=== PATIENT | female | born 1985 | race Caucasian/White ===

== ENCOUNTER 2023-03-25 10:53 | Outpatient (OUT) | payer OTHER, SELFPAY ==
--- NOTE | 2023-03-25 12:39 | PM.CN ---
Consult Note: HPI Data of Consult Patient: known to practice within the last 3 years Consult date: 03/25/23 Requesting Physician: Aaliyah Hampton MD Primary Care Provider: PETEY BURNETT Consult Narrative Reason for consult: low back, bilateral lower extremity pain. Narrative: this is a pleasant 38-year-old female who presents for assessment. She notes persistence of pain that radiates from her low back into the bilateral lower extremities. Her imaging was reviewed, which is significant for disc bulging at L4-L5 and L5-S1 with nerve impingement. She has engaged in physical therapy and provider directed home exercises for greater than a three month period, but these have not provided much relief. She utilizes various medications, including Lyrica and baclofen, which provided some relief. She otherwise denies adverse medication side effects or loss of bowel or bladder control. cc:: CC: Aaliyah Hampton MD Review of Systems ROS Status of ROS 10 or more systems reviewed and unremarkable except as noted in history and below Exam Constitutional Common normals: no apparent distress, oriented x3 and healthy appearing Respiratory Common normals: normal respiratory effort Effort & inspection: able to speak in complete sentences Back & Pelvis Other: tenderness to palpation throughout the bilateral lumbar spine and paraspinal musculature. Pain is elicited with flexion, extension, and lateral rotation of the lumbar spine. Strength is unremarkable throughout the bilateral lower extremities except for decreased strength rated at four out of five in the bilateral quadriceps femoris, anterior tibialis. Sensation noted to be unremarkable throughout bilateral lower extremities except for dysesthesia in the bilateral L4, L5 dermatomal distributions. Coordination remains intact. Gait remains nonantalgic. Extremity Common normals: normal to inspection Neuro Common normals: oriented x3, CN's II-XII intact bilaterally and no focal motor deficits Psych Common normals: mental status grossly normal and cooperative Assessment and Plan Assessment and Plan (1) Lumbar disc displacement without myelopathy: (2) Lumbar spinal stenosis: Plan this is a pleasant 38-year-old female who presents for assessment. She notes persistence of pain that radiates from her low back into the bilateral lower extremities. She has failed to respond to conservative measures for greater than a three month period, as noted above. Given her symptomatology and imaging findings, it is prudent to attempt bilateral L5 transforaminal epidural steroid injections to provide analgesia. Depending on her response, she may benefit from bilateral L4 transforaminal epidural steroid injections. She is in agreement with this plan. Medications were reviewed, and no changes were made at this time. She will follow-up after the procedure is completed.
== END 2023-03-25 10:54 | disposition home or self-care (01) ==
PROVIDERS: PCP Physician Assistant; Visit Provider Anesthesiology
DX: M51.26 Other intervertebral disc displacement, lumbar region (principal); M48.061 Spinal stenosis, lumbar region without neurogenic claudication
CPT/HCPCS: G0463

== ENCOUNTER 2023-04-01 07:34 | Day surgery (SDC) | payer OTHER, SELFPAY ==
[2023-04-01 07:49] VITALS: BP 115/76; PULSE 56; RESP 14; TEMP 36.7; O2SAT 99
[2023-04-01 07:55] LABS: HCG Qualitative NEGATIVE (NEGATIVE)
[2023-04-01] MEDS: IOHEXOL 240 MG/ML - 10 ML VIAL INJ (08:40)
[2023-04-01] MEDS: LIDOCAINE HCL 2% PF 100 MG/5 ML VIAL INJ (08:40)
[2023-04-01] MEDS: BUPIVACAINE HCL 0.25% PF 25 MG/10 ML VIAL INJ (08:40)
[2023-04-01] MEDS: TRIAMCINOLONE ACETONIDE 40 MG/ML VIAL INJ (08:41)
--- NOTE | 2023-04-01 08:42 | W.PM.PROCNOT ---
Date of procedure: 04/01/23 Pre-op diagnosis: Lumbar stenosis with neurogenic claudication Post-op diagnosis: same Procedure: Procedure: Bilateral L5-S1 transforaminal epidural steroid injection Medications: Bupivacaine 0.25% 2cc, normal saline 0.9% 1cc, kenalog 40mg The patient was seen and examined in the preoperative holding area.? Informed consent was obtained and placed on the chart.? Patient was brought to the medical procedure unit and placed in the prone position where a timeout was completed verifying the correct patient, procedure site, position, and planned special equipment using sterile aseptic technique.? Under direct fluoroscopic visualization a 25-gauge Quincke tipped spinal needle was advanced at level left L5-S1 to the designated neural foramen where contrast dye was injected to show adequate spread.? There was no evidence of vascular or adverse uptake.? Epidural spread was appreciated.? The above-mentioned injectate was then placed in a 1.5 mL aliquot preceded by negative aspiration.? The needle was removed. The same procedure, at the same level, was completed on the opposite side. ? Patient was taken to the postprocedural recovery area and monitored for an appropriate length of time before found suitable for discharge in the accompaniment of a responsible adult. Anesthesia: None Surgeon: Aaliyah Hampton Pathology: none sent Condition: stable
[2023-04-01 14:19] VITALS: BP 137/62; BP 144/69; PULSE 60; PULSE 62; RESP 18; O2SAT 97
== END 2023-04-01 08:47 | disposition home or self-care (01) ==
PROVIDERS: PCP Physician Assistant; Visit Provider Anesthesiology
DX: M48.062 Spinal stenosis, lumbar region with neurogenic claudication (principal)
CPT/HCPCS: 36415; 64483; 84703; Q9966

== ENCOUNTER 2023-04-15 08:22 | Day surgery (SDC) | payer OTHER, SELFPAY ==
[2023-04-15 08:48] VITALS: BP 109/81; PULSE 63; RESP 16; TEMP 36.6; O2SAT 100
[2023-04-15 08:50] LABS: HCG Qualitative NEGATIVE (NEGATIVE)
[2023-04-15] MEDS: IOHEXOL 240 MG/ML - 10 ML VIAL INJ (09:44)
[2023-04-15] MEDS: TRIAMCINOLONE ACETONIDE 40 MG/ML VIAL INJ (09:44)
[2023-04-15] MEDS: BUPIVACAINE HCL 0.25% PF 25 MG/10 ML VIAL INJ (09:44)
[2023-04-15] MEDS: LIDOCAINE HCL 2% PF 100 MG/5 ML VIAL INJ (09:44)
--- NOTE | 2023-04-15 09:46 | P.ON_ITS ---
Date of procedure: 04/15/23 Pre-op diagnosis: Lumbar stenosis with neurogenic claudication Post-op diagnosis: same Procedure: Procedure: Bilateral L4-5 transforaminal epidural steroid injection Medications: Bupivacaine 0.25% 2cc, lidocaine 1% 1cc, kenalog 80mg The patient was seen and examined in the preoperative holding area.? Informed consent was obtained and placed on the chart.? Patient was brought to the medical procedure unit and placed in the prone position where a timeout was completed verifying the correct patient, procedure site, position, and planned special equipment using sterile aseptic technique.? Under direct fluoroscopic visualization a 25-gauge Quincke tipped spinal needle was advanced at level left L4-5 to the designated neural foramen where contrast dye was injected to show adequate spread.? There was no evidence of vascular or adverse uptake.? Epidural spread was appreciated.? The above-mentioned injectate was then placed in a 1.5 mL aliquot preceded by negative aspiration.? The needle was removed. The same procedure, at the same level, was completed on the opposite side. ? Patient was taken to the postprocedural recovery area and monitored for an appropriate length of time before found suitable for discharge in the accompaniment of a res ponsible adult. Anesthesia: None Surgeon: Aaliyah Hampton Pathology: none sent Condition: stable Disposition: no change
[2023-04-15 13:59] VITALS: BP 120/79; BP 124/78; PULSE 74; PULSE 76; RESP 18; O2SAT 97
== END 2023-04-15 09:50 | disposition home or self-care (01) ==
LOC: SURGOUT 08:23
PROVIDERS: PCP Physician Assistant; Visit Provider Anesthesiology
DX: M48.062 Spinal stenosis, lumbar region with neurogenic claudication (principal)
CPT/HCPCS: 36415; 64483; 84703; Q9966

== ENCOUNTER 2023-04-29 13:00 | Outpatient (OUT) | payer OTHER, SELFPAY ==
--- NOTE | 2023-04-29 14:11 | PM.CN ---
Consult Note: HPI Data of Consult Patient: known to practice within the last 3 years Consult date: 04/29/23 Requesting Physician: Aaliyah Hampton MD Primary Care Provider: PETEY BURNETT Consult Narrative Reason for consult: low back pain Narrative: this is a pleasant 38-year-old female who presents for assessment. She had significant relief after her recent lumbar epidural steroid injection of her bilateral lower extremity pain. She notes some improvement of her axial low back pain, but this still persists currently. She had a lumbar radiofrequency ablation completed in May 2022, which provided significant relief of >50% for greater than six months. She continues to engage in a course of provider directed home exercises, which has not provided relief for greater than six weeks. She continues to utilize [id number] pain medications, as well as Lyrica and baclofen, which provide mild relief. She otherwise denies effort medication side effects or loss of bowel or bladder control. cc:: CC: Aaliyah Hampton MD Review of Systems ROS Status of ROS 10 or more systems reviewed and unremarkable except as noted in history and below [facility] Medical History Surgical History Meds Home Medications and Allergies Home Medications Medication Instructions Recorded Confirmed Type acetaminophen 325 mg capsule 650 mg PO BID 03/27/23 04/15/23 History (Tylenol) alprazolam 0.25 mg tablet (Xanax) 0.25 mg PO DAILY PRN anxiety 03/27/23 04/15/23 History baclofen 10 mg tablet 10 mg PO .hs PRN muscle spasm 03/27/23 04/15/23 History duloxetine 30 mg capsule,delayed 30 mg PO QDAY 03/27/23 04/15/23 History release duloxetine 60 mg capsule,delayed 60 mg PO QDAY 03/27/23 04/15/23 History release pantoprazole 20 mg tablet,delayed 20 mg PO DAILY 03/27/23 04/15/23 History release pregabalin 50 mg capsule 50 mg PO TID 03/27/23 04/15/23 History propranolol 120 mg capsule,24 120 mg PO Q24H 03/27/23 04/15/23 History hr,extended release topiramate 50 mg tablet 50 mg PO BID 03/27/23 04/15/23 History Allergies Allergy/AdvReac Type Severity Reaction Status Date / Time latex Allergy Severe Rash Verified 04/01/23 07:46 amitriptyline AdvReac Mild Nausea Unverified 04/15/23 08:47 NSAIDS (Non-Steroidal AdvReac Verified 04/01/23 07:46 Anti-Inflamma Exam Constitutional Common normals: no apparent distress, oriented x3 and healthy appearing Respiratory Common normals: normal respiratory effort Effort & inspection: able to speak in complete sentences Back & Pelvis Other: tenderness to palpation throughout the lumbar spine and paraspinal musculature. Pain is elicited with flexion, extension, and lateral rotation of the lumbar spine. Facet loading maneuvers aree positive bilaterally. Coordination remains intact. Gait remains nonantalgic. Extremity Common normals: normal to inspection Neuro Common normals: oriented x3, CN's II-XII intact bilaterally and no focal motor deficits Psych Common normals: mental status grossly normal and cooperative Assessment and Plan Assessment and Plan (1) Lumbar spondylosis: (2) Lumbar spinal stenosis: (3) Lumbar disc displacement without myelopathy: Plan this is a pleasant 38-year-old female who presents for assessment. I am glad that she had significant relief of her radiating pain after her recent lumbar epidural steroid injection. I suspect that her residual axial low back pain is a consequence of her lumbar spondylosis. I suspect that the effects of her previous ablation have worn off, given her symptoms. Given her current symptomatology and previous relief, it is prudent to repeat bilateral L4-L5, L5-S1 radio frequency ablation under fluoroscopic guidance. This will be done at the standard eighty degree Celsius temperature for ninety seconds at each level. She is in agreement with this plan. Medications were reviewed, and no changes were made at this time. She will follow-up after the procedure is completed.
== END 2023-04-29 13:01 | disposition home or self-care (01) ==
LOC: PM 13:00
PROVIDERS: PCP Physician Assistant; Visit Provider Anesthesiology
DX: M47.816 Spondylosis without myelopathy or radiculopathy, lumbar region (principal); M51.26 Other intervertebral disc displacement, lumbar region; M48.061 Spinal stenosis, lumbar region without neurogenic claudication
CPT/HCPCS: G0463

== ENCOUNTER 2023-07-02 11:09 | Outpatient (OUT) | payer OTHER, SELFPAY ==
[2023-07-02 11:56] LABS: Creatine Kinase 55 U/L (26-192); Magnesium 1.9 mg/dL (1.8-2.4); Myoglobin 24 ng/mL (9-82)
[2023-07-03 12:09] LABS: ANA Direct Negative (Negative)
== END 2023-07-02 11:10 | disposition home or self-care (01) ==
LOC: LAB 11:10
PROVIDERS: PCP Physician Assistant
DX: M79.10 Myalgia, unspecified site (principal)
CPT/HCPCS: 36415; 82550; 83735; 83874

== ENCOUNTER 2023-08-09 17:28 | Emergency (ER) | payer OTHER, SELFPAY ==
[2023-08-09 17:32] VITALS: BP 129/94; PULSE 71; RESP 20; TEMP 37; O2SAT 100; BMI 26.5
--- NOTE | 2023-08-09 18:06 | ED.URI1 ---
HPI - URI/Sore Throat General Chief Complaint: Upper Respiratory Infection Stated Complaint: FLU LIKE SYMPTOMS, DIFF BREATHING Time Seen by Provider: 08/09/23 18:06 Source: patient Limitations: no limitations History of Present Illness HPI Narrative: is patient's here with aches and pains sinus drainage slight sore throat. 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 She did receive the influenza vaccine this year. She had Covid previously and code vaccines but none recently. A family member had Covid two weeks ago but she didn't start feeling bad until today. She does not have nausea vomiting or diarrhea there is no shortness of breath. Slight cough. She is otherwise healthy. Related Data Home Medications Medication Instructions Recorded Confirmed alprazolam 0.25 mg tablet (Xanax) 0.25 mg PO DAILY PRN anxiety 03/27/23 08/09/23 baclofen 10 mg tablet 10 mg PO .hs PRN muscle spasm 03/27/23 08/09/23 duloxetine 30 mg capsule,delayed 90 mg PO QDAY 03/27/23 08/09/23 release pregabalin 50 mg capsule 50 mg PO TID 03/27/23 08/09/23 propranolol 120 mg capsule,24 120 mg PO Q24H 03/27/23 08/09/23 hr,extended release cariprazine 1.5 mg capsule 1.5 mg PO DAILY 08/09/23 08/09/23 (Vraylar) ondansetron 4 mg disintegrating 4 mg PO DAILY PRN nausea and 08/09/23 08/09/23 tablet vomiting rimegepant 75 mg disintegrating 75 mg PO DAILY PRN migraine 08/09/23 08/09/23 tablet (Nurtec ODT) headache trazodone 50 mg tablet 50 mg PO DAILY 08/09/23 08/09/23 Allergies Allergy/AdvReac Type Severity Reaction Status Date / Time latex Allergy Severe Rash Verified 04/01/23 07:46 amitriptyline AdvReac Mild Nausea Unverified 04/15/23 08:47 NSAIDS (Non-Steroidal AdvReac Verified 04/01/23 07:46 Anti-Inflamma PFSH PFS Medical History Surgical History Social History Smoking status: Never smoker Exam Narrative Exam Narrative: awake alert pleasant does not appear acutely ill. Her pulse ox is a hundred percent on room air there is no respiratory distress she complete sentences there is no cough during the examination. Overall her chest examination the lungs are completely clear with no wheezes rales or rhonchi there is no pleural or pericardial rub. HEENT showed no evidence of pharyngitis. There is no sinus drainage or discharge at this time. Nasal areas not congested. Her joints not red, warm or swollen she just has generalized aches and pains. Constitutional Vital Signs, click to edit/add: Last Vital Signs Temp 98.6 F 08/09/23 17:32 Pulse 71 08/09/23 17:32 Resp 20 08/09/23 17:32 BP 129/94 H 08/09/23 17:32 Pulse Ox 100 08/09/23 17:32 O2 Del Method Room Air 08/09/23 17:32 Course Vital Signs Vital signs: Vital Signs Temperature 98.6 F 08/09/23 17:32 Pulse Rate 71 08/09/23 17:32 Respiratory Rate 20 08/09/23 17:32 Blood Pressure 129/94 H 08/09/23 17:32 Pulse Oximetry 100 08/09/23 17:32 Oxygen Delivery Method Room Air 08/09/23 17:32 Temperature 98.6 F 08/09/23 17:32 Pulse Rate 71 08/09/23 17:32 Respiratory Rate 20 08/09/23 17:32 Blood Pressure 129/94 H 08/09/23 17:32 Pulse Oximetry 100 08/09/23 17:32 Oxygen Delivery Method Room Air 08/09/23 17:32 MDM - URI/Sore Throat MDM Narrative Medical decision making narrative: screening tests will include influenza Covid and a chest x-ray. She probably has a viral syndrome. Care will be turned over to Dr. bolanos at the change of shift. Covid testing came back positive while here in the Emergency Room. This was discussed with the patient Discharge Plan Discharge Chief Complaint: Upper Respiratory Infection Clinical Impression: Viremia Patient Disposition: Home, Self-Care Time of Disposition Decision: 18:54 Prescriptions / Home Meds: No Action baclofen 10 mg tablet 10 mg PO .hs PRN (Reason: muscle spasm) propranolol 120 mg capsule,extended release 24 hr 120 mg PO Q24H duloxetine 30 mg capsule,delayed release(DR/EC) 90 mg PO QDAY pregabalin 50 mg capsule 50 mg PO TID alprazolam [Xanax] 0.25 mg tablet 0.25 mg PO DAILY PRN (Reason: anxiety) Patient Comments: very rare need trazodone 50 mg tablet 50 mg PO DAILY Nurtec ODT 75 mg tablet,disintegrating 75 mg PO DAILY PRN (Reason: migraine headache) ondansetron 4 mg tablet,disintegrating 4 mg PO DAILY PRN (Reason: nausea and vomiting) Vraylar 1.5 mg capsule 1.5 mg PO DAILY Additional Instructions: off work five days, follow with primary care doctor. Ibuprofen or Tylenol for fever reduction. Stay hydrated. Stand Alone Forms: Portal Instructions Referrals: PETEY BURNETT [Primary Care Provider] - 1 week
--- NOTE | 2023-08-09 18:15 | XR_ITS ---
The [address] [address] Patient Name: NORAH ESCAMILLA MRN: [id number] date: 1985 Sex: F Assigned Patient Location: ER Current Patient Location: Accession/Order Number: [id number] Exam Date: 08/09/2023 18:50 Report Date: 08/09/2023 19:21 At the request of: MIGEL JACOBSEN Procedure: XR chest 1V EXAMINATION: XR chest 1V HISTORY: Headache, dizziness, cough and shortness of breath COMPARISON: Chest x-rays 11/23/2019 TECHNIQUE: Portable chest FINDINGS: The lung parenchyma is free of consolidation or infiltrate. No pneumothorax or pleural effusion. The cardiac, mediastinal and hilar contours are normal. The visualized osseous structures exhibit no gross abnormality. XR/XR chest 1V IMPRESSION: No acute cardiopulmonary abnormality. Electronically authenticated by: MANOHAR TANG Date: 08/09/2023 19:21
[2023-08-09 18:49] LABS: SARS-CoV-2 Ag POSITIVE (NEGATIVE)
[2023-08-09 18:49] LABS: Influenza Virus A Antigen Negative; Influenza Virus B Antigen Negative; Internal Control Within Normal Limits
== END 2023-08-09 19:21 | disposition home or self-care (01) ==
PROVIDERS: Emergency Provider Emergency Medicine Emergency Medical Services; PCP Physician Assistant
DX: U07.1 COVID-19 (principal); Z86.16 Personal history of COVID-19; Z79.899 Other long term (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 therapy
CPT/HCPCS: 71045; 87798; 87804; 87811; 99285

== ENCOUNTER 2023-08-26 12:56 | Outpatient (RCR) | payer OTHER, SELFPAY | END 2023-09-15 09:00 | disposition home or self-care (01) | LOC: PT 12:56 | PROVIDERS: PCP Physician Assistant; Visit Provider Nurse Practitioner Family | DX: M47.812 Spondylosis without myelopathy or radiculopathy, cervical region (principal); M79.10 Myalgia, unspecified site | CPT/HCPCS: 97012; 97110; 97140; 97162 ==

== ENCOUNTER 2023-09-16 09:02 | Outpatient (RCR) | payer OTHER, SELFPAY | END 2023-09-25 15:16 | disposition home or self-care (01) | LOC: PT 09:02 | PROVIDERS: PCP Physician Assistant; Visit Provider Nurse Practitioner Family | DX: M47.812 Spondylosis without myelopathy or radiculopathy, cervical region (principal); M79.10 Myalgia, unspecified site | CPT/HCPCS: 97012; 97110; 97112; 97140 ==

== ENCOUNTER 2023-09-25 09:08 | Outpatient (OUT) | payer OTHER, SELFPAY ==
--- NOTE | 2023-09-25 09:19 | P.CN_ITS ---
Consult Note: HPI Data of Consult Patient: known to practice within the last 3 years Consult date: 04/29/23 Requesting Physician: Miladys Vivas NP Primary Care Provider: PETEY BURNETT Consult Narrative Reason for consult: low back pain Narrative: this is a pleasant 38-year-old female who presents for assessment. She had significant relief after her recent lumbar epidural steroid injection of her bilateral lower extremity pain. She notes some improvement of her axial low back pain, but this still persists currently. She had a lumbar radiofrequency ablation completed in the past, which provided significant relief of >50% for greater than six months. She continues to engage in a course of provider directed home exercises, which has not provided relief for greater than six weeks. She continues to utilize [id number] pain medications, as well as Lyrica and baclofen, which provide mild relief. She otherwise denies effort medication side effects or loss of bowel or bladder control. cc:: CC: Miladys Vivas NP Review of Systems ROS Status of ROS 10 or more systems reviewed and unremark able except as noted in history and below Musculoskeletal Reports: back pain PFSH PFSH Medical History Surgical History H/O gastric bypass ?Z98.84 - Bariatric surgery status (ICD-10) S/P foot surgery, right ?Z98.890 - Other specified postprocedural states (ICD-10) S/P cholecystectomy ?Z90.49 - Acquired absence of other specified parts of digestive tract (ICD- 10) S/P ?Z98.891 - History of uterine scar from previous surgery (ICD-10) Social History Smoking status: Never smoker Meds Home Medications and Allergies Home Medications Medication Instructions Recorded Confirmed Type alprazolam 0.25 mg tablet (Xanax) 0.25 mg PO DAILY PRN anxiety 03/27/23 08/09/23 History baclofen 10 mg tablet 10 mg PO .hs PRN muscle spasm 03/27/23 08/09/23 History duloxetine 30 mg capsule,delayed 90 mg PO QDAY 03/27/23 08/09/23 History release pregabalin 50 mg capsule 50 mg PO TID 03/27/23 08/09/23 History propranolol 120 mg capsule,24 120 mg PO Q24H 03/27/23 08/09/23 History hr,extended release cariprazine 1.5 mg capsule 1.5 mg PO DAILY 08/09/23 08/09/23 History (Vraylar) ondansetron 4 mg disintegrating 4 mg PO DAILY PRN nausea and 08/09/23 08/09/23 History tablet vomiting rimegepant 75 mg disintegrating 75 mg PO DAILY PRN migraine 08/09/23 08/09/23 History tablet (Nurtec ODT) headache trazodone 50 mg tablet 50 mg PO DAILY 08/09/23 08/09/23 History Allergies Allergy/AdvReac Type Severity Reaction Status Date / Time latex Allergy Severe Rash Verified 04/01/23 07:46 amitriptyline AdvReac Mild Nausea Unverified 04/15/23 08:47 NSAIDS (Non-Steroidal AdvReac Verified 04/01/23 07:46 Anti-Inflamma Exam Constitutional Documenting provider has reviewed patient's vital signs: yes Common normals: no apparent distress, oriented x3 and healthy appearing General appearance: cooperative HENMT Common normals: normocephalic, hearing grossly normal bilaterally and moist oral mucous membranes Head and scalp: normocephalic Eye Common normals: PERRL Pupil: PERRL Neck & C-Spine Common normals: full ROM General: normal visual inspection Chest Common normals: inspection of chest normal Respiratory Common normals: normal respiratory effort Effort & inspection: able to speak in complete sentences Back & Pelvis Lumbar spine/lower back: ROM limited, pain with ROM and straight leg raise negative bilaterally Sacroiliac joints: SI joints normal Other: tenderness to palpation throughout the lumbar spine and paraspinal musculature. Pain is elicited with flexion, extension, and lateral rotation of the lumbar spine. Facet loading maneuvers aree positive bilaterally. Coordination remains intact. Gait remains nonantalgic. Extremity Common normals: normal to inspection and full ROM Neuro Common normals: oriented x3, CN's II-XII intact bilaterally, moves all extremities and no focal motor deficits Sensorium/orientation: alert Motor exam: strength 5/5 throughout and no movement abnormalities noted Psych Common normals: mental status grossly normal and cooperative Speech: normal speech Thought process: normal thought process Assessment and Plan Assessment and Plan (1) Lumbar spondylosis: (2) Lumbar spinal stenosis: Plan this is a pleasant 38-year-old female who presents for assessment. I suspect that her residual axial low back pain is a consequence of her lumbar spondylosis. I suspect that the effects of her previous ablation have worn off, given her symptoms. Given her current symptomatology and previous relief, it is prudent to repeat bilateral L4-L5, L5-S1 radio frequency ablation under fluoroscopic guidance with 10mg PO valium for anxiety and safety. This will be done at the standard eighty degree Celsius temperature for ninety seconds at each level. She is in agreement with this plan. Medications were reviewed, and no changes were made at this time. She will follow-up after the procedure is completed. continue current medications. tolerating well without side effects f/u 1 month after RFA
--- OUTSIDE RECORDS SUMMARY | 2023-09-25 09:22 | XMS_ITS | CCD ---
Author Name Unknown Address [address] [facility] [address] [place] [address] Organization [facility] Care Team Providers Care Product Design Manager Name Role Phone Vernon Castano III Primary Care Physician Eyad ROSAS DO, Rolland R Primary Care Provider MISC, DR CHO Attending Unavailable MISC, DR CHO Primary Care Unavailable MISC, DR CHO Admitting Unavailable PAY, DR RAUSCH Admitting Unavailable MISC, DR CHO Primary Care Unavailable PAY, DR RAUSCH Attending Unavailable PAY, DR RAUSCH Consulting Unavailable MISC, DR CHO Primary Care Unavailable KENTON, ANGELA Admitting Unavailable KENTON, ANGELA Attending Unavailable KENTON, ANGELA Consulting Unavailable KENTON, ANGELA Admitting Unavailable MISC, DR CHO Consulting Unavailable MISC, DR CHO Primary Care Unavailable KENTON, ANGELA Attending Unavailable KENTON, ANGELA Consulting Unavailable KENTON, ANGELA Admitting Unavailable MISC, DR CHO Consulting Unavailable MISC, DR HCO Primary Care Unavailable KENTON, ANGELA Attending Unavailable STANLEY, DR HERMES Park Consulting Unavailable KENTON, ANGELA Consulting Unavailable KENTON, ANGELA Admitting Unavailable MISC, DR CHO Primary Care Unavailable KENTON, ANGELA Attending Unavailable KENTON, ANGELA Consulting Unavailable HORTENCIA, PETEY Admitting Unavailable WEST, DR MANOHAR Walker Consulting Unavailable HORTENCIA, PETEY Attending Unavailable MISC, DR CHO Primary Care Unavailable HORTENCIA, PETEY Consulting Unavailable Jose DIETZer Attending Unavailable Oral DIETZ Admitting Unavailable Otis Burch Attending Unavailable NONE, XXXX Referring Unavailable MD Otis Burch Admitting Unavailable Oral DIETZ Attending Unavailable Otis Burch Referring Unavailable Otis Burch Attending Unavailable MD Otis Burch Admitting Unavailable Aaliyha Hampton MD Attending Unavailable Gieditis , Aaliyah Arellano Attending Unavailable Gieditis , Aaliyah Arellano Attending Unavailable Gifletcheritis , Aaliyah Arellano Attending Unavailable Allergies Allergy Classification Reported Allergen(s) Allergy Type Date of Onset Reaction(s) Facility (8 sources) Latex; Translations: [latex] Drug allergy 4 Cutaneous eruption (morphologic abnormality), Other: See Comments [facility] (12 sources) SUMAtriptan; Translations: [sumatriptan] Drug Allergy 7 Other: See Comments [facility] (1 source) Amitriptyline Drug Allergy [facility] (1 source) NSAIDs Drug allergy (disorder) [facility] (1 source) Plasmin Drug Allergy [facility] Medications Current Medications Medication Drug Class(es) Dates Sig (Normalized) Sig (Original) bisacodyl 5 mg delayed release oral tablet (2 sources) Stimulant Laxative Start: 01-25-2021 take 1 tablet by mouth once daily Dulcolax 5 mg Tab-EC 5 mg = 1 tab(s), Oral, Daily, # 50 tab(s), Refills(s) 1, Pharmacy: [facility], 155, cm, 01/25/21 14:00:00 EDT, Height/Length Dosing, 77.7, kg, 01/25/21 14:00:00 EDT, Weight Dosing Start Date: 01/25/21 Status: Ordered dicyclomine hydrochloride 10 mg oral capsule (6 sources) Anticholinergic Start: 03-01-2022 take 4 capsules by mouth four times daily as needed for pain Bentyl 10 mg Cap 40 mg, Oral, QID, PRN Pain, # 45 cap(s), Refills(s) 4, Pharmacy: [facility], 155, cm, 03/01/22 15:01:00 EDT, Height/Length Dosing, 54, kg, 03/01/22 15:01:00 EDT, Weight Dosing Start Date: 03/01/22 Status: Ordered dicyclomine HCl (BENTYL ORAL) Take by mouth. 0 Active Comment on above: Take by mouth. Nurtec ODT (4 sources) Start: 01-25-2021 take 1 mg by mouth once Nurtec ODT mg, Oral, Once, Refills(s) 0 Start Date: 01/25/21 Status: Ordered Protonix (6 sources) Proton Pump Inhibitor Start: 09-15-2020 Protonix Oral, Daily, Refills(s) 0 Start Date: 09/15/20 Status: Ordered take 1 tablet by mouth once mayuri y pantoprazole DR (PROTONIX) 40 mg tablet Take 40 mg by mouth once daily. 0 Active Comment on above: Take 40 mg by mouth once daily. Miralax (2 sources) Osmotic Laxative Start: 01-25-2021 take 1 g by mouth once daily MiraLax gm, Oral, Daily, Refill(s) 0 Start Date: 01/25/21 Status: Ordered pregabalin 25 mg oral capsule (4 sources) Start: 03-01-2022 take 1 mg by mouth three times daily Lyrica 25 mg Cap mg cap(s), Oral, TID, Refills(s) 0 Start Date: 03/01/22 Status: Ordered Propranolol (6 sources) beta-Adrenergic Ron Start: 01-25-2021 propranolol Refills(s) 0 Start Date: 01/25/21 Status: Ordered Start: 12-28-2020 take 1 capsule by [facility] once daily propranolol ER (INDERAL LA) 120 mg 24 hr capsule Take 120 mg by mouth once daily. 0 12/28/2020 Active Comment on above: Take 120 mg by mouth once daily. tiZANidine 4 mg oral capsule (2 sources) Central alpha-2 Adrenergic Agonist Start: 04-27-2019 take 1 capsule by mouth three times daily as needed tizanidine 4 mg oral capsule 4 mg = 1 cap(s), Oral, TID, PRN Prophylaxis, Refills(s) 0 Start Date: 04/27/19 Status: Ordered topiramate 100 mg oral tablet (6 sources) Start: 04-27-2019 take 1 tablet by mouth twice daily topiramate 100 mg Tab 100 mg = 1 tab(s), Oral, BID, Refills(s) 0, Migraine headache Start Date: 04/27/19 Status: Ordered take 1 tablet by mouth twice edmund ly topiramate (TOPAMAX) 50 mg tablet Take 50 mg by mouth twice daily. 0 Active Comment on above: Take 50 mg by mouth twice daily. Ventolin HFA 90 mcg/inh Aerosol (4 sources) Start: 9 take 2 puff(s) by inhalation four times daily Ventolin HFA 90 mcg/inh Aerosol 2 puff(s), Inhalation, QID Wheezing, Refill(s) 0 Start Date: 04/27/19 Status: Ordered 24 hr verapamil hydrochloride 120 mg extended release oral capsule (6 sources) Calcium Channel Ron Start: 1 take 1 mg by mouth once daily verapamil 120 mg Cap-ER mg cap(s), Oral, Daily, Refills(s) 0 Start Date: 01/25/21 Status: Ordered Start: 12-28-2020 take 1 tablet by antwan th once daily verapamil SR (CALAN SR, ISOPTIN SR) 120 mg CR tablet Take 1 tablet by mouth once daily. 0 12/28/2020 Active Comment on above: Take 1 tablet by antwan th once daily. Work Excuse (1 source) Start: 08-29-2022 Work Excuse Wo rk Excuse, Please excuse patient from work 08/28/22 and 08/29/22, Print Requisition, Compound Start Date: 08/29/22 Status: Ordered Completed/Discontinued Medications Medication Drug Class(es) Dates Sig (Normalized) Sig (Original) ALPRAZolam (2 sources) Benzodiazepine alprazolam (XANA X ORAL) Take by mouth. 0 Active Comment on above: Take by mouth. baclofen 10 mg oral tablet (2 sources) gamma-Aminobutyric Acid-ergic Agonist baclofen (LIORESAL) 10 mg tablet Take 10 mg by mouth as directed. 0 Active Comment on above: Take 10 mg by mouth as directed. biotin 5 mg disintegrating oral tablet (2 sources) biotin 5,000 mcg ODT Take by mouth. 0 Active Comment on above: Take by mouth. cetirizine hydrochloride 10 mg oral tablet (2 sources) Histamine-1 Receptor Antagonist take 1 tablet by mouth once daily cetirizine (ZYRTEC) 10 mg tablet Take 10 mg by mouth once daily. 0 Active Comment on above: Take 10 mg by mouth once daily. Clotrimazole (2 sources) Azole Antifungal clotrimazole (ALEVAZOL TOPICAL) Apply to affected area. 0 Active Comment on above: Apply to affected ar ea. fexofenadine hydrochloride 180 mg oral tablet (2 sources) Histamine-1 Receptor Antagonist take 1 tablet by mouth once daily fexofenadine (RODY ALLERGY) 180 mg tablet Take 180 mg by mouth once daily. 0 Active Comment on above: Take 180 mg by mouth once daily. FLUoxetine 10 mg oral capsule (2 sources) Serotonin Reuptake Inhibitor take 1 capsule by mouth once daily FLUoxetine (PROZAC) 10 mg capsule Take 10 mg by mouth once daily. 0 Active Comment on above: Take 10 mg by mouth once daily. gabapentin 100 mg oral capsule (2 sources) Anti-epileptic Agent Start: 10-13-2020 take 1 capsule by mouth three times daily gabapentin (NEURONTIN) 100 mg capsule Take 1 capsule by mouth three times daily for 14 days. 42 capsule 0 10/13/2020 Active Comment on above: Take 1 capsule by mo [facility] three times daily for 14 days. Lactobacillus acidophilus (2 sources) Lactobacillus acidophilus (PROBIOTIC ORAL) Take by mouth. 0 Active Comment on above: Take by mouth. multivit-min/iron/f olic acid/K (BARIATRIC MULTIVITAMINS ORAL) (2 sources) multivit-min/iro n/f olic acid/K (BARIATRIC MULTIVITAMINS ORAL) Take by mouth. 0 Active Comment on above: Take by mouth. nystatin 100 unt/mg topical powder (2 sources) Polyene Antifungal Start: 01-23-2021 nystatin (MYCOSTATIN) powder Indications: S/P gastric bypass , Fungal skin infection Apply to affected skin up to 4 times per day 60 g 2 01/23/2021 Active Comment on above: Apply to affected sk in up to 4 times per day ondansetron 4 mg disintegrating oral tablet (2 sources) Serotonin-3 Receptor Antagonist Start: 10-13-2020 take 1 tablet by mouth every eight hours as needed ondansetron orally disintegrating (ZOFRAN ODT) 4 mg disintegrating tablet Take 1 tablet by mouth every 8 hours as needed for Nausea/Vomiting. 30 tablet 1 10/13/2020 Active Comment on above: Take 1 tablet by antwan every 8 hours as needed for Nausea/Vomiting. psyllium 525 mg oral capsule (2 sources) Start: 04-06-2020 take 8 capsules by mouth once daily Metamucil 525 mg oral capsule 1,050 mg = 2 cap(s), Oral, Daily, Take 2 hour apart from the other medications with at least 8 ounces of water, # 160 cap(s), Refills(s) 1, Pharmacy: [facility], 155, cm, 04/06/20 13:01:00 EDT, Height/Length Measured, 107.2, kg, 04/06/20 1... Start Date: 04/06/20 Status: Ordered rimegepant 75 mg disintegrating oral tablet (2 sources) Start: 01-12-2021 NURTEC ODT 75 mg disintegrating tablet Take 1 tablet by mouth PRN(NO DISPENSE) for Migraine Headache (see administration instructions). 0 01/12/2021 Active Comment on above: Take 1 tablet by antwan th PRN(NO DISPENSE) for Migraine Headache (see administration instructions). 72 hr scopolamine 0.0139 mg/hr transdermal system (2 sources) Anticholinergic Start: 10-13-2020 scopolamine (TRANSDERM-SCOP) patch 1.5 mg/72 hr (1 mg over 3 days) Apply 1 Patch as directed every 72 hours. Apply one patch behind the ear every 3 days 5 Patch 1 10/13/2020 Active Comment on above: Apply 1 Patch as dir ected every 72 hours. Apply one patch behind the ear every 3 days vitamin b12 1 mg oral tablet (2 sources) Vitamin B12 take 1 tablet by mouth once daily cyanocobalamin (VITAMIN B-12) 1,000 mcg tab Take 1,000 mcg by mouth once daily. 0 Active Comment on above: Take 1,000 mcg by mo uth once daily. Problems Active Problems Problem Classification Problem Date Documented Da te Episodic/Chronic Abdominal pain (6 sources) Left sided abdominal pain; Translations: [Left lower quadrant pain] Onset: 7 11-07-2020 Episodic Asthma (2 sources) Asthma; Translations: [Unspecified asthma, uncomplicated] 10-17-2020 Chronic Deficiency and other anemia (2 sources) Iron deficiency anemia; Translations: [Iron deficiency anemia, unspecified] 10-17-2020 Episodic Disorders of lipid metabolism (2 sources) Hyperlipidemia; Translations: [Hyperlipidemia, unspecified] 10-17-2020 Chronic Esophageal disorders (2 sources) Gastroesophageal reflux disease; Translations: [Gastro-esophageal reflux disease without esophagitis] 01-05-2020 Chronic Essential hypertension (2 sources) Hypertensive disorder; Translations: [Essential (primary) hypertension] 01-05-2020 Chronic Headache; including migraine (2 sources) Migraine; Translations: [Migraine, unspecified, not intractable, without status migrainosus] 01-05-2020 Chronic Other aftercare (1 source) Other usp (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 therapy; Translations: [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] Onset: 2 Episodic Other and unspecified benign neoplasm (4 sources) Polyp of colon 05-19-2020 Episodic Other gastrointestinal disorders (5 sources) Chronic idiopathic constipation; Translations: [Chronic idiopathic constipation] Onset: 2 Chronic Other gastrointestinal disorders (1 source) Bariatric surgery status; Translations: [Bariatric surgery status] Onset: 2 Episodic Other gastrointestinal disorders (4 sources) Alteration in bowel elimination 01-25-2021 Episodic Other gastrointestinal disorders (4 sources) Constipation 11-07-2020 Episodic Other gastrointestinal disorders (4 sources) Heartburn 05-19-2020 Episodic Other gastrointestinal disorders (1 source) History of bariatric surgical procedure; Translations: [Bariatric surgery status] Episodic Other nervous system disorders (1 source) Other chronic pain; Translations: [OTHER CHRONIC PAIN] Onset: 2 Chronic Other nervous system disorders (1 source) Incoordination; Translations: [Other lack of coordination] Onset: 2 Episodic Other nervous system disorders (4 sources) Muscular incoordination 11-07-2020 Episodic Other skin disorders (1 source) Skin finding; Translations: [Excessive and redundant skin and subcutaneous tissue] Episodic Residual codes; unclassified (2 sources) Obstructive sleep apnea syndrome; Translations: [Obstructive sleep apnea (adult) (pediatric)] 10-17-2020 Chronic Residual codes; unclassified (1 source) Acquired absence of other specified parts of digestive tract; Translations: [ACQ ABSENCE OTH PART DIGESTV TRACT] Onset: 2 Episodic Spondylosis; intervertebral disc disorders; other back problems (10 sources) Spondylosis without myelopathy or radiculopathy, lumbar region; Translations: [Other intervertebral disc degeneration, lumbar region] Onset: 2 Chronic Spondylosis; intervertebral disc disorders; other back problems (5 sources) Cervicalgia; Translations: [Spinal stenosis, cervical region] Onset: 2 Episodic Unclassified (4 sources) History of bypass of stomach 11-07-2020 Unclassified (1 source) LOW BACK PAIN, UNSPECIFIED; Translations: [LOW BACK PAIN, UNSPECIFIED] Onset: 2 Past or Other Problems Problem Classification Problem Date Documented Date Episodic/Chronic Calculus of urinary tract (2 sources) Ureteric stone; Translations: [Calculus of ureter] Onset: 06-27-2017 06-27-2017 Episodic Immunizations and screening for infectious disease (2 sources) Anti-nuclear factor positive; Translations: [Other specified abnormal immunological findings in serum] Onset: 07-23-2018 07-23-2018 Episodic Nausea and vomiting (2 sources) Postoperative nausea and vomiting; Translations: [Nausea with vomiting, unspecified] Onset: 10-24-2020 10-24-2020 Episodic Other connective tissue disease (2 sources) Fibromyalgia; Translations: [Fibromyalgia] Onset: 07-23-2018 07-23-2018 Episodic Other diseases of kidney and ureters (2 sources) Hydronephrosis; Translations: [Hydronephrosis with renal and ureteral calculous obstruction] Onset: 06-27-2017 06-27-2017 Episodic Other non-traumatic joint disorders (4 sources) Pain in right knee; Translations: [PAIN IN RIGHT KNEE] Onset: 05-24-2021 Episodic Other skin disorders (2 sources) Alopecia; Translations: [Nonscarring hair loss, unspecified] Onset: 07-23-2018 07-23-2018 Episodic Results Test Name Value Interpretation Reference Range Facility Coding Summary.on 10-17-2022 Coding Summary. [id number] Gh0bWw+P GhlYWQ+RO7WZMQnN12tgRFenP1DM 0yHIJ6DUHSWHFWVPI9KZY0ayWG9D WcjY3QnwhLh ExasfZLlRG69VUj1VRB2hFssMWhk oN1srFJmE6y9UtLtSA34oY27JYes CASyDuW0BqKefidoiOZm P5ziErRnpWWmUsi+PHRhYmxlIHdp HOMzTEhoETGrNgAgnHniQS8dPy6k ZGVyLWNvbGxhcHNlOiBj e8etFIVyRWfyRB6huWtnC4FvjPR2 EPPpi7u0Nh54aTR+VOCyFAK6mLgu ISoju795AyNep7pvIEC3 mMVdXSjcFCF0D51nv2S1QTYmQHHa ZGO5sNS0nQ9dhFffslvqA0XwmUHh HnQ8AVQ4jGGeaN8geNoh cnmkuI0xHbv+O51KNQ9XHEMBCL3X Zjq9T7PlFbgreVU+XT85HFBaKI53 uLSrcAXre6jetDg2FiAg RUWuANH6wWudIXacr2NiYWPsC29i aFEmu3E9VDMvwGjgkFSgMxIeyGZ2 bL0aVXpguhnhy3xatkuc Taurj2jpzm09xK49B78cPCeaLTRg UYG2GVIpLZPapEhsns6znT6rVv2+ SFxdd6mld8qglPq2BjGe MCSdyxVkwCbgRBJ4t5QeFd33C0Li fLmxh1NpCij7ae95fXCzt9M4nPP1 GThkQTXhsP8sCTvaZjC0 WVUgCiVspP55tHNcHAbaRd6pqDfy pMcdPD2eZPHmhbdmYYDwzW3pTCFv dPElmCwvXQ0dHKNesmru c556FeMiFBZ9IWYptYMxG7TdaH4a JjPiJFMyLHGzB4OtrFHbTRldR854 CWomMdI4CYEhedTxT3Vq QJNncIqkQpY5u4V7Lz9Vu3Bsdztu KEJ9KHuvTASyZcZvQlJkRaH7W7Rw Nas5MJXzbAggHG3tC7Se YYSzqshtjkdgaQE9XQLaZWNihL34 rHTpCBtlEx6jl1E4r656KEGlGRNu uS62Za0syHngNOBckDXF uJ8gwtlaj3ctsouzTkGaSRDgUJu6 WVi4AWXnbAsbVqVjMES9PuD8BFO0 sEZhnM9dcInekgerkS4c Oyc+O63cgF1cSVO5PEA7zwbsABKj brUuCS85DQ95L0ZwViwdsHBgxSK+ RKSqukKhvIdpHJ2qErOn l4sui1GiSAfuX0DfWFCdELjeDae6 XYKmCQW2kEA5uR5cHHBvEPvso1T8 aAR3S5HhnlIqww8xs0ds TXUvIHxrG52bkUAcw8F3KSWbaIB9 WWMktZbdUcGudD51Xpw+PGNvbGdy z9FoLwifh6lfl3nwrIs6 DkLnFIRecgDjvCynXYM6p2GsVy55 T45tJKmkZDVfKKEnJVOyXJIaeWzd hv6tnS0rFb0+PGNvbCB3 uSB4lB3sMIUjDsN3BJacC877CbZg pVNvMxpuz5uss9whhEg3IfSnMORd byEldGhuPED5y3FcMg98 O75bCGkxPLBeZUUoUIYwZAIemQtw gw8ldZ0mBy2+MO3wg2qnlq09vO63 dHI+IRJjVZB4oUquIWwj TJIgpD2mOFjhGaQ6ZZAxWdCrtL11 jVZkLBjgKt9xlUsvoTjbDQ3qSQKu ufwih268OqKua0qwOWSs kSWtLUmoIQB5K15ov4G9WEApTTAy VTD6bOT2hE6zgZgusobtfIZifIsh njRdzVheFLqyGKyiK253 IHRvcDsnPlBhdGllbnQgTmFtZTo8 R9TaQza8FEFlvOoaVL9vgCVkVUsa Bf3reIxfmKboUV6qLZIg lbecd619WzWfr2szUUVimKDiUNqm VTM3O27nx2X2ZRXlXGBdEVC1uOU0 nM1djGboqcberUPtrBme rhJyvQhaCBbbDJhlX323WORwcUit WmDtstGcVVWilKT2ID71BE86fOUn x7X7jDJ1H8DyGIBpsaxw qlufhLB1KPXvHGJtfL33Rq7tjEdr Gf4rZRGeONO5IRNjzHHmY4GskI6n YmZoDJMmWUVlC3SsdGDa EJkhM794MVmoSeD5MOLuemZoH3Pv FLFkzGhdVuG8v8E7Cd5WX3C5MB74 YI93jPEzh5P6hWR0E9Ze BCOoekyejofhcSL3HXRsNMErdX76 Hx8zmIrnAn0xNOAgVIX0BQLxmHLc V1CtjL4bQiCtZJHdRLQv I0ZzaRWzZPnkR072ZAnjGyY5IBHw oqYyH7FaIEXluClzFfL4q3F1Ro5N MQa1LM48DP70cXRuj5O8 pNQ0D3GwJOXyqingeavkxBD9OEEz PFBknA88Qv0eqSbmRc0hWSJqTDX0 ZETdiELiU8YkrH0yXyUb LLAwDTVjD1BiwYVvCYjnD310FGew YcA2JZBlnxXyW0KiTCZcqCvsBkL5 q5D0Uw3PXREeXF04ALD5 gYB1NJ94XE29O9FmGsawxQXohNZ+ PHRhYmxlIHdpZHRoPScxMDAlJyBz wVgaDP2kTo2zVZFxVESz iRrmnGWeCyCsh3bwOKRfTAtxER7v pYntG3QywBZ8RDUkz4x3Os09T73a Z4SlaFM+BBHnrSV8cBB0 fU0qKhVxGfI5OZmtU810WeBefBQk Peqjl2wcj7qpbZu5SdL6HCBcavXp pNcbDRP8u3FrGx79F44u DNmcMKPzOOCpVKChICZvxDqgki8u iG0lJw1+UMWkxJI1yVE3nH3kCrQc GxG4WXoiC796FlUgrGXy Epxab2lwp1viwWf6JdWmHYTemiXl iBjvEDG8b2XhVr56D5JbkAims6Iz Jos0qv58iIEfx9Y2kTS3 D3JrZMCxrluzhCXtmHddLG8xTKOh mohdBCAyeO0bNKXnT2h4PgEhFoE3 XUweZ5OcfhA1AEMemBRs PZeaYZE4Y91xg8G3XEQnYDNhDED6 uBW0nH8qwUgydahbdCHzeXmvlzBf rEbuUIptEVpgE829FUCa wBylSOUoaE8sOYZnrBIoeNbrBE0v CZYyelcfFjEZR1TSKHAWNNfHAMim dGQ+FRSxYRN2gLwaZCqa FCMktD0kIHQbY8e1OgLoVuY5FMnx D1MhAEAsohscOf36hX5cGqUtEmD9 HFjcZ9VlsnS9RCOlmWRt MQnvCZO9F40un9J1OEJoQLDkQUR3 lSR9xZ9ijQmrqrrxoOYabRtuyoZu wHqaUYroJDpfP689HHQk tJhmWoI1ZxW9GeR7GSR2W8KqFqy1 UARwaXyrDP9xqUJmGRbzJm3aqOqz wHqrTP5hYXRvheepFQCh mW4kMXAhyPGzzOceYK7yBQGnqlrc j885ZoTaFZY5HXWtlEDlC7PueK0g KdEwLHOxYFNbS8KizOYr SXthR113KIcsCsD6KOKwbkDzU7Vx HQFvvVomBhI2j5B1Tr9iCIPEVEJh czwvdGQ+XEJwZKZ3nDcb YPsiGSJxmH8vJNVtQ7k9AjMmZfP1 JIgcI1GoEUHjtfxpVi37cS2bDeMk WkR9VGkiU7BktuY5MOLu bFQwWFcuUKM0N16rl1U5KLDuVQQk TOM3uBU0hP4thAzhduxquSUpyUin ovHrbYnfFYwgRUbmP450 IHRvcDsnPkZlbWFsZTwvdGQ+PHRk ECO7tOejBEcmYIGuiS2iPSTfT2n6 PjFvQhL1PXjdW1GyWGVc ushoCh33cA0wKzNgMnU5SFphF6Ta sbP9FDMksMZrUOgzUKX4Q74ao9P3 RNPyFHBzWXT4sXN7dK9n bGlnbjogbGVmdDsgdmVydGljYWwt XUymO932KUSmoCuuJzVujL1iSGZg YWdlbWVudDwvdGQ+PC90 hh48Q9FtUeuxMqk0ZUReVIY9iFM0 rO7vPEHuAYzbp0C2iKB6C5LkqbKo ox1wd3xnENKpJEseF00n vOQre0R4XDVzmBZ1MJLopCubFsIf vK80Alu+LBMnyZjpk4PjCxunt3sn p2wyyGk1CrLjNXTpyeHc gWasDNJ6t5DlAa56E58cOAlfDDGb URPcOABiWVRpaMlbdk6swT2mIt9+ OWGpdGE3vRR2kM8zRsKs YcV1RTwuR584OvJyxRRvFizip0cs r8fuvCt7PqLpHDBgzoZxaWigIJP7 e5BeLb58U6XfkXhdu8Bb Pez7bq00uHVgo2P4nIZ9I7MlKCMj yuxokOPirKkvLZ5vDWPlyhpqTTSz oG9rABHwD4q1UrYwAaY5 BPowT1DdrbY0MKBnfYKnQUEbuUGC mF0nmxwcq8nsfxliHlPdACAiDMa4 DEc7OHGkeEvlThAmVOD5 EnG9OOT7nCPjqV1xuKrulhgfiD8b Oyc+GYu6f2wnxUPnGK9vdXB1BS49 QA21iXCyf9P1wRX3D3Uf FNBukhlhpiqgcWD6VDMhZVUuqA31 Cv8mjAwuMh0mGIQkJUV5FXFqxBYr N9FowE7tRnEcIVBaOFUk W3IzeZNpVXpwH874RYyiHeH8LLRp bqNzD6XtRVFjeBotFbZ7i5P6Mq2B KN96PJ76MM69zLCpa0Y4 xFD2M7MbUQIuekwryjxmyNR4MHPz MVVouY82Hp0yqKynFx5gMMAqPRM6 JIVhoTWaO2HsbY1wItGr ZLDpVZMrB1TdhEEpHQauM548LJmt VhD3LCSfwuAoH5QjCPYgvDwwUpS5 r5S9Vt8NEs21FO12GF58 oCAfy5R4aUO8G6GzFSZhgukltvde wZR9SXUhFARccY95Qy4cgHhdXd9b UEXvRUC0VBPxrKIfW1Wf yI9zTmJiSSFkGAGsY6XtmQJkJTss A078KNsaMqA1HONxarJbG3ZcYNOg wZxqCwR8j6P9Bu9TGYlw hdx2U0PoUmscbXU+IJ84VQQiST38 vZZnvRGvb6pywOz8MhQiJDAqQHJ6 vQxzLSstf9BuJHBmX23f bGFw (more content not included)... Normal [facility] Consent for Treatmenton 09-18 Consent for Treatment [id number] [facility] Consultation Noteon 10-16-19 23 Consultation Note Patient: DOLORES ESTRADA Age: 37 years Sex: Female : 1985 Associated Diagnoses: None Author: Otis Burch MD Subjective Chief complaint 10/16/2022 12:53 EST low back pain . 37-year-old female following up from radiofrequency ablation to the bilateral L4-5 and L5-S1 facet joints on 08/28/2022. She reports 50% ongoing relief. No apparent complications from the procedure. Her pain currently rates as a 2/10 on the visual analog scale. She is doing quite well. She has other questions about her neck. I do not have those records from her primary pain management office. Health Status Allergies: Allergic Reactions (All) Severity Not Documented Imitrex- Nausea. Latex- Rash. Nonallergic Reactions (All) Severity Not Documented SUMAtriptan- Aof. Current medications: (Selected) Prescriptions Prescribed Bentyl 10 mg Cap: 40 mg, Oral, QID, PRN Pain, # 45 cap(s), Refills(s) 4, Pharmacy: [facility], 155, cm, 03/01/22 15:01:00 EDT, Height/Length Dosing, 54, kg, 03/01/22 15:01:00 EDT, Weight Dosing Work Excuse: Work Excuse, Please excuse patient from work 08/28/22 and 08/29/22, Print Requisition, Compound Documented Medications Documented Lyrica 25 mg Cap: mg cap(s), Oral, TID, Refills(s) 0 Nurtec ODT: mg, Oral, Once, Refills(s) 0 Protonix: Oral, Daily, Refills(s) 0 Ventolin HFA 90 mcg/inh Aerosol: 2 puff(s), Inhalation, QID Wheezing, Refill(s) 0 propranolol: Refills(s) 0 topiramate 100 mg Tab: 100 mg = 1 tab(s), Oral, BID, Refills(s) 0, Migraine headache verapamil 120 mg Cap-ER: mg cap(s), Oral, Daily, Refills(s) 0 Problem list: All Problems Chronic idiopathic constipation / SNOMED CT 629247378 / Confirmed Colon polyps / SNOMED CT 584072544 / Confirmed Constipation / SNOMED CT 84958526 / Confirmed Dyssynergia / SNOMED CT 32517167 / Confirmed Heartburn / SNOMED CT 09165472 / Confirmed Left sided abdominal pain / SNOMED CT 651689814 / Confirmed S/P gastric bypass / SNOMED CT 3092385883 / Confirmed Objective Vital Signs 10/16/2022 12:53 EST Peripheral Pulse Rate 55 bpm LOW Respiratory Rate 18 br/min Systolic Blood Pressure 108 mmHg Diastolic Blood Pressure 80 mmHg Mean Arterial Pressure, Cuff 89 mmHg General: No acute distress. Alert and oriented x3. Well-nourished. Well-developed. Musculoskeletal: Injection sites healed. Neuro: Normal gait. Impression and Plan 37-year-old female history of lumbar spondylosis and degenerative disc disease following up for radiofrequency ablation to the L4-5 and L5-S1 facet joints. The patient is doing quite well. She has at least a 50% improvement of her pain as well as function. She is back doing her normal activities without much impediment. The patient is currently satisfied with the degree of relief she is experiencing. I educated the patient on her condition. I advised the patient to continue her home exercise program. I advised the patient to follow-up with us as needed and to call with any questions or concerns. Patient agrees with plan of care. [facility] Comment on above: Result Comment: Elec tronically Signed By: Marcin KOENIG, Otis Whitney\.br\Date and Time Signed: 10/16/22 13:18 EST HIPAA Forms Officeon 023 HIPAA Forms Office [id number]#1.00CD:127 [facility] Legal Correspondence Officeo n 10-16-2022 Legal Correspondence Office [id number]#1.00CD:127 [facility] Office/Clinic Note-Physician on 10-16-2022 Office/Clinic Note-Physician [id number]#1.00CD:127 [facility] Patient Correspondenceon Patient Correspondence [id number]#1.00CD:127 Normal [facility] Patient Correspondence [id number]#1.00CD:127 Normal [facility] Patient Correspondence [id number]#1.00CD:127 Normal [facility] Patient Correspondence [id number]#[id number]:127 Normal [facility] Patient Correspondence [id number]#[id number]:127 Normal [facility] Patient History Officeon Patient History Office [id number]#[id number]:127 [facility] Progress Note-Physicianon Progress Note-Physician Patient: NICA ESTRADA Age: 37 years Sex: Female : 1985 Associated Diagnoses: None Author: Umesh Gil Jr, DO Preoperative Information Anesthesia history: Patient history: denies difficulty with anesthesia. Family history: Denies any history of anesthesia complications.. Re-evaluation prior to induction: Initial evaluation reviewed: No significant change. Review of Systems Respiratory: NO RECENT CHANGES IN RESPIRATORY STATUS. Cardiovascular: STABLE, NO CHANGES IN CARDIAC STATUS. Neurologic: Per pain clinic assessment. Health Status Allergies: Allergic Reactions (Selected) Severity Not Documented Imitrex- Nausea. Latex- Rash. Nonallergic Reactions (Selected) Severity Not Documented SUMAtriptan- Aof. Current medications: (Selected) Prescriptions Prescribed Bentyl 10 mg Cap: 40 mg, Oral, QID, PRN Pain, # 45 cap(s), Refills(s) 4, Pharmacy: [facility], 155, cm, 03/01/22 15:01:00 EDT, Height/Length Dosing, 54, kg, 03/01/22 15:01:00 EDT, Weight Dosing Dulcolax 5 mg Tab-EC: 5 mg = 1 tab(s), Oral, Daily, # 50 tab(s), Refills(s) 1, Pharmacy: [facility], 155, cm, 01/25/21 14:00:00 EDT, Height/Length Dosing, 77.7, kg, 01/25/21 14:00:00 EDT, Weight Dosing Metamucil 525 mg oral capsule: 1,050 mg = 2 cap(s), Oral, Daily, Take 2 hour apart from the other medications with at least 8 ounces of water, # 160 cap(s), Refills(s) 1, Pharmacy: [facility], 155, cm, 04/06/20 13:01:00 EDT, Height/Length Measured, 107.2, kg, 04/06/20 1... Documented Medications Documented Lyrica 25 mg Cap: mg cap(s), Oral, TID, Refills(s) 0 MiraLax: gm, Oral, Daily, Refill(s) 0 Nurtec ODT: mg, Oral, Once, Refills(s) 0 Protonix: Oral, Daily, Refills(s) 0 Ventolin HFA 90 mcg/inh Aerosol: 2 puff(s), Inhalation, QID Wheezing, Refill(s) 0 propranolol: Refills(s) 0 tizanidine 4 mg oral capsule: 4 mg = 1 cap(s), Oral, TID, PRN Prophylaxis, Refills(s) 0 topiramate 100 mg Tab: 100 mg = 1 tab(s), Oral, BID, Refills(s) 0, Migraine headache verapamil 120 mg Cap-ER: mg cap(s), Oral, Daily, Refills(s) 0 Problem list: All Problems Chronic idiopathic constipation / SNOMED CT 857929996 / Confirmed Constipation / SNOMED CT 72007246 / Confirmed Heartburn / SNOMED CT 17446679 / Confirmed S/P gastric bypass / SNOMED CT 5062920357 / Confirmed Left sided abdominal pain / SNOMED CT 863561525 / Confirmed Dyssynergia / SNOMED CT 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 Colonoscopy (845861412) on 04/18/2020 at 35 Years. Caesarean section (51170577). Cholecystectomy (30539262). Social History Social & Psychosocial Habits Alcohol 04/27/2019 Risk Assessment: Denies Alcohol Use Substance Abuse 04/27/2019 Risk Assessment: Denies Substance Abuse Tobacco 04/27/2019 Risk Assessment: Denies Tobacco Use 03/01/2022 Tobacco Use: Never (less than 100 in l Smokeless tobacco use: Never . Physical Examination Pain assessment: PER PAIN CLINIC ASSESSMENT. General: Alert and oriented. Airway: Neck: Supple. HENT: Normocephalic. Respiratory: ADEQUATE AIR EXCHANGE. Cardiovascular: Adequate circulation and perfusion.. Gastrointestinal: Benign, nontender.. Integumentary: Warm, Mehama. Neurologic: PER PAIN CLINIC ASSESSMENT. Plan [place] [employer] (ASA) physical status classification: Class II. Anesthetic Preoperative Plan Anesthesia: Monitored anesthesia care. Anesthetic plan, risks, benefits, and alternatives discussed with the patient and/or family. Patient verbalized understanding. Informed consent was given. Communication: face to face with Pt educated on the importance of smoking cessation. [facility] Comment on above: Result Comment: Elec tronically Signed By: Umesh Gil Jr, DO\.br\Date and Time Signed: 09/04/22 07:54 EST Progress Note-Physician Patient: NICA ESTRADA Age: 37 years Sex: Female : 1985 Associated Diagnoses: None Author: Umesh Gil Jr, DO Postoperative Information Post Operative Note: Post Anesthesia Care Unit. Anesthetic utilized: Monitored anesthesia care. Health Status Allergies: Allergic Reactions (Selected) Severity Not Documented Imitrex- Nausea. Latex- Rash. Nonallergic Reactions (Selected) Severity Not Documented SUMAtriptan- Aof. Problem list: All Problems Chronic idiopathic constipation / SNOMED CT 784958542 / Confirmed Constipation / SNOMED CT 26384898 / Confirmed Heartburn / SNOMED CT 19598417 / Confirmed S/P gastric bypass / SNOMED CT 9599746809 / Confirmed Left sided abdominal pain / SNOMED CT 709475692 / Confirmed Dyssynergia / SNOMED CT 47162565 / Confirmed Colon polyps / SNOMED CT 694924811 / Confirmed Resolved: Change in bowel habit / SNOMED CT 276055896 Physical Examination Vital Signs 08/28/2022 8:52 EST Heart Rate Monitored 70 bpm SpO2 100 % 08/28/2022 8:52 EST Respiratory Rate 16 br/min 08/28/2022 8:52 EST Systolic Blood Pressure 121 mmHg Diastolic Blood Pressure 80 mmHg Mean Arterial Pressure, Monitered 93 mmHg 08/28/2022 8:46 EST Heart Rate Monitored 70 bpm SpO2 100 % 08/28/2022 8:46 EST Temperature Axillary 36.4 DegC 08/28/2022 8:46 EST Systolic Blood Pressure 104 mmHg Diastolic Blood Pressure 69 mmHg Mean Arterial Pressure, Monitered 80 mmHg 08/28/2022 8:46 EST Respiratory Rate 16 br/min 08/28/2022 7:18 EST Heart Rate Monitored 68 bpm SpO2 100 % 08/28/2022 7:17 EST Systolic Blood Pressure 113 mmHg Diastolic Blood Pressure 60 mmHg Mean Arterial Pressure, Monitered 78 mmHg 08/28/2022 7:17 EST Respiratory Rate 16 br/min 08/28/2022 7:17 EST Temperature Axillary 36.8 DegC HI Vital Signs (last 24 hrs) Last Charted Temp Axillary 36.4 DegC (AUG 28 08:46) SBP 121 mmHg (AUG 28 08:52) DBP 80 mmHg (AUG 28 08:52) SpO2 100 % (AUG 28 08:52) Documented vital signs Pain assessment: Pain Assessment 08/28/2022 8:52 EST Preliminary Pain Scale 5 08/28/2022 8:52 EST Primary Pain Location Back Patient Preferred Pain Tool Numeric rating 08/28/2022 7:17 EST Preliminary Pain Scale 5 . General: Alert and oriented, No acute distress. Respiratory: Lungs are clear to auscultation. Cardiovascular: Normal rate, Regular rhythm. Neurologic: Normal sensory. Review / Management Condition: Stable. Assessment Anesthetic outcome No anesthetic complications noted. Adequate pain relief. TOLERATING PO INTAKE. voiding w/o diff.. No Complaint of nausea and vomiting. Plan Transfer/ Discharge: Condition stable. Normal [facility] Comment on above: Result Comment: Elec tronically Signed By: Jeffery Heath DO, Umesh Cole\.dea\Date and Time Signed: 09/04/22 07:54 EST Coding Summary.on 08-29-2022 Coding Summary. CD:[id number] Gh0bWw+P GhlYWQ+VY0GNDXzM70dnLCfnZ0IU 9oWJL4NNWDBRXUIHZ3FGB7jzVQ0R YzxG6KcvnJh QaubdCOyLZ22OMc9IMX5rCztLTlw eD9hxGNwA4f9JyKdIS84qS98KDyv WXVmRxB4FdYuvrrvzGWg A1zwPsWhyOBbClq+PHRhYmxlIHdp XHFgHUkfPNUqIgAhsVwlCS2nNo0g ZGVyLWNvbGxhcHNlOiBj v0beASVnSRmvPY1roJfxT1HarKN8 IRPdi7h3Co01dZF+ZNRrIGU5gIgs CWrnj188UbOhi7qbJBR3 yQHrOBtkKCM7S50xt5E7OBHcODVv SJY9jSD5yX7bgMnrcyjeN0FkaTAb IhN5ARG7nCGidR4hdLae eaerzL8jOkk+U16TDT6QDJUYHI0H Ahp8J8OkEuazsFT+SD10EKToCS74 aLJixNAez4wqxEx7ToQb ZSBqDNW9rMrzHSbqh3KeIXJxG33b mTCzu6L6NTFccObawNDuJoTebIB1 fK8xVZohfjlru1mpoexl Lcgwj7ldwa40hJ93C22tLIekUWQx MGR6RJZiGZRetJzqxa0coW9aHa4+ PImaz1byz9lssPk0TpNs BIJbfwUbzJvsUWX3a7OlYc45R8Jf mSftq6EaPxl1fg64vGRcf1Z8lXX0 DOmuALZonE3bIStaMgO8 TBGpRzInvG39wNDuXOovJm5hpDxq uJmoCC7uUGZnolnbYUZxkO4pQPSw cDXyhZbnWH6eAZOyrlmb s513IjJnIJK8MEHycGZmP8RetN5a GcEzCJZsVELaC0FwgKJwOAuwN879 EUxaVwC1IBVujxAdL5Yp DDAobQezIeZ3n3L7Lr4Is2Vascrm IOO3NCpyKMVpRnE0YtDzGdX4N9Vu Osp8OBTmmXocNK5bR0Ez JLHxztstaawjuOJ6JOMmBDMnvE32 nFUpIHzdEo7xy7W3g291PPAnPMUb gH65My1vfIzqJXWhhPBI cA6pnkoxm1eerfouQvUsJUCqGBm5 SEe6FHTbmUlbBfBeEBN2ZnJ2LEO6 kIVsbM5jlDtewrbtxT3e Oyc+B00jzH0mOJK8MNV2mqtcGVUt nvLhTY23ME45Z0EoXyuzoTHhnHF+ CZXyinTvdTjhGA1cDxVr p0nxg6OmPVceD3DgWCQyNJelBpe0 BUSjMKI9xOS5tN0yZRDiCGieq9V3 zHO2A8GyfrKlfy5qh1dq WFAsLVoxR14irUWil9V3NWAalDU8 CZZcvDjwIwMyaK11Dud+PGNvbGdy n9MqXvvkt5cal4cejQc1 NaMvFRZavnWhzUboQBN0p8BrGa25 I62qIOjrUQHdCBWhBFNgOENowJxn ys1njH1nRs6+PGNvbCB3 wDN8fY3uYFAiPjR2NXxcM791BdPi zBYyZkwlp3mgj0jyfDw1ToNiCTUm hxKsyJotWFJ1j7IdVb52 C84kOQonJNHsARAzJUEjEHNigTxg kw1kdD8uGc0+TO9iw6bioz06qM15 dHI+RBAgBZH6gLsqUBca GDZnnZ2zHQrvDwL1UZRgVuAakV43 mBUoOWcwYt2wdDrgwVsoFQ1lJTJw wsgaf622XiUjl8nsICPh aOGuXNqeMGG6X14nr7R4ZCJbGJKf ISJ1jOX5eR2qgXnnryfelUDrxKop kiDagQlaBPjkKVpyN413 IHRvcDsnPlBhdGllbnQgTmFtZTo8 W7QtBpn4XYTnzIpvNH8oiFZtVMgo Rh9rlBzvfBatQN3vNRGc wnjph626CrPwg5blYJZaaKAzFPgr KGO1C60vf8L7APIsIHZlGMI4xVP5 yQ1tvOynpedtaJIycHix bbKzpGodKCttKOnvC734OIUjiCrk VwXrhvSvISJosLU3PY29SC15mOPg u1K4lBW3F1ClRBCzwgqw cdrmaKS0OHRcONNxcM36Ec5fcUdo Ms2uNSSrORN1RNPkvBYoH7AqgK6r IlYoKKCpHOGzC8LebCHr AHidM467QPukOyV1DOCoxwGnP7Al CZQjzAutGmA7u4Y2Oi2WA2O0ZJ44 GH02uWPdf9W0tSD0X2Fi CBCpzuukfgzoaHX4VJSxOICfeN12 Rh1boMhiCq9pMKKtTZV0XYXvfDHt S3GtoY5vBhZbOECtSLGu Q1VdrSMaEYatQ061ROcaDqW0JVQg gbInC2ZuRKGaxEsdNcD2o4X3Sy1C BXu7FF57IV30oDTli5I3 dKT5W0DeMFKsposcpsuwcSK3PTSc SBScdX98Am8uhQdkLm6sJYJoWOW6 BAAxxFXxO9MgfP3hEdAy OTZpORYpZ4EgzKHsPFseN221CBmk YlL0FPAtabPgF2YzENNjpRatNkC0 g0E8Pn1VMSScOJ75CWE1 eCU2VQ08JJ88O5RtDzyfyTBjfYB+ PHRhYmxlIHdpZHRoPScxMDAlJyBz gHyiUF2qGo0lYUPaJAKv oXbdqIUnIlIzh6cgORCkDPzzZW1u dKtzP2KxqBH2YPWxs1g9Wz17I67n Q6CmgZO+XXFciLE6yTK7 xZ1nQiHoVmV9OWjoB323KxDfdEUe Yvxgl7say6kyuTx2HsQ4RQZzquRb sJxqNBK7t5CgHa41Z93x JSabEWCdHMVhYEGgKMBpjOmuiu6a fF1pPa7+CPFbrIH5rFL1qW5bChTg GfT4JNnaY296DjTloONt Qmkua7aym9boqAk2JiGbYIWitvFl iKenVNP3g5ExWb36Y7VubDzcn8Ve Gmf5nv21pWIrt8K3aBK4 X6DhQCGsnaqthZQuuDzuWE9yQZQt vketGYEivQ2qMNJtF1m1XlUgMrX4 ADxnD1GffxO9SLMusIYq BKwxLSS2X09jm4S1EXAiOYLuIAA8 rVD9bX7mzZtsglfljBTuvVwblzGa fCfgQOkoGDbeZ757UHBw fOnoUYKxkL6vCJXmnPAcwAczVA0g PLWlvzpkDyTHN4VQAALVVQqIAXus dGQ+DPUxLNZ5cXodIDsu GSArfG6zVMElX5x1JqEaGvM2IYor H0YjTXFkmoyaPv34dZ1bTlViXyU6 BXchG4EqkgV2LPSjbQMa ORaoITR5D60jp1I3BMUbQUNuWXM1 yFN4gM9afRhxqsdbaQHmnEqnsuUy tAloAZfaCXhqN832AZVz oAagFpW5TiL7KnI5WMM5O7KeRrg5 PEYqaAxyFJ0yrUEqUMmjWj8lcRyi vOzhJW1sDRIwmrynEKOh eW5vGEQnfWXweGflGO1gBOSpajqg o439BdZqVRL9CGXfuEStW9TfqY0b UsFyRKLsRCZnH0ZtdVQs VRvtF515FFzeXzN2RXZxovYgB4Fv GDTroGvpEfJ6h6G4Bo8uMAECBQGw czwvdGQ+BXSbIPF6aLzh XUnpAIRswR2wITIgW4e9JtKcAuG7 DMjbU8BfDIWzoxovKu34mE7eVtXs YyF4PWajB2KukfF4YSUi mJZuDQebVML3W57qg5C8YTVoVDMj SCM2wEB4aX9puFwbfyyadFWeaNdq xtVewCfkRJpnUApoY241 IHRvcDsnPkZlbWFsZTwvdGQ+PHRk PHQ9dFbaNMgjBDBokF4fVLUeZ7v6 KvChJmR6DSjiA6KyJRCk erkzHg92bR2rQmOoFjE7SOglT6Oe olM7MNDbkIUmMIqkVZJ9T58nw6V3 VUEjTHRsNHE2gXV0sP2a bGlnbjogbGVmdDsgdmVydGljYWwt GCocR797XSFfhPzrSxPrjJ3gUMBi YWdlbWVudDwvdGQ+PC90 xl42Q8JgGyxkUdk1GDBsGOH6gLB6 uT2iVXJiFWyyc5A1lXY1O1VvwiHf il1qq3kqTPEuIJvjB16b eICxi9U8IPVzaJO6BOOpbNfxGeMz xG57Ipi+LDFbfOege1KiHpqcl7pc g8gxsEf6NqUoDSRsmdGw pFdxFLP7l2LfSv47X24eTMwjZXSl IERxVMTfAMYhjQhnsn5okM1jLc5+ VDTwuME1pTO5rQ2gJzEr FgZ3ZTjqW490ZlFdoTRyYdcoi6kj g8kglHx3WdQgDQGyazNhcVdiGVQ0 a7NjKd61O0PxoWwcc7Ns Edy0us02bRCaz3T3uVD7X3YiPHVt dqdwkSCbvRmlOR1jQXNjtmhiSHMo jR9mXSXvO4o5MpGcTxR2 TDtoR7JjqrC5SHXhkUTlOBZtfBYW tY6kokvza2kwbojrHgQmRUMoYSq6 ZWi9LLPfmPvhEvQxSDW7 EjT4APY0jFWejH9cnJnilkleoF3c Oyc+IKc1w7uhbSVhUK1dbOL6VJ22 WF39cGBiv2Y1jXO2G3Zy GCYtxasavownpBF9DPJyANMbgW22 Tf4beFiaLw4kVARaOBI6AANvdMMy X4CezU3hMrUzDVOzOWGg Y0BbiUHnNTnjH145KUszXpC8NRTq vgBbF7DyQRRuxVgzIjW2p3Z2Xh9N DJ40YM04KQ75eUPbg5S0 nZE3B1AcUDWpbyoynosmxFT8KCQm QLUraI86Ma5ypGdtAv7gVWMyYHI6 ONIyfMKgB1YmvJ0aHsIy XTHeKQHwX3PemKCfOMmfE785NPzw RnR8VMDvvbVsY8JuVQVzgYmxEqG8 f2M2Sg7ZBe94RV67ZP42 kDYhk4N0hXN9D4WbPGDaqsvqrpyr lFW9KEGdBLIsfY14Hq6xdLxeEy2i DIZcZMR2AYOkjSRzO9Hm eO4bAzYcAFCaZYHfJ2FxtVLkWSym W596AMaaBeX8VPAgzpTuO6UyZNEr yAgnXxB4x5V5Kr7VMWtm ker1D8MlMjswgLO+FW91YLCwIJ27 hCEhbTDrr3ywqRg2PbHaILSgYVC1 kTbiXXvma3YhKIXaU88l bGFw (more content not included)... [facility] Consent for Anesthesiaon Consent for Anesthesia [id number]#1.00CD:127 [facility] Consent for Procedure/Surger yon 08-28-2022 Consent for Procedure/Surgery [id number]#1.00CD:127 [facility] Consent for Treatmenton 08-16 Consent for Treatment [id number]#1.00CD:127 [facility] Discharge Instructionson Discharge Instructions [id number]#1.00CD:127 [facility] IntraOperative Documentson 10-29-2021 IntraOperative Documents [id number]#[id number]:127 [facility] Main OR Intraoperative Recor don 08-28-2022 Main OR Intraoperative Record IntraOp Document Type FTPM Summary Primary Physician: Otis Burch MD Finalized Date/Time: 08/28/22 08:46:07 Pt. Name: NICA ESTRADA/Sex: 1985 Female Med Rec #: [id number] Physician: Otis Burch MD Financial #: [id number] Pt. Type: P Room/Bed: / Admit/Disch: 08/28/22 06:58:20 - Institution: Case Times FTPM Entry 1 Patient Times In Room 08/28/22 08:24:00 Out Room 08/28/22 08:44:00 Procedure Times Start 08/28/22 08:27:00 Stop 08/28/22 08:42:00 Anesthesia Times Start 08/28/22 08:24:00 Stop 08/28/22 08:44:00 Last Modified By: Denisa Le RN 08/28/22 08:44:59 Case Attendance FTPM Entry 1 Entry 2 Entry 3 Case Attendee Argentina Bonner MD, Otis Powell RT(R), Lydia Role Performed Anesthesiologist Surgeon - Primary Terrazzo Worker Thread Singer Time In 08/28/22 08:24:00 08/28/22 08:24:00 08/28/22 08:24:00 Time Out 08/28/22 08:44:00 08/28/22 08:44:00 08/28/22 08:44:00 Procedure LUMBAR RADIO FREQUENCY LUMBAR RADIO FREQUENCY LUMBAR RADIO FREQUENCY ABLATION(Bilateral) ABLATION(Bilateral) ABLATION(Bilateral) Comments Last Modified By: Denisa Le RN 08/28/22 Denisa Le RN 08/28/22 Denisa Le RN 08/28/22 08:45:00 08:45:00 08:45:00 Entry 4 Entry 5 Case Attendee Mclaughlin Juanita LACEY RN, Janet Role Performed Scrub - Primary Medical Staff Manager - Primary Time In 08/28/22 08:24:00 08/28/22 08:24:00 Time Out 08/28/22 08:44:00 08/28/22 08:44:00 Procedure LUMBAR RADIO FREQUENCY LUMBAR RADIO FREQUENCY ABLATION(Bilateral) ABLATION(Bilateral) Comments Last Modified By: Denisa Le RN 08/28/22 Denisa Le RN 08/28/22 08:45:00 08:45:00 Perioperative Protocols FTPM Pre-Care Text: Implements protective measures prior to operative or invasive procedure, confirms identity before the operative or invasive procedure, verifies operative procedure, surgical site, and laterality Entry 1 Procedure(s) LUMBAR RADIO FREQUENCY Patient Identity Birthday, ID Band ABLATION(Bilateral) Verified (select at Check, Patient least 2): Participation Consents / H and P Anesthesia Consent, Operative Site Present Verified HandP, Surgery/Procedure Marking Verified Consent Surgical Site Yes Laterality Verified Yes Verified Procedure Verified Yes Correct Patient Yes Position Verified Availability Equipment, Medication, Time Out Denisa Le RN, Mcluaghlin Verified (If X-ray Participants DEEPTHI, Juanita C, MarcinOtis Griffiths MD, Argentina Bonner Christman RT(R), Lydia Time Out Complete 08/28/22 08:25:00 Outcomes Met? Yes Last Modified By: Denisa Le RN 08/28/22 08:45:40 Post-Care Text: The patient is free from signs and symptoms of injury caused by extraneous objects Allergy Information FTPM Pre-Care Text: Verifies allergies Entry 1 Allergies Reviewed? Yes Allergies Reviewed Self/Patient With Outcomes Met? Yes Last Modified By: Denisa Le RN 08/28/22 07:09:42 Post-Care Text: The patient received appropriate medication(s) safely administered during the perioperative period Surgical Procedures FTPM Entry 1 Procedure Description Procedure LUMBAR RADIO FREQUENCY Modifiers Bilateral ABLATION Surgeon Description L4/5, L5/S1 RFA Primary Procedure Yes Primary Surgeon Otis Burch MD Start 08/28/22 08:27:00 Stop 08/28/22 08:42:00 Anesthesia Type MAC Surgical Service Pain Management Wound Class 1 - Clean Last Modified By: Denisa Le RN 08/28/22 08:45:02 General Case Data FTPM Pre-Care Text: Classifies surgical wound, implements aseptic technique, initiates traffic control Entry 1 Case Information OR Pain Proc Room Case Level Level 2 Wound Class 1 - Clean Specialty Pain Management ASA Class 2 Preop Diagnosis M47.816 Postop Same As Preop Yes Postop Diagnosis M47.816 Outcomes Met? Yes Last Modified By: Denisa Le RN 08/28/22 08:45:03 Post-Care Text: The patient is free from signs and symptoms of infection Skin Assessment (Pre Procedure) FTPM Pre-Care Text: Implements protective measures to prevent skin/ tissue injury due to thermal or mechanical sources Evaluates for signs and symptoms of physical injury to skin and tissue Entry 1 Skin Integrity Intact, Mehama, Warm, and Skin Abnormality No Dry Outcomes Met? Yes Last Modified By: Denisa Le RN 08/28/22 07:10:03 Post-Care Text: The patient is free from signs and symptoms of injury caused by extraneous objects Patient Positioning FTPM Pre-Care Text: Identifies physical alterations that require additional precautions for procedure-specific positioning, verifies presence of prosthetics or corrective devices, positions the patient, evaluates the patient for signs and symptoms of injury as a result of positioning Entry 1 Procedure LUMBAR RADIO FREQUENCY Body Position Prone ABLATION(Bilateral) Feet Uncrossed? Yes Left Arm Position Resting at Side Right Arm Position Resting at Side Left Leg Position Extended Right Leg (more content not included)... Normal [facility] Main OR Preoperative Recordo n 08-28-2022 Main OR Preoperative Record Holding Area Document Type FTPM Summary Primary Physician: Otis Burch MD Finalized Date/Time: 08/28/22 07:18:56 Pt. Name: ANDINICA/Sex: 1985 Female Med Rec #: [id number] Physician: Otis Burch MD Financial #: [id number] Pt. Type: P Room/Bed: / Admit/Disch: 08/28/22 06:58:20 - Institution: Case Times Holding FTPM Pre-Care Text: Verifies consent for planned procedure, identifies individual values and wishes concerning care, includes family members in perioperative teaching Secures patient's records' belongings, and valuables, maintains patient's dignity and privacy, and maintains patient confidentiality Entry 1 In Holding 08/28/22 07:17:00 Outcomes Met? Yes Last Modified By: Le Vasques RN 08/28/22 07:17:07 Post-Care Text: The patient participates in decisions affecting his or her perioperative plan of care The patient's right to privacy is maintained Surgery Checklist FTPM Entry 1 Patient Birthday, ID Band Procedure History and Physical, Identification: Check, Patient Verification: Surgical Consent, With Participation Patient NPO after Midnight: Yes Date/Time: 08/28/22 07:17:00 Results Reviewed N/A Personal Items: Jewelry Comments: Personal Items Pt. wearing a pair of Complaints of Pain: Yes Comment: earrings. Pain Comment: 510 lower back pain Operative Site Yes Marking: Marked By: Dr. Burch Location: bilateral L4-S1 Availability Equipment, X-Ray Verified: Does Patient Smoke No Patient states Yes Comment - Adult -Domenic postop adult Supervision supervision available Case Cancelled in No Holding Area see comments below for reason Last Modified By: Le Vasques RN 08/28/22 07:18:52 Finalized By: Le Vasques RN Document Signatures Signed By: Le Vasques RN 08/28/22 07:18 Le Vasques RN 08/28/22 07:18 Normal [facility] Operative Reporton Operative Report Patient: DOLORES ESTRADA Age: 37 years Sex: Female : 1985 Associated Diagnoses: None Author: Otis Burch MD Procedure Procedure: Lumbar Facet Medial Branch Radiofrequency Ablation to the Bilateral L4/5 and L5/S1 Facet Joints with Fluoroscopic Guidance Diagnosis: Lumbar Spondylosis without myelopathy Anesthesia: MAC MAC anesthesia is medically necessary for the procedure due to the procedure requiring the patient to remain in a painful position. Patient was responsive throughout the procedure. The increased risk of the procedure with use of sedation was discussed with the patient. The patient wished to proceed. The patient was identified in the pre-op area. The procedure, including risks benefits and alternatives was discussed with the patient. The patient agreed to proceed. Informed consent was obtained and the site(s) marked. The patient was brought to the procedure room and placed in the prone position with padding under the abdomen to reduce lumbar lordosis. Time out was performed. The back was prepped and draped in sterile fashion with Chloraprep. Skin and subcutaneous tissues were anesthetized with 6 mL of Lidocaine 2% through a 25G needle. 20G RFA 10mm active tip needles were then advanced under fluoroscopic guidance to the locations of the medial branch nerves/dorsal ramus nerves to the L4/5 and L5/S1 facet joints on the right. Impedances were within normal parameters. Motor stimulation at 2mA at each level was negative for any lower extremity stimulation. Impedances were within normal parameters. 6mL of 2% lidocaine and 10mg PF dexamethasone were then injected through the needles in equally divided doses. Radiofrequency ablation then took place at 80 degrees Celsius for 80 seconds x2. The needles were removed and the procedure was repeated on the left side with the identical technique and medications. Wins[place] were removed and bandages applied. The patient was brought to the recovery area in stable condition and then monitored for an appropriate period of time. The patient was discharged home in good condition with post-procedure instructions. No apparent complications. Epidural injection procedure Physical Exam: vital signs Vital Signs 08/28/2022 7:18 EST Heart Rate Monitored 68 bpm SpO2 100 % 08/28/2022 7:17 EST Systolic Blood Pressure 113 mmHg Diastolic Blood Pressure 60 mmHg Mean Arterial Pressure, Monitered 78 mmHg 08/28/2022 7:17 EST Respiratory Rate 16 br/min 08/28/2022 7:17 EST Temperature Axillary 36.8 DegC HI . Normal [facility] Comment on above: Result Comment: Elec tronically Signed By: Marcin KOENIG, Otis Whitney\.br\Date and Time Signed: 08/28/22 08:46 EST Outside Records Officeon Outside Records Office [id number]:[id number] Normal [facility] PREG HCG QUALon 04-20-2022 , QUAL Negative Normal NEGATIVE [facility] Comment on above: Performed By: #### P REG #### [facility] [address] [place] [address] Dr. Refugio Apple CNOVon 04-12-2022 CNOV Office Visit (PLASMN ) NICA ESTRADA ([id number]) 1985 F Date Time Provider Department 04/12/22 2:15 PM LAZARA WOODS During your visit today, we recorded the following information about you: Temperature Pulse Blood pressure Weight 98.9 degrees 65/minute 140/92 55.5 kg Height 1.524 m Lazara Woods MD 04/12/2022 4:01 PM Signed Plastic Surgery Note CC: Consult for Panniculectomy HPI: Nica is a 37 year old female here today to discuss excess abdominal skin and fat after massive weight loss. Patient is s/p Trevor-en-Y gastric bypass on 10/24/2020 Patient is not happy with the amount of hanging skin she has and would like to discuss removal. Date of bariatric surgery (more than 18 months): 10/26/2020 Highest weight: 267 Current weight: 122 Weight loss of 100 lbs or more: Yes, 145lbs Patients weight has been stable for 6 months. The patient does complain of recurrent rashes, intertrigo with dermatitis occuring on the opposed surface of the skin that has not responded to conventional treatment for a period of 3 months. Treatments tried: Cream: Nystatin and Powder: Nystatin and OTC The patient does not have a history of infection. Panniculus causes interference with activities of daily living: Yes, at work the extra skin will get pinched in boxes and caught by her dogs at home. Unable to find a bra that fits. Self esteem has improved since bypass, but still does not like to look at herself in the mirror when her skin is exposed. Trouble with clothes fitting properly: Yes, nothing fits properly History of abdominal hernia Yes, Laparoscopic repair of hiatal hernia. History of abdominal surgery: 2 casserian sections, cholecystectomy, and gastric bypass REVIEW OF SYSTEMS All negative except for: GENERAL: []weight loss []malaise []fevers HEENT: []frequent or significant headaches []changes in hearing []change in vision []nose bleeds []other nasal problems NECK: []lumps []goiter []pain and significant neck swelling RESPIRATORY: []cough []hemoptysis []wheezing []COPD []dyspnea []shortness of breath CARDIOVASCULAR: []chest pain []leg swelling []hypertension []CHF []palpitations GI: []nausea []vomiting []diarrhea MUSCULOSKELETAL: [] joint pain or swelling [] back pain []muscle pain SKIN: [] skin lesions []rash []itching PSYCH: []sleep disturbance []mood disorder []recent psychosocial stressors HEMATOLOGY/LYMPHOLOGY: []prolonged bleeding []bruising easily []swollen nodes ENDOCRINE: []cold intolerance []heat intolerance []polyuria []polydipsia []goiter [] Diabetes History of DVT/PE: No History of Recurrent Miscarriages: No Objective: BP 140/92 Pulse 65 Temp 37.2 ?C (98.9 ?F) Ht 152.4 cm (5') Wt 55.5 kg (122 lb 6.4 oz) LMP 01/09/2021 (Approximate) BMI 23.90 kg/m? PAST MEDICAL HISTORY Diagnosis Date - Anxiety - Asthma uses inhaler a few times a month - Depression Currently not treated - Fibromyalgia Zanaflex - Gastroesophageal reflux disease without esophagitis - GERD (gastroesophageal reflux disease) - Hyperlipemia - Hypertension - Iron deficiency anemia - Migraine - MELISA (obstructive sleep apnea) PAST SURGICAL HISTORY Procedure Laterality Date - >=3 x 2 - CHOLECYSTECTOMY 2007 - PAST SURGICAL HISTORY OF tendon surgery Current Outpatient Medications Medication Sig Dispense Refill - baclofen (LIORESAL) 10 mg tablet Take 10 mg by mouth as directed. - fexofenadine (RODY ALLERGY) 180 mg tablet Take 180 mg by mouth once daily. - biotin 5,000 mcg ODT Take by mouth. - cyanocobalamin (VITAMIN B-12) 1,000 mcg tab Take 1,000 mcg by mouth once daily. - Lactobacillus acidophilus (PROBIOTIC ORAL) Take by mouth. - multivit-min/iron/folic acid/K (BARIATRIC MULTIVITAMINS ORAL) Take by mouth. - clotrimazole (ALEVAZOL TOPICAL) Apply to affected area. - dicyclomine HCl (BENTYL ORAL) Take by mouth. - alprazolam (XANAX ORAL) Take by mouth. - propranolol ER (INDERAL LA) 120 mg 24 hr capsule Take 120 mg by mouth once daily. - verapamil SR (CALAN SR, ISOPTIN SR) 120 mg CR tablet Take 1 tablet by mouth once daily. - NURTEC ODT 75 mg disintegrating tablet Take 1 tablet by mouth PRN(NO DISPENSE) for Migraine Headache (see administration instructions). - nystatin (MYCOSTATIN) powder Apply to affected skin up to 4 times per day 60 g 2 - cetirizine (ZYRTEC) 10 mg tablet Take 10 mg by mouth once daily. - topiramate (TOPAMAX) 50 mg tablet Take 50 mg by mouth twice daily. - FLUoxetine (PROZAC) 10 mg capsule Take 10 mg by mouth once daily. - ondansetron orally disintegrating (ZOFRAN ODT) 4 mg disintegrating tablet Take 1 tablet by mouth every 8 hours as needed for Nausea/Vomiting. 30 tablet 1 - pantoprazole DR (PROTONIX) 40 mg tablet Take 40 mg by mouth once daily. - gabapentin (NEURONTIN) 100 mg capsule Take 1 capsule by mouth three times d (more content not included)... Normal [facility] PREG HCG QUALon 04-06-2022 , QUAL Negative Normal NEGATIVE [facility] Comment on above: Performed By: #### P REG #### [facility] [address] [place], [place] [address] Dr. Refugio Apple Copper Lvlon 03-09-2022 Copper [Mass/Vol] 89 microgram/dL Invalid Interpretation Code 80-158 [facility] Comment on above: Result Comment: This test was developed and its performance characteristics determined by [facility]. It has not been cleared or approved by the Food and Drug Administration. Detection Limit = 5 Performed at: [address] [id number] MD Adan Singleton Performed By: #### 2 [id number], [id number], [id number], [id number], 9204787, 9534195, 14554557, 84875242, [id number], 0001171, 53689396, [id number] ####[facility] [id number] [place] [address] Vit Aon 03-09-2022 Retinol [Mass/Vol] 42.2 microgram/dL Invalid Interpretation Code 18.9-57.3 [facility] Comment on above: Result Comment: Refe rence intervals for vitamin A determined from [facility] internal studies. Individuals with vitamin A less than 20 ug/dL are considered vitamin A deficient and those with serum concentrations less than 10 ug/dL are considered severely deficient. This test was developed and its performance characteristics determined by [facility]. It has not been cleared or approved by the Food and Drug Administration. Performed at: [address] [id number] MD Adan Singleton Performed By: #### 2 [id number], [id number], [id number], [id number], 7440652, 9925630, 13966013, 66922685, 89113421, 7454572, 44289552, 73892502 ####[facility] [address] [place] [address] Vit B1on 03-09-2022 Thiamine (Bld) [Moles/Vol] 146.8 nmol/L Invalid Interpretation Code 66.5-200.0 [facility] Comment on above: Result Comment: This test was developed and its performance characteristics determined by [facility]. It has not been cleared or approved by the Food and Drug Administration. Performed at: [address] [id number] MD Adan Singleton Performed By: #### 2 688781, 3345880, 84629024, [id number], 0593131, 1165328, 38119511, 51257429, 96615536, 3524774, 10801030, [id number] ####[facility] [address] [place] [address] Vit David 03-09-2022 Alpha tocopherol [Mass/Vol] 9.9 mg/L Invalid Interpretation Code 5.9-19.4 [facility] Comment on above: Result Comment: This test was developed and its performance characteristics determined by [facility]. It has not been cleared or approved by the Food and Drug Administration. Performed By: #### 2 054971, 4247970, [id number], [id number], 8747976, 6944489, 60027915, 43026356, 44793283, 7794297, 12295063, 89144924 ####[facility] [address] [place] [address] Gamma tocopherol [Mass/Vol] 0.8 mg/L Invalid Interpretation Code 0.7-4.9 [facility] Comment on above: Result Comment: This test was developed and its performance characteristics determined by [facility]. It has not been cleared or approved by the Food and Drug Administration. Reference intervals for alpha and gamma-tocopherol determined from National Health and Nutrition Examination Survey, 2698-4045. Individuals with alpha-tocopherol levels less than 5.0 mg/L are considered vitamin E deficient. Performed at: [facility] [id number] MD Adan Singleton Performed By: #### 2 975469, 6144296, 30511134, [id number], 9168299, 8998239, 52661327, 77721913, 63719415, 4370361, 69365853, 84190372 ####[facility] [place] [address] Vitamin B6on 03-09-2022 Pyridoxine [Mass/Vol] 33.4 microgram/L Invalid Interpretation Code 3.4-65.2 [facility] Comment on above: Result Comment: This test was developed and its performance characteristics determined by [facility]. It has not been cleared or approved by the Food and Drug Administration. Deficiency: <3.4 Marginal: 3.4 - 5.1 Adequate: >5.1 Performed at: [address] [id number] MD Adan Singleton Performed By: #### 2 513162, 0202383, 68073610, 290361657, 8408048, 2854385, 73892507, 24755422, 54709184, 8738323, 52528140, 96267560 ####[facility] [address] [place] [address] Zinc Lvlon 03-09-2022 Zinc [Mass/Vol] 89 microgram/dL Invalid Interpretation Code 44-115 [facility] Comment on above: Result Comment: This test was developed and its performance characteristics determined by [facility]. It has not been cleared or approved by the Food and Drug Administration. Detection Limit = 5 Performed at: [address] [id number] MD Adan Singleton Performed By: #### 2 809724, 2711205, 12188436, [id number], 5523243, 5584735, 07535888, 06395366, 73182415, 0770828, 40032274, 20220572 ####[facility] [address] [place] [address] Coding Summary.on 03-08-2022 Coding Summary. [id number] Gh0bWw+P GhlYWQ+EJ9ILWGqD79wvDMbtV6NE 4tYYD6IKYOBTUMDBM8SBC5ogPQ5U HsaM1ZwvqXo StvatOJmGW38JNl8PCB2vWtrQYvu vT3ijVUuB0w3LvZwFN39fR25IQld CKUpMqE5QuWfahbsjXTr O4snIlWnpFDdKwo+PHRhYmxlIHdp OTXsUWyiVWYwIgUhdDktAC6oJt6q ZGVyLWNvbGxhcHNlOiBj v3xsTJOuJArfJX3hvZzuZ8KgbCG7 JSJkf5y5An67nQZ+BGKnCFS2eIue QMdrr599BvZdu0bfZSQ0 dHOyBYzkOET7S38ss4Y7TCBmWSYj SAK2aWW1jL7tiOxefauuT6UkpJPv JwJ4SBS1lVPwgR2bdNsx hwgbmW2rKms+R68CWX6FWVEPYV4B Unp9X7MuDnjnkQL+FQ69QAWfMI85 nHPfeDZtg8pfjTk9OjEu KSYzDEO6hXckISlof7XnEHDiR16t yRCqt0M5QWOyyEntrDXqDjJusAC6 qF4lSKqmpmskg1whsuac Gzoji1ysjg82nU43L95qIQfuQCMe KKP7GAThAATkqNixbm7wlT9pHs7+ RSzdq9zjk9ivpLk1GyCl PACupjLxbScjADM9p4IuIg10P2Bm hRdvy0UwUgc4dy54eVUhv1L1rLX8 CTuaXZBdgT2sPRggFyU2 BJIeVnHixV51cYTdXPppUt3hxHyz oVzwUU3bODYikmgdGWVijU9oZZOb aCNtkRevYJ0dWKGoulnb x823AgIeDPU7PPQxfTOpE2DdvR3k MrIcLQFtEPNqK0GoyDPxRGriX730 TGzmHdD9TFDdfgPwH1Yx TPItaFkzNfB8e1H4Tw1Vj3Spqvtt HPO0DQxfMYB1LqQpDjWkKzF0O5Oq Isa2SAPuvTexZQ0bY1Nu HFTaiavgcbbtzWO3USSzHTXioR16 gFNvOSqdJj5xh0W3j199NQNrYQXn yH46Hg4gzBnhJWPwuAYW bQ5fpgiym2agtzkyHaWfQVCzKPx7 UOj0JUUryOziPsByQGD9KdZ3ZYW7 zYMvvS1jrVxgxhtqbE9p Oyc+B22ufS4aAKJ5DDI9lmvySFEo coKiBL85JH53Y5OjLrldkRUctTM+ RVTrunDjfVjcDZ1zGgHa l5wbj3TjOWtrZ2KbJBTmMTsjFxk0 NTPfRNT2mAQ7bS0wTQSmXDuhg6X9 rWB8H8MialHocd6zh6wi WUNoXCcbR98hnRBxf0D7AJGgwHZ5 LDPqsVhmTfMvkM26Hfm+PGNvbGdy j1LoCrqng3ptb7qjhDk1 XcKoJGZoymCwxLwmHQO0z3DsPb14 A71bRNruHBYbGTAlXCWlLMUqqNsm vm8iwZ9eLx7+PGNvbCB3 dTN3gT8uHDItJzG0RFshJ805HjWr bDUjYhmjb1nzj8gzbLd0UhWxNDQz mfOwzTigCSJ0a0WwEk78 R00aNGmsAVEkNMCyDFNpZHQxiRvx iv7sxY2bTz5+CD6bi4tkzu63qW71 dHI+SGFiKHR6pLhhWRzw MBPcsM7zIQwaPdL8IROlStMvvF95 wYGhTRzhNg0fwFcmoYmlHS4hSAHo kagdp498RqKdy8pnIWLe pMUqRSqeTLV0H93jq0E3SVLtIZWm ATS1oXM1jO8nyJrkuttvuWBxeDdt tlCrmMwjHFydAJmeD290 IHRvcDsnPlBhdGllbnQgTmFtZTo8 D6JuUyi7GAAtvVvwOF0dsLNlUQww By1sxPtgyXukED8nWSGm bvmka559TsMnp8woDEBgqPAcWTty VPH5M89qi2V5LSRgRWVuNLP3lXX6 wS3rtWlmwrfcwZXfgMbc vbIftOyyPWtrLVjuW023CQJweKra SkLsvlLePSFkmAC7EX15CH19qXNe j1O6pXS7A1IoPCJfoqxs ardjvRG3ZVIcJLTsuA33Dt6liLlk Zz1oRTGuUXE2RAOopVOvO9VfyK5i InKgOPXvAMIaN0JivGOh CYhiI875DDonKfM9ISFiwrGsS1Dc PBGhaLcvXxM5z6W9Xn4XI2Z1XC14 XL28sHVpf0U1iIE1X2Bc NQUhhtzstcpqlDK2KMDhJHBakB01 Di8szRgiBc4dRNZtMXP7YCDrwTPk K7DxyY6xQsXqVXWlXKRh Q1RtnKUyROomD649KRljAfU8VFCb ugEoS8RqNVOlrOjoTcT8r6L7Az7G MYz4BI97WV66aGFtv0Y3 fNY9I0JdIRSkxtigymshuAN3MXEl FUKihI45Sl1kcEwkLi2oUVGqVLS9 TEJkbLNiQ8SfoQ6tHcRg QEGdFLCmP2PksLJyCVafZ680DMzz GgD8CTDmpuGwE8EfNSBncLubMnK9 m7U5Yl0NQHNrWC44SND6 pXJ5HZ71KK09R6NdDoliqSDheRV+ PHRhYmxlIHdpZHRoPScxMDAlJyBz eHioRV6uEw7nROBlNNSq rTjzhBHmIcIpg0gqNCLoHHzfYO4r eDihK5IltXF7OCPzu3l7An40S56x S4IeiKL+UBQegLG3eYN6 mK7hRtZfPfW1UGtsA944BuMvhAWw Oupws6zyf3njwCl9QgS1CGSetmBd cWuuPND8p2GpCv58X65s YJssCBZiNFUvFHQaNFVsbSevtm3o yG4rXz7+LQEajDG4iHU1gU4zTqAt YpF8BTbpT283CnEbrUNd Ywgyk1dcp7gplBq7SoMhBRIwppCp kMfxOQO0z1BrKx72Q4QqvAuve9Au Tir7dy02bEKrv4C7rRR4 K0EmDSOyengnhAGmaCavXX4xTVBm emgyXHGijC6yDFWwK4e4XlOiEiY2 AImgA7VnvpG5FXUzuRQf LBniAHV9Y84df5V2ZWXpWWZqWMR7 mIT6oH0bdQlhsjmgtKZguFofovEf rYahZFoyLLvqL752DMDt lBvkXTSljO4hGCVuzZRbcFcjFR4c WPKdfoyqLyKZC3XRGFEMXCrIAHzj dGQ+SBCuKHB3uYveLSzl DOWjrM1oZGTnE4a3GwMqRuO8CIzi J2ZsBYAdlucbWs51fS1lFrNbTkU0 YXmkZ6HfgzW9QNAakRIk YYqmQOM3T56bs3S2KHTlNBYbPST6 lVX1tL5trIcfkrogeSTqpIhbkjYp vXfiIEkxFSxqW285ENZv sTpbJzR7ZtY5HfV1CLJ2L3VyLva6 QPWrsDwvKD4grNXxLZvbIu0ppQon bUpjLX1vIOSjvtblLXCz nW4eHOWgsTQtyLfhIS4vSIMwuqlh k177QyPvAYK7YWOajPXtK5UfbN6k KrEwRALiFDCdK1HeuVPr MWbdL341NOceDzI7AEImuwDdQ0Hn QGLdnJmwDwQ1z3L8Ao9yTGBCTBPd czwvdGQ+GFNrTAR7fIax JVjxXSZouS4rOSGlN5d3XpImTiL4 IPbfC0UnDBRkkzriLj88aB1oBaUd GnY4WFifV2MkkjJ2UXTi yTIyWLjbRSM5Z81mj7H0JVXeFDWz OPA4pKG6gQ1ybPcmibfniYElqUxn akSfzKilGPavISpfS014 IHRvcDsnPkZlbWFsZTwvdGQ+PHRk FXY5nHaaVPwpOYLkvD7lNZCqD0p2 GhQfRqD9RFraK8IcTEVa rzkuFw24cU5eHdLeJpL6OMnfW1Ko qxS6XOIypCNrGSsyZGE7R41uv0G5 WPReAXUrMWE4oPP2eI4t bGlnbjogbGVmdDsgdmVydGljYWwt AKhvR023DERcwAijFb10xLRsoAil ygD9Q0KcUphyhDZ+PC90 WCIcJJ45dOJhcDXdm0mvwTm3TxTy VZGzMGA2mIetFPhhp6KeZWMmU53p kKAgq7E9DGCnuDscwSFl ByEshXG9oT1jKYkngpsgo5rubdtf Lkbfb4dpnj23sY76R68hDOyoABLd VZEaCRPjTQExaJwhpp1l jN2rWa7+JQEyyAI8zXN1pZ0gVxIn TqC1KGzrS612CjSkiWXyIsfip7iu y4agjWv8ElMvIKBxzlIm hZarEYT1l1QsAt85T13sDMlnIUMa JNFgQZHwOWUaoWrysa5yiL0yWx8+ IQ1pq9socr81lZ17cKZ+ LHXlVJP1iPgvUPncGNUxdW6gYZll GqN5CIEvVtBbxT66gIGwTJycCm4k kNsfzWfmLU1nPWVmctsu p694WbKjm6klUUQiwLVrXIbgVHQ0 Y84pc0Z1WKAxDXEwYWZ5kVR6xO4c bGlnbjogbGVmdDsgdmVy fNmfWRzhUCktG364VIUvaTxaKwOv aPHjZ6nrnrYTLQ9cKikaeQV+PHRk DCF3qYazVTvaDXSibS1h FEFnX9m8IgNpZtP1IIxyC2GuarX2 HLGymEBpYRMvrPHMeI7erhvtk0uc rsjbVqFnDETwIOv7ZQu1 BRGupEeaXvGuRRY0UiM1VBX2yVZf kM9jxFlqqggdfR8hLml+RklOOjwv dGQ+EBUyEUE6eAvxWZpz DSHirV1uTVQoO1u9QlQgNjG3VTtw Z6SgqeJ1GQPiyUMqMHAmsFSAzV4w xbzyb0zxscksSkVjKPOh QAf9RSv2HGYhxKdhWlApQOM2VjB7 ATI4wMKksA3huJnwmvigsN7zOfh+ TVJOOjwvdGQ+PHRkIHN0 aBoxVTnxZUEoqK6jDGMrP0n8BxLm PqT3PHfqZ9HxecR0CEBtzCXyRWCd iHSEjL9vcvshe3gqrzjw BmMiGRVrDDc9ELp8XYGfxBntMtJh GET3BuL5CCH0iYMwpT1ojKzyirfd jS4kHlc+HGN8GWN0PU68 ZC18I5SlMkzceXHjlRG+PHRhYmxl IJugONNaFDlaUIRhXaFobQqnJW5a Ym5jHQQpTPMctZsmtCRs OiBj (more content not included)... Normal [facility] Gastroenterology Office/Clin ic Noteon 03-05-2022 Gastroenterology Office/Clinic Note Chief Complaint Change in bowel habits HPI Staff Nica is a 37 year old female who presents today for a sick call for complaints of a change in bowel habits and abdominal pain. She denies fever and chills. History of Present Illness Nica Estrada is a 37-year-old white female who was last seen on 04/2021 for chronic idiopathic constipation. She has a history of gastric bypass surgery. 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 She states she never received a call from [facility] to schedule her appointment. However, the patient does state that her constipation has improved. She estimates a bowel movement every 2 to 3 days, but notes that last week she went 4 to 5 days without a bowel movement. She notes she sometimes alternates between diarrhea and constipation as well, stating she has had 7 bowel movements in the last 2 days. The patient states that she sometimes feels that she has to position herself in a particular way in order to have a bowel movement. She has not been using MiraLAX or any other stool softener or laxative, as she states her stool is already of a soft consistency. She endorses mild intermittent abdominal pain, but notes it is significantly improved since her last appointment. The patient denies nausea, vomiting, difficulty swallowing, and abdominal pain. The patient states she has not had appropriate lab work done since her gastric bypass surgery. She is currently on multivitamins. She complains of fatigue. Review of Systems PHQ Score Initial Depression Screen Score: 3 Detailed Depression Screen Score: 7 Total Depression Screen Score: 10 Constitutional: no fever, no chills, no sweats, no weakness. Positive for fatigue. Skin: no Jaundice, no rash, no lesions, no petechiae ENMT: no ear pain, no sore throat, no congestion, no hoarseness Respiratory: no shortness of breath, no cough, no orthopnea, no wheezing Cardiovascular: no chest pain, no palpitations, no edema Gastrointestinal: no nausea, no vomiting, no diarrhea, positive for constipation, no GI bleeding, no abdominal pain, no dysphagia, no bloating, no heartburn Genitourinary: no dysuria, no hematuria, no discharge, no pain Musculoskeletal: no back pain, no trauma Neurologic: no numbness, no sleeping problems Additional ROS info: Except as noted in the above Review of Systems and in the History of Present Illness all other systems have been reviewed and are negative or noncontributory. Physical Exam Vitals & Measurements HR: 52(Peripheral) BP: 130/86 HT: 155 cm HT: 155.0 cm WT: 54 kg WT: 54.0 kg BMI: 22.48 Constitutional: Appearance: well developed Skin: Inspection: no rashes, ulcers, icterus, or telangiectasias. Eyes: Conjunctivae/lids: normal conjunctivae and lids. ENMT: Hearing: within normal limits. Lips/Teeth/Gums: normal oral mucosa Neck: Neck: normal motion, central trachea Respiratory: Percussion: thorax normoresonant. Auscultation: normal breath sounds; no rubs, wheezes, rale or ronchi. Cardiovascular: Auscultation: normal rhythm, S1 and S2; no rubs, murmurs or gallop. Peripheral: no edema Gastrointestinal/Abdomen: Abdomen: normal consistency and bowel sounds; no tenderness or masses. Liver/Spleen: normal size and consistency, not palpable. Rectal: deferred Musculoskeletal: Gait/station: normal gait Assessment/Plan 1. S/P gastric bypass (Z98.84: Bariatric surgery status) The patient had a normal recent CBC and CMP. We will proceed with annual testing for vitamin levels including vitamin A, B, C, D, folic acid, and zinc. The patient was advised to continue with multiple vitamins daily. 2. Chronic idiopathic constipation (K59.04: Chronic idiopathic constipation) This is likely related to dyssynergia. It has proven with previous manometry. The patient reported that her symptoms are not bad enough to consider biofeedback at this time. She was advised to continue with fiber and symptomatic treatment for constipation as needed. 3. Dyssynergia (R27.8: Other lack of coordination) Please see #2. ATTESTATION: Documentation services were performed after patient or guardian consented to allow [facility] to record this visit. ROWAN flight communications specialist and provider reviewed before signing. ROWAN: Valerie Gonzalez. Follow-up No qualifying data available Problem List/Past Medical History Ongoing Chronic idiopathic constipation Colon polyps Constipation Dyssynergia Heartburn Left sided abdominal pain S/P gastric bypass Historical Change in bowel habit Procedure/Surgical History Colonoscopy (04/18/2020), Esophagogastroduodenoscopy (04/18/2020), Caesarean section, Cholecystectomy. Medications Bentyl 10 mg Cap, 40 mg, Oral, QID, PRN, 4 refills Dulcolax 5 mg Tab-EC, 5 mg= 1 tab(s), Oral, Daily, 1 refills Lyrica 25 mg Cap, Oral, TID Metamucil 525 mg oral capsule, 1050 mg= 2 cap(s), Oral, Daily, 1 refills, Not taking MiraLax, Oral, Daily Nurte (more content not included)... [facility] Comment on above: Result Comment: Elec tronically Signed By: Oral DIETZ MD\.br\Date and Time Signed: 03/05/22 10:19 EDT\.br\Electronically Co-Signed By: Valerie Gonzalez\.br\Date and Time Co-Signed: 03/01/22 17:20 EDT [facility] 03-05-2022 Lab Reports [id number] [facility] Ambulatory Visit Summaryon 0 03-01-2022 Ambulatory Visit Summary KEMAR ESTRADALY :1985 Visit Date:03/01/2022 Ambulatory Visit Instructions Your Diagnosis S/P gastric bypass Chronic idiopathic constipation Dyssynergia Your Care Team Attending Physician - Oral DIETZ MD Primary Care Physician - Vernon Castano III, DO This Is Your Medications List dicyclomine (Bentyl 10 mg Cap) Contact prescribing physician if questions or concerns albuterol (Ventolin HFA 90 mcg/inh Aerosol) bisacodyl (Dulcolax 5 mg Tab-EC) pantoprazole (Protonix) polyethylene glycol 3350 (MiraLax) pregabalin (Lyrica 25 mg Cap) propranolol psyllium (Metamucil 525 mg oral capsule) rimegepant (Nurtec ODT) tizanidine (tizanidine 4 mg oral capsule) topiramate (topiramate 100 mg Tab) verapamil (verapamil 120 mg Cap-ER) Procedures Performed Colonoscopy (04/18/2020), Esophagogastroduodenoscopy (04/18/2020), Caesarean section, Cholecystectomy. Discharge Vitals Heart Rate (Peripheral) 52 Blood Pressure 130/86 Height 155 cm Height 155.0 cm Weight 54 kg Weight 54.0 kg BMI 22.48 What to do next You Need to Complete the Following Copper Level, Blood, Routine collect, 03/01/22, Order for future visit, Lab Collect, S/P gastric bypass, Print Label By Order Location Ferritin, Blood, Routine collect, 03/01/22, Order for future visit, Lab Collect, S/P gastric bypass, Print Label By Order Location Folate Level, Blood, Routine collect, 03/01/22, Order for future visit, Lab Collect, S/P gastric bypass, Print Label By Order Location Iron Level, Blood, Routine collect, 03/01/22, Order for future visit, Lab Collect, S/P gastric bypass, Print Label By Order Location Magnesium Level, Blood, Routine collect, 03/01/22, Order for future visit, Lab Collect, S/P gastric bypass, Print Label By Order Location Vitamin A Level, Blood, Routine collect, 03/01/22, Order for future visit, Lab Collect, S/P gastric bypass, Print Label By Order Location Vitamin B1, Blood, Routine collect, 03/01/22, Order for future visit, Lab Collect, S/P gastric bypass, Print Label By Order Location Vitamin B12 Level, Blood, Routine collect, 03/01/22, Order for future visit, Lab Collect, S/P gastric bypass, Print Label By Order Location Vitamin B6 Lvl, Blood, Routine collect, 03/01/22, Order for future visit, Lab Collect, S/P gastric bypass, Print Label By Order Location Vitamin D 25 Hydroxy, Blood, Routine collect, 03/01/22, Order for future visit, Lab Collect, S/P gastric bypass, Print Label By Order Location Vitamin E Level, Blood, Routine collect, 03/01/22, Order for future visit, Lab Collect, S/P gastric bypass, Print Label By Order Location Zinc Level, Blood, Routine collect, 03/01/22, Order for future visit, Lab Collect, S/P gastric bypass, Print Label By Order Location Medications What How Much When Why Instructions Changed dicyclomine (Bentyl 10 mg Cap) 40 Milligram By Mouth 4 times a day as needed for Pain Pickup at [facility] Unchanged albuterol (Ventolin HFA 90 mcg/ inh Aerosol) 2 Puffs Inhalation 4 times a day as needed for Wheezing Contact prescribing physician if questions or concerns Unchanged bisacodyl (Dulcolax 5 mg Tab-EC) 1 Tablets By Mouth Every day Constipation Contact prescribing physician if questions or concerns Unchanged pantoprazole (Protonix) By Mouth Every day Contact prescribing physician if questions or concerns Unchanged polyethylene glycol 3350 (MiraLax) By Mouth Every day Contact prescribing physician if questions or concerns Unchanged pregabalin (Lyrica 25 mg Cap) By Mouth 3 times a day Contact prescribing physician if questions or concerns Unchanged propranolol Contact prescribing physician if questions or concerns Unchanged psyllium (Metamucil 525 mg oral capsule) 2 Capsules By Mouth Every day Left sided abdominal pain Change in bowel habit Take 2 hour apart from the other medications with at least 8 ounces of water Contact prescribing physician if questions or concerns Unchanged rimegepant (Nurtec ODT) By Mouth Once Contact prescribing physician if questions or concerns Unchanged tizanidine (tizanidine 4 mg oral capsule) 1 Capsules By Mouth 3 times a day as needed for Prophylaxis Contact prescribing physician if questions or concerns Unchanged topiramate (topiramate 100 mg Tab) 1 Tablets By Mouth 2 times a day Contact prescribing physician if questions or concerns Unchanged verapamil (verapamil 120 mg Cap-ER) By Mouth Every day Contact prescribing physician if questions or concerns Pharmacy Information [facility]: [address] [place], [place] [id number] [phone] Allergies Imitrex (nausea) Latex (Rash) SUMAtriptan (AOF) Problems Ongoing - Any problem that you are currently receiving treatment for. Chronic idiopathic constipation Colon polyps Constipation Dyssynergia Heartburn Left sided abdominal pain S/P gastric bypass Historical - Any problem that you are no longer receiving treatment (more content not included)... Normal [facility] CHEMISTRYOrdered By: SYSTEM SYSTEM on 03-01-2022 25-hydroxyvitamin D3 [Mass/Vol] 37.3 ng/mL Normal 30.0 - 100.0 ng/mL [facility] Remisol Iron [Mass/Vol] 48 ug/dL Normal 35 - 153 mcg/dL [facility] Remisol Magnesium [Mass/Vol] 1.9 mg/dL Normal 1.3 - 2.4 mg/dL [facility] Remisol CHEMISTRYOrdered By: Deanna miller on 03-01-2022 Cobalamin (Vitamin B12) [Mass/Vol] pg/mL Normal 50 - 1500 pg/mL [facility] Remisol Ferritin [Mass/Vol] 19 ng/mL Normal 11 - 307 ng/mL [facility] Remisol Folate [Mass/Vol] ng/mL Normal >=6.7ng/mL [facility] Re misol Consent for Treatmenton 02-14 Consent for Treatment [id number] Normal [facility] Ferritinon 03-01-2022 Ferritin [Mass/Vol] 19 ng/mL Normal 11-307 [facility] Comment on above: Result Comment: NORM ALS MEN <30 YRS 16-132 ng/mL MEN >30 YRS 8-338 ng/mL WOMEN (PREMEN) 6-104 ng/mL WOMEN (POSTMEN) 12-210 ng/mL Performed By: #### 2 [id number], 7985673, [id number], [id number], 7397352, 3306452, 27240301, 84318089, 54121811, 9339763, 60869095, [id number] ####[facility] [address] [place] [address] Folateon 03-01-2022 Folate [Mass/Vol] ng/mL Normal >=6.7 [facility] Comment on above: Performed By: #### 2 [id number], [id number], 87791403, [id number], 9808194, 6705260, 43197600, 32800236, 40663250, 3605567, 65116745, [id number] ####[facility] [address] [place] [address] Ironon 03-01-2022 Iron [Mass/Vol] 48 microgram/dL Normal 35-153 [facility] Comment on above: Performed By: #### 2 [id number], 4343088, [id number], [id number], 9272384, 8148783, 84764227, 70497302, 99061181, 8293196, 25747413, 92312604 ####[facility] [address] [place] [address] Magnesiumon 03-01-2022 Magnesium [Mass/Vol] 1.9 mg/dL Normal 1.3-2.4 [facility] Comment on above: Performed By: #### 2 438493, 8090548, 04224329, [id number], 2790048, 6660344, 74409932, 46505611, 69678366, 5866339, 09826420, 28351325 ####[facility] [address] [place] [address] Provider Letteron 03-01-2022 Provider Letter (Inserted Image. Yue ble to display) March 01, 2022 NICA ESTRADA [address] [place] [id number] NICA ESTRADA 1985 To Whom It May Concern, Please excuse above patient from work. Date of Illness: From: _03/01/22 To: _ May Return to Work On:03/02/22 Restrictions: _ Comments: _ Sincerely, Normal [facility] Vit B12on 03-01-2022 Cobalamin (Vitamin B12) [Mass/Vol] pg/mL Normal 50-1500 [facility] Comment on above: Performed By: #### 2 897423, 2612136, 77235728, 435003814, 7590453, 7755302, 98194906, 49716539, 96190175, 7312098, 23570334, 21252836 ####[facility] [address] [place] [address] Vitamin D 25 Hydroxyon 03-01 25-hydroxyvitamin D3 [Mass/Vol] 37.3 ng/mL Normal 30.0-100.0 [facility] Comment on above: Result Comment: Vit estevez D deficiency has been defined as a level of serum 25-OH vitamin D less than 20 ng/mL (1,2) by the [place] [employer] and an Endocrine Society practice guideline. The Endocrine Society further defined vitamin D insufficiency as a level between 21 and 29 ng/mL (2). 1. IOM ([place] [employer]). 2010. Dietary reference intakes for calcium and D. [place]: The National Academies Press. 2. Cecilio MF, Elieser FRANK, Mary Jane IYER, et al. Evaluation, treatment, and prevention of vitamin D deficiency: an Endocrine Society clinical practice guideline. JCEM. 2010; 96 (7):1911-30. Performed By: #### 2 [id number], 2743553, 13549158, [id number], 0360795, 8087706, 17982468, 53820053, 08230374, 8597950, 82425469, 87471954 ####[facility] [address] [place] [address] CNOVon 11-10-2021 CNOV Office Visit (GENSSM ) NICA ESTRADA ([id number]) 1985 F Date Time Provider Department 11/10/21 10:20 AM ENA MCGINNIS During your visit today, we recorded the following information about you: Temperature Pulse Respiration Blood pressure 97 degrees 56/minute 16/minute 117/79 Weight 53.9 kg Ena Mcginnis MD 11/13/2021 5:34 PM Signed Assessment BMI Established Visit Patient seen for 1 year follow up. Surgery: Laparoscopic Trevor-en-Y gastric bypass/repair of HH Date of Surgery:?10/24/2020 ? 12/16/2020 s/p EGD: GJ stenosis, dilated Patient feels excellent. Diet: Tolerating everything. Sugar: Avoiding Dumping syndrome/symptoms: No Abdominal pain: No Nausea or vomiting: No Reflux: No Gallbladder symptoms: No Symptoms of vitamin deficiency: No Multivitamins and supplements: Taking all recommended vitamin/minerals including daily multivitamin complete, VIt D3 3,000 IU, Vit B12 500 mcg, Iron 45-60 mg and calcium citrate 8595-8505 mg/day PHYSICAL EXAMINATION: Weight loss: BMI 23.2 - 118 lbs today BMI 26.3 - 135 lbs?06/15/2021 BMI?32.0?- 164?lbs 02/09/2021 BMI 36.2 - 192 lbs 11/24/2020 BMI?38.1?- 195?lbs?11/17/2020 BMI?39.8?- 204?lbs?11/01/2020 BMI?41.7?- 214?lbs pre operative BP 117/79 Pulse (!) 56 Temp 36.1 ?C (97 ?F) Resp 16 Wt 53.9 kg (118 lb 12.8 oz) LMP 01/09/2021 (Approximate) SpO2 100% BMI 23.20 kg/m? General appearance: Well appearing, alert, in no acute distress, well-hydrated, well nourished. Skin: Skin color, texture, turgor normal, no suspicious rashes or lesions Head: Normocephalic, no masses, lesions, tenderness or abnormalities Eyes: Anicteric sclera. Pupils are equally round and reactive to light. Extraocular movements are intact. Nose/Sinuses: Nares normal, septum midline, mucosa normal, no drainage or sinus tenderness Oropharynx: Lips, mucosa, and tongue normal, teeth and gums normal, oropharynx normal Neck: Supple, no adenopathy; thyroid symmetric, normal size, no bruits Abdomen: Normal abdominal exam, Abdomen soft, non-tender.No masses, organomegaly Extremities: No deformities, edema, skin discoloration, clubbing or cyanosis. Good capillary refill. Musculoskeletal: No joint swelling, deformity, or tenderness Peripheral pulses: Normal Neuro: Gait normal. Impression: Status post laparoscopic gastric bypass Plan: ? Doing great ? EGD Ena Mcginnis MD Referring Provider: ENA MCGINNIS [[id number]] Allergies As of Date: 11/10/2021 Noted Allergy Reaction IMITREX (SUMATRIPTAN) 06/27/2017 14 - Other: See Comments Comments: nausea LATEX 06/27/2017 14 - Other: See Comments Comments: Blisters Date Reviewed: 11/10/2021 Reviewed by: Gracie Rizvi - Fully Assessed Reason for Visit: Gastric Bypass [1336] Primary Visit Diagnosis:S/P gastric bypass [Z98.84] Prescriptions as of 11/13/2021 - baclofen (LIORESAL) 10 mg tablet Take 10 mg by mouth as directed. - fexofenadine (RODY ALLERGY) 180 mg tablet Take 180 mg by mouth once daily. - biotin 5,000 mcg ODT Take by mouth. - cyanocobalamin (VITAMIN B-12) 1,000 mcg tab Take 1,000 mcg by mouth once daily. - Lactobacillus acidophilus (PROBIOTIC ORAL) Take by mouth. - multivit-min/iron/folic acid/K (BARIATRIC MULTIVITAMINS ORAL) Take by mouth. - clotrimazole (ALEVAZOL TOPICAL) Apply to affected area. - dicyclomine HCl (BENTYL ORAL) Take by mouth. - alprazolam (XANAX ORAL) Take by mouth. - propranolol ER (INDERAL LA) 120 mg 24 hr capsule Take 120 mg by mouth once daily. - verapamil SR (CALAN SR, ISOPTIN SR) 120 mg CR tablet Take 1 tablet by mouth once daily. - NURTEC ODT 75 mg disintegrating tablet Take 1 tablet by mouth PRN(NO DISPENSE) for Migraine Headache (see administration instructions). - nystatin (MYCOSTATIN) powder Apply to affected skin up to 4 times per day - cetirizine (ZYRTEC) 10 mg tablet Take 10 mg by mouth once daily. - topiramate (TOPAMAX) 50 mg tablet Take 50 mg by mouth twice daily. - FLUoxetine (PROZAC) 10 mg capsule Take 10 mg by mouth once daily. - gabapentin (NEURONTIN) 100 mg capsule Take 1 capsule by mouth three times daily for 14 days. - scopolamine (TRANSDERM-SCOP) patch 1.5 mg/72 hr (1 mg over 3 days) Apply 1 Patch as directed every 72 hours. Apply one patch behind the ear every 3 days - ondansetron orally disintegrating (ZOFRAN ODT) 4 mg disintegrating tablet Take 1 tablet by mouth every 8 hours as needed for Nausea/Vomiting. - pantoprazole DR (PROTONIX) 40 mg tablet Take 40 mg by mouth once daily. - omeprazole (PRILOSEC) 20 mg capsule (Discontinued) Take 20 mg by mouth once daily. Problem List As Of Date 11/10/2021 Noted Resolved Left ureteral stone [N20.1] 06/27/2017 Left lower quadrant pain [R10.32] 06/27/2017 Ureteral stone with hydronephrosis [N13.2] 06/27/2017 Alopecia [L65.9] 07/23/2018 Positive JUANITA (a (more content not included)... Normal [facility] MRI [facility] EM[facility]PART[facility] WO CON EXAMINATION: MRI CSP INE WO CON HISTORY: Cervical spondylosis without myelopathy COMPARISON: No relevant comparison available. TECHNIQUE: A variety of imaging planes and parameters were utilized for visualization of suspected pathology. FINDINGS: CRANIOCERVICAL AREA: Normal foramen magnum with no Chiari malformation. PARASPINAL AREA: Normal with no visible mass. BONES: Normal alignment with no acute fracture or spondylolisthesis. No bone edema. CORD: Normal caliber, contour, and signal intensity. CERVICAL DISC LEVELS: C2-C3: No significant disc/facet abnormality, spinal stenosis, or foraminal stenosis. C3-C4: No significant disc/facet abnormality, spinal stenosis, or foraminal stenosis. C4-C5: No significant disc/facet abnormality, spinal stenosis, or foraminal stenosis. C5-C6: Moderate degenerative disc disease is present without visible neural impingement. C6-C7: Moderate degenerative disc disease is present most significant along the left neural foramen. No central canal or right foraminal stenosis. Moderate narrowing of the left neural foramen, axial image 22, sagittal image 3 C7-T1:. No significant disc/facet abnormality, spinal stenosis, or foraminal stenosis. IMPRESSION: Degenerative discogenic changes, most significant at C6-C7 where moderate left foraminal stenosis is observed Electronically authenticated by: MANOHAR ALONZO Date: 2021-11-10 14:28 Normal [facility] CNOVon 06-15-2021 CNOV Office Visit ([id number] ) NICA ESTRADA ([id number]) 1985 F Date Time Provider Department 06/15/21 11:30 AM ENA MCGINNIS [id number] During your visit today, we recorded the following information about you: Temperature Blood pressure Weight Height 97.4 degrees 133/89 61.2 kg 1.524 m Emily Gallagher Ma 06/15/2021 11:41 AM Signed What is the reason for your visit today? Follow up Who is your referring physician? Are you having poor oral intake? NO Have you had unintentional weight loss of 15 lbs/7 Kg in the last 3-6 months? NO Bowels: regular Wound: Temperature: No Drains: No Marcella Saldana RN 06/15/2021 12:[address] Ena Bose has requested a post operative upper endoscopy (EGD) for your bariatric surgery. This procedure is to examine your stomach and small intestines. A referral will be sent to Dr. Denny Yu's staff for upper endoscopy (EGD). You may also call directly to schedule upper endoscopy at [phone]. Please leave a message if you receive the voicemail with your name, birthday, and reason for calling. Please expect a call or [email or web address] message with appointment information and instructions. What is upper endoscopy? Upper endoscopy is a routine, outpatient procedure in which the inside of the upper digestive system is examined. The procedure is commonly used to help identify the causes of: ? Abdominal or chest pain ? Nausea and vomiting ? Heartburn ? Bleeding ? Swallowing disorders Endoscopy can also help identify inflammation, ulcers and tumors. Upper endoscopy is more accurate than x-rays for detecting abnormal growths and for examining the inside of the upper digestive system. The improved accuracy is especially important if you have had dhmgv-kjuulyrjl-zqrsg surgery in the past. How is an upper endoscopy done? During the procedure, a physician uses an endoscope (a long, thin, flexible instrument about 1/2 inch in diameter) to examine the inside of the upper digestive system. Abnormalities can be treated through the endoscope. Polyps (usually benign growths) can be identified and removed, and tissue samples (biopsies) can be taken for analysis. Procedures such as stretching narrowed areas, removing swallowed objects or treating bleeding from the upper digestive system can also be performed as part of upper endoscopy. What do I need to do before the procedure? Special conditions ? Tell your physician if you are , have a lung or heart condition, or if you are allergic to any medications. ? If you are taking blood-thinning medications -- such as Coumadin? or Plavix? -- these medications may have to be stopped for a period of time before the endoscopy. Please discuss this with your physician prior to the procedure. ? If you have diabetes and use insulin, you must adjust the dosage of insulin the day of the test. Your primary physician will help you with this adjustment. Bring your diabetes medication with you so you can take it after the procedure. Eating and drinking ? An endoscopy requires that you have an empty stomach before the procedure. Do not eat any solid food for 8 hours before the procedure. You may drink clear liquids up until 4 hours before the procedure. Clear liquids include clear broth, hard candy, plain Jell-O?, black coffee, black tea, apple juice, nany nghia, 7UP?, silvana, Matthew-Aid?, Gatorade?, Hi-C? and popsicles. Transportation ? You will need to bring a responsible adult with you to accompany you home after the procedure. You should not drive or operate machinery for at least 8 hours after the procedure. The sedation given during the procedure causes drowsiness, dizziness and impairs your judgment, making it unsafe for you to drive or operate machinery. On the day of the procedure A physician will explain the procedure in detail, including possible complications and side effects. The physician will also answer any questions you may have. What happens during the procedure? ? The procedure is performed by an experienced endoscopy physician. ? You are asked to wear a hospital gown and remove your eyeglasses and dentures. ? A local anesthetic (pain-relieving medication) may be applied at the back of your throat. ? You are given a pain reliever and a sedative intravenously (in your vein). You will feel relaxed and drowsy. ? A mouthpiece is placed in your mouth. It does not interfere with your breathing. ? You will lie on your left side during the procedure. ? The physician inserts an endoscope into your mouth, through your esophagus (the food pipe leading from your mouth into your stomach) and into your stomach. The endoscope does not interfere with your breathing. ? The procedure lasts from 15 to 20 minutes. What happens after the procedure? ? You will stay in a recovery room for about 30 minutes for (more content not included)... Normal [facility] US breast RT limitedon 05-12 US breast RT limited [facility] Main [place] [id number] Ultrasound Report Signed Patient: Nica Estrada MR#: [id number] 7 : 1985 Acct:[id number] Age/Sex: 36 / F ADM Date: 05/12/21 Loc: [facility] Room: Type: [facility] Attending Dr: Julianne KIDD, [employer] Ordering Provider: MARTI Loera Date of Service: 05/12/21 US/US breast RT limited: RT LUMP Copies to: MARTI Loera [employer] LIMITED RIGHT BREAST ULTRASOUND CLINICAL DATA: Palpable lump near the chest wall. Weight loss. COMPARISON: Mammogram June 09, 2016 Real-time ultrasound evaluation of the central medial right breast was performed. The patient indicated the site of palpable concern was located at 3-4 o'clock, 13 cm from the nipple. There are no cystic or solid masses within the breast in this area. The palpable lump may correlate with the underlying ribs. US/US breast RT limited IMPRESSION: NO ULTRASOUND ABNORMALITIES AT THE SITE OF PALPABLE CONCERN. CLINICAL FOLLOW-UP IS SUGGESTED. Impression dictated by: Kaye Howell M.D.05/12/2021 10:45 AM Dictation Location: [facility] Tech: Ronit House Transcribed By: RANCHO 05/12/21 1045 Dictated By: Kaye Howell MD 05/12/21 1041 Signed By: 05/12/21 1045 [facility] HISTORY PHYSICALon HISTORY PHYSICAL HNO ID: [id number] Author: Kalpana Otero MD Service: General Surgery Author Type: Resident Type: HANDP Filed: 12/16/2020 9:40 AM Note Text: PROCEDURAL SEDATION HISTORY AND PHYSICAL EXAM SERVICE DATE: 12/16/2020 SERVICE TIME: 9:33 AM Subjective HPI: This is a 35 year old female s/p Laparoscopic RYGB who presents for EGD for evaluation of marginal ulcer. Patient denies any fever, chills, shortness of breath, chest pain or cough. PAST ANESTHESIA HISTORY: No history of adverse event PAST MEDICAL HISTORY Diagnosis Date - Anxiety - Asthma uses inhaler a few times a month - Depression Currently not treated - Fibromyalgia Zanaflex - Gastroesophageal reflux disease without esophagitis - GERD (gastroesophageal reflux disease) - Hyperlipemia - Hypertension - Iron deficiency anemia - Migraine - MELISA (obstructive sleep apnea) PAST SURGICAL HISTORY Procedure Laterality Date - >=3 x 2 - CHOLECYSTECTOMY 2007 - PAST SURGICAL HISTORY OF tendon surgery Prior to Admission medications as of 12/16/20 0930 Medication Sig Last Dose Taking cetirizine (ZYRTEC) 10 mg tablet Take 10 mg by mouth once daily. 12/15/2020 at 0800 Yes topiramate (TOPAMAX) 50 mg tablet Take 50 mg by mouth twice daily. 12/15/2020 at 2100 Yes FLUoxetine (PROZAC) 10 mg capsule Take 10 mg by mouth once daily. 12/15/2020 at [address] (PROTONIX) 40 mg tablet Take 40 mg by mouth once daily. 12/15/2020 at 0800 Yes propranolol (INDERAL) 40 mg tablet Take 40 mg by mouth twice daily. 12/15/2020 at 2100 Yes tiZANidine (ZANAFLEX) 4 mg tablet Take 4 mg by mouth every 6 hours as needed. 12/15/2020 at 2100 Yes gabapentin (NEURONTIN) 100 mg capsule Take 1 capsule by mouth three times daily for 14 days. scopolamine (TRANSDERM-SCOP) patch 1.5 mg/72 hr (1 mg over 3 days) Apply 1 Patch as directed every 72 hours. Apply one patch behind the ear every 3 days 12/11/2020 ondansetron orally disintegrating (ZOFRAN ODT) 4 mg disintegrating tablet Take 1 tablet by mouth every 8 hours as needed for Nausea/Vomiting. 12/13/2020 BUTALBITAL-ACETAMINOPHEN ORAL Take by mouth. Unknown at Unknown time omeprazole (PRILOSEC) 20 mg capsule Take 20 mg by mouth once daily. ALLERGIES Allergen Reactions - Imitrex [Sumatripta* Other: See Comments nausea - Latex Other: See Comments Blisters Objective PHYSICAL EXAM: The remainder of the physical exam is noncontributory. AIRWAY: LUNGS: Lungs clear to auscultation, Good diaphragmatic excursion CARDIAC: Normal S1 and S2; no rubs, murmurs, or gallops Assessment/Plan ASA Class: Active Problems: * No active hospital problems. * Resolved Problems: * No resolved hospital problems. * Provisional Diagnosis/Treatment Plan: Plan for EGD with possible biopsies SIGNATURE: Kalpana Otero MD PATIENT NAME: Nica Estrada DATE: December 16, 2020 TIME: 9:33 AM [facility] NURSING PROGon 12-16-2020 NURSING PROG HNO ID: [id number] Author: Yashira LauRn) DEEPTHI Nova Service: Nursing Author Type: Registered Nurse Type: Nursing Progress Note Filed: 12/16/2020 9:26 AM Note Text: PATIENT EDUCATION TOPIC: PROCEDURE / SURGERY: EGD PATIENT NAME: Nica Estrada PATIENT LOCATION: [facility]O POOL/[facility] ENDO POOL READINESS TO LEARN COGNITIVE ABILITY: Alert and oriented MOTIVATION TO LEARN: Interested FAMILY SUPPORT: Unable to assess - Family not present INSTRUCTION PROVIDED TO: Patient PATIENT LEARNS BEST BY: Verbal Instruction FACTORS AFFECTING LEARNING: None PHYSICAL LIMITATIONS AFFECTING LEARNING: None LEARNING RESPONSE DIAGNOSIS: ADULT: Nausea vomiting, s/p gastric bypass 10/2020 PATIENT/FAMILY RESPONSE: Verbalizes understanding of: EGD METHOD OF INSTRUCTION: Verbal instruction FOLLOW-UP PLAN: Complete - No need for follow-up INSTRUCTIONAL AIDS USED: NA SUPPLEMENTAL MATERIAL PROVIDED TO PATIENT: None REFERRAL (RECOMMENDATION): None Electronically Signed By: Yashira Nova RN [facility] PT EDon 12-16-2020 PT ED HNO ID: [id number] Author: Manohar LauRn) DEEPTHI Conn Service: Nursing Author Type: Registered Nurse Type: Patient Education Filed: 12/16/2020 11:03 AM Note Text: PATIENT EDUCATION TOPIC: PROCEDURE / SURGERY: Post Procedure Teaching: PATIENT NAME: Nica Estrada PATIENT LOCATION: [facility] POOL READINESS TO LEARN COGNITIVE ABILITY: Alert and oriented MOTIVATION TO LEARN: Interested FAMILY SUPPORT: Unable to assess - Family not present INSTRUCTION PROVIDED TO: Patient PATIENT LEARNS BEST BY: Individual Instruction Written Instruction - Hand-outs Verbal Instruction FACTORS AFFECTING LEARNING: None PHYSICAL LIMITATIONS AFFECTING LEARNING: None LEARNING RESPONSE DIAGNOSIS: ADULT: PATIENT/FAMILY RESPONSE: Verbalizes understanding of: METHOD OF INSTRUCTION: Individual instruction Group class instruction Written instruction - handouts FOLLOW-UP PLAN: Complete - No need for follow-up INSTRUCTIONAL AIDS USED: NA SUPPLEMENTAL MATERIAL PROVIDED TO PATIENT: None REFERRAL (RECOMMENDATION): None Electronically Signed By: Manohar Conn RN [facility] NURSING PROGon 10-25-2020 NURSING PROG HNO ID: [id number] Author: Diego Abad RN Service: ? Author Type: Registered Nurse Type: Nursing Progress Note Filed: 10/25/2020 2:09 AM Note Text: Nursing Progress Note Patient Name: Nica Estrada [address]: [address] Daily Note: 2000: Assessment complete see NPR. Pt present w/ nausea Zofran given. Pain 8/10 PRN pain med given. 0100: Nausea concerned by pt. Paged for second like prevention. 0130: Compazine ordered/given. No cough or SOB at this time. Lap sites intact no bruising. No gas passed yet. This note was completed by: Diego Abad [facility] PLAN OF CAREon 10-25-2020 PLAN OF CARE HNO ID: [id number] Author: Davina Bonilla ([employer]) Service: Pharmacy Author Type: ? Type: Plan of Care Filed: 10/25/2020 2:56 PM Note Text: Pharmacy Discharge Medication Service: This patient has elected to receive their discharge prescriptions through the [facility] Bedside Prescription Delivery program. The prescriptions are currently being processed. A follow-up note will be entered once the prescriptions have been filled and delivered to the patient. Please contact me with any questions or updates to the patient's discharge medications. Davina Bonilla ([employer]) DCT Contact Info: [phone] [facility] PLAN OF CARE HNO ID: [id number] Author: Davina Bonilla ([employer]) Service: Pharmacy Author Type: ? Type: Plan of Care Filed: 10/25/2020 2:56 PM Note Text: [employer] BEDSIDE DELIVERY SURVEY 1. Patient to use [facility] Bedside Delivery - YES Insurance Information as follows: 2. Insurance card on file - YES 3. Credit card for payment - N/A [facility] PLAN OF CARE HNO ID: [id number] Author: Davina Bonilla ([employer]) Service: Pharmacy Author Type: ? Type: Plan of Care Filed: 10/25/2020 2:56 PM Note Text: PHARMACY BEDSIDE DELIVERY SERVICE Patient Name: Nica Estrada The marked outpatient medications were filled and delivered bedside. Medication List START taking these medications oxyCODONE IR 5 mg immediate release tabletX Commonly known as: ROXICODONE Take 1 tablet by mouth every 8 hours as needed for Pain for up to 3 days. CONTINUE taking these medications BUTALBITAL-ACETAMINOPHEN ORAL gabapentin 100 mg capsule Commonly known as: NEURONTIN Take 1 capsule by mouth three times daily for 14 days. ondansetron orally disintegrating 4 mg disintegrating tablet Commonly known as: ZOFRAN ODT Take 1 tablet by mouth every 8 hours as needed for Nausea/Vomiting. pantoprazole DR 40 mg tablet Commonly known as: PROTONIX propranolol 40 mg tablet Commonly known as: INDERAL PROzac 10 mg capsule Generic drug: FLUoxetine scopolamine 1 mg over 3 days Commonly known as: TRANSDERM-SCOP Apply 1 Patch as directed every 72 hours. Apply one patch behind the ear every 3 days TOPAMAX 50 mg tablet Generic drug: topiramate ZANAFLEX 4 mg tablet Generic drug: tiZANidine You might also be taking other medications not listed above. If you have questions about any of your other medications, talk to the person who prescribed them or your Primary Care Provider. Davina Bonilla ([employer]) PAGER: [phone] October 25, 2020 2:56 PM [facility] PROGRESSon 10-25-2020 PROGRESS HNO ID: [id number] Author: Presley Torrez Service: General Surgery Author Type: Physician Type: Progress Notes Filed: 10/25/2020 7:03 AM Note Text: BARIATRIC POSTOP PROGRESS NOTE SERVICE DATE: 10/25/2020 SERVICE TIME: 0640 Subjective CHIEF COMPLAINT: POD 1 S/P LRYGB PRIMARY SERVICE: Bariatric INTERVAL HPI: Patient feeling well. Pain under control. Tolerating Phase 1. No N/V. Current Facility-Administered Medications Medication Dose Route Frequency - topiramate 50 mg tab(s) (TOPAMAX) 50 mg ORAL BID - propranolol 40 mg tab(s) (INDERAL) 40 mg ORAL BID - FLUoxetine 40 mg cap(s) (PROzac) 40 mg ORAL DAILY - enoxaparin 40 mg injection (LOVENOX) 40 mg SUBCUTANEOUS q 12 H - lactated ringers infusion 100 mL/hr INTRAVENOUS CONTINUOUS - acetaminophen 1,000 mg tab(s) (TYLENOL) 1,000 mg ORAL q 6 H - gabapentin 100 mg cap(s) (NEURONTIN) 100 mg ORAL q 8 H - keTORolac 15 mg injection (TORADOL) 15 mg INTRAVENOUS q 6 H - ondansetron (PF) 4 mg injection (ZOFRAN) 4 mg INTRAVENOUS q 6 H PRN - pantoprazole 20 mg injection (PROTONIX) 20 mg INTRAVENOUS BID AC (0600/1600) - prochlorperazine 5 mg injection (COMPAZINE) 5 mg INTRAVENOUS q 6 H PRN Objective PHYSICAL EXAM: BP 127/88 Pulse 73 Temp (Src) 98.1 (Oral) Resp 16 Ht 5' 0 (1.52m) Wt 215 lb (97.5kg) SpO2 96% LMP 10/03/2020 BMI 41.99 kg/(m2). O2 Therapy: Room Air, Liters: 2.00 General: Alert and oriented Cardiovascular: normal VS Lungs: normal effort Abdomen: soft, tenderness appropriate for POD1, incisions CDI Extremities: No deformity, no edema or tenderness, no joint swelling or clubbing. Neurological: Normal cognition and motor skills. Assessment/Plan Patient Active Problem List PONV (postoperative nausea and vomiting) Iron deficiency anemia MELISA (obstructive sleep apnea) Hyperlipemia Asthma Morbid obesity (HCC) Hypertension Migraine GERD (gastroesophageal reflux disease) Alopecia Positive JUANITA (antinuclear antibody) Fibromyalgia Left ureteral stone Left lower quadrant pain Ureteral stone with hydronephrosis Resolved Hospital Problems No resolved problems to display. POD 1 S/P LRYGB Neuro: continue current pain regimen HD: Stable Resp: Stable Renal: Urinating freely ID: no concerns GI: advance to phase 2 Dispo: Discharge today To be discussed with Dr. Mcginnis SIGNATURE: Presley Torrez MD PATIENT NAME: Nica Estrada DATE: October 25, 2020 TIME: 7:02 AM Normal [facility] PROGRESS HNO ID: [id number] Author: Juliet Lilly Service: General Surgery Author Type: Resident Type: Progress Notes Filed: 10/25/2020 3:06 AM Note Text: POST OPERATIVE CHECK Patient Name: Nica Estrada SERVICE DATE: 10/24/2020 PRIMARY SERVICE: General Surgery SUBJECTIVE: The patient is doing well in the immediate postoperative period. Resting comfortably in bed. Afebrile, VSS, HDS. Pt ambulating:to bathroom without issues Pain well controlled w/ Oxy, Tylenol and toradol UOP adequate. Tolerating PO clears Denies N/V. Denies SOB or CP. Pt has no complaints at this time. OBJECTIVE Vitals: Patient Vitals for the past 24 hrs: BP Temp Temp src Pulse Resp SpO2 Height Weight 10/24/20 1929 147/81 36.8 ?C (98.2 ?F) Oral 85 16 97 % ? ? 10/24/20 1902 ? 152.4 cm (5') 97.5 kg (215 lb) 10/24/20 1830 ? ? ? 73 16 98 % ? ? 10/24/20 1815 134/89 ? ? 63 9 100 % ? ? 10/24/20 1800 133/93 ? ? 68 13 99 % ? ? 10/24/20 1745 114/78 ? ? 61 10 99 % ? ? 10/24/20 1730 119/81 ? ? 62 10 99 % ? ? 10/24/20 1715 129/81 ? ? (!) 56 15 99 % ? ? 10/24/20 1700 133/91 ? ? 62 15 99 % ? ? 10/24/20 1645 123/85 ? ? 69 15 98 % ? ? 10/24/20 1642 143/102 37 ?C (98.6 ?F) Temporal 73 24 100 % ? ? 10/24/20 1231 137/84 36.8 ?C (98.2 ?F) Temporal 79 18 98 % ? ? BP 147/81 Pulse 85 Temp 36.8 ?C (98.2 ?F) (Oral) Resp 16 Ht 152.4 cm (5') Wt 97.5 kg (215 lb) LMP 10/03/2020 SpO2 97% BMI 41.99 kg/m? BP 147/81 Pulse 85 Temp 36.8 ?C (98.2 ?F) (Oral) Resp 16 Ht 152.4 cm (5') Wt 97.5 kg (215 lb) LMP 10/03/2020 SpO2 97% BMI 41.99 kg/m? PHYSICAL EXAM: General: no distress, laying comfortably in bed, alert and oriented Cardiac: regular rate and rhythm Pulmonary: non-labored breathing on room air Abdomen: soft, non-distended, appropriately tender with palpation. Incision(s): clean, dry and intact, minimal strike through on skin glue Extremities: warm and well perfused, no lower extremity edema. Pulses palpable. No hematuria. ASSESSMENT AND PLAN: Ms. Estrada is a 35 year old female POD 0 s/p RYGB for Obesity. She is doing well with complaints of nausea with moderate response to Zofran. Plan: - Continue pain control w/ multimodal pain regimen - PRN compazine added - Pt hemodynamically stable. Continue to monitor. - Clinical exam appropriate for immediate post-op period - Continue routine post-operative care Juliet Lilly MD General Surgery PGY1 [facility] PT EDon 10-25-2020 PT ED HNO ID: [id number] Author: Geoff Hector Service: Nutrition Therapy Author Type: Traffic Engineering Technician Type: Patient Education Filed: 10/25/2020 12:04 PM Note Text: NUTRITION THERAPY PATIENT EDUCATION SERVICE DATE: 10/25/2020 SERVICE TIME: 10:30 AM TOPIC: Diet: Bariatric LEARNING ASSESSMENT Individuals Assessed: Patient Preferred Learning Method: : Verbal Instruction and Written Instruction Barriers to Learning: : None Evident LEARNING RESPONSE Instruction Provided to: Patient Patient / Family Response: Verbalizes Understanding Method of Instruction: Written instruction - handouts Verbal instruction Material(s) Provided to Patient: Bariatric Surgery Post Operative Care Follow-Up Plan: Patient instructed to call with any further issues Referral (Recommendation): Nutrition - Outpatient Currently tolerating phase II at time of visit. MNT Billing: Routine Care/15 min 2 units SIGNATURE: GEOFF HECTOR DTR PATIENT NAME: Nica Estrada DATE: October 25, 2020 TIME: 12:04 PM PAGER: [phone] [facility] ANES POSTPROC EVALon 021 ANES POSTPROC EVAL HNO ID: [id number] Author: Brandon Stoddard Service: Anesthesiology Author Type: Anesthesiologist Type: Anesthesia Postprocedure Evaluation Filed: 10/24/2020 4:58 PM Note Text: POST ANESTHESIA EVALUATION NOTE : 1985 Procedure Summary Date: 10/24/20 Room / Location: OR05 / [facility] OR Anesthesia Start: 1402 Anesthesia Stop: 1643 Procedure: LAPAROSCOPIC GASTRIC RESTRICTIVE SURG W/ BYPASS AND TREVOR-EN-Y Morbid obesity (HCC) (Morbid obesity (HCC) [E66.01]) Surgeons: Ena Mcginnis Responsible Provider: Brandon Stoddard Anesthesia Type: general ASA Status: 3 Anesthesia Type: general Last vitals Vitals Value Taken Time BP 123/85 10/24/20 1645 Temp 37 ?C (98.6 ?F) 10/24/20 1642 Pulse 61 10/24/20 1658 Resp 15 10/24/20 1658 SpO2 97 % 10/24/20 1658 Vitals shown include unvalidated device data. Post Anesthesia Patient Status Patient Evaluation: PACU. PACU/ICU Patient Condition: stable. Anticipated Disposition: phase 2 then home. Neurological Status: aware and responsive. Pulmonary Status: breathing comfortably on room air Airway Control: returned to baseline unsupported. Cardiovascular Status: stable. Pain Management: clinically adequate - multimodal analgesia pain management approach Postoperative Hydration: acceptable. Intraoperative Events: no significant anesthesia events Post Operative Nausea/Vomiting Status: PONV - significant post operative nausea or vomiting with additional medications being ordered/administered. Anesthetic Observations: no significant anesthetic observations Recommendation: continue current plan of care. SIGNATURE: Brandon Stoddard MD PATIENT NAME: Nica Estrada DATE: October 24, 2020 TIME: 4:58 PM CSN: [id number] [facility] ANES PRE-OPon 10-24-2020 ANES PRE-OP HNO ID: [id number] Author: Colin Archer Service: Anesthesiology Author Type: Anesthesiologist Type: Anesthesia Preprocedure Evaluation Filed: 10/24/2020 1:20 PM Note Text: ANESTHESIOLOGY DAY OF SURGERY NOTE : 1985 Procedure(s) (LRB): LAPAROSCOPIC GASTRIC RESTRICTIVE SURG W/ BYPASS AND TREVOR-EN-Y (N/A) Surgeon(s): Ena Mcginnis Estimated body mass index is 41.79 kg/m? as calculated from the following: Height as of 10/17/20: 152.4 cm (5'). Weight as of 10/17/20: 97.1 kg (214 lb). Most recent hematocrit and potassium results: Hematocrit 44.1 10/17/2020 Potassium 4.2 10/17/2020 Relevant Problems ANESTHESIA (+) MELISA (obstructive sleep apnea) CARDIO (+) Hypertension (+) Migraine GI (+) GERD (gastroesophageal reflux disease) -RENAL (+) Ureteral stone with hydronephrosis PULMONARY (+) Asthma (+) MELISA (obstructive sleep apnea) I - PHYSICAL EVALUATION AIRWAY Patient intubated: No. Mallampati: II. TM distance: >3 FB. Neck ROM: full ROM without neurological symptoms. Mouth opening: adequate. Short neck: no. Thick neck: no DENTAL Dental findings: teeth intact. Additional exam findings: no II - ANESTHESIA PLAN ASA Score: 3 Anesthetic Plan: general Airway type: ETT Anesthetic plan additional comments: Symptoms of Sleep Apnea: Mild. Does not require machine. Previous Anesthesia: No history of adverse event Family history of anesthetic problems: None Functional Capacity Assessment:Denies chest pain and SOB with exertion. Denies change in functional capacity. History of GERD: Yes- Well controlled with no positional symptoms Most recent lab results: Hemoglobin 15.1 10/17/2020 Hematocrit 44.1 10/17/2020 Potassium 4.2 10/17/2020 Platelet Count 278 10/17/2020 PT Sec 10.8 10/17/2020 APTT 28.7 10/17/2020 PT INR 1.0 10/17/2020 Creatinine 0.84 10/17/2020 . The patient is not a current smoker. NPO Status: adequate Monitoring plan: Standard ASA. Postoperative analgesic plan: parenteral or oral opioids and multimodal analgesia. Anesthetic Risks, Benefits, Alternatives, Personnel Discussed. Consent obtained from: patient.Patient / Surrogate agrees to blood products: yes DNR status not reviewed with patient and/or family prior to surgery. Significant changes in the patient condition since the History and Physical, not otherwise documented in primary service progress note: no. Potential Anesthesia issues that may suggest increased risk of complications or contraindication to planned procedure: none. Vitals Value Taken Time BP 137/84 10/24/20 1231 Pulse 79 10/24/20 1231 Resp 18 10/24/20 1231 Temp 36.8 ?C (98.2 ?F) 10/24/20 1231 SpO2 98 % 10/24/20 1231 Facility-Administered Medications as of 10/24/2020 Medication Dose Route Frequency - lidocaine 10 mg/mL (1 %) 1-2 mg injection (XYLOCAINE) 0.1-0.2 mL INTRADERMAL PRN - lactated ringers infusion 5-30 mL/hr INTRAVENOUS CONTINUOUS - heparin 5,000 Units injection 5,000 Units SUBCUTANEOUS Pre-Op Once - ceFAZolin iv piggyback 2 g in D5W (iso-osmotic) 100 mL (ANCEF) 2 g INTRAVENOUS Pre-Op Once - acetaminophen 1,000 mg tab(s) (TYLENOL) 1,000 mg ORAL ONCE - celecoxib 400 mg cap(s) (CeleBREX) 400 mg ORAL ONCE - gabapentin 100 mg cap(s) (NEURONTIN) 100 mg ORAL ONCE - scopolamine 1 mg over 3 days 1 Patch (TRANSDERM-SCOP) 1 Patch TRANSDERMAL q 72 HR And - [START ON 10/26/2020] scopolamine - REMOVE PATCH OTHER q 72 HR And - scopolamine - VERIFY patch OTHER q 8 H Outpatient Medications as of 10/24/2020 Medication Sig - topiramate (TOPAMAX) 50 mg tablet Take 50 mg by mouth twice daily. - FLUoxetine HCl (PROZAC) 40 mg capsule Take 40 mg by mouth once daily. - pantoprazole DR (PROTONIX) 40 mg tablet Take 40 mg by mouth once daily. - propranolol (INDERAL) 40 mg tablet Take 40 mg by mouth twice daily. - tiZANidine (ZANAFLEX) 4 mg tablet Take 4 mg by mouth every 6 hours as needed. - BUTALBITAL-ACETAMINOPHEN ORAL Take by mouth. I have interviewed and examined the patient. I have reviewed the medical record and/or the pre-anesthesia evaluation, pertinent labs, and test results. This contains updated information obtained within 48 hours of Surgery/Procedure. SIGNATURE: Colin Archer MD PATIENT NAME: Nica Estrada DATE: October 24, 2020 TIME: 1:18 PM CSN: [id number] [facility] NURSING PROGon 10-24-2020 NURSING PROG HNO ID: [id number] Author: Sridevi LauRn) Kong RN Service: Nursing Author Type: Registered Nurse Type: Nursing Progress Note Filed: 10/24/2020 6:56 PM Note Text: Nursing Progress Note Patient Name: Nica Estrada Patient Location: [place] [address] [address] Transfer Note: Patient transferred into room/unit PK325 in stable condition. Actions taken: No futher actions taken at this time. at bedside. Will continue to monitor and check with patient. This note was completed by: Sridevi Triana RN [facility] NURSING PROG HNO ID: [id number] Author: Gege LauRn) DEEPTHI Kenney Service: Nursing Author Type: Registered Nurse Type: Nursing Progress Note Filed: 10/24/2020 1:38 PM Note Text: PATIENT EDUCATION TOPIC: PROCEDURE / SURGERY: Pre-op Teaching: Protocols PATIENT NAME: Nica Estrada PATIENT LOCATION: [place]/ [facility] [place] [facility] TO LEARN COGNITIVE ABILITY: Alert and oriented MOTIVATION TO LEARN: Interested FAMILY SUPPORT: None - Unavailable/disinterested INSTRUCTION PROVIDED TO: Patient PATIENT LEARNS BEST BY: Individual Instruction FACTORS AFFECTING LEARNING: None PHYSICAL LIMITATIONS AFFECTING LEARNING: None LEARNING RESPONSE DIAGNOSIS: ADULT: Well Adult PATIENT/FAMILY RESPONSE: Verbalizes understanding of: PRE-PROCEDURE INSTRUCTIONS-Correct action to take to follow pre-procedure instructions METHOD OF INSTRUCTION: Individual instruction FOLLOW-UP PLAN: Complete - No need for follow-up INSTRUCTIONAL AIDS USED: NA SUPPLEMENTAL MATERIAL PROVIDED TO PATIENT: None REFERRAL (RECOMMENDATION): None Electronically Signed By: Gege Kenney RN [facility] OPERATIVE NOon 10-24-2020 OPERATIVE NO HNO ID: [id number] Author: Ena Mcginnis Service: General Surgery Author Type: Physician Type: Operative Report Filed: 10/26/2020 11:07 AM Note Text: [facility] - Operative Report NICA ESTRADA : 1985 AGE: 35. SEX: F PATIENT TYPE: I HOSP SVC: GENS LOCATION: [facility] ATTENDING PHYSICIAN: Ena Mcginnis MD CSN NUMBER: [id number] DATE OF SURGERY/PROCEDURE: 10/24/2020 INCISION/PROCEDURE START TIME: 2:28 PM INCISION CLOSE/PROCEDURE END TIME: 4:31 PM PREOPERATIVE DIAGNOSIS: Morbid obesity, BMI of 42. POSTOPERATIVE DIAGNOSIS: 1. Morbid obesity. 2. Hiatal hernia. SURGEON: Ena Mcginnis MD SECRETARIAL TEACHER: Presley Torrez MD. SURGERY/PROCEDURE: 1. Laparoscopic repair of hiatal hernia. 2. Laparoscopic Trevor-en-Y gastric bypass and intraoperative EGD and provoked leak test. 3. Bilateral TAP block using bupivacaine. ANESTHESIA: General endotracheal anesthesia. COMPLICATIONS: None. ESTIMATED BLOOD LOSS: Less than 10 mL. SPECIMENS: None. WOUND CLASS: B. INDICATION: Patient is a pleasant 35-year-old female with morbid obesity, who decided to undergo weight loss surgery. She was seen by our bariatric program and is cleared for surgery. Risks, benefits, and alternatives were explained in the preoperative clinic and the patient was scheduled for surgery. OPERATIVE FINDINGS: 1. The patient was noted to have small hiatal hernia. A posterior cruroplasty was performed to repair that. 2. An uncomplicated gastric bypass was performed. 3. Bilateral TAP block was performed at the end of the case. 4. Both the JJ defect and the Sweet defect were closed. DESCRIPTION OF PROCEDURE: The patient was identified and brought to the operating room, placed supine on the operating table. General anesthesia was induced. The abdomen was prepped and draped in a surgical fashion. A 5 mm left upper quadrant incision was made. Entry was gained to the abdomen using standard Optiview technique under direct vision. A 12 mm port was placed in the left supraumbilical region, a 12 and a 5 mm port was placed in the right side. A 5 mm epigastric incision was made. A Alejandrina retractor was placed. The patient was placed in steep head-up position. The pars flaccida was opened up. Dissection was taken down from the right sharri to the left sharri. The left sharri was dissected. The small hernia was reduced. Posterior dissection was performed in the retroesophageal window and a Reji drain was passed. It was used to retract the esophagus. The posterior cruroplasty was completed using 1 [id number] stitch using silk to tighten the sharri. Next, the descending left gastric vessels were transected using the LigaSure. Four firings of Endo-MADONNA purple load was used to create the pouch. The first and last firing was a 45 mm stapler. The patient was placed flat. The small bowel was transected 50 cm distal to ligament of Treitz. The Trevor limb was marked with a stay suture. The mesentery was transected using the LigaSure. 150 cm of Trevor limb was measured. A stay suture was used to connect the BP limb to the Trevor limb. Enterotomy was made and a single firing of Endo-MADONNA travis load was used to create the jejunojejunostomy. The common enterotomy channel was closed using a single firing of Endo-MADONNA travis load. A Brolin stitch was placed. The patient was placed in steep head-up position. A gastrotomy was made and the enterotomy was made, a single firing of Endo-MADONNA purple load was used to create a 30 mm gastrojejunostomy. The common enterotomy channel was closed using 2-0 PDS starting both from the right and the left side and tying the knot towards the middle. A leak test was performed. There was no evidence of any leaks, bleeds, kinks, obstructions, or other complications noted on direct endoscopy. The gastroscope was used to stent across anastomosis. Second layer was used to imbricate the entire staple line as well as the common enterotomy channel closure. Next, the patient was placed flat. The Sweet defect was closed with silk stitch. The JJ defect was closed using continuous running silk. The 12 mm port sites were closed using Vicryl. Skin was closed using Monocryl and SureClose. Patient tolerated the procedure well without complications. I was present and scrubbed in throughout the operation. Dr. Torrez assisted in the absence of qualified assistant professor surgical technology help. He created the pouch and created the jejunojejunostomy. Ena Mcginnis MD TA:[id number] /[id number] [facility] Confirm Blood Typeon 021 ABO/RH(D) Positive Normal [facility] Comment on above: Performed By: #### C ONABO ####[facility] [place], [place] [phone] HISTORY PHYSICALon HISTORY PHYSICAL HNO ID: [id number] Author: Amanda Shane (Pa) Service: ? Author Type: Physician Thread Singer Type: HANDP Filed: 10/17/2020 2:58 PM Note Text: HISTORY AND PHYSICAL EXAMINATION SERVICE DATE: 10/17/2020 SERVICE TIME: 2:42 PM PRIMARY CARE PHYSICIAN: Vernon Castano III, DO REASON FOR VISIT: Nica Estrada is a 35 year old female who is scheduled for Laparoscopic Gastric Restrictive Surg W/ Bypass AND Trevor-En-Y of Dr. Ena Mcginnis for consultation. My final recommendation will be communicated back to the requesting physician by way of shared medical record or letter. The patient has the following: ACTIVE PROBLEM LIST Left Ureteral Stone Left Lower Quadrant Pain Ureteral Stone With Hydronephrosis Alopecia Positive Juanita (Antinuclear Antibody) Fibromyalgia Hypertension Migraine Gerd (Gastroesophageal Reflux Disease) Morbid Obesity (Hcc) Iron Deficiency Anemia Melisa (Obstructive Sleep Apnea) Hyperlipemia Asthma Subjective CHIEF COMPLAINT: PACC HPI: 35 YO MO WF with a hx of MELISA, asthma, HTN, GERD, KAREN is here for PACC. She is having bariatric surgery, has been unable to maintain weight loss. PAST MEDICAL HISTORY Diagnosis Date - Anxiety - Asthma uses inhaler a few times a month - Depression Currently not treated - Fibromyalgia Zanaflex - Gastroesophageal reflux disease without esophagitis - GERD (gastroesophageal reflux disease) - Hyperlipemia - Hypertension - Iron deficiency anemia - Migraine - MELISA (obstructive sleep apnea) PAST SURGICAL HISTORY Procedure Laterality Date - >=3 x 2 - CHOLECYSTECTOMY 2007 - PAST SURGICAL HISTORY OF tendon surgery FAMILY HISTORY Problem Relation Age of Onset - Accidental Mother - No Known Problems Father - Obesity Brother - Cancer Maternal Grandmother - Hyperlipidemia Maternal Grandmother - Hypertension Maternal Grandmother - Cancer Maternal Grandfather - Cancer Paternal Grandmother - Heart Maternal Aunt unknown SOCIAL HISTORY: Social History Tobacco Use - Smoking status: Never Smoker - Smokeless tobacco: Never Used Substance Use Topics - Alcohol use: Yes Alcohol/week: 1.0 standard drinks Types: 1 Glasses of Wine (5oz) per week Comment: once a month, 1 drink - Drug use: Never Prior to Admission medications as of 10/17/20 1349 Medication Sig Last Dose Taking gabapentin (NEURONTIN) 100 mg capsule Take 1 capsule by mouth three times daily for 14 days. Taking Yes scopolamine (TRANSDERM-SCOP) patch 1.5 mg/72 hr (1 mg over 3 days) Apply 1 Patch as directed every 72 hours. Apply one patch behind the ear every 3 days Taking Yes ondansetron orally disintegrating (ZOFRAN ODT) 4 mg disintegrating tablet Take 1 tablet by mouth every 8 hours as needed for Nausea/Vomiting. Taking Yes pantoprazole DR (PROTONIX) 40 mg tablet Take 40 mg by mouth once daily. Taking Yes propranolol (INDERAL) 40 mg tablet Take 40 mg by mouth twice daily. Taking Yes tiZANidine (ZANAFLEX) 4 mg tablet Take 4 mg by mouth every 6 hours as needed. Taking Yes BUTALBITAL-ACETAMINOPHEN ORAL Take by mouth. Taking Yes omeprazole (PRILOSEC) 20 mg capsule Take 20 mg by mouth once daily. No medication comments found. ALLERGIES Allergen Reactions - Imitrex [Sumatripta* Other: See Comments nausea - Latex Other: See Comments Blisters REVIEW OF SYSTEMS: PAIN ASSESSMENT: General: No weight loss, malaise or fevers. Neuro: No history of TIA's, stroke, STOCK UNLOADER tumor, impaired sensorium, hemiplegia, paraplegia or quadraplegia. No neurological symptoms or problems. Respiratory: asthma, uses rescue about once every few weeks; no current resp sx. Had acute bronchitis last Fall, flared asthma for a while but is better now. Has environmental allergies Cardiovascular: No history of HTN requiring medication, no history of angina, CHF, GA, cardiac surgery or stents. Denies rest pain, gangrene or revascularization/amputation for PVD. No history of cardiovascular symptoms or problems. GI: Positive for GERD, no other GI sx. 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 : Denies, Patient's last menstrual period was 10/03/2020. Endocrine: prediabetes ? No other endo sx. Hematology: KAREN in the past . Oncology: No history of CA metastasis, chemo within 30 days, or radiotherapy within 90 days. Has not lost 10% of body wt in 6 months. No history of oncological symptoms or problems. Psych: Anxiety, Depression Musculoskeletal: muscle pain (fibromyalgia) Skin: Negative for lesions, rash and itching. Objective PHYSICAL EXAM: VITALS: BP 137/99 Pulse 71 Temp (Src) 98.6 (Oral) Resp 18 Ht 5' 0 (1.52m) Wt 214 lb (97.1kg) SpO2 96% LMP 10/03/2020 BMI 41.79 kg/(m2). General: Alert and oriented, No acute distress, Morbidly obese Skin: Normal color, no rash, no lesions. HEENT: EOM, pupils equal, round and reactive. Cardiovascular: slight gr I murmur; no JVD, g/r/c; RRR Lungs: Normal breath sounds, no wheezes or crackles. Abdomen: ND Extremities: No deformity, no edema or tenderness, no joint swelling or clubbing. Neurological: Normal cognition and motor skills. Pulses: pedal and radial pulses normal +2 Diagnostic tests reviewed for today's visit: Lab Value Units Date High Low HB No results within date range. HCT No results within date range. WBC No results within date range. PLT No results within date range. NA No results within date range. K No results within date range. GLUC No results within date range. BUN No results within date range. CREAT No results within date range. PTSEC No results within date range. INR No results within date range. APTT No results within date range. ALT No results within date range. AST No results within date range. TBILI No results within date range. TSH No results within date range. Lab Value Units Date High Low HCGQT No results within date range. UHCG No results within date range. HCG, BODY* No results within date range. Lab Value Units Date High Low ABORHD No results within date range. ABSCREEN No results within date range. Hemoglobin A1C (%) Date Value 03/01/2020 5.3 Most recent labs Most recent EKG: nonspecific ST changes. Most recent Echo: no significant issues Assessment/Plan (Z01.818) Preop examination (primary encounter diagnosis) (E66.01) Morbid obesity (HCC) (D50.8) Other iron deficiency anemia History; last CBC WNL. (G47.33) MELISA (obstructive sleep apnea) CPAP not prescribed. (E78.5) Hyperlipidemia, unspecified hyperlipidemia type Stable. Not on medicaiton. (J45.20) Mild intermittent asthma without complication Currently stable. (I10) Essential hypertension Elevated but accpetable for surgery; anxious today; controlled on medication (K21.9) Gastroesophageal reflux disease, unspecified whether esophagitis present Stable, controlled on medication METS: Do heavy work around the house, such as scrubbing floors, lifting or moving heavy furniture (8.00 METs) Patient denies any chest pain or undue shortness of breath with the above physical activity. DASI Score: ASA Class: 3 ANESTHESIA FINDINGS: Intubation History: No history of difficult intubation Significant Anesthesia Considerations: None Airway Exam: General: Morbid obesity Mallampati Score is CLASS II ULBT: Class I - Lower incisors can bite the upper lip above the raymundo line Neck: Normal appearance and function, Distance from hyoid to mentum during neck extension is at least 3 finger breaths Mouth: Normal tongue size and Mouth opening greater than 2 finger breaths Dentition: Intact Airway History: No abnormal airway history STOP BANG Score: MELISA does not use CPAP/BiPAP PLAN This patient is optimally prepared for surgery pending LABS. CONSULTS: Patient does not require consults for optimization at this time. The Following Tests/Procedures Have Been Initiated: preop lab orders in [facility] by surgeon Planned Anesthetic: General Instructions Given to Patient: Instructions located in the after visit summary. Patient given verbal and written preop instructions and voices comprehension and compliance. SIGNATURE: mAanda Shane PA-C PATIENT NAME: Nica Estrada DATE: October 17, 2020 TIME: 2:42 PM PAGER/CONTACT #: Normal [facility] Type and SCR (30D)on 021 ABO/RH(D) Positive Normal [facility] Comment on above: Performed By: #### T [id number] ####[facility] [place], [place] [id number] HOSPon 09-27-2020 [facility] Patient:Nica Estrada MRN: Height:5' 0 (1.524 m) Weight:214 lb (97.07 kg) Outpatient Medications as of 10/24/20: topiramate (TOPAMAX) 50 mg tablet FLUoxetine HCl (PROZAC) 40 mg capsule gabapentin (NEURONTIN) 100 mg capsule scopolamine (TRANSDERM-SCOP) patch 1.5 mg/72 hr (1 mg over 3 days) ondansetron orally disintegrating (ZOFRAN ODT) 4 mg disintegrating tablet pantoprazole DR (PROTONIX) 40 mg tablet propranolol (INDERAL) 40 mg tablet tiZANidine (ZANAFLEX) 4 mg tablet BUTALBITAL-ACETAMINOPHEN ORAL omeprazole (PRILOSEC) 20 mg capsule Admission/Clinic Administered Medications as of 10/24/20: lidocaine 10 mg/mL (1 %) 1-2 mg injection (XYLOCAINE) lactated ringers infusion heparin 5,000 Units injection ceFAZolin iv piggyback 2 g in D5W (iso-osmotic) 100 mL (ANCEF) scopolamine 1 mg over 3 days 1 Patch (TRANSDERM-SCOP) scopolamine - REMOVE PATCH scopolamine - VERIFY patch Problem List: Left ureteral stone [N20.1] Left lower quadrant pain [R10.32] Ureteral stone with hydronephrosis [N13.2] Alopecia [L65.9] Positive JUANITA (antinuclear antibody) [R76.8] Fibromyalgia [M79.7] Hypertension [I10] Migraine [G43.909] GERD (gastroesophageal reflux disease) [K21.9] Morbid obesity (HCC) [E66.01] Iron deficiency anemia [D50.9] MELISA (obstructive sleep apnea) [G47.33] Hyperlipemia [E78.5] Asthma [J45.909] Allergies: Imitrex [Sumatriptan] Latex Date Verified: 10/24/20 Lab Values Lab Value Units Date High Low POTA* 4.2 mmol/L 10/17/2020 5.1 3.7 MYLES* 44.1 % 10/17/2020 46.0 36.0 [facility] Marcella Saldana RN 10/13/2020 2:32 PM Signed BMI SPECIALTY CARE COORDINATION SURGERY PRE-OP EDUCATION NOTE AMBULATORY PATIENT EDUCATION NOTE TOPIC: SURVIVAL SKILLS: Symptom Management Wound Care Diet Pain Management- No Pre op Narcotic prescription provided; educated on alternative methods for pain relief and expectations on pain management tyree operatively READINESS TO LEARN COGNITIVE ABILITY: Alert and oriented MOTIVATION TO LEARN: Eager FAMILY SUPPORT: Unable to assess - Family not present INSTRUCTION PROVIDED TO: Patient PATIENT LEARNS BEST BY: Multiple Methods FACTORS AFFECTING LEARNING: None PHYSICAL LIMITATIONS AFFECTING LEARNING: None LEARNING RESPONSE DIAGNOSIS: obesity METHOD OF INSTRUCTION: Teach Back diet Group class instruction Written instruction - handouts Verbal instruction Video PATIENT / FAMILY RESPONSE: Verbalizes understanding of: INFECTION MANAGEMENT-Signs and symptoms of an infection and importance of contacting the physician MEDICAL REGIMEN-Importance of following prescribed medical regimen MEDICATION DOSE MISSED-Correct action to take if medication dose is missed MEDICATION PRESCRIBED-Accurate knowledge of prescribed medication prior to discharge MEDICATION ROUTE-Correct route for administration of the prescribed medication MEDICATION SIDE EFFECTS-Side effects associated with the medication that warrant a call to the physician PAIN MANAGEMENT-Effective strategies to manage pain in addition to pain medication POST-OPERATIVE INSTRUCTIONS-Correct actions to take to reduce postoperative complications PRE-OPERATIVE INSTRUCTIONS-Correct action to take to follow pre-operative instructions PATIENT SAFETY PRINCIPLES SYMPTOM MANAGEMENT-Correct actions to take to manage symptoms associated with his/her disease/illness VTE prevention measures WORSENING CONDITION-Signs and symptoms of a worsening condition that warrant a call to the physician WOUND CARE-Correct procedure to perform wound care Information received as demonstrated by interest and questions FOLLOW-UP PLAN: Complete - No need for follow-up SUPPLEMENTAL MATERIAL: Your Surgical Guide REFERRAL (RECOMMENDATION): None Surgery Pre-Op Education Note in Nurse Visit Education video modules viewed by the patient: Yes Postop prescriptions provided to the patient: Yes Postop Surgeon Visit scheduled: Yes On-Call AND Clinic Phone Number given to the Patient: Yes Pre surgery checklist reviewed: Yes Patient Instructions for the Liquid Diet: Day Before Surgery - Liquid Diet Instruction Review 1. Last Protein shake should be before 6 pm. 2. It is important that you stay hydrated - 64 ounces of fluid per day. 3. Drink a 28-32 ounce bottle of a regular (not sugar free) sport drink (Gatorade, Powerade, etc.) the night prior to surgery. If the sport drinks aren?t tolerable, may substitute with no sugar added - no pulp juice - apple, cranberry, lemonade, white grape or orange. Day of Surgery Clear Liquid Diet Drink 12-20 ounces of a regular sport drink (or juice as above) stop liquids 2 hours before scheduled arrival time. Other Instructions Reviewed: Skin Preparation: Hibiclens bottle AND instructions, Lidia, wound care, vitamin AND nutrients, activity restrictions post op, discharge instructions AND surgical guide, incentive spirometry;diet progression-jeanine phase I AND II AND 2wk liquid diet prior to surgery, activity level AND pt responsibility during hospitalization. Sleep Apnea: Even if you don't have the diagnosis of sleep apnea, the pain medicine you receive and your weight put you at risk for breathing complications and apnea after surgery. After your operation, RT will assess you in the recovery room and again on the mclaughlin. They will most likely ask you to wear a face mask that will deliver oxygen using some mild positive pressure. The machine will automatically adjust the amount of pressure you receive. Wearing the mask does not mean that you will need to go home with it or have the diagnosis of sleep apnea. It will only be used after surgery to maintain your oxygen levels. Do not take pain medication three hours before bedtime as it may cause breathing difficulty. If you are having pain at bedtime you may take two Extra Strength Tylenol. Marcella Saldana RN Progress Notes ([address]): Ena Mcginnis MD 10/13/2020 5:31 PM Signed SURGERY PREOPERATIVE VISIT NOTE Name: Nica Estrada Medical Record: [id number] Encounter No.: [id number] Niac Estrada is a 35 year old female seen in surgery clinic today for their final preoperative assessment. INTERVAL NOTE: Patient is here to discuss regarding surgery. She had a recent ER evaluation for abdominal pain, CT scan was unremarkable. 04/18/2020 EGD (Report Scanned) - LA Grade A esophagitis, hiatal narrowing/Z line/GE junction at 37cm - mild gastritis - few gastric body/fundus polyp; largest biopsied : chronic gastritis and foveolar hyperplasia; PPI induced changed History of abdominal surgeries: Yes cholecystectomy x 3 PLANNED PROCEDURE: Gastric bypass PAST MEDICAL HISTORY: PAST MEDICAL HISTORY Diagnosis Date - Anxiety - Asthma uses inhaler a few times a month - Depression Currently not treated - Fibromyalgia Zanaflex - GERD (gastroesophageal reflux disease) - Hyperlipemia - Hypertension - Migraine PAST SURGICAL HISTORY: PAST SURGICAL HISTORY Procedure Laterality Date - >=3 x 2 - CHOLECYSTECTOMY 2007 - PAST SURGICAL HISTORY OF tendon surgery SOCIAL HISTORY: Social History Tobacco Use - Smoking status: Never Smoker - Smokeless tobacco: Never Used Substance Use Topics - Alcohol use: Yes - Drug use: Not on file ALLERGIES: ALLERGIES Allergen Reactions - Imitrex [Sumatripta* Other: See Comments nausea - Latex Other: See Comments MEDICATIONS: Prior to Admission Medications: perflutren lipid microspheres (DEFINITY) 1.1 mg/mL injection (to be provided with echo procedure) Inject 1.3 mL intravenously as directed. Administration Instructions: If no IV access, insert saline lock prior to administering contrast. Discontinue saline lock post exam. If patient has central line or IVAD, may access for administration according to line specific nursing protocol. Once exam is complete, flush line and de-access per line specific nursing protocol. Diluted IV Bolus: Dilute 1.3 ml of Definity with 8.7 ml of preservative-free saline pantoprazole DR (PROTONIX) 40 mg tablet Take 40 mg by mouth once daily. topiramate (TOPAMAX) 25 mg tablet propranolol (INDERAL) 40 mg tablet Take 40 mg by mouth twice daily. tiZANidine (ZANAFLEX) 4 mg tablet Take 4 mg by mouth every 6 hours as needed. omeprazole (PRILOSEC) 20 mg capsule Take 20 mg by mouth once daily. BUTALBITAL-ACETAMINOPHEN ORAL Take by mouth. topiramate (TOPAMAX) 100 mg tablet Take 100 mg by mouth twice daily. @IPMED@ VISIT NOTE This patient was seen in clinic today to obtain informed consent, to discuss the details of their upcoming operation including the appropriate expectations for perioperative and postoperative care. In addition, preoperative and postoperative relevant prescriptions were provided and explained during this clinic visit. Based on co morbidities, age and gender, DVT risk is 0.2%. ERAS protocol discussed . Narcotics sparing postop recovery discussed . The consent discussion included the risks, benefits and anticipated outcomes of the procedure, the risks and benefits of the alternatives to the procedure, and the roles and tasks of the personnel to be involved. Patient is scheduled for laparoscopic possible open Roun-en-Y gastric bypass, possible liver biopsy, and intraoperative EGD. I have discussed the risks of surgery including infection, bleeding including injury to the spleen, the mesenteric blood vessels, conversion in the open, postoperative leak requiring stenting, reoperation, resection or repair, stricture requiring dilation or revision, marginal ulcer requiring treatment including reoperation, and incisional hernias. I have also discussed the long-term and short-term risks of internal hernias and complications related to it. I have discussed regarding unsatisfactory weight loss as well as usp weight regain. I have also discussed medical complications including urinary tract infections, myocardial infarction, DVT, PE, prolonged ICU stay, and possible postoperative mechanical ventilation and the risk of mortality. I have discussed in detail regarding postoperative hospital stay as well as recovery. Due to the Covid-19 pandemic our surgical cases had been delayed/postponed or entirely cancelled. At this point in time elective surgical cases are being restarted based on recommendations of the Governor of the [facility]. Although we will perform appropriate precautions to minimize patient exposure and risk, by undergoing surgery during the Covid-19 pandemic, the patient understands and accepts the unpredictable nature of the Covid-19 virus and the possibility of risks specific to the Covid-19 virus including but not limited to pneumonia, respiratory failure, sepsis, blood clots in different organs, heart attack, stroke, multiple organ failure, and . All of these risk factors are especially heightened in patients with obesity. The patient understands and accepts these risks prior to proceeding with surgery. The patient had an opportunity to ask additional questions that were answered. The patient expressed that they understood. A consent form was signed today. Prescriptions were explained and provided to the patient. Ena Mcginnis MD Previous Version Normal [facility] HEPATITIS B SURFACE AB IMMUN ITY, QNon 08-11-2020 HEPATITIS B SURFACE AB IMMUNITY, QN >1000 Normal > OR = 10 [facility] Comment on above: Result Comment: Patient has immunity to hepatitis B virus. For additional information, please refer to http://education.QuickPay.Hyginex/faq/KOJ470 (This link is being provided for informational/ educational purposes only). Performed By: #### [id number] #### [facility]-[address], [address] [place] [id number] [employer] Fitter: Sixto Chandler MD Vital Signs Date Time Vital Sign Value Performing Clinician Facility 10-16-2022 12:53-0500 Diastolic blood pressure 80 mm[Hg] Otis Burch [facility] 10-16-2022 12:53-0500 Heart rate 55 /min Otis Burch [facility] 10-16-2022 12:53-0500 Mean blood pressure 89 mm[Hg] Otis Burch [facility] 10-16-2022 12:53-0500 Respiratory rate 18 /min Otis Marcin [facility] 10-16-2022 12:53-0500 Systolic blood pressure 108 mm[Hg] Otis Marcin [facility] 08-28-2022 08:52-0500 Heart rate 70 /min Otis Marcin [facility] 08-28-2022 08:52-0500 SaO2% (BldA) [Mass fraction] 100 % Otis Marcin [facility] 08-28-2022 08:52-0500 Respiratory rate 16 /min Otis Marcin [facility] 08-28-2022 08:52-0500 Diastolic blood pressure 80 mm[Hg] Otis Marcin [facility] 08-28-2022 08:52-0500 Mean blood pressure 93 mm[Hg] Otis Marcin [facility] 08-28-2022 08:52-0500 Systolic blood pressure 121 mm[Hg] Otis Marcin [facility] 08-28-2022 08:46-0500 Heart rate 70 /min Otis Marcin [facility] 08-28-2022 08:46-0500 SaO2% (BldA) [Mass fraction] 100 % Otis Marcin [facility] 08-28-2022 08:46-0500 Body temperature 97.52 [degF] Otis Marcin [facility] 08-28-2022 08:46-0500 Diastolic blood pressure 69 mm[Hg] Otis Marcin [facility] 08-28-2022 08:46-0500 Mean blood pressure 80 mm[Hg] Otis Marcin [facility] 08-28-2022 08:46-0500 Systolic blood pressure 104 mm[Hg] Otis Marcin [facility] 08-28-2022 08:46-0500 Respiratory rate 16 /min Otis Marcin [facility] 08-28-2022 08:41-0500 Diastolic blood pressure 64 mm[Hg] Otis Marcin [facility] 08-28-2022 08:41-0500 Systolic blood pressure 102 mm[Hg] Otis Marcin [facility] 08-28-2022 08:40-0500 Heart rate 71 /min Otis Marcin [facility] 08-28-2022 08:40-0500 Respiratory rate 12 /min Otis Marcin [facility] 08-28-2022 08:40-0500 SaO2% (BldA) [Mass fraction] 100 % Otis Marcin [facility] 08-28-2022 08:35-0500 Respiratory rate 12 /min Otis Marcin [facility] 08-28-2022 08:30-0500 Respiratory rate 12 /min Otis Marcin [facility] 08-28-2022 07:17-0500 Mean blood pressure 78 mm[Hg] Otis Marcin [facility] 08-28-2022 07:17-0500 Respiratory rate 16 /min Otis Marcin [facility] 08-28-2022 07:17-0500 Body temperature 98.24 [degF] Otis Marcin [facility] 04-12-2022 14:47-0400 Body height 152.4 cm Lazara Woods MD Work Phone: [facility] 04-12-2022 14:47-0400 Body temperature 98.91 [degF] Lazara Woods MD Work Phone: [facility] 04-12-2022 14:47-0400 Body weight 55.52 kg Lazara Woods MD Work Phone: [facility] 04-12-2022 14:47-0400 Diastolic blood pressure 92 mm[Hg] Lazara Woods MD Work Phone: [facility] 04-12-2022 14:47-0400 Heart rate 65 /min Lazara Woods MD Work Phone: [facility] 04-12-2022 14:47-0400 Systolic blood pressure 140 mm[Hg] Lazara Woods MD Work Phone: [facility] 03-01-2022 14:59-0400 Diastolic blood pressure 86 mm[Hg] Mixon SALAM [facility] 03-01-2022 14:59-0400 Heart rate 52 /min Mixon SALAM [facility] 03-01-2022 14:59-0400 Systolic blood pressure 130 mm[Hg] Mixon SALAM [facility] Encounters Encounter Date Encounter Type Care Provider Facility Start: 04-29-2023 End: 04-30-2023 ambulatory Aaliyah Hampton MD Facility:[facility] Start: 04-15-2023 End: 04-16-2023 ambulatory Aaliyah Hampton MD Facility:[facility] Start: 04-01-2023 End: 04-02-2023 ambulatory Aaliyah Hampton MD Facility:[facility] Start: 03-25-2023 End: 03-26-2023 ambulatory Aaliyah Hampton MD Facility:[facility] Start: 10-16-2022 End: 10-17-2022 ambulatory Otis Burch Facility:[facility] Start: 10-16-2022 End: 10-16-2022 Pain Management Otis Burch [facility] Start: 08-28-2022 End: 08-29-2022 ambulatory Otis Burch Facility:[facility] Start: 08-28-2022 End: 08-28-2022 Pain Management Otis Burch [facility] Start: 05-04-2022 End: 05-05-[address] DOCTOR BEAR Facility:[facility] Start: 04-20-2022 End: 04-20-2022 ambulatory ANGELA FUNG Facility:[facility] Start: 04-12-2022 End: 04-12-2022 Patient encounter procedure Lazara Woods MD Work Phone: Plastic Surgery Comment on above: Hx of bariatric surg renee (Primary Dx); Excess skin Start: 04-12-2022 Chart abstracting Lazara Woods MD Work Phone: Plastic Surgery Comment on above: PHOTOS TAKEN Start: 04-09-2022 End: 04-09-[address] SHALOM WAGNER Facility:[facility] Start: 04-06-2022 End: 04-06-2022 ambulatory ANGELA FUNG Facility:[facility] Start: 03-23-2022 End: 03-24-2022 ambulatory ANGELA FUNG Facility:[facility] Start: 03-01-2022 End: 03-02-2022 ambulatory Oral DIETZ Facility:[facility] Start: 03-01-2022 End: 03-01-2022 Patient encounter procedure Oral DIETZ [facility] Start: 11-10-2021 End: 11-11-2021 ambulatory PETEY BURNETT Facility:[facility] Start: 05-24-2021 End: 06-28-[address] DOCTOR BEAR Facility:[facility] Procedures Date Procedure Procedure Detail Performing Clinician Start: 08-28-2022 Radiofrequency ablation of medial branch of lumbar nerve using fluoroscopic guidance Otis Burch Comment on above: L4/5 +L5/S1 40-50% relief Start: 10-17-2020 Antibody screen Comment on above: Performed By: #### [id number] ####[facility] [id number] [place] [phone] Start: 05-09-2020 Adult depression screening assessment Lazara Woods MD Work Phone: Start: 04-18-2020 Colonoscopy Mixonkaylynn DIETZ Start: 04-18-2020 Esophagogastroduodenoscopy [facility]ixon [employer] section [facility]ixon [employer] Cholecystectomy Mixon [employer] Plan of Treatment Date Care Activity Detail Author Start: 05-17-2022 Influenza vaccination INFLUENZA (#1) [facility] Start: 05-09-2021 Adult depression screening assessment DEPRESSION SCREENING [facility] Start: 04-10-2021 COVID-19 VACCINE (3 - Booster for Moderna series) COVID-19 VACCINE (3 - Booster for Moderna series) [facility] Start: 2013 HPV TESTING HPV TESTING [facility] Start: 02-22-2004 PAP TESTING PAP TESTING [facility] Start: 2002 Urine microalbumin profile DTAP,TDAP,TD (1 - Tdap) [facility] Start: 2001 ANNUAL PCP TEAM BACKEND TESTER 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 VISIT ANNUAL PCP TEAM CHRONIC DISEASE VISIT [facility] Start: 2001 BP CONTROLLED (<130/80) BP CONTROLLE D (<130/80) [facility] Start: 2001 HEPATITIS C SCREENING HEPATITIS C SC RAPHAEL [facility] Start: 2001 HIV SCREENING HIV SCREENING [facility] Start: 2001 SPIROMETRY SPIROMETRY [facility] Start: 1989 PNEUMOCOCCAL (1 - PCV) PNEUMOCOCCAL (1 - PCV) [facility] Immunizations Immunization Date Immunization Notes Care Provider Trudy gay 09-28-2020 COVID-19 vaccine, fu ll dose (MODERNA) Lazara Woods MD Work Phone: [facility] 07-01-2020 influenza, injectabl e, quadrivalent, preservative free Lazara Woods MD Work Phone: [facility] 06-17-2020 influenza virus vacc ine, unspecified formulation Lazara Woods MD Work Phone: [facility] Payers Date Payer Category Payer Private Health Insurance 2022 Medicaid 2022 Unknown 2022 Unknown [id number] 2018 Medicaid UHC MEDICAID UHC [employer] MEDICAID [id number] 2018-Present [phone] [address] [place] [address] Medicaid [id number] 1983 Unknown [id number] 2.840.1.779076.3.579.2. 59 1983 Unknown [id number] 2.0.1.849411.3.579.2. 59 1983 Unknown [id number] 2.840.1.608434.3.579.2. 59 1983 Unknown [id number] 2.840.1.718261.3.579.2. 59 1983 Unknown [id number] 2.840.1.718156.3.579.2. 59 1983 Unknown [id number] 2.840.1.747784.3.579.2. 593 1983 Unknown [id number] 2.840.1.315810.3.579.2. 593 1983 Unknown [id number] 2.16.840.1.907941.3.579.2. 727 1983 Unknown [id number] 2.16.840.1.520413.3.579.2. 727 1983 Unknown [id number] 2.16.840.1.759875.3.579.2. 727 1983 Unknown [id number] 2.16.840.1.127879.3.579.2. 727 1983 Unknown [id number] 2.16.840.1.228676.3.579.2. 196 1983 Unknown [id number] 2.16.840.1.804578.3.579.2. 196 1983 Unknown [id number] 2.16.840.1.535447.3.579.2. 196 1983 Unknown [id number] 2.16.840.1.392401.3.579.2. 196 1959 Unknown [id number] Social History Date Type Detail Facility Start: 06-27-2017 End: 03-01-2022 Tobacco smoking status Never smoked tobacco (finding) [facility] Tobacco smoking status Never [facility] Sex Assigned At Female [facility] Start: 06-27-2017 Tobacco use and exposure Smokeless tobacco non-user [facility] Start: 04-12-2022 Alcohol intake Current drinke r of alcohol (finding) [facility] Start: 04-12-2022 Alcohol intake [facility] Start: 01-05-2020 History SDOH Alcohol Frequency 3 [facility] Start: 01-05-2020 History SDOH Alcohol Std Drinks 1 [facility] Start: 10-17-2020 History SDOH Alcohol Comment once a month, 1 drink [facility] Start: 1983 Sex Assigned At Not on file [facility] Start: 04-01-2022 End: 04-11-2022 Exposure to SARS-CoV-2 (event) Not sure [facility] Functional Status Date Assessment Result Facility 10-16-2022 Functional Status N/A [facility] 08-28-2022 Functional Status N/A [facility] Clinical Notes 05-04-2020 to 10-16-2022 Note Date & Type Note Facility 10-16-2022 Evaluation + Plan note Extrac andres from: Title:FUV Author:Otis Burch MD Date :10/16/22 Impression and Plan 37-year-old female history of lumbar spondylosis and degenerative disc disease following up for radiofrequency ablation to the L4-5 and L5-S1 facet joints. The patient is doing quite well. She has at least a 50% improvement of her pain as well as function. She is back doing her normal activities without much impediment. The patient is currently satisfied with the degree of relief she is experiencing. I educated the patient on her condition. I advised the patient to continue her home exercise program. I advised the patient to follow-up with us as needed and to call with any questions or concerns. Patient agrees with plan of care. [facility]12-13-2022 Note [id number]:127[facility] 04-12-2022 NoteHNO ID: [id number] Author: ST Rick Service: ? 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 Author Type: Physician Type: Progress Notes Filed: 04/12/2022 4:01 PM Note Text: Plastic Surgery Note CC: Consult for Panniculectomy HPI: Nica is a 37 year old female here today to discuss excess abdominal skin and fat after massive weight loss. Patient is s/p Trevor-en-Y gastric bypass on 10/24/2020 Patient is not happy with the amount of hanging skin she has and would like to discuss removal. Date of bariatric surgery (more than 18 months): 10/26/2020 Highest weight: 267 Current weight: 122 Weight loss of 100 lbs or more: Yes, 145lbs Patients weight has been stable for 6 months. The patient does complain of recurrent rashes, intertrigo with dermatitis occuring on the opposed surface of the skin that has not responded to conventional treatment for a period of 3 months. Treatments tried: Cream: Nystatin and Powder: Nystatin and OTC The patient does not have a history of infection. Panniculus causes interference with activities of daily living: Yes, at work the extra skin will get pinched in boxes and caught by her dogs at home. Unable to find a bra that fits. Self esteem has improved since bypass, but still does not like to look at herself in the mirror when her skin is exposed. Trouble with clothes fitting properly: Yes, nothing fits properly History of abdominal hernia Yes, Laparoscopic repair of hiatal hernia. History of abdominal surgery: 2 casserian sections, cholecystectomy, and gastric bypass REVIEW OF SYSTEMS All negative except for: GENERAL: []weight loss []malaise []fevers HEENT: []frequent or significant headaches []changes in hearing []change in vision []nose bleeds []other nasal problems NECK: []lumps []goiter []pain and significant neck swelling RESPIRATORY: []cough []hemoptysis []wheezing []COPD []dyspnea []shortness of breath CARDIOVASCULAR: []chest pain []leg swelling []hypertension []CHF []palpitations GI: []nausea []vomiting []diarrhea MUSCULOSKELETAL: [] joint pain or swelling [] back pain []muscle pain SKIN: [] skin lesions []rash []itching PSYCH: []sleep disturbance []mood disorder []recent psychosocial stressors HEMATOLOGY/LYMPHOLOGY: []prolonged bleeding []bruising easily []swollen nodes ENDOCRINE: []cold intolerance []heat intolerance []polyuria []polydipsia []goiter [] Diabetes History of DVT/PE: No History of Recurrent Miscarriages: No Objective: BP 140/92 Pulse 65 Temp 37.2 ?C (98.9 ?F) Ht 152.4 cm (5') Wt 55.5 kg (122 lb 6.4 oz) LMP 01/09/2021 (Approximate) BMI 23.90 kg/m? PAST MEDICAL HISTORY Diagnosis Date - Anxiety - Asthma uses inhaler a few times a month - Depression Currently not treated - Fibromyalgia Zanaflex - Gastroesophageal reflux disease without esophagitis - GERD (gastroesophageal reflux disease) - Hyperlipemia - Hypertension - Iron deficiency anemia - Migraine - MELISA (obstructive sleep apnea) PAST SURGICAL HISTORY Procedure Laterality Date - >=3 x 2 - CHOLECYSTECTOMY 2007 - PAST SURGICAL HISTORY OF tendon surgery Current Outpatient Medications Medication Sig Dispense Refill - baclofen (LIORESAL) 10 mg tablet Take 10 mg by mouth as directed. - fexofenadine (RODY ALLERGY) 180 mg tablet Take 180 mg by mouth once daily. - biotin 5,000 mcg ODT Take by mouth. - cyanocobalamin (VITAMIN B-12) 1,000 mcg tab Take 1,000 mcg by mouth once daily. - Lactobacillus acidophilus (PROBIOTIC ORAL) Take by mouth. - multivit-min/iron/folic acid/K (BARIATRIC MULTIVITAMINS ORAL) Take by mouth. - clotrimazole (ALEVAZOL TOPICAL) Apply to affected area. - dicyclomine HCl (BENTYL ORAL) Take by mouth. - alprazolam (XANAX ORAL) Take by mouth. - propranolol ER (INDERAL LA) 120 mg 24 hr capsule Take 120 mg by mouth once daily. - verapamil SR (CALAN SR, ISOPTIN SR) 120 mg CR tablet Take 1 tablet by mouth once daily. - NURTEC ODT 75 mg disintegrating tablet Take 1 tablet by mouth PRN(NO DISPENSE) for Migraine Headache (see administration instructions). - nystatin (MYCOSTATIN) powder Apply to affected skin up to 4 times per day 60 g 2 - cetirizine (ZYRTEC) 10 mg tablet Take 10 mg by mouth once daily. - topiramate (TOPAMAX) 50 mg tablet Take 50 mg by mouth twice daily. - FLUoxetine (PROZAC) 10 mg capsule Take 10 mg by mouth once daily. - ondansetron orally disintegrating (ZOFRAN ODT) 4 mg disintegrating tablet Take 1 tablet by mouth every 8 hours as needed for Nausea/Vomiting. 30 tablet 1 - pantoprazole DR (PROTONIX) 40 mg tablet Take 40 mg by mouth once daily. - gabapentin (NEURONTIN) 100 mg capsule Take 1 capsule by mouth three times daily for 14 days. 42 capsule 0 - scopolamine (TRANSDERM-SCOP) patch 1.5 mg/72 hr (1 mg over 3 days) Apply 1 Patch as directed every 72 hours. Apply one patch behind the ear every 3 days 5 Patch 1 No current facility-administered medications for this visit. ALLERGIES A (more content not included)...[facility] History of Present illness Narrative* Lazara Woods MD - 04/11/2022 2:37 PM EDT Plastic Surgery Note CC: Consult for Panniculectomy HPI: Nica is a 37 year old female here today to discuss excess abdominal skin and fat after massive weight loss. Patient is s/p Trevor-en-Y gastric bypass on 10/24/2020 Patient is not happy with the amount of hanging skin she has and would like to discuss removal. Date of bariatric surgery (more than 18 months): 10/26/2020 Highest weight: 267 Current weight: 122 Weight loss of 100 lbs or more: Yes, 145lbs Patients weight has been stable for 6 months. The patient does complain of recurrent rashes, intertrigo with dermatitis occuring on the opposed surface of the skin that has not responded to conventional treatment for a period of 3 months. Treatments tried: Cream: Nystatin and Powder: Nystatin and OTC The patient does not have a history of infection. Panniculus causes interference with activities of daily living: Yes, at work the extra skin will get pinched in boxes and caught by her dogs at home. Unable to find a bra that fits. Self esteem has improved since bypass, but still does not like to look at herself in the mirror when her skin is exposed. Trouble with clothes fitting properly: Yes, nothing fits properly History of abdominal hernia Yes, Laparoscopic repair of hiatal hernia. History of abdominal surgery: 2 casserian sections, cholecystectomy, and gastric bypass REVIEW OF SYSTEMS All negative except for: GENERAL: []weight loss []malaise []fevers HEENT: []frequent or significant headaches []changes in hearing []change in vision []nose bleeds []other nasal problems NECK: []lumps []goiter []pain and significant neck swelling RESPIRATORY: []cough []hemoptysis []wheezing []COPD []dyspnea []shortness of breath CARDIOVASCULAR: []chest pain []leg swelling []hypertension []CHF []palpitations GI: []nausea []vomiting []diarrhea MUSCULOSKELETAL: [] joint pain or swelling [] back pain []muscle pain SKIN: [] skin lesions []rash []itching PSYCH: []sleep disturbance []mood disorder []recent psychosocial stressors HEMATOLOGY/LYMPHOLOGY: []prolonged bleeding []bruising easily []swollen nodes ENDOCRINE: []cold intolerance []heat intolerance []polyuria []polydipsia []goiter [] Diabetes History of DVT/PE: No History of Recurrent Miscarriages: No Objective: BP 140/92 Pulse 65 Temp 37.2 C (98.9 F) Ht 152.4 cm (5') Wt 55.5 kg (122 lb 6.4 oz) LMP 01/09/2021 (Approximate) BMI 23.90 kg/m PAST MEDICAL HISTORY Diagnosis Date Anxiety Asthma uses inhaler a few times a month Depression Currently not treated Fibromyalgia Zanaflex Gastroesophageal reflux disease without esophagitis GERD (gastroesophageal reflux disease) Hyperlipemia Hypertension Iron deficiency anemia Migraine MELISA (obstructive sleep apnea) PAST SURGICAL HISTORY Procedure Laterality Date >=3 x 2 CHOLECYSTECTOMY 2007 PAST SURGICAL HISTORY OF tendon surgery Current Outpatient Medications Medication Sig Dispense Refill baclofen (LIORESAL) 10 mg tablet Take 10 mg by mouth as directed. fexofenadine (RODY ALLERGY) 180 mg tablet Take 180 mg by mouth once daily. biotin 5,000 mcg ODT Take by mouth. cyanocobalamin (VITAMIN B-12) 1,000 mcg tab Take 1,000 mcg by mouth once daily. Lactobacillus acidophilus (PROBIOTIC ORAL) Take by mouth. multivit-min/iron/folic acid/K (BARIATRIC MULTIVITAMINS ORAL) Take by mouth. clotrimazole (ALEVAZOL TOPICAL) Apply to affected area. dicyclomine HCl (BENTYL ORAL) Take by mouth. alprazolam (XANAX ORAL) Take by mouth. propranolol ER (INDERAL LA) 120 mg 24 hr capsule Take 120 mg by mouth once daily. verapamil SR (CALAN SR, ISOPTIN SR) 120 mg CR tablet Take 1 tablet by mouth once daily. NURTEC ODT 75 mg disintegrating tablet Take 1 tablet by mouth PRN(NO DISPENSE) for Migraine Headache (see administration instructions). nystatin (MYCOSTATIN) powder Apply to affected skin up to 4 times per day 60 g 2 cetirizine (ZYRTEC) 10 mg tablet Take 10 mg by mouth once daily. topiramate (TOPAMAX) 50 mg tablet Take 50 mg by mouth twice daily. FLUoxetine (PROZAC) 10 mg capsule Take 10 mg by mouth once daily. ondansetron orally disintegrating (ZOFRAN ODT) 4 mg disintegrating tablet Take 1 tablet by mouth every 8 hours as needed for Nausea/Vomiting. [address] (PROTONIX) 40 mg tablet Take 40 mg by mouth once daily. gabapentin (NEURONTIN) 100 mg capsule Take 1 capsule by mouth three times daily for 14 days. 42 capsule 0 scopolamine (TRANSDERM-SCOP) patch 1.5 mg/72 hr (1 mg over 3 days) Apply 1 Patch as directed every 72 hours. Apply one patch behind the ear every 3 days 5 Patch 1 No current facility-administered medications for this visit. ALLERGIES Allergen Reactions Imitrex [Sumatripta* Other: See Comments nausea Latex Other: See Comments Blisters OB HISTORY: Para: 2 : Patient did not breastfeed Plan for future pregnancies: No Physical Exam: A&Ox3, NAD Abdominal Exam: soft, non-tender, and non-distended Evidence of Hernia: No Excess abdominal skin and fat: hangs 4cm Panniculus hangs below symphysis pubis: Yes, 4 cm Breasts SN to Nipple: L-23.5 R-24 IMF to Nipple: L-8.5 R-8.5 Width: L-14 R-15 Arms: 2 cm of excess tissue on arms with striae Thighs: medial thigh laxity and striae. 4.5cm excess A/P: Nica is a 37 year old female w/ history of significant weight loss following bariatric surgery, symptomatic abdominal panniculus. Patient is a candidate for a panniculectomy, could reasonably improve the physical functional impairment. The risks, benefits and options were discussed with the ptatient The risks included but not limitedto pain, bleeding, infection, heavy scarring, damage to surrounding structures, fluid collections, asymmetry, and need for further procedures. Photographs have been taken and will be sent to the insurance company as necessary. Follow up in 6 weeks The patient is seen and examined by Dr. Woods and the following reflects her service. Scribed by Svitlana Gardner RN and Julianne Tyler RN I agree with the Chief Complaint, ROS, and Past Histories independently gathered by the clinical customer support specialist and the remaining scribed note accurately describes my personal service to the patient. 30 Minutes total visit spent face to face with patient. Greater than 50% of the time was spent for counseling and coordination of care, discussing treatment options and recommendations. She has redundant tissue in the arms, breasts, abdomen and thighs. She is a good candidate for transverse panniculectomy. We will submit to insurance and see her back in 6 weeks. Lazara Woods MD [facility] Evaluation + Plan note Diagnostic Tests Pending * Copper Level 03/01/22 * Vitamin A Level 03/01/22 * Vitamin B1 03/01/22 * Vitamin B6 Lvl 03/01/22 * Vitamin E Level 03/01/22 * Zinc Level 03/01/22 Future Scheduled Tests Laboratory* Copper Level 04/25/21 * Zinc Level 04/25/21 * Vitamin A Level 04/25/21 * Vitamin B1 04/25/21 * Vitamin B6 Lvl 04/25/21 * Vitamin D 25 Hydroxy 04/25/21 * Ferritin 04/25/21 * Folate Level 04/25/21 * Iron Level 04/25/21 * Magnesium Level 04/25/21 * Vitamin B12 Level 04/25/21 [facility]02-25-2022 NoteHNO ID: [id number] Author: Ena Mcginnis MD Service: ? Author Type: Physician Type: Progress Notes Filed: 11/13/2021 5:34 PM Note Text: Assessment BMI Established Visit Patient seen for 1 year follow up. Surgery: Laparoscopic Trevor-en-Y gastric bypass/repair of HH Date of Surgery:?10/24/2020 ? 12/16/2020 s/p EGD: GJ stenosis, dilated Patient feels excellent. Diet: Tolerating everything. Sugar: Avoiding Dumping syndrome/symptoms: No Abdominal pain: No Nausea or vomiting: No Reflux: No Gallbladder symptoms: No Symptoms of vitamin deficiency: No Multivitamins and supplements: Taking all recommended vitamin/minerals including daily multivitamin complete, VIt D3 3,000 IU, Vit B12 500 mcg, Iron 45-60 mg and calcium citrate 0306-9880 mg/day PHYSICAL EXAMINATION: Weight loss: BMI 23.2 - 118 lbs today BMI 26.3 - 135 lbs?06/15/2021 BMI?32.0?- 164?lbs 02/09/2021 BMI 36.2 - 192 lbs 11/24/2020 BMI?38.1?- 195?lbs?11/17/2020 BMI?39.8?- 204?lbs?11/01/2020 BMI?41.7?- 214?lbs pre operative BP 117/79 Pulse (!) 56 Temp 36.1 ?C (97 ?F) Resp 16 Wt 53.9 kg (118 lb 12.8 oz) LMP 01/09/2021 (Approximate) SpO2 100% BMI 23.20 kg/m? General appearance: Well appearing, alert, in no acute distress, well-hydrated, well nourished. Skin: Skin color, texture, turgor normal, no suspicious rashes or lesions Head: Normocephalic, no masses, lesions, tenderness or abnormalities Eyes: Anicteric sclera. Pupils are equally round and reactive to light. Extraocular movements are intact. Nose/Sinuses: Nares normal, septum midline, mucosa normal, no drainage or sinus tenderness Oropharynx: Lips, mucosa, and tongue normal, teeth and gums normal, oropharynx normal Neck: Supple, no adenopathy; thyroid symmetric, normal size, no bruits Abdomen: Normal abdominal exam, Abdomen soft, non-tender.No masses, organomegaly Extremities: No deformities, edema, skin discoloration, clubbing or cyanosis. Good capillary refill. Musculoskeletal: No joint swelling, deformity, or tenderness Peripheral pulses: Normal Neuro: Gait normal. Impression: Status post laparoscopic gastric bypass Plan: ? Doing great ? EGD Ena Mcginnis [facility]09-30-2021 NoteHNO ID: [id number] Author: Ena Mcginnis MD Service: ? Author Type: Physician Type: Progress Notes Filed: 06/15/2021 5:05 PM Note Text: BMI Established Visit ? Patient seen in follow up?after EGD? Surgery: Laparoscopic Trevor-en-Y gastric bypass/repair of HH Date of Surgery:?10/24/2020 ? 12/16/2020 s/p EGD: GJ stenosis, dilated ? Patient feels excellent. ? Diet: Tolerating everything. Sugar: Avoiding Dumping syndrome/symptoms: No Abdominal pain: No Nausea or vomiting: No Reflux: No. On Protonix 40 mg once a day Gallbladder symptoms: No Symptoms of vitamin deficiency: No ? Multivitamins and supplements: Taking all recommended vitamin/minerals including daily multivitamin complete, VIt D3 3,000 IU, Vit B12 ?500 mcg, Iron 45-60 mg and calcium citrate 1058-5290 mg/day ? COMPLETE REVIEW OF SYSTEMS Constitutional--Negative for fevers, chills, fatigue. Cardiovascular--Negative for orthopnea, PND Gastrointestinal--See HPI Pulmonary--Negative for intermittent dyspnea cough or hemoptysis : No history of dysuria, frequency or incontinence A complete review of systems was otherwise negative ? PHYSICAL EXAMINATION: ? Weight loss: BMI 26.3 - 135 lbs 06/15/2021 BMI?32.0?- 164?lbs 02/09/2021 BMI 36.2 - 192 lbs 11/24/2020 BMI?38.1?- 195?lbs?11/17/2020 BMI?39.8?- 204?lbs?11/01/2020 BMI?41.7?- 214?lbs pre operative ? LMP 01/09/2021 (Approximate) General appearance: Well appearing, alert, in no acute distress, well-hydrated, well nourished. Abdomen: Incisions healed. No evidence of hernia. ? Impression: Status post laparoscopic gastric bypass Plan: Doing quite well EGD to evaluate postoperative anatomy including resolution of stricture Decrease Protonix to 20 and then stop ? ? I spent a total of 15 minutes on the date of the service which included preparing to see the patient, [id number] patient care and completing clinical documentation.[facility]08[facility] Evaluation + Plan note Future Scheduled Tests Laboratory* Copper Level 04/25/21 * Zinc Level 04/25/21 * Vitamin A Level 04/25/21 * Vitamin B1 04/25/21 * Vitamin B6 Lvl 04/25/21 * Vitamin D 25 Hydroxy 04/25/21 * Ferritin 04/25/21 * Folate Level 04/25/21 * Iron Level 04/25/21 * Magnesium Level 04/25/21 * Vitamin B12 Level 04/25/21 [facility] [id number] History of Past illness Narrative* Problem Noted Date Resolved Date Morbid obesity 05/04/2020 01/23/2021 documented as of this encounter (statuses as of 04/12/2022) [facility] History of Past illness Narrative* Problem Noted Date Resolved Date Morbid obesity 05/04/2020 01/23/2021 documented as of this encounter (statuses as of 04/12/2022) [facility] Future Appointments Appointment Date:09/24/2022 10:30:00 AM Scheduled Provider:Sridevi Goetz PA-C Location:[facility] - [facility] Hx of b[facility]ric surgery- Primary Bariatric surgery status Excess skin [facility] Narrative No data available for this section [facility] Hospital Discharge instructions No data available for this section [facility] Progress note No data available for this section [facility] Summary Purpose Family History No Family History Records FoundNo Family History Records FoundNo Family History Records FoundNo Family History Records FoundNo Family History Records FoundNo Family History Records FoundNo Family History Records FoundNo Family History Records Found Advance Directives No Advanced Directives Records FoundDocuments on File Type Date Recorded Patient [employer] Expl anation Advance Directive(s) 12/16/2020 8:43 AM Advance Directive(s) 12/15/2020 1:00 PM Advance Directive(s) 10/24/2020 10:04 AM Advance Directive(s) 10/04/2020 4:19 PM Hospital Course Note HNO ID: [id number] Author: Douglas Torrez Service: General Surgery Author Type: Physician Type: Discharge Summary Filed: 10/25/2020 7:06 AM Note Text: DISCHARGE SUMMARY PATIENT NAME: Nica Estrada ADMISSION DATE: 10/24/2020 DISCHARGE DATE: 10/25/2020 Attending: Ena Mcginnis Code Status: Not on file Highest Readmission Risk Score: 10 The 30 day readmissions risk score is derived from an internally validated risk model which evaluates patient level characteristics, utilization history, medication orders and lab results up until the day of discharge. Patients with a score of 40 or above are considered highest risk for readmission. Specific patient level drivers will be listed at the bottom of the summary. Reason for Hospitalization: Morbid obesity Active Problems: Morbid obesity (HCC) PONV (postoperative nausea and vomiting) Resolved Problems: * No resolved hospital problems. * Operations During Hospitalization: Procedure(s) and Anesthesia Type: * LAPAROSCOPIC GASTRIC RESTRICTIVE (more content not included)... Note HNO ID: [id number] Author: Devonte Zurita Service: Anesthesiology Author Type: Nurse Slusher Operator Type: Anesthesia Procedure Notes Filed: 10/24/2020 2:25 PM Note Text: ANESTHESIOLOGY PROCEDURE NOTE Airway General Information Procedure Start Time/Medication Administration: 10/24/2020 2:14 PM Patient location during procedure: OR Timeout Performed Pre-procedure: timeout performed Patient identity confirmed: arm band, care telesales team leader and patient Staffing Anesthesiologist: Brandon Stoddard ADJUSTER LEADER: Pallavi Zurita Performed by: SHAVON Indications and Patient Condition Preoxygenated: yes Patient position: sniffing Manual In-Line Stabilization: No Difficult Mask: No Indications for airway management: anesthesia anesthesia circuit Method: asleep Cricoid Pressure: No Final Airway Details Final airway type: endotracheal airway Final Endotracheal Airway: ETT Cuffed: yes Successful intubation technique: direct laryngoscopy Endotracheal tube insertion site: oral Blade: Xiomara Blade size (more content not included)... Note HNO ID: [id number] Author: Devonte Zurita Service: Anesthesiology Author Type: Nurse Slusher Operator Type: Anesthesia Procedure Notes Filed: 10/24/2020 2:26 PM Note Text: ANESTHESIOLOGY PROCEDURE NOTE PIV General Information Procedure Start Time/Medication Administration: 10/24/2020 2:15 PM Patient Location: OR Staffing Anesthesiologist: Brandon Stoddard Performed by: anesthesiologist Preparation Sterility Preparation: hand hygiene performed prior to procedure Site Prep: Chloraprep Procedure Details Indication: need for IV access Needle Size/Type: 18 gauge angiocath Orientation: Right Location: Hand SIGNATURE: Pallavi Zurita APRN.CRNA PATIENT NAME: Nica Estrada DATE: October 24, 2020 TIME: 2:26 PM CSN: [id number] Note HNO ID: [id number] Author: Douglas Torrez Service: General Surgery Author Type: Physician Type: Brief Op Note Filed: 10/24/2020 4:36 PM Note Text: BRIEF OPERATIVE NOTE [facility] LOG ID: [id number] SURGERY/PROCEDURE DATE: 10/24/2020 INCISION/PROCEDURE START TIME: 2:28 PM INCISION CLOSE/PROCEDURE END TIME: 4:31 PM SURGEON(S) AND SECRETARIAL TEACHER(S): Surgeon(s) and Role: * Ena Mcginnis - Primary * Jarad Clarke (Res) DO Steven - Resident - Assisting * Presley Torrez - Resident - Assisting No Additional Staff PROCEDURES AND ANESTHESIA: Procedure(s) and Anesthesia Type: * LAPAROSCOPIC GASTRIC RESTRICTIVE SURG W/ BYPASS AND TREVOR-EN-Y Procedure Findings Note HNO ID: [id number] Author: Devonte Zurita Service: Anesthesiology Author Type: Nurse Slusher Operator Type: Anesthesia Procedure Notes Filed: 10/24/2020 2:25 PM Note Text: ANESTHESIOLOGY PROCEDURE NOTE Airway General Information Procedure Start Time/Medication Administration: 10/24/2020 2:14 PM Patient location during procedure: OR Timeout Performed Pre-procedure: timeout performed Patient identity confirmed: arm band, care telesales team leader and patient Staffing Anesthesiologist: Brandon Stoddard ADJUSTER LEADER: Pallavi Zurita Performed by: SHAVON Indications and Patient Condition Preoxygenated: yes Patient position: sniffing Manual In-Line Stabilization: No Difficult Mask: No Indications for airway management: anesthesia anesthesia circuit Method: asleep Cricoid Pressure: No Final Airway Details Final airway type: endotracheal airway Final Endotracheal Airway: ETT Cuffed: yes Successful intubation technique: direct laryngoscopy Endotracheal tube insertion site: oral Blade: Xiomara Blade size (more content not included)... Note HNO ID: [id number] Author: Devonte Zurita Service: Anesthesiology Author Type: Nurse Slusher Operator Type: Anesthesia Procedure Notes Filed: 10/24/2020 2:26 PM Note Text: ANESTHESIOLOGY PROCEDURE NOTE PIV General Information Procedure Start Time/Medication Administration: 10/24/2020 2:15 PM Patient Location: OR Staffing Anesthesiologist: Brandon Stoddard Performed by: anesthesiologist Preparation Sterility Preparation: hand hygiene performed prior to procedure Site Prep: Chloraprep Procedure Details Indication: need for IV access Needle Size/Type: 18 gauge angiocath Orientation: Right Location: Hand SIGNATURE: Pallavi Zurita APRN.CRNA PATIENT NAME: Nica Estrada DATE: October 24, 2020 TIME: 2:26 PM CSN: [id number] Note HNO ID: [id number] Author: Douglas Torrez Service: General Surgery Author Type: Physician Type: Brief Op Note Filed: 10/24/2020 4:36 PM Note Text: BRIEF OPERATIVE NOTE [facility] LOG ID: [id number] SURGERY/PROCEDURE DATE: 10/24/2020 INCISION/PROCEDURE START TIME: 2:28 PM INCISION CLOSE/PROCEDURE END TIME: 4:31 PM SURGEON(S) AND SECRETARIAL TEACHER(S): Surgeon(s) and Role: * Ena Mcginnis - Primary * Jarad Clarke (Res) DO Steven - Resident - Assisting * Presley Torrez - Resident - Assisting No Additional Staff PROCEDURES AND ANESTHESIA: Procedure(s) and Anesthesia Type: * LAPAROSCOPIC GASTRIC RESTRICTIVE SURG W/ BYPASS AND TREVOR-EN-Y Additional Source Comments INFORMATION SOURCE (unrecogn ized section and content) DATE CREATED AUTHOR 08/11/2020 [facility] DATE CREATED AUTHOR AUTHOR'S ORGANIZ ATION 10/18/2020 [facility] DATE CREATED AUTHOR AUTHOR'S ORGANIZ ATION 12/17/2020 [facility] DATE CREATED AUTHOR AUTHOR'S ORGANIZ ATION 06/21/2021 [facility] DATE CREATED AUTHOR AUTHOR'S ORGANIZ ATION 04/16/2022 [facility] DATE CREATED AUTHOR AUTHOR'S ORGANIZ ATION 05/10/2022 [facility] DATE CREATED AUTHOR AUTHOR'S ORGANIZ ATION 12/21/2022 [facility] DATE CREATED AUTHOR AUTHOR'S ORGANIZ ATION 05/07/2023 [facility] Care Team (unrecognized sect ion and content) Product Design Manager Relationship Specialty Start Date End Date Vernon Castano Zuleyka III, DO [address] [place] [address] PCP - General Family Practice 10/04/20 Product Design Manager Relationship Specialty Start Date End Date Vernon Castano Zuleyka III, DO [address] [place] [address] PCP - General Family Practice 10/04/20 Source Comments (unrecognize d section and content) In the event this informatio n is protected by the Federal Confidentiality of Alcohol and Drug Abuse Patient Records regulations: The Federal rules restrict any use of the information to criminally investigate or prosecute any alcohol or drug abuse patient.[facility] the event this information is protected by the Federal Confidentiality of Alcohol and Drug Abuse Patient Records regulations: The Federal rules restrict any use of the information to criminally investigate or prosecute any alcohol or drug abuse patient.[facility] Reason for Visit (unrecogniz ed section and content) Reason Comments PHOTOS TAKEN Reason Comments Consult FOR RECORDS PERTAINING TO PATIENTS WHO ARE OR HAVE BEEN ENROLLED IN A CHEMICAL DEPENDENCY/SUBSTANCEABUSE PROGRAM, SOME INFORMATION MAY BE OMITTED. This clinical summary was aggregated from multiple sources. Caution should be exercised in using it in the provision of clinical care. This summary normalizes information from multiple sources, and as a consequence, information in this document may materially change the coding, format and clinical context of patient data. In addition, data may be omitted in some cases. CLINICAL DECISIONS SHOULD BE BASED ON THE PRIMARY CLINICAL RECORDS. [employer] [facility] provides no warranty or guarantee of the accuracy or completeness of information in this document.
== END 2023-09-25 09:09 | disposition home or self-care (01) ==
LOC: PM 09:08
PROVIDERS: PCP Physician Assistant; Visit Provider Nurse Practitioner
DX: M47.816 Spondylosis without myelopathy or radiculopathy, lumbar region (principal); M48.061 Spinal stenosis, lumbar region without neurogenic claudication
CPT/HCPCS: G0463

== ENCOUNTER 2023-09-30 08:50 | Day surgery (SDC) | payer OTHER, SELFPAY ==
--- OUTSIDE RECORDS SUMMARY | 2023-09-30 08:53 | XMS_ITS | CCD ---
Author Name Unknown Address [address] [place] [address] Organization [facility] Care Team Providers Care Guide Setter Name Role Phone Vernon Castano III Primary [...] Attending Unavailable MD Otis Burch Admitting Unavailable Aalyiah Hampton MD Attending Unavailable Gieditis , Aaliyah Arellano Attending Unavailable Gieditis , Aaliyah Arellano Attending Unavailable Gifletcheritis , Aaliyah Arellano Attending Unavailable Allergies Allergy Classification Reported Allergen(s) Allergy Type Date of Onset Reaction(s) Facility (8 sources) Latex; Translations: [latex] Drug allergy 4 Cutaneous eruption (morphologic abnormality), Other: See Comments [facility] (12 sources) SUMAtriptan; Translations: [sumatriptan] Drug Allergy 7 Other: See Comments [facility] (1 source) Amitriptyline Drug Allergy [facility] (1 source) NSAIDs Drug allergy (disorder) [facility] (1 source) Plasmin Drug Allergy [facility] Medications Current Medications Medication Drug Class(es) Dates Sig (Normalized) Sig (Original) bisacodyl 5 mg delayed release oral tablet (2 sources) Stimulant Laxative Start: 01-25-2021 take 1 tablet by mouth once daily Dulcolax 5 mg Tab-EC 5 mg = 1 tab(s), Oral, Daily, # 50 tab(s), Refills(s) 1, Pharmacy: [facility], 155, cm, 01/25/21 14:00:00 EDT, Height/Length Dosing, 77.7, kg, 01/25/21 14:00:00 EDT, Weight Dosing Start Date: 01/25/21 Status: Ordered dicyclomine hydrochloride 10 mg oral capsule (6 sources) Anticholinergic Start: 03-01-2022 take 4 capsules by mouth four times daily as needed for pain Bentyl 10 mg Cap 40 mg, Oral, QID, PRN Pain, # 45 cap(s), Refills(s) 4, Pharmacy: [facility], 155, cm, 03/01/22 15:01:00 EDT, Height/Length [...] Ordered Start: 12-28-2020 take 1 capsule by [facility] once daily propranolol ER (INDERAL [...] on above: Take 1 capsule by [facility] three times daily for 14 days. Lactobacillus [...] 01-05-2020 Chronic Other aftercare (1 source) Other care home (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 therapy; Translations: [[employer] RIPENER CURRENT DRUG THERAPY] Onset: 2 Episodic Other [...] Range Facility Coding Summary.on 10-17-2022 Coding Summary. CD:[id number] Gh0bWw+P GhlYWQ+FT2IBWKxY41dkCZhnY1FN 5iSIH2ZUXEVGKVMXQ3ZEK8wzEF2B IhgU3BbynTe HbyxgVXmSB18SCi5GZB7uPzbIToc tI9vcRMwI5g9CpKsRS57oJ45ROlh TBOpSoB0NbUlbggshJYo E1igIwUmeMEbRys+PHRhYmxlIHdp DIBfWDsfQFRmOuTlwHzdDS5bMg5g ZGVyLWNvbGxhcHNlOiBj c2veZDEtMOhmRU9iuJgwY7ExmRE6 DGMzj5o7Xt07kTB+VOFvRAC5zIfz HKpfm778UmFzj1xdQNF6 uXZxKTmiTUB9Z20nk8R3EPToXQQc XLH7oZJ3mN8nkGuibwhpG7EqzIOu JeP6JSH2xDZynA6imGlo ugjkyY7oIvm+N64MKX8GOVDFVW5Y Xby8X4JlUumgyIP+PN76MNUaQY91 zMXvwMHaz0gjrKb0DlYz UTMnYAP0yOhbZNexu1ZwTFFiM11i uGZdx1H1GTAkqGzfgNTtGlFuvWG3 rR3uFBetrmanu6ykfalf Oqzvm6xnxt54zO53W03hWLqgGTVm JFU9UVQdQTQguPhrjq9quG0hAi1+ IXwgk7bzm3zjbBi6ZwFr PEUhvpIxwZwwFBJ6g9IfYf48D0Ui dXfma7DdMjy2az17dBJxs5B0tCC2 DJbgQVYlnK1sOKdjWkL2 DQOhBkLbzL08lBYbOFoyNi3obMcm oPliCH7tRNEqrxbaOQBkhB1iWSEs fCZpuAnzNO8oPGRcqqjo p499NkXyLQJ3DHJyqZOhR0FiaD1c FmRmQQXyCNXgV5OjxRGyYNkzM001 WYweZcO9UNJvorHsN2Eg QUYlsGxnIoB4v1X9Dd3Mz1Kmihcl COZ9KLyyGXGyMwMtVvJeKiC2L5Bw Hoy4AXEkvOckVR5qK8Ed EGOqcmkggwjqmSI9SHCoRJPfuM06 jBGnMBiwSq4jx4R2y617RKYxYBLb wJ56Cy5huKawPUYozAXF pZ9cotllq3cgryseLkPmJXOxLDa3 YZr1KNNicExdTsYoRJH0HgH0YSK2 nJMzqL4ciVclpyncdB5i Oyc+N80haI1gVBB4TBM4rycvYOHw bpSdWY24RI60L4EwTwozwAWtiKI+ AWTbdeFvwUcxPL9lCrAz x4bnr9RqFLjtI9ChGQJoMQtmHhm6 MUQbNMX6xDY1uZ8iZTLwRImbv0H8 oAS2J8HwdxYjpq9no6lc SYZyXYdnM17cuRUex9P1OKSngNW9 TJHzlKxdPjBrkE91Qpw+PGNvbGdy m3OpTngny6odw2juqAc3 RtSbXDVywiEkdBehCTV7o3DaCo69 U70kBTraRUFyCTHjBALkLZVnlRnm zm6ikZ5pKr4+PGNvbCB3 fJP5zW5zNCPxFxL8RHktQ195GdFa qLCePkkjp3elo6jmlFx0WdVbRZOi fcKswEgpPAA0a2YcRf16 L01yFYbsLQBhAEImXHMqSNDzmXne sg9zcK7uBo2+KJ5tz5yrut15rK76 dHI+PYSiPHZ8vXbcOVmz XYRkpA0uPBqlOuR7BOQwRhBerO57 yGQpNEygPe8vjZrgkWcmHY5bUITb edmjz024WjCdx0ihFGVl vXJoAWuoUOE1W20ht5A0ZQKtAAIl DUD0dJE0mH7jpJpkwwljoIFmyRly yiIncCitOIrvKKchS666 IHRvcDsnPlBhdGllbnQgTmFtZTo8 U1PkJzq8QLSncQomJA9fcUCaZDuf Bi3lpAuxcSvzJG0pSRNs wlxjb995DyXzu8fkJAKwaWSmNYgx KXH4W17mq7L6NOLxANCdBZV4cEL5 nC5grQjwgctbcPZawBeg hpQffFwwJGfaFLdrI905VGSwaBov HvRpehLnBNWciTK9DP01AL54qBUv l3Z0eVU7Y8IlARIboyuu lkzgrNS9EUKlXPGdwY95Qj6tzYbt Pp5yBLPpVKE9KEPumOAxY4EgrC0e RfDhKJWcDVDcN0JauREu VFuuQ716GPafDiX0ESErezLbZ7Ww BZSxpAmqOqM8v6J9Bn2LS8Q8GT01 YS22zHDdt1B0cLS7A9Lm PNXssbkzmyidqYB8BUCjASOerZ92 Ya6xsPugEd5jNZAhPLV3CVNjuATa G4LakV5qLtVaTWLyMTBl C0PgoLNbIXiqE852YUbeOqV6OTBa uwHdV3AmSSPtxTdhPgI8s9R9Md6C XAg0VR23RD29bDRqt2M3 tYO6L5KmTOZjxtmtysijiEQ8JSVu MVIjuX80Dg0mnKqnYe0oSXMjCWR9 AZDwcEIxR3VzsT0mDbPq PFRyPHKpK0BrzJTzUPceB010KYlg DwL2BBVaseUyV2ShDLImbSnyQyZ3 r3N6Yl5UYYDzNL91UPB7 gZV2UA77TF84A9CsDkshjKGpqMP+ PHRhYmxlIHdpZHRoPScxMDAlJyBz mPiaUH6pPk0dOUFyQUYd kNlotAHdVpQwh1pfPVYgGHpgTG9v iYvsJ9IpkAI1GOBff5g5Ph68Y35g R3XeqSQ+KCMueOB2zHC3 aV2hJxCgPaG6ZYbmI719PnAlyJDq Pnmpi9giz2ttkWo3SaD7BWUfmrFg wHufVOE5o4TcRn46Q29f YOxhYOXpBBWhRTSbCDKchGnvqs1m iI1bBe3+LQFgtLU3rMP3lK0xScQz NcZ4NZqbB684YsKhoSUg Izmoy1qwp5twvPx8SlFtVJCwxqUg dZcvVKX6l6JjXa71L4NdcXtwo4Sg Cpe3oe48wXMlf5I0vXM2 Y6EeIDYxbpuxtCJbfFhsPQ5rZVHj bvsaOWDyiZ2cMVPkT8l7LqHyXvD5 ERdhT1PwwlJ5GZQrbTSh DNhrDOF7U75zr0I5HIVuGUAbTPR9 gBJ0xG8cbNraserebLTjpHrrfkKe aZjeESnkZTxjP910CLTj iAoiIRIoiL3iQYOfdXAplTqsZM5c RLUwohbpUnGRB6CBTWASGZvUOFtt dGQ+AVKbBJP1dJbqFAmg LQIhqL7fQIGfV9t7EtUtNvA2IEsq F6CoPPIzcvouFk98rL5zMcCwZgO0 KOzmV9BbzyK0VCJlsQLv OZxqWKS5Y95bb9E9TQLiRLHwBHT5 dPV1yP4zxCdqdhwxdORplZjetvKi bRodYPfzTVktN291PDDw uQfuTnF0HzA5NlG6CJT6D8HwAia6 AGUlgGgfHV1eaONxLIwuXd9dtJdy nOriGM5tPMPpmyouVCTc eY8nAQBbnAXzzLkhRV4kNSKnboqj y195IxBkYPA6UPCbwMJfH5PdwB8k PiXwVNTqHZWbQ0ZjbTOq HXncL951IZynNtJ1PKQyxeFfU5Jd RLWdqWgbNvX2w5K9Ap0oHFIVNOPe czwvdGQ+FTScZAR6nSng OLwkFRVbkK8mHTRdM8g6LdKfBdU2 MForY5QzOGNkuclcEx04yR9jRlTx NpH6URcaW4TkhtA5SUFt bGVqBSlwSJA4M56tv3B3MFNcDAJv AIX8zPM9qD9dsFtcffmtkMIscNzx kvWktJuaOJfkMYuuH405 IHRvcDsnPkZlbWFsZTwvdGQ+PHRk KPL6uHrrZCpuAYBpiH4aTNRwX7c4 RsBaBiD4PZcxJ6ZyXLZy fdjvRd41wI7iHlGxCeN0EKghB2Na vnT4CIVomCVlZXgxWWW2A72qv6T5 CQInYZAeLTZ8jCI1iP6v bGlnbjogbGVmdDsgdmVydGljYWwt UYbtS073PDUmcLdzMpZwaG9yXWMx YWdlbWVudDwvdGQ+PC90 uz88P9RqAtciGvi3BVBrZAW1oSE8 nS5aTMFtAXzyb4U5iCF1I0UgdnMo uo7qk1biXVXoKQjoK31i mOMnn1Z8BRKhtXM3IFTugSpaZlTe yF90Tqh+YRHmtJdls2FaHyxhs1jw c6jnmSv5SfCwCAVdenTh hMylCHO0p6PiTr69Y35gREpwXHLf OSCjEGEfCDGvhFnkmn8hbP5fMy4+ OYJkfON4rOK5fM4lEoFy UjI5NGtyE342VvHtmQLyHpgsu0js g5ymcZa4JwFmRJYhlyVpmHolSDQ9 u0EuXj00X7UpdLugd9Em Lnq3dd21fNQjc0Y1dTF7K8WyYWGj tqiwqDXsfRnpZP7ePRHvznkrZJFx rX7aVELwW6t7ShZzHzC7 YLwxR0NpkbR9IDZafSHxUWEywFVT sH2dejgaw8enpaogRjXxUWGyYPs9 VUs6OOGzsYfzTaApWML8 DtO2DZC9uMHrdH3opUaabemaiV8n Oyc+WRi8m3wixQZbZH2ojRP6JG52 NB55pCOxs8W3rNE0X2Vs TWOpoybhknstyLG6NEReVNBckU36 Ff4fyGqzVj2pDIWkNOF6PJMypTTs X3MzoM4hJdUnQYVeYGXx I2JzdOHoSWxiN708UBbxXvG1UZBw hkQkC3XeVOZnnXfoIgT6o2E9Ag8X XZ38OX55YQ87bFMqx5X2 uIA7Y7InAMRnhcdakhpdcGI2HKJg KFTjvX77Cl9ppZbvWb7yNHJaHNR0 EMKnuYXhN8DqdH5gIwGu JTGdYBZzJ8FroCTmXInfN818ZVvx LuI2PODggqMeC4NsDWZozWdkZfT1 y7R3Jh1HJm51AG96WP98 gNBfy6X8jWS0M1TqRJNhlkgacqvl rGM8IDLgJCHceZ22Rh7jjAjtFz2d EHGqJJI0RTFutPMkN5Ex yD2dXpRkTDTsETZyL9MzbKFcPIbm O297NIfaBiG9AHVudzKkI4UqLNTa yYtqDrU8h5G6Xv0KKCsy xnr1K9AqHpoweYN+LW85XLJaVE70 hTKaqYBcd9khdKi5UrBlMRNeTBY7 tEtxGDytu7BlVAHkD29z bGFw (more content not included)... Normal [facility] Consent for Treatmenton 09-18 Consent for Treatment [id number]#1.00CD:127 [facility] Consultation Noteon 10-16-19 23 Consultation Note Patient: [...] Pain, # 45 cap(s), Refills(s) 4, Pharmacy: [facility], 155, cm, 03/01/22 15:01:00 EDT, Height/Length [...] Problems Chronic idiopathic constipation / SNOMED CT 632890879 / Confirmed Colon polyps / SNOMED CT 696332497 / Confirmed Constipation / SNOMED CT 74857792 / Confirmed Dyssynergia / SNOMED CT 75223960 / Confirmed Heartburn / SNOMED CT 86266798 / Confirmed Left sided abdominal pain / SNOMED CT 749724620 / Confirmed S/P gastric bypass / SNOMED CT 9312199622 / Confirmed Objective Vital Signs 10/16/2022 12:53 [...] concerns. Patient agrees with plan of care. [facility] Comment on above: Result Comment: Elec tronically Signed By: Marcin KOENIG, Otis Whitney\.br\Date and Time Signed: 10/16/22 13:18 EST HIPAA Forms Officeon 023 HIPAA Forms Office [id number]#1.00CD:127 [facility] Legal Correspondence Officeo n 10-16-2022 Legal Correspondence Office [id number]#1.00CD:127 [facility] Office/Clinic Note-Physician on 10-16-2022 Office/Clinic Note-Physician [id number]#1.00CD:127 [facility] Patient Correspondenceon Patient Correspondence [id number]#1.00CD:127 Normal [facility] Patient Correspondence [id number]#1.00CD:127 Normal [facility] Patient Correspondence [id number]#1.00CD:127 Normal [facility] Patient Correspondence [id number]#1.00CD:127 Normal [facility] Patient Correspondence [id number]#1.00CD:127 Normal [facility] Patient History Officeon Patient History Office [id number]#1.00CD:127 [facility] Progress Note-Physicianon Progress Note-Physician Patient: NICA ESTRADA [...] # 45 cap(s), Refills(s) 4, Pharmacy: [facility], 155, cm, 03/01/22 15:01:00 EDT, Height/Length Dosing, 54, kg, 03/01/22 15:01:00 EDT, Weight Dosing Dulcolax 5 mg Tab-EC: 5 mg = 1 tab(s), Oral, Daily, # 50 tab(s), Refills(s) 1, [facility]acy: [facility], 155, cm, 01/25/21 14:00:00 EDT, Height/Length [...] Problems Chronic idiopathic constipation / SNOMED CT 457216298 / Confirmed Constipation / SNOMED CT 03788361 / Confirmed Heartburn / SNOMED CT 27897778 / Confirmed S/P gastric bypass / SNOMED CT 5458238591 / Confirmed Left sided abdominal pain / SNOMED CT 196989243 / Confirmed Dyssynergia / SNOMED CT 85753684 / Confirmed Colon polyps / SNOMED CT 071141039 / Confirmed Resolved: Change in bowel habit / SNOMED CT 384341543 Histories Past Medical History: Resolved Change in bowel habit ([id number]): Resolved., SMOKES TOBACCO Family History: Stroke Father Colon cancer Aunt Grandparent Procedure history: Esophagogastroduodenoscopy ([id number]) on 04/18/2020 at 35 Years. Colonoscopy (907778105) on 04/18/2020 at 35 Years. Caesarean section (21148640). Cholecystectomy (45783841). Social History Social & Psychosocial Habits Alcohol [...] and perfusion.. Gastrointestinal: Benign, nontender.. Integumentary: Warm, [place]. Neurologic: PER PAIN CLINIC ASSESSMENT. Plan [place] [employer] (ASA) physical status classification: Class II. Anesthetic Preoperative Plan Anesthesia: Monitored anesthesia care. Anesthetic plan, risks, benefits, and alternatives discussed with the patient and/or family. Patient verbalized understanding. Informed consent was given. Communication: face to face with Pt educated on the importance of smoking cessation. [facility] Comment on above: Result Comment: Elec [...] Problems Chronic idiopathic constipation / SNOMED CT 166689147 / Confirmed Constipation / SNOMED CT 73731088 / Confirmed Heartburn / SNOMED CT 71961815 / Confirmed S/P gastric bypass / SNOMED CT 2461150942 / Confirmed Left sided abdominal pain / SNOMED CT 965277043 / Confirmed Dyssynergia / SNOMED CT 06353764 / Confirmed Colon polyps / SNOMED CT 425536221 / Confirmed Resolved: Change in bowel habit / SNOMED CT 548597760 Physical Examination Vital Signs 08/28/2022 8:52 EST [...] vomiting. Plan Transfer/ Discharge: Condition stable. Normal [facility] Comment on above: Result Comment: Elec tronically Signed By: Jeffery Heath DO, Umesh Cole\.dea\Date and Time Signed: 09/04/22 07:54 EST Coding Summary.on 08-29-2022 Coding Summary. CD:[id number] Gh0bWw+P GhlYWQ+XV4NHWOeM70inSHhuG1WF 6eNDZ9FRKBPUGKWCV9RVU8rsDK4D LkfK8JdbkMd OwmlvHHtPY51DKj0WEJ9eEwaWGme tR3tiMXqK6x5HiFxVX98rJ94EJsr TGEhUoC0IuRverbuxQEd E0eqKeDkkJHjNri+PHRhYmxlIHdp BMCeTOqlTKYcZrFzwIhcVE6lSu7u ZGVyLWNvbGxhcHNlOiBj b6ogRFEcVUliRT6idFtqL0OggWR5 KTHrg9y0Dz79oMF+HQVcSPX6tDyq XGfcy522ToWnw8pqPRU0 hXXfPXnxOSZ5L75ep2Q3ANZwVRYi EGY5wVW7zV8fnRwofitxN8UmeCSe SbI6UXA9bWPnkK9haWxm evzrwF1aDzc+L61ZIW4CQRUHIT9G Cuc2Z6HvNzjwtEX+IO12EPZuJW92 iEApvRPkm9bekBr2UlRq TCOpGHU8kXyaGIxuu9SaYVYyH24r iTZoz7E0TDVipOgwoPFyWgKfaPL8 hE4pVAnawqoqt1jlgjbn Npken6vqgk66yT41U24nVRmvLRWd EHL3WBGvKENikIlbfw1loB5aLp8+ KQaag5yvo6yacYw8OdWu YBQoysAawDwhTAT4l5CxOj13J5Rw xMlbz0BcXfm6ta05rWUgm4T8oWL4 WYxgMVYjcG0eUSthOiF0 NMXjSxWcdF98dTSfTBuoLq3dwOiz oIokZR3gSJIwqgieBJMmdU1qRKRi vTOeaJnxWL7jFELbxayn s772FcOvMTA6CCOpuBEpQ1RhtF5t QqZeALQwFHTtF4PlyNLgTFxlS945 LXcxFjR6ADConsNoQ3Rk PSKogKosNeS4h9Z5Dd4Vw5Aahcrn KPU8SYhzEUUtXdT9SbUaRmF7L0Be Yhk2IJEnhPgwEQ6iW4Ms NFOjhlvxedzuvQA7NYDoPXCbrS04 eVRxVZnjUs3ct4X8g027SISfIAZf wQ40Dc1pqDtmLNSezXYC yA4xvcfvr1muobptHmKuTEQcLHb1 OUy9EDNrgBghDmKhCQO5XzV2HHX8 cEDimS4izCvdquldyN0y Oyc+P23bdR4eUCG1XXQ6qeidDPFp wlKgCH68QJ63H3VdWpfjgYLkzQT+ YHWxkdCstBtwHC4bZhBn x3lxj0FlPCjhA7KbLKIgEIenKiz0 MBQdFSI1kIC7dU7fWVAvJKuyv3A6 fCS2D8SgflPfpa1xp1as GAQmATwhN39rbLZnm7E8FBXtwBT8 RCSpxVucNvRjnS49Hyk+PGNvbGdy p9SfOdgwe7bfq5cieVm0 CtAySGIzwhRvzXrhWKH9c9RmOz95 S99sWRwlBXNbKOHiXLNcVEMsxCap kj2ytT2wUc0+PGNvbCB3 nYO5hA7bBIDzBnM1PRutM006VhGk pXWkXtakm0gip2cerZq1VjOcBQXk xhWnmIslOSH5n6BxQx45 V67fVTqzTKZvPVAwGXJqWBXgtVnz vh4gnC7jLp6+NT7xj6asmg71qS23 dHI+HRGbTYC1iOrrJSnn MMHljM4fMSlhFsI6DTJdHiCuzQ83 bXJiCZgpKt5lfNiikSdmZY8pSYAn hohwf658PfHcq2wbZZIb kVRnTFkqQGU0H55ej1N9UDSsLJCw GXE0iFP9eN0qxObeukiwgKAegOnp ucTdcDknXPelEBsmF712 IHRvcDsnPlBhdGllbnQgTmFtZTo8 O9RhXpv1LUNvuLtxWT4pzUBsGRvg Xn7xqTjgaMvkUW9pUHFh sglcv889BgWqt9bgVIDvgJLtXRwt BCM9D38wm9V4YUEbBTCgZUK8jHT1 hZ8cnWfvzhfusZMirVnm pwCwcIjdQOtlXByoO935EEBznAmg PqQwkeIrZTLqfXN4MD03BQ83xPPm v9T1sNH7P4LuBTRufwce pvhkiDK6YWLdMWExkS32Wg8iaYxh Se5xZMEsRTH7ZFRpbPIvQ4GwjH2m OpWlHQFuIUGaK2KcbXNb RHkhI797IZktDyP5IMHxvdXkE0Fc PMKdmMbnZeK9i1H5Xi0TO2Y2ZU66 HN10zGVqp7G2uUP6Z0Vt DVHfehslvrnqbBF5FBQtDVYlxT92 Ye7olCnlAg4pYMIkPSV0ZKUtpGEk T3KzuQ0fGtOxJGRuDTIt M3QdmBQkEYegA741SIbsVeC6YDWg usJiB5GiAVKafPoxHgD8g2L5Fa9H KTt7FR90BT57eRCxi1S4 gWU2L0HvTJWotoomprjhmTS2JJPx NMDdnM86Tn5ntUzmWp1oIVNmUAY6 AUHodUQbZ7YekL3nXpNc EALcLOLcE5MtdPRfOJkrG046TFyf QbQ7IVEqwdRyV8YfEEQkiDnxOlH5 o8U5Ua7XOEDqRB72MKX9 rES4VP30KD89S5RwPtljlTGarSO+ PHRhYmxlIHdpZHRoPScxMDAlJyBz mNauVI9gHy3wVMBrHZZl zNhfeHLmCkDlb6vaRBIdIGkeOU1t wItgF0QbnQP0YLHia9t7Yz23J73c I2UvgEC+QKMibCG0qOJ5 iN2oWwZhZjC6GMgaQ305GcShmEQl Ixrbr7lsz9znnSz2AnH8XSJktwNg aEsrSYT8q3SnPw36R72z JGgiFRElMAPdUCAqCYNomTryvk6k xD0nAz6+SWKwsOD0pHJ2gN5cOlQc YrE5QEueB190EqIzsVWb Gbgvu5ozh2ieyKx0OhXoDVVgazHq tAeaCNS8m6UdEw82W2TesAlxj8Ts Kmu8pp89zWJqv4J8xRO0 Y0HgKESmscoqsJTkfMmkDK7fIJJs rgpsQYRwwN7yNDLlG8v7MeSmLrD4 MJweS2EyiuQ3GDFabNFs IApgBZB5E60ud7D8CQHoBSEgQMX0 zEF1mD3jeFoxjxnkiQHojEqbhfRj yGefBSmvJErrW366MIVs iRaxWOTziD4uCYTzoVRguWgkWE4c NLSizdtlQhPAP9SLTHHAPOhQHUlp dGQ+GRWaFLF0oWnrDCee TAQosI1qNFBeW9x8KkVhIvU9GKck Z6HhRMQfqeqgTe27cC1nWuJxQzW4 CTkzD9WsvvX6QVKurMHz TMcmIEU4O44ki5A7SQYaCZOaXMB7 xVR2wY3rmPwresoisWTkzBzsehHh mVfbTVtdBXbtD766ILWt rWbfUmI4JaK9CgY5YWJ6V3EnWce5 IYYuvGanYT7kiQPoXQqoOo7eiTsf cBaxCY3mIONtplikWIIu nE9xPJYurSCgrNbmDS6iNVMgxwbr q696OqNoFOK3JAAlmLCxS7XryU9y EgSyVHRlXJJvE2GzaTJt CUnqE251ZOalUdM1KMRohzGaK3Fg AIAdxRghXlO9a7D1Cq2iQVAAVSCj czwvdGQ+OEUvOKY6bCtq RDmsFPZzrQ9eITZsT0j8BzKvUpR4 YXcnA6CeUUTzkfxvNj38gJ2zIqSb GrK5KAcwD2HfbfC9JSSl dOJnMIujDNR1Z74ow2G4LGWeTTXy GOI2gVS4yN4vqPhtsgiaoRNujPrw pwAosQasKPbuJHyrF433 IHRvcDsnPkZlbWFsZTwvdGQ+PHRk XEK5lWgiAFvuXTCegW4oKEAdG3b6 QpMxSxX8FTddA8KkFUYy xemwEj53rI7sAcNkYcZ5AZoyZ1Ox zzI1UJJheMZmCCiePFJ5F95ub5D2 QJLjYIMsLKO1tRX5fN1k bGlnbjogbGVmdDsgdmVydGljYWwt NMskG488PYZcwUxkVqMgaI9eUPIx YWdlbWVudDwvdGQ+PC90 xr90P6IfYmmgEet3QDYyOLY6hSZ1 wS0kXYRmIAijf9M5zEX2O6NfenSj uu6tr1yqCOByGJzuY91r hYUat2J5KBEfhRO8VWAetGbjXtBg zQ40Yae+ESBhwRjft1GkVyyeb3dl w3fshFb0LsPxPPPcflOe vKyvZFR9f8SpAz56U34hLDxmOVEr WWOyRBAyYIKtrIzggt4ksY5vXi0+ GTQpkGZ1qDJ7bR5yQrPm HlD5KThjK904VkIxgWPnOuztb4vc f1dgdBz1OrVmMLOhosOpyBsdSUH3 y2UoPv83X5GmdKngl7Jh Myo3pb31hXJfc9Z5sPZ5R9NdHCSe bbdoqBKwhMfdTU6iILAykmjgGKMa wK5bWTYlE6w0WkAeSeZ3 LGtoC8RrpfG2XCVchJRhKZVbdYOU xZ7qwoccs4mspsveGjLvZKJpHBp5 VXf2VGWmoYsnIsGcNNI3 NyZ8DSI9nLHejO0zxKxhmatooW5p Oyc+JXq2c8amdOTdCR5gfYC6QK88 AE91rMCnt5H1qPK9G3Mv HFKcbbgkodldjPH7DROwCUJvsK47 Yr5tuMrfEe8uWHAiPGF9ASOxvFOt X2JmlP4mKjBqPQCrAMUe D7KtbAOnXCdgU951ZJxdQsI4IWGo ebWpB7VzPSGkkZnfVhG0x0B9Zq9X FL54NY11AO54kRExk1N4 wLD9Z1UgXGZhmcpkcmtszZM1KTCj CVDvsO40Yq7nrSflMr7sLTIbBUT3 ISFzqIWsP1GgrA3nKrZk WGHyOSNuJ3RdeGJdILrzM070OPgx VyO8XIWsgnOjW8PpNDIkjUpoHoR7 d0K6Vj3ECr67FB97NE78 wNSnk5X5vTS5X6CsTECaejplawzy dKE7MDHvAVUjoH96Bj8jtYesNw5g XIRpUXF7VXUjfPLcO1Uc yC9wHaIgKWApZJWhS6IptBKgHTdh K119QZimMcK5JNYhwnClG6MqNTAh zQkhLoT2y6Q1Tm2XGBml wcp8G8MdTjndiLY+NW59ASGbLQ69 iBBlwLWbo2kkbIc9WpTgWRYkMVO6 zMqqYBate4RlPGVdQ83y bGFw (more content not included)... [facility] Consent for Anesthesiaon Consent for Anesthesia [id number]#1.00CD:127 [facility] Consent for Procedure/Surger yon 08-28-2022 Consent for Procedure/Surgery [id number]#1.00CD:127 [facility] Consent for Treatmenton 08-16 Consent for Treatment [id number]#1.00CD:127 [facility] Discharge Instructionson Discharge Instructions [id number]#1.00CD:127 [facility] IntraOperative Documentson 10-29-2021 IntraOperative Documents [id number]#1.00CD:127 [facility] Main OR Intraoperative Recor don 08-28-2022 Main OR Intraoperative Record IntraOp Document Type FTPM Summary Primary Physician: Otis Burch MD Finalized Date/Time: 08/28/22 08:46:07 Pt. Name: NICA ESTRADA/Sex: 1985 Female Med Rec #: [id number] Physician: Otis Burch MD Financial #: [id number] Pt. Type: P Room/Bed: / Admit/Disch: 08/28/22 [...] Lydia Role Performed Anesthesiologist Surgeon - Primary Procurement Professional Brim Setter Time In 08/28/22 08:24:00 08/28/22 08:24:00 08/28/22 [...] RN, Janet Role Performed Scrub - Primary Superintendent Job - Primary Time In 08/28/22 08:24:00 08/28/22 [...] Equipment, Medication, Time Out Denisa Le RN, Mcl[place] Verified (If X-ray Participants DEEPTHI, Juanita C, [...] and tissue Entry 1 Skin Integrity Intact, [place], Warm, and Skin Abnormality No Dry Outcomes [...] Right Leg (more content not included)... Normal [facility] Main OR Preoperative Recordo n 08-28-2022 Main OR Preoperative Record Holding Area Document Type FTPM Summary Primary Physician: Otis Burch MD Finalized Date/Time: 08/28/22 07:18:56 Pt. Name: ANDINICA/Sex: 1985 Female Med Rec #: [id number] Physician: Otis Burch MD Financial #: [id number] Pt. Type: P Room/Bed: / Admit/Disch: 08/28/22 [...] 07:18 Le Vasques RN 08/28/22 07:18 Normal [facility] Operative Reporton Operative Report Patient: DOLORES ESTRADA [...] side with the identical technique and medications. Elton were removed and bandages applied. The patient [...] Temperature Axillary 36.8 DegC HI . Normal [facility] Comment on above: Result Comment: Elec tronically Signed By: Marcin KOENIG, Otis Whitney\.br\Date and Time Signed: 08/28/22 08:46 EST Outside Records Officeon Outside Records Office [id number]#1.00CD:127 Normal [facility] PREG HCG QUALon 04-20-2022 , QUAL Negative Normal NEGATIVE [facility] Comment on above: Performed By: #### P REG #### [facility] [address] [place] [address] Dr. Refugio Apple CNOVon 04-12-2022 CNOV Office Visit (PLASMN ) NICA ESTRADA ([id number]) 1985 F Date Time Provider Department 04/12/22 [...] times d (more content not included)... Normal [facility] PREG HCG QUALon 04-06-2022 , QUAL Negative Normal NEGATIVE [facility] Comment on above: Performed By: #### P REG #### [facility] [address] [place], [place] [address] Dr. Refugio Apple Copper Lvlon 03-09-2022 Copper [Mass/Vol] 89 microgram/dL Invalid Interpretation Code 80-158 [facility] Comment on above: Result Comment: This test was developed and its performance characteristics determined by [facility]. It has not been cleared or approved by the Food and Drug Administration. Detection Limit = 5 Performed at: [address] [id number] MD Adan Singleton Performed By: #### 2 [id number], [id number], [id number], [id number], 2697308, 2587598, 30709731, 79748840, 84855073, 0163131, 24510892, 33265972 ####[facility] [address] [place] [address] Vit Aon 03-09-2022 Retinol [Mass/Vol] 42.2 microgram/dL Invalid Interpretation Code 18.9-57.3 [facility] Comment on above: Result Comment: Refe rence intervals for vitamin A determined from [facility] internal studies. Individuals with vitamin A less than 20 ug/dL are considered vitamin A deficient and those with serum concentrations less than 10 ug/dL are considered severely deficient. This test was developed and its performance characteristics determined by [facility]. It has not been cleared or approved by the Food and Drug Administration. Performed at: [address] [id number] MD Adan Singleton Performed By: #### 2 323145, 0091783, 13664890, [id number], 2125826, 8173149, 10946469, 96299351, 46654618, 0325998, 87520209, 21427474 ####[facility] [address] [place] [address] Vit B1on 03-09-2022 Thiamine (Bld) [Moles/Vol] 146.8 nmol/L Invalid Interpretation Code 66.5-200.0 [facility] Comment on above: Result Comment: This test was developed and its performance characteristics determined by [facility]. It has not been cleared or approved by the Food and Drug Administration. Performed at: [address] [id number] MD Adan Singleton Performed By: #### 2 339388, 6697111, 18550332, [id number], 3501382, 1131737, 43686455, 34668110, 20979879, 9343053, 26314009, 33331473 ####[facility] [address] [place] [address] Vit David 03-09-2022 Alpha tocopherol [Mass/Vol] 9.9 mg/L Invalid Interpretation Code 5.9-19.4 [facility] Comment on above: Result Comment: This test was developed and its performance characteristics determined by [facility]. It has not been cleared or approved by the Food and Drug Administration. Performed By: #### 2 583290, 7783462, 37675759, 830506264, 2406563, 2119096, 50725077, 23730249, 61990311, 6174133, 75227909, 48703972 ####[facility] [address] [place] [address] Gamma tocopherol [Mass/Vol] 0.8 mg/L Invalid Interpretation Code 0.7-4.9 [facility] Comment on above: Result Comment: This test was developed and its performance characteristics determined by [facility]. It has not been cleared or approved by the Food and Drug Administration. Reference intervals for alpha and gamma-tocopherol determined from National Health and Nutrition Examination Survey, 0922-3565. Individuals with alpha-tocopherol levels less than 5.0 mg/L are considered vitamin E deficient. Performed at: [facility] [id number] MD Adan Singleton Performed By: #### 2 092053, 5309181, 26636339, [id number], 2622384, 3379425, 31863211, 72653726, 47007747, 5365904, 10693777, 32981142 ####[facility] [place] [address] Vitamin B6on 03-09-2022 Pyridoxine [Mass/Vol] 33.4 microgram/L Invalid Interpretation Code 3.4-65.2 [facility] Comment on above: Result Comment: This test was developed and its performance characteristics determined by [facility]. It has not been cleared or approved by the Food and Drug Administration. Deficiency: <3.4 Marginal: 3.4 - 5.1 Adequate: >5.1 Performed at: [address] [id number] MD Adan Singleton Performed By: #### 2 025548, [id number], [id number], 612310536, 9827029, 5216977, 75366698, 73133304, 00379867, 8615778, 62375103, 96739022 ####[facility] [address] [place] [address] Zinc Lvlon 03-09-2022 Zinc [Mass/Vol] 89 microgram/dL Invalid Interpretation Code 44-115 [facility] Comment on above: Result Comment: This test was developed and its performance characteristics determined by [facility]. It has not been cleared or approved by the Food and Drug Administration. Detection Limit = 5 Performed at: [address] [id number] MD Adan Singleton Performed By: #### 2 092639, 1173510, 72564438, 260105294, 4178329, 0634840, 31341460, 37259719, 35898728, 8850868, 68481877, 38489370 ####[facility] [address] [place] [address] Coding Summary.on 03-08-2022 Coding Summary. CD:[id number] Gh0bWw+P GhlYWQ+ZG4BOLQgL71vgSBdyV7IQ 0gYYF6IYWUNJYUYDZ3TFA3zrAK0L VycF6AnsfGk SkmqiNUkTS32YBc6VHP8rXbkFAjq vO9wuFRxS4z6PvMlJJ63uJ43GBeb DYFgRoR0SzSfpypdnWWi P9niLbOedZRlRsl+PHRhYmxlIHdp ZFFrCEaxRWYtMdYvfRejTU2wGb5y ZGVyLWNvbGxhcHNlOiBj r9zjGYNsEMvqFT1lsLboJ1KwoFH2 XPXxa7g0Wc29aOD+QNRpUFX7zRqf ZFpwb470EuNdm6kwKWW5 aKEdWVmvNVH5B54ww7A3FEZrXEGn GSH6bJJ1iL6rhHxxphboN6QzrHXv MqY0KXG5qPFyyW6nrFwc gmehfQ5yWju+U23GXM6INODPXO0Y Hkw5L3LkBvzptCP+ER35INUwMS40 iEQnpJWdm3msbTo1LzUf PHKgWLN1vHzpZCvcw0IyJTEhW41m wFSwa3A0YCFlqFwpjDUnAwBlcLM4 zJ2gCKjnryyml6fyvupa Zxhgd2zmxl67iB33P11wSFjdMMGx QUX4PVRuTFIxaOoseb0qxJ7aPp7+ NWvyd4eyy7fuoLt3GtOx TLDkiiWhhQdlHWC3b3YsJv39B0Sh mIbet3JhKxr2ez43dPFrw2V2jIV9 IWjrBLVavB0qREbaKjN3 OHEyJgVutD23aCQgIWzmUu0arAvf nNotDZ6jGPDvrzkxGCQzsB8lXFAq jHXdyGrdWV5fVWGcalds d050NbPdBPP6VNVtjVEpO9MghF4p RfFkWRGsVNQmE3TgwWBpNKilX651 YQecCnH5UYKaajNzX9Xg EXKofRqoQgK4w7F2Ed6Gf0Efzuxt NIY8QQahFHG3KfVmEbBnUzH1T6Zr Qvb4ACUgeTszFS2gP6Ax GANawhwvkxsfqNT8NXRdAHGdmD10 mXRdYKuzEg1tv5W7x320DPEoNVOr uI79Bg6mwOvwAJWkpTQK wL0lbkcjq4mxvdxqShGzQCLuCRg6 KLy4TFAvuUbkBeYpGRG9EjI9FAK1 tNFhxR8ahDtifqwshW9d Oyc+W01lyR6vLVB8CXC2hoifAXOu weHdBH45YA83N1OiZykfePUarIP+ VVVpuxQnzZugHP7eGkPr x0qnr5GiCQghQ9PfKEGtUFynPuk0 TCLdTTE3yIG7rG5eVZDgHFblc8C7 iMB2B5FrmhOukh5aa2xd EYRlKOshE25fpKMrs5O5NKLxsSD6 WGFjtSdvJpXstH38Kee+PGNvbGdy e2VdYalof0eff5josBq0 HrZyPLLdfnCoxPlcMON7h0WpDh43 O19tXLwaKDEbYRKjGPNzESOujSbu xm5vzP0kAz0+PGNvbCB3 qXI2uO4pTQQqMdH4HUgtD719NcZu dNUmCojgr3cga0mioZm7IhNgMKAx pnEcvSwdOOT9t0RdDe88 U70aYNvsABCjNTLxFZYyLXObjOqp ce7emP7yNr0+YA5ol7hypi74xT39 dHI+LPOuSHG6xVyvORzt JUKavL3aPVlsUsJ5NAOfUvYcrY18 zAMvNJiqCw4kjFumaAvyPQ7kOXAe luagf005YoSio2amHYNd dWTbUXgzPTQ3P69ay4W6JVTmVQOi AEM0kRM4yK3ptWdtzxvgzMDuxPod thUemNqaIPpuCHluD126 IHRvcDsnPlBhdGllbnQgTmFtZTo8 M1ZmUkc4ZAGkaGfqQP2adTPyYHdf Dz4xxFvrlVqlDN0rNMJh ogbcx015IsJsl3fxNWDyoATkCUxe PUB5J69ko8L0VEErZHCtSZR2fEB6 qQ3geXytghkelZIhdJvl ohRliAbtETvfQEetH801PBLwcHoa IjIcizMcEOIbjGG9FA15VB38eYLs v0L1bZE0O7SfUVGsnzvn xbapyOP1QIRrOLFosD01Rx3ewBoa Jt9lMMZkBUN7AFSapLPnO4FgkA1o EcRbELOeNMYnP4WneMUa ACivZ209XKenOhN3LKYjtvEoK3Fa KGEvuIvzQxH0n1T8Pn1PA3G1UA43 GI38lIXpv2Q7iPH1F3Io EHAbjhemymctjQB9GXRcLKRxaC40 Wd4trWphIs9vQJUyPHP1TKJvyFEu X5UamQ8gPkEfMLDjMDVq M9ZbtBPkKImyJ676GMqlQmA8QXQq lfFeW4JqLXWybWvmUsR9x7B9Xj3M LPi8OG06AV09iOCag4M5 xGJ3I0QvEPMdiprrmlrqrVO6LBZh AMLwqJ96Vc6ttDabRe6zZUKvVEQ6 FMVyqNKyZ7ThkU4mZgDu VFJtFUAdE5BdiADoVMykQ266EVjn GeG1WMHgfvWqU1JqJGZfjQizNsG5 o5C5Tq9DQZTlFN33VHA1 lDI8FA09TS98B2ZnWyhyqJKjsLW+ PHRhYmxlIHdpZHRoPScxMDAlJyBz xEhkSX6pWc3bEKMvEAPy uDojvXKfYjBhf9xpSTUoDEtqML9p pFdkS5TfiUS3COFol8i3Lo14D09n A5VobQW+DSJsxBG3uQS8 hI9hIsMdJfV0WOrwZ873YoPvuTAe Olppm8tpn0kzhDy1IwT4MKVlsoLg xFqjGKH2x9FxPc75T07v XBtlYQVjHUZuUNRqJDXaoQuozr0d lZ7bLs4+YKSzjOU4uKO6zO5hWqCt AtR5WEgjL398DbWpcWOo Epawf9mps2assFy8BqGaEJGkgzZa cWicJGP7h1NjLr95K6IfaCgpf0Vf Ees7iy29tYZss7J3tXY0 D2JyBAZihsbkpXUkwCfrRP4pZFDz zkmgUTTulS2aJTEdO3w0AnMpMeI9 BUvhL6TsetS8SHZasNAn VQvgKRK9I79mq5N3ZLInOFIyHKJ7 vOB3nZ7kkInztaajpLCgbThgbdQo nPnfHJyrBOunX597UGUo xMbaCRUhfN5xRLWhkZDkoXftSA6k YFDemtvfEgIDL1VDKCXKPFfGOGtu dGQ+BQWnXXE8dNhgIAvy HLIqqT6hFONiU6p5ZmDeDbV4GTmk J6UpIVIztdizPl05tO9qSkRiLsA6 ZWqfB3IaftQ9WNAsiKHm BKbjEPF4O28rv9Z0UQXnDOBfPKI4 sOJ0cV4pnXgcrwfoqXEavJvjfbVr qIdrRDojWGaaU666GACc aLadIfY1YgB6AuR1SZJ8U4LqIuv6 DCGwmEubPU4xfHIeOUttYl4bwRoy uOpgTU1cPQTgyqyiLZHc aH0aLRQsuGBaiIrpNL1hMQErcjam o359TwBsGXO9CRDuuVJqX2LyrT2c JaXdITBxLBGvE6BatHJg JXhoN411URfiEcK0WLSfkdVmU9Ge WOBvpAiqOaG3w1P4Ut5lRRSAOFMh czwvdGQ+KCLqYSJ1uKlu ILjkDRRzkS3fIWYwC1z3DoOuSeE1 TNzbL8LnJSQuyugrFr21yX9mJgOp PlY6UDjvG0GkwcL3KDUt iIJzIYgxISQ2A81wn8A3IXMnKJKz NSD6kGG7hV2nfGbiwxlafXZnvEof ihGevPydATfhNBibX897 IHRvcDsnPkZlbWFsZTwvdGQ+PHRk GLM2wKerLEdkEMEayW2pUZWbO7c3 GsCrRcI7OZqoS5AkATFi upfdFl81bL9xLhNsNtG1CFnjU8Tu tgZ8PWVsiMJgSHloTLP1M14di4I0 CEOnDNRrXAJ8tFO3qC6t bGlnbjogbGVmdDsgdmVydGljYWwt PXgsY551EERszRcaQy91eESexGtf qjZ6U3OvBmhmgQO+PC90 EZXnYN50tNZbeNLee3zyfMr2JhRe WBYgTCD9eOuwZQmpj5YwSAFcU94z bWHnk0Z6GMPmeYaktHMj ObNuxHF6lD6yVBclsicqr3ywsjde Vwfbu9hvvg38gS20M11sQLszVHPv MUNtZTLiRXBdtUgnky4g rM8zUd7+TYKyoJH7mKS8qD5iGoHj GtG0JRirY865VsXksHZwAcjso5ff s7sizMd5SfYmRNWddrMf rBfyRKW2a5CmGh43Z95uCUkgIIOq CKDrCIXlDOTpuShhtc9nzT7hUt2+ HS8th6hwvk80gF45jHQ+ XVRzNGD6qLohZRrpABBneL9vWDtm LyR0TLLvHrQlgF71kFBkUKnbJa6i sXyqmJrsTR3sRMZcgsiy e242CnUjy8ukYOUzmAYcPMzmIPN9 J81zn9D7IJPdWKQgDBG2vEH8gG7w bGlnbjogbGVmdDsgdmVy oZazJNbaBFaeF156COGpkLszHbAy eKOgZ9moxrUJUO0wQurvrND+PHRk OYM4xHtcHQexXJFcaC5g QQFpV3h1MrEeOsM6LSpeF1CaglL5 ZRPsrMZxZHKwaZFEtV9zjkrgp3fm xtueVzHwEYRpQXv2THg2 WGKzsLymXbDiALF1BfR9BYD8jZGn jX1kdFhbnbelqS0yLwu+RklOOjwv dGQ+DYXxAQV5eYbxXQxt GDShnD0dGPYnG2f4KuSmIuZ6MKvu D0MzhrI8FALoaNJxRQQbqETIuD1k jubvg9mkvxfiOqDtKFNz QEy7GFg6XJHodEjmLeFcAZW7MzN7 OQA6hGFnwK7gxAlcozihmM2wVpl+ TVJOOjwvdGQ+PHRkIHN0 mOvzYCfsYTUroC8bACJcN9g1PmWs NnY1GMhcY4GzuuU9KJMslVYcYTEk tEFWiX2aknehl3ndzeyq JiIiWYPrLOn4PLh9QRIjyTtiAkOd IAU4CzX9FSN4cZBcfJ4coKzsndty hX7nErb+MSR7TXD1DX42 LD55P5GaOgfquQYikGV+PHRhYmxl MCmdXZOoWMjxWWFtDpBfuRagDA0w Ck4dACYjGEVbkJnweGNj OiBj (more content not included)... Normal [facility] Gastroenterology Office/Clin ic Noteon 03-05-2022 Gastroenterology Office/Clinic [...] with dyssynergic defecation and placed referral to [facility] for biofeedback. She states she never received a call from [facility] to schedule her appointment. However, the patient [...] after patient or guardian consented to allow [employer] to record this visit. ROWAN cash processing specialist and provider reviewed before signing. ROWAN: [...] Oral, Daily Nurte (more content not included)... [facility] Comment on above: Result Comment: Elec tronically Signed By: Oral DIETZ MD\.br\Date and Time Signed: 03/05/22 10:19 EDT\.br\Electronically Co-Signed By: Valerie Gonzalez\.br\Date and Time Co-Signed: 03/01/22 17:20 EDT Lab Reportson 03-05-2022 Lab Reports [id number]:127 [facility] Ambulatory Visit Summaryon 0 03-01-2022 Ambulatory Visit [...] physician if questions or concerns Pharmacy Information [facility] [address], [place] [id number] [phone] Allergies Imitrex (nausea) Latex (Rash) SUMAtriptan (AOF) Problems Ongoing - Any problem that you are currently receiving treatment for. Chronic idiopathic constipation Colon polyps Constipation Dyssynergia Heartburn Left sided abdominal pain S/P gastric bypass Historical - Any problem that you are no longer receiving treatment (more content not included)... Normal [facility] CHEMISTRYOrdered By: SYSTEM SYSTEM on 03-01-2022 25-hydroxyvitamin [...] Consent for Treatmenton 02-14 Consent for Treatment [id number]:127 Normal [facility] Ferritinon 03-01-2022 Ferritin [Mass/Vol] 19 ng/mL Normal 11-307 [facility] Comment on above: Result Comment: NORM ALS MEN <30 YRS 16-132 ng/mL MEN >30 YRS 8-338 ng/mL WOMEN (PREMEN) 6-104 ng/mL WOMEN (POSTMEN) 12-210 ng/mL Performed By: #### 2 322802, 1899066, 07501446, 826450301, 2959942, 4629937, 57767832, 19050763, 20304430, 9280991, 02339575, 77048746 ####[facility] [address] [place] [address] Folateon 03-01-2022 Folate [Mass/Vol] ng/mL Normal >=6.7 [facility] Comment on above: Performed By: #### 2 282600, 7516210, 25790824, 286700805, 8123271, 0702824, 72628649, 33327740, 99277797, 2039640, 71423751, 54046879 ####[facility] [address] [place] [address] Ironon 03-01-2022 Iron [Mass/Vol] 48 microgram/dL Normal 35-153 [facility] Comment on above: Performed By: #### 2 387925, 6592392, 05730716, 265305216, 4399524, 4876093, 39483590, 85636491, 07315630, 5847696, 17257072, 83336992 ####[facility] [address] [place] [address] Magnesiumon 03-01-2022 Magnesium [Mass/Vol] 1.9 mg/dL Normal 1.3-2.4 [facility] Comment on above: Performed By: #### 2 847476, 9373080, 60246472, 581884047, 2811434, 6540472, 97053566, 21712921, 81178507, 6550582, 76564807, 61756742 ####[facility] [address] [place] [address] Provider Letteron 03-01-2022 Provider Letter (Inserted Image. Yue ble to display) March 01, 2022 NICA ESTRADA [address] [place] [phone] NICA ESTRADA 1985 To Whom It May Concern, Please excuse above patient from work. Date of Illness: From: _03/01/22 To: _ May Return to Work On:03/02/22 Restrictions: _ Comments: _ Sincerely, Normal [facility] Vit B12on 03-01-2022 Cobalamin (Vitamin B12) [Mass/Vol] pg/mL Normal 50-1500 [facility] Comment on above: Performed By: #### 2 900962, 7124641, 88695271, 716371548, 1629524, 9662484, 21612305, 85229833, 89063617, 8716661, 80591011, 88859055 ####[facility] [address] [place] [address] Vitamin D 25 Hydroxyon 03-01 25-hydroxyvitamin D3 [Mass/Vol] 37.3 ng/mL Normal 30.0-100.0 [facility] Comment on above: Result Comment: Vit estevez D deficiency has been defined as a level of serum 25-OH vitamin D less than 20 ng/mL (1,2) by the [place] of [employer] and an Endocrine Society practice guideline. The Endocrine Society further defined vitamin D insufficiency as a level between 21 and 29 ng/mL (2). 1. IOM ([place] of [employer]). 2010. Dietary reference intakes for calcium and D. [place]: The National Academies Press. 2. Cecilio MF, Elieser FRANK, Mary Jane IYER, et al. Evaluation, treatment, and prevention of vitamin D deficiency: an Endocrine Society clinical practice guideline. JCEM. 2010; 96 (7):1911-30. Performed By: #### 2 896837, 1105471, 55494068, 598667482, 6433345, 0323207, 53607504, 91825362, 37900520, 4100873, 15296398, 09562842 ####[facility] [address] [place] [address] CNOVon 11-10-2021 CNOV Office Visit (GENSSM ) NICA ESTRADA ([id number]) 1985 F Date Time Provider Department 11/10/21 [...] mcg, Iron 45-60 mg and calcium citrate 5679-1079 mg/day PHYSICAL EXAMINATION: Weight loss: BMI 23.2 [...] Ena Mcginnis MD Referring Provider: ENA MCGINNIS [[id number]] Allergies As of Date: 11/10/2021 Noted Allergy [...] JUANITA (a (more content not included)... Normal [facility]19 MRI [facility] WO CON EXAMINATION: MRI CSP INE WO [...] by: MANOHAR ALONZO Date: 2021-11-10 14:28 Normal [facility] CNOVon 06-15-2021 CNOV Office Visit ([id number] ) NICA ESTRADA ([id number]) 1985 F Date Time Provider Department 06/15/21 11:30 AM ENA MCGINNIS [id number] During your visit today, we recorded the [...] call directly to schedule upper endoscopy at [phone]. Please leave a message if you receive the voicemail with your name, birthday, and reason for calling. Please expect a call or [employer] message with appointment information and instructions. What [...] is especially important if you have had dtfho-iwqanhpyx-ranug surgery in the past. How is an [...] minutes for (more content not included)... Normal [facility] US breast RT limitedon 05-12 US breast RT limited [facility] Main [place] [id number] Ultrasound Report Signed Patient: Nica Estrada MR#: [id number] 7 : 1985 Acct:[id number] Age/Sex: 36 / F ADM Date: 05/12/21 Loc: [facility] Room: Type: [facility] Attending Dr: Julianne KIDD, MICROFILM TECHNICIAN-C Ordering Provider: MARTI Loera Date of Service: 05/12/21 US/US breast RT limited: RT LUMP Copies to: MARTI Loera MICROFILM TECHNICIAN-C LIMITED RIGHT BREAST ULTRASOUND CLINICAL DATA: Palpable [...] Kaye Howell M.D.05/12/2021 10:45 AM Dictation Location: [facility] Tech: Ronit House Transcribed By: RANCHO 05/12/21 1045 Dictated By: Kaye Howell MD 05/12/21 1041 Signed By: 05/12/21 1045 [facility] HISTORY PHYSICALon HISTORY PHYSICAL HNO ID: [id number] Author: Kalpana Otero MD Service: General Surgery [...] DATE: December 16, 2020 TIME: 9:33 AM [facility] NURSING PROGon 12-16-2020 NURSING PROG HNO ID: [id number] Author: Yashira LauRn) DEEPTHI Nova Service: Nursing [...] None Electronically Signed By: Yashira Nova RN [facility] PT EDon 12-16-2020 PT ED HNO ID: [id number] Author: Manohar LauRn) DEEPTHI Conn Service: Nursing [...] None Electronically Signed By: Manohar Conn RN [facility] NURSING PROGon 10-25-2020 NURSING PROG HNO ID: [id number] Author: Diego Abad RN Service: ? Author Type: Registered Nurse Type: Nursing Progress Note Filed: 10/25/2020 2:09 AM Note Text: Nursing Progress Note Patient Name: Nica Estrada [address] Location: [address] Daily Note: 2000: Assessment complete see NPR. Pt present w/ nausea Zofran given. Pain 8/10 PRN pain med given. 0100: Nausea concerned by pt. Paged for second like prevention. 0130: Compazine ordered/given. No cough or SOB at this time. Lap sites intact no bruising. No gas passed yet. This note was completed by: Diego Abad [facility] PLAN OF CAREon 10-25-2020 PLAN OF CARE HNO ID: [id number] Author: Davina Bonilla ([employer]) Service: Pharmacy Author Type: ? Type: Plan of Care Filed: 10/25/2020 2:56 PM Note Text: Pharmacy Discharge Medication Service: This patient has elected to receive their discharge prescriptions through the [facility] Bedside Prescription Delivery program. The prescriptions are currently being processed. A follow-up note will be entered once the prescriptions have been filled and delivered to the patient. Please contact me with any questions or updates to the patient's discharge medications. Davina Bonilla ([employer]) DCT Contact Info: [phone] [facility] PLAN OF CARE HNO ID: [id number] Author: Davina Bonilla ([employer]) Service: Pharmacy Author Type: ? Type: Plan of Care Filed: 10/25/2020 2:56 PM Note Text: LABORATORY MACHINIST BEDSIDE DELIVERY SURVEY 1. Patient to use [facility] Bedside Delivery - YES Insurance Information as follows: 2. Insurance card on file - YES 3. Credit card for payment - N/A [facility] PLAN OF CARE HNO ID: [id number] Author: Davina Bonilla ([employer]) Service: Pharmacy Author Type: ? Type: Plan [...] or your Primary Care Provider. Davina Bonilla ([employer]) PAGER: [phone] October 25, 2020 2:56 PM [facility] PROGRESSon 10-25-2020 PROGRESS HNO ID: [id number] Author: Presley Torrez Service: General Surgery Author [...] October 25, 2020 TIME: 7:02 AM Normal [facility] PROGRESS HNO ID: [id number] Author: Juliet Lilly Service: General Surgery Author [...] care Juliet Lilly MD General Surgery PGY1 [facility] PT EDon 10-25-2020 PT ED HNO ID: [id number] Author: Geoff Hector Service: Nutrition Therapy Author Type: Special Education Secretary Type: Patient Education Filed: 10/25/2020 12:04 PM [...] October 25, 2020 TIME: 12:04 PM PAGER: [phone] [facility] ANES POSTPROC EVALon 021 ANES POSTPROC EVAL HNO ID: [id number] Author: Brandon Stoddard Service: Anesthesiology Author Type: [...] October 24, 2020 TIME: 4:58 PM CSN: [id number] [facility] ANES PRE-OPon 10-24-2020 ANES PRE-OP HNO ID: [id number] Author: Colin Archer Service: Anesthesiology Author Type: [...] October 24, 2020 TIME: 1:18 PM CSN: [id number] [facility] NURSING PROGon 10-24-2020 NURSING PROG HNO ID: [id number] Author: Sridevi LauRn) Kong RN Service: Nursing Author Type: Registered Nurse Type: Nursing Progress Note Filed: 10/24/2020 6:56 PM Note Text: Nursing Progress Note Patient Name: Nica Estrada Patient Location: [place] [address] [address] Transfer Note: Patient transferred into room/unit PK325 in stable condition. Actions taken: No futher actions taken at this time. at bedside. Will continue to monitor and check with patient. This note was completed by: Sridevi Triana RN [facility] NURSING PROG HNO ID: [id number] Author: Gege LauRn) DEEPTHI Kenney Service: Nursing Author Type: Registered Nurse Type: Nursing Progress Note Filed: 10/24/2020 1:38 PM Note Text: PATIENT EDUCATION TOPIC: PROCEDURE / SURGERY: Pre-op Teaching: Protocols PATIENT NAME: Nica Estrada PATIENT LOCATION: OR [place]/ OR POOL READINESS TO LEARN COGNITIVE ABILITY: [...] None Electronically Signed By: Gege Kenney RN [facility] OPERATIVE NOon 10-24-2020 OPERATIVE NO HNO ID: [id number] Author: Ena Mcginnis Service: General Surgery Author Type: Physician Type: Operative Report Filed: 10/26/2020 11:07 AM Note Text: [facility] - Operative Report NICA ESTRADA : 1985 AGE: 35. SEX: F PATIENT TYPE: I HOSP SVC: GENS LOCATION: [facility] ATTENDING PHYSICIAN: Ena Mcginnis MD CSN NUMBER: [id number] DATE OF SURGERY/PROCEDURE: 10/24/2020 INCISION/PROCEDURE START TIME: 2:28 PM INCISION CLOSE/PROCEDURE END TIME: 4:31 PM PREOPERATIVE DIAGNOSIS: Morbid obesity, BMI of 42. POSTOPERATIVE DIAGNOSIS: 1. Morbid obesity. 2. Hiatal hernia. SURGEON: Ena Mcginnis MD IMPROVEMENT MANAGER: Presley Torrez MD. SURGERY/PROCEDURE: 1. Laparoscopic repair [...] The posterior cruroplasty was completed using 1 ndnqmr-nw-zytxt stitch using silk to tighten the sharri. [...] Torrez assisted in the absence of qualified surgical appliance fitter help. He created the pouch and created the jejunojejunostomy. Ena Mcginnis MD TA:[id number] [facility] Confirm Blood Typeon 021 ABO/RH(D) Positive Normal [facility] Comment on above: Performed By: #### C ONABO ####[facility] [place], [place] [phone] HISTORY PHYSICALon HISTORY PHYSICAL HNO ID: [id number] Author: Amanda Shane (Pa) Service: ? Author Type: Physician Brim Setter Type: HANDP Filed: 10/17/2020 2:58 PM Note [...] fevers. Neuro: No history of TIA's, stroke, BUSINESS CENTER REPRESENTATIVE tumor, impaired sensorium, hemiplegia, paraplegia or quadraplegia. No neurological symptoms or problems. Respiratory: asthma, uses rescue about once every few weeks; no current resp sx. Had acute bronchitis last Fall, flared asthma for a while but is better now. Has environmental allergies Cardiovascular: No history of HTN requiring medication, no history of angina, CHF, [place], cardiac surgery or stents. Denies rest pain, gangrene or revascularization/amputation for PVD. No history of cardiovascular symptoms or problems. GI: Positive for GERD, no other GI sx. : No history of dysuria, frequency or incontinence,, stones or chronic kidney disease DIRECTOR OF AUDIOLOGY: Negative for abnormal vaginal bleeding, abnormal vaginal [...] Have Been Initiated: preop lab orders in [facility] by surgeon Planned Anesthetic: General Instructions Given to Patient: Instructions located in the after visit summary. Patient given verbal and written preop instructions and voices comprehension and compliance. SIGNATURE: Amanda Shane PA-C PATIENT NAME: Nica Estrada DATE: October 17, 2020 TIME: 2:42 PM PAGER/CONTACT #: Normal [facility] Type and SCR (30D)on 021 ABO/RH(D) Positive Normal [facility] Comment on above: Performed By: #### T [id number] ####[facility] [place], [place] [phone] HOSPon 09-27-2020 [facility] Patient:Nica Estrada MRN: Height:5' 0 (1.524 [...] 44.1 % 10/17/2020 46.0 36.0 [facility] Marcella Saldana RN 10/13/2020 2:32 PM Signed [...] Strength Tylenol. Marcella Saldana RN Progress Notes ([address]): Ena Mcginnis MD 10/13/2020 5:31 PM Signed SURGERY PREOPERATIVE VISIT NOTE Name: Nica Estrada Medical Record: [id number] Encounter No.: [id number] Nica Estrada is a 35 year old [...] regarding unsatisfactory weight loss as well as care home weight regain. I have also discussed medical [...] on recommendations of the Governor of the [facility]. Although we will perform appropriate precautions to [...] patient. Ena Mcginnis MD Previous Version Normal [facility] HEPATITIS B SURFACE AB IMMUN ITY, QNon 08-11-2020 HEPATITIS B SURFACE AB IMMUNITY, QN >1000 Normal > OR = 10 [facility] Comment on above: Result Comment: Patient has immunity to hepatitis B virus. For additional information, please refer to http://education.[employer]/faq/HZB863 (This link is being provided for informational/ educational purposes only). Performed By: #### [id number] #### [facility]-[address], [address] [place] [id number] Supervisor Soakers: Sixto Chandler MD Vital Signs Date Time Vital Sign Value Performing Clinician Facility 10-16-2022 12:53-0500 Diastolic blood pressure 80 mm[Hg] Otis Burch [facility] 10-16-2022 12:53-0500 Heart rate 55 /min Otis Burch [facility] 10-16-2022 12:53-0500 Mean blood pressure 89 mm[Hg] Otis Burch [facility] 10-16-2022 12:53-0500 Respiratory rate 18 /min Otis Marcin [facility] 10-16-2022 12:53-0500 Systolic blood pressure 108 mm[Hg] Otis Marcin [facility] 08-28-2022 08:52-0500 Heart rate 70 /min Otis Marcin [facility] 08-28-2022 08:52-0500 SaO2% (BldA) [Mass fraction] 100 % Otis Marcin [facility] 08-28-2022 08:52-0500 Respiratory rate 16 /min Otis Marcin [facility] 08-28-2022 08:52-0500 Diastolic blood pressure 80 mm[Hg] Otis Marcin [facility] 08-28-2022 08:52-0500 Mean blood pressure 93 mm[Hg] Otis Marcin [facility] 08-28-2022 08:52-0500 Systolic blood pressure 121 mm[Hg] Otis Marcin [facility] 08-28-2022 08:46-0500 Heart rate 70 /min Otis Marcin [facility] 08-28-2022 08:46-0500 SaO2% (BldA) [Mass fraction] 100 % Otis Marcin [facility] 08-28-2022 08:46-0500 Body temperature 97.52 [degF] Otis Marcin [facility] 08-28-2022 08:46-0500 Diastolic blood pressure 69 mm[Hg] Otis Marcin [facility] 08-28-2022 08:46-0500 Mean blood pressure 80 mm[Hg] Otis Marcin [facility] 08-28-2022 08:46-0500 Systolic blood pressure 104 mm[Hg] Otis Marcin [facility] 08-28-2022 08:46-0500 Respiratory rate 16 /min Otis Marcin [facility] 08-28-2022 08:41-0500 Diastolic blood pressure 64 mm[Hg] Otis Marcin [facility] 08-28-2022 08:41-0500 Systolic blood pressure 102 mm[Hg] Otis Marcin [facility] 08-28-2022 08:40-0500 Heart rate 71 /min Otis Marcin [facility] 08-28-2022 08:40-0500 Respiratory rate 12 /min Otis Marcin [facility] 08-28-2022 08:40-0500 SaO2% (BldA) [Mass fraction] 100 % Otis Marcin [facility] 08-28-2022 08:35-0500 Respiratory rate 12 /min Otis Marcin [facility] 08-28-2022 08:30-0500 Respiratory rate 12 /min Otis Marcin [facility] 08-28-2022 07:17-0500 Mean blood pressure 78 mm[Hg] Otis Marcin [facility] 08-28-2022 07:17-0500 Respiratory rate 16 /min Otis Marcin [facility] 08-28-2022 07:17-0500 Body temperature 98.24 [degF] Otis Marcin [facility] 04-12-2022 14:47-0400 Body height 152.4 cm Lazara Woods MD Work Phone: [facility] 04-12-2022 14:47-0400 Body temperature 98.91 [degF] Lazara Woods MD Work Phone: [facility] 04-12-2022 14:47-0400 Body weight 55.52 kg Lazara Woods MD Work Phone: [facility] 04-12-2022 14:47-0400 Diastolic blood pressure 92 mm[Hg] Lazara Woods MD Work Phone: [facility] 04-12-2022 14:47-0400 Heart rate 65 /min Lazara Woods MD Work Phone: [facility] 04-12-2022 14:47-0400 Systolic blood pressure 140 mm[Hg] Lazara Woods MD Work Phone: [facility] 03-01-2022 14:59-0400 Diastolic blood pressure 86 mm[Hg] Mixon SALAM [facility] 03-01-2022 14:59-0400 Heart rate 52 /min Mixon SALAM [facility] 03-01-2022 14:59-0400 Systolic blood pressure 130 mm[Hg] Mixon SALAM [facility] Encounters Encounter Date Encounter Type Care Provider Facility Start: 04-29-2023 End: 04-30-2023 ambulatory Aaliyah Hampton MD Facility:[facility] Start: 04-15-2023 End: 04-16-2023 ambulatory Aaliyah Hampton MD Facility:[facility] Start: 04-01-2023 End: 04-02-2023 ambulatory Aaliyah Hampton MD Facility:[facility] Start: 03-25-2023 End: 03-26-2023 ambulatory Aaliyah Hampton MD Facility:[facility] Start: 10-16-2022 End: 10-17-2022 ambulatory Otis Burch Facility:[facility] Start: 10-16-2022 End: 10-16-2022 Pain Management Otis Burch [facility] Start: 08-28-2022 End: 08-29-2022 ambulatory Otis Burch Facility:[facility] Start: 08-28-2022 End: 08-28-2022 Pain Management Otis Burch [facility] Start: 05-04-2022 End: 05-05-[address] [...] Start: 03-01-2022 End: 03-02-2022 ambulatory Oral DIETZ Facility:[facility] Start: 03-01-2022 End: 03-01-2022 Patient encounter procedure Oral DIETZ [facility] Start: 11-10-2021 End: 11-11-2021 ambulatory PETEY BURNETT Facility:[facility] Start: 05-24-2021 End: 06-28-[address] DOCTOR BEAR Facility:[facility] Procedures Date Procedure Procedure Detail Performing Clinician Start: 08-28-2022 Radiofrequency ablation of medial branch of lumbar nerve using fluoroscopic guidance Otis Burch Comment on above: L4/5 +L5/S1 40-50% relief Start: 10-17-2020 Antibody screen Comment on above: Performed By: #### [id number] ####Warren H [id number] [place] [phone] Start: 05-09-2020 Adult depression screening assessment Lazara Woods MD Work Phone: Start: 04-18-2020 Colonoscopy Mixonkaylynn DIETZ Start: 04-18-2020 Esophagogastroduodenoscopy [employer] [employer] section [employer] [employer] Cholecystectomy [employer] [employer] Plan of Treatment Date Care Activity Detail Author Start: 05-17-2022 Influenza vaccination INFLUENZA (#1) [facility] Start: 05-09-2021 Adult depression screening assessment DEPRESSION SCREENING [facility] Start: 04-10-2021 COVID-19 VACCINE (3 - Booster for Moderna series) COVID-19 VACCINE (3 - Booster for Moderna series) [facility] Start: 2013 HPV TESTING HPV TESTING [facility] Start: 02-22-2004 PAP TESTING PAP TESTING [facility] Start: 2002 Urine microalbumin profile DTAP,TDAP,TD (1 - Tdap) [facility] Start: 2001 ANNUAL PCP TEAM PHONE REPRESENTATIVE 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 VISIT ANNUAL PCP TEAM CHRONIC DISEASE VISIT [facility] Start: 2001 BP CONTROLLED (<130/80) BP CONTROLLE D (<130/80) [facility] Start: 2001 HEPATITIS C SCREENING HEPATITIS C SC RAPHAEL [facility] Start: 2001 HIV SCREENING HIV SCREENING [facility] Start: 2001 SPIROMETRY SPIROMETRY [facility] Start: 1989 PNEUMOCOCCAL (1 - PCV) PNEUMOCOCCAL (1 - PCV) [facility] Immunizations Immunization Date Immunization Notes Care Provider Trudy gay 09-28-2020 COVID-19 vaccine, fu ll dose (MODERNA) Lazara Woods MD Work Phone: [facility] 07-01-2020 influenza, injectabl e, quadrivalent, preservative free Lazara Woods MD Work Phone: [facility] 06-17-2020 influenza virus vacc ine, unspecified formulation Lazara Woods MD Work Phone: [facility] Payers Date Payer Category Payer Private Health Insurance 2022 Medicaid 2022 Unknown 2022 Unknown [id number] 2018 Medicaid UHC MEDICAID UHC [employer]AN MEDICAID [id number] 2018-Present [phone] [address] [place] [address] Medicaid [id number] 1983 Unknown [id number] 2.840.1.475907.3.579.2. 59 1983 Unknown [id number] 2.0.1.451028.3.579.2. 59 1983 Unknown [id number] 2.840.1.059711.3.579.2. 59 1983 Unknown [id number] 2.840.1.171903.3.579.2. 59 1983 Unknown [id number] 2.840.1.153496.3.579.2. 59 1983 Unknown [id number] 2.840.1.977759.3.579.2. 593 1983 Unknown [id number] 2.840.1.432865.3.579.2. 593 1983 Unknown [id number] 2.16.840.1.514009.3.579.2. 727 1983 Unknown [id number] 2.16.840.1.032442.3.579.2. 727 1983 Unknown [id number] 2.16.840.1.586557.3.579.2. 727 1983 Unknown [id number] 2.16.840.1.319272.3.579.2. 727 1983 Unknown [id number] 2.16.840.1.082782.3.579.2. 196 1983 Unknown [id number] 2.16.840.1.211474.3.579.2. 196 1983 Unknown [id number] 2.16.840.1.832518.3.579.2. 196 1983 Unknown [id number] 2.16.840.1.152099.3.579.2. 196 1959 Unknown [id number] Social History Date Type Detail Facility Start: 06-27-2017 End: 03-01-2022 Tobacco smoking status Never smoked tobacco (finding) [facility] Tobacco smoking status Never [facility] Sex Assigned At Female [facility] Start: 06-27-2017 Tobacco use and exposure Smokeless tobacco non-user [facility] Start: 04-12-2022 Alcohol intake Current drinke r of alcohol (finding) [facility] Start: 04-12-2022 Alcohol intake [facility] Start: 01-05-2020 History SDOH Alcohol Frequency 3 [facility] Start: 01-05-2020 History SDOH Alcohol Std Drinks 1 [facility] Start: 10-17-2020 History SDOH Alcohol Comment once a month, 1 drink [facility] Start: 1985 Sex Assigned At Not on file C [facility] Start: 04-01-2022 End: 04-11-2022 Exposure to SARS-CoV-2 (event) Not sure [facility] Functional Status Date Assessment Result Facility 10-16-2022 Functional Status N/A [facility] 08-28-2022 Functional Status N/A [facility] Clinical Notes 05-04-2020 to 10-16-2022 [...] concerns. Patient agrees with plan of care. [facility]12-13-2022 Note [id number]:127[facility] 04-12-2022 NoteHNO ID: [id number] Author: ST Rick Service: ? Author Type: Printer Technician Type: Progress Notes Filed: 04/12/2022 3:50 PM Note Text: DATE OF PHOTOS: 04/12/2022 Body Part: Breasts, Abdomen, Leg(s) and Arms ST Rick April 12, 2022 3:49 [facility]07-28-2022 History of Present illness Narrative* ST Rick - 04/12/2022 3:49 PM EDT DATE OF PHOTOS: 04/12/2022 Body Part: Breasts, Abdomen, Leg(s) and Arms ST Rick April 12, 2022 3:49 PM [facility]22 NoteHNO ID: [id number] Author: Lazara Woods MD Service: ? Author [...] this visit. ALLERGIES A (more content not included)...[facility]07-27-2022 History of Present illness Narrative* Lazara Woods [...] Past Histories independently gathered by the clinical support technician and the remaining scribed note accurately describes [...] weeks. Lazara Woods MD [facility] Evaluation + Plan note Diagnostic Tests Pending [...] Level 04/25/21 * Vitamin B12 Level 04/25/21 [facility]02-25-2022 NoteHNO ID: [id number] Author: Ena Mcginnis MD Service: ? Author [...] mcg, Iron 45-60 mg and calcium citrate 7886-6496 mg/day PHYSICAL EXAMINATION: Weight loss: BMI 23.2 [...] bypass Plan: ? Doing great ? EGD Ean Mcginnis [facility]09-30-2021 NoteHNO ID: [id number] Author: Ena Mcginnis MD Service: ? Author [...] mcg, Iron 45-60 mg and calcium citrate 0105-8097 mg/day ? COMPLETE REVIEW OF SYSTEMS Constitutional--Negative [...] which included preparing to see the patient, [id number] patient care and completing clinical documentation.[facility]08-10-2021 Evaluation + Plan note Future Scheduled Tests Laboratory* Copper Level 04/25/21 * Zinc Level 04/25/21 * Vitamin A Level 04/25/21 * Vitamin B1 04/25/21 * Vitamin B6 Lvl 04/25/21 * Vitamin D 25 Hydroxy 04/25/21 * Ferritin 04/25/21 * Folate Level 04/25/21 * Iron Level 04/25/21 * Magnesium Level 04/25/21 * Vitamin B12 Level 04/25/[address] [facility] [id number] History of Past illness Narrative* Problem Noted Date Resolved Date Morbid obesity 05/04/2020 01/23/2021 documented as of this encounter (statuses as of 04/12/2022) [facility]08-19-2020 History of Past illness Narrative* Problem Noted Date Resolved Date Morbid obesity 05/04/2020 01/23/2021 documented as of this encounter (statuses as of 04/12/2022) [facility] Future Appointments Appointment Date:09/24/2022 10:30:00 AM Scheduled Provider:Sridevi Goetz PA-C Location:[facility] Appointment Type:Pain Management - [facility] Diagnosis Hx of bariatric surgery- Primary Bariatric surgery status Excess skin [facility] N[facility] No data available for this section [facility] Hospital Discharge instructions No data available for this section [facility] Progress note No data available for this section [facility] Summary Purpose Family History No Family History Records FoundNo Family History Records FoundNo Family History Records FoundNo Family History Records FoundNo Family History Records FoundNo Family History Records FoundNo Family History Records FoundNo Family History Records Found Advance Directives No Advanced Directives Records FoundDocuments on File Type 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 Note HNO ID: [id number] Author: Devonte Zurita Service: Anesthesiology Author Type: Nurse Freight Forwarder Type: Anesthesia Procedure Notes Filed: 10/24/2020 2:25 PM Note Text: ANESTHESIOLOGY PROCEDURE NOTE Airway General Information Procedure Start Time/Medication Administration: 10/24/2020 2:14 PM Patient location during procedure: OR Timeout Performed Pre-procedure: timeout performed Patient identity confirmed: arm band, care pilot steam yacht and patient Staffing Anesthesiologist: Brandon Stoddard BOUNTY HUNTER: Pallavi Zurita Performed by: SHAVON Indications and [...] (more content not included)... Note HNO ID: [id number] Author: Devonte Zurita Service: Anesthesiology Author Type: Nurse Freight Forwarder Type: Anesthesia Procedure Notes Filed: 10/24/2020 2:26 [...] October 24, 2020 TIME: 2:26 PM CSN: [id number] Note HNO ID: [id number] Author: Douglas Torrez Service: General Surgery Author Type: Physician Type: Brief Op Note Filed: 10/24/2020 4:36 PM Note Text: BRIEF OPERATIVE NOTE [facility] LOG ID: [id number] SURGERY/PROCEDURE DATE: 10/24/2020 INCISION/PROCEDURE START TIME: 2:28 PM INCISION CLOSE/PROCEDURE END TIME: 4:31 PM SURGEON(S) AND IMPROVEMENT MANAGER(S): Surgeon(s) and Role: * Ena Mcginnis - Primary * Jarad Clarke (Res) DO Steven - Resident - Assisting * Presley Torrez - Resident - Assisting No Additional Staff PROCEDURES AND ANESTHESIA: Procedure(s) and Anesthesia Type: * LAPAROSCOPIC GASTRIC RESTRICTIVE SURG W/ BYPASS AND TREVOR-EN-Y Procedure Findings Note HNO ID: [id number] Author: Devonte Zurita Service: Anesthesiology Author Type: Nurse Freight Forwarder Type: Anesthesia Procedure Notes Filed: 10/24/2020 2:25 PM Note Text: ANESTHESIOLOGY PROCEDURE NOTE Airway General Information Procedure Start Time/Medication Administration: 10/24/2020 2:14 PM Patient location during procedure: OR Timeout Performed Pre-procedure: timeout performed Patient identity confirmed: arm band, care pilot steam yacht and patient Staffing Anesthesiologist: Brandon Stoddard BOUNTY HUNTER: Pallavi Zurita Performed by: SHAVON Indications and [...] (more content not included)... Note HNO ID: [id number] Author: Devonte Zurita Service: Anesthesiology Author Type: Nurse Freight Forwarder Type: Anesthesia Procedure Notes Filed: 10/24/2020 2:26 [...] October 24, 2020 TIME: 2:26 PM CSN: [id number] Note HNO ID: [id number] Author: Douglas Torrez Service: General Surgery Author Type: Physician Type: Brief Op Note Filed: 10/24/2020 4:36 PM Note Text: BRIEF OPERATIVE NOTE [facility] LOG ID: [id number] SURGERY/PROCEDURE DATE: 10/24/2020 INCISION/PROCEDURE START TIME: 2:28 PM INCISION CLOSE/PROCEDURE END TIME: 4:31 PM SURGEON(S) AND IMPROVEMENT MANAGER(S): Surgeon(s) and Role: * Ena Mcginnis - [...] DATE CREATED AUTHOR AUTHOR'S ORGANIZ ATION 10/18/2020 [facility] DATE CREATED AUTHOR AUTHOR'S ORGANIZ ATION 12/17/2020 [facility] DATE CREATED AUTHOR AUTHOR'S ORGANIZ ATION 06/21/2021 [facility] DATE CREATED AUTHOR AUTHOR'S ORGANIZ ATION 04/16/2022 [facility] DATE CREATED AUTHOR AUTHOR'S ORGANIZ ATION 05/10/2022 [facility] DATE CREATED AUTHOR AUTHOR'S ORGANIZ ATION 12/21/2022 [facility] DATE CREATED AUTHOR AUTHOR'S ORGANIZ ATION 05/07/2023 [facility] Care Team (unrecognized sect ion and content) Guide Setter Relationship Specialty Start Date End Date Vernon Castano Zuleyka III, DO [address] [place] [address] PCP - General Family Practice 10/04/20 Guide Setter Relationship Specialty Start Date End Date Vernon Castano Zuleyka III, DO [address] [place] [address] PCP - General Family Practice 10/04/20 Source Comments (unrecognize d section and content) In the event this informatio n is protected by the Federal Confidentiality of Alcohol and Drug Abuse Patient Records regulations: The Federal rules restrict any use of the information to criminally investigate or prosecute any alcohol or drug abuse patient.[facility] the event this information is protected by the Federal Confidentiality of Alcohol and Drug Abuse Patient Records regulations: The Federal rules restrict any use of the information to criminally investigate or prosecute any alcohol or drug abuse patient.[facility] Reason for Visit (unrecogniz ed section and [...] BE BASED ON THE PRIMARY CLINICAL RECORDS. [facility]. provides no warranty or guarantee of the accuracy or completeness of information in this document.
[2023-09-30 09:17] LABS: HCG Qualitative NEGATIVE (NEGATIVE)
[2023-09-30 09:42] VITALS: BP 129/88; PULSE 67; RESP 16; TEMP 36.6; O2SAT 100
[2023-09-30 10:24] VITALS: BP 126/87; PULSE 65; RESP 18; O2SAT 100
[2023-09-30 10:34] VITALS: BP 134/91; PULSE 73; RESP 18; O2SAT 100
[2023-09-30] MEDS: LIDOCAINE HCL 2% 400 MG/20 ML MDV 14 ML INJ (10:37)
[2023-09-30] MEDS: BUPIVACAINE HCL 0.25% PF 25 MG/10 ML VIAL 4 ML INJ (10:37)
--- NOTE | 2023-09-30 10:37 | P.ON_ITS ---
Date of procedure: 09/30/23 Pre-op diagnosis: Lumbar spondylosis Post-op diagnosis: same as pre-op Procedure: Procedure: Bilateral L4-5, L5-S1 radiofrequency ablation Medications: Bupivacaine 0.25% 6cc, lidocaine 2% 5cc, kenalog 80mg The patient was seen and examined in the preoperative holding area.? The site was marked.? Written informed consent was obtained and placed on the chart.? The patient was brought to the medical procedure unit and placed in the prone position.? A timeout was completed verifying correct patient, procedure, positioning, and special requirements.? The skin overlying the target points, the designated medial branch, were prepped and draped in the usual sterile fashion.? The target point was achieved with a 20-gauge 15 cm with a 10 mm curved active tip radiofrequency cannula under direct fluoroscopic visualization.? The needle was inserted at level L4 on the right side. Needle tip position was confirmed with lateral fluoroscopic position.? Motor stimulation was carried out at 2 Hz up to 5 volts with the absence of extremity activity.? This was repeated at level L5, S1 on right side.?? Sensory stimulation was carried out.? Concordant pain was realized at the above- mentioned sites.? Then radiofrequency lesioning was carried out times 90 seconds at 80 degrees times 2 lesions at each level.? The radiofrequency probe was removed prior to cannula removal.? The above-mentioned injectate was placed in 1 mL increments.? The needle was removed. The same procedure, with the same steps, was then completed on the left side at the same levels. Insertion sites were covered.? The patient was taken to the postoperative recovery area and monitored for an appropriate length of time before being found suitable for discharge in the company of a responsible adult. Anesthesia: Local Surgeon: Aaliyah Hampton Pathology: none sent Condition: stable Disposition: no change
[2023-09-30] MEDS: TRIAMCINOLONE ACETONIDE 40 MG/ML VIAL 80 MG INJ (10:38)
== END 2023-09-30 10:40 | disposition home or self-care (01) ==
LOC: SURGOUT 08:50
PROVIDERS: PCP Physician Assistant; Visit Provider Anesthesiology
DX: M47.816 Spondylosis without myelopathy or radiculopathy, lumbar region (principal)
CPT/HCPCS: 36415; 64635; 64636; 84703; J0665; J3301

== ENCOUNTER 2023-11-04 13:06 | Outpatient (OUT) | payer OTHER, SELFPAY ==
--- OUTSIDE RECORDS SUMMARY | 2023-11-04 13:12 | XMS_ITS | CCD ---
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 Name Role Phone Vernon Castano III Primary [...] Primary Care Unavailable HORTENCIA, PETEY Consulting Unavailable Berta KOENIG, Andrius Arellano Attending Unavailable Gicourtney KOENIG, Andrius Vmil Attending Unavailable Berta KOENIG, Andrius Eileen Attending Unavailable Berta KOENIG, Andrius Vytkaycee Attending Unavailable Berta KOENIG, Andrius Vytkaycee Attending Unavailable Vernon Castano Referring Unavailable NILLZack R Attending Unavailable Allergies Allergy Classification Reported Allergen(s) Allergy Type Date of Onset Reaction(s) Facility (8 sources) Latex; Translations: [latex] Drug allergy 4 Cutaneous eruption (morphologic abnormality), Other: See Comments [facility] (12 sources) SUMAtriptan; Translations: [sumatriptan] Drug Allergy 7 Other: See Comments [facility] (1 source) Amitriptyline Drug Allergy [facility] (1 source) NSAIDs Drug allergy (disorder) [facility] (1 source) Plasmin Drug Allergy [facility] Medications Current Medications Medication Drug Class(es) Dates Sig (Normalized) Sig (Original) bisacodyl 5 mg delayed release oral tablet (2 sources) Stimulant Laxative Start: 01-25-2021 take 1 tablet by mouth once daily Dulcolax 5 mg Tab-EC 5 mg = 1 tab(s), Oral, Daily, # 50 tab(s), Refills(s) 1, Pharmacy: [facility], 155, cm, 01/25/21 14:00:00 EDT, Height/Length Dosing, 77.7, kg, 01/25/21 14:00:00 EDT, Weight Dosing Start Date: 01/25/21 Status: Ordered dicyclomine hydrochloride 10 mg oral capsule (6 sources) Anticholinergic Start: 03-01-2022 take 4 capsules by mouth four times daily as needed for pain Bentyl 10 mg Cap 40 mg, Oral, QID, PRN Pain, # 45 cap(s), Refills(s) 4, Pharmacy: [facility], 155, cm, 03/01/22 15:01:00 EDT, Height/Length [...] Ordered Start: 12-28-2020 take 1 capsule by mo [facility] once daily propranolol ER (INDERAL LA) 120 [...] on above: Take 1 capsule by mo [facility] three times daily for 14 days. [...] Comment on above: Take [facility] 8 hours as needed for Nausea/Vomiting. [...] 01-05-2020 Chronic Other aftercare (1 source) Other [facility] (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 therapy; Translations: [OTH [facility] CURRENT DRUG THERAPY] Onset: 2 Episodic Other [...] Test Name Value Interpretation Reference Range Facility Physician Referralon 024 Physician Referral [id number] Normal [facility] PREG HCG QUALon 04-20-2022 , QUAL Negative Normal NEGATIVE [facility] Comment on above: Performed By: #### P REG #### [facility] [address] [place] [address] Dr. Refugio Apple CNOVon 04-12-2022 CNOV Office Visit (PLASMN ) NICA ESCAMILLA ([id number]) 1985 F Date Time Provider Department 04/12/22 2:15 PM LAZARA VOGEL During your visit today, we recorded the following information about you: Temperature Pulse Blood pressure Weight 98.9 degrees 65/minute 140/92 55.5 kg Height 1.524 m Lazara Vogel MD 04/12/2022 4:01 PM Signed Plastic Surgery [...] []sleep disturbance []mood disorder []recent psychosocial stressors HEMATOLOGY/LYMPHOLOGY : []prolonged bleeding []bruising easily []swollen nodes ENDOCRINE: [...] acidophilus (PROBIOTIC ORAL) Take by mouth. - multivit-min/iron/fol ic acid/K (BARIATRIC MULTIVITAMINS ORAL) Take by mouth. [...] times d (more content not included)... Normal [facility] PREG HCG QUALon 04-06-2022 , QUAL Negative Normal NEGATIVE [facility] Comment on above: Performed By: #### P REG #### [facility] [address] [place] [address] Dr. Refugio Apple CHEMISTRYOrdered By: SYSTEM SYSTEM on 03-01-2022 25-hydroxyvitamin D3 [Mass/Vol] 37.3 ng/mL Normal 30.0 - 100.0 ng/mL [facility] Remisol Iron [Mass/Vol] 48 ug/dL Normal 35 - 153 mcg/dL [facility] Remisol Magnesium [Mass/Vol] 1.9 mg/dL Normal 1.3 - 2 .4 mg/dL [facility] Remisol CHEMISTRYOrdered By: Deanna miller on 03-01-2022 Cobalamin (Vitamin B12) [Mass/Vol] pg/mL Normal 50 - 1500 pg/mL [facility] Remisol Ferritin [Mass/Vol] 19 ng/mL Normal 11 - 307 ng/mL [facility] Remisol Folate [Mass/Vol] ng/mL Normal >=6.7ng/mL [facility] Re misol CNOVon 11-10-2021 CNOV Office Visit (GENSSM ) NICA ESCAMILLA ([id number]) 1985 F Date Time Provider Department 11/10/21 10:20 AM ENA MURRAY During your visit today, we recorded the following information about you: Temperature Pulse Respiration Blood pressure 97 degrees 56/minute 16/minute 117/79 Weight 53.9 kg Ena Murray MD 11/13/2021 5:34 PM Signed Assessment BMI [...] mcg, Iron 45-60 mg and calcium citrate 4399-9238 mg/day PHYSICAL EXAMINATION: Weight loss: BMI 23.2 [...] Plan: ? Doing great ? EGD Ena Murray MD Referring Provider: ENA MURRAY [[id number]] Allergies As of Date: 11/10/2021 Noted Allergy [...] acidophilus (PROBIOTIC ORAL) Take by mouth. - multivit-min/iron/fol ic acid/K (BARIATRIC MULTIVITAMINS ORAL) Take by mouth. [...] JUANITA (a (more content not included)... Normal [facility] CONon 11-10-19 [facility] CON EXAMINATION: [facility] CON HISTORY: Cervical spondylosis without myelopathy COMPARISON: [...] by: MANOHAR ALONZO Date: 2021-11-10 14:28 [facility] (HIA245 [facility] NICA ESCAMILLA ([id number]) 1985 F Date Time Provider Department 06/15/21 11:30 AM ENA MURRAY [id number] During your visit today, we recorded the following information about you: Temperature Blood pressure Weight Height 97.4 degrees 133/89 61.2 kg 1.524 m Emily Aileen Peters 06/15/2021 11:41 AM Signed What is the [...] call directly to schedule upper endoscopy at [phone]. Please leave a message if you receive the voicemail with your name, birthday, and reason for calling. Please expect a call or MyChart message with appointment information and instructions. What [...] is especially important if you have had glxcz-wxpikytdb-lttop surgery in the past. How is an [...] black coffee, black tea, apple juice, nany nghai, 7UP?, silvana, Matthew-Aid?, Gatorade?, Hi-C? and popsicles. [...] minutes for (more content not included)... Normal [facility] US breast RT limitedon 05-12 US breast RT limited [facility] [place] [address] Ultrasound Report Signed Patient: Nica Escamilla MR#: [id number] 7 : 1985 Acct:[id number] Age/Sex: 36 / F ADM Date: 05/12/21 Loc: [facility] Room: Type: [facility] Attending Dr: GAMAL Woods Ordering Provider: MARTI Loera Date of Service: 05/12/21 US/US breast RT limited: RT LUMP Copies to: MARTI Loera LIMITED RIGHT BREAST ULTRASOUND CLINICAL DATA: Palpable [...] Kaye Howell M.D.05/12/2021 10:45 AM Dictation Location: [facility] Tech: Ronit House Transcribed By: RANCHO 05/12/21 1045 Dictated By: Kaye Howell MD 05/12/21 104 Signed By: 05/12/21 1045 [facility] HISTORY PHYSICALon HISTORY PHYSICAL HNO ID: [id number] Author: Kalpana Otero MD Service: General Surgery [...] 8 hours as needed for Nausea/Vomiting. 12/13/2020 BUTALBITAL-ACETAMINOP HEN ORAL Take by mouth. Unknown at Unknown [...] SIGNATURE: Kalpana Otero MD PATIENT NAME: Nica Escamilla DATE: December 16, 2020 TIME: 9:33 AM Normal [facility] NURSING PROGon 12-16-2020 NURSING PROG HNO ID: [id number] Author: Yashira (Rn) DEEPTHI Nova Service: Nursing Author Type: Registered Nurse Type: Nursing Progress Note Filed: 12/16/2020 9:26 AM Note Text: PATIENT EDUCATION TOPIC: PROCEDURE / SURGERY: EGD PATIENT NAME: Nica Escamilla PATIENT LOCATION: [facility] ENDO POOL/[facility] ENDO POOL [...] None Electronically Signed By: Yashira Nova RN [facility] PT EDon 12-16-2020 PT ED HNO ID: [id number] Author: Manohar (Rn) DEEPTHI Conn Service: Nursing Author Type: Registered Nurse Type: Patient Education Filed: 12/16/2020 11:03 AM Note Text: PATIENT EDUCATION TOPIC: PROCEDURE / SURGERY: Post Procedure Teaching: PATIENT NAME: Nica Escamilla PATIENT LOCATION: ENDO [place]/ [place]O [place] READINESS TO LEARN COGNITIVE ABILITY: Alert and [...] None Electronically Signed By: Manohar Conn RN [facility] NURSING PROGon 10-25-2020 NURSING PROG HNO ID: [id number] Author: Diego Abad RN Service: ? Author Type: Registered Nurse Type: Nursing Progress Note Filed: 10/25/2020 2:09 AM Note Text: Nursing Progress Note Patient Name: Nica Escamilla Patient Location: [address] Daily Note: 2000: Assessment complete see NPR. Pt present w/ nausea Zofran given. Pain 8/10 PRN pain med given. 0100: Nausea concerned by pt. Paged for second like prevention. 0130: Compazine ordered/given. No cough or SOB at this time. Lap sites intact no bruising. No gas passed yet. This note was completed by: Diego Abad [facility] PLAN OF CAREon 10-25-2020 PLAN OF CARE HNO ID: [id number] Author: Davina Bonilla ([employer]) Service: Pharmacy Author Type: ? Type: Plan of Care Filed: 10/25/2020 2:56 PM Note Text: Pharmacy Discharge Medication Service: This patient has elected to receive their discharge prescriptions through the [facility] Bedside Prescription Delivery program. The prescriptions are currently being processed. A follow-up note will be entered once the prescriptions have been filled and delivered to the patient. Please contact me with any questions or updates to the patient's discharge medications. Davina Bonilla ([employer]) DCT Contact Info: [id number] [facility] PLAN OF CARE HNO ID: [id number] Author: Davina Bonilla ([employer]) Service: Pharmacy Author Type: ? 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 Patient to use [facility] Bedside Delivery - YES Insurance Information as follows: 2. Insurance card on file - YES 3. Credit card for payment - N/A [facility] PLAN CARE HNO ID: [id number] Author: Davina Bonilla ([employer]) Service: Pharmacy Author Type: ? Type: Plan of Care Filed: 10/25/2020 2:56 PM Note Text: PHARMACY BEDSIDE DELIVERY SERVICE Patient Name: Nica Escamilla The marked outpatient medications were filled and delivered bedside. Medication List START taking these medications oxyCODONE IR 5 mg immediate release tabletX Commonly known as: ROXICODONE Take 1 tablet by mouth every 8 hours as needed for Pain for up to 3 days. CONTINUE taking these medications BUTALBITAL-ACETAMINOP HEN ORAL gabapentin 100 mg capsule Commonly known [...] or your Primary Care Provider. Davina Bonilla ([employer]) PAGER: [phone] October 25, 2020 2:56 PM [facility] PROGRESSon 10-25-2020 PROGRESS HNO ID: [id number] Author: Presley Torrez Service: General Surgery Author [...] Discharge today To be discussed with Dr. Murray SIGNATURE: Presley Torrez MD PATIENT NAME: Nica Escamilla DATE: October 25, 2020 TIME: 7:02 AM [facility] PROGRESS HNO ID: [id number] Author: Juliet Lilly Service: General Surgery Author Type: Resident Type: Progress Notes Filed: 10/25/2020 3:06 AM Note Text: POST OPERATIVE CHECK Patient Name: Nica Escamilla SERVICE DATE: 10/24/2020 PRIMARY SERVICE: General Surgery [...] palpable. No hematuria. ASSESSMENT AND PLAN: Ms. Escamilla is a 35 year old female POD 0 s/p RYGB for Obesity. She is doing well with complaints of nausea with moderate response to Zofran. Plan: - Continue pain control w/ multimodal pain regimen - PRN compazine added - Pt hemodynamically stable. Continue to monitor. - Clinical exam appropriate for immediate post-op period - Continue routine post-operative care Julite Lilly MD General Surgery PGY1 [facility] PT EDon 10-25-2020 PT ED HNO ID: [id number] Author: Geoff Hector Service: Nutrition Therapy Author Type: Cytology Supervisor Type: Patient Education Filed: 10/25/2020 12:04 PM [...] units SIGNATURE: GEOFF HECTOR DTR PATIENT NAME: Niac Escamilla DATE: October 25, 2020 TIME: 12:04 PM PAGER: [phone] [facility] ANES POSTPROC EVALon 021 ANES POSTPROC EVAL HNO ID: [id number] Author: Brandon Stoddard Service: Anesthesiology Author Type: Anesthesiologist Type: Anesthesia Postprocedure Evaluation Filed: 10/24/2020 4:58 PM Note Text: POST ANESTHESIA EVALUATION NOTE : 1985 Procedure Summary Date: 10/24/20 Room / Location: OR05 / OR Anesthesia Start: 1402 Anesthesia Stop: 1643 Procedure: LAPAROSCOPIC GASTRIC RESTRICTIVE SURG W/ BYPASS AND TREVOR-EN-Y Morbid obesity (HCC) (Morbid obesity (HCC) [E66.01]) Surgeons: Ena Murray Responsible Provider: Brandon Stoddard Anesthesia Type: general [...] SIGNATURE: Brandon Stoddard MD PATIENT NAME: Nica Escamilla DATE: October 24, 2020 TIME: 4:58 PM CSN: [id number] [facility] ANES PRE-OPon 10-24-2020 ANES PRE-OP HNO ID: [id number] Author: Colin Archer Service: Anesthesiology Author Type: Anesthesiologist Type: Anesthesia Preprocedure Evaluation Filed: 10/24/2020 1:20 PM Note Text: ANESTHESIOLOGY DAY OF SURGERY NOTE : 1985 Procedure(s) (LRB): LAPAROSCOPIC GASTRIC RESTRICTIVE SURG W/ BYPASS AND TREVOR-EN-Y (N/A) Surgeon(s): Ena Murray Estimated body mass index is 41.79 kg/m? [...] mouth every 6 hours as needed. - BUTALBITAL-ACETAMINOP HEN ORAL Take by mouth. I have interviewed and examined the patient. I have reviewed the medical record and/or the pre-anesthesia evaluation, pertinent labs, and test results. This contains updated information obtained within 48 hours of Surgery/Procedure. SIGNATURE: Colin Archer MD PATIENT NAME: Nica Escamilla DATE: October 24, 2020 TIME: 1:18 PM CSN: [id number] [facility] NURSING PROGon 10-24-2020 NURSING PROG HNO ID: [id number] Author: Sridevi LauRn) DEEPTHI Triana Service: Nursing Author Type: Registered Nurse Type: Nursing Progress Note Filed: 10/24/2020 6:56 PM Note Text: Nursing Progress Note Patient Name: Nica Escamilla Patient Location: [place] [address] [address] Transfer Note: Patient transferred into room/unit PK325 in stable condition. Actions taken: No futher actions taken at this time. at bedside. Will continue to monitor and check with patient. This note was completed by: Sridevi Triana RN [facility] NURSING PROG HNO ID: [id number] Author: Gege LauRnYenni Kenney RN Service: Nursing Author Type: Registered Nurse Type: Nursing Progress Note Filed: 10/24/2020 1:38 PM Note Text: PATIENT EDUCATION TOPIC: PROCEDURE / SURGERY: Pre-op Teaching: Protocols PATIENT NAME: Nica Escamilla PATIENT LOCATION: [facility] OR POOL/[facility] OR POOL READINESS TO LEARN COGNITIVE ABILITY: Alert and oriented MOTIVATION TO LEARN: Interested FAMILY SUPPORT: None - Unavailable/disintere sted INSTRUCTION PROVIDED TO: Patient PATIENT LEARNS BEST [...] None Electronically Signed By: Gege Kenney RN [facility] OPERATIVE NOon 10-24-2020 OPERATIVE NO HNO ID: [id number] Author: Ena Murray Service: General Surgery Author Type: Physician Type: Operative Report Filed: 10/26/2020 11:07 AM Note Text: [facility] - Operative Report NICA ESCAMILLA : 1985 AGE: 35. SEX: F PATIENT TYPE: I HOSP SVC: GENS LOCATION: [facility] ATTENDING PHYSICIAN: Ena Murray MD CSN NUMBER: [id number] DATE OF SURGERY/PROCEDURE: 10/24/2020 INCISION/PROCEDURE START TIME: 2:28 PM INCISION CLOSE/PROCEDURE END TIME: 4:31 PM PREOPERATIVE DIAGNOSIS: Morbid obesity, BMI of 42. POSTOPERATIVE DIAGNOSIS: 1. Morbid obesity. 2. Hiatal hernia. SURGEON: Ena Murray MD STATIONARY FIREMAN: Presley Torrez MD. SURGERY/PROCEDURE: 1. Laparoscopic repair [...] The posterior cruroplasty was completed using 1 pzeufr-cm-ytzum stitch using silk to tighten the sharri. [...] assisted in the absence of qualified surgical scrub technologist help. He created the pouch and created the jejunojejunostomy. Ena Murray MD TA:[id number] /[id number] [facility] Confirm Blood Typeon 021 ABO/RH(D) Positive Normal [facility] Comment on above: Performed By: #### C ONABO ####[facility] [place], [place] [phone] HISTORY PHYSICALon HISTORY PHYSICAL HNO ID: [id number] Author: Amanda Shane ([place]) Service: ? Author Type: Physician Monitor Car Operator Type: HANDP Filed: 10/17/2020 2:58 PM Note Text: HISTORY AND PHYSICAL EXAMINATION SERVICE DATE: 10/17/2020 SERVICE TIME: 2:42 PM PRIMARY CARE PHYSICIAN: Vernon Castano III, DO REASON FOR VISIT: Nica Escamilla is a 35 year old female who is scheduled for Laparoscopic Gastric Restrictive Surg W/ Bypass AND Trevor-En-Y of Dr. Ena Murray for consultation. My final recommendation will be [...] every 6 hours as needed. Taking Yes BUTALBITAL-ACETAMINOP HEN ORAL Take by mouth. Taking Yes omeprazole (PRILOSEC) 20 mg capsule Take 20 mg by mouth once daily. No medication comments found. ALLERGIES Allergen Reactions - Imitrex [Sumatripta* Other: See Comments nausea - Latex Other: See Comments Blisters REVIEW OF SYSTEMS: PAIN ASSESSMENT: General: No weight loss, malaise or fevers. Neuro: No history of TIA's, stroke, ORDER WORKER tumor, impaired sensorium, hemiplegia, paraplegia or quadraplegia. No neurological symptoms or problems. Respiratory: asthma, uses rescue about once every few weeks; no current resp sx. Had acute bronchitis last Fall, flared asthma for a while but is better now. Has environmental allergies Cardiovascular: No history of HTN requiring medication, no history of angina, CHF, VA, cardiac surgery or stents. Denies rest pain, gangrene or revascularization/amp utation for PVD. No history of cardiovascular symptoms or problems. GI: Positive for GERD, no other GI sx. 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 Patient given verbal and written preop instructions and voices comprehension and compliance. SIGNATURE: Amanda Shane PA-C PATIENT NAME: Nica Escamilla DATE: October 17, 2020 TIME: 2:42 PM PAGER/CONTACT #: Normal [facility] Type and SCR (30D)on 021 ABO/RH(D) Positive Normal [facility] Comment on above: Performed By: #### T SCR30 ####[facility] [place], [place] [phone] HOSPon 09-27-2020 HOSP Patient:Nica Escamilla MRN: Height:5' 0 (1.524 m) Weight:214 lb [...] mg tablet tiZANidine (ZANAFLEX) 4 mg tablet BUTALBITAL-ACETAMINOP HEN ORAL omeprazole (PRILOSEC) 20 mg capsule Admission/Clinic [...] 44.1 % 10/17/2020 46.0 36.0 Progress Notes ([facility]): Marcella Saldana RN 10/13/2020 2:32 PM [...] the recovery room and again on the aranda. They will most likely ask you to [...] Strength Tylenol. Marcella Saldana RN Progress Notes ([address]): Ena Murray MD 10/13/2020 5:31 PM Signed SURGERY PREOPERATIVE VISIT NOTE Name: Nica Escamilla Medical Record: [id number] Encounter No.: [id number] Nica Escamilla is a 35 year old female seen [...] Take 20 mg by mouth once daily. BUTALBITAL-ACETAMINOP HEN ORAL Take by mouth. topiramate (TOPAMAX) 100 [...] regarding unsatisfactory weight loss as well as mcc weight regain. I have also discussed medical [...] on recommendations of the Governor of the [facility]. Although we will perform appropriate precautions [...] explained and provided to the patient. Ena Murray MD Previous Version Normal [facility] HEPATITIS B SURFACE AB IMMUN ITYAleenaNon 08-11-2020 HEPATITIS B SURFACE AB IMMUNITY, QN >1000 Normal > OR = 10 [facility] Comment on above: Result Comment: Patient has immunity to hepatitis B virus. For additional information, please refer to http://education.[employer]/faq/HOW734 (This link is being provided for informational/ educational purposes only). Performed By: #### 8 475 #### [facility] [address] [facility], [address] [place] [address] Branch Office Administrator: Sixto Chandler MD Vital Signs Date Time Vital Sign Value Performing Clinician Facility 10-16-2022 12:53-0500 Diastolic blood pressure 80 mm[Hg] Otis Marcin [facility] 10-16-2022 12:53-0500 Heart rate 55 /min Otis Marcin [facility] 10-16-2022 12:53-0500 Mean blood pressure 89 mm[Hg] Otis Marcin [facility] 10-16-2022 12:53-0500 Respiratory rate 18 /min Otis Marcin [facility] 10-16-2022 12:53-0500 Systolic blood pressure 108 mm[Hg] Otis Marcin [facility] 08-28-2022 08:52-0500 Heart rate 70 /min Otis Marcin [facility] 08-28-2022 08:52-0500 SaO2% (BldA) [Mass fraction] 100 % Otis Marcin [facility] 08-28-2022 08:52-0500 Respiratory rate 16 /min Otis Marcin [facility] 08-28-2022 08:52-0500 Diastolic blood pressure 80 mm[Hg] Otis Marcin [facility] 08-28-2022 08:52-0500 Mean blood pressure 93 mm[Hg] Otis Marcin [facility] 08-28-2022 08:52-0500 Systolic blood pressure 121 mm[Hg] Otis Marcin [facility] 08-28-2022 08:46-0500 Heart rate 70 /min Otis Marcin [facility] 08-28-2022 08:46-0500 SaO2% (BldA) [Mass fraction] 100 % Otis Marcin [facility] 08-28-2022 08:46-0500 Body temperature 97.52 [degF] Otis Marcin [facility] 08-28-2022 08:46-0500 Diastolic blood pressure 69 mm[Hg] Otis Marcin [facility] 08-28-2022 08:46-0500 Mean blood pressure 80 mm[Hg] Otis Marcin [facility] 08-28-2022 08:46-0500 Systolic blood pressure 104 mm[Hg] Otis Marcin [facility] 08-28-2022 08:46-0500 Respiratory rate 16 /min Otis Marcin [facility] 08-28-2022 08:41-0500 Diastolic blood pressure 64 mm[Hg] Otis Marcin [facility] 08-28-2022 08:41-0500 Systolic blood pressure 102 mm[Hg] Otis Marcin [facility] 08-28-2022 08:40-0500 Heart rate 71 /min Otis Marcin [facility] 08-28-2022 08:40-0500 Respiratory rate 12 /min Otis Burch [facility] 08-28-2022 08:40-0500 SaO2% (BldA) [Mass fraction] 100 % Otis Marcin [facility] 08-28-2022 08:35-0500 Respiratory rate 12 /min Otis Marcin [facility] 08-28-2022 08:30-0500 Respiratory rate 12 /min Otis Marcin [facility] 08-28-2022 07:17-0500 Mean blood pressure 78 mm[Hg] Otis Marcin [facility] 08-28-2022 07:17-0500 Respiratory rate 16 /min Otis Burhc [facility] 08-28-2022 07:17-0500 Body temperature 98.24 [degF] Otis Burch [facility] 04-12-2022 14:47-0400 Body height 152.4 cm Lazara Vogel MD Work Phone: [facility] 04-12-2022 14:47-0400 Body temperature 98.91 [degF] Lazara Vogel MD Work Phone: [facility] 04-12-2022 14:47-0400 Body weight 55.52 kg Lazara Vogel MD Work Phone: [facility] 04-12-2022 14:47-0400 Diastolic blood pressure 92 mm[Hg] Lazara Vogel MD Work Phone: [facility] 04-12-2022 14:47-0400 Heart rate 65 /min Lazara Vogel MD Work Phone: [facility] 04-12-2022 14:47-0400 Systolic blood pressure 140 mm[Hg] Lazara Vogel MD Work Phone: [facility] 03-01-2022 14:59-0400 Diastolic blood pressure 86 mm[Hg] Mixon SALAM [facility] 03-01-2022 14:59-0400 Heart rate 52 /min Mixon SALAM [facility] 03-01-2022 14:59-0400 Systolic blood pressure 130 mm[Hg] Mixon SALAM [facility] Encounters Encounter Date Encounter Type Care Provider Facility Start: 11-11-2023 ambulatory Vernon Stewardi ty:[facility] Start: 10-21-2023 ambulatory Vernon Castano Facility :[facility] Start: 09-30-2023 End: 10-01-2023 ambulatory Vitous Vytautas Gieditis Facility: [place] Start: 04-29-2023 End: 04-30-2023 ambulatory Andjeromeus Deniseytautas Alissonitis Facility: [place] Start: 04-15-2023 End: 04-16-2023 ambulatory Andjeromeus Deniseytautas Mistyeditis [facility] Start: 04-01-2023 End: 04-02-2023 ambulatory Aaliyah Walkerytautas Alissonitis Facility: [place] Start: 03-25-2023 End: 03-26-2023 ambulatory Andrius Vytautas Alissonitis Facility: [place] Start: 10-16-2022 End: 10-16-2022 Pain Management Otis Burch [facility] Start: 08-28-2022 End: 08-28-2022 Pain Management Otis Burch [facility] Start: 05-04-2022 End: 05-05-[address] DOCTOR BEAR Facility:[facility] Start: 04-20-2022 End: 04-20-2022 ambulatory ANGELA FUNG Facility:[facility] Start: 04-12-2022 End: 04-12-2022 Patient encounter procedure Lazara Vogel MD Work Phone: Plastic Surgery Comment on above: Hx of bariatric surg renee (Primary Dx); Excess skin Start: 04-12-2022 Chart abstracting Lazara Vogel MD Work Phone: Plastic Surgery Comment on above: PHOTOS TAKEN Start: 04-09-2022 End: 04-09-[address] SHALOM WAGNER Facility:[facility] Start: 04-06-2022 End: 04-06-2022 ambulatory ANGELA KENTON Facility:[facility] Start: 03-23-2022 End: 03-24-2022 ambulatory ANGELA FUNG Facility:[facility] Start: 03-01-2022 End: 03-01-2022 Patient encounter procedure Oral DIETZ [facility] Start: 11-10-2021 End: 11-11-2021 ambulatory PETEY HORTENCIA Facility:[facility] Start: 05-24-2021 End: 06-28-[address] DOCTOR BEAR Facility:[facility] Procedures Date Procedure Procedure Detail Performing Clinician Start: 08-28-2022 Radiofrequency ablation of medial branch of lumbar nerve using fluoroscopic guidance Otis Burch Comment on above: L4/5 +L5/S1 40-50% relief Start: 10-17-2020 Antibody screen Comment on above: Performed By: #### [email or web address] ####[id number] [place], [place] [phone] Start: 05-09-2020 Adult depression screening assessment Lazara Vogel MD Work Phone: Start: 04-18-2020 Colonoscopy Oral DIETZ Start: 04-18-2020 Esophagogastroduodenoscopy Oral DIETZ section Oral DIETZ [facility] Plan of Treatment Date Care Activity Detail Author Start: 05-17-2022 Influenza vaccination INFLUENZA (#1) [facility] Start: 05-09-2021 Adult depression screening assessment DEPRESSION SCREENING [facility] Start: 04-10-2021 COVID-19 VACCINE (3 - Booster for Moderna series) COVID-19 VACCINE (3 - Booster for Moderna series) [facility] Start: 2013 HPV TESTING HPV TESTING [facility] Start: 02-22-2004 PAP TESTING PAP TESTING [facility] Start: 2002 Urine microalbumin profile DTAP,TDAP,TD (1 - Tdap) [facility] Start: 2001 ANNUAL PCP TEAM TEACHER 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 VISIT ANNUAL PCP TEAM CHRONIC DISEASE VISIT [facility] Start: 2001 BP CONTROLLED (<130/80) BP CONTROLLE D (<130/80) [facility] Start: 2001 HEPATITIS C SCREENING HEPATITIS C SC REENING [facility] Start: 2001 HIV SCREENING HIV SCREENING [facility] Start: 2001 SPIROMETRY SPIROMETRY [facility] Start: 1989 PNEUMOCOCCAL (1 - PCV) PNEUMOCOCCAL (1 - PCV) [facility] Immunizations Immunization Date Immunization Notes Care Provider Fa chavezty 09-28-2020 COVID-19 vaccine, fu ll dose (MODERNA) Lazara Vogel MD Work Phone: [facility] 07-01-2020 influenza, injectabl e, quadrivalent, preservative free Lazara Vogel MD Work Phone: [facility] 06-17-2020 influenza virus vacc ine, unspecified formulation Lazara Vogel MD Work Phone: [facility] Payers Date Payer Category Payer Medicaid [id number] 2022 Private Health Insurance 2022 Unknown 2022 Unknown [id number] 2018 Medicaid UHC MEDICAID UHC COMMUNITY [employer]AN MEDICAID [id number] 2018-Present [phone] [address] [place] [address] Medicaid [id number] 1983 Unknown [id number]. 593 1983 Unknown [id number] [id number]. 593 1983 Unknown [id number] 2.16840.1.549534.3.579.2. 593 1983 Unknown [id number] 2.16840.1.354644.3.579.2. 593 1983 Unknown [id number] 2.16840.1.301649.3.579.2. 593 1983 Unknown [id number] 2.840.1.190248.3.579.2. 593 1983 Unknown [id number] 2.16840.1.003183.3.579.2. 593 1983 Unknown [id number] 2.16840.1.712532.3.579.2. 196 1983 Unknown [id number] 2.16840.1.543985.3.579.2. 196 1983 Unknown [id number] 2.840.1.731634.3.579.2. 196 1983 Unknown [id number] 2.16840.1.586351.3.579.2. 196 1983 Unknown [id number] 2.840.1.936748.3.579.2. 196 1983 Unknown [id number] 2.16840.1.101447.3.579.2. 727 1959 Unknown [id number] Social History Date Type Detail Facility Start: 06-27-2017 End: 03-01-2022 Tobacco smoking status Never smoked tobacco (finding) [facility] Tobacco [facility] status [facility] Sex Assigned At Female [facility] Start: 06-27-2017 Tobacco use and exposure Smokeless tobacco non-user [facility] Start: 04-12-2022 Alcohol intake Current drinke r of alcohol (finding) [facility] Start: 04-12-2022 Alcohol intake [facility] Start: 01-05-2020 History SDOH Alcohol Frequency 3 [facility] Start: 01-05-2020 History SDOH Alcohol Std Drinks 1 [facility] Start: 10-17-2020 History SDOH Alcohol Comment once a month, 1 drink [facility] Start: 1985 Sex Assigned At Not on file [facility] Start: 04-01-2022 End: 04-11-2022 Exposure to SARS-CoV-2 (event) Not sure [facility] Functional Status Date Assessment Result Facility 10-16-2022 Functional Status N/A [facility] 08-28-2022 Functional Status N/A [facility] Clinical Notes 05-04-2020 to 10-16-2022 Note [...] concerns. Patient agrees with plan of care. [facility]07-28-2022 NoteHNO ID: [id number] Author: ST Rick Service: ? 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 Author Type: Physician Type: [...] this visit. ALLERGIES A (more content not included)...[facility]07-27-2022 History of Present illness Narrative* Lazara Vogel MD - 04/11/2022 2:37 PM EDT Plastic [...] patient is seen and examined by Dr. Vogel and the following reflects her service. Scribed by Svitlana Gardner RN and Julianne Tyler RN I agree with the Chief Complaint, ROS, and Past Histories independently gathered by the clinical support worker and the remaining scribed note accurately describes [...] see her back in 6 weeks. Lazara Vogel MD [facility] Evaluation + Plan note Diagnostic Tests [...] Level 04/25/21 * Vitamin B12 Level 04/25/21 [facility]02-25-2022 NoteHNO ID: [id number] Author: Ena Murray MD Service: ? Author Type: Physician Type: [...] mcg, Iron 45-60 mg and calcium citrate 5667-9250 mg/day PHYSICAL EXAMINATION: Weight loss: BMI 23.2 [...] Plan: ? Doing great ? EGD Ena Murray [facility]09-30-2021 NoteHNO ID: [id number] Author: Ena Murray MD Service: ? Author Type: Physician Type: [...] mcg, Iron 45-60 mg and calcium citrate 9265-9193 mg/day ? COMPLETE REVIEW OF SYSTEMS Constitutional--Negative [...] which included preparing to see the patient, [id number] patient care and completing clinical documentation.[facility]08-10-2021 Evaluation + Plan note Future Scheduled Tests Laboratory* Copper Level 04/25/21 * Zinc Level 04/25/21 * Vitamin A Level 04/25/21 * Vitamin B1 04/25/21 * Vitamin B6 Lvl 04/25/21 * Vitamin D 25 Hydroxy 04/25/21 * Ferritin 04/25/21 * Folate Level 04/25/21 * Iron Level 04/25/21 * Magnesium Level 04/25/21 * Vitamin B12 Level 04/25/21 [facility] [id number] History of Past illness Narrative* Problem Noted Date Resolved Date Morbid obesity 05/04/2020 01/23/2021 documented as of this encounter (statuses as of 04/12/2022) [facility]08-19-2020 History of Past illness Narrative* Problem Noted Date Resolved Date Morbid obesity 05/04/2020 01/23/2021 documented as of this encounter (statuses as of 04/12/2022) [facility] Future Appointments Appointment Date:09/24/2022 10:30:00 AM Scheduled Provider:Sridevi Goetz PA-C Location:[facility] Appointment Type:[facility] Management - [facility] Diagnosis Hx of bariatric surgery- Primary Bariatric surgery status Excess skin documented in this encounter [facility] Narrative No data available for this section [facility] Hospital Discharge instructions No data available for this section [facility] Progress note No data available for this section [facility] Summary Purpose Family History No Family History Records FoundNo Family History Records FoundNo Family History Records FoundNo Family History Records FoundNo Family History Records FoundNo Family History Records FoundNo Family History Records FoundNo Family History Records Found Advance Directives No Advanced Directives Records FoundDocuments on File Type Date 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 Note HNO ID: [id number] Author: Devonte Zurita Service: Anesthesiology Author Type: Nurse Warehouse Material Handler Type: Anesthesia Procedure Notes Filed: 10/24/2020 2:25 PM Note Text: ANESTHESIOLOGY PROCEDURE NOTE Airway General Information Procedure Start Time/Medication Administration: 10/24/2020 2:14 PM Patient location during procedure: OR Timeout Performed Pre-procedure: timeout performed Patient identity confirmed: arm band, care crew team member and patient Staffing Anesthesiologist: Brandon Stoddard ANIMAL CRUELTY INVESTIGATOR: Pallavi Zurita Performed by: SHAVON Indications and [...] (more content not included)... Note HNO ID: [id number] Author: Devonte Zurita Service: Anesthesiology Author Type: Nurse Warehouse Material Handler Type: Anesthesia Procedure Notes Filed: 10/24/2020 2:26 [...] SIGNATURE: Pallavi Zurita APRN.CRNA PATIENT NAME: Nica Escamilla DATE: October 24, 2020 TIME: 2:26 PM CSN: [id number] Note HNO ID: [id number] Author: Douglas Torrez Service: General Surgery Author Type: Physician Type: Brief Op Note Filed: 10/24/2020 4:36 PM Note Text: BRIEF OPERATIVE NOTE [facility] LOG ID: [id number] SURGERY/PROCEDURE DATE: 10/24/2020 INCISION/PROCEDURE START TIME: 2:28 PM INCISION CLOSE/PROCEDURE END TIME: 4:31 PM SURGEON(S) AND STATIONARY FIREMAN(S): Surgeon(s) and Role: * Ena Murray - Primary * Jarad Clarke (Res) DO Steven - Resident - Assisting * Presley Torrez - Resident - Assisting No Additional Staff PROCEDURES AND ANESTHESIA: Procedure(s) and Anesthesia Type: * LAPAROSCOPIC GASTRIC RESTRICTIVE SURG W/ BYPASS AND TREVOR-EN-Y Procedure Findings Note HNO ID: [id number] Author: Devonte Zurita Service: Anesthesiology Author Type: Nurse Warehouse Material Handler Type: Anesthesia Procedure Notes Filed: 10/24/2020 2:25 PM Note Text: ANESTHESIOLOGY PROCEDURE NOTE Airway General Information Procedure Start Time/Medication Administration: 10/24/2020 2:14 PM Patient location during procedure: OR Timeout Performed Pre-procedure: timeout performed Patient identity confirmed: arm band, care crew team member and patient Staffing Anesthesiologist: Brandon Stoddard ANIMAL CRUELTY INVESTIGATOR: Pallavi Zurita Performed by: SHAVON Indications and [...] (more content not included)... Note HNO ID: [id number] Author: Devonte Zurita Service: Anesthesiology Author Type: Nurse Warehouse Material Handler Type: Anesthesia Procedure Notes Filed: 10/24/2020 2:26 [...] SIGNATURE: Pallavi Zurita APRN.CRNA PATIENT NAME: Nica Escamilla DATE: October 24, 2020 TIME: 2:26 PM CSN: [id number] Note HNO ID: [id number] Author: Douglas Torrez Service: General Surgery Author Type: Physician Type: Brief Op Note Filed: 10/24/2020 4:36 PM Note Text: BRIEF OPERATIVE NOTE [facility] LOG ID: [id number] SURGERY/PROCEDURE DATE: 10/24/2020 INCISION/PROCEDURE START TIME: 2:28 PM INCISION CLOSE/PROCEDURE END TIME: 4:31 PM SURGEON(S) AND STATIONARY FIREMAN(S): Surgeon(s) and Role: * Ena Murray - Primary * Jarad Clarke (Res) DO Steven - Resident - Assisting * Presley Torrez - Resident - Assisting No Additional Staff PROCEDURES AND ANESTHESIA: Procedure(s) and Anesthesia Type: * LAPAROSCOPIC GASTRIC RESTRICTIVE SURG W/ BYPASS AND TREVOR-EN-Y Additional Source Comments INFORMATION SOURCE (unrecogn ized section and content) DATE CREATED AUTHOR [facility] DATE CREATED AUTHOR AUTHOR'S ORGANIZ ATION 10/18/2020 [facility] DATE CREATED AUTHOR AUTHOR'S ORGANIZ ATION 12/17/2020 [facility] DATE CREATED AUTHOR AUTHOR'S ORGANIZ ATION 06/21/2021 [facility] DATE CREATED AUTHOR AUTHOR'S ORGANIZ ATION 04/16/2022 [facility] DATE CREATED AUTHOR AUTHOR'S ORGANIZ ATION 05/10/2022 [facility] DATE CREATED AUTHOR AUTHOR'S ORGANIZ ATION 10/09/2023 [facility] DATE CREATED AUTHOR AUTHOR'S ORGANIZ ATION 10/22/2023 Daniel Almonte [facility] Care Team (unrecognized sect ion and content) Archery Equipment Repairer Relationship Specialty Start Date End Date CastanoVernon III, DO [address] [place] [address] PCP - General Family Practice 10/04/20 Archery Equipment Repairer Relationship Specialty Start Date End Date CastanoVernon III, DO [address] [place] [address] PCP - General Family Practice 10/04/20 Source Comments (unrecognize d section and content) In the event this informatio n is protected by the Federal Confidentiality of Alcohol and Drug Abuse Patient Records regulations: The Federal rules restrict any use of the information to criminally investigate or prosecute any alcohol or drug abuse patient.[facility] the event this information is protected by the Federal Confidentiality of Alcohol and Drug Abuse Patient Records regulations: The Federal rules restrict any use of the information to criminally investigate or prosecute any alcohol or drug abuse patient.[facility] Reason for Visit (unrecogniz ed section [...] BE BASED ON THE PRIMARY CLINICAL RECORDS. [facility]. provides no warranty or guarantee of the accuracy or completeness of information in this document.
--- NOTE | 2023-11-04 14:04 | P.CN_ITS ---
Consult Note: HPI Data of Consult Patient: known to practice within the last 3 years Consult date: 11/04/23 Requesting Physician: Aaliyah Hampton MD Primary Care Provider: PETEY BURNETT Consult Narrative Reason for consult: low back and bilateral leg pain, right neck and arm pain Narrative: 38yof who presents for assessment. notes significant improvement after recent lumbar rfa, but now has different symptoms. notes pain that radiates down right arm, as well as pain that radiates down legs r>l. she has continued in provider directed home exercise program for >6 weeks, without improvement. uses lyrica and baclofen, with some benefit. denies adverse med side effects. cc:: CC: Aaliyah Hampton MD Review of Systems ROS Status of ROS 10 or more systems reviewed and unremark able except as noted in history and below PFSH PFS Medical History Hiatal hernia ?K44.9 - Diaphragmatic hernia without obstruction or gangrene (ICD-10) Fibromyalgia ?M79.7 - Fibromyalgia (ICD-10) Osteoarthritis ?M19.90 - Unspecified osteoarthritis, unspecified site (ICD-10) Low back pain ?M54.50 - Low back pain, unspecified (ICD-10) Anxiety ?F41.9 - Anxiety disorder, unspecified (ICD-10) Acid reflux ?K21.9 - Gastro-esophageal reflux disease without esophagitis (ICD-10) Hypercholesterolemia ?E78.00 - Pure hypercholesterolemia, unspecified (ICD-10) Hypertension ?I10 - Essential (primary) hypertension (ICD-10) Surgical History H/O gastric bypass ?Z98.84 - Bariatric surgery status (ICD-10) S/P foot surgery, right ?Z98.890 - Other specified postprocedural states (ICD-10) S/P cholecystectomy ?Z90.49 - Acquired absence of other specified parts of digestive tract (ICD- 10) S/P ?Z98.891 - History of uterine scar from previous surgery (ICD-10) Social History Smoking status: Never smoker Meds Home Medications and Allergies Home Medications Medication Instructions Recorded Confirmed Type alprazolam 0.25 mg tablet (Xanax) 0.25 mg PO DAILY PRN anxiety 03/27/23 09/30/23 History baclofen 10 mg tablet 10 mg PO .hs PRN muscle spasm 03/27/23 09/30/23 History duloxetine 30 mg capsule,delayed 90 mg PO QDAY 03/27/23 09/30/23 History release pregabalin 50 mg capsule 50 mg PO TID 03/27/23 09/30/23 History propranolol 120 mg capsule,24 120 mg PO Q24H 03/27/23 09/30/23 History hr,extended release cariprazine 1.5 mg capsule 1.5 mg PO DAILY 08/09/23 09/30/23 History (Vraylar) ondansetron 4 mg disintegrating 4 mg PO DAILY PRN nausea and 08/09/23 09/30/23 History tablet vomiting rimegepant 75 mg disintegrating 75 mg PO DAILY PRN migraine 08/09/23 09/30/23 History tablet (Nurtec ODT) headache trazodone 50 mg tablet 50 mg PO DAILY 08/09/23 09/30/23 History diazepam 10 mg tablet (Valium) 10 mg PO BID PRN sedation 09/30/23 09/30/23 History pregabalin 75 mg capsule (Lyrica) 75 mg PO TID #90 caps 11/04/23 Rx Allergies Allergy/AdvReac Type Severity Reaction Status Date / Time latex Allergy Severe Rash Verified 09/30/23 09:40 amitriptyline AdvReac Mild Nausea Unverified 09/30/23 09:40 NSAIDS (Non-Steroidal AdvReac Verified 09/30/23 09:40 Anti-Inflamma Exam Narrative Exam Narrative: Psych-alert and oriented x 3. Attentive and appropriate, constitutionally normal, displays normal mood and affect per situation. There are no obvious deficits in memory, reasoning, or intellect.? Skin-no obvious rashes, bruising, erythema noted to the patient's area of pain.? Extremities- extremities are warm with minimal edema and palpable pulses. Cervical- tenderness to palpation noted in the cervical spine and paraspinal musculature.? Pain is elicited with flexion, extension, and lateral rotation of the cervical spine.? Range of motion is diminished due to pain. Facet loading maneuvers are negative.? Strength-unremarkable and within normal limits with the exception to the right biceps, triceps. Sensory-no notable sensory deficits in the bilateral upper extremities to touch or pinprick with the exception to decreased sensation to the right C5, 6, 7 dermatomal distribution. Lumbar-tenderness to palpation noted in the lumbar spine and paraspinal musculature. Pain is not elicited with flexion, extension, and lateral rotation of the lumbar spine. Range of motion is not diminished with these motions. Facet loading maneuvers are negative.? Strength-noted to be unremarkable with the exception of decreased strength rated at 4 out of 5 in right quadriceps femoris, anterior tibialis. Sensory-no notable sensory deficits in the bilateral lower extremities to touch or pinprick in all dermatomal distributions with the exception to decreased sensation to the right L4, 5 dermatomal distribution Coordination remains intact.? Gait remains non-antalgic. Assessment and Plan Assessment and Plan (1) Lumbar spinal stenosis: Qualifiers: Neurogenic claudication status: with neurogenic claudication Qualified Code(s): M48.062 - Spinal stenosis, lumbar region with neurogenic claudication (2) Lumbar disc displacement without myelopathy: (3) Cervical stenosis of spinal canal: (4) Cervical radiculopathy: Plan 38yof who presents for assessment. worsening radiating pain in right arm and leg, as noted. failed conservative measures, as noted. given symptoms and lack of improvement with >6 weeks of conservative management, will have her update lumbar and cervical MRI without contrast, which have not been done for >2 years. she is in agreement. meds reviewed. will increase lyrica to 75mg tid. follow up after imaging.
== END 2023-11-04 13:07 | disposition home or self-care (01) ==
PROVIDERS: PCP Physician Assistant; Visit Provider Anesthesiology
DX: M48.062 Spinal stenosis, lumbar region with neurogenic claudication (principal); M51.26 Other intervertebral disc displacement, lumbar region; M48.02 Spinal stenosis, cervical region; M54.12 Radiculopathy, cervical region
CPT/HCPCS: G0463

== ENCOUNTER 2023-11-25 08:25 | Outpatient (OUT) | payer OTHER, SELFPAY ==
--- NOTE | 2023-11-25 08:29 | MR_ITS ---
[facility] [place] [id number] Patient Name: NORAH ESCAMILLA MRN: [facility]:[id number] date: 1985 Sex: F Assigned Patient Location: MRI Current Patient Location: MRI Accession/Order Number: [id number] Exam Date: 11/25/2023 08:33 Report Date: 11/25/2023 10:49 At the request of: ANGEL DE LA O Procedure: MR cervical spine wo con MR cervical spine wo con, 11/25/2023 8:33 AM EDT INDICATION: Cervical Stenosis COMPARISON: Prior MRI of cervical spine dated 11/10/2021 TECHNIQUE: Multiplanar, multisequential MRI images of cervical spine were obtained with without contrast. FINDINGS: The sensitivity of the study has been decreased due to motion artifact. There is normal physiologic cervical lordosis. The vertebral heights are relatively preserved. The cervicomedullary junction is unremarkable. No definite signal abnormality within the spinal cord is noted. There are mild disc osteophyte complex associated with uncovertebral joint arthrosis from C3 to T1. Mild right neuroforaminal narrowing and no canal stenosis at the level of C2-C3 is noted. At the level of C3-C4, there is mild left neuroforaminal narrowing and no canal stenosis. At the level of C4-C5, there is no neuroforaminal narrowing and no canal stenosis. At the level of C5-C6, there is moderate right and mild left neuroforaminal narrowing and moderate canal stenosis. At the level of C6-C7, there is mild bilateral neuroforaminal narrowing and moderate canal stenosis. Level of C7-T1 is unremarkable. No definite muscular or ligamentous injury is noted. Incompletely visualized bilateral cystic structures in the supraclavicular regions are stable likely benign structures such as lymphocele. Incidental note of mucosal thickening within the maxillary sinuses right more than left. MR/MR cervical spine wo con IMPRESSION: Mild degenerative changes of the cervical spine in particular at C5-C6 and C6-C7. Electronically authenticated by: MANDY ARCE Date: 11/25/2023 10:49
--- NOTE | 2023-11-25 08:29 | MR_ITS ---
[facility] [id number] Patient Name: NORAH ESCAMILLA MRN: [id number] date: 1985 Sex: F Assigned Patient Location: MRI Current Patient Location: MRI Accession/Order Number: [id number] Exam Date: 11/25/2023 08:33 Report Date: 11/25/2023 10:56 At the request of: ANGEL GIEDRAITIS Procedure: MR lumbar spine wo con MR lumbar spine wo con, 11/25/2023 8:33 AM EDT INDICATION: Lumbar Stenosis COMPARISON: Prior MRI of lumbar spine dated 04/21/2021 TECHNIQUE: Multiplanar, multisequential MRI images of lumbar spine were obtained without contrast. FINDINGS: The sensitivity of the study has been decreased due to motion artifact. For dictation purposes, the lowest complete disc space in the lumbar spine considered as L5-S1. There is normal physiologic lumbar lordosis. The vertebral height is preserved. The conus medullaris is at the level of L1. No signal abnormality within the visualized spinal cord is noted. No neural foraminal narrowing or canal stenoses at the level of L1-L2 and L2-L3 and L3-4 is noted. At the level of L4-5, there are disc bulge with superimposed central annular fissure with mild bilateral neuroforaminal narrowing and mild canal stenosis. At the level of L5-S1, there are disc bulge with superimposed central extrusion with inferior migration with moderate bilateral neuroforaminal narrowing and mild canal stenosis. The paraspinal muscles are unremarkable. MR/MR lumbar spine wo con IMPRESSION: Mild degenerative changes of lumbar spine in particular at L4-L5 and L5-S1. No significant interval change. Electronically authenticated by: MANDY ARCE Date: 11/25/2023 10:56
== END 2023-11-25 08:26 | disposition home or self-care (01) ==
LOC: MRI 08:25
PROVIDERS: PCP Physician Assistant; Visit Provider Anesthesiology
DX: M48.02 Spinal stenosis, cervical region (principal); M48.062 Spinal stenosis, lumbar region with neurogenic claudication; M50.30 Other cervical disc degeneration, unspecified cervical region; M51.36 Other intervertebral disc degeneration, lumbar region
CPT/HCPCS: 72141; 72148

== ENCOUNTER 2023-12-02 12:19 | Outpatient (OUT) | payer OTHER, SELFPAY ==
--- OUTSIDE RECORDS SUMMARY | 2023-12-02 12:30 | XMS_ITS | CCD ---
Author Name Unknown Address [address] [place] [address] Organization [facility] Care Team Providers Care Ibm Bpm Architect Name Role Phone Vernon Castano III Primary [...] Primary Care Unavailable HORTENCIA, PETEY Consulting Unavailable Vernon Castano Referring Unavailable Zack BERMAN Attending Unavailable Gicourtney KOENIG, Andwendy Arellano Attending Unavailable Berta KOENIG, Andrius Arellano Attending Unavailable Berta KOENIG, Andrius Arellano Attending Unavailable Berta KOENIG, Andrius Eileen Attending Unavailable Berta KOENIG, Aaliyah Arellano Attending Unavailable Giedalejandra KOENIG, Aaliyah Arellano Attending Unavailable Allergies Allergy Classification Reported Allergen(s) Allergy Type Date of Onset Reaction(s) Facility (9 sources) Latex; Translations: [latex] Drug allergy 4 Cutaneous eruption (morphologic abnormality), Other: See Comments [facility] (13 sources) SUMAtriptan; Translations: [sumatriptan] Drug Allergy 7 Other: See Comments [facility] (1 source) Amitriptyline Drug Allergy [facility] (1 source) NSAIDs Drug allergy (disorder) [facility] (1 source) Plasmin Drug Allergy [facility] (2 sources) Adhesive bandage; Translations: [Adhesive Bandage] Propensity to adverse reactions (disorder) [facility] Repository Medications Current Medications Medication Drug Class(es) Dates Sig (Normalized) Sig (Original) atomoxetine 60 mg oral capsule (2 sources) Norepinephrine Reuptake Inhibitor Start: 10-28-2023 take 1 capsule by mouth once daily in the morning Strattera 60 mg Cap 60 mg = 1 cap(s), Oral, qAM, Refills(s) 0 Start Date: 10/28/23 Status: Ordered Start: 10-28-2023 take 1 capsule by mo [facility] once daily in the morning Strattera 40 mg Cap 40 mg = 1 cap(s), Oral, qAM, Refills(s) 0 Start Date: 10/28/23 Status: Ordered baclofen 10 mg oral tablet (3 sources) gamma-Aminobutyric Acid-ergic Agonist Start: 10-28-2023 take 1 tablet by mouth three times daily as needed for pain baclofen 10 mg Tab 10 mg = 1 tab(s), Oral, TID, PRN Muscle pain, Refills(s) 0 Start Date: 10/28/23 Status: Ordered baclofen (LIORES AL) 10 mg tablet Take 10 mg by mouth as directed. 0 Active Comment on above: Take 10 mg by mouth as directed. bisacodyl 5 mg delayed release oral tablet (2 sources) Stimulant Laxative Start: 01-26-20 take 1 tablet by mouth once daily Dulcolax 5 mg Tab-EC 5 mg = 1 tab(s), Oral, Daily, # 50 tab(s), Refills(s) 1, Pharmacy: [facility] 1155, 155, cm, 01/25/21 14:00:00 EDT, Height/Length Dosing, 77.7, kg, 01/25/21 14:00:00 EDT, Weight Dosing Start Date: 01/25/21 Status: Ordered cariprazine 1.5 mg oral capsule (1 source) Atypical Antipsychotic Start: 10-28-19 take 1 capsule by mouth once daily Vraylar 1.5 mg oral capsule 1.5 mg = 1 cap(s), Oral, Daily, Refills(s) 0 Start Date: 10/28/23 Status: Ordered dicyclomine hydrochloride 10 mg oral capsule (7 sources) Anticholinergic Start: 03-01-20 take 4 capsules by mouth four times daily as needed for pain Bentyl 10 mg Cap 40 mg, Oral, QID, PRN Pain, # 45 cap(s), Refills(s) 4, Pharmacy: [facility] [address], 155, cm, 03/01/22 15:01:00 EDT, Height/Length Dosing, 54, kg, 03/01/22 15:01:00 EDT, Weight Dosing Start Date: 03/01/22 Status: Ordered dicyclomine HCl (BENTYL ORAL) Take by mouth. 0 Active Comment on above: Take by mouth. duloxetine 30 mg Cap-DR (1 source) Start: 10-28-2023 take 1 capsule by mouth once daily duloxetine 30 mg Cap-DR 30 mg, Oral, Daily, Refills(s) 0 Start Date: 10/28/23 Status: Ordered duloxetine 60 mg Cap-DR (1 source) Start: 10-28-2023 take 1 capsule by mouth once daily duloxetine 60 mg Cap-DR 60 mg, Oral, Daily, Refills(s) 0 Start Date: 10/28/23 Status: Ordered Nurtec ODT (5 sources) Start: 01-25-2021 take 75 mg by mouth once Nurtec ODT 75 mg, Oral, Once, Refills(s) 0 Start Date: 01/25/21 Status: Ordered Start: 01-25-2021 take 1 mg by mouth once Nurtec ODT mg, Oral, Once, Refills(s) 0 Start Date: 01/25/21 Status: Ordered ondansetron 4 mg disintegrating oral tablet (3 sources) Serotonin-3 Receptor Antagonist Start: 10-28-2023 take 1 tablet by mouth three times daily as needed for nausea ondansetron 4 mg Dis Tab 4 mg = 1 tab(s), Oral, TID, PRN Nausea/Vomiting, Refills(s) 0 Start Date: 10/28/23 Status: Ordered Start: 10-13-2020 take 1 tablet by antwan th every eight hours as needed ondansetron orally disintegrating (ZOFRAN ODT) 4 mg disintegrating tablet Take 1 tablet by mouth every 8 hours as needed for Nausea/Vomiting. 30 tablet 1 10/13/2020 Active Comment on above: Take 1 tablet by antwan th every 8 hours as needed for Nausea/Vomiting. pantoprazole 20 mg delayed release oral tablet (7 sources) Proton Pump Inhibitor Start: 0 take 20 mg by mouth once daily Protonix 20 mg, Oral, Daily, Refills(s) 0 Start Date: 09/15/20 Status: Ordered Start: 09-15-2020 Protonix Oral, Daily, Refills(s) 0 Start Date: 09/15/20 Status: Ordered take 1 tablet by antwan th once daily pantoprazole DR (PROTONIX) 40 mg tablet Take [...] Refills(s) 0 Start Date: 03/01/22 Status: Ordered propranolol 120 mg oral tablet (7 sources) beta-Adrenergic Ron Start: 01-25-2021 take 120 mg by mouth once daily propranolol 120 mg, Oral, Daily, Refills(s) 0 Start Date: 01/25/21 Status: Ordered Start: 01-25-2021 propranolol Re fills(s) 0 Start Date: 01/25/21 Status: Ordered Start: 12-28-2020 take 1 capsule by mo uth once daily propranolol ER (INDERAL LA) 120 [...] Take 50 mg by mouth twice daily. traZODone hydrochloride 50 mg oral tablet (1 source) Serotonin Reuptake Inhibitor Start: 4 take 1 tablet by mouth once daily at bedtime traZODONE 50 mg Tab 50 mg = 1 tab(s), Oral, Once a day (at bedtime), Refills(s) 0 Start Date: 10/28/23 Status: Ordered Ventolin HFA 90 mcg/inh Aerosol (5 sources) Start: 9 take 2 puff(s) by inhalation four times daily Ventolin HFA 90 mcg/inh Aerosol 2 puff(s), Inhalation, QID Wheezing, Refill(s) 0 Start Date: 04/27/19 Status: Ordered verapamil hydrochloride 180 mg extended release oral tablet (7 sources) Calcium Channel Ron Start: 4 take 1 tablet by mouth once daily in the morning verapamil 180 mg ER Tab 180 mg = 1 tab(s), Oral, qAM, Refills(s) 0 Start Date: 10/28/23 Status: Ordered Start: 01-25-2021 take 1 mg by mouth once daily [...] Active Comment on above: Take by mouth. biotin 5 mg disintegrating oral tablet (2 [...] on above: Take 1 capsule by mo [facility] three times daily for 14 days. Lactobacillus acidophilus (2 sources) Lactobacillus acidophilus (PROBIOTIC ORAL) Take by mouth. 0 Active Comment on above: Take by mouth. levonorgestrel 0.248222 mg/hr intrauterine system (1 source) Progestin, Progestin-containing Intrauterine Device Start: 10-28-2023 Mirena 52 mg intrauteral device 52 mg = 1 EA, IntraUteral, Once, X 1 dose(s), # 1 EA, Refills(s) 0 Start Date: 10/28/23 Status: Ordered multivit-min/iron/f olic acid/K (BARIATRIC MULTIVITAMINS ORAL) (2 [...] in up to 4 times per day psyllium 525 mg oral capsule (2 sources) Start: 04-06-2020 take 8 capsules by mouth once daily Metamucil 525 mg oral capsule 1,050 mg = 2 cap(s), Oral, Daily, Take 2 hour apart from the other medications with at least 8 ounces of water, # 160 cap(s), Refills(s) 1, Pharmacy: [facility], 155, cm, 04/06/20 13:01:00 EDT, Height/Length [...] Comment on above: [facility] Problems Active Problems Problem Classification Problem Date Documented Da te Episodic/Chronic Abdominal pain (7 sources) Left sided abdominal pain; Translations: [Left lower quadrant pain] Onset: 7 11-07-2020 Episodic Anxiety disorders (1 source) Anxiety 10-28-2023 Chronic Asthma (3 sources) Asthma; Translations: [Unspecified asthma, uncomplicated] 10-17-2020 Chronic Comment on above: Outside Source Comme nt: Overview: uses inhaler a few times a month Deficiency and other anemia (2 sources) Iron deficiency anemia; Translations: [Iron deficiency anemia, unspecified] 10-17-2020 Episodic Diabetes mellitus without complication (1 source) Prediabetes 10-28-2023 Episodic Disorders of lipid metabolism (3 sources) Hyperlipidemia; Translations: [Hyperlipidemia, unspecified] 10-17-2020 Chronic Esophageal disorders (3 sources) Gastroesophageal reflux disease; Translations: [Gastro-esophageal reflux disease without esophagitis] 01-05-2020 Chronic Essential hypertension (3 sources) Hypertensive disorder; Translations: [Essential (primary) hypertension] 01-05-2020 Chronic Headache; including migraine (3 sources) Migraine; Translations: [Migraine, unspecified, not intractable, without status migrainosus] 01-05-2020 Chronic Mood disorders (1 source) Depressive disorder 10-28-2023 Chronic Other aftercare (1 source) Other 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 (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 therapy; Translations: [OTH [facility] CURRENT DRUG THERAPY] Onset: 2 Episodic Other and unspecified benign neoplasm (5 sources) Polyp of colon 05-19-2020 Episodic Other and unspecified benign neoplasm (1 source) Lipoma of back 11-11-2023 Episodic Other gastrointestinal disorders (6 sources) Chronic idiopathic constipation; Translations: [Chronic idiopathic constipation] Onset: 2 Chronic Other gastrointestinal disorders (1 source) Bariatric surgery status; Translations: [Bariatric surgery status] Onset: 2 Episodic Other gastrointestinal disorders (5 sources) Alteration in bowel elimination 01-25-2021 Episodic Other gastrointestinal disorders (5 sources) Constipation 11-07-2020 Episodic Other gastrointestinal disorders (5 sources) Heartburn 05-19-2020 Episodic Other gastrointestinal disorders (1 source) History of bariatric surgical procedure; Translations: [Bariatric surgery status] Episodic Other nervous system disorders (1 source) Other chronic pain; Translations: [OTHER CHRONIC PAIN] Onset: 2 Chronic Other nervous system disorders (1 source) Incoordination; Translations: [Other lack of coordination] Onset: 2 Episodic Other nervous system disorders (5 sources) Muscular incoordination 11-07-2020 Episodic Other nutritional; endocrine; and metabolic disorders (1 source) Overweight 11-11-2023 Episodic Other nutritional; endocrine; and metabolic disorders (1 source) Overweight in adulthood with body mass index of 25 or more but less than 30 11-11-2023 Episodic Other skin disorders (1 source) Skin finding; Translations: [Excessive and redundant skin and subcutaneous tissue] Episodic Residual codes; unclassified (2 sources) Obstructive sleep apnea syndrome; Translations: [Obstructive sleep apnea (adult) (pediatric)] 10-17-2020 Chronic Residual codes; unclassified (1 source) Sleep apnea 10-28-2023 Chronic Residual codes; unclassified (1 source) Acquired [...] stenosis, cervical region] Onset: 2 Episodic Unclassified (5 sources) History of bypass of stomach 11-07-2020 Unclassified (1 source) LOW BACK PAIN, UNSPECIFIED; Translations: [LOW BACK PAIN, UNSPECIFIED] Onset: 2 Unclassified (1 source) Obstructive hydronephrosis Onset: 7 10-28-2023 Past or Other Problems Problem Classification Problem [...] Test Name Value Interpretation Reference Range Facility Consent for Procedure/[facility] 11-12-2023 Consent for Procedure/Surgery [id number] Normal [facility] Consent for Procedure/Surgery [id number] [facility] Ambulatory Visit Summaryon 0 11-11-2023 Ambulatory Visit Summary NICA ESCAMILLA :1985 Visit Date:11/11/2023 Ambulatory Visit Instructions Your Care Team Attending Physician - ANTONELLA KOENIG, Zack Gardiner Primary Care Physician - Vernon Castano III, DO Referring Physician - Vernon Castano III, DO This Is Your Medications List Contact prescribing physician if questions or concerns albuterol (Ventolin HFA 90 mcg/inh Aerosol) atomoxetine (Strattera 40 mg Cap) atomoxetine (Strattera 60 mg Cap) baclofen (baclofen 10 mg Tab) cariprazine (Vraylar 1.5 mg oral capsule) dicyclomine (Bentyl 10 mg Cap) duloxetine (duloxetine 30 mg Cap-DR) duloxetine (duloxetine 60 mg Cap-DR) levonorgestrel (Mirena 52 mg intrauteral device) ondansetron (ondansetron 4 mg Dis Tab) pantoprazole (Protonix) propranolol rimegepant (Nurtec ODT) trazodone (traZODONE 50 mg Tab) verapamil (verapamil 180 mg ER Tab) Procedures Performed Radiofrequency ablation of medial branch of lumbar nerve using fluoroscopic guidance (08/28/2022), Colonoscopy (04/18/2020), Esophagogastroduodenoscopy (04/18/2020), Caesarean section, section, Cholecystectomy, Plantar fasciotomy, Trevor-en-y gastric bypass. Discharge Vitals Heart Rate (Peripheral) 86 Respiratory Rate 16 Blood Pressure 143/91 Height 157.48 cm Height 62 in Weight 70.8 kg Weight 155.76 lb BMI 28.55 Medications What How Much When Instructions Unchanged albuterol (Ventolin HFA 90 mcg/ inh Aerosol) 2 Puffs Inhalation 4 times a day as needed for Wheezing Contact prescribing physician if questions or concerns Unchanged atomoxetine (Strattera 40 mg Cap) 1 Capsules By Mouth Once a day (in the morning) Contact prescribing physician if questions or concerns Unchanged atomoxetine (Strattera 60 mg Cap) 1 Capsules By Mouth Once a day (in the morning) Contact prescribing physician if questions or concerns Unchanged baclofen (baclofen 10 mg Tab) 1 Tablets By Mouth 3 times a day as needed for Muscle pain Contact prescribing physician if questions or concerns Unchanged cariprazine (Vraylar 1.5 mg oral capsule) 1 Capsules By Mouth Every day Contact prescribing physician if questions or concerns Unchanged dicyclomine (Bentyl 10 mg Cap) 40 Milligram By Mouth 4 times a day as needed for Pain Contact prescribing physician if questions or concerns Unchanged duloxetine (duloxetine 30 mg Cap-DR) 30 Milligram By Mouth Every day Contact prescribing physician if questions or concerns Unchanged duloxetine (duloxetine 60 mg Cap-DR) 60 Milligram By Mouth Every day Contact prescribing physician if questions or concerns Unchanged levonorgestrel (Mirena 52 mg intrauteral device) 1 Each Intrauteral Once Duration: 1 Doses Contact prescribing physician if questions or concerns Unchanged ondansetron (ondansetron 4 mg Dis Tab) 1 Tablets By Mouth 3 times a day as needed for Nausea/Vomiting Contact prescribing physician if questions or concerns Unchanged pantoprazole (Protonix) 20 Milligram By Mouth Every day Contact prescribing physician if questions or concerns Unchanged propranolol 120 Milligram By Mouth Every day Contact prescribing physician if questions or concerns Unchanged rimegepant (Nurtec ODT) 75 Milligram By Mouth Once Contact prescribing physician if questions or concerns Unchanged trazodone (traZODONE 50 mg Tab) 1 Tablets By Mouth Once a day (at bedtime) Contact prescribing physician if questions or concerns Unchanged verapamil (verapamil 180 mg ER Tab) 1 Tablets By Mouth Once a day (in the morning) Contact prescribing physician if questions or concerns Medications and Immunizations Administered Not Given influenza virus vaccine, inactivated, Patient Refuses Allergies Adhesive Bandage Imitrex (nausea) Latex (Rash) Problems Ongoing - Any problem that you are currently receiving treatment for. Anxiety Asthma BMI 28.0-28.9,adult Chronic idiopathic constipation Colon polyps Constipation Depression Dyssynergia GERD (gastroesophageal reflux disease) Heartburn Hypertension Left sided abdominal pain Migraines Obstructive hydronephrosis Overweight Prediabetes Pure hypercholesterolemia S/P gastric bypass Sleep apnea Historical - Any problem that you are no longer receiving treatment for. Change in bowel habit Patient Survey You may receive a survey via text or e-mail asking about your office visit. Please share your experience with us by completing your survey. We appreciate your feedback and thank you for choosing us for your care. Normal [facility] Physician Referralon 024 Physician Referral [id number] Normal [facility] PREG HCG QUALon 04-20-2022 , QUAL Negative Normal NEGATIVE [facility] Comment on above: Performed By: #### P REG #### [facility] [address] [place] [address] Dr. Refugio Madrigal 04-12-2022 CARLOS Office Visit (PLASMN ) NICA ESCAMILLA ([id number]) 1985 F Date Time Provider Department 04/12/22 [...] times d (more content not included)... Normal [facility] PREG HCG QUALon 04-06-2022 , QUAL Negative Normal NEGATIVE [facility] Comment on above: Performed By: #### P REG #### [facility] [address] [place] [address] Dr. Refugio Apple CHEMISTRYOrdered By: SYSTEM SYSTEM [...] Folate [Mass/Vol] ng/mL Normal >=6.7ng/mL [facility] Re aidenol Rohan 11-10-2021 CNOV Office Visit (ELMER ) NICA ESCAMILLA ([id number]) 1985 F Date Time Provider Department 11/10/21 [...] mcg, Iron 45-60 mg and calcium citrate 2929-8165 mg/day PHYSICAL EXAMINATION: Weight loss: BMI 23.2 [...] Ena Murray MD Referring Provider: ENA MURRAY [[id number]] Allergies As of Date: 11/10/2021 Noted Allergy [...] JUANITA (a (more content not included)... Normal [facility] MRI [facility] WO CONon 11-10-19 MRI [facility] CON EXAMINATION: MRI [facility] INE WO CON HISTORY: Cervical spondylosis without [...] by: MANOHAR ALONZO Date: 2021-11-10 14:28 [facility] Office Visit (CSZ218 ) NICA ESCAMILLA ([id number]) 1985 F Date Time Provider Department 06/15/21 11:30 AM ENA MURRAY [id number] During your visit today, we recorded the [...] call directly to schedule upper endoscopy at [phone]. Please leave a message if you receive the voicemail with your name, birthday, and reason for calling. Please expect a call or [employer] Lab Productions[employer] message with appointment information and instructions. What [...] is especially important if you have had erxty-ksitvlgim-pjmao surgery in the past. How is an [...] tea, apple juice, nany nghia, 7UP?, silvana, Mathtew-Aid?, Gatorade?, Hi-C? and popsicles. Transportation ? You [...] minutes for (more content not included)... Normal [facility] US breast RT limitedon 05-12 US breast RT limited [facility] [place] [address] Ultrasound Report Signed Patient: Nica Escamilla MR#: [id number] 7 : 1985 Acct:[id number] Age/Sex: 36 / F ADM Date: 05/12/21 Loc: [facility] Room: Type: [facility] Attending Dr: GAMAL Woods Ordering Provider: MARTI Loera Date of Service: 05/12/21 US/US breast RT limited: RT LUMP Copies to: MARTI Loera BACTERIOLOGIST PHARMACEUTICAL-C LIMITED RIGHT BREAST ULTRASOUND CLINICAL DATA: Palpable [...] Kaye Howell M.D.05/12/2021 10:45 AM Dictation Location: [facility] Tech: Ronit House Transcribed By: RANCHO 05/12/21 104 Dictated By: Kaye Howell MD 05/12/21 104 Signed By: 05/12/21 1045 [facility] HISTORY PHYSICALon HISTORY PHYSICAL HNO ID: [id number] Author: Kalpana Otero MD Service: General Surgery [...] December 16, 2020 TIME: 9:33 AM Normal [facility] NURSING PROGon 12-16-2020 NURSING PROG HNO ID: [id number] Author: Yashira Chapa) DEEPTHI Nova Service: Nursing Author Type: Registered [...] None Electronically Signed By: Yashira Nova RN [facility] PT EDon 12-16-2020 PT ED HNO ID: [id number] Author: Manohar (Rn) DEEPTHI Conn Service: Nursing Author Type: Registered Nurse Type: Patient Education Filed: 12/16/2020 11:03 AM Note Text: PATIENT EDUCATION TOPIC: PROCEDURE / SURGERY: Post Procedure Teaching: PATIENT NAME: Nica Escamilla PATIENT LOCATION: [facility] [...] None Electronically Signed By: Manohar Conn RN [facility] NURSING PROGon 10-25-2020 NURSING PROG HNO ID: [id number] Author: Diego Abad RN Service: ? Author Type: Registered Nurse Type: Nursing Progress Note Filed: 10/25/2020 2:09 AM Note Text: Nursing Progress Note Patient Name: Nica Escamilla Patient Location: [address] Daily Note: 2000: Assessment complete see NPR. Pt present w/ nausea Zofran given. Pain 8/10 PRN pain med given. 0100: Nausea concerned by pt. Paged for second like prevention. 0130: Compazine ordered/given. No cough or SOB at this time. Lap sites intact no bruising. No gas passed yet. This note was completed by: Diego Abad [facility] PLAN OF CAREon 10-25-2020 PLAN OF CARE HNO ID: [id number] Author: Davina Bonilla (BountyHunter) Service: Pharmacy Author Type: ? Type: Plan of Care Filed: 10/25/2020 2:56 PM Note Text: Pharmacy Discharge Medication Service: This patient has elected to receive their discharge prescriptions through the [facility] Bedside Prescription Delivery program. The prescriptions are currently being processed. A follow-up note will be entered once the prescriptions have been filled and delivered to the patient. Please contact me with any questions or updates to the patient's discharge medications. Davina Bonilla (BountyHunter) DCT Contact Info: [id number] [facility] PLAN CARE HNO ID: [id number] Author: Davina Bonilla (BountyHunter) Service: Pharmacy Author Type: ? Type: Plan of Care Filed: 10/25/2020 2:56 PM Note Text: [facility] BEDSIDE DELIVERY SURVEY 1. Patient to use [facility] Bedside Delivery - YES Insurance Information as follows: 2. Insurance card on file - YES 3. Credit card for payment - N/A [facility] PLAN OF CARE HNO ID: [id number] Author: Davina Bonilla (BountyHunter) Service: Pharmacy Author Type: ? Type: Plan [...] or your Primary Care Provider. Davina Bonilla (Kindergarten Classroom Teacher) PAGER: [phone] October 25, 2020 2:56 PM [facility] PROGRESSon 10-25-2020 PROGRESS HNO ID: [id number] Author: Presley Torrez Service: General Surgery Author [...] October 25, 2020 TIME: 7:02 AM Normal [facility] PROGRESS HNO ID: [id number] Author: Juliet Lilly Service: General Surgery Author [...] care Juliet Lilly MD General Surgery PGY1 [facility] PT EDon 10-25-2020 PT ED HNO ID: [id number] Author: Geoff Sheets) Krunal Service: Nutrition Therapy Author Type: Brands Editor Type: Patient Education Filed: 10/25/2020 12:04 PM [...] Routine Care/15 min 2 units SIGNATURE: GEOFF SIMON DTR PATIENT NAME: Nica Escamilla DATE: October 25, 2020 TIME: 12:04 PM PAGER: [phone] [facility] ANES POSTPROC EVALon 021 ANES POSTPROC EVAL HNO ID: [id number] Author: Brandon Stoddard Service: Anesthesiology Author Type: Anesthesiologist Type: Anesthesia Postprocedure Evaluation Filed: 10/24/2020 4:58 PM Note Text: POST ANESTHESIA EVALUATION NOTE : 1985 Procedure Summary Date: 10/24/20 Room / Location: OR05 / [facility] OR Anesthesia Start: 1402 Anesthesia Stop: 164 Procedure: LAPAROSCOPIC GASTRIC RESTRICTIVE SURG W/ BYPASS [...] October 24, 2020 TIME: 4:58 PM CSN: [id number] [facility] ANES PRE-OPon 10-24-2020 ANES PRE-OP HNO ID: [id number] Author: Colin Archer Service: Anesthesiology Author Type: [...] October 24, 2020 TIME: 1:18 PM CSN: [id number] [facility] NURSING PROGon 10-24-2020 NURSING PROG HNO ID: [id number] Author: Sridevi LauRn) DEEPTHI Triana Service: Nursing Author Type: Registered Nurse Type: Nursing Progress Note Filed: 10/24/2020 6:56 PM Note Text: Nursing Progress Note Patient Name: Nica Escamilla Patient Location: [address] Transfer Note: Patient transferred into room/unit PK325 in stable condition. Actions taken: No futher actions taken at this time. at bedside. Will continue to monitor and check with patient. This note was completed by: Sridevi Triana RN [facility] NURSING PROG HNO ID: [id number] Author: Gege (Rn) DEEPTHI Kenney Service: Nursing Author Type: Registered [...] None Electronically Signed By: Gege Kenney RN [facility] OPERATIVE NOon 10-24-2020 OPERATIVE NO HNO ID: [id number] Author: Ena Murray Service: General Surgery Author Type: Physician Type: Operative Report Filed: 10/26/2020 11:07 AM Note Text: [facility] - Operative Report NICA ESCAMILLA : 1985 AGE: 35. SEX: F PATIENT TYPE: I HOSP SVC: GENS [facility] [place] ATTENDING PHYSICIAN: Ena Murray MD CSN NUMBER: [id number] DATE OF SURGERY/PROCEDURE: 10/24/2020 INCISION/PROCEDURE START TIME: 2:28 PM INCISION CLOSE/PROCEDURE END TIME: 4:31 PM PREOPERATIVE DIAGNOSIS: Morbid obesity, BMI of 42. POSTOPERATIVE DIAGNOSIS: 1. Morbid obesity. 2. Hiatal hernia. SURGEON: Ena Murray MD SVP CHIEF MARKETING OFFICER: Presley Torrez MD. SURGERY/PROCEDURE: 1. Laparoscopic repair [...] performed in the retroesophageal window and a Cortez drain was passed. It was used to retract the esophagus. The posterior cruroplasty was completed using 1 [id number] stitch using silk to tighten the sharri. [...] Torrez assisted in the absence of qualified assembler surgical garment help. He created the pouch and created the jejunojejunostomy. Ena Murray MD TA:[id number] /[id number] Normal [facility] Confirm Blood Typeon 021 ABO/RH(D) Positive Normal [facility] Comment on above: Performed By: #### C ONABO ####[facility] [place], [place] [phone] HISTORY PHYSICALon HISTORY PHYSICAL HNO ID: [id number] Author: Amanda Shane (Pa) Service: ? Author Type: Physician Agricultural Real Estate Agent Type: HANDP Filed: 10/17/2020 2:58 PM Note [...] fevers. Neuro: No history of TIA's, stroke, WEBSPHERE ARCHITECT tumor, impaired sensorium, hemiplegia, paraplegia or quadraplegia. No neurological symptoms or problems. Respiratory: asthma, uses rescue about once every few weeks; no current resp sx. Had acute bronchitis last Fall, flared asthma for a while but is better now. Has environmental allergies Cardiovascular: No history of HTN requiring medication, no history of angina, CHF, IA, cardiac surgery or stents. Denies rest pain, gangrene or revascularization/amputation for PVD. No history of cardiovascular symptoms or problems. GI: Positive for GERD, no other GI sx. : No history of dysuria, frequency or incontinence,, stones or chronic kidney disease SPRIGGER: Negative for abnormal vaginal bleeding, abnormal vaginal [...] 2020 TIME: 2:42 PM PAGER/CONTACT #: Normal [facility] Type and SCR (30D)on 021 ABO/RH(D) Positive Normal [facility] Comment on above: Performed By: #### T SCR30 ####[facility] [place], [place] [phone] HOSPon 09-27-2020 HOSP Patient:Nica Escamilla MRN: Height:5' [...] 44.1 % 10/17/2020 46.0 36.0 Progress Notes ([facility]): Marcella Saldana RN 10/13/2020 2:32 PM Signed [...] Strength Tylenol. Marcella Saldana RN Progress Notes ([address]): Ena Murray MD 10/13/2020 5:31 PM Signed SURGERY PREOPERATIVE VISIT NOTE Name: Nica Escamilla Medical Record: [id number] Encounter No.: [id number] Nica Escamilla is a 35 year old [...] regarding unsatisfactory weight loss as well as correction weight regain. I have also discussed medical [...] on recommendations of the Governor of the [facility]. Although we will perform appropriate precautions to [...] patient. Ena Murray MD Previous Version Normal [facility] HEPATITIS B SURFACE AB IMMUN ITY, QNon 08-11-2020 HEPATITIS B SURFACE AB IMMUNITY, QN >1000 Normal > OR = 10 [facility] Comment on above: Result Comment: Patient has immunity to hepatitis B virus. For additional information, please refer to http://education.3G Multimedia.MideoMe/faq/MUV475 (This link is being provided for informational/ educational purposes only). Performed By: #### [id number] #### [employer]-[address], [address] [place] [id number] Tax Attorney: Sixto Chandler MD Vital Signs Date Time Vital Sign Value Performing Clinician Facility 10-16-2022 12:53-0500 Diastolic blood pressure 80 mm[Hg] Otis Marcin [facility] 10-16-2022 12:53-0500 Heart rate 55 /min Otis Burch [facility] 10-16-2022 12:53-0500 Mean blood pressure 89 mm[Hg] Otis Marcin [facility] 10-16-2022 12:53-0500 Respiratory rate 18 /min Otis Burch [facility] 10-16-2022 12:53-0500 Systolic blood pressure 108 mm[Hg] Otis Marcin [facility] 08-28-2022 08:52-0500 Heart rate 70 /min Otis Burch [facility] 08-28-2022 08:52-0500 SaO2% (BldA) [Mass fraction] 100 % Otis Burch [facility] 08-28-2022 08:52-0500 Respiratory rate 16 /min Otis Marcin [facility] 08-28-2022 08:52-0500 Diastolic blood pressure 80 mm[Hg] Otis Marcin [facility] 08-28-2022 08:52-0500 Mean blood pressure 93 mm[Hg] Otis Marcin [facility] 08-28-2022 08:52-0500 Systolic blood pressure 121 mm[Hg] Otis Marcin [facility] 08-28-2022 08:46-0500 Heart rate 70 /min Otis Marcin [facility] 08-28-2022 08:46-0500 SaO2% (BldA) [Mass fraction] 100 % Otis Marcin [facility] 08-28-2022 08:46-0500 Body temperature 97.52 [degF] Otis Marcin [facility] 08-28-2022 08:46-0500 Diastolic blood pressure 69 mm[Hg] Otis Marcin [facility] 08-28-2022 08:46-0500 Mean blood pressure 80 mm[Hg] Otis Marcin [facility] 08-28-2022 08:46-0500 Systolic blood pressure 104 mm[Hg] Otis Marcin [facility] 08-28-2022 08:46-0500 Respiratory rate 16 /min Otis Marcin [facility] 08-28-2022 08:41-0500 Diastolic blood pressure 64 mm[Hg] Oits Marcin [facility] 08-28-2022 08:41-0500 Systolic blood pressure 102 mm[Hg] Otis Marcin [facility] 08-28-2022 08:40-0500 Heart rate 71 /min Otis Marcin [facility] 08-28-2022 08:40-0500 Respiratory rate 12 /min Otis Marcin [facility] 08-28-2022 08:40-0500 SaO2% (BldA) [Mass fraction] 100 % Otis Marcin [facility] 08-28-2022 08:35-0500 Respiratory rate 12 /min Otis Marcin [facility] 08-28-2022 08:30-0500 Respiratory rate 12 /min Otis Marcin [facility] 08-28-2022 07:17-0500 Mean blood pressure 78 mm[Hg] Otis Marcin [facility] 08-28-2022 07:17-0500 Respiratory rate 16 /min Otis Marcin [facility] 08-28-2022 07:17-0500 Body temperature 98.24 [degF] Otis Marcin [facility] 04-12-2022 14:47-0400 Body height 152.4 cm Lazara Vogel MD Work Phone: [facility] 04-12-2022 14:47-0400 Body temperature 98.91 [degF] Lazara Vogel MD Work Phone: [facility] 04-12-2022 14:47-0400 Body weight 55.52 kg Lazara Vogel MD Work Phone: [facility] 04-12-2022 14:47-0400 Diastolic blood pressure 92 mm[Hg] Lazara Vogel MD Work Phone: [facility] 04-12-2022 14:47-0400 Heart rate 65 /min Lazara Vogel MD Work Phone: [facility] 04-12-2022 14:47-0400 Systolic blood pressure 140 mm[Hg] Lazara Vogel MD Work Phone: [facility] 03-01-2022 14:59-0400 Diastolic blood pressure 86 mm[Hg] Mixon SALAM [facility] 03-01-2022 14:59-0400 Heart rate 52 /min Mixon SALAM [facility] 03-01-2022 14:59-0400 Systolic blood pressure 130 mm[Hg] Mixon SALAM [facility] Encounters Encounter Date Encounter Type Care Provider Facility Start: 11-11-2023 End: 11-12-2023 ambulatory Vernon Castano Facility:[facility] Start: 11-11-2023 End: 11-26-2023 Pre-admission assessment Zack BERMAN [facility] Start: 11-04-2023 End: 11-05-2023 ambulatory Aaliyah Hampton MD Facility: [facility] Start: 10-21-2023 ambulatory [facility] Start: 09-30-2023 End: 10-01-2023 ambulatory Aaliyah Hampton MD Facility: [facility] Start: 04-29-2023 End: 04-30-2023 ambulatory Aaliyah Hampton MD Facility:[facility] Start: 04-15-2023 End: 04-16-2023 ambulatory Aaliyah Hampton MD Facility: [facility] Start: 04-01-2023 End: 04-02-2023 ambulatory Aaliyah Hampton MD Facility:[facility] Start: 03-25-2023 End: 03-26-2023 ambulatory Aaliyah Hampton MD Facility:[facility] Start: 10-16-2022 End: 10-16-2022 Pain Management Otis Burch [facility] Start: 08-28-2022 End: 08-28-2022 Pain Management Otis Burch [facility] Start: 05-04-2022 End: 05-05-[address] DOCTOR [...] Facility:[facility] Start: 03-23-2022 End: 03-24-2022 ambulatory ANGELA KENTON Facility:[facility] Start: 03-01-2022 End: 03-01-2022 Patient encounter procedure Oral DIETZ [facility] Start: 11-10-2021 End: 11-11-2021 ambulatory PETEY HORTENCIA Facility:[facility] Start: 05-24-2021 End: 06-28-[address] DOCTOR BEAR Facility:[facility] Procedures Date Procedure Procedure Detail Performing Clinician Start: 08-28-2022 Radiofrequency ablation of medial branch of lumbar nerve using fluoroscopic guidance Otis Burch Comment on above: L4/5 +L5/S1 40-50% relief Start: 10-17-2020 Antibody screen Comment on above: Performed By: #### [id number] ####[facility] [place], [place] [phone] Start: 05-09-2020 Adult depression screening assessment Lazara Vogel MD Work Phone: Start: 04-18-2020 Colonoscopy Oral DIETZ Start: 04-18-2020 Esophagogastroduodenoscopy Oral DIETZ section Oral DIETZ section Zack Albarado Cholecystectomy Oral DIETZ Fasciotomy of foot Zack HOFFMAN Trevor-en-Y gastrojejunostomy Zack BERMAN Plan of Treatment Date Care Activity Detail Author Start: 05-17-2022 Influenza vaccination INFLUENZA (#1) [facility] Start: 05-09-2021 Adult depression screening assessment DEPRESSION SCREENING [facility] Start: 04-10-2021 COVID-19 VACCINE (3 - Booster for Moderna series) COVID-19 VACCINE (3 - Booster for Moderna series) [facility] Start: 2013 HPV TESTING HPV TESTING [facility] Start: 02-22-2004 PAP TESTING PAP TESTING [facility] Start: 2002 Urine microalbumin profile DTAP,TDAP,TD (1 - Tdap) [facility] Start: 2001 ANNUAL PCP TEAM WEBSPHERE ARCHITECT 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 VISIT ANNUAL PCP TEAM CHRONIC DISEASE VISIT [facility] Start: 2001 BP CONTROLLED (<130/80) BP CONTROLLE D (<130/80) [facility] Start: 2001 HEPATITIS C SCREENING HEPATITIS C SC RAPHAEL [facility] Start: 2001 HIV SCREENING HIV SCREENING [facility] Start: 2001 SPIROMETRY SPIROMETRY [facility] Start: 1989 PNEUMOCOCCAL (1 - PCV) PNEUMOCOCCAL (1 - PCV) [facility] Immunizations Immunization Date Immunization Notes Care Provider Fa cility 11-11-2020 SARS-CoV-2 (COVID-19 ) mRNA-1273 vaccine Zack BERMAN [facility] Comment on above: Result Comment: 2023: TPV20 09-28-2020 COVID-19 vaccine, fu ll dose (MODERNA) Lazara Vogel MD Work Phone: [facility] Comment on above: Result Comment: 2023: TPV20 07-01-2020 influenza, injectabl e, quadrivalent, preservative free Lazara Vogel MD Work Phone: [facility] 06-17-2020 influenza virus vaccine, unspecified formulation Lazara Vogel MD Work Phone: [facility] NEGATED: Highlighted row has not occurred!11-11-2023 influenza virus vaccine, unspecified formulation Zack GARVINPer [facility] Payers Date Payer Category Payer Medicaid [id number] 2022 Private Health Insurance 2022 Unknown 2022 Unknown [id number] 2018 Medicaid UHC MEDICAID UHC COMMUNITY PLAN MEDICAID [id number] 2018-Present [phone] [address] [place] [address] Medicaid [id number] 1985 Unknown [id number] [id number]. 593 1985 Unknown [id number] 2.840.1.549480.3.579.2. 593 1985 Unknown [id number] 2.0.1.989232.3.579.2. 593 1983 Unknown [id number] 2.16.840.1.983702.3.579.2. 593 1985 Unknown [id number] 2.16.840.1.202421.3.579.2. 593 1985 Unknown [id number] 2.16.840.1.667060.3.579.2. 593 1985 Unknown [id number] 2.16.840.1.448901.3.579.2. 593 1983 Unknown [id number] 2.16.840.1.391835.3.579.2. 727 1985 Unknown [id number] 2.16.840.1.260488.3.579.2. 196 1983 Unknown [id number] 2.16.840.1.830620.3.579.2. 196 1983 Unknown [id number] 2.16.840.1.657922.3.579.2. 196 1983 Unknown [id number] 2.16.840.1.087502.3.579.2. 196 1983 Unknown [id number] 2.16.840.1.768310.3.579.2. 196 1983 Unknown [id number] 2.16.840.1.160494.3.579.2. 196 1959 Unknown [id number] Social History Date Type Detail Facility Start: 03-01-2022 End: 11-11-2023 Tobacco smoking status Never smoked tobacco (finding) [facility] Tobacco smoking status Never [facility] Sex Assigned At Female [facility] Start: 06-27-2017 Tobacco use and exposure Smokeless tobacco non-user [facility] Start: 04-12-2022 Alcohol intake Current drinke r of alcohol (finding) [facility] Start: 04-12-2022 Alcohol intake [facility] Start: 01-05-2020 History SDOH Alcohol Frequency 3 [facility] Start: 01-05-2020 History SDOH Alcohol Std Drinks 1 [facility] Start: 10-17-2020 History SDOH Alcohol Comment once a month, 1 drink [facility] Start: 1985 Sex Assigned At Not on file C [facility] Start: 04-01-2022 End: 04-11-2022 Exposure to SARS-CoV-2 (event) Not sure [facility] Functional Status Date Assessment Result Facility 10-16-2022 Functional Status N/A [facility] 08-28-2022 Functional Status N/A [facility] Clinical Notes 05-04-2020 to 11-11-2023 Note Date & Type Note Facility 11-11-2023 Note Chief Complaint consultation for skin mass HPI Staff 38 year old female presents on consultation from Dr. Castano for left back mass. Reports noting mass approximately 1 month ago. Denies change in size since first noted. Denies area being red. Occasional soreness when rubbed from bra strap. Denies drainage. No imaging completed. History of Present Illness 38 yo female with h/o htn, hypercholesterolemia, asthma, anxiety/dperession, GERD, migraines, referred for subcutaneous mass left back, noticed this 1 month ago, no pain or drainage, no change in size, no h/o other similar masses; no imaging, no asa or NSAID use, no tobacco use. Review of Systems PHQ Score Initial Depression Screen Score: 0 SCORE ROS - Provider Constitutional: no fever, no sweats, no weight loss. Eyes: no glasses, no blurred vision, no visual loss. ENMT: no dentures, no hoarseness, no swallowing difficulties, no hearing loss, no ear infection(s), no nose bleeds. Cardiovascular: normal blood pressure, no chest pain, regular heartbeat, no heart murmur. Respiratory: no shortness of breath, no cough, no asthma, no wheezing. Gastrointestinal: no nausea, no vomiting, no diarrhea, no constipation, no blood in stool, no change in bowel habits, no abdominal pain, no hepatitis. Genitourinary: no kidney stones, no urine infection, no dysuria. Musculoskeletal: no pain, no weakness. Skin: no changing moles, no rash, no skin lumps. Neurologic: no seizures, no epilepsy, no headache. Psychiatric: no emotional or psychiatric problem. Heme/Lymph: no bleeding problems, no anemia, no blood clots, no transfusions. Allergy/Immunologic: no swollen lymph nodes/glands, no IV drug abuse. Other: Additional ROS info: Except as noted in the above Review of Systems and in the History of Present Illness, all other systems have been reviewed and are negative or noncontributory. Physical Exam Vitals & Measurements HR: 86(Peripheral) RR: 16 BP: 143/91 HT: 62 in HT: 157.48 cm WT: 70.8 kg WT: 155.76 lb BMI: 28.55 HEENT: normal conjunctiva, sclera clear, no scleral icterus, EOM intact, PERRLA, oral mucosa moist without lesions. Neck: trachea midline, no mass, symmetric, no thyromegaly or nodules, no adenopathy Respiratory: lungs CTA, respirations non labored.. Musculoskeletal: normal gait, digits and nails without infection, nodes, cyanosis, clubbing. Skin: no rashes, no lesions, no ulcers, 2 cm subcutaneous mass left mid back, no overlying skin changes; nontender, soft. Psychiatric/Neuro: oriented to time, place, person, judgement normal, affect appropriate for age, insight intact, no focal deficits. Tests: , review of old records completed , Discussed surgical options, risks, and possible complications with patient. Assessment/Plan 1. Lipoma of back (D17.1: Benign lipomatous neoplasm of skin and subcutaneous tissue of trunk) plan excisional biopsy under local anesthesia for definitive diagnosis and treatment, informed consent obtained. Follow-up No qualifying data available Problem List/Past Medical History Ongoing Anxiety Asthma BMI 28.0-28.9,adult Chronic idiopathic constipation Colon polyps Constipation Depression Dyssynergia GERD (gastroesophageal reflux disease) Heartburn Hypertension Left sided abdominal pain Lipoma of back Migraines Obstructive hydronephrosis Overweight Prediabetes Pure hypercholesterolemia S/P gastric bypass Sleep apnea Historical Change in bowel habit Procedure/Surgical History Radiofrequency ablation of medial branch of lumbar nerve using fluoroscopic guidance (08/28/2022), Colonoscopy (04/18/2020), Esophagogastroduodenoscopy (04/18/2020), Caesarean section, section, Cholecystectomy, Plantar fasciotomy, Trevor-en-y gastric bypass. Medications baclofen 10 mg Tab, 10 mg= 1 tab(s), Oral, TID, PRN Bentyl 10 mg Cap, 40 mg, Oral, QID, PRN, 4 refills, Self Directed duloxetine 30 mg Cap-DR, 30 mg, Oral, Daily duloxetine 60 mg Cap-DR, 60 mg, Oral, Daily Mirena 52 mg intrauteral device, 52 mg= 1 EA, IntraUteral, Once Nurtec ODT, 75 mg, Oral, Once ondansetron 4 mg Dis Tab, 4 mg= 1 tab(s), Oral, TID, PRN propranolol, 120 mg, Oral, Daily Protonix, 20 mg, Oral, Daily Strattera 40 mg Cap, 40 mg= 1 cap(s), Oral, qAM Strattera 60 mg Cap, 60 mg= 1 cap(s), Oral, qAM traZODONE 50 mg Tab, 50 mg= 1 tab(s), Oral, Once a day (at bedtime) Ventolin HFA 90 mcg/inh Aerosol, 2 puff(s), Inhalation, QID, PRN, Self Directed verapamil 180 mg ER Tab, 180 mg= 1 tab(s), Oral, qAM Vraylar 1.5 mg oral capsule, 1.5 mg= 1 cap(s), Oral, Daily Allergies Adhesive Bandage Imitrex (nausea) Latex (Rash) Social History Alcohol Current, Beer, 1-2 times per week, 11/11/2023 Substance Abuse - Denies Substance Abuse, 04/27/2019 Tobacco - Denies Tobacco Use, 04/27/2019 Never (less than 100 in lifetime) Tobacco Use:. Never Smokeless Tobacco Use:., 11/11/2023 Family History Alcoholism: Brother. Colon ca (more content not included)... [facility] Comment on above: Result Comment: Elec tronically Signed By: ANTONELLA KOENIG, Zack Carson\Date and Time Signed: 11/11/23 13:28 EST 10-16-2022 Evaluation + Plan note Extrac andres [...] concerns. Patient agrees with plan of care. [facility]07-28-2022 NoteHNO ID: [id number] Author: ST Rick Service: ? Author Type: Oven Laborer Type: Progress Notes Filed: 04/12/2022 3:50 PM Note Text: DATE OF PHOTOS: 04/12/2022 Body Part: Breasts, Abdomen, Leg(s) and Arms ST Rick April 12, 2022 3:49 [facility]07-28-2022 History of Present illness Narrative* ST Rick - 04/12/2022 3:49 PM EDT DATE OF PHOTOS: 04/12/2022 Body Part: Breasts, Abdomen, Leg(s) and Arms ST Rick April 12, 2022 3:49 PM [facility] NoteHNO ID: [id number] Author: Lazara Vogel MD Service: ? Author [...] this visit. ALLERGIES A (more content not included)...[facility]07-27-2022 History of Present illness Narrative* Lazara Vogel [...] Past Histories independently gathered by the clinical systems support engineer and the remaining scribed note accurately describes [...] weeks. Lazara Vogel MD documented in [facility] encounter[facility] Evaluation + Plan note Diagnostic Tests [...] Level 04/25/21 * Vitamin B12 Level 04/25/21 [facility]02-25-2022 NoteHNO ID: [id number] Author: Ena Murray MD Service: ? Author [...] mcg, Iron 45-60 mg and calcium citrate 2030-8270 mg/day PHYSICAL EXAMINATION: Weight loss: BMI 23.2 [...] ? Doing great ? EGD Ena Murray [facility]09-30-2021 NoteHNO ID: [id number] Author: Ena Murray MD Service: ? Author [...] mcg, Iron 45-60 mg and calcium citrate 4034-6052 mg/day ? COMPLETE REVIEW OF SYSTEMS Constitutional--Negative [...] which included preparing to see the patient, [id number] patient care and completing clinical documentation.[facility]08-10-2021 Evaluation + Plan note Future Scheduled Tests Laboratory* Copper Level 04/25/21 * Zinc Level 04/25/21 * Vitamin A Level 04/25/21 * Vitamin B1 04/25/21 * Vitamin B6 Lvl 04/25/21 * Vitamin D 25 Hydroxy 04/25/21 * Ferritin 04/25/21 * Folate Level 04/25/21 * Iron Level 04/25/21 * Magnesium Level 04/25/21 * Vitamin B12 Level 04/25/21 [facility] 08-19-2020 History of Past illness Narrative* Problem Noted Date Resolved Date Morbid obesity 05/04/2020 01/23/2021 documented as of this encounter (statuses as of 04/12/2022) [facility]08-19-2020 History of Past illness Narrative* Problem Noted Date Resolved Date Morbid obesity 05/04/2020 01/23/2021 documented as of this encounter (statuses as of 04/12/2022) [facility] Future Appointments Appointment Date:09/24/2022 10:30:00 AM Scheduled Provider:Sridevi Goetz PA-C Location:FT.[facility] [place] Appointment Type:Pain Management - Follow Up (FT) [facility] Diagnosis Hx of bariatric surgery- Primary Bariatric surgery status Excess skin documented in this encounter [facility] course Narrative No data available for this section [facility] Hospital Discharge instructions No data available for this section [facility] Progress note No data available for this section [facility] Summary Purpose Family History No Family History Records FoundNo Family History Records FoundNo Family History Records FoundNo Family History Records FoundNo Family History Records FoundNo Family History Records FoundNo Family History Records FoundNo Family History Records Found No data available for this section Advance Directives Documents on File Type Date Recorded 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 Note HNO ID: [id number] Author: Devonte Zurita Service: Anesthesiology Author Type: Nurse Contact Acid Plant Operator Helper Type: Anesthesia Procedure Notes Filed: 10/24/2020 2:26 PM Note Text: ANESTHESIOLOGY PROCEDURE NOTE PIV General Information Procedure Start Time/Medication Administration: 10/24/2020 2:15 PM Patient Location: OR Staffing Anesthesiologist: Brandon Stdodard Performed by: anesthesiologist Preparation Sterility Preparation: hand hygiene performed prior to procedure Site Prep: Chloraprep Procedure Details Indication: need for IV access Needle Size/Type: 18 gauge angiocath Orientation: Right Location: Hand SIGNATURE: Pallavi Zurita APRN.CRNA PATIENT NAME: Nica Escamilla DATE: October 24, 2020 TIME: 2:26 PM CSN: [id number] Note HNO ID: [id number] Author: Douglas Torrez Service: General Surgery Author Type: Physician Type: Brief Op Note Filed: 10/24/2020 4:36 PM Note Text: BRIEF OPERATIVE NOTE [facility] LOG ID: [id number] SURGERY/PROCEDURE DATE: 10/24/2020 INCISION/PROCEDURE START TIME: 2:28 PM INCISION CLOSE/PROCEDURE END TIME: 4:31 PM SURGEON(S) AND SVP CHIEF MARKETING OFFICER(S): Surgeon(s) and Role: * Ena Murray - Primary * Jarad Clarke (Res) DO Steven - Resident - Assisting * Presley Torrez - Resident - Assisting No Additional Staff PROCEDURES AND ANESTHESIA: Procedure(s) and Anesthesia Type: * LAPAROSCOPIC GASTRIC RESTRICTIVE SURG W/ BYPASS AND TREVOR-EN-Y Procedure Findings Note HNO ID: [id number] Author: Devonet Zurita Service: Anesthesiology Author Type: Nurse Contact Acid Plant Operator Helper Type: Anesthesia Procedure Notes Filed: 10/24/2020 2:25 PM Note Text: ANESTHESIOLOGY PROCEDURE NOTE Airway General Information Procedure Start Time/Medication Administration: 10/24/2020 2:14 PM Patient location during procedure: OR Timeout Performed Pre-procedure: timeout performed 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 Note HNO ID: [id number] Author: Devonte Zurita Service: Anesthesiology Author Type: Nurse Contact Acid Plant Operator Helper Type: Anesthesia Procedure Notes Filed: 10/24/2020 2:26 [...] October 24, 2020 TIME: 2:26 PM CSN: [id number] Note HNO ID: [id number] Author: Douglas Torrez Service: General Surgery Author Type: Physician Type: Brief Op Note Filed: 10/24/2020 4:36 PM Note Text: BRIEF OPERATIVE NOTE [facility] LOG ID: [id number] SURGERY/PROCEDURE DATE: 10/24/2020 INCISION/PROCEDURE START TIME: 2:28 PM INCISION CLOSE/PROCEDURE END TIME: 4:31 PM SURGEON(S) AND SVP CHIEF MARKETING OFFICER(S): Surgeon(s) and Role: * Ena Murray - Primary * Jarad Clarke (Res) DO Steven - Resident - Assisting * Presley Torrez - Resident - Assisting No Additional Staff PROCEDURES AND ANESTHESIA: Procedure(s) and Anesthesia Type: * LAPAROSCOPIC GASTRIC RESTRICTIVE SURG W/ BYPASS AND TREVOR-EN-Y Additional Source Comments INFORMATION SOURCE (unrecogn ized section and content) DATE CREATED AUTHOR 08/11/2020 [facility] DATE CREATED AUTHOR AUTHOR'S ORGANIZ ATION 10/18/2020 [facility] DATE CREATED AUTHOR AUTHOR'S ORGANIZ ATION 12/17/2020 [facility] DATE CREATED AUTHOR AUTHOR'S ORGANIZ ATION 06/21/2021 [facility] DATE CREATED AUTHOR AUTHOR'S ORGANIZ ATION 04/16/2022 [facility] DATE CREATED AUTHOR AUTHOR'S ORGANIZ ATION 05/10/2022 [facility] DATE CREATED AUTHOR AUTHOR'S ORGANIZ ATION 11/15/2023 [facility] DATE CREATED AUTHOR AUTHOR'S ORGANIZ ATION 11/22/2023 [facility] Care Team (unrecognized sect ion and content) Personnel Name: Vernon Castano III, DO Address: Address: [address] [place] [address] Ibm Bpm Architect Relationship Specialty Start Date End Date Vernon Castano III, DO [address] [place] [phone] (Work) PCP - General Family Practice 10/04/20 [employer] Relationship Specialty Start Date End Date Vernon Castano III, DO [address] [address] PCP - General Family Practice 10/04/20 Source Comments (unrecognize d section and content) In the event this informatio n is protected by the Federal Confidentiality of Alcohol and Drug Abuse Patient Records regulations: The Federal rules restrict any use of the information to criminally investigate or prosecute any alcohol or drug abuse patient.[facility] the event this information is protected by the Federal Confidentiality of Alcohol and Drug Abuse Patient Records regulations: The Federal rules restrict any use of the information to criminally investigate or prosecute any alcohol or drug abuse patient.[facility] Reason for Visit (unrecogniz ed section [...] BE BASED ON THE PRIMARY CLINICAL RECORDS. [facility] [employer] [facility]. provides no warranty or guarantee of the accuracy or completeness of information in this document.
--- NOTE | 2023-12-02 13:13 | P.CN_ITS ---
Consult Note: HPI Data of Consult Patient: known to practice within the last 3 years Consult date: 12/02/23 Requesting Physician: Aaliyah Hampton MD Primary Care Provider: PETEY BURNETT Consult Narrative Reason for consult: neck, right shoulder and arm pain, low back pain Narrative: 38yof who presents for assessment. she notes pain that radiates from neck into right shoulder and arm, as well as low back pain with numbness and tingling into bilateral lower extremities. recently underwent cervical and lumbar mri, which are significant for multilevel stenosis in the cervical stenosis, particularly at c5-6 and c6-7, as well as disc bulging with stenosis at l4-5 and l5-s1. continues in provider directed home exercise program for >6 weeks, with minimal benefit. continues on baclofen, lyrica, cymbalta. denies adverse med side effects. cc:: CC: Aaliyah Hampton MD Review of Systems ROS Status of ROS 10 or more systems reviewed and unremark able except as noted in history and below PFSH PFS Medical History Hiatal hernia ?K44.9 - Diaphragmatic hernia without obstruction or gangrene (ICD-10) Fibromyalgia ?M79.7 - Fibromyalgia (ICD-10) Osteoarthritis ?M19.90 - Unspecified osteoarthritis, unspecified site (ICD-10) Low back pain ?M54.50 - Low back pain, unspecified (ICD-10) Anxiety ?F41.9 - Anxiety disorder, unspecified (ICD-10) Acid reflux ?K21.9 - Gastro-esophageal reflux disease without esophagitis (ICD-10) Hypercholesterolemia ?E78.00 - Pure hypercholesterolemia, unspecified (ICD-10) Hypertension ?I10 - Essential (primary) hypertension (ICD-10) Surgical History H/O gastric bypass ?Z98.84 - Bariatric surgery status (ICD-10) S/P foot surgery, right ?Z98.890 - Other specified postprocedural states (ICD-10) S/P cholecystectomy ?Z90.49 - Acquired absence of other specified parts of digestive tract (ICD- 10) S/P ?Z98.891 - History of uterine scar from previous surgery (ICD-10) Social History Smoking status: Never smoker Meds Home Medications and Allergies Home Medications Medication Instructions Recorded Confirmed Type alprazolam 0.25 mg tablet (Xanax) 0.25 mg PO DAILY PRN anxiety 03/27/23 09/30/23 History baclofen 10 mg tablet 10 mg PO .hs PRN muscle spasm 03/27/23 09/30/23 History duloxetine 30 mg capsule,delayed 90 mg PO QDAY 03/27/23 09/30/23 History release pregabalin 50 mg capsule 50 mg PO TID 03/27/23 09/30/23 History propranolol 120 mg capsule,24 120 mg PO Q24H 03/27/23 09/30/23 History hr,extended release cariprazine 1.5 mg capsule 1.5 mg PO DAILY 08/09/23 09/30/23 History (Vraylar) ondansetron 4 mg disintegrating 4 mg PO DAILY PRN nausea and 08/09/23 09/30/23 History tablet vomiting rimegepant 75 mg disintegrating 75 mg PO DAILY PRN migraine 08/09/23 09/30/23 History tablet (Nurtec ODT) headache trazodone 50 mg tablet 50 mg PO DAILY 08/09/23 09/30/23 History diazepam 10 mg tablet (Valium) 10 mg PO BID PRN sedation 09/30/23 09/30/23 History pregabalin 75 mg capsule (Lyrica) 75 mg PO TID #90 caps 11/04/23 Rx Allergies Allergy/AdvReac Type Severity Reaction Status Date / Time latex Allergy Severe Rash Verified 09/30/23 09:40 amitriptyline AdvReac Mild Nausea Unverified 09/30/23 09:40 NSAIDS (Non-Steroidal AdvReac Verified 09/30/23 09:40 Anti-Inflamma Exam Narrative Exam Narrative: Psych-alert and oriented x 3.? Attentive and appropriate, constitutionally normal, displays normal mood and affect per situation.? There are no obvious deficits in memory, reasoning, or intellect.? Skin-no obvious rashes, bruising, or erythema noted to the patient's area of pain.? Extremities-upper extremities are warm with minimal edema and palpable pulses. Cervical- tenderness to palpation noted in the cervical spine and paraspinal musculature.? Pain is elicited with flexion, extension, and lateral rotation of the cervical spine.? Range of motion is diminished due to pain. Facet loading maneuvers are positive.? Strength-unremarkable and within normal limits with the exception to the right biceps, triceps.? Sensory-no notable sensory deficits in the bilateral upper extremities to touch or pinprick with the exception to decreased sensation to the right c5, 6, 7 dermatomal distribution.? Coordination remains intact.? Gait remains non-antalgic. Assessment and Plan Assessment and Plan (1) Cervical radiculopathy: (2) Cervical stenosis of spinal canal: (3) Lumbar spinal stenosis: Qualifiers: Neurogenic claudication status: with neurogenic claudication Qualified Code(s): M48.062 - Spinal stenosis, lumbar region with neurogenic claudication (4) Lumbar spondylosis: Plan 38yof who presents for assessment. failed conservative measures, as noted. imaging reviewed, as noted. given symptoms and imaging findings, prudent to at tempt right c5-6, 6-7 tfesi under fluoroscopic guidance. she is in agreement. medications reviewed. will increase lyrica to 100mg tid. follow up after procedure.
== END 2023-12-02 12:20 | disposition home or self-care (01) ==
PROVIDERS: PCP Physician Assistant; Visit Provider Anesthesiology
DX: M54.12 Radiculopathy, cervical region (principal); M48.02 Spinal stenosis, cervical region; M48.062 Spinal stenosis, lumbar region with neurogenic claudication
CPT/HCPCS: G0463

== ENCOUNTER 2023-12-09 08:55 | Day surgery (SDC) | payer OTHER, SELFPAY ==
--- OUTSIDE RECORDS SUMMARY | 2023-12-09 09:13 | XMS_ITS | CCD ---
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 Name Role Phone Vernon Castano III Primary [...] Admitting Unavailable KENTON, ANGELA Attending Unavailable KENTON, ANGEAL Consulting Unavailable KENTON, ANGELA Admitting Unavailable MISC, [...] Castano Referring Unavailable Zack BERMAN Attending Unavailable Gifletcheritis , Andrius Arellano Attending Unavailable Gicourtney KOENIG, Andrius Eileen Attending Unavailable Gicourtney KOENIG, Andrius Vytautandrzej Attending Unavailable Berta KOENIG, Andrius Vytautandrzej Attending Unavailable Berta KOENIG, Andrius Vytkaycee Attending Unavailable Berta KOENIG, Andrius Vytkaycee Attending Unavailable Gicourtney KOENIG, Aaliyah Arellano Attending Unavailable Allergies Allergy Classification Reported Allergen(s) Allergy Type Date of Onset Reaction(s) Facility (9 sources) Latex; Translations: [latex] Drug allergy 4 Cutaneous eruption (morphologic abnormality), Other: See Comments [facility] (13 sources) SUMAtriptan; Translations: [sumatriptan] Drug Allergy 7 Other: See Comments [facility] (1 source) Amitriptyline Drug Allergy [facility] (1 source) NSAIDs Drug allergy (disorder) [facility] (1 source) Plasmin Drug Allergy [facility] (2 sources) Adhesive bandage; Translations: [Adhesive Bandage] Propensity to adverse reactions (disorder) [facility] Repository Medications Current Medications Medication Drug Class(es) Dates Sig (Normalized) Sig (Original) atomoxetine 60 mg oral capsule (2 sources) Norepinephrine Reuptake Inhibitor Start: 10-28-2023 take 1 capsule by mouth once daily in the morning Strattera 60 mg Cap 60 mg = 1 cap(s), Oral, qAM, Refills(s) 0 Start Date: 10/28/23 Status: Ordered Start: 10-28-2023 take 1 capsule by mo [facility] once daily in the morning Strattera 40 [...] Daily, # 50 tab(s), Refills(s) 1, Pharmacy: [facility], 155, cm, 01/25/21 14:00:00 EDT, Height/Length [...] Pain, # 45 cap(s), Refills(s) 4, Pharmacy: [facility], 155, cm, 03/01/22 15:01:00 EDT, Height/Length [...] Ordered Start: 12-28-2020 take 1 capsule by [facility] once daily propranolol ER (INDERAL LA) [...] on above: Take 1 capsule by mo [facility] three times daily for 14 days. Lactobacillus acidophilus (2 sources) Lactobacillus acidophilus (PROBIOTIC ORAL) Take by mouth. 0 Active Comment on above: Take by mouth. levonorgestrel 0.211247 mg/hr intrauterine system (1 source) Progestin, Progestin-containing [...] on above: Take 1 tablet by antwan PRN(NO DISPENSE) for Migraine Headache (see administration [...] on above: Take 1,000 mcg by mo [facility] once daily. 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 Consent for Procedure/Surgery [id number] [facility] Ambulatory Visit Summaryon 0 11-11-2023 Ambulatory Visit Summary NICA ESCAMILLA :1985 Visit Date:11/11/2023 Ambulatory Visit Instructions Your Care Team Attending Physician - Zack BERMAN MD Primary Care Physician - Vernon Castano [...] for choosing us for your care. Normal [facility] Physician Referralon 024 Physician Referral [id number] Normal [facility] PREG HCG QUALon 04-20-2022 , QUAL Negative Normal NEGATIVE [facility] Comment on above: Performed By: #### P REG #### [facility] [address] [place] [address] Dr. Refugio Apple CNOVon 04-12-2022 CNOV Office Visit (PLASMN ) ANDINICA Douglas ([id number]) 1985 F Date Time Provider Department 04/12/22 [...] times d (more content not included)... Normal [facility] PREG HCG QUALon 04-06-2022 , QUAL Negative Normal NEGATIVE [facility] Comment on above: Performed By: #### P REG #### [facility] [address] [place] [address] Dr. Refugio Apple CHEMISTRYOrdered By: SYSTEM SYSTEM [...] [facility] Remisol Folate [Mass/Vol] ng/mL Normal >=6.7ng/mL [facility] Re misol CNOVon 11-10-2021 CNOV Office Visit (ELMER ) NICA ESCAMILLA ([id number]) 1985 F Date Time Provider Department 11/10/21 [...] mcg, Iron 45-60 mg and calcium citrate 4632-2790 mg/day PHYSICAL EXAMINATION: Weight loss: BMI 23.2 [...] Ena Murray MD Referring Provider: ENA MURRAY [[id number]] Allergies As of Date: 11/10/2021 Noted Allergy [...] JUANITA (a (more content not included)... Normal [facility]19 [facility] WO CON EXAMINATION: MRI CSP INE WO [...] by: MANOHAR ALONZO Date: 2021-11-10 14:28 [facility] Office Visit ([id number] ) NICA ESCAMILLA ([id number]) 1985 F Date Time Provider Department 06/15/21 11:30 AM ENA MURRAY [id number] During your visit today, we recorded the following information about you: Temperature Blood pressure Weight Height 97.4 degrees 133/89 61.2 kg 1.524 m Emily Gallagher Fran 06/15/2021 11:41 AM Signed What is the [...] call directly to schedule upper endoscopy at [phone]. Please leave a message if you receive the voicemail with your name, birthday, and reason for calling. Please expect a call or Picomizehart message with appointment information and instructions. What [...] is especially important if you have had fwrdn-klrqtkujs-rplbs surgery in the past. How is an [...] minutes for (more content not included)... Normal [facility] US breast RT limitedon 05-12 US breast RT limited [facility] [place] [address] Ultrasound Report Signed Patient: Nica Escamilla MR#: [id number] : 1985 Acct:[id number] Age/Sex: 36 / F ADM Date: 05/12/21 Loc: [facility] Room: Type: [facility] Attending Dr: Julianne KIDD, LAN ENGINEER-C Ordering Provider: MARTI Loera Date of Service: 05/12/21 US/US breast RT limited: RT LUMP Copies to: MARTI Loera LAN ENGINEER-C LIMITED RIGHT BREAST ULTRASOUND CLINICAL DATA: Palpable [...] Kaye Howell M.D.05/12/2021 10:45 AM Dictation Location: [facility] Tech: Ronit Avilajorden Transcribed By: RANCHO 05/12/21 104 Dictated By: Kaye Howell MD 05/12/211040 Signed By: 05/12/21 104 [facility] HISTORY PHYSICALon HISTORY PHYSICAL HNO ID: [id number] Author: Kalpana Otero MD Service: General Surgery [...] December 16, 2020 TIME: 9:33 AM Normal [facility] NURSING PROGon 12-16-2020 NURSING PROG HNO ID: [id number] Author: Yashira LauRn) DEEPTHI Nova Service: Nursing [...] None Electronically Signed By: Yashira Nova RN [facility] PT EDon 12-16-2020 PT ED HNO ID: [id number] Author: Manohar (Rn) DEEPTHI Conn Service: Nursing [...] None Electronically Signed By: Manohar Conn RN [facility] NURSING PROGon 10-25-2020 NURSING PROG HNO ID: [id number] Author: Dieog Abad RN Service: ? Author Type: Registered Nurse Type: Nursing Progress Note Filed: 10/25/2020 2:09 AM Note Text: Nursing Progress Note Patient Name: Nica Escamilla Patient Location: [address] Daily Note: 2000: Assessment complete see NPR. Pt present w/ nausea Zofran given. Pain 8/10 PRN pain med given. 0100: Nausea concerned by pt. Paged for second like prevention. 0130: Compazine ordered/given. No cough or SOB at this time. Lap sites intact no bruising. No gas passed yet. This note was completed by: Diego Abad [facility] PLAN OF CAREon 10-25-2020 PLAN OF CARE HNO ID: [id number] Author: Davina Bonilla (enStage) Service: Pharmacy Author Type: ? Type: Plan of Care Filed: 10/25/2020 2:56 PM Note Text: Pharmacy Discharge Medication Service: This patient has elected to receive their discharge prescriptions through the [facility] Bedside Prescription Delivery program. The prescriptions are currently being processed. A follow-up note will be entered once the prescriptions have been filled and delivered to the patient. Please contact me with any questions or updates to the patient's discharge medications. Davina Bonilla (enStage) DCT Contact Info: [id number] [facility] CARE HNO ID: [id number] Author: Davina Bonilla (enStage) Service: Pharmacy Author Type: ? 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 Patient to use [facility] Bedside Delivery - YES Insurance Information as follows: 2. Insurance card on file - YES 3. Credit card for payment - N/A [facility] PLAN OF CARE HNO ID: [id number] Author: Davina Bonilla (enStage) Service: Pharmacy Author Type: ? Type: Plan [...] or your Primary Care Provider. Davina Bonilla (Real Property Evaluator) PAGER: [phone] October 25, 2020 2:56 PM [facility] PROGRESSon 10-25-2020 PROGRESS HNO ID: [id number] Author: Presley Torrez Service: General Surgery Author [...] October 25, 2020 TIME: 7:02 AM Normal [facility] PROGRESS HNO ID: [id number] Author: Juliet Lilly Service: General Surgery Author [...] care Juliet Lilly MD General Surgery PGY1 [facility] PT EDon 10-25-2020 PT ED HNO ID: [id number] Author: Geoff Sheets) Krunal Service: Nutrition Therapy Author Type: [employer] Type: Patient Education Filed: 10/25/2020 12:04 PM [...] October 25, 2020 TIME: 12:04 PM PAGER: [phone] [facility] ANES POSTPROC EVALon 021 ANES POSTPROC EVAL HNO ID: [id number] Author: Brandon Stoddard Service: Anesthesiology Author Type: Anesthesiologist Type: Anesthesia Postprocedure Evaluation Filed: 10/24/2020 4:58 PM Note Text: POST ANESTHESIA EVALUATION NOTE : 1985 Procedure Summary Date: 10/24/20 Room / Location: [facility] OR05 / [facility] OR Anesthesia Start: 1402 [...] October 24, 2020 TIME: 4:58 PM CSN: [id number] [facility] ANES PRE-OPon 10-24-2020 ANES PRE-OP HNO ID: [id number] Author: Colin Archer Service: Anesthesiology Author Type: [...] October 24, 2020 TIME: 1:18 PM CSN: [id number] [facility] NURSING PROGon 10-24-2020 NURSING PROG HNO ID: [id number] Author: Sridevi LauRn) DEEPTHI Triana Service: Nursing Author Type: Registered Nurse Type: Nursing Progress Note Filed: 10/24/2020 6:56 PM Note Text: Nursing Progress Note Patient Name: Nica Escamilla Patient Location: [id number] Transfer Note: Patient transferred into room/unit PK325 in stable condition. Actions taken: No futher actions taken at this time. at bedside. Will continue to monitor and check with patient. This note was completed by: Sridevi Triana RN [facility] NURSING PROG HNO ID: [id number] Author: Gege (Rn) DEEPTHI Kenney Service: Nursing [...] None Electronically Signed By: Gege Kenney RN [facility] OPERATIVE NOon 10-24-2020 OPERATIVE NO HNO ID: [id number] Author: Ena Murray Service: General Surgery Author Type: Physician Type: Operative Report Filed: 10/26/2020 11:07 AM Note Text: [facility] - Operative Report NICA ESCAMILLA : 1985 AGE: 35. SEX: F PATIENT TYPE: I HOSP SV: GEN LOCATION: [facility] ATTENDING PHYSICIAN: Ena Murray MD CSN NUMBER: [id number] DATE OF SURGERY/PROCEDURE: 10/24/2020 INCISION/PROCEDURE START TIME: 2:28 PM INCISION CLOSE/PROCEDURE END TIME: 4:31 PM PREOPERATIVE DIAGNOSIS: Morbid obesity, BMI of 42. POSTOPERATIVE DIAGNOSIS: 1. Morbid obesity. 2. Hiatal hernia. SURGEON: Ena Murray MD CLINICAL ANALYST: Presley Torrez MD. SURGERY/PROCEDURE: 1. Laparoscopic repair [...] performed in the retroesophageal window and a [place] drain was passed. It was used to retract the esophagus. The posterior cruroplasty was completed using 1 asbioj-fb-ttcjc stitch using silk to tighten the sharri. [...] Torrez assisted in the absence of qualified certified surgical assistant help. He created the pouch and created the jejunojejunostomy. Ena Murray MD TA:[id number] Normal [facility] Confirm Blood Typeon 021 ABO/RH(D) Positive Normal [facility] Comment on above: Performed By: #### C ONABO ####[facility] [place], [place] [phone] HISTORY PHYSICALon HISTORY PHYSICAL HNO ID: [id number] Author: Amanda Shane (Pa) Service: ? Author Type: Physician Chicken Hanger Type: HANDP Filed: 10/17/2020 2:58 PM Note [...] fevers. 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 No neurological symptoms or problems. Respiratory: asthma, uses rescue about once every few weeks; no current resp sx. Had acute bronchitis last Fall, flared asthma for a while but is better now. Has environmental allergies Cardiovascular: No history of HTN requiring medication, no history of angina, CHF, [place], cardiac surgery or stents. Denies rest pain, gangrene or revascularization/amputation for PVD. No history of cardiovascular symptoms or problems. GI: Positive for GERD, no other GI sx. 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 I have also discussed medical [...] on recommendations of the [place]. Although we will perform appropriate precautions to [...] patient. Ena Murray MD Previous Version Normal [facility] HEPATITIS B SURFACE AB IMMUN ITY, QNon 08-11-2020 HEPATITIS B SURFACE AB IMMUNITY, QN >1000 Normal > OR = 10 [facility] Comment on above: Result Comment: Patient has immunity to hepatitis B virus. For additional information, please refer to http://education.MyCabbage/faq/ORA807 (This link is being provided for informational/ educational purposes only). Performed By: #### 8 475 #### [facility], [address] [place] [phone] Hot Punch Press Operator: iSxto Chandler MD Vital Signs Date Time Vital Sign Value Performing Clinician Facility 10-16-2022 12:53-0500 Diastolic blood pressure 80 mm[Hg] Otis [facility] 10-16-2022 12:53-0500 Heart rate 55 /min [facility] 10-16-2022 12:53-0500 Mean blood pressure 89 mm[Hg] Ot[facility] 10-16-2022 12:53-0500 Respiratory rate 18 /min Ot[facility] 10-16-2022 12:53-0500 Systolic blood pressure 108 mm[Hg] [facility] 08-28-2022 08:52-0500 Heart rate 70 /min Ot[facility] Mar[facility] 08-28-2022 08:52-0500 SaO2% (BldA) [Mass fraction] 100 % Otis Mar[facility] 08-28-2022 08:52-0500 Respiratory rate 16 /min Ot[facility] 08-28-2022 08:52-0500 Diastolic blood pressure 80 mm[Hg] Otis Mar[facility] 08-28-2022 08:52-0500 Mean blood pressure 93 mm[Hg] Otis Mar[facility] 08-28-2022 08:52-0500 Systolic blood pressure 121 mm[Hg] Otis Marcin [facility] 08-28-2022 08:46-0500 Heart rate 70 /min Otis Mar[facility] 08-28-2022 08:46-0500 SaO2% (BldA) [Mass fraction] 100 % Otis Mar[facility] 08-28-2022 08:46-0500 Body temperature 97.52 [degF] Oits Marcin [facility] 08-28-2022 08:46-0500 Diastolic blood pressure 69 mm[Hg] Otis Marcin [facility] 08-28-2022 08:46-0500 Mean blood pressure 80 mm[Hg] Otis Mar[facility] 08-28-2022 08:46-0500 Systolic blood pressure 104 mm[Hg] Otis Marcin [facility] 08-28-2022 08:46-0500 Respiratory rate 16 /min Otis Marcin [facility] 08-28-2022 08:41-0500 Diastolic blood pressure 64 mm[Hg] Otis Marcin [facility] 08-28-2022 08:41-0500 Systolic blood pressure 102 mm[Hg] Otis Marcin [facility] 08-28-2022 08:40-0500 Heart rate 71 /min Otis Marcin [facility] 08-28-2022 08:40-0500 Respiratory rate 12 /min Otis Marcin [facility] 08-28-2022 08:40-0500 SaO2% (BldA) [Mass fraction] 100 % Otis Marcin [facility] 08-28-2022 08:35-0500 Respiratory rate 12 /min Otis Marcin [facility] 08-28-2022 08:30-0500 Respiratory rate 12 /min Otis Burch [facility] 08-28-2022 07:17-0500 Mean blood pressure 78 mm[Hg] Otis Marcin [facility] 08-28-2022 07:17-0500 Respiratory rate 16 /min Ot[facility] B[facility] 08-28-2022 07:17-0500 Body temperature 98.24 [degF] [facility] B[facility] 04-12-2022 14:47-0400 Body height 152.4 cm Lazara Vogel MD Work Phone: [facility] 04-12-2022 14:47-0400 Body temperature 98.91 [degF] Lazara Vogel MD Work Phone: [facility] 04-12-2022 14:47-0400 Body weight 55.52 kg Lazara Vogel MD Work Phone: [facility] 04-12-2022 14:47-0400 Diastolic blood pressure 92 mm[Hg] Lazara Vogel MD Work Phone: [facility] 04-12-2022 14:47-0400 Heart rate 65 /min Lazara Vogel MD Work Phone: [facility] 04-12-2022 14:47-0400 Systolic blood pressure 140 mm[Hg] Lazara Vogel MD Work Phone: [facility] 03-01-2022 14:59-0400 Diastolic blood pressure 86 mm[Hg] Mixon SALAM [facility] 03-01-2022 14:59-0400 Heart rate 52 /min Mixon SALAM [facility] 03-01-2022 14:59-0400 Systolic blood pressure 130 mm[Hg] Mixon SALAM [facility] Encounters Encounter Date Encounter Type Care Provider Facility Start: 12-02-2023 End: 12-03-2023 ambulatory Aaliyah Hampton MD Facility: [facility] Start: 11-11-2023 End: 11-12-2023 ambulatory Vernon Castano Facility:[facility] Start: 11-11-2023 End: 11-26-2023 Pre-admission assessment Zack BERMAN [facility] Start: 11-04-2023 End: 11-05-2023 ambulatory Aaliyah Hampton MD Facility: [facility] Start: 10-21-2023 ambulatory Vernon Castano Facility : [facility] Start: 09-30-2023 End: 10-01-2023 ambulatory Aaliyah Hampton MD Facility: [facility] Start: 04-29-2023 End: 04-30-2023 ambulatory Aaliyah Hampton MD Facility:[facility] Start: 04-15-2023 End: 04-16-2023 ambulatory Aaliyah Hampton MD Facility:[facility] Start: 04-01-2023 End: 04-02-2023 ambulatory Aaliyah Hampton MD Facility:[facility] Start: 03-25-2023 End: 03-26-2023 ambulatory Aaliyah Hampton MD Facility:[facility] Start: 10-16-2022 End: 10-16-2022 Pain Management Otis Burch [facility] Start: 08-28-2022 End: 08-28-2022 Pain Management Otis Burch [facility] Start: 05-04-2022 End: 05-05-[address] [...] End: 03-01-2022 Patient encounter procedure Oral DIETZ [facility] Start: 11-10-2021 End: 11-11-2021 ambulatory PETEY HORTENCIA Facility:[facility] Start: 05-24-2021 End: 06-28-[address] DOCTOR BEAR Facility:[facility] Procedures Date Procedure Procedure Detail Performing Clinician Start: 08-28-2022 Radiofrequency ablation of medial branch of lumbar nerve using fluoroscopic guidance Otis Burch Comment on above: L4/5 +L5/S1 40-50% relief Start: 10-17-2020 Antibody screen Comment on above: Performed By: #### [id number] ####[id number] [place], [place] [phone] Start: 05-09-2020 Adult depression screening assessment Lazara Vogel MD Work Phone: Start: 04-18-2020 Colonoscopy Oral DIETZ Start: 04-18-2020 Esophagogastroduodenoscopy Mixonkaylynn DIETZ section Mixonkaylynn DIETZ section Zack Albarado Cholecystectomy Mixon J LUIS Fasciotomy of foot Zack HOFFMAN Trevor-en-Y gastrojejunostomy Zack BERMAN Plan of Treatment Date Care Activity Detail Author Start: 05-17-2022 Influenza vaccination INFLUENZA (#1) [facility] Start: 05-09-2021 Adult depression screening assessment DEPRESSION SCREENING [facility] Start: 04-10-2021 COVID-19 VACCINE (3 - Booster for Moderna series) COVID-19 VACCINE (3 - Booster for Moderna series) [facility] Start: 2013 HPV TESTING HPV TESTING [facility] Start: 02-22-2004 PAP TESTING PAP TESTING [facility] Start: 2002 Urine microalbumin profile DTAP,TDAP,TD (1 - Tdap) [facility] Start: 2001 ANNUAL PCP TEAM TIE TAMPER 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 VISIT ANNUAL PCP TEAM CHRONIC DISEASE VISIT [facility] Start: 2001 BP CONTROLLED (<130/80) BP CONTROLLE D (<130/80) [facility] Start: 2001 HEPATITIS C SCREENING HEPATITIS C SC RAPHAEL [facility] Start: 2001 HIV SCREENING HIV SCREENING [facility] Start: 2001 SPIROMETRY SPIROMETRY [facility] Start: 1989 PNEUMOCOCCAL (1 - PCV) PNEUMOCOCCAL (1 - PCV) [facility] Immunizations Immunization Date Immunization Notes Care Provider Trudy victor hugo 11-11-2020 SARS-CoV-2 (COVID-19 ) mRNA-1273 vaccine Zack ANTONELLA [facility] Comment on above: Result Comment: 2023: TPV20 09-28-2020 COVID-19 vaccine, fu ll dose (MODERNA) Lazara Vogel MD Work Phone: [facility] Comment on above: Result Comment: 2023: TPV20 07-01-2020 influenza, injectabl e, quadrivalent, preservative free Lazara Vogel MD Work Phone: [facility] 06-17-2020 influenza virus vaccine, unspecified formulation Lazara Vogel MD Work Phone: [facility] NEGATED: Highlighted row has not occurred!11-11-2023 influenza virus vaccine, unspecified formulation Zack BERMAN [facility] Payers Date Payer Category Payer Medicaid [id number] 2022 Private Health Insurance 2022 Unknown 2022 Unknown [id number] 2018 Medicaid UHC MEDICAID UHC COMMUNITY [employer]AN MEDICAID [id number] 2018-Present [phone] [address] [place] [address] Medicaid [id number] 1985 Unknown [id number] 2.16.840.1.606088.3.579.2. 593 1985 Unknown [id number] 2.16.840.1.040973.3.579.2. 593 1985 Unknown [id number] 2.16.840.1.672118.3.579.2. 593 1985 Unknown [id number] 2.16.840.1.002894.3.579.2. 593 1983 Unknown [id number] 2.16.840.1.782760.3.579.2. 593 1983 Unknown [id number] 2.16.840.1.051423.3.579.2. 593 1985 Unknown [id number] 2.16.840.1.819018.3.579.2. 593 1985 Unknown [id number] 2.16.840.1.815630.3.579.2. 727 1985 Unknown [id number] 2.16.840.1.222730.3.579.2. 196 1985 Unknown [id number] 2.16.840.1.976495.3.579.2. 196 1983 Unknown [id number] 2.16.840.1.325163.3.579.2. 196 1983 Unknown [id number] 2.16.840.1.805610.3.579.2. 196 1983 Unknown [id number] 2.16.840.1.235005.3.579.2. 196 1983 Unknown [id number] 2.16.840.1.574015.3.579.2. 196 1983 Unknown [id number] 2.16.840.1.234735.3.579.2. 196 1959 Unknown [id number] Social History Date Type Detail Facility Start: 03-01-2022 End: 11-11-2023 Tobacco smoking status Never smoked tobacco (finding) [facility] Tobacco smoking status Never [facility] Sex Assigned At Female [facility] Start: 06-27-2017 Tobacco use and exposure Smokeless tobacco non-user [facility] Start: 04-12-2022 Alcohol intake Current drinke r of alcohol (finding) [facility] Start: 04-12-2022 [facility] Start: 01-05-2020 History SDOH Alcohol Frequency 3 [facility] Start: 01-05-2020 History SDOH Alcohol Std Drinks 1 [facility] Start: 10-17-2020 History SDOH Alcohol Comment once a month, 1 drink [facility] Start: 1985 Sex Assigned At Not on file C [facility] Start: 04-01-2022 End: 04-11-2022 Exposure to SARS-CoV-2 (event) Not sure [facility] Functional Status Date Assessment Result Facility 10-16-2022 Functional Status N/A [facility] 08-28-2022 Functional Status N/A [facility] Clinical Notes 05-04-2020 to 11-11-2023 Note Date [...] Brother. Colon ca (more content not included)... [facility] Comment on above: Result Comment: Elec tronically Signed By: ANTONELLA KOENIG, Zack Carson\Date and Time Signed: 11/11/23 13:28 EST 10-16-2022 Evaluation + Plan note Extrac andres from: Title:FUV Author:Marcin KOENIG, Otis Mobley Date :10/16/22 Impression and Plan 37-year-old female [...] concerns. Patient agrees with plan of care. [facility]07-28-2022 NoteHNO ID: [id number] Author: ST Rick Service: ? Author Type: Salvage Cutter Type: Progress Notes Filed: 04/12/2022 3:50 PM Note Text: DATE OF PHOTOS: 04/12/2022 Body Part: Breasts, Abdomen, Leg(s) and Arms ST Rick April 12, 2022 3:49 [facility]07-28-2022 History of Present illness Narrative* ST Rick - 04/12/2022 3:49 PM EDT DATE OF PHOTOS: 04/12/2022 Body Part: Breasts, Abdomen, Leg(s) and Arms [facility] Rick April 12, 2022 3:49 PM [facility] NoteHNO ID: [id number] Author: Lazara Vogel MD Service: ? Author [...] this visit. ALLERGIES A (more content not included)...[facility]07-27-2022 History of Present illness Narrative* Lazara [...] independently gathered by the clinical customer support agent and the remaining scribed note accurately describes [...] weeks. Lazara Vogel MD [facility] Evaluation + Plan note Diagnostic Tests [...] Level 04/25/21 * Vitamin B12 Level 04/25/21 [facility]02-25-2022 NoteHNO ID: [id number] Author: Ena Murray MD Service: ? Author [...] mcg, Iron 45-60 mg and calcium citrate 4052-3789 mg/day PHYSICAL EXAMINATION: Weight loss: BMI 23.2 [...] ? Doing great ? EGD Ena Murray [facility]09-30-2021 NoteHNO ID: [id number] Author: Ena Murray MD Service: ? Author [...] mcg, Iron 45-60 mg and calcium citrate 4507-7723 mg/day ? COMPLETE REVIEW OF SYSTEMS Constitutional--Negative [...] which included preparing to see the patient, [id number] patient care and completing clinical documentation.[facility]08-10-2021 Evaluation + Plan note Future Scheduled Tests Laboratory* Copper Level 04/25/21 * Zinc Level 04/25/21 * Vitamin A Level 04/25/21 * Vitamin B1 04/25/21 * Vitamin B6 Lvl 04/25/21 * Vitamin D 25 Hydroxy 04/25/21 * Ferritin 04/25/21 * Folate Level 04/25/21 * Iron Level 04/25/21 * Magnesium Level 04/25/21 * Vitamin B12 Level 04/25/21 [facility] [id number] History of Past illness Narrative* Problem Noted Date Resolved Date Morbid obesity 05/04/2020 01/23/2021 documented as of this encounter (statuses as of 04/12/2022) [facility]08-19-2020 History of Past illness Narrative* Problem Noted Date Resolved Date Morbid obesity 05/04/2020 01/23/2021 documented as of this encounter (statuses as of 04/12/2022) [facility] App[facility]ments Appointment Date:09/24/2022 10:30:00 AM Scheduled Provider:Sridevi Goetz PA-C Location:[facility] Appointment Type:Pain Management - [facility]) [facility] Diagnosis Hx of bariatric surgery- Primary Bariatric surgery status Excess skin documented in this encounter [facility] course Narrative No data available for this section [facility] Hospital Discharge instructions No data available for this section [facility] Progress note No data available for this section [facility] Summary Purpose Family History No Family History Records FoundNo Family History Records FoundNo Family History Records FoundNo Family History Records FoundNo Family History Records FoundNo Family History Records FoundNo Family History Records Found No data available for this section No Family History Records Found Advance Directives No Advanced Directives Records FoundDocuments on File Type Date Recorded 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 Note HNO ID: [id number] Author: Devonte uZrita Service: Anesthesiology Author Type: Nurse Sound Engineer Type: Anesthesia Procedure Notes Filed: 10/24/2020 2:25 PM Note Text: ANESTHESIOLOGY PROCEDURE NOTE Airway General Information Procedure Start Time/Medication Administration: 10/24/2020 2:14 PM Patient location during procedure: OR Timeout Performed Pre-procedure: timeout performed Patient identity confirmed: arm band, care steamer blocker and patient Staffing Anesthesiologist: Brandon Stoddard EGG BREAKING MACHINE OPERATOR: Pallavi Zurita Performed by: SHAVON Indications and [...] (more content not included)... Note HNO ID: [id number] Author: Devonte Zurita Service: Anesthesiology Author Type: Nurse Sound Engineer Type: Anesthesia Procedure Notes Filed: 10/24/2020 2:26 [...] October 24, 2020 TIME: 2:26 PM CSN: [id number] Note HNO ID: [id number] Author: Douglas Torrez Service: General Surgery Author Type: Physician Type: Brief Op Note Filed: 10/24/2020 4:36 PM Note Text: BRIEF OPERATIVE NOTE [facility] LOG ID: [id number] SURGERY/PROCEDURE DATE: 10/24/2020 INCISION/PROCEDURE START TIME: 2:28 PM INCISION CLOSE/PROCEDURE END TIME: 4:31 PM SURGEON(S) AND CLINICAL ANALYST(S): Surgeon(s) and Role: * Ena Murray - Primary * Jarad Clarke (Res) DO Steven - Resident - Assisting * Presley Torrez - Resident - Assisting No Additional Staff PROCEDURES AND ANESTHESIA: Procedure(s) and Anesthesia Type: * LAPAROSCOPIC GASTRIC RESTRICTIVE SURG W/ BYPASS AND TREVOR-EN-Y Procedure Findings Note HNO ID: [id number] Author: Devonte Zurita Service: Anesthesiology Author Type: Nurse Sound Engineer Type: Anesthesia Procedure Notes Filed: 10/24/2020 2:25 PM Note Text: ANESTHESIOLOGY PROCEDURE NOTE Airway General Information Procedure Start Time/Medication Administration: 10/24/2020 2:14 PM Patient location during procedure: OR Timeout Performed Pre-procedure: timeout performed Patient identity confirmed: arm band, care steamer blocker and patient Staffing Anesthesiologist: Brandon Sotddard EGG BREAKING MACHINE OPERATOR: Pallavi Zurita Performed by: SHAVON Indications and [...] (more content not included)... Note HNO ID: [id number] Author: Devonte Zurita Service: Anesthesiology Author Type: Nurse Sound Engineer Type: Anesthesia Procedure Notes Filed: 10/24/2020 2:26 [...] October 24, 2020 TIME: 2:26 PM CSN: [id number] Note HNO ID: [id number] Author: Douglas Torrez Service: General Surgery Author Type: Physician Type: Brief Op Note Filed: 10/24/2020 4:36 PM Note Text: BRIEF OPERATIVE NOTE [facility] LOG ID: [id number] SURGERY/PROCEDURE DATE: 10/24/2020 INCISION/PROCEDURE START TIME: 2:28 PM INCISION CLOSE/PROCEDURE END TIME: 4:31 PM SURGEON(S) AND CLINICAL ANALYST(S): Surgeon(s) and Role: * Ena Murray - [...] DATE CREATED AUTHOR AUTHOR'S ORGANIZ ATION 10/18/2020 [facility] DATE CREATED AUTHOR AUTHOR'S ORGANIZ ATION 12/17/2020 [facility] DATE CREATED AUTHOR AUTHOR'S ORGANIZ ATION 06/21/2021 [facility] DATE CREATED AUTHOR AUTHOR'S ORGANIZ ATION 04/16/2022 [facility] DATE CREATED AUTHOR AUTHOR'S ORGANIZ ATION 05/10/2022 [facility] DATE CREATED AUTHOR AUTHOR'S ORGANIZ ATION 11/15/2023 [facility] DATE CREATED AUTHOR AUTHOR'S ORGANIZ ATION 12/06/2023 [facility] Care Team (unrecognized sect ion and content) Latex Ribbon Machine Operator Relationship Specialty Start Date End Date Vernon Castano III, DO [address] [place] [address] PCP - General Family Practice 10/04/20 Latex Ribbon Machine Operator Relationship Specialty Start Date End Date Vernon Castano III, DO [address] [place] [address] PCP - General Family Practice 10/04/20 Source Comments (unrecognize d section and content) In the event this informatio n is protected by the Federal Confidentiality of Alcohol and Drug Abuse Patient Records regulations: The Federal rules restrict any use of the information to criminally investigate or prosecute any alcohol or drug abuse patient.[facility] the event this information is protected by the Federal Confidentiality of Alcohol and Drug Abuse Patient Records regulations: The Federal rules restrict any use of the information to criminally investigate or prosecute any alcohol or drug abuse patient.[facility] Reason for Visit (unrecogniz ed section [...] BE BASED ON THE PRIMARY CLINICAL RECORDS. [facility] [email or web address] [facility]. provides no warranty or guarantee of the accuracy or completeness of information in this document.
[2023-12-09 09:22] LABS: HCG Qualitative NEGATIVE (NEGATIVE)
[2023-12-09 09:46] VITALS: BP 124/89; PULSE 69; RESP 16; TEMP 36.1; O2SAT 100
[2023-12-09 10:38] VITALS: BP 120/75; PULSE 60; RESP 18; O2SAT 91
[2023-12-09] MEDS: IOHEXOL 240 MG/ML - 10 ML VIAL INJ (10:41)
[2023-12-09] MEDS: DEXAMETHASONE SOD PHOS 10 MG/ML VIAL INJ (10:41)
[2023-12-09] MEDS: BUPIVACAINE HCL 0.25% PF 25 MG/10 ML VIAL INJ (10:41)
[2023-12-09] MEDS: LIDOCAINE HCL 2% PF 100 MG/5 ML VIAL INJ (10:42)
[2023-12-09 10:43] VITALS: BP 118/73; PULSE 60; RESP 18; O2SAT 99
--- NOTE | 2023-12-09 10:43 | P.ON_ITS ---
Date of procedure: 12/09/23 Pre-op diagnosis: M54.12 Post-op diagnosis: same as pre-op Procedure: Procedure: Right C5-6, 6-7 transforaminal epidural steroid injection Medications: Bupivacaine 0.25% 1cc, lidocaine 2% 1cc, dexamethasone 10mg The patient was seen and examined in the preoperative holding area.? Informed consent was obtained and placed on the chart.? Patient was brought to the medical procedure unit and placed in the prone position where a timeout was completed verifying the correct patient, procedure site, position, and planned special equipment using sterile aseptic technique.? Under direct fluoroscopic visualization a 25-gauge Quincke tipped spinal needle was advanced to the designated neural foramen where contrast dye was injected to show adequate spread.? The needle was inserted at level right C5-6. There was no evidence of vascular or adverse uptake.? Epidural spread was appreciated.? The above- mentioned injectate was then placed in a 1.5 mL aliquot preceded by negative aspiration.? The needle was removed. The needle was inserted and the procedure repeated at level right C6-7.? The surgery site was covered.? Patient was taken to the postprocedural recovery area and monitored for an appropriate length of time before found suitable for discharge in the accompaniment of a responsible adult. Anesthesia: Local Surgeon: Aaliyah Hampton Pathology: none sent Condition: stable Disposition: no change
== END 2023-12-09 10:47 | disposition home or self-care (01) ==
LOC: SURGOUT 08:55
PROVIDERS: PCP Physician Assistant; Visit Provider Anesthesiology
DX: M54.12 Radiculopathy, cervical region (principal)
CPT/HCPCS: 36415; 64479; 64480; 84703; J1100; Q9966

== ENCOUNTER 2023-12-16 14:08 | Outpatient (OUT) | payer OTHER, SELFPAY ==
--- NOTE | 2023-12-16 14:31 | P.CN_ITS ---
Consult Note: HPI Data of Consult Patient: known to practice within the last 3 years Consult date: 12/16/23 Requesting Physician: Aaliyah Hampton MD Primary Care Provider: PETEY BURNETT Consult Narrative Reason for consult: low back, bilateral lower extremity pain Narrative: 38yof who presents for assessment. had significant relief after recent cervical epidural steroid injection. now primarily has significant low back pain with radiation. imaging shows multilevel degeneration and disc bulging, with result ant stenosis at l4-5 and l5-s1. has had TFESIs in the past, which provider >50% relief for over 3 months. last completed in march 2023. has completed >6 weeks of provider directed home exercise program, without lasting benefit. continues to utilize lyrica, tylenol, muscle relaxant, cannot tolerate nsaids. denies adverse med side effects otherwise. cc:: CC: Aaliyah Hampton MD Review of Systems ROS Status of ROS 10 or more systems reviewed and unremark able except as noted in history and below [facility] Medical History Hiatal hernia ?K44.9 - Diaphragmatic hernia without obstruction or gangrene (ICD-10) Fibromyalgia ?M79.7 - Fibromyalgia (ICD-10) Osteoarthritis ?M19.90 - Unspecified osteoarthritis, unspecified site (ICD-10) Low back pain ?M54.50 - Low back pain, unspecified (ICD-10) Anxiety ?F41.9 - Anxiety disorder, unspecified (ICD-10) Acid reflux ?K21.9 - Gastro-esophageal reflux disease without esophagitis (ICD-10) Hypercholesterolemia ?E78.00 - Pure hypercholesterolemia, unspecified (ICD-10) Hypertension ?I10 - Essential (primary) hypertension (ICD-10) Surgical History H/O gastric bypass ?Z98.84 - Bariatric surgery status (ICD-10) S/P foot surgery, right ?Z98.890 - Other specified postprocedural states (ICD-10) S/P cholecystectomy ?Z90.49 - Acquired absence of other specified parts of digestive tract (ICD- 10) S/P ?Z98.891 - History of uterine scar from previous surgery (ICD-10) Social History Smoking status: Never smoker Meds Home Medications and Allergies Home Medications ?Medication ?Instructions ?Recorded ?Confirmed ?Type alprazolam 0.25 mg tablet (Xanax) 0.25 mg PO DAILY PRN anxiety 03/27/23 12/09/23 History baclofen 10 mg tablet 10 mg PO .hs PRN muscle spasm 03/27/23 12/09/23 History duloxetine 30 mg capsule,delayed 90 mg PO QDAY 03/27/23 12/09/23 History release pregabalin 50 mg capsule 50 mg PO TID 03/27/23 12/09/23 History propranolol 120 mg capsule,24 120 mg PO Q24H 03/27/23 12/09/23 History hr,extended release cariprazine 1.5 mg capsule 1.5 mg PO DAILY 08/09/23 12/09/23 History (Vraylar) ondansetron 4 mg disintegrating 4 mg PO DAILY PRN nausea and 08/09/23 12/09/23 History tablet vomiting rimegepant 75 mg disintegrating 75 mg PO DAILY PRN migraine 08/09/23 12/09/23 History tablet (Nurtec ODT) headache trazodone 50 mg tablet 50 mg PO DAILY 08/09/23 12/09/23 History pregabalin 75 mg capsule (Lyrica) 75 mg PO TID #90 caps 11/04/23 Rx Allergies Allergy/AdvReac Type Severity Reaction Status Date / Time latex Allergy Severe Rash Verified 12/09/23 09:51 amitriptyline AdvReac Mild Nausea Verified 12/09/23 09:51 NSAIDS (Non-Steroidal AdvReac Verified 12/09/23 09:51 Anti-Inflamma Exam Narrative Exam Narrative: Psych-alert and oriented x 3. Attentive and appropriate, constitutionally normal, displays normal mood and affect per situation. There are no obvious deficits in memory, reasoning, or intellect.? Skin-no obvious rashes, bruising, erythema noted to the patient's area of pain.? Extremities- extremities are warm with minimal edema and palpable pulses. Lumbar-tenderness to palpation noted in the lumbar spine and paraspinal musculature. Pain is elicited with flexion, extension, and lateral rotation of the lumbar spine. Range of motion is diminished with these motions. Facet loading maneuvers are positive.? Strength-noted to be unremarkable with the exception of decreased strength rated at 4 out of 5 in bilateral quadriceps femoris, anterior tibialis. Sensory-no notable sensory deficits in the bilateral lower extremities to touch or pinprick in all dermatomal distributions with the exception to decreased sensation to the bilateral l4, 5 dermatomal distribution Coordination remains intact.? Gait remains non-antalgic. Assessment and Plan Assessment and Plan (1) Lumbar disc displacement without myelopathy: (2) Lumbar spinal stenosis: Qualifiers: Neurogenic claudication status: with neurogenic claudication Qualified Code(s): M48.062 - Spinal stenosis, lumbar region with neurogenic claudication Plan 38yof who presents for assessment. significant relief with cervical tfesis. now has persistent low back, bilateral lower extremity symptoms. imaging reviewed, as noted. failed physical and medical modalities, as noted. given symptoms and imaging, prudent to attempt bilateral l5-s1 tfesi under fluoroscopic guidance. depending on response, may benefit from bilateral l4-5 tfesi under fluoroscopic guidance. she is in agreement. meds reviewed, no changes. follow up after procedure.
== END 2023-12-16 14:09 | disposition home or self-care (01) ==
LOC: PM 14:09
PROVIDERS: PCP Physician Assistant; Visit Provider Anesthesiology
DX: M51.26 Other intervertebral disc displacement, lumbar region (principal); M48.062 Spinal stenosis, lumbar region with neurogenic claudication
CPT/HCPCS: G0463

== ENCOUNTER 2023-12-25 08:31 | Day surgery (SDC) | payer OTHER, SELFPAY ==
--- NOTE | 2023-12-25 | OP_ITS ---
OPERATION DATE: 12/25/2023 PREOPERATIVE DIAGNOSIS: Enlarging lipoma left mid back. POSTOPERATIVE DIAGNOSIS: Enlarging lipoma left mid back. PROCEDURE: Excisional biopsy enlarging lipoma left mid back. SURGEON: Zack Kaiser M.D. ANESTHESIA: Local with 0.5% Marcaine plain. ESTIMATED BLOOD LOSS: Less than 3 mL. INDICATIONS AND CONSENT: Patient is a 38-year-old female with history of enlarging lipoma of the left mid back. Indications, risks, benefits, alternatives of proceeding with excisional biopsy under local anesthesia were explained extensively to the patient, including risks of bleeding, infection, scarring, pain, recurrence and need for further surgery. All of her questions were answered. Informed consent was obtained. PROCEDURE: Patient was brought to the operating room, placed in the right lateral decubitus position. The area was prepped and draped in the usual sterile fashion. The area was anesthetized with 0.5% Marcaine plain. Incision was made over the long axis of the lipoma, in the area of the skin crease, and carried down through subcutaneous tissue using sharp dissection. There was noted to be a 3 cm deep, encapsulated lipoma that was freed up and sent off to Pathology. The deep tissues were re-approximated with interrupted 4-0 Monocryl suture as well as the subcutaneous sutures. The skin was closed with a running 4-0 subcuticular Monocryl suture and skin glue. Sterile pressure dressing was applied. Sponge and needle counts were correct x3 per nursing personnel. Patient tolerated procedure well, was sent back to the recovery area in good condition and discharged to home. She is to follow up in 7-10 days for wound check and pathology results. She is to call sooner with any problems or questions. CC: DEE Neumann
[2023-12-25 08:35] VITALS: BP 132/71; PULSE 80; TEMP 36.1; O2SAT 98
[2023-12-25 09:51] VITALS: BP 133/79; PULSE 76; O2SAT 96
[2023-12-25] MEDS: BUPIVACAINE HCL 0.5% PF 50 MG/10 ML VIAL 5 ML INJ (09:57)
[2023-12-25 10:24] VITALS: BP 113/70; PULSE 60; O2SAT 95
== END 2023-12-25 10:30 | disposition home or self-care (01) ==
PROVIDERS: PCP Physician Assistant; Visit Provider Surgery
PROC: (CPT 21930; principal; 2023-12-25 09:30)
DX: D17.1 Benign lipomatous neoplasm of skin and subcutaneous tissue of trunk (principal); I10 Essential (primary) hypertension; E78.00 Pure hypercholesterolemia, unspecified; F41.8 Other specified anxiety disorders; F32.A Depression, unspecified; Z86.010 Personal history of colon polyps; K21.9 Gastro-esophageal reflux disease without esophagitis; J45.909 Unspecified asthma, uncomplicated; R12 Heartburn; Z98.84 Bariatric surgery status; G47.30 Sleep apnea, unspecified; Z90.49 Acquired absence of other specified parts of digestive tract
CPT/HCPCS: 21930; 88304; 99999

== ENCOUNTER 2024-01-06 08:07 | Day surgery (SDC) | payer OTHER, SELFPAY ==
--- OUTSIDE RECORDS SUMMARY | 2024-01-06 08:24 | XMS_ITS | CCD ---
Author Organization [facility] Care Team Providers Care Ict Teacher Name Role Phone Vernon Castano III Primary [...] Primary Care Unavailable HORTENCIA, PETEY Consulting Unavailable Gifletcheritis , Andrius Vytkaycee Attending Unavailable Giedraitis , Andrius Vytautas Attending Unavailable Giedraitis , Andrius Vytautas Attending Unavailable Gieditis , Andrius Vytautas Attending Unavailable Gicourtney KOENIG, Andrius Vytautas Attending Unavailable Berta KOENIG, Andrius Vytautas Attending Unavailable Gicourtney KOENIG, Andrius Vytautas Attending Unavailable Giedalejandra KOENIG, Aaliyah Arellano Attending Unavailable MD Zack Kaiser Attending Provider [phone] Zack Kaiser Attending Unavailable Zack Kaiser Admitting Unavailable Zack KAISER Attending Unavailable Vernon Castano Referring Unavailable Zack KAISER Attending Unavailable Zack KAISER Attending Unavailable Allergies Allergy Classification Reported Allergen(s) Allergy Type Date of Onset Reaction(s) Facility (11 sources) Latex; Translations: [latex] Drug allergy 4 Cutaneous eruption (morphologic abnormality), Other: See Comments [facility] (14 sources) SUMAtriptan; Translations: [sumatriptan] Drug Allergy 7 Other: See Comments [facility] (1 source) Amitriptyline Drug Allergy [facility] (1 source) NSAIDs Drug allergy (disorder) [facility] (1 source) Plasmin Drug Allergy [facility] (2 sources) Adhesive bandage; Translations: [Adhesive Bandage] Propensity to adverse reactions to substance [facility] [place] (1 source) SUMAtriptan Drug Allergy 8 [facility] Medications Current Medications Medication Drug Class(es) Dates Sig (Normalized) Sig (Original) amitriptyline hydrochloride 25 mg oral tablet (1 source) Tricyclic Antidepressant Start: 05-06-2018 take 25 mg by mouth once daily at bedtime Amitriptyline Active 25 MG PO Daily at bedtime May 06, 2018 12:00am atomoxetine 60 mg oral capsule (2 sources) Norepinephrine Reuptake Inhibitor Start: 10-28-2023 take 1 capsule by mouth once daily in the morning Strattera 60 mg Cap 60 mg = 1 cap(s), Oral, qAM, Refills(s) 0 Start Date: 10/28/23 Status: Ordered Start: 10-28-2023 take 1 capsule by mo ut once daily in the morning Strattera 40 [...] Daily, # 50 tab(s), Refills(s) 1, Pharmacy: [facility]5, 155, cm, 01/25/21 14:00:00 EDT, Height/Length [...] Pain, # 45 cap(s), Refills(s) 4, Pharmacy: [facility], 155, cm, 03/01/22 15:01:00 EDT, Height/Length [...] Refills(s) 0 Start Date: 10/28/23 Status: Ordered Norgestimate-Ethinyl Estradiol (1 source) Progestin, Estrogen Start: 05-06-2018 take 1 tablet by mouth at bedtime Norgestimate-Ethinyl Estradiol (Sprintec (28)) 0.25-35 mg-mcg Tablet Active 1 TAB PO Bedtime May 06, 2018 12:00am Nurtec ODT (5 sources) Start: 01-25-2021 take 75 mg by mouth once Nurtec ODT 75 mg, Oral, Once, Refills(s) 0 Start Date: 01/25/21 Status: Ordered Start: 01-25-2021 take 1 mg by mouth once Nurtec ODT mg, Oral, Once, Refills(s) 0 Start Date: 01/25/21 Status: Ordered omeprazole 20 mg delayed release oral capsule (1 source) Proton Pump Inhibitor Start: 05-06-2018 take 20 mg by mouth at bedtime Omeprazole Active 20 MG PO Bedtime May 06, 2018 12:00am ondansetron 4 mg disintegrating oral tablet (3 [...] tablet (7 sources) Proton Pump Inhibitor Start: take 20 mg by mouth once daily Protonix 20 mg, Oral, Daily, Refills(s) 0 Start Date: 09/15/20 Status: Ordered Start: 09-15-2020 Protonix Oral, Daily, Refills(s) 0 Start Date: 09/15/20 Status: [facility] (PROTONIX) 40 mg [...] Status: Ordered propranolol 120 mg oral tablet (8 sources) beta-Adrenergic Ron Start: 01-25-2021 take 120 mg by mouth once daily propranolol 120 mg, Oral, Daily, Refills(s) 0 Start Date: 01/25/21 Status: Ordered Start: 01-25-2021 propranolol Re fills(s) 0 Start Date: 01/25/21 Status: Ordered Start: 12-28-2020 take 1 capsule by mo [facility] once daily propranolol ER (INDERAL LA) 120 mg 24 hr capsule Take 120 mg by mouth once daily. 0 12/28/2020 Active Start: 05-06-2018 take 20 mg by mouth twice mayuri y Propranolol Active 20 MG PO Twice daily May 06, 2018 12:00am Comment on above: Take 120 mg by mouth once daily. tiZANidine 4 mg oral capsule (3 sources) Central alpha-2 Adrenergic Agonist Start: 04-27-2019 take 1 capsule by mouth three times daily as needed tizanidine 4 mg oral capsule 4 mg = 1 cap(s), Oral, TID, PRN Prophylaxis, Refills(s) 0 Start Date: 04/27/19 Status: Ordered Start: 05-06-2018 take 4 mg by mouth at bedtime Tizanidine Active 4 MG PO Bedtime May 06, 2018 12:00am topiramate 100 mg oral tablet (7 sources) Start: 04-27-2019 take 1 tablet by mouth twice daily topiramate 100 mg Tab 100 mg = 1 tab(s), Oral, BID, Refills(s) 0, Migraine headache Start Date: 04/27/19 Status: Ordered Start: 05-06-2018 take 50 mg by mouth at bedtime Topiramate Active 50 MG PO Bedtime May 06, 2018 12:00am Comment on above: Take 50 mg by mouth twice daily. traZODone hydrochloride 50 mg oral tablet (1 source) Serotonin Reuptake Inhibitor Start: take 1 tablet by mouth once daily at bedtime traZODONE 50 mg Tab 50 mg = 1 tab(s), Oral, Once a day (at bedtime), Refills(s) 0 Start Date: 10/28/23 Status: Ordered 24 hr venlafaxine 75 mg extended release oral capsule (1 source) Serotonin and Norepinephrine Reuptake Inhibitor Start: 018 take 75 mg by mouth once daily at bedtime Venlafaxine Active 75 MG PO Daily at bedtime May 06, 2018 12:00am Ventolin HFA 90 mcg/inh Aerosol (5 sources) Start: 019 take 2 puff(s) by inhalation four times daily Ventolin HFA 90 mcg/inh Aerosol 2 puff(s), Inhalation, QID Wheezing, Refill(s) 0 Start Date: 04/27/19 Status: Ordered verapamil hydrochloride 180 mg extended release oral tablet (7 sources) Calcium Channel Ron Start: take 1 tablet by mouth once daily [...] Active Comment on above: Take by mouth. amLODIPine 2.5 mg oral tablet (1 source) Dihydropyridine Calcium Channel Ron Start: 05-06-2018 End: 05-06-2018 Amlodipine Discontinued PO Bedtime May 06, 2018 12:00am May 06, 2018 2:40pm biotin 5 mg disintegrating oral tablet (2 [...] Comment on above: Take 1 capsule by [facility] three times daily for 14 days. Lactobacillus acidophilus (2 sources) Lactobacillus acidophilus (PROBIOTIC ORAL) Take by mouth. 0 Active Comment on above: Take by mouth. levonorgestrel 0.149951 mg/hr intrauterine system (1 source) Progestin, Progestin-containing [...] on above: Take 1,000 mcg by mo ut once daily. 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 CURRENT DRUG THERAPY] Onset: 2 Episodic Other [...] Test Name Value Interpretation Reference Range Facility Operative Reporton Operative Report [id number] [facility] Pathology Noteon 12-27-2023 Pathology Note [id number]#1.00TIFF [facility] Varun 12-25-2023 L Specimen: [id number] eceived: 12/25/23 Status: JEFFMario Mejia Num: [id number] Spec Type: Surgical Subm Dr: Zack Kaiser MD FACS Tissues: A Lipoma (LT BACK) Procedures: HE, Gross/Micro L3 Age/ Patient Sex Location Account Attending Physician Nica Escamilla 38/F LABELL [id number] Zack Kaiser MD FACS SPEC NUM: [id number] RECD: 12/25/23 STATUS: JEFFMario REQ NUM: [id number] JAVI: 12/25/[address]: Zack Kaiser MD FACS ENTERED: 12/25/23 [facility] DR: Yuriy Magana SPEC TYPE: Surgical DEPT: MJ THAO ORDERED: ZAINA Gross/Micro L3 ORDERED: ZAINA Gross/Micro L3 Pathological Diagnosis Lipoma, left back, excision: Mature fibrofatty tissue, consistent with lipoma. Gross Description In formalin labeled lipoma left back is a 4.3 x 2.4 x 1.4 cm piece of travis-pink lobular adipose tissue. The specimen is well circumscribed by thin transparent membrane. The outer surface is inked black. Cut surfaces demonstrate a homogeneous light yellow lobulated appearance with no obvious areas of hemorrhage or necrosis. Pantograph Ii Engraver sections are submitted A1. RG Clinical history: Lipoma, path pending CPT Codes 12060 -------- -------- Specimen: [id number] Received: 12/25/23 Status: LAITH Jackie Num: [id number] Spec Type: Surgical Subm Dr: Zack Kaiser MD FACS Tissues: A Lipoma (LT BACK) Procedures: ZAINA Gross/Micro L3 -------- Patient: Nica Escamilla [id number] (Continued) -------- Signed (signature on file) Darren Dias MD 12/26/23 1322 Normal [facility] Consent for Procedure/Surger yon 11-12-2023 Consent for Procedure/Surgery [id number]#[id number] Normal [facility] Consent for Procedure/Surgery [id number]#1.00TIFF [facility] Ambulatory Visit Summaryon 0 11-11-2023 Ambulatory Visit Summary ANDIKEMARLY Douglas :1985 Visit Date:11/11/2023 Ambulatory Visit Instructions Your Care Team Attending Physician - Zack KAISER MD Primary Care Physician - Vernon Castano [...] for choosing us for your care. Normal [facility] Physician Referralon 024 Physician Referral [id number]#[id number] Normal [facility] PREG HCG QUALon 04-20-2022 , QUAL Negative Normal NEGATIVE [facility] Comment on above: Performed By: #### P REG #### [facility] [address] [place] [address] Dr. Refugio Apple CNOVon 04-12-2022 CNOV Office Visit (PLASMN ) NICA ESCAMILLA ([id number]) 1985 F Date Time Provider Department 04/12/22 [...] d (more content not included)... Normal [facility] PREG HCG QUALon 04-06-2022 , QUAL Negative Normal NEGATIVE [facility] Comment on above: Performed By: #### P REG #### [facility] [address] [place] [address] Dr. Refugio Apple CHEMISTRYOrdered By: SYSTEM SYSTEM [...] CNOV Office Visit (GENSSM ) NICA ESCAMILLA ([id number]) 1985 F Date Time Provider Department 11/10/21 [...] mcg, Iron 45-60 mg and calcium citrate 0867-8770 mg/day PHYSICAL EXAMINATION: Weight loss: BMI 23.2 [...] Ena Murray MD Referring Provider: ENA MURRAY [[id number]] Allergies As of Date: 11/10/2021 Noted Allergy [...] (a (more content not included)... Normal [facility] MRI [facility] CSP INE WO [...] by: MANOHAR ALONZO Date: 2021-11-10 14:28 Normal [facility] 06-15-2021 [facility] Office Visit ([id number] ) NICA ESCAMILLA ([id number]) 1985 F Date Time Provider Department 06/15/21 11:30 AM ENA MURRAY [id number] During your visit today, we recorded the [...] call directly to schedule upper endoscopy at [phone]. Please leave a message if you receive the voicemail with your name, birthday, and reason for calling. Please expect a call or GameChanger Mediahart message with appointment information and instructions. What [...] is especially important if you have had fkjtg-vwtdqequn-naiad surgery in the past. How is an [...] for (more content not included)... Normal [facility] HISTORY PHYSICALon HISTORY PHYSICAL HNO ID: [id number] Author: Kalpana Otero MD Service: General Surgery [...] December 16, 2020 TIME: 9:33 AM Normal [facility] NURSING PROGon 12-16-2020 NURSING PROG HNO ID: [id number] Author: Yashira LauRn) DEEPTHI Nova Service: Nursing [...] PT EDon 12-16-2020 PT ED HNO ID: [id number] Author: Manohar (Rn) DEEPTHI Conn Service: Nursing Author Type: Registered Nurse Type: Patient Education Filed: 12/16/2020 11:03 AM Note Text: PATIENT EDUCATION TOPIC: PROCEDURE / SURGERY: Post Procedure Teaching: PATIENT NAME: Nica Escamilla PATIENT LOCATION: ENDO POOL/ ENDO POOL READINESS TO LEARN COGNITIVE ABILITY: [...] NURSING PROGon 10-25-2020 NURSING PROG HNO ID: [id number] Author: Diego Abad RN Service: ? Author Type: Registered Nurse Type: Nursing Progress Note Filed: 10/25/2020 2:09 AM Note Text: Nursing Progress Note Patient Name: Nica Escamilla Patient [facility] [id number] Daily Note: 1999: Assessment complete see NPR. Pt present w/ [...] CAREon 10-25-2020 PLAN OF CARE HNO ID: [id number] Author: Davina Bonilla (Precision Biopsy) Service: Pharmacy Author Type: ? Type: Plan of Care Filed: 10/25/2020 2:56 PM Note Text: Pharmacy Discharge Medication Service: This patient has elected to receive their discharge prescriptions through the [facility] Bedside Prescription Delivery program. The prescriptions are currently being processed. A follow-up note will be entered once the prescriptions have been filled and delivered to the patient. Please contact me with any questions or updates to the patient's discharge medications. Davina Bonilla (Precision Biopsy) DCT Contact Info: [id number] [facility] PLAN OF CARE HNO ID: [id number] Author: Davina Bonilla (Precision Biopsy) Service: Pharmacy Author Type: ? 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 Patient to use [facility] Bedside Delivery - YES Insurance Information as follows: 2. Insurance card on file - YES 3. Credit card for payment - N/A [facility] PLAN OF CARE HNO ID: [id number] Author: Davina Bonilla (Precision Biopsy) Service: Pharmacy Author Type: ? Type: Plan [...] or your Primary Care Provider. Davina Bonilla (Planting Material Carrier) PAGER: [phone] October 25, 2020 2:56 PM [facility] PROGRESSon 10-25-2020 PROGRESS HNO ID: [id number] Author: Presley Torrez Service: General Surgery Author [...] Murray SIGNATURE: Presley Torrez MD PATIENT NAME: Ncia Escamilla DATE: October 25, 2020 TIME: 7:02 AM Normal [facility] PROGRESS HNO ID: [id number] Author: Juliet Lilly Service: General Surgery Author [...] PT EDon 10-25-2020 PT ED HNO ID: [id number] Author: Geoff Hector Service: Nutrition Therapy Author Type: Pediatric Nurse Type: Patient Education Filed: 10/25/2020 12:04 PM [...] SIGNATURE: GEOFF HECTOR DTR PATIENT NAME: Nica Escamilla DATE: October 25, 2020 TIME: 12:04 PM PAGER: [phone] [facility] ANES POSTPROC EVALon 021 ANES POSTPROC EVAL HNO ID: [id number] Author: Brandon Stoddard Service: Anesthesiology Author Type: [...] October 24, 2020 TIME: 4:58 PM CSN: [id number] [facility] ANES PRE-OPon 10-24-2020 ANES PRE-OP HNO ID: [id number] Author: Colin Archer Service: Anesthesiology Author Type: [...] October 24, 2020 TIME: 1:18 PM CSN: [id number] [facility] NURSING PROGon 10-24-2020 NURSING PROG HNO ID: [id number] Author: Sridevi Chapa) DEEPTHI Triana Service: Nursing Author Type: Registered Nurse Type: Nursing Progress Note Filed: 10/24/2020 6:56 PM Note Text: Nursing Progress Note Patient Name: Nica Escamilla Patient Location: [place] [address] Transfer Note: Patient transferred into room/unit PK325 in stable condition. Actions taken: No futher actions taken at this time. at bedside. Will continue to monitor and check with patient. This note was completed by: Sridevi Triana RN [facility] NURSING PROG HNO ID: [id number] Author: Gege (Rn) DEEPTHI Kenney Service: Nursing [...] None Electronically Signed By: Gege Kenney RN Normal [facility] OPERATIVE NOon 10-24-2020 OPERATIVE NO HNO ID: [id number] Author: Ena Murray Service: General Surgery Author Type: Physician Type: Operative Report Filed: 10/26/2020 11:07 AM Note Text: [facility] - Operative Report NICA ESCAMILLA : 1985 AGE: 35. SEX: F PATIENT TYPE: I [facility] ATTENDING PHYSICIAN: Ena Murray MD CSN NUMBER: [id number] DATE OF SURGERY/PROCEDURE: 10/24/2020 INCISION/PROCEDURE START TIME: 2:28 PM INCISION CLOSE/PROCEDURE END TIME: 4:31 PM PREOPERATIVE DIAGNOSIS: Morbid obesity, BMI of 42. POSTOPERATIVE DIAGNOSIS: 1. Morbid obesity. 2. Hiatal hernia. SURGEON: Ena Murray MD ROBOTIC TECHNICIAN: Presley Torrez MD. SURGERY/PROCEDURE: 1. Laparoscopic repair [...] The posterior cruroplasty was completed using 1 gkvbrg-nt-bakkx stitch using silk to tighten the sharri. [...] Torrez assisted in the absence of qualified regional vice president surgical sales help. He created the pouch and created the jejunojejunostomy. Ena Murray MD TA:[id number] Normal [facility] Confirm Blood Typeon 021 ABO/RH(D) Positive Normal [facility] Comment on above: Performed By: #### C ONABO ####[facility] [place], [place] [phone] HISTORY PHYSICALon HISTORY PHYSICAL HNO ID: [id number] Author: Amanda Shane (Pa) Service: ? Author Type: Physician Heating Element Builder Type: HANDP Filed: 10/17/2020 2:58 PM Note [...] fevers. Neuro: No history of TIA's, stroke, DRUPAL PROGRAMMER tumor, impaired sensorium, hemiplegia, paraplegia or quadraplegia. No neurological symptoms or problems. Respiratory: asthma, uses rescue about once every few weeks; no current resp sx. Had acute bronchitis last Fall, flared asthma for a while but is better now. Has environmental allergies Cardiovascular: No history of HTN requiring medication, no history of angina, CHF, [place], cardiac surgery or stents. Denies rest pain, gangrene or revascularization/amputation for PVD. No history of cardiovascular symptoms or problems. GI: Positive for GERD, no other GI sx. 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 I have also discussed medical [...] on recommendations of the Governor of the [facility]. Although we will perform appropriate precautions [...] patient. Ena Murray MD Previous Version Normal [facility] HEPATITIS B SURFACE AB IMMUN ITYAna 08-11-2020 HEPATITIS B SURFACE AB IMMUNITY, QN >1000 Normal > OR = 10 [facility] Comment on above: Result Comment: Patient has immunity to hepatitis B virus. For additional information, please refer to http://education.[employer]ets[employer].AudioSnaps/faq/QVJ890 (This link is being provided for informational/ educational purposes only). Performed By: #### 8 475 #### [facility] [address] [place] [address] Foundry Engineer: Sixto Chandler MD Vital Signs Date Time Vital Sign Value Performing Clinician Facility 10-16-2022 12:53-0500 Diastolic blood pressure 80 mm[Hg] Otis Marcin [facility] 10-16-2022 12:53-0500 Heart rate 55 /min Otis Marcin [facility] 10-16-2022 12:53-0500 Mean blood pressure 89 mm[Hg] Otis Marcin [facility] 10-16-2022 12:53-0500 Respiratory rate 18 /min Otis Marcin [facility] 10-16-2022 12:53-0500 Systolic blood pressure 108 mm[Hg] Otis Marcin [facility] 08-28-2022 08:52-0500 Heart rate 70 /min Otis Marcin [facility] 08-28-2022 08:52-0500 SaO2% (BldA) [Mass fraction] 100 % Otis Marcin [facility] 08-28-2022 08:52-0500 Respiratory rate 16 /min Otis Marcin [facility] 08-28-2022 08:52-0500 Diastolic blood pressure 80 mm[Hg] Otis Marcin [facility] 08-28-2022 08:52-0500 Mean blood pressure 93 mm[Hg] Otis Marcin [facility] 08-28-2022 08:52-0500 Systolic blood pressure 121 mm[Hg] Otis Marcin [facility] 08-28-2022 08:46-0500 Heart rate 70 /min Otis Marcin [facility] 08-28-2022 08:46-0500 SaO2% (BldA) [Mass fraction] 100 % Otis Marcin [facility] 08-28-2022 08:46-0500 Body temperature 97.52 [degF] Otis Marcin [facility] 08-28-2022 08:46-0500 Diastolic blood pressure 69 mm[Hg] Otis Marcin [facility] 08-28-2022 08:46-0500 Mean blood pressure 80 mm[Hg] Otis Marcin [facility] 08-28-2022 08:46-0500 Systolic blood pressure 104 mm[Hg] Otis Marcin [facility] 08-28-2022 08:46-0500 Respiratory rate 16 /min Otis Marcin [facility] 08-28-2022 08:41-0500 Diastolic blood pressure 64 mm[Hg] Otis Marcin [facility] 08-28-2022 08:41-0500 Systolic blood pressure 102 mm[Hg] Otis Marcin [facility] 08-28-2022 08:40-0500 Heart rate 71 /min Otis Marcin [facility] 08-28-2022 08:40-0500 Respiratory rate 12 /min tOis Burch [facility] 08-28-2022 08:40-0500 SaO2% (BldA) [Mass fraction] 100 % Otis Marcin [facility] 08-28-2022 08:35-0500 Respiratory rate 12 /min Otis Burch [facility] 08-28-2022 08:30-0500 Respiratory rate 12 /min Otis Marcin [facility] 08-28-2022 07:17-0500 Mean blood pressure 78 mm[Hg] Otis Burch [facility] 08-28-2022 07:17-0500 Respiratory rate 16 /min Otis Burch [facility] 08-28-2022 07:17-0500 Body temperature 98.24 [degF] Otis Burch [facility] 04-12-2022 14:47-0400 Body height 152.4 cm Lazara Vogel MD Work Phone: [facility] 04-12-2022 14:47-0400 Body temperature 98.91 [degF] Lazara Vogel MD Work Phone: [facility] 04-12-2022 14:47-0400 Body weight 55.52 kg Lazara Vogel MD Work Phone: [facility] 04-12-2022 14:47-0400 Diastolic blood pressure 92 mm[Hg] Lazara Vogel MD Work Phone: [facility] 04-12-2022 14:47-0400 Heart rate 65 /min Lazara Vogel MD Work Phone: [facility] 04-12-2022 14:47-0400 Systolic blood pressure 140 mm[Hg] Lazara Vogel MD Work Phone: [facility] 03-01-2022 14:59-0400 Diastolic blood pressure 86 mm[Hg] Mixon SALAM [facility] 03-01-2022 14:59-0400 Heart rate 52 /min Mixon SALAM [facility] 03-01-2022 14:59-0400 Systolic blood pressure 130 mm[Hg] Mixon SALAM [facility] Encounters Encounter Date Encounter Type Care Provider Facility Start: 01-07-2024 ambulatory Zack R NILL Facility : [place] Start: 01-03-2024 ambulatory Zack GARVINL Facility: [facility] [place] Start: 12-25-2023 End: 12-25-2023 ambulatory Zack R Fawnl Facility:[facility] Start: 12-25-2023 End: 12-26-2023 ambulatory Zack R NILL [facility] Work Phone: Start: 12-25-2023 End: 12-25-2023 Departed Harsha Kaiser Work Phone: [facility] Start: 12-16-2023 End: 12-17-2023 ambulatory Aaliyah Hampton MD Facility:[facility] [place] Start: 12-02-2023 End: 12-03-2023 ambulatory Aaliyah Hampton MD Facility:[facility] [place] Start: 11-11-2023 End: 11-12-2023 ambulatory Zcak R NILL Facility: [place] Start: 11-11-2023 End: 11-26-2023 Pre-admission assessment Zack KAISER [facility] Start: 11-04-2023 End: 11-05-2023 ambulatory Aaliyah Hampton MD Facility: [place] Start: 10-21-2023 ambulatory Zack KAISER Facility:[facility] Start: 09-30-2023 End: 10-01-2023 ambulatory [facility] Start: 04-29-2023 End: 04-30-2023 ambulatory Andwendy Hampton MD Facility: [place] Start: 04-15-2023 End: 04-16-2023 ambulatory Aaliyah Hampton MD Facility: [place] Start: 04-01-2023 End: 04-02-2023 ambulatory Aaliyah Vinsonitis Facility:[facility] Start: 03-25-2023 End: 03-26-2023 ambulatory Aaliyah Hampton MD Facility:[facility] Start: 10-16-2022 End: 10-16-2022 Pain Management Otis Burch [facility] Start: 08-28-2022 End: 08-28-2022 Pain Management Otis Burch [facility] Start: 05-04-2022 End: 05-05-[address] DOCTOR [...] End: 03-01-2022 Patient encounter procedure Oral DIETZ [facility] Start: 11-10-2021 End: 11-11-2021 ambulatory PETEY HORTENCIA Facility:[facility]1 Start: 05-24-2021 End: 06-28-[address] DOCTOR BEAR Facility:[facility] Procedures Date Procedure Procedure Detail Performing Clinician Start: 08-28-2022 Radiofrequency ablation of medial branch of lumbar nerve using fluoroscopic guidance Otis Burch Comment on above: L4/5 +L5/S1 40-50% relief Start: 10-17-2020 Antibody screen Comment on above: Performed By: #### [id number] ####[place] [facility] [id number] [place] [id number] Start: 05-09-2020 Adult depression screening assessment Lazara Vogel MD Work Phone: Start: 04-18-2020 Colonoscopy Oral DIETZ Start: 04-18-2020 Esophagogastroduodenoscopy Oral DIETZ section Oral DIETZ section Zack Albarado Cholecystectomy Oral DIETZ Fasciotomy of foot Zack HOFFMAN Trevor-en-Y gastrojejunostomy Zack [facility] Plan of Treatment Date Care Activity Detail Author Start: 05-17-2022 Influenza vaccination INFLUENZA (#1) [facility] Start: 05-09-2021 Adult depression screening assessment DEPRESSION SCREENING [facility] Start: 04-10-2021 COVID-19 VACCINE (3 - Booster for Moderna series) COVID-19 VACCINE (3 - Booster for Moderna series) [facility] Start: 2013 HPV TESTING HPV TESTING [facility] Start: 02-22-2004 PAP TESTING PAP TESTING [facility] Start: 2002 Urine microalbumin profile DTAP,TDAP,TD (1 - Tdap) [facility] Start: 2001 ANNUAL PCP TEAM CLOTH TESTER QUALITY 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 VISIT ANNUAL PCP TEAM CHRONIC DISEASE VISIT [facility] Start: 2001 BP CONTROLLED (<130/80) BP CONTROLLE D (<130/80) [facility] Start: 2001 HEPATITIS C SCREENING HEPATITIS C SC REENING [facility] Start: 2001 HIV SCREENING HIV SCREENING [facility] Start: 2001 SPIROMETRY SPIROMETRY [facility] Start: 1989 PNEUMOCOCCAL (1 - PCV) PNEUMOCOCCAL (1 - PCV) [facility] Immunizations Immunization Date Immunization Notes Care Provider Fa cility 11-11-2020 SARS-CoV-2 (COVID-19 ) mRNA-1273 vaccine Zack [facility] Comment on above: Result Comment: 2023: TPV20 09-28-2020 COVID-19 vaccine, fu ll dose (MODERNA) Lazara Vogel MD Work Phone: [facility] Comment on above: Result Comment: 2023: TPV20 07-01-2020 influenza, injectabl e, quadrivalent, preservative free Lazara Vogel MD Work Phone: [facility] 06-17-2020 influenza virus vaccine, unspecified formulation Lazara Vogel MD Work Phone: [facility] NEGATED: Highlighted row has not occurred!11-11-2023 influenza virus vaccine, unspecified formulation Zack [facility] Payers Date Payer Category Payer Self-pay [id number] 2022 Medicaid [id number] 2022 Private Health Insurance 2022 Unknown 2022 Unknown [id number] 2018 Medicaid [facility] MEDICA[facility] MEDICAID [id number] 2018-Present [phone] [address] [place] [address] Medicaid [id number] 1983 Unknown [id number] 2.840.1.856384.3.579.2. 593 1983 Unknown [id number] 2.840.1.133287.3.579.2. 593 1983 Unknown [id number] 2.840.1.991745.3.579.2. 593 1983 Unknown [id number] 2.840.1.116529.3.579.2. 593 1983 Unknown [id number] 2.840.1.233466.3.579.2. 593 1983 Unknown [id number] 2.840.1.211793.3.579.2. 593 1983 Unknown [id number] 2.840.1.363548.3.579.2. 593 1983 Unknown [id number] 2.840.1.990760.3.579.2. 196 1983 Unknown [id number] 840.1.503631.3.579.2. 196 1983 Unknown [id number] 2.840.1.533029.3.579.2. 196 1983 Unknown [id number] 2840.1.535396.3.579.2. 196 1983 Unknown [id number] 2840.1.409262.3.579.2. 196 1983 Unknown [id number] 2.16.840.1.916050.3.579.2. 196 1983 Unknown [id number] 2.16.840.1.609772.3.579.2. 196 1983 Unknown [id number] 2.16.840.1.778295.3.579.2. 196 1983 Unknown [id number] 2.16.840.1.338213.3.579.2. 727 1983 Unknown [id number] 2.16.840.1.316504.3.579.2. 727 1983 Unknown [id number] 2.16.840.1.554248.3.579.2. 727 1959 Unknown [id number] Unknown [id number] 2.16.840.1.961370.3.579.2. 531 Social History Date Type Detail Facility Start: 03-01-2022 End: 11-11-2023 Tobacco smoking status Never smoked tobacco (finding) [facility] Tobacco smoking status Never [facility] Sex Assigned At Female [facility] Start: 06-27-2017 Tobacco use and exposure Smokeless tobacco non-user [facility] Start: 04-12-2022 Alcohol intake Current drinke r of alcohol (finding) [facility] Start: 04-12-2022 Alcohol intake [facility] Start: 01-05-2020 History SDOH Alcohol Frequency 3 [facility] Start: 01-05-2020 History SDOH Alcohol Std Drinks 1 [facility] Start: 10-17-2020 History SDOH Alcohol Comment once a month, 1 drink [facility] Start: 1985 Sex Assigned At Not on file C [facility] Start: 04-01-2022 End: 04-11-2022 Exposure to SARS-CoV-2 (event) Not sure [facility] Start: 1985 Sex Assigned At Female F [facility] Functional Status Date Assessment Result Facility 10-16-2022 Functional Status N/A [facility] 08-28-2022 Functional Status N/A [facility] Clinical Notes 05-04-2020 to 11-11-2023 Note [...] Brother. Colon ca (more content not included)... [facility] Comment on above: Result Comment: [...] concerns. Patient agrees with plan of care. [facility]07-28-2022 NoteHNO ID: [id number] Author: ST Rick Service: ? Author Type: Transport Assistant Type: Progress Notes Filed: 04/12/2022 3:50 PM Note Text: DATE OF PHOTOS: 04/12/2022 Body Part: Breasts, Abdomen, Leg(s) and Arms [facility] 12, 2022 3[facility] History of Present illness Narrative* [facility] Rick - 04/12/2022 3:49 PM EDT DATE OF PHOTOS: 04/12/2022 Body Part: Breasts, Abdomen, Leg(s) and Arms [facility] Rick April 12, 2022 3:49 PM [facility] NoteHNO ID: [id number] Author: Lazara Vogel MD Service: ? Author [...] visit. ALLERGIES A (more content not included)...[facility]07-27-2022 History of Present illness Narrative* Lazara [...] Past Histories independently gathered by the clinical operations support coordinator and the remaining scribed note accurately describes [...] weeks. Lazara Vogel MD [facility] Evaluation + Plan note Diagnostic [...] Level 04/25/21 * Vitamin B12 Level 04/25/21 [facility]02-25-2022 NoteHNO ID: [id number] Author: Ena Murray MD Service: ? Author [...] mcg, Iron 45-60 mg and calcium citrate 3954-0220 mg/day PHYSICAL EXAMINATION: Weight loss: BMI 23.2 [...] ? Doing great ? EGD Ena Murray [facility]09-30-2021 NoteHNO ID: [id number] Author: Ena Murray MD Service: ? Author [...] mcg, Iron 45-60 mg and calcium citrate 4206-5851 mg/day ? COMPLETE REVIEW OF SYSTEMS Constitutional--Negative [...] which included preparing to see the patient, [id number] patient care and completing clinical documentation.[facility]08-10-2021 Evaluation + Plan note Future Scheduled Tests Laboratory* Copper Level 04/25/21 * Zinc Level 04/25/21 * Vitamin A Level 04/25/21 * Vitamin B1 04/25/21 * Vitamin B6 Lvl 04/25/21 * Vitamin D 25 Hydroxy 04/25/21 * Ferritin 04/25/21 * Folate Level 04/25/21 * Iron Level 04/25/21 * Magnesium Level 04/25/21 * Vitamin B12 Level 04/25/21 [facility] 08-19-2020 History of Past illness Narrative* Problem Noted Date Resolved Date Morbid obesity 05/04/2020 01/23/2021 documented as of this encounter (statuses as of 04/12/2022) [facility]08-19-2020 History of Past illness Narrative* Problem Noted Date Resolved Date Morbid obesity 05/04/2020 01/23/2021 documented as of this encounter (statuses as of 04/12/2022) [facility] Future Appointments Appointment Date:09/24/2022 10:30:00 AM Scheduled Provider:Sridevi Goetz PA-C Location:[facility] [place] App[facility]ment Type[facility] Hx of [facility]ric surgery- Primary Bariatric surgery status Excess skin documented in this encounter [facility] noteNo assessment information availableAcmc [facility] Work Phone: Hospital course Narrative No data available for this section [facility] Hospital Discharge instructions No data available for this section [facility] Progress note No data available for this section [facility] Summary Purpose Family History No Family History Records FoundNo Family History Records FoundNo Family History Records FoundNo Family History Records FoundNo Family History Records Found No data available for this section No Family History Records FoundNo Family History Records FoundNo Family History Records Found Advance Directives No Advanced Directives Records FoundDocuments on File Type Date Recorded Patient Pantograph Ii Engraver Expl anation Advance Directive(s) 12/16/2020 8:43 AM Advance Directive(s) 12/15/2020 1:00 PM Advance Directive(s) 10/24/2020 10:04 AM Advance Directive(s) 10/04/2020 4:19 PM Advance Directive Response Recorded Date/ Time Advance Directives No April 30, 2018 4:07pm Hospital Course Note HNO ID: [id number] Author: Douglas Torrez Service: General Surgery Author [...] (more content not included)... Note HNO ID: [id number] Author: Devonte Zurita Service: Anesthesiology Author Type: Nurse Food Safety Field Specialist Type: Anesthesia Procedure Notes Filed: 10/24/2020 2:25 PM Note Text: ANESTHESIOLOGY PROCEDURE NOTE Airway General Information Procedure Start Time/Medication Administration: 10/24/2020 2:14 PM Patient location during procedure: OR Timeout Performed Pre-procedure: timeout performed Patient identity confirmed: arm band, care automobile washer steam and patient Staffing Anesthesiologist: Brandon Stoddard EXECUTIVE KITCHEN MANAGER: Pallavi Zurita Performed by: SHAVON Indications and [...] (more content not included)... Note HNO ID: [id number] Author: Devonte Zurita Service: Anesthesiology Author Type: Nurse Food Safety Field Specialist Type: Anesthesia Procedure Notes Filed: 10/24/2020 2:26 [...] October 24, 2020 TIME: 2:26 PM CSN: [id number] Note HNO ID: [id number] Author: Douglas Torrez Service: General Surgery Author Type: Physician Type: Brief Op Note Filed: 10/24/2020 4:36 PM Note Text: BRIEF OPERATIVE NOTE [facility] LOG ID: [id number] SURGERY/PROCEDURE DATE: 10/24/2020 INCISION/PROCEDURE START TIME: 2:28 PM INCISION CLOSE/PROCEDURE END TIME: 4:31 PM SURGEON(S) AND ROBOTIC TECHNICIAN(S): Surgeon(s) and Role: * Ena Murray - Primary * Jarad Clarke (Res) DO Steven - Resident - Assisting * Presley Torrez - Resident - Assisting No Additional Staff PROCEDURES AND ANESTHESIA: Procedure(s) and Anesthesia Type: * LAPAROSCOPIC GASTRIC RESTRICTIVE SURG W/ BYPASS AND TREVOR-EN-Y Procedure Findings Note HNO ID: [id number] Author: Devonte Zurita Service: Anesthesiology Author Type: Nurse Food Safety Field Specialist Type: Anesthesia Procedure Notes Filed: 10/24/2020 2:25 PM Note Text: ANESTHESIOLOGY PROCEDURE NOTE Airway General Information Procedure Start Time/Medication Administration: 10/24/2020 2:14 PM Patient location during procedure: OR Timeout Performed Pre-procedure: timeout performed Patient identity confirmed: arm band, care automobile washer steam and patient Staffing Anesthesiologist: Brandon Stoddard EXECUTIVE KITCHEN MANAGER: Pallavi Zurita Performed by: SHAVON Indications and [...] (more content not included)... Note HNO ID: [id number] Author: Devonte Zurita Service: Anesthesiology Author Type: Nurse Food Safety Field Specialist Type: Anesthesia Procedure Notes Filed: 10/24/2020 2:26 [...] October 24, 2020 TIME: 2:26 PM CSN: [id number] Note HNO ID: [id number] Author: Douglas Torrez Service: General Surgery Author Type: Physician Type: Brief Op Note Filed: 10/24/2020 4:36 PM Note Text: BRIEF OPERATIVE NOTE [facility] LOG ID: [id number] SURGERY/PROCEDURE DATE: 10/24/2020 INCISION/PROCEDURE START TIME: 2:28 PM INCISION CLOSE/PROCEDURE END TIME: 4:31 PM SURGEON(S) AND ROBOTIC TECHNICIAN(S): Surgeon(s) and Role: * Ena Murray - [...] DATE CREATED AUTHOR AUTHOR'S ORGANIZ ATION 10/18/2020 [facility] DATE CREATED AUTHOR AUTHOR'S ORGANIZ ATION 12/17/2020 [facility] DATE CREATED AUTHOR AUTHOR'S ORGANIZ ATION 04/16/2022 [facility] DATE CREATED AUTHOR AUTHOR'S ORGANIZ ATION 05/10/2022 [facility] DATE CREATED AUTHOR AUTHOR'S ORGANIZ ATION 12/24/2023 [facility] DATE CREATED AUTHOR AUTHOR'S ORGANIZ ATION 12/26/2023 [facility] DATE CREATED AUTHOR AUTHOR'S ORGANIZ ATION 01/05/2024 [facility] Care Team (unrecognized sect ion and content) Ict Teacher Relationship Specialty Start Date End Date Vernon Castano III, DO [address] [place] [address] PCP - General Family Practice 10/04/20 Ict Teacher Relationship Specialty Start Date End Date Vernon Castano III, DO [address] [place] [address] [phone] (work) PCP - General Family Practice 10/04/20 Team Status: Inactive Member Role Status Dates Zakc Kaiser MD FACS Attending Provider Active Start: December 25, 2023 End: December 25, 2023 Source Comments (unrecognize d section and content) In the event this informatio n is protected by the Federal Confidentiality of Alcohol and Drug Abuse Patient Records regulations: The Federal rules restrict any use of the information to criminally investigate or prosecute any alcohol or drug abuse patient.[facility] the event this information is protected by the Federal Confidentiality of Alcohol and Drug Abuse Patient Records regulations: The Federal rules restrict any use of the information to criminally investigate or prosecute any alcohol or drug abuse patient.[facility] Reason for Visit (unrecogniz ed section and content) Reason Comments PHOTOS TAKEN Reason Comments Consult Goals (unrecognized section and content) Goals may be documented in a n alternate section FOR RECORDS PERTAINING TO PATIENTS WHO ARE [...] BE BASED ON THE PRIMARY CLINICAL RECORDS. [employer] [facility]. provides no warranty or guarantee of the accuracy or completeness of information in this document.
[2024-01-06 08:47] VITALS: BP 121/79; PULSE 80; TEMP 36.6; O2SAT 100
[2024-01-06 08:51] LABS: HCG Qualitative NEGATIVE (NEGATIVE)
[2024-01-06 09:36] VITALS: BP 123/67; PULSE 65; O2SAT 99
[2024-01-06 09:41] VITALS: BP 123/70; PULSE 63; O2SAT 96
--- NOTE | 2024-01-06 09:42 | W.PM.PROCNOT ---
Date of procedure: 01/06/24 Pre-op diagnosis: Lumbar stenosis with neurogenic claudication Post-op diagnosis: same as pre-op Procedure: Procedure: Bilateral L5-S1 transforaminal epidural steroid injection Medications: Bupivacaine 0.25% 2cc, lidocaine 2% 1cc, kenalog 80mg The patient was seen and examined in the preoperative holding area.? Informed consent was obtained and placed on the chart.? Patient was brought to the medical procedure unit and placed in the prone position where a timeout was completed verifying the correct patient, procedure site, position, and planned special equipment using sterile aseptic technique.? Under direct fluoroscopic visualization a 25-gauge Quincke tipped spinal needle was advanced at level left L5-S1 to the designated neural foramen where contrast dye was injected to show adequate spread.? There was no evidence of vascular or adverse uptake.? Epidural spread was appreciated.? The above-mentioned injectate was then placed in a 1.5 mL aliquot preceded by negative aspiration.? The needle was removed. The same procedure, at the same level, was completed on the opposite side. ? Patient was taken to the postprocedural recovery area and monitored for an appropriate length of time before found suitable for discharge in the accompaniment of a responsible adult. Anesthesia: Local Surgeon: Aaliyah Hampton Pathology: none sent Condition: stable Disposition: no change
[2024-01-06] MEDS: 0.9 % SODIUM CHLORIDE 10 ML SYRINGE - SALINE FLUSH INJ (09:43)
[2024-01-06] MEDS: IOHEXOL 240 MG/ML - 10 ML VIAL 24 MG INJ (09:43)
[2024-01-06] MEDS: LIDOCAINE HCL 2% PF 100 MG/5 ML VIAL 2 ML INJ (09:43)
[2024-01-06] MEDS: BUPIVACAINE HCL 0.25% PF 25 MG/10 ML VIAL INJ (09:43)
[2024-01-06] MEDS: TRIAMCINOLONE ACETONIDE 40 MG/ML VIAL 80 MG INJ (09:44)
== END 2024-01-06 09:46 | disposition home or self-care (01) ==
LOC: SURGOUT 08:07
PROVIDERS: PCP Physician Assistant; Visit Provider Anesthesiology
DX: M48.062 Spinal stenosis, lumbar region with neurogenic claudication (principal)
CPT/HCPCS: 36415; 64483; 84703; Q9966

== ENCOUNTER 2024-01-20 07:24 | Day surgery (SDC) | payer OTHER, SELFPAY ==
--- OUTSIDE RECORDS SUMMARY | 2024-01-20 07:29 | XMS_ITS | CCD ---
Author Organization [facility] Care Team Providers Care Boxer Operator Name Role Phone Vernon Castano III Primary Care Physician [phone] Eyad ROSAS DO, Rolland R Primary Care [...] Primary Care Unavailable HORTENCIA, PETEY Consulting Unavailable MD Zack Kaiser Attending Provider Zack Kaiser Attending Unavailable Zack Kaiser Admitting Unavailable NILZack Albarado Attending Unavailable Vernon Castano Referring Unavailable Zack KAISER Attending Unavailable Zack KAISER Attending Unavailable Berta KOENIG, Aaliyah Arellano Attending Unavailable Berta KOENIG, Aaliyah Arellano Attending Unavailable Berta KOENIG, Aaliyah Arellano Attending Unavailable Giedraitis , Aaliyah Arellano Attending Unavailable Giedraitis , Andwendy Arellano Attending Unavailable Giedraitis , Andwendy Arellano Attending Unavailable Giedraitis , Andwendy Arellano Attending Unavailable Giedraitis , Andwendy Arellano Attending Unavailable Giedraitis , Andwendy Arellano Attending Unavailable Allergies Allergy Classification Reported Allergen(s) Allergy Type Date of Onset Reaction(s) Facility (12 sources) Latex; Translations: [latex] Drug allergy 4 Cutaneous eruption (morphologic abnormality), Other: See Comments [facility] (15 sources) SUMAtriptan; Translations: [sumatriptan] Drug Allergy 7 Other: See Comments [facility] (1 source) Amitriptyline Drug Allergy [facility] (1 source) NSAIDs Drug allergy (disorder) [facility] (1 source) Plasmin Drug Allergy [facility] (3 sources) Adhesive bandage; Translations: [Adhesive Bandage] Propensity to adverse reactions to substance [facility] [place] (1 source) SUMAtriptan Drug Allergy 8 [facility] Repository Medications Current Medications Medication Drug Class(es) Dates Sig (Normalized) Sig (Original) amitriptyline hydrochloride 25 mg oral tablet (1 source) Tricyclic Antidepressant Start: 05-06-2018 take 25 mg by mouth once daily at bedtime Amitriptyline Active 25 MG PO Daily at bedtime May 06, 2018 12:00am atomoxetine 60 mg oral capsule (4 sources) Norepinephrine Reuptake Inhibitor Start: 10-28-2023 take 1 capsule by mouth once daily in the morning Strattera 60 mg Cap 60 mg = 1 cap(s), Oral, qAM, Refills(s) 0 Start Date: 10/28/23 Status: Ordered Start: 10-28-2023 take 1 capsule by mo uth once daily in the morning Strattera 40 mg Cap 40 mg = 1 cap(s), Oral, qAM, Refills(s) 0 Start Date: 10/28/23 Status: Ordered baclofen 10 mg oral tablet (4 sources) gamma-Aminobutyric Acid-ergic Agonist Start: 10-28-2023 take [...] Daily, # 50 tab(s), Refills(s) 1, Pharmacy: [facility], 155, cm, 01/25/21 14:00:00 EDT, Height/Length Dosing, 77.7, kg, 01/25/21 14:00:00 EDT, Weight Dosing Start Date: 01/25/21 Status: Ordered cariprazine 1.5 mg oral capsule (2 sources) Atypical Antipsychotic Start: 10-28-19 take 1 capsule by mouth once daily Vraylar 1.5 mg oral capsule 1.5 mg = 1 cap(s), Oral, Daily, Refills(s) 0 Start Date: 10/28/23 Status: Ordered dicyclomine hydrochloride 10 mg oral capsule (8 sources) Anticholinergic Start: 03-01-20 take 4 capsules by mouth four times daily as needed for pain Bentyl 10 mg Cap 40 mg, Oral, QID, PRN Pain, # 45 cap(s), Refills(s) 4, Pharmacy: [facility], 155, cm, 03/01/22 15:01:00 EDT, Height/Length Dosing, 54, kg, 03/01/22 15:01:00 EDT, Weight Dosing Start Date: 03/01/22 Status: Ordered dicyclomine HCl (BENTYL ORAL) Take by mouth. 0 Active Comment on above: Take by mouth. duloxetine 30 mg Cap-DR (2 sources) Start: 10-28-2023 take 1 capsule by mouth once daily duloxetine 30 mg Cap-DR 30 mg, Oral, Daily, Refills(s) 0 Start Date: 10/28/23 Status: Ordered duloxetine 60 mg Cap-DR (2 sources) Start: 10-28-2023 take 1 capsule by mouth once daily duloxetine 60 mg Cap-DR 60 mg, Oral, Daily, Refills(s) 0 Start Date: 10/28/23 Status: Ordered Norgestimate-Ethinyl Estradiol (1 source) Progestin, Estrogen Start: 05-06-2018 take 1 tablet by mouth at bedtime Norgestimate-Ethinyl Estradiol (Sprintec (28)) 0.25-35 mg-mcg Tablet Active 1 TAB PO Bedtime May 06, 2018 12:00am Nurtec ODT (6 sources) Start: 01-25-2021 take 75 mg by [...] 12:00am ondansetron 4 mg disintegrating oral tablet (4 sources) Serotonin-3 Receptor Antagonist Start: 10-28-2023 take [...] pantoprazole 20 mg delayed release oral tablet (8 sources) Proton Pump Inhibitor Start: take 20 mg by mouth once daily Protonix 20 mg, Oral, Daily, Refills(s) 0 Start Date: 09/15/20 Status: Ordered Start: 09-15-2020 Protonix Oral, Daily, Refills(s) 0 Start Date: 09/15/20 Status: [facility] pantoprazole [facility] (PROTONIX) 40 mg [...] Status: Ordered propranolol 120 mg oral tablet (9 sources) beta-Adrenergic Ron Start: 01-25-2021 take 120 mg by mouth once daily propranolol 120 mg, Oral, Daily, Refills(s) 0 Start Date: 01/25/21 Status: Ordered Start: 01-25-2021 propranolol Re fills(s) 0 Start Date: 01/25/21 Status: Ordered Start: 12-28-2020 take 1 capsule by mo [facility] once daily propranolol ER [...] daily. traZODone hydrochloride 50 mg oral tablet (2 sources) Serotonin Reuptake Inhibitor Start: take 1 tablet [...] 2018 12:00am Ventolin HFA 90 mcg/inh Aerosol (6 sources) Start: 019 take 2 puff(s) by inhalation four times daily Ventolin HFA 90 mcg/inh Aerosol 2 puff(s), Inhalation, QID Wheezing, Refill(s) 0 Start Date: 04/27/19 Status: Ordered verapamil hydrochloride 180 mg extended release oral tablet (8 sources) Calcium Channel Ron Start: take 1 [...] Comment on above: Take 1 capsule by [facility] three times daily for 14 days. Lactobacillus acidophilus (2 sources) Lactobacillus acidophilus (PROBIOTIC ORAL) Take by mouth. 0 Active Comment on above: Take by mouth. levonorgestrel 0.103118 mg/hr intrauterine system (2 sources) Progestin, Progestin-containing Intrauterine Device Start: 10-28-2023 Mirena [...] on above: Take 1,000 mcg by mo [facility] once daily. Problems Active Problems Problem Classification Problem Date Documented Da te Episodic/Chronic Abdominal pain (8 sources) Left sided abdominal pain; Translations: [Left lower quadrant pain] Onset: 7 11-07-2020 Episodic Anxiety disorders (2 sources) Anxiety 10-28-2023 Chronic Asthma (4 sources) Asthma; Translations: [Unspecified asthma, uncomplicated] 10-17-2020 Chronic Comment on above: Outside Source Comme nt: Overview: uses inhaler a few times a month Deficiency and other anemia (2 sources) Iron deficiency anemia; Translations: [Iron deficiency anemia, unspecified] 10-17-2020 Episodic Diabetes mellitus without complication (2 sources) Prediabetes 10-28-2023 Episodic Disorders of lipid metabolism (4 sources) Hyperlipidemia; Translations: [Hyperlipidemia, unspecified] 10-17-2020 Chronic Esophageal disorders (4 sources) Gastroesophageal reflux disease; Translations: [Gastro-esophageal reflux disease without esophagitis] 01-05-2020 Chronic Essential hypertension (4 sources) Hypertensive disorder; Translations: [Essential (primary) hypertension] 01-05-2020 Chronic Headache; including migraine (4 sources) Migraine; Translations: [Migraine, unspecified, not intractable, without status migrainosus] 01-05-2020 Chronic Mood disorders (2 sources) Depressive disorder 10-28-2023 Chronic Other aftercare (1 source) Other parts counterman (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 therapy; Translations: [OTH MUSIC EXECUTIVE CURRENT DRUG THERAPY] Onset: 2 Episodic Other and unspecified benign neoplasm (6 sources) Polyp of colon 05-19-2020 Episodic Other and unspecified benign neoplasm (2 sources) Lipoma of back 11-11-2023 Episodic Other and unspecified benign neoplasm (1 source) Lipoma of skin and subcutaneous tissue of trunk; Translations: [Benign lipomatous neoplasm of skin and subcutaneous tissue of trunk] Onset: 4 Episodic Other gastrointestinal disorders (7 sources) Chronic idiopathic constipation; Translations: [Chronic idiopathic constipation] Onset: 2 Chronic Other gastrointestinal disorders (1 source) Bariatric surgery status; Translations: [Bariatric surgery status] Onset: 2 Episodic Other gastrointestinal disorders (6 sources) Alteration in bowel elimination 01-25-2021 Episodic Other gastrointestinal disorders (6 sources) Constipation 11-07-2020 Episodic Other gastrointestinal disorders (6 sources) Heartburn 05-19-2020 Episodic Other gastrointestinal disorders (1 source) History of bariatric surgical procedure; Translations: [Bariatric surgery status] Episodic Other nervous system disorders (1 source) Other chronic pain; Translations: [OTHER CHRONIC PAIN] Onset: 2 Chronic Other nervous system disorders (1 source) Incoordination; Translations: [Other lack of coordination] Onset: 2 Episodic Other nervous system disorders (6 sources) Muscular incoordination 11-07-2020 Episodic Other nutritional; endocrine; and metabolic disorders (2 sources) Overweight 11-11-2023 Episodic Other nutritional; endocrine; and metabolic disorders (2 sources) Overweight in adulthood with body mass index of 25 or more but less than 30 11-11-2023 Episodic Other skin disorders (1 source) Skin finding; Translations: [Excessive and redundant skin and subcutaneous tissue] Episodic Residual codes; unclassified (2 sources) Obstructive sleep apnea syndrome; Translations: [Obstructive sleep apnea (adult) (pediatric)] 10-17-2020 Chronic Residual codes; unclassified (2 sources) Sleep apnea 10-28-2023 Chronic Residual codes; unclassified [...] stenosis, cervical region] Onset: 2 Episodic Unclassified (6 sources) History of bypass of stomach 02-22-2021 Unclassified (1 source) LOW BACK PAIN, UNSPECIFIED; Translations: [LOW BACK PAIN, UNSPECIFIED] Onset: 2 Unclassified (2 sources) Obstructive hydronephrosis Onset: 7 10-28-2023 Past or [...] Test Name Value Interpretation Reference Range Facility Ambulatory Visit Summaryon 0 01-07-2024 Ambulatory Visit Summary NICA ESCAMILLA :1985 Visit Date:01/07/2024 Ambulatory Visit Instructions Your Diagnosis Lipoma of back Your Care Team Attending Physician - Zack [...] (verapamil 180 mg ER Tab) Procedures Performed Excision of lipoma of back (12/25/2023), Radiofrequency ablation of medial branch of lumbar nerve using fluoroscopic guidance (08/28/2022), Colonoscopy (04/18/2020), Esophagogastroduodenoscopy (04/18/2020), Caesarean section, section, Cholecystectomy, Plantar fasciotomy, Trevor-en-y gastric bypass. What to do next You Need to Schedule the Following Appointments Follow Up with ANTONELLA KOENIG, MASTER Martinez When: Only if needed Where: [address] [place] [address]- Medications What How Much When Instructions Unchanged [...] Contact prescribing physician if questions or concerns Allergies Adhesive Bandage Imitrex (nausea) Latex (Rash) [...] you for choosing us for your care. [facility]ily[facility] General Surgery Office/Clini c Noteon 01-07-2024 General Surgery Office/Clinic Note Chief Complaint post operative follow up HPI Staff 13 day post operative follow up post excisional biopsy left mid back lipoma. Denies soreness, bleeding or drainage. History of Present Illness 2 weeks s/p excisional biopsy of left upper back lipoma; pathology consistent with lipoma; doing well, no pain, some itching; no drainage from incision. Review of Systems ROS - Provider Constitutional: no fever, no [...] and are negative or noncontributory. Physical Exam skin: incision healing well, no erythema or drainage, no ecchymosis; small scab medial incision. Assessment/Plan 1. Lipoma of back (D17.1: Benign lipomatous neoplasm of skin and subcutaneous tissue of trunk) doing well; keep incision clean and dry; call with problems/questions. Follow-up With When Contact Information ANTONELLA KOENIG, MASTER Martinez Only if needed [address] [place] [address]- Additional Instructions: Problem List/Past Medical History Ongoing Anxiety Asthma BMI 28.0-28.9,adult Chronic idiopathic constipation Colon polyps Constipation Depression Dyssynergia GERD (gastroesophageal reflux disease) Heartburn Hypertension Left sided abdominal pain Lipoma of back Migraines Obstructive hydronephrosis Overweight Prediabetes Pure hypercholesterolemia S/P gastric bypass Sleep apnea Historical Change in bowel habit Procedure/Surgical History Excision of lipoma of back (12/25/2023), Radiofrequency ablation of medial branch of lumbar [...] Use:., 11/11/2023 Family History Alcoholism: Brother. Colon cancer: Aunt and Grandparent. Depression: Brother. Hypertension: Father. Stroke: Father. Immunizations Vaccine Date Status Comments influenza virus vaccine, inactivated - Not Given Patient Refuses SARS-CoV-2 (COVID-19) mRNA-1273 vaccine 11/11/2020 Recorded 2023-10-28: TPV20 SARS-CoV-2 (COVID-19) mRNA-1273 vaccine 09/28/2020 Recorded 2023-10-28: TPV20 [facility] Comment on above: Result Comment: Elec tronically Signed By: ANTONELLA KOENIG, Zack Carson\Date and Time Signed: 01/07/24 16:13 EDT Operative Reporton 4 Operative Report [id number]#1.00TIFF Normal [facility] Pathology Noteon 12-27-2023 Pathology Note [id number]#1.00TIFF Normal [facility] Varun 12-25-2023 L Specimen: [id number] eceived: 12/25/23 Status: LAITH Mejia Num: [id number] Spec Type: Surgical Subm Dr: Zack Kaiser MD FACS Tissues: A Lipoma (LT BACK) Procedures: HE, Gross/Micro L3 Age/ Patient Sex Location Account Attending Physician Nica Escamilla 38/F LABELL [id number] Zack Kaiser MD FACS SPEC NUM: [id number] RECD: 12/25/23 STATUS: LAITH MEJIA NUM: [id number] JAVI: 12/25/[address]: Zack Kaiser MD FACS ENTERED: 12/25/[address]: Yuriy Magana SPEC TYPE: Surgical DEPT: MJ THAO ORDERED: HE, Gross/Micro L3 ORDERED: HE, Gross/Micro L3 Pathological Diagnosis Lipoma, left back, [...] no obvious areas of hemorrhage or necrosis. Call Center Assistant sections are submitted A1. RG Clinical history: Lipoma, path pending CPT Codes 04002 -------- -------- Specimen: [id number] Received: 12/25/23135 Status: LAITH Mejia Num: [id number] Spec Type: Surgical Subm Dr: Zack Kaiser MD FACS Tissues: A Lipoma (LT BACK) Procedures: Eric MAHAJAN/Margy L3 -------- Patient: Nica Escamilla [id number] (Continued) -------- Signed (signature on file) Darren Dias MD 12/26/23 1322 Normal [facility] Consent for Procedure/Surger yon 11-12-2023 Consent for Procedure/Surgery [id number]#1.00TIFF Normal [facility] Consent for Procedure/Surgery [id number]#1.00TIFF Normal [facility] Ambulatory Visit Summaryon 0 11-11-2023 Ambulatory Visit [...] for choosing us for your care. Normal [facility] Physician Referralon 024 Physician Referral [id number]#[id number] Normal [facility] PREG HCG QUALon 04-20-2022 , QUAL Negative Normal NEGATIVE [facility] [place] [facility] Comment on above: Performed By: #### P REG #### [facility] [address] [address] [address] Refugio Madrigal 04-12-2022 LILOOV Office Visit (PLASMN ) NICA ESCAMILLA ([id number]) 1985 F Date Time Provider Department 04/12/22 [...] times d (more content not included)... Normal [facility] PREG HCG QUALon 04-06-2022 , QUAL Negative Normal NEGATIVE [facility] [place] [facility] Comment on above: Performed By: #### P REG #### [facility] [address] [place] [address] Dr. Refugio Apple CHEMISTRYOrdered By: SYSTEM SYSTEM [...] [Mass/Vol] ng/mL Normal >=6.7ng/mL [facility] Re misol Rohan 11-10-2021 CNOV Office Visit (GENSSM ) NICA ESCAMILLA ([id number]) 1985 F Date Time Provider Department 11/10/21 [...] mcg, Iron 45-60 mg and calcium citrate 9080-3833 mg/day PHYSICAL EXAMINATION: Weight loss: BMI 23.2 [...] Ena Murray MD Referring Provider: ENA MURRAY [[id number]] Allergies As of Date: 11/10/2021 Noted Allergy [...] JUANITA (a (more content not included)... Normal [facility] MRI CSPINE WO CONon 11-10-19 MRI CSPINE WO CON EXAMINATION: MRI CSP INE WO [...] by: MANOHAR ALONZO Date: 2021-11-10 14:28 [facility] Office Visit ([id number] ) NICA ESCAMILLA ([id number]) 1985 F Date Time Provider Department 06/15/21 11:30 AM ENA MURRAY [id number] During your visit today, we recorded the [...] call directly to schedule upper endoscopy at [phone]. Please leave a message if you receive [...] is especially important if you have had gvkvx-klvexjewo-tzxrb surgery in the past. How is an [...] minutes for (more content not included)... Normal [facility] HISTORY PHYSICALon HISTORY PHYSICAL HNO ID: [id number] Author: Kalpana Otero MD Service: General Surgery [...] DATE: December 16, 2020 TIME: 9:33 AM [facility] NURSING PROGon 12-16-2020 NURSING PROG HNO ID: [id number] Author: Yashira LauRn) DEEPTHI Nova Service: Nursing [...] None Electronically Signed By: Yashira Nova RN [facility] PT EDon 12-16-2020 PT ED HNO ID: [id number] Author: Manohar LauRn) DEEPTHI Conn Service: Nursing [...] None Electronically Signed By: Manohar Conn RN [facility] NURSING PROGon 10-25-2020 NURSING PROG HNO ID: [id number] Author: Diego Abad RN Service: ? Author Type: Registered Nurse Type: Nursing Progress Note Filed: 10/25/2020 2:09 AM Note Text: Nursing Progress Note Patient Name: Nica Escamilla [address] [id number] Daily Note: 2000: Assessment complete see NPR. Pt present w/ nausea Zofran given. Pain 8/10 PRN pain med given. 0100: Nausea concerned by pt. Paged for second like prevention. 0130: Compazine ordered/given. No cough or SOB at this time. Lap sites intact no bruising. No gas passed yet. This note was completed by: Diego Abad [facility] PLAN OF CAREon 10-25-2020 PLAN OF CARE HNO ID: [id number] Author: Davina Bonilla ([place]) Service: Pharmacy Author Type: ? Type: Plan of Care Filed: 10/25/2020 2:56 PM Note Text: Pharmacy Discharge Medication Service: This patient has elected to receive their discharge prescriptions through the [facility] Bedside Prescription Delivery program. The prescriptions are currently being processed. A follow-up note will be entered once the prescriptions have been filled and delivered to the patient. Please contact me with any questions or updates to the patient's discharge medications. Davina Bonilla ([place]) DCT Contact Info: [address] [facility] PLAN OF CARE HNO ID: [id number] Author: Davina Bonilla ([place]) Service: Pharmacy Author Type: ? Type: Plan of Care Filed: 10/25/2020 2:56 PM Note Text: [employer] BEDSIDE DELIVERY SURVEY 1. Patient to use [facility] Bedside Delivery - YES Insurance Information as follows: 2. Insurance card on file - YES 3. Credit card for payment - N/A [facility] PLAN OF CARE HNO ID: [id number] Author: Davina Bonilla ([place]) Service: Pharmacy Author Type: ? Type: Plan [...] or your Primary Care Provider. Davina Bonilla ([place]) PAGER: [phone] October 25, 2020 2:56 PM [facility] PROGRESSon 10-25-2020 PROGRESS HNO ID: [id number] Author: Presley Torrez Service: General Surgery Author [...] DATE: October 25, 2020 TIME: 7:02 AM [facility] PROGRESS HNO ID: [id number] Author: Juliet Lilly Service: General Surgery Author [...] care Juliet Lilly MD General Surgery PGY1 [facility] PT EDon 10-25-2020 PT ED HNO ID: [id number] Author: Geoff Hector Service: Nutrition Therapy Author Type: Nitriles Lab Technician Type: Patient Education Filed: 10/25/2020 12:04 [...] October 25, 2020 TIME: 12:04 PM PAGER: [phone] [facility] ANES POSTPROC EVALon 021 ANES POSTPROC EVAL HNO ID: [id number] Author: Brandon Stoddard Service: Anesthesiology Author Type: [...] October 24, 2020 TIME: 4:58 PM CSN: [id number] [facility] ANES PRE-OPon 10-24-2020 ANES PRE-OP HNO ID: [id number] Author: Colin Archer Service: Anesthesiology Author Type: [...] October 24, 2020 TIME: 1:18 PM CSN: [id number] [facility] NURSING PROGon 10-24-2020 NURSING PROG HNO ID: [id number] Author: Sridevi LauRn) DEEPTHI Triana Service: Nursing Author Type: Registered Nurse Type: Nursing Progress Note Filed: 10/24/2020 6:56 PM Note Text: Nursing Progress Note Patient Name: Nica Escamilla Patient Location: [place] [address] Transfer Note: Patient transferred into room/unit PK325 in stable condition. Actions taken: No futher actions taken at this time. at bedside. Will continue to monitor and check with patient. This note was completed by: Sridevi Triana RN [facility] NURSING PROG HNO ID: [id number] Author: Gege LauRn) DEEPTHI Kenney Service: Nursing Author Type: Registered Nurse Type: Nursing Progress Note Filed: 10/24/2020 1:38 PM Note Text: PATIENT EDUCATION TOPIC: PROCEDURE / SURGERY: Pre-op Teaching: Protocols PATIENT NAME: Nica Escamilla PATIENT LOCATION: OR ATTICA/ OR ATTICA READINESS TO LEARN COGNITIVE ABILITY: Alert and [...] None Electronically Signed By: Gege Kenney RN [facility] OPERATIVE NOon 10-24-2020 OPERATIVE NO HNO ID: [id number] Author: Ena Murray Service: General Surgery Author Type: Physician Type: Operative Report Filed: 10/26/2020 11:07 AM Note Text: [facility] - Operative Report NICA ESCAMILLA : 1985 AGE: 35. SEX: F PATIENT TYPE: I HOSP [facility]: [facility] LOCATION: [facility] ATTENDING PHYSICIAN: Ena Murray MD CSN NUMBER: [id number] DATE OF SURGERY/PROCEDURE: 10/24/2020 INCISION/PROCEDURE START TIME: 2:28 PM INCISION CLOSE/PROCEDURE END TIME: 4:31 PM PREOPERATIVE DIAGNOSIS: Morbid obesity, BMI of 42. POSTOPERATIVE DIAGNOSIS: 1. Morbid obesity. 2. Hiatal hernia. SURGEON: Ena Murrya MD CURB MACHINE OPERATOR: Presley Torrez MD. SURGERY/PROCEDURE: 1. Laparoscopic repair [...] The posterior cruroplasty was completed using 1 henfxy-kw-vcduz stitch using silk to tighten the sharri. [...] in the absence of qualified certified surgical tech/first assistant help. He created the pouch and created the jejunojejunostomy. Ena Murray MD TA:[id number] /[id number] Normal [facility] Confirm Blood Typeon 021 ABO/RH(D) Positive Normal [facility] Comment on above: Performed By: #### C ONABO ####[facility] [place], [place] [phone] HISTORY PHYSICALon HISTORY PHYSICAL HNO ID: [id number] Author: Amanda Shane (Pa) Service: ? Author Type: Physician Vice President Research Type: HANDP Filed: 10/17/2020 2:58 PM Note [...] fevers. Neuro: No history of TIA's, stroke, CERAMIC MOLD DESIGNER tumor, impaired sensorium, hemiplegia, paraplegia or quadraplegia. No neurological symptoms or problems. Respiratory: asthma, uses rescue about once every few weeks; no current resp sx. Had acute bronchitis last Fall, flared asthma for a while but is better now. Has environmental allergies Cardiovascular: No history of HTN requiring medication, no history of angina, CHF, ID, cardiac surgery or stents. Denies rest pain, gangrene or revascularization/amputation for PVD. No history of cardiovascular symptoms or problems. GI: Positive for GERD, no other GI sx. 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 Marcella Saldana RN Progress Notes ([address]): Ena Murray MD 10/13/2020 5:31 PM Signed SURGERY PREOPERATIVE VISIT NOTE Name: Nica Escamilla Medical Record: [id number] Encounter No.: [id number] Nica Escamilla is a 35 year old [...] regarding unsatisfactory weight loss as well as detention weight regain. I have also discussed medical [...] on recommendations of the Governor of the [facility]. Although we will perform appropriate precautions [...] patient. Ena Murray MD Previous Version Normal [facility] HEPATITIS B SURFACE AB IMMUN ITY, QNon 08-11-2020 HEPATITIS B SURFACE AB IMMUNITY, QN >1000 Normal > OR = 10 [facility] Comment on above: Result Comment: Patient has immunity to hepatitis B virus. For additional information, please refer to http://education.[employer]/faq/MKU903 (This link is being provided for informational/ educational purposes only). Performed By: #### [id number] #### [facility]-[address], [address] [place] [id number] Informatics Analyst: Sixto Chandler MD Vital Signs Date Time Vital Sign Value Performing Clinician Facility 10-16-2022 12:53-0500 Diastolic blood pressure 80 mm[Hg] Otis Burch [facility] 10-16-2022 12:53-0500 Heart rate 55 /min Otis Burch [facility] 10-16-2022 12:53-0500 Mean blood pressure 89 mm[Hg] Otis Burch [facility] 01-31-2023 12:53-0500 Respiratory rate 18 /min Oits Marcin [facility] 10-16-2022 12:53-0500 Systolic blood pressure 108 mm[Hg] Otis Marcin [facility] 08-28-2022 08:52-0500 Heart rate 70 /min Otis Marcin [facility] 08-28-2022 08:52-0500 SaO2% (BldA) [Mass fraction] 100 % Otis Marcin [facility] 08-28-2022 08:52-0500 Respiratory rate 16 /min Otis Marcin [facility] 08-28-2022 08:52-0500 Diastolic blood pressure 80 mm[Hg] Otis Marcin [facility] 08-28-2022 08:52-0500 Mean blood pressure 93 mm[Hg] Otis Marcin [facility] 08-28-2022 08:52-0500 Systolic blood pressure 121 mm[Hg] Otis Marcin [facility] 08-28-2022 08:46-0500 Heart rate 70 /min Otis Marcin [facility] 08-28-2022 08:46-0500 SaO2% (BldA) [Mass fraction] 100 % Otis Marcin [facility] 08-28-2022 08:46-0500 Body temperature 97.52 [degF] Otis Marcin [facility] 08-28-2022 08:46-0500 Diastolic blood pressure 69 mm[Hg] Otis Marcin [facility] 08-28-2022 08:46-0500 Mean blood pressure 80 mm[Hg] Otis Marcin [facility] 08-28-2022 08:46-0500 Systolic blood pressure 104 mm[Hg] Otis Marcin [facility] 08-28-2022 08:46-0500 Respiratory rate 16 /min Otis Marcin [facility] 08-28-2022 08:41-0500 Diastolic blood pressure 64 mm[Hg] Otis Marcin [facility] 08-28-2022 08:41-0500 Systolic blood pressure 102 mm[Hg] Otis Marcin [facility] 08-28-2022 08:40-0500 Heart rate 71 /min Otis Marcin [facility] 08-28-2022 08:40-0500 Respiratory rate 12 /min Otis Marcin [facility] 08-28-2022 08:40-0500 SaO2% (BldA) [Mass fraction] 100 % Otis Marcin [facility] 08-28-2022 08:35-0500 Respiratory rate 12 /min Otis Marcin [facility] 08-28-2022 08:30-0500 Respiratory rate 12 /min Otis Marcin [facility] 08-28-2022 07:17-0500 Mean blood pressure 78 mm[Hg] Otis Marcin [facility] 08-28-2022 07:17-0500 Respiratory rate 16 /min Otsi Marcin [facility] 08-28-2022 07:17-0500 Body temperature 98.24 [degF] Otis Marcin [facility] 04-12-2022 14:47-0400 Body height 152.4 cm Lazara Vogel MD Work Phone: [facility] 04-12-2022 14:47-0400 Body temperature 98.91 [degF] Lazara Vogel MD Work Phone: [facility] 04-12-2022 14:47-0400 Body weight 55.52 kg Lazara Vogel MD Work Phone: [facility] 04-12-2022 14:47-0400 Diastolic blood pressure 92 mm[Hg] Lazara Vogel MD Work Phone: [facility] 04-12-2022 14:47-0400 Heart rate 65 /min Lazara Vogel MD Work Phone: [facility] 04-12-2022 14:47-0400 Systolic blood pressure 140 mm[Hg] Lazara Vogel MD Work Phone: [facility] 03-01-2022 14:59-0400 Diastolic blood pressure 86 mm[Hg] Mixon SALAM [facility] 03-01-2022 14:59-0400 Heart rate 52 /min Mixon SALAM [facility] 03-01-2022 14:59-0400 Systolic blood pressure 130 mm[Hg] Mixon SALAM [facility] Encounters Encounter Date Encounter Type Care Provider Facility Start: 01-07-2024 End: 01-08-2024 ambulatory Zack KAISER Facility: [place] Start: 01-07-2024 End: 01-07-2024 Patient encounter procedure Zack KAISER [facility] [place] Start: 01-06-2024 End: 01-07-2024 ambulatory Aaliyah Hampton MD Facility:[facility] Start: 01-03-2024 ambulatory Zack KAISER Facility:[facility] Start: 12-25-2023 End: 12-25-2023 ambulatory Zack Kaiser Facility:[facility] Start: 12-25-2023 End: 12-26-2023 ambulatory Zack GARVINL [facility] Work Phone: Start: 12-25-2023 End: 12-25-2023 Departed Referred MD Zack Kaiser Work Phone: [facility] Start: 12-16-2023 End: 12-17-2023 ambulatory Aaliyah Hampton MD Facility:[facility] Start: 12-02-2023 End: 12-03-2023 ambulatory Aaliyah Hampton MD Facility:[facility] Start: 11-11-2023 End: 11-12-2023 ambulatory Zack KAISER Facility: [place] Start: 11-11-2023 End: 11-26-2023 Pre-admission assessment Zack KAISER [facility] Start: 11-04-2023 End: 11-05-2023 ambulatory Aaliyah Hampton MD Facility:[facility] Start: 10-21-2023 ambulatory Zack KAISER Facility:[facility] Start: 09-30-2023 End: 10-01-2023 ambulatory Aaliyah Hampton MD Facility:[facility] Start: 04-29-2023 End: 04-30-2023 ambulatory Aaliyah Hampton MD Facility:[facility] Start: 04-15-2023 End: 04-16-2023 ambulatory Aaliyah Hampton MD Facility:[facility] Start: 04-01-2023 End: 04-02-2023 ambulatory Aaliyah Hampton MD Facility:[facility] Start: 03-25-2023 End: 03-26-2023 ambulatory Aaliyah Hampton MD Facility:[facility] Start: 10-16-2022 End: 10-16-2022 Pain Management Otis Burch [facility] Start: 08-28-2022 End: 08-28-2022 Pain Management Otis Burch [facility] Start: 05-04-2022 End: 05-05-[address] DOCTOR [...] 03-01-2022 Patient encounter procedure Oral DIETZ [facility] Start: 11-10-2021 End: 11-11-2021 ambulatory PETEY HORTENCIA Facility:[facility] Start: 05-24-2021 End: 06-28-[address] DOCTOR BEAR Facility:[facility] Procedures Date Procedure Procedure Detail Performing Clinician Start: 12-25-2023 Excision of lipoma of back Zack KAISER Start: 08-28-2022 Radiofrequency ablation of medial branch of lumbar nerve using fluoroscopic guidance Otis Burch Comment on above: L4/5 +L5/S1 40-50% relief Start: 10-17-2020 Antibody screen Comment on above: Performed By: #### [id number] ####[facility] [id number] [place], [place] [phone] Start: 05-09-2020 Adult depression screening assessment Lazara Vogel MD Work Phone: Start: 04-18-2020 Colonoscopy Oral DIETZ Start: 04-18-2020 Esophagogastroduodenoscopy Oral DIETZ section Oral DIETZ section Zack Albarado Cholecystectomy Oral DIETZ Fasciotomy of foot Zack HOFFMAN Trevor-en-Y gastrojejunostomy Zack KAISER Plan of Treatment Date Care Activity Detail Author Start: 05-17-2022 Influenza vaccination INFLUENZA (#1) [facility] Start: 05-09-2021 Adult depression screening assessment DEPRESSION SCREENING [facility] Start: 04-10-2021 COVID-19 VACCINE (3 - Booster for Moderna series) COVID-19 VACCINE (3 - Booster for Moderna series) [facility] Start: 2013 HPV TESTING HPV TESTING [facility] Start: 02-22-2004 PAP TESTING PAP TESTING [facility] Start: 2002 Urine microalbumin profile DTAP,TDAP,TD (1 - Tdap) [facility] Start: 2001 ANNUAL PCP TEAM JR. SYSTEMS ADMINISTRATOR 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 VISIT ANNUAL PCP TEAM CHRONIC DISEASE VISIT [facility] Start: 2001 BP CONTROLLED (<130/80) BP CONTROLLE D (<130/80) [facility] Start: 2001 HEPATITIS C SCREENING HEPATITIS C SC REEPEEWEE [facility] Start: 2001 HIV SCREENING HIV SCREENING [facility] Start: 2001 SPIROMETRY SPIROMETRY [facility] Start: 1989 PNEUMOCOCCAL (1 - PCV) PNEUMOCOCCAL (1 - PCV) [facility] Immun[facility] Immunization Date Immunization Notes Care Provider Fa cility 11-11-2020 SARS-CoV-2 (COVID-19 ) mRNA-1273 vaccine Zack KAISER [facility] Comment on above: Result Comment: 2023: TPV20 09-28-2020 COVID-19 vaccine, fu ll dose (MODERNA) Lazara Vogel MD Work Phone: [facility] Comment on above: Result Comment: 2023: TPV20 07-01-2020 influenza, injectabl e, quadrivalent, preservative free Lazara Vogel MD Work Phone: [facility] 06-17-2020 influenza virus vaccine, unspecified formulation Lazara Vogel MD Work Phone: [facility] NEGATED: Highlighted row has not occurred!11-11-2023 influenza virus vaccine, unspecified formulation Zack ANTONELLA [facility] Payers Date Payer Category Payer Self-pay [id number] 2022 Medicaid [id number] 2022 Private Health Insurance 2022 Unknown 2022 Unknown [id number] 2018 Medicaid [facility] MEDICAID [facility] COMMUNITY PLAN MEDICAID [id number] 2018-Present [phone] [address] [place] [address] Medicaid [id number] 1983 Unknown [id number] 2.840.1.990386.3.579.2. 593 1983 Unknown [id number] 11.01.840.1.272512.3.579.2. 593 1983 Unknown [id number] 2.840.1.331471.3.579.2. 593 1983 Unknown [id number] 2.16840.1.549754.3.579.2. 593 1983 Unknown [id number] 2.840.1.376604.3.579.2. 593 1983 Unknown [id number] 2.840.1.055982.3.579.2. 593 1983 Unknown [id number] .0.1.612167.3.579.2. 593 1983 Unknown [id number] 2.840.1.222670.3.579.2. 727 1983 Unknown [id number] 11.01.830.1.878082.3.579.2. 727 1983 Unknown [id number] .840.1.450748.3.579.2. 727 1983 Unknown [id number] .1.514770.3.579.2. 196 1983 Unknown [id number] .1.542810.3.579.2. 196 1983 Unknown [id number] 11.01.830.1.344309.3.579.2. 1983 Unknown [id number] 840.1.140565.3.579.2. 1983 Unknown [id number] 11.01.830.1.370608.3.579.2. 1983 Unknown [id number] 840.1.437886.3.579.2. 1983 Unknown [id number] 840.1.430821.3.579.2. 1983 Unknown [id number] 840.1.519881.3.579.2. 196 1983 Unknown [id number] 2.16.840.1.384932.3.579.2. 196 1959 Unknown [id number] Unknown [id number] 2.16.840.1.156540.3.579.2. 531 Social History Date Type Detail Facility Start: 03-01-2022 End: 11-11-2023 Tobacco smoking status Never smoked tobacco (finding) [facility] Tobacco smoking status Never [facility] Sex Assigned At Female [facility] Start: 06-27-2017 Tobacco use and exposure Smokeless tobacco non-user [facility] Start: 04-12-2022 Alcohol intake Current drinke r of alcohol (finding) [facility] Start: 04-12-2022 Alcohol intake [facility] Start: 01-05-2020 History SDOH Alcohol Frequency 3 [facility] Start: 01-05-2020 History SDOH Alcohol Std Drinks 1 [facility] Start: 10-17-2020 History SDOH Alcohol Comment once a month, 1 drink [facility] Start: 1985 Sex Assigned At Not on file C [facility] Start: 04-01-2022 End: 04-11-2022 Exposure to SARS-CoV-2 (event) Not sure [facility] Start: 1985 Sex Assigned At Female F [facility] Functional Status Date Assessment Result Facility 10-16-2022 Functional Status N/A [facility] 08-28-2022 Functional Status N/A [facility] Clinical Notes 05-04-2020 to 12-27-2023 Note Date & Type Note Facility 12-27-2023 Hospital Discharge instructions Follow Up Care 12/27/2023 13:04:11 With:ANTONELLA KOENIG, MASTER Martinez Address: [address] [place] [address]- When: only if needed [facility] [place] 11-11-2023 Note Chief Complaint consultation for skin [...] Brother. Colon ca (more content not included)... [facility] Comment on above: Result Comment: Elec tronically [...] concerns. Patient agrees with plan of care. [facility]07-28-2022 NoteHNO ID: [id number] Author: ST Rick Service: ? Author Type: Mysql Database Developer Type: Progress Notes Filed: 04/12/2022 3:50 PM Note Text: DATE OF PHOTOS: 04/12/2022 Body Part: Breasts, Abdomen, Leg(s) and Arms Tomeka Rivas April 12, 2022 3:49 [facility]07-28-2022 History of Present illness Narrative* Tomeka RivasST - 04/12/2022 3:49 PM EDT DATE OF PHOTOS: 04/12/2022 Body Part: Breasts, Abdomen, Leg(s) and Arms Tomeka RivasST April 12, 2022 3:49 PM [facility]22 NoteHNO ID: [id number] Author: Lazara Vogel MD Service: ? Author [...] this visit. ALLERGIES A (more content not included)...[facility]07-27-2022 History of Present illness Narrative* Lazara Vogel [...] Past Histories independently gathered by the clinical legal support assistant and the remaining scribed note accurately describes [...] weeks. Lazara Vogel MD documented in [facility] Evaluation + Plan note Diagnostic Tests [...] * Vitamin B12 Level 04/25/21 [facility]02-25-2022 NoteHNO ID: [id number] Author: Ena Murray MD Service: ? Author [...] mcg, Iron 45-60 mg and calcium citrate 2115-1822 mg/day PHYSICAL EXAMINATION: Weight loss: BMI 23.2 [...] great ? EGD Ena Murray [facility]09-30-2021 NoteHNO ID: [id number] Author: Ena Murray MD Service: ? Author [...] mcg, Iron 45-60 mg and calcium citrate 2856-6340 mg/day ? COMPLETE REVIEW OF SYSTEMS Constitutional--Negative [...] which included preparing to see the patient, [id number] patient care and completing clinical documentation.[facility]08-10-2021 Evaluation + Plan note Future Scheduled Tests Laboratory* Copper Level 04/25/21 * Zinc Level 04/25/21 * Vitamin A Level 04/25/21 * Vitamin B1 04/25/21 * Vitamin B6 Lvl 04/25/21 * Vitamin D 25 Hydroxy 04/25/21 * Ferritin 04/25/21 * Folate Level 04/25/21 * Iron Level 04/25/21 * Magnesium Level 04/25/21 * Vitamin B12 Level 04/25/21 [facility] [id number] History of Past illness Narrative* Problem Noted Date Resolved Date Morbid obesity 05/04/2020 01/23/2021 documented as of this encounter (statuses as of 04/12/2022) [facility]08-19-2020 History of Past illness Narrative* Problem Noted Date Resolved Date Morbid obesity 05/04/2020 01/23/2021 documented as of this encounter (statuses as of 04/12/2022) [facility] Future Appointments Appointment Date:09/24/2022 10:30:00 AM Scheduled Provider:Sridevi Goetz PA-C Location:[facility] Appointment Type:Pain Management - Follow Up (FT) [facility] Diagnosis Hx of bariatric surgery- Primary Bariatric surgery status Excess skin [facility] noteNo assessment information availableJ.[facility]. [facility] Work Phone: Hospital course Narrative No data available for this section [facility] Hospital Discharge instructions No data available for this section [facility] Progress note No data available for this section [facility] Summary Purpose Family History No Family History Records FoundNo Family History Records FoundNo Family History Records FoundNo Family History Records FoundNo Family History Records Found No data available for this section No Family History Records Found No data available for this section No Family History Records FoundNo Family History Records Found Advance Directives No Advanced Directives Records FoundDocuments on File Type Date Recorded Patient Call Center Assistant Expl anation Advance Directive(s) 12/16/2020 8:43 AM Advance Directive(s) 12/15/2020 1:00 PM Advance Directive(s) 10/24/2020 10:04 AM Advance Directive(s) 10/04/2020 4:19 PM Advance Directive Response Recorded Date/ Time Advance Directives No April 30, 2018 4:07pm Hospital Course Note HNO ID: [id number] Author: Douglas Torrez Service: General Surgery Author [...] (more content not included)... Note HNO ID: [id number] Author: Devonte Zurita Service: Anesthesiology Author Type: Nurse Recreation Worker Type: Anesthesia Procedure Notes Filed: 10/24/2020 2:25 PM Note Text: ANESTHESIOLOGY PROCEDURE NOTE Airway General Information Procedure Start Time/Medication Administration: 10/24/2020 2:14 PM Patient location during procedure: OR Timeout Performed Pre-procedure: timeout performed Patient identity confirmed: arm band, care recruiting team lead and patient Staffing Anesthesiologist: Brandon Stoddard DIGITAL MEDIA ASSOCIATE: Pallavi Zurita Performed by: SHAVON Indications and [...] (more content not included)... Note HNO ID: [id number] Author: Devonte Zurita Service: Anesthesiology Author Type: Nurse Recreation Worker Type: Anesthesia Procedure Notes Filed: 10/24/2020 2:26 [...] October 24, 2020 TIME: 2:26 PM CSN: [id number] Note HNO ID: [id number] Author: Douglas Torrez Service: General Surgery Author Type: Physician Type: Brief Op Note Filed: 10/24/2020 4:36 PM Note Text: BRIEF OPERATIVE NOTE [facility] LOG ID: [id number] SURGERY/PROCEDURE DATE: 10/24/2020 INCISION/PROCEDURE START TIME: 2:28 PM INCISION CLOSE/PROCEDURE END TIME: 4:31 PM SURGEON(S) AND CURB MACHINE OPERATOR(S): Surgeon(s) and Role: * Ena Murray - Primary * Jarad Clarke (Res) DO Steven - Resident - Assisting * Presley Torrez - Resident - Assisting No Additional Staff PROCEDURES AND ANESTHESIA: Procedure(s) and Anesthesia Type: * LAPAROSCOPIC GASTRIC RESTRICTIVE SURG W/ BYPASS AND TREVOR-EN-Y Procedure Findings Note HNO ID: [id number] Author: Devonte Zurita Service: Anesthesiology Author Type: Nurse Recreation Worker Type: Anesthesia Procedure Notes Filed: 10/24/2020 2:25 PM Note Text: ANESTHESIOLOGY PROCEDURE NOTE Airway General Information Procedure Start Time/Medication Administration: 10/24/2020 2:14 PM Patient location during procedure: OR Timeout Performed Pre-procedure: timeout performed Patient identity confirmed: arm band, care recruiting team lead and patient Staffing Anesthesiologist: Brandon Stoddard DIGITAL MEDIA ASSOCIATE: Pallavi Zurita Performed by: SHAVON Indications and [...] (more content not included)... Note HNO ID: [id number] Author: Devonte Zurita Service: Anesthesiology Author Type: Nurse Recreation Worker Type: Anesthesia Procedure Notes Filed: 10/24/2020 2:26 [...] October 24, 2020 TIME: 2:26 PM CSN: [id number] Note HNO ID: [id number] Author: Douglas Torrez Service: General Surgery Author Type: Physician Type: Brief Op Note Filed: 10/24/2020 4:36 PM Note Text: BRIEF OPERATIVE NOTE [facility] LOG ID: [id number] SURGERY/PROCEDURE DATE: 10/24/2020 INCISION/PROCEDURE START TIME: 2:28 PM INCISION CLOSE/PROCEDURE END TIME: 4:31 PM SURGEON(S) AND CURB MACHINE OPERATOR(S): Surgeon(s) and Role: * Ena Murray - Primary * Jarad Clarke (Res) DO Steevn - Resident - Assisting * Presley Torrez - Resident - Assisting No Additional Staff PROCEDURES AND ANESTHESIA: Procedure(s) and Anesthesia Type: * LAPAROSCOPIC GASTRIC RESTRICTIVE SURG W/ BYPASS AND TREVOR-EN-Y Additional Source Comments INFORMATION SOURCE (unrecogn ized section and content) DATE CREATED AUTHOR 08/11/2020 [facility] DATE CREATED AUTHOR AUTHOR'S ORGANIZ ATION 10/18/2020 [facility] DATE CREATED AUTHOR AUTHOR'S ORGANIZ ATION 12/17/2020 [facility] DATE CREATED AUTHOR AUTHOR'S ORGANIZ ATION 04/16/2022 [facility] DATE CREATED AUTHOR AUTHOR'S ORGANIZ ATION 05/10/2022 [facility] DATE CREATED AUTHOR AUTHOR'S ORGANIZ ATION 12/26/2023 [facility] DATE CREATED AUTHOR AUTHOR'S ORGANIZ ATION 01/09/2024 [facility] DATE CREATED AUTHOR AUTHOR'S ORGANIZ ATION 01/09/[address] [facility] Care Team (unrecognized sect ion and content) Boxer Operator Relationship Specialty Start Date End Date Vernon Castano III, DO [address] [address] PCP - General Family Practice 10/04/20 Boxer Operator Relationship Specialty Start Date End Date Vernon Castano III, DO [address] [place] [address] PCP - General Family Practice 10/04/20 Team Status: Inactive Member Role Status Dates Zack Kaiser MD FACS Attending Provider Active Start: December 25, 2023 End: December 25, 2023 Source Comments (unrecognize d section and content) In the event this informatio n is protected by the Federal Confidentiality of Alcohol and Drug Abuse Patient Records regulations: The Federal rules restrict any use of the information to criminally investigate or prosecute any alcohol or drug abuse patient.[facility] the event this information is protected by the Federal Confidentiality of Alcohol and Drug Abuse Patient Records regulations: The Federal rules restrict any use of the information to criminally investigate or prosecute any alcohol or drug abuse patient.[facility] Reason for Visit (unrecogniz ed section [...] BE BASED ON THE PRIMARY CLINICAL RECORDS. [employer] [facility]. provides no warranty or guarantee of the accuracy or completeness of information in this document.
[2024-01-20 07:35] VITALS: BP 124/84; PULSE 66; TEMP 36.3; O2SAT 100
[2024-01-20 07:52] LABS: HCG Qualitative NEGATIVE (NEGATIVE)
[2024-01-20 08:27] VITALS: BP 120/71; BP 127/76; PULSE 64; PULSE 66; O2SAT 92; O2SAT 94
--- NOTE | 2024-01-20 08:29 | W.PM.PROCNOT ---
Date of procedure: 01/20/24 Pre-op diagnosis: Lumbar stenosis with neurogenic claudication Post-op diagnosis: same as pre-op Procedure: Procedure: Bilateral L4-5 transforaminal epidural steroid injection Medications: Bupivacaine 0.25% 2cc, lidocaine 2% 1cc, kenalog 80mg The patient was seen and examined in the preoperative holding area.? Informed consent was obtained and placed on the chart.? Patient was brought to the medical procedure unit and placed in the prone position where a timeout was completed verifying the correct patient, procedure site, position, and planned special equipment using sterile aseptic technique.? Under direct fluoroscopic visualization a 25-gauge Quincke tipped spinal needle was advanced at level left L4-5 to the designated neural foramen where contrast dye was injected to show adequate spread.? There was no evidence of vascular or adverse uptake.? Epidural spread was appreciated.? The above-mentioned injectate was then placed in a 1.5 mL aliquot preceded by negative aspiration.? The needle was removed. The same procedure, at the same level, was completed on the opposite side. ? Patient was taken to the postprocedural recovery area and monitored for an appropriate length of time before found suitable for discharge in the accompaniment of a responsible adult. Anesthesia: Local Surgeon: Aaliyah Hampton Pathology: none sent Condition: stable Disposition: no change
[2024-01-20] MEDS: LIDOCAINE HCL 2% PF 100 MG/5 ML VIAL 2 ML INJ (08:31)
[2024-01-20] MEDS: 0.9 % SODIUM CHLORIDE 10 ML SYRINGE - SALINE FLUSH INJ (08:31)
[2024-01-20] MEDS: IOHEXOL 240 MG/ML - 10 ML VIAL 24 MG INJ (08:31)
[2024-01-20] MEDS: BUPIVACAINE HCL 0.25% PF 25 MG/10 ML VIAL INJ (08:31)
[2024-01-20] MEDS: TRIAMCINOLONE ACETONIDE 40 MG/ML VIAL 80 MG INJ (08:32)
== END 2024-01-20 08:35 | disposition home or self-care (01) ==
PROVIDERS: PCP Physician Assistant; Visit Provider Anesthesiology
DX: M48.062 Spinal stenosis, lumbar region with neurogenic claudication (principal)
CPT/HCPCS: 36415; 64483; 84703; Q9966

== ENCOUNTER 2024-01-30 14:28 | Outpatient (OUT) | payer OTHER, SELFPAY ==
--- NOTE | 2024-01-30 15:01 | PM.CN ---
Consult Note: HPI Data of Consult Patient: known to practice within the last 3 years Consult date: 12/16/23 Requesting Physician: Miladys Vivas NP Primary Care Provider: PETEY BURNETT Consult Narrative Reason for consult: low back, bilateral lower extremity pain, neck pain/radiculopathy Narrative: this is a pleasant 38-year-old female who presents for assessment. She had significant relief after her recent lumbar epidural steroid injection of her bilateral lower extremity pain, reporting greater than 70% improvement in pain and functional ability. She had a lumbar radiofrequency ablation completed in the past, which provided significant relief of >50% for greater than six months. She continues to engage in a course of provider directed home exercises, which has not provided relief for greater than six weeks. She continues to utilize [id number] pain medications, as well as Lyrica and baclofen, which provide mild relief. She otherwise denies effort medication side effects or loss of bowel or bladder control. Continues to have cervical pain and radiculopathy, reporting >50% improvement from prior cervical MANUEL. cc:: CC: Miladys Vivas NP Review of Systems ROS Status of ROS 10 or more systems reviewed and unremarkable except as noted in history and below Musculoskeletal Reports: back pain and neck pain [facility] Medical History (Updated 12/24/23 @ 12:03 by Meg Mujica RN) Change in bowel habits ?R19.4 - Change in bowel habit (ICD-10) Prediabetes ?R73.03 - Prediabetes (ICD-10) Obesity ?E66.9 - Obesity, unspecified (ICD-10) Obstructive hydronephrosis Migraines ?G43.909 - Migraine, unspecified, not intractable, without status migrainosus (ICD-10) Lipoma of back ?D17.1 - Benign lipomatous neoplasm of skin and subcutaneous tissue of trunk (ICD-10) Abdominal pain ?R10.9 - Unspecified abdominal pain (ICD-10) Dyssynergia ?R27.8 - Other lack of coordination (ICD-10) Depression ?F32.A - Depression, unspecified (ICD-10) Colon polyps ?K63.5 - Polyp of colon (ICD-10) Chronic constipation ?K59.09 - Other constipation (ICD-10) Asthma ?J45.909 - Unspecified asthma, uncomplicated (ICD-10) Hiatal hernia ?K44.9 - Diaphragmatic hernia without obstruction or gangrene (ICD-10) Fibromyalgia ?M79.7 - Fibromyalgia (ICD-10) Osteoarthritis ?M19.90 - Unspecified osteoarthritis, unspecified site (ICD-10) Low back pain ?M54.50 - Low back pain, unspecified (ICD-10) Anxiety ?F41.9 - Anxiety disorder, unspecified (ICD-10) Hypercholesterolemia ?E78.00 - Pure hypercholesterolemia, unspecified (ICD-10) Hypertension ?I10 - Essential (primary) hypertension (ICD-10) Surgical History H/O gastric bypass ?Z98.84 - Bariatric surgery status (ICD-10) S/P foot surgery, right ?Z98.890 - Other specified postprocedural states (ICD-10) S/P cholecystectomy ?Z90.49 - Acquired absence of other specified parts of digestive tract (ICD-10) S/P ?Z98.891 - History of uterine scar from previous surgery (ICD-10) Family History Other Family history of myocardial infarction Social History Within the past year, how often did you have a drink containing alcohol: 2-4 times a month Smoking status: Never smoker Non-prescribed substance use: denies use Previous occupational history: [employer] Highest level of school completed/degree received: some college, no degree Meds Home Medications and Allergies Home Medications ?Medication ?Instructions ?Recorded ?Confirmed ?Type alprazolam 0.25 mg tablet (Xanax) 0.25 mg PO DAILY PRN anxiety 03/27/23 01/20/24 History baclofen 10 mg tablet 10 mg PO .hs PRN muscle spasm 03/27/23 01/20/24 History duloxetine 30 mg capsule,delayed 90 mg PO QDAY 03/27/23 01/20/24 History release propranolol 120 mg capsule,24 120 mg PO Q24H 03/27/23 01/20/24 History hr,extended release cariprazine 1.5 mg capsule 1.5 mg PO DAILY 08/09/23 01/20/24 History (Vraylar) ondansetron 4 mg disintegrating 4 mg PO DAILY PRN nausea and 08/09/23 01/20/24 History tablet vomiting rimegepant 75 mg disintegrating 75 mg PO DAILY PRN migraine 08/09/23 01/20/24 History tablet (Nurtec ODT) headache trazodone 50 mg tablet 50 mg PO DAILY 08/09/23 01/20/24 History pregabalin 75 mg capsule (Lyrica) 75 mg PO TID #90 caps 11/04/23 01/20/24 Rx Allergies Allergy/AdvReac Type Severity Reaction Status Date / Time latex Allergy Severe Rash Verified 01/20/24 07:40 amitriptyline AdvReac Mild Nausea Verified 01/20/24 07:40 NSAIDS (Non-Steroidal AdvReac Verified 01/20/24 07:40 Anti-Inflamma Exam Constitutional Documenting provider has reviewed patient's vital signs: yes Common normals: no apparent distress, oriented x3, healthy appearing, alert and well nourished General appearance: cooperative HENMT Common normals: normocephalic, hearing grossly normal bilaterally and moist oral mucous membranes Head and scalp: normocephalic Eye Common normals: PERRL Pupil: PERRL Neck & C-Spine Common normals: full ROM General: normal visual inspection Cervical spine: cervical ROM abnormal, pain with cervical ROM and cervical spine tenderness Other: positive spurlings decreased sensation in RUE strength 4/5 in RUE, 5/5 in LUE Chest Common normals: inspection of chest normal Respiratory Common normals: normal respiratory effort, no retractions and no use of accessory muscles Effort & inspection: able to speak in complete sentences Back & Pelvis Lumbar spine/lower back: ROM limited, pain with ROM and straight leg raise negative bilaterally Sacroiliac joints: SI joints normal Other: tenderness to palpation throughout the lumbar spine and paraspinal musculature. Pain is elicited with flexion, extension, and lateral rotation of the lumbar spine. Facet loading maneuvers aree positive bilaterally. Coordination remains intact. Gait remains nonantalgic. Extremity Common normals: normal to inspection and full ROM Neuro Common normals: oriented x3, CN's II-XII intact bilaterally, moves all extremities, no focal motor deficits, no sensory deficits noted and deep tendon reflexes 2+ bilaterally Sensorium/orientation: alert Motor exam: strength 5/5 throughout and no movement abnormalities noted Psych Common normals: mental status grossly normal, thought process normal, cooperative, affect normal, speech normal and activity/motor behavior normal Speech: normal speech Thought process: normal thought process Results Additional Findings Additional findings: If on a controlled substance or opioids, I have checked an [place] report on this patient and there are no aberrancies noted in the prescribing history.??If on a controlled substance or opioid a drug screen was completed and reviewed within the last year, and if there has not been a drug screen completed we ordered one today to monitor higher risk, state monitored pain medication use. As part of providing excellent, safe, comprehensive care, the following was completed at our patient's visit: 1. A medication reconciliation and review to ensure accurate knowledge of current/active medications, including asking our patients to inform us about any ruch-mhl-[id number] medications or herbal remedies/nutritional supplements/alternative remedies. 2. A review to specifically ensure our patients have had annual screening for screening for depression, screening for tobacco use, and screening for unhealthy alcohol use. For concerning screenings had a discussion with the patient, provided patient education, and recommended follow-up with primary care provider when appropriate. If patient noted with a risk of falling, they received education on strength, gait, and balance training to prevent future risk of falling. Assessment and Plan Assessment and Plan (1) Cervical stenosis of spinal canal: (2) Cervical radiculopathy: (3) Lumbar spondylosis: (4) Lumbar spinal stenosis: Qualifiers: Neurogenic claudication status: with neurogenic claudication Qualified Code(s): M48.062 - Spinal stenosis, lumbar region with neurogenic claudication (5) Lumbar disc displacement without myelopathy: Plan greater than 70% improvement ongoing from bilateral L4-5 and bilateral L5-S1 TFESI greater than 50% improvement ongoing from right C5-6 C6-7 TFESI, reports previously 75%-80% improvement and can tell it is wearing off. continue current medications, tolerating well without side effect. declining increase in lyrica at this time f/u 1 month
== END 2024-01-30 14:29 | disposition home or self-care (01) ==
LOC: PM 14:29
PROVIDERS: PCP Physician Assistant; Visit Provider Nurse Practitioner
DX: M48.02 Spinal stenosis, cervical region (principal); M54.12 Radiculopathy, cervical region; M47.816 Spondylosis without myelopathy or radiculopathy, lumbar region; M48.062 Spinal stenosis, lumbar region with neurogenic claudication
CPT/HCPCS: G0463

== ENCOUNTER 2024-06-10 07:26 | Outpatient (OUT) | payer OTHER, SELFPAY ==
--- OUTSIDE RECORDS SUMMARY | 2024-06-10 07:28 | XMS_ITS | CCD ---
Author Organization [facility] CliniSytx Care Team Providers Care Early Childhood Education Instructor Name Role Phone Jose Ram III Primary Care Physician Eyad ROSAS DO, [...] Unavailable KENTON, ANGELA Admitting Unavailable MISC, DR COH Consulting Unavailable MISC, DR CHO Primary Care [...] Kaiser Attending Unavailable Zack Kaiser Admitting Unavailable Zcak KAISER Attending Unavailable Jose Ram Referring Unavailable Zack KAISER Attending Unavailable Zack KAISER Attending Unavailable Berta KOENIG, Aaliyah Arellano Attending Unavailable Berta KOENIG, Aaliyah Arellano Attending Unavailable Berta KOENIG, Aaliyah Arellnao Attending Unavailable Giedraitis , Andrius Eileen Attending Unavailable Giedraitis , Andrius Eileen Attending Unavailable Giedraitis , Andrius Eileen Attending Unavailable Giedraitis , Andrius Eileen Attending Unavailable Giedraitis , Andrius Eileen Attending Unavailable Giedraitis , Andrius Arellano Attending Unavailable Giedraitis , Andrius Eileen Attending Unavailable Giedraitis , Andrius Arellano Attending Unavailable AUDREY VELA Attending Unavailable JOSE RAM Referring Unavailable GODWIN KEYES Attending Unavailable GODWIN KEYES Attending Unavailable Allergies Allergy Classification Reported Allergen(s) Allergy Type Date of Onset Reaction(s) Facility (12 sources) Latex; Translations: [latex] Drug allergy 4 Cutaneous eruption (morphologic abnormality), Other: See Comments [facility] (15 sources) SUMAtriptan; Translations: [sumatriptan] Drug Allergy 7 Other: See Comments [facility] (1 source) Amitriptyline Drug Allergy [facility] (1 source) NSAIDs Drug allergy (disorder) [facility] (1 source) Plasmin Drug Allergy [facility] (3 sources) Adhesive bandage; Translations: [Adhesive Bandage] Propensity to adverse reactions to substance [facility] [place] (1 source) SUMAtriptan Drug Allergy 8 [facility] Repository Medications Current Medications Medication [...] Ordered Start: 10-28-2023 [facility] 1 [facility] by [facility] daily in the morning Strattera [...] Daily, # 50 tab(s), Refills(s) 1, Pharmacy: [facility]5, 155, cm, 01/25/21 14:00:00 EDT, Height/Length [...] Pain, # 45 cap(s), Refills(s) 4, Pharmacy: [facility], 155, cm, 03/01/22 15:01:00 EDT, Height/Length [...] tablet (8 sources) Proton Pump Inhibitor Start: 0 take [...] Start: 12-28-2020 take 1 capsule by mo [facility] once daily propranolol ER (INDERAL LA) [...] on above: Take 1 tablet by [place]wan once daily. Work Excuse (1 source) Start: [...] on above: Take 1 capsule by mo [facility] three times daily for 14 days. Lactobacillus acidophilus (2 sources) Lactobacillus acidophilus (PROBIOTIC ORAL) Take by mouth. 0 Active Comment on above: Take by mouth. levonorgestrel 0.326390 mg/hr intrauterine system (2 sources) Progestin, Progestin-containing [...] on above: Take 1,000 mcg by mo [facility] once daily. Problems Active Problems Problem [...] 10-28-2023 Chronic Other aftercare (1 source) Other long-term (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 therapy; Translations: [OTH ROUTE AIDE CURRENT DRUG THERAPY] Onset: 2 Episodic Other [...] (6 sources) History of bypass of stomach 11-07-2020 [...] Visit Summaryon 0 01-07-2024 Ambulatory Visit Summary ESCAMILLANICA :1985 Visit Date:01/07/2024 Ambulatory Visit Instructions Your Diagnosis Lipoma of back Your Care Team Attending Physician - ANTONELLA KOENIG, Zack Gardiner Primary Care Physician - Jose Ram III, DO This Is Your Medications List [...] Martinez When: Only if needed Where: [address] [place] [address]- Medications What How Much When Instructions Unchanged [...] for choosing us for your care. Normal Sanchez [facility] General Surgery Office/Clini c Noteon 01-07-2024 General [...] KOENIG, MASTER Martinez Only if needed [address] [place] [address]- Additional Instructions: Problem List/Past Medical [...] (COVID-19) mRNA-1273 vaccine 09/28/2020 Recorded 2023-10-28: TPV20 [facility] Comment on above: Result Comment: Elec tronically Signed By: ANTONELLA KOENIG, Zack Tamezbr\Date and Time Signed: 01/07/24 16:13 EDT Operative Reporton Operative Report [id number] Normal [facility] Pathology Noteon 12-27-2023 Pathology Note [id number]#[id number] Normal [facility] Varun 12-25-2023 L Specimen: [id number] eceived: 12/25/23 Status: SOUT Req Num: [id number] Spec Type: Surgical Subm Dr: Zack Kaiser MD FACS Tissues: A Lipoma (LT BACK) Procedures: HE, Gross/Micro L3 Age/ Patient Sex Location Account Attending Physician Nica Escamilla 38/F LABELL [id number] Zack Kaiser MD FACS SPEC NUM: [id number] RECD: 12/25/23 STATUS: LAITH REQ NUM: [id number] JAVI: 12/25/[address]: Zack Kaiser MD FACS ENTERED: 12/25/23 [facility] DR: Yuriy Magana SPEC TYPE: [...] no obvious areas of hemorrhage or necrosis. Household Appliances Service Technician sections are submitted A1. RG Clinical history: Lipoma, path pending CPT Codes 42331 -------- -------- Specimen: [id number] Received: 12/25/23 Status: LAITH Mejia Num: [id number] Spec Type: Surgical Subm Dr: Zack Kaiser MD FACS Tissues: A Lipoma (LT BACK) Procedures: Eric MAHAJAN/Margy L3 -------- Patient: Nica Escamilla [id number] (Continued) -------- Signed (signature on file) Darren Dias MD 12/26/23 1322 Normal [facility] Consent for Procedure/Surger bert 11-12-2023 Consent for Procedure/Surgery [id number] Normal [facility] Consent for Procedure/Surgery [id number]#1.00TIFF Normal [facility] Ambulatory Visit Summaryon 0 11-11-2023 Ambulatory Visit Summary NICA ESCAMILLA :1985 Visit Date:11/11/2023 Ambulatory Visit Instructions Your Care Team Attending Physician - Zack KAISER MD Primary Care Physician - Jose Ram III, DO Referring Physician - Jose Ram III, DO This Is Your Medications List [...] for choosing us for your care. Ailyn [facility] Physician Referralon 024 Physician Referral [id number]#[id number] Normal [facility] PREG HCG QUALon 04-20-2022 , QUAL Negative Normal NEGATIVE [facility] Comment on above: Performed By: #### P REG #### [facility] [address] [address] [address] Refugio Apple CNOVon 04-12-2022 CNOV Office Visit (PLASMN ) NICA ESCAMILLA ([id number]) 1985 F Date Time Provider Department 04/12/22 [...] times d (more content not included)... Normal [facility] PREG HCG QUALon 04-06-2022 , QUAL Negative Normal NEGATIVE [facility] Comment on above: Performed By: #### P REG #### [facility] [address] [place] [address] Dr. Refugio Apple CHEMISTRYOrdered By: SYSTEM SYSTEM [...] CNOV Office Visit (GENSSM ) NICA ESCAMILLA ([id number]) 1985 F Date Time Provider Department 11/10/21 [...] mcg, Iron 45-60 mg and calcium citrate 8773-3545 mg/day PHYSICAL EXAMINATION: Weight loss: BMI 23.2 [...] Ena Murray MD Referring Provider: ENA MURRAY [[id number]] Allergies As of Date: 11/10/2021 Noted Allergy [...] JUANITA (a (more content not included)... Normal [facility] MRI CSPINE WO CONon 11-10-19 [...] by: MANOHAR ALONZO Date: 2021-11-10 14:28 [facility] Office Visit (OSM329 ) NICA ESCAMILLA ([id number]) 1985 F Date Time Provider Department 06/15/21 11:30 AM ENA MURRAY [id number] During your visit today, we recorded the [...] call directly to schedule upper endoscopy at [phone]. Please leave a message if you receive the voicemail with your name, birthday, and reason for calling. Please expect a call or [employer] message with appointment information and instructions. What [...] is especially important if you have had qnyjo-xthnooxmx-lxxfq surgery in the past. How is an [...] minutes for (more content not included)... Normal [facility] HISTORY PHYSICALon HISTORY PHYSICAL HNO ID: [id number] Author: Kalpana Otero MD Service: General Surgery [...] DATE: December 16, 2020 TIME: 9:33 AM [facility] NURSING PROGon 12-16-2020 NURSING PROG HNO ID: [id number] Author: Yashira LauRn) DEEPTHI Nova Service: Nursing [...] None Electronically Signed By: Yashira Nova RN [facility] PT EDon 12-16-2020 PT ED HNO ID: [id number] Author: Manohar LauRn) DEEPTHI Conn Service: Nursing [...] None Electronically Signed By: Manohar Conn RN [facility] NURSING PROGon 10-25-2020 NURSING PROG HNO ID: [id number] Author: Diego Abad RN Service: ? Author Type: Registered Nurse Type: Nursing Progress Note Filed: 10/25/2020 2:09 AM Note Text: Nursing Progress Note Patient Name: Nica Escamilla Patient Location: [place] [address] [address] Daily Note: 2000: Assessment complete see NPR. Pt present w/ nausea Zofran given. Pain 8/10 PRN pain med given. 0100: Nausea concerned by pt. Paged for second like prevention. 0130: Compazine ordered/given. No cough or SOB at this time. Lap sites intact no bruising. No gas passed yet. This note was completed by: Diego Abad [facility] PLAN OF CAREon 10-25-2020 PLAN OF CARE HNO ID: [id number] Author: Davina Bonilla ([place]) Service: Pharmacy Author Type: ? Type: Plan of Care Filed: 10/25/2020 2:56 PM Note Text: Pharmacy Discharge Medication Service: This patient has elected to receive their discharge prescriptions through the [facility] Bedside Prescription Delivery program. The prescriptions are currently being processed. A follow-up note will be entered once the prescriptions have been filled and delivered to the patient. Please contact me with any questions or updates to the patient's discharge medications. Davina Bonilla ([place]) DCT Contact Info: [phone] [facility] PLAN OF CARE HNO ID: [id number] Author: Davina Bonilla ([place]) Service: Pharmacy Author Type: ? Type: Plan of Care Filed: 10/25/2020 2:56 PM Note Text: PLATFORM LOADER BEDSIDE DELIVERY SURVEY 1. Patient to use [facility] Bedside Delivery - YES Insurance Information as follows: 2. Insurance card on file - YES 3. Credit card for payment - N/A [facility] PLAN OF CARE HNO ID: [id number] Author: Davina Bonilla ([place]) Service: Pharmacy Author Type: ? Type: Plan [...] or your Primary Care Provider. Davina Bonilla ([place]) PAGER: [phone] October 25, 2020 2:56 PM [facility] PROGRESSon 10-25-2020 PROGRESS HNO ID: [id number] Author: Presley Torrez Service: General Surgery Author [...] October 25, 2020 TIME: 7:02 AM Normal [facility] PROGRESS HNO ID: [id number] Author: Juliet Lilly Service: General Surgery Author [...] care Juliet Lilly MD General Surgery PGY1 [facility] PT EDon 10-25-2020 PT ED HNO ID: [id number] Author: Geoff Hector Service: Nutrition Therapy Author Type: Oyster Planter Type: Patient Education Filed: 10/25/2020 12:04 PM [...] October 25, 2020 TIME: 12:04 PM PAGER: [phone] [facility] ANES POSTPROC EVALon 021 ANES POSTPROC EVAL HNO ID: [id number] Author: Brandon Stoddard Service: Anesthesiology Author Type: [...] October 24, 2020 TIME: 4:58 PM CSN: [id number] [facility] ANES PRE-OPon 10-24-2020 ANES PRE-OP HNO ID: [id number] Author: Colin Archer Service: Anesthesiology Author Type: [...] October 24, 2020 TIME: 1:18 PM CSN: [id number] [facility] NURSING PROGon 10-24-2020 NURSING PROG HNO ID: [id number] Author: Sridevi LauRn) DEEPTHI Triana Service: Nursing Author Type: Registered Nurse Type: Nursing Progress Note Filed: 10/24/2020 6:56 PM Note Text: Nursing Progress Note Patient Name: Nica Escamilla Patient Location: [place] [address] [address] Transfer Note: Patient transferred into room/unit PK325 in stable condition. Actions taken: No futher actions taken at this time. at bedside. Will continue to monitor and check with patient. This note was completed by: Sridevi Triana RN [facility] NURSING PROG HNO ID: [id number] Author: Gege LauRn) DEEPTHI Kenney Service: Nursing Author Type: Registered Nurse Type: Nursing Progress Note Filed: 10/24/2020 1:38 PM Note Text: PATIENT EDUCATION TOPIC: PROCEDURE / SURGERY: Pre-op Teaching: Protocols PATIENT NAME: Nica Escamilla [place] READINESS TO LEARN COGNITIVE ABILITY: Alert and [...] None Electronically Signed By: Gege Kenney RN [facility] OPERATIVE NOon 10-24-2020 OPERATIVE NO HNO ID: [id number] Author: Ena Murray Service: General Surgery Author Type: Physician Type: Operative Report Filed: 10/26/2020 11:07 AM Note Text: [facility] - Operative Report NICA ESCAMILLA : 1985 AGE: 35. SEX: F PATIENT TYPE: I HOSP SV: [facility] LOCATION: [facility] ATTENDING PHYSICIAN: Ena Murray MD CSN NUMBER: [id number] DATE OF SURGERY/PROCEDURE: 10/24/2020 INCISION/PROCEDURE START TIME: 2:28 PM INCISION CLOSE/PROCEDURE END TIME: 4:31 PM PREOPERATIVE DIAGNOSIS: Morbid obesity, BMI of 42. POSTOPERATIVE DIAGNOSIS: 1. Morbid obesity. 2. Hiatal hernia. SURGEON: Ena Murray MD COTTON JAMMER: Presley Torrez MD. SURGERY/PROCEDURE: 1. Laparoscopic repair [...] performed in the retroesophageal window and a Sigurd drain was passed. It was used to retract the esophagus. The posterior cruroplasty was completed using 1 hfhlbz-my-ftuyf stitch using silk to tighten the sharri. [...] Torrez assisted in the absence of qualified md do resident urgent care help. He created the pouch and created the jejunojejunostomy. Ena Murray MD TA:[id number] /[id number] Normal [facility] Confirm Blood Typeon 021 ABO/RH(D) Positive Normal [facility] Comment on above: Performed By: #### C ONABO ####[facility] [place], [place] [phone] HISTORY PHYSICALon HISTORY PHYSICAL HNO ID: [id number] Author: Amanda Shane (Pa) Service: ? Author Type: Physician Fire Captain Type: HANDP Filed: 10/17/2020 2:58 PM Note Text: HISTORY AND PHYSICAL EXAMINATION SERVICE DATE: 10/17/2020 SERVICE TIME: 2:42 PM PRIMARY CARE PHYSICIAN: Jose Ram III, DO REASON FOR VISIT: Nica Escamilla [...] Pain Ureteral Stone With Hydronephrosis Alopecia Positive Junaita (Antinuclear Antibody) Fibromyalgia Hypertension Migraine Gerd (Gastroesophageal [...] fevers. Neuro: No history of TIA's, stroke, NOODLE CATALYST MAKER tumor, impaired sensorium, hemiplegia, paraplegia or quadraplegia. [...] or incontinence,, stones or chronic kidney disease LABOR COMMISSIONER: Negative for abnormal vaginal bleeding, abnormal vaginal [...] 2020 TIME: 2:42 PM PAGER/CONTACT #: Normal [facility] Type and SCR (30D)on 021 ABO/RH(D) Positive Normal [facility] Comment on above: Performed By: #### T SCR30 ####[facility] [place], [place] [phone] HOSPon 09-27-2020 [facility] Patient:Nica Escamilla MRN: Height:5' 0 (1.524 m) [...] 44.1 % 10/17/2020 46.0 36.0 Progress Notes ([facility]): Marcella Saldana RN 10/13/2020 2:32 PM [...] Strength Tylenol. Marcella Saldana RN Progress Notes ([address]): Ena Murray MD 10/13/2020 5:31 PM Signed SURGERY PREOPERATIVE VISIT NOTE Name: Nica Escamilla Medical Record: [id number] Encounter No.: [id number] Nica Escamilla is a 35 year old [...] regarding unsatisfactory weight loss as well as long-term weight regain. I have also discussed medical [...] on recommendations of the Governor of the [facility]. Although we will perform appropriate precautions [...] patient. Ena Murray MD Previous Version Normal [facility] HEPATITIS B SURFACE AB IMMUN ITY, QNon 08-11-2020 HEPATITIS B SURFACE AB IMMUNITY, QN >1000 Normal > OR = 10 [facility] Comment on above: Result Comment: Patient has immunity to hepatitis B virus. For additional information, please refer to http://[email or web address]/WGE035 (This link is being provided for informational/ educational purposes only). Performed By: #### 8 475 #### [facility]-[address], [address] [place] [id number] Wood Machinist: Sixto Chandler MD Vital Signs Date Time Vital Sign Value Performing Clinician Facility 10-16-2022 12:53-0500 Diastolic blood pressure 80 mm[Hg] [facility] 10-16-2022 12:53-0500 Heart rate 55 /min Otis Mar[facility] 10-16-2022 12:53-0500 Mean blood pressure 89 mm[Hg] Otis Marcin [facility] 10-16-2022 12:53-0500 Respiratory rate 18 /min Ot[facility] Marcin [facility] 10-16-2022 12:53-0500 Systolic blood pressure 108 mm[Hg] [facility] Mar[facility] 08-28-2022 08:52-0500 Heart rate 70 /min Ot[facility] Marcin [facility] 08-28-2022 08:52-0500 SaO2% (BldA) [Mass fraction] 100 % Otis Marcin [facility] 08-28-2022 08:52-0500 Respiratory rate 16 /min Ot[facility] Marcin [facility] 08-28-2022 08:52-0500 Diastolic blood pressure 80 mm[Hg] [facility] 08-28-2022 08:52-0500 Mean blood pressure 93 mm[Hg] Ot[facility] Mar[facility] 08-28-2022 08:52-0500 Systolic blood pressure 121 mm[Hg] Ot[facility] Mar[facility] 08-28-2022 08:46-0500 Heart rate 70 /min [facility] Mar[facility] 08-28-2022 08:46-0500 SaO2% (BldA) [Mass fraction] 100 % [facility] 08-28-2022 08:46-0500 Body temperature 97.52 [degF] Ot[facility] Mar[facility] 08-28-2022 08:46-0500 Diastolic blood pressure 69 mm[Hg] Ot[facility] Mar[facility] 08-28-2022 08:46-0500 Mean blood pressure 80 mm[Hg] Otis Marcin [facility] 08-28-2022 08:46-0500 Systolic blood pressure 104 mm[Hg] [facility] 08-28-2022 08:46-0500 Respiratory rate 16 /min Ot[facility] Mar[facility] 08-28-2022 08:41-0500 Diastolic blood pressure 64 mm[Hg] Otis Mar[facility] 08-28-2022 08:41-0500 Systolic blood pressure 102 mm[Hg] [facility] Mar[facility] 08-28-2022 08:40-0500 Heart rate 71 /min Ot[facility] Mar[facility] 08-28-2022 08:40-0500 Respiratory rate 12 /min Ot[facility] Mar[facility] 08-28-2022 08:40-0500 SaO2% (BldA) [Mass fraction] 100 % Ot[facility] Mar[facility] 08-28-2022 08:35-0500 Respiratory rate 12 /min Ot[facility] Marcin [facility] 08-28-2022 08:30-0500 Respiratory rate 12 /min Otis Marcin [facility] 08-28-2022 07:17-0500 Mean blood pressure 78 mm[Hg] Ot[facility] Mar[facility] 08-28-2022 07:17-0500 Respiratory rate 16 /min Otis Marcin [facility] 08-28-2022 07:17-0500 Body temperature 98.24 [degF] [facility] 04-12-2022 14:47-0400 Body height 152.4 cm Lazara Vogel MD Work Phone: [facility] 04-12-2022 14:47-0400 Body temperature 98.91 [degF] Lazara Vogel MD Work Phone: [facility] 04-12-2022 14:47-0400 Body weight 55.52 kg Lazara Vogel MD Work Phone: [facility] 04-12-2022 14:47-0400 Diastolic blood pressure 92 mm[Hg] Lazara Vogel MD Work Phone: [facility] 04-12-2022 14:47-0400 Heart rate 65 /min Lazara Vogel MD Work Phone: [facility] 04-12-2022 14:47-0400 Systolic blood pressure 140 mm[Hg] Lazara Vogel MD Work Phone: [facility] 03-01-2022 14:59-0400 Diastolic blood pressure 86 mm[Hg] Mixon SALAM [facility] 03-01-2022 14:59-0400 Heart rate 52 /min Mixon SALAM [facility] 03-01-2022 14:59-0400 Systolic blood pressure 130 mm[Hg] Mixon SALAM [facility] Encounters Encounter Date Encounter Type Care Provider Facility Start: 06-01-2024 End: 06-01-2024 ambulatory GODWIN KEYES Not Available Start: 04-06-2024 End: 04-06-2024 ambulatory GODWIN KEYES Not Available Start: 02-17-2024 End: 02-17-2024 ambulatory AUDREY VELA Not Available Start: 01-20-2024 End: 01-21-2024 ambulatory Aaliyah Hampton MD Facility: [place] Start: 01-07-2024 End: 01-08-2024 ambulatory Zack KAISER Facility: [place] Start: 01-07-2024 End: 01-07-2024 [facility] Start: 01-06-2024 End: 01-07-2024 ambulatory Aaliyah Hampton MD Facility: [place] Start: 01-03-2024 ambulatory Zack KAISER Facility:[facility] [place] Start: 12-25-2023 End: 12-25-2023 ambulatory Zack Kaiser Facility:[facility] Start: 12-25-2023 End: 12-26-2023 ambulatory Zack KAISER [facility] Work Phone: Start: 12-25-2023 End: 12-25-2023 Departed Referred MD Zack Kaiesr Work Phone: [facility] Start: 12-16-2023 End: 12-17-2023 ambulatory Aaliyah Hampton MD Facility:[facility] [place] Start: 12-09-2023 End: 12-10-2023 ambulatory Aaliyah Hampton MD Facility:[facility] [place] Start: 12-02-2023 End: 12-03-2023 ambulatory Aaliyah Hampton MD Facility:[facility] [place] Start: 11-11-2023 End: 11-12-2023 ambulatory Zack KAISER Facility: [place] Start: 11-11-2023 End: 11-26-2023 Pre-admission assessment Zack KAISER [facility] Start: 11-04-2023 End: 11-05-2023 ambulatory Aaliyah Hampton MD Facility: [place] Start: 10-21-2023 ambulatory Zack KAISER Facility:[facility] Start: 09-30-2023 End: 10-01-2023 [facility]ulatory [facility] Start: 04-29-2023 End: 04-30-2023 ambulatory Andjeromeus Tacoautandrzej Vinsonitis Facility: [place] Start: 04-15-2023 End: 04-16-2023 ambulatory Aaliyah Hampton MD Facility: [place] Start: 04-01-2023 End: 04-02-2023 ambulatory Aaliyah Vinsonitis Facility:[facility] Start: 03-25-2023 End: 03-26-2023 ambulatory [facility] Start: 10-16-2022 End: 10-16-2022 Pain Management [facility] Start: 08-28-2022 End: 08-28-2022 Pain Management [facility] Start: 05-04-2022 End: 05-05-2022 ambulatory [...] Start: 03-23-2022 End: 03-24-2022 ambulatory ANGELA KENTON Facility: Start: 03-01-2022 End: 03-01-2022 Patient encounter procedure Oarl DIETZ [facility] Start: 11-10-2021 End: 11-11-2021 ambulatory [...] Comment on above: Performed By: #### [id number] ####[facility] [id number] [place] [phone] Start: 05-09-2020 Adult depression screening assessment Lazara Vogel MD Work Phone: Start: 04-18-2020 Colonoscopy Oral DIETZ Start: 04-18-2020 Esophagogastroduodenoscopy Oral DIETZ section Oral DIETZ section Zack Albarado Cholecystectomy Oral DIETZ Fasciotomy of foot Zack HOFFMAN Trevor-en-Y gastrojejunostomy Zack KAISER Plan of Treatment Date Care Activity Detail Author Start: 05-17-2022 Influenza vaccination INFLUENZA (#1) [facility] Start: 05-09-2021 Adult depression screening assessment DEPRESSION SCREENING [facility] Start: 04-10-2021 COVID-19 VACCINE (3 - Booster for Moderna series) COVID-19 VACCINE (3 - Booster for Moderna series) [facility] Start: 2013 HPV TESTING HPV TESTING [facility] Start: 02-22-2004 PAP TESTING PAP TESTING [facility] Start: 2002 Urine microalbumin profile DTAP,TDAP,TD (1 - Tdap) [facility] Start: 2001 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 ANNUAL PCP TEAM CHRONIC DISEASE VISIT [facility] Start: 2001 BP CONTROLLED (<130/80) BP CONTROLLE D (<130/80) [facility] Start: 2001 HEPATITIS C SCREENING HEPATITIS C SC REENING [facility] Start: 2001 HIV SCREENING HIV SCREENING [facility] Start: 2001 SPIROMETRY SPIROMETRY [facility] Start: 1989 PNEUMOCOCCAL (1 - PCV) PNEUMOCOCCAL (1 - PCV) [facility] Immunizations Immunization Date Immunization Notes Care Provider Fa victor hugo 11-11-2020 SARS-CoV-2 (COVID-19 ) mRNA-1273 vaccine Zack [facility] Comment on above: Result Comment: 2023: TPV20 09-28-2020 COVID-19 vaccine, fu ll dose (MODERNA) Lazara Vogel MD Work Phone: [facility] Comment on above: Result Comment: 2023: TPV20 07-01-2020 influenza, injectabl e, quadrivalent, preservative free Lazara Vogel MD Work Phone: [facility] 06-17-2020 influenza virus vaccine, unspecified formulation Lazara Vogel MD Work Phone: [facility] NEGATED: Highlighted row has not occurred!11-11-2023 influenza virus vaccine, unspecified formulation Zack [facility] Payers Date Payer Category Payer Self-pay [id number] 2022 Medicaid [id number] 2022 Private Health Insurance 2022 Unknown 2022 Unknown [id number] 2018 [place] [employer] [id number] 2018-Present [phone] [address] [place] [address] Medicaid [id number]. [id number] 1983 Unknown [id number] 2.0.1.709321.3.579.2. 593 1983 Unknown [id number] 20.1.909477.3.579.2. 593 1983 Unknown [id number] 11.01.830.1.229865.3.579.2. 593 1983 Unknown [id number] 20.1.312509.3.579.2. 593 1983 Unknown [id number] 2..1.250288.3.579.2. 593 1983 Unknown [id number] 840.1.878569.3.579.2. 593 1983 Unknown [id number] 840.1.345508.3.579.2. 593 1983 Unknown [id number] 840.1.445369.3.579.2. 727 1983 Unknown [id number] 840.1.247417.3.579.2. 727 1983 Unknown [id number] 840.1.962988.3.579.2. 727 1983 Unknown [id number] 2840.1.561784.3.579.2. 1983 Unknown [id number] 2.16.840.1.172720.3.579.2. 1983 Unknown [id number] 2.16.840.1.234204.3.579.2. 1983 Unknown [id number] 2.16.840.1.175914.3.579.2. 1983 Unknown [id number] 2.16840.1.159762.3.579.2. 1983 Unknown [id number] 2.16840.1.450647.3.579.2. 1983 Unknown [id number] 2.16840.1.947617.3.579.2. 1983 Unknown [id number] 2.16840.1.015315.3.579.2. 1983 Unknown [id number] 2.16840.1.102973.3.579.2. 1983 Unknown [id number] 2.16840.1.255130.3.579.2. 1983 Unknown [id number] 2.16840.1.043781.3.579.2. 1983 Unknown [id number] 2.840.1.992476.3.579.2. 1258 1983 Unknown [id number] 2.16840.1.112110.3.579.2. 1258 1983 Unknown [id number] 2.16840.1.658518.3.579.2. 1259 1959 Unknown [id number] Unknown [id number] 2.16840.1.972864.3.579.2. 531 Social History Date Type Detail Facility Start: 03-01-2022 End: 11-11-2023 Tobacco smoking status Never smoked tobacco (finding) [facility] Tobacco smoking status Never Milind [facility] Sex Assigned At Female [facility] Start: 06-27-2017 Tobacco use and exposure Smokeless tobacco non-user [facility] Start: 04-12-2022 Alcohol intake Current drinke r of alcohol (finding) [facility] Start: 04-12-2022 Alcohol intake [facility] Start: 01-05-2020 History SDOH Alcohol Frequency 3 [facility] Start: 01-05-2020 History SDOH Alcohol Std Drinks 1 [facility] Start: 10-17-2020 History SDOH Alcohol Comment once a month, 1 drink [facility] Start: 1985 Sex Assigned At Not on file [facility] Start: 04-01-2022 End: 04-11-2022 Exposure to SARS-CoV-2 (event) Not sure [facility] Start: 1983 Sex Assigned At Female F [facility] Functional Status Date Assessment Result Facility 10-16-2022 Functional Status N/A [facility] 08-28-2022 Functional Status N/A [facility] Clinical Notes 05-04-2020 to 12-27-2023 Note Date & Type Note Facility 12-27-2023 Hospital Discharge instructions Follow Up Care 12/27/2023 13:04:11 With:ANTONELLA KOENIG, MASTER Martinez Address: [address] [place], [place] [address]- When: only if needed [facility] [place] 11-11-2023 Note Chief Complaint consultation for skin mass HPI Staff 38 year old female presents on consultation from Dr. Ram for left back mass. Reports noting mass [...] Brother. Colon ca (more content not included)... [facility] Comment on above: Result Comment: Elec tronically Signed By: ANTONELLA KOENIG, Zack Carson\Date and Time Signed: 11/11/23 13:28 EST 10-16-2022 Evaluation + Plan note Extrac andres from: Title:FUV Author:Marcin KOENIG, Otis Whitney Date :10/16/22 Impression and Plan 37-year-old female [...] concerns. Patient agrees with plan of care. [facility]07-28-2022 NoteHNO ID: [id number] Author: ST Rick Service: ? Author Type: Dry Curer Type: Progress Notes Filed: 04/12/2022 3:50 PM Note Text: DATE OF PHOTOS: 04/12/2022 Body Part: Breasts, Abdomen, Leg(s) and Arms ST Rick April 12, 2022 3:49 [facility]07-28-2022 History of Present illness Narrative* ST Rick - 04/12/2022 3:49 PM EDT DATE OF PHOTOS: 04/12/2022 Body Part: Breasts, Abdomen, Leg(s) and Arms ST Rick April 12, 2022 3:49 PM [facility] NoteHNO ID: [id number] Author: Lazara Vogel MD Service: ? Author [...] this visit. ALLERGIES A (more content not included)...[facility]07-27-2022 History of Present illness Narrative* [...] Histories independently gathered by the clinical support analyst and the remaining scribed note accurately describes [...] weeks. Lazara Vogel MD [facility] Evaluation + Plan note Diagnostic [...] Level 04/25/21 * Vitamin B12 Level 04/25/21 [facility]02-25-2022 NoteHNO ID: [id number] Author: Ena Murray MD Service: ? Author [...] mcg, Iron 45-60 mg and calcium citrate 5506-5582 mg/day PHYSICAL EXAMINATION: Weight loss: BMI 23.2 [...] ? Doing great ? EGD Ena Murray [facility]09-30-2021 NoteHNO ID: [id number] Author: Ena Murray MD Service: ? Author [...] mcg, Iron 45-60 mg and calcium citrate 4737-4039 mg/day ? COMPLETE REVIEW OF SYSTEMS Constitutional--Negative [...] which included preparing to see the patient, [id number] patient care and completing clinical documentation.[facility]08-10-2021 Evaluation + Plan note Future Scheduled Tests Laboratory* Copper Level 04/25/21 * Zinc Level 04/25/21 * Vitamin A Level 04/25/21 * Vitamin B1 04/25/21 * Vitamin B6 Lvl 04/25/21 * Vitamin D 25 Hydroxy 04/25/21 * Ferritin 04/25/21 * Folate Level 04/25/21 * Iron Level 04/25/21 * Magnesium Level 04/25/21 * Vitamin B12 Level 04/25/21 [facility] [id number] History of Past illness Narrative* Problem Noted Date Resolved Date Morbid obesity 05/04/2020 01/23/2021 documented as of this encounter (statuses as of 04/12/2022) [facility]08-19-2020 History of Past illness Narrative* Problem Noted Date Resolved Date Morbid obesity 05/04/2020 01/23/2021 documented as of this encounter (statuses as of 04/12/2022) [facility] Future Appointments Appointment Date:09/24/2022 10:30:00 AM Scheduled Provider:Sridevi Goetz PA-C Location:[facility] Appointment Type:Pain Management - Follow [facility] ([facility] Diagnosis Hx of bariatric surgery- Primary Bariatric surgery status Excess skin [facility] noteNo assessment information availableA[facility] Work Phone: Hospital course Narrative No data available for this section [facility] Hospital Discharge instructions No data available for this section [facility] Progress note No data available for this section [facility] Summary Purpose Family History No [...] FoundDocuments on File Type Date Recorded Patient Household Appliances Service Technician Expl anation Advance Directive(s) 12/16/2020 8:43 AM Advance Directive(s) 12/15/2020 1:00 PM Advance Directive(s) 10/24/2020 10:04 AM Advance Directive(s) 10/04/2020 4:19 PM Advance Directive Response Recorded Date/ Time Advance Directives No April 30, 2018 4:07pm Hospital Course Note HNO ID: [id number] Author: Douglas Torrez Service: General Surgery Author [...] (more content not included)... 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 Note HNO ID: [id number] Author: Devonte Zurita Service: Anesthesiology Author Type: Nurse Workers Compensation Manager Type: Anesthesia Procedure Notes Filed: 10/24/2020 2:26 [...] October 24, 2020 TIME: 2:26 PM CSN: [id number] Note HNO ID: [id number] Author: Douglas Torrez Service: General Surgery Author Type: Physician Type: Brief Op Note Filed: 10/24/2020 4:36 PM Note Text: BRIEF OPERATIVE NOTE [facility] LOG ID: [id number] SURGERY/PROCEDURE DATE: 10/24/2020 INCISION/PROCEDURE START TIME: 2:28 PM INCISION CLOSE/PROCEDURE END TIME: 4:31 PM SURGEON(S) AND COTTON JAMMER(S): Surgeon(s) and Role: * Ena Murray - Primary * Jarad Clarke (Res) DO Steven - Resident - Assisting * Presley Torrez - Resident - Assisting No Additional Staff PROCEDURES AND ANESTHESIA: Procedure(s) and Anesthesia Type: * LAPAROSCOPIC GASTRIC RESTRICTIVE SURG W/ BYPASS AND TREVOR-EN-Y Procedure Findings Note HNO ID: [id number] Author: Devonte Zurita Service: Anesthesiology Author Type: Nurse Workers Compensation Manager Type: Anesthesia Procedure Notes Filed: 10/24/2020 2:25 PM Note Text: ANESTHESIOLOGY PROCEDURE NOTE Airway General Information Procedure Start Time/Medication Administration: 10/24/2020 2:14 PM Patient location during procedure: OR Timeout Performed Pre-procedure: timeout performed 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 Note HNO ID: [id number] Author: Devonte Zurita Service: Anesthesiology Author Type: Nurse Workers Compensation Manager Type: Anesthesia Procedure Notes Filed: 10/24/2020 2:26 [...] October 24, 2020 TIME: 2:26 PM CSN: [id number] Note HNO ID: [id number] Author: Douglas Torrez Service: General Surgery Author Type: Physician Type: Brief Op Note Filed: 10/24/2020 4:36 PM Note Text: BRIEF OPERATIVE NOTE [facility] LOG ID: [id number] SURGERY/PROCEDURE DATE: 10/24/2020 INCISION/PROCEDURE START TIME: 2:28 PM INCISION CLOSE/PROCEDURE END TIME: 4:31 PM SURGEON(S) AND COTTON JAMMER(S): Surgeon(s) and Role: * Ena Murray - Primary * Jarad Clarke (Any) DO Steven - Resident - Assisting * Presley Torrez - Resident - Assisting No Additional Staff PROCEDURES AND ANESTHESIA: Procedure(s) and Anesthesia Type: * LAPAROSCOPIC GASTRIC RESTRICTIVE SURG W/ BYPASS AND TREVOR-EN-Y Additional Source Comments INFORMATION SOURCE (unrecogn ized section and content) DATE CREATED AUTHOR 08/11/2020 [facility] DATE CREATED AUTHOR AUTHOR'S ORGANIZ ATION 10/18/2020 [facility] DATE CREATED AUTHOR AUTHOR'S ORGANIZ ATION 12/17/2020 [facility] DATE CREATED AUTHOR AUTHOR'S ORGANIZ ATION 04/16/2022 [facility] DATE CREATED AUTHOR AUTHOR'S ORGANIZ ATION 05/10/2022 [facility] DATE CREATED AUTHOR AUTHOR'S ORGANIZ ATION 12/26/2023 [facility] DATE CREATED AUTHOR AUTHOR'S ORGANIZ ATION 01/09/2024 [facility] DATE CREATED AUTHOR AUTHOR'S ORGANIZ ATION 01/26/2024 [facility] DATE CREATED AUTHOR AUTHOR'S ORGANIZ ATION 06/02/2024 [facility] Care Team (unrecognized sect ion and content) Early Childhood Education Instructor Relationship Specialty Start Date End Date Jose Ram III DO [address] [place] [address] PCP - General Family Practice 10/04/20 Early Childhood Education Instructor Relationship Specialty Start Date End Date Jose Ram III DO [address] [place] [address] PCP - General Family Practice 10/04/20 Team [...] or prosecute any alcohol or drug abuse patient.[facility] the event this information is protected by the Federal Confidentiality of Alcohol and Drug Abuse Patient Records regulations: The Federal rules restrict any use of the information to criminally investigate or prosecute any alcohol or drug abuse patient.[facility] Reason for Visit (unrecogniz ed [...] BE BASED ON THE PRIMARY CLINICAL RECORDS. [facility]. provides no warranty or guarantee of the accuracy or completeness of information in this document.
--- NOTE | 2024-06-10 07:44 | PM.CN ---
Consult Note: HPI Data of Consult Patient: known to practice within the last 3 years Consult date: 12/16/23 Requesting Physician: Miladys Vivas NP Primary Care Provider: PETEY BURNETT Consult Narrative Reason for consult: low back, bilateral lower extremity pain, neck pain/radiculopathy Narrative: this is a pleasant 38-year-old female who presents for evaluation of chronic neck and low back pain. continuing to report >50% improvement from prior bilateral L4-5 L5-S1 facet joint RFA, and prior TFESIs. patient currently on baclofen 10mg prn, lyrica 100mg TID, and prn Tylenol. cannot take nsaids due to hx of gastric bypass. Patient having intermittent sharp pressure pain to left low back and hip, increased pain with standing walking and weather changes, pain improved with sitting, lying, heat/ice. Pain at times 8/10. has engaged in provider guided HEP greater than 6 weeks without benefit, continues to engage in HEP as tolerated. cc:: CC: Miladys Vivas NP Review of Systems ROS Status of ROS 10 or more systems reviewed and unremarkable except as noted in history and below [facility] Medical History (Updated 06/10/24 @ 07:52 by Miladys Vivas NP) Change in bowel habits ?R19.4 - Change in bowel habit (ICD-10) Prediabetes ?R73.03 - Prediabetes (ICD-10) Obesity ?E66.9 - Obesity, unspecified (ICD-10) Obstructive hydronephrosis Migraines ?G43.909 - Migraine, unspecified, not intractable, without status migrainosus (ICD-10) Lipoma of back ?D17.1 - Benign lipomatous neoplasm of skin and subcutaneous tissue of trunk (ICD-10) Abdominal pain ?R10.9 - Unspecified abdominal pain (ICD-10) Dyssynergia ?R27.8 - Other lack of coordination (ICD-10) Depression ?F32.A - Depression, unspecified (ICD-10) Colon polyps ?K63.5 - Polyp of colon (ICD-10) Chronic constipation ?K59.09 - Other constipation (ICD-10) Asthma ?J45.909 - Unspecified asthma, uncomplicated (ICD-10) Hiatal hernia ?K44.9 - Diaphragmatic hernia without obstruction or gangrene (ICD-10) Fibromyalgia ?M79.7 - Fibromyalgia (ICD-10) Osteoarthritis ?M19.90 - Unspecified osteoarthritis, unspecified site (ICD-10) Low back pain ?M54.50 - Low back pain, unspecified (ICD-10) Anxiety ?F41.9 - Anxiety disorder, unspecified (ICD-10) Hypercholesterolemia ?E78.00 - Pure hypercholesterolemia, unspecified (ICD-10) Hypertension ?I10 - Essential (primary) hypertension (ICD-10) Surgical History H/O gastric bypass ?Z98.84 - Bariatric surgery status (ICD-10) S/P foot surgery, right ?Z98.890 - Other specified postprocedural states (ICD-10) S/P cholecystectomy ?Z90.49 - Acquired absence of other specified parts of digestive tract (ICD-10) S/P ?Z98.891 - History of uterine scar from previous surgery (ICD-10) Family History Other Family history of myocardial infarction Social History Within the past year, how often did you have a drink containing alcohol: 2-4 times a month Smoking status: Never smoker Non-prescribed substance use: denies use 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 Highest level of school completed/degree received: some college, no degree Meds Home Medications and Allergies Home Medications ?Medication ?Instructions ?Recorded ?Confirmed ?Type alprazolam 0.25 mg tablet (Xanax) 0.25 mg PO DAILY PRN anxiety 03/27/23 01/20/24 History baclofen 10 mg tablet 10 mg PO .hs PRN muscle spasm 03/27/23 01/20/24 History duloxetine 30 mg capsule,delayed 90 mg PO QDAY 03/27/23 01/20/24 History release propranolol 120 mg capsule,24 120 mg PO Q24H 03/27/23 01/20/24 History hr,extended release cariprazine 1.5 mg capsule 1.5 mg PO DAILY 08/09/23 01/20/24 History (Vraylar) ondansetron 4 mg disintegrating 4 mg PO DAILY PRN nausea and 08/09/23 01/20/24 History tablet vomiting rimegepant 75 mg disintegrating 75 mg PO DAILY PRN migraine 08/09/23 01/20/24 History tablet (Nurtec ODT) headache trazodone 50 mg tablet 50 mg PO DAILY 08/09/23 01/20/24 History pregabalin 75 mg capsule (Lyrica) 75 mg PO TID #90 caps 11/04/23 01/20/24 Rx Allergies Allergy/AdvReac Type Severity Reaction Status Date / Time latex Allergy Severe Rash Verified 01/20/24 07:40 amitriptyline AdvReac Mild Nausea Verified 01/20/24 07:40 NSAIDS (Non-Steroidal AdvReac Verified 01/20/24 07:40 Anti-Inflamma Exam Constitutional Documenting provider has reviewed patient's vital signs: yes Common normals: no apparent distress, oriented x3, healthy appearing, alert and well nourished General appearance: cooperative HENMA Common normals: normocephalic, hearing grossly normal bilaterally and moist oral mucous membranes Head and scalp: normocephalic Eye Common normals: PERRL Pupil: PERRL Neck & C-Spine Common normals: full ROM General: normal visual inspection Cervical spine: cervical ROM abnormal, pain with cervical ROM and cervical spine tenderness Other: positive spurlings decreased sensation in RUE strength 4/5 in RUE, 5/5 in LUE Chest Common normals: inspection of chest normal Respiratory Common normals: normal respiratory effort, no retractions and no use of accessory muscles Effort & inspection: able to speak in complete sentences Back & Pelvis Lumbar spine/lower back: lumbar ROM normal, pain with ROM and straight leg raise negative bilaterally Sacroiliac joints: SI joint(s) abnormal Other: left SIJ positive harshal(patricks), gaenslens, thigh thrust, compression test Extremity Common normals: normal to inspection and full ROM Neuro Common normals: oriented x3, CN's II-XII intact bilaterally, moves all extremities, no focal motor deficits, no sensory deficits noted and deep tendon reflexes 2+ bilaterally Sensorium/orientation: alert Motor exam: strength 5/5 throughout and no movement abnormalities noted Psych Common normals: mental status grossly normal, thought process normal, cooperative, affect normal, speech normal and activity/motor behavior normal Speech: normal speech Thought process: normal thought process Results Additional Findings Additional findings: If on a controlled substance or opioids, I have checked an [place]AR[place] report on this patient and there are no aberrancies noted in the prescribing history.??If on a controlled substance or opioid a drug screen was completed and reviewed within the last year, and if there has not been a drug screen completed we ordered one today to monitor higher risk, state monitored pain medication use. As part of providing excellent, safe, comprehensive care, the following was completed at our patient's visit: 1. A medication reconciliation and review to ensure accurate knowledge of current/active medications, including asking our patients to inform us about any [id number] medications or herbal remedies/nutritional supplements/alternative remedies. 2. A review to specifically ensure our patients have had annual screening for screening for depression, screening for tobacco use, and screening for unhealthy alcohol use. For concerning screenings had a discussion with the patient, provided patient education, and recommended follow-up with primary care provider when appropriate. If patient noted with a risk of falling, they received education on strength, gait, and balance training to prevent future risk of falling. Assessment and Plan Assessment and Plan (1) Sacroiliitis: (2) Cervical radiculopathy: (3) Cervical stenosis of spinal canal: (4) Lumbar spondylosis: (5) Lumbar spinal stenosis: Qualifiers: Neurogenic claudication status: with neurogenic claudication Qualified Code(s): M48.062 - Spinal stenosis, lumbar region with neurogenic claudication (6) Lumbar disc displacement without myelopathy: Plan continue current medications left sij injection under fluoroscopy, risks vs benefits reviewed continue HEP as tolerated f/u 2 weeks after injection
== END 2024-06-10 07:27 | disposition home or self-care (01) ==
LOC: PM 07:27
PROVIDERS: PCP Physician Assistant; Visit Provider Nurse Practitioner
DX: M46.1 Sacroiliitis, not elsewhere classified (principal); M54.12 Radiculopathy, cervical region; M48.02 Spinal stenosis, cervical region; M47.816 Spondylosis without myelopathy or radiculopathy, lumbar region; M48.062 Spinal stenosis, lumbar region with neurogenic claudication; M51.26 Other intervertebral disc displacement, lumbar region
CPT/HCPCS: G0463

== ENCOUNTER 2024-06-29 08:03 | Day surgery (SDC) | payer OTHER, SELFPAY ==
--- OUTSIDE RECORDS SUMMARY | 2024-06-29 08:08 | XMS_ITS | CCD ---
Author Organization [facility] CliniSymn Care Team Providers Care Triple Valve Tester Name Role Phone Jose Ram III Primary Care Physician [phone] Eyad ROSAS DO, Rolland R Primary Care [...] Kaiser Admitting Unavailable Zack [facility] Attending Unavailable Jose Ram Referring Unavailable Zack [facility] Attending Unavailable Zack [facility] Attending Unavailable Berta KOENIG, Aaliyah Arellano Attending Unavailable Berta KOENIG, Aaliyah Arellano Attending Unavailable Berta KOENIG, Aaliyah Arellano Attending Unavailable Giedraitis , Andrius Eileen [...] Cutaneous eruption (morphologic abnormality), Other: See Comments [facility] (15 sources) SUMAtriptan; Translations: [sumatriptan] Drug Allergy 7 Other: See Comments [facility] (1 source) Amitriptyline Drug Allergy [facility] (1 source) NSAIDs Drug allergy (disorder) [facility] (1 source) Plasmin Drug Allergy [facility] (3 sources) Adhesive bandage; Translations: [Adhesive Bandage] Propensity to adverse reactions to substance [facility] (1 source) SUMAtriptan Drug Allergy [address] [facility] Repository [...] Ordered Start: 10-28-2023 take 1 capsule by [facility] once daily in the morning Strattera [...] Daily, # 50 tab(s), Refills(s) 1, Pharmacy: [email or web address], 155, cm, 01/25/21 14:00:00 EDT, Height/Length [...] Pain, # 45 cap(s), Refills(s) 4, Pharmacy: [email or web address], 155, cm, 03/01/22 15:01:00 EDT, Height/Length [...] Start: 12-28-2020 take 1 capsule by mo [facility] once daily propranolol ER (INDERAL LA) 120 [...] on above: Take 1 capsule by mo [facility] three times daily for 14 days. Lactobacillus acidophilus (2 sources) Lactobacillus acidophilus (PROBIOTIC ORAL) Take by mouth. 0 Active Comment on above: Take by mouth. levonorgestrel 0.136444 mg/hr intrauterine system (2 sources) Progestin, Progestin-containing [...] on above: Take 1,000 mcg by mo [facility] once daily. Problems Active Problems Problem Classification [...] 10-28-2023 Chronic Other aftercare (1 source) Other director long term care (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 therapy; Translations: [OTH RETIREMENT CURRENT DRUG THERAPY] Onset: 2 Episodic Other [...] Martinez When: Only if needed Where: [address] [place] [address]- Medications What How Much When [...] choosing us for your care. Normal [facility] General Surgery Office/Clini c Noteon 01-07-2024 [...] KOENIG, MASTER Martinez Only if needed [address] [place] [address]- Additional Instructions: Problem List/Past Medical [...] (COVID-19) mRNA-1273 vaccine 09/28/2020 Recorded 2023-10-28: TPV20 [facility] Comment on above: Result Comment: Elec tronically Signed By: ANTONELLA KOENIG, Zack Tamezbr\Date and Time Signed: 01/07/24 16:13 EDT Operative Reporton Operative Report [id number]#1.00TIFF Normal [facility] Pathology Noteon 12-27-2023 Pathology Note [id number]#1.00TIFF Normal [facility] Varun 12-25-2023 L Specimen: [id number] eceived: 12/25/23 Status: SOUT Req Num: [id number] Spec Type: Surgical Subm Dr: Zack Kaiser MD FACS Tissues: A Lipoma (LT BACK) Procedures: HE, Gross/Micro L3 Age/ Patient Sex Location Account Attending Physician Nica Escamilla 38/F LABELL [id number] Zack Kaiser MD FACS SPEC NUM: [id number] RECD: 12/25/23 STATUS: LAITH REQ NUM: [id number] JAVI: 12/25/[address]: Zack Kaiser MD FACS ENTERED: 12/25/23 [facility] DR: Yuriy Magana SPEC TYPE: [...] no obvious areas of hemorrhage or necrosis. [employer] sections are submitted A1. RG Clinical history: Lipoma, path pending CPT Codes 72575 -------- -------- Specimen: [id number] Received: 12/25/23 Status: LAITH Mejia Num: [id number] Spec Type: Surgical Subm Dr: Zack Kaiser MD FACS Tissues: A Lipoma (LT BACK) Procedures: Eric MAHAJAN/Margy L3 -------- Patient: Nica Escamilla [id number] (Continued) -------- Signed (signature on file) Darren Dias MD 12/26/23 1322 Normal [facility] Consent for Procedure/Surger bert 11-12-2023 Consent for Procedure/Surgery [id number]#1.00TIFF Normal [facility] Consent for Procedure/Surgery [id number]#1.00TIFF Normal [facility] Ambulatory Visit Summaryon 0 11-11-2023 Ambulatory [...] for choosing us for your care. Ailyn [facility] Physician Referralon 024 Physician Referral [id number]#1.00TIFF Normal [facility] PREG HCG QUALon 04-20-2022 , QUAL Negative Normal NEGATIVE [facility] Comment on above: Performed By: #### P REG #### [facility] [address] [address] [address] Refugio Apple CNOVon 04-12-2022 CNOV Office Visit (PLASMN ) NICA ESCAMILLA ([id number]) 1985 F Date Time Provider Department 04/12/22 [...] times d (more content not included)... Normal [facility] PREG HCG QUALon 04-06-2022 , QUAL Negative Normal NEGATIVE [facility] Comment on above: Performed By: #### P REG #### [facility] [address] [place] [address] Dr. Refugio Apple CHEMISTRYOrdered By: SYSTEM SYSTEM [...] CNOV Office Visit (GENSSM ) NICA ESCAMILLA ([id number]) 1985 F Date Time Provider Department 11/10/21 [...] mcg, Iron 45-60 mg and calcium citrate 7995-1681 mg/day PHYSICAL EXAMINATION: Weight loss: BMI 23.2 [...] Ena Murray MD Referring Provider: ENA MURRAY [[id number]] Allergies As of Date: 11/10/2021 Noted Allergy [...] JUANITA (a (more content not included)... Normal [facility] MRI CSPINE WO CONon 11-10-19 MRI CSPINE [...] by: MANOHAR ALONZO Date: 2021-11-10 14:28 [facility] Office Visit (CXD290 ) NICA ESCAMILLA ([id number]) 1985 F Date Time Provider Department 06/15/21 11:30 AM ENA MURRAY [id number] During your visit today, we recorded the [...] call directly to schedule upper endoscopy at [phone]. Please leave a message if you receive the voicemail with your name, birthday, and reason for calling. Please expect a call or Patient Access Solutionst message with appointment information and instructions. What [...] is especially important if you have had vcvgc-cqscmedyu-ullan surgery in the past. How is an [...] minutes for (more content not included)... Normal [facility] HISTORY PHYSICALon HISTORY PHYSICAL HNO ID: [id number] Author: Kalpana Otero MD Service: General Surgery [...] DATE: December 16, 2020 TIME: 9:33 AM [facility] NURSING PROGon 12-16-2020 NURSING PROG HNO ID: [id number] Author: Yashira LauRn) DEEPTHI Nova Service: Nursing [...] None Electronically Signed By: Yashira Nova RN [facility] PT EDon 12-16-2020 PT ED HNO ID: [id number] Author: Manohar LauRn) DEEPTHI Conn Service: Nursing [...] None Electronically Signed By: Manohar Conn RN [facility] NURSING PROGon 10-25-2020 NURSING PROG HNO ID: [id number] Author: Diego Abad RN Service: ? Author Type: Registered Nurse Type: Nursing Progress Note Filed: 10/25/2020 2:09 AM Note Text: Nursing Progress Note Patient Name: Nica Escamilla Patient Location: [place] [address] [address] Daily Note: 2000: Assessment complete see NPR. Pt present w/ nausea Zofran given. Pain 8/10 PRN pain med given. 0100: Nausea concerned by pt. Paged for second like prevention. 0130: Compazine ordered/given. No cough or SOB at this time. Lap sites intact no bruising. No gas passed yet. This note was completed by: Diego Abad [facility] PLAN OF CAREon 10-25-2020 PLAN OF CARE HNO ID: [id number] Author: Davina Bonilla (Kirax) Service: Pharmacy Author Type: ? Type: Plan of Care Filed: 10/25/2020 2:56 PM Note Text: Pharmacy Discharge Medication Service: This patient has elected to receive their discharge prescriptions through the [facility] Bedside Prescription Delivery program. The prescriptions are currently being processed. A follow-up note will be entered once the prescriptions have been filled and delivered to the patient. Please contact me with any questions or updates to the patient's discharge medications. Davina Bonilla (Kirax) DCT Contact Info: [phone] [facility] PLAN OF CARE HNO ID: [id number] Author: Davina Bonilla (Kirax) Service: Pharmacy Author Type: ? 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 Patient to use [facility] Bedside Delivery - YES Insurance Information as follows: 2. Insurance card on file - YES 3. Credit card for payment - N/A [facility] PLAN OF CARE HNO ID: [id number] Author: Davina Bonilla (Kirax) Service: Pharmacy Author Type: ? Type: Plan [...] or your Primary Care Provider. Davina Bonilla (Kirax) PAGER: [phone] October 25, 2020 2:56 PM [facility] PROGRESSon 10-25-2020 PROGRESS HNO ID: [id number] Author: Presley Torrez Service: General Surgery Author [...] October 25, 2020 TIME: 7:02 AM Normal [facility] PROGRESS HNO ID: [id number] Author: Juliet Lilly Service: General Surgery Author [...] care Juliet Lilly MD General Surgery PGY1 [facility] PT EDon 10-25-2020 PT ED HNO ID: [id number] Author: Geoff Hector Service: Nutrition Therapy Author Type: Guest Experience Specialist Type: Patient Education Filed: 10/25/2020 12:04 PM [...] October 25, 2020 TIME: 12:04 PM PAGER: [phone] [facility] ANES POSTPROC EVALon 021 ANES POSTPROC EVAL HNO ID: [id number] Author: Brandon Stoddard Service: Anesthesiology Author Type: Anesthesiologist Type: Anesthesia Postprocedure Evaluation Filed: 10/24/2020 4:58 PM Note Text: POST ANESTHESIA EVALUATION NOTE : 1985 Procedure Summary Date: 10/24/20 Room / Location: OR05 / [facility] OR Anesthesia Start: 1402 Anesthesia Stop: 1643 Procedure: LAPAROSCOPIC GASTRIC RESTRICTIVE SURG W/ BYPASS AND TREVOR-EN-Y Morbid obesity (HCC) (Morbid obesity (HCC) [E66.01]) Surgeons: Ena Murray Responsible Provider: Branodn Stoddard Anesthesia Type: general ASA Status: 3 [...] October 24, 2020 TIME: 4:58 PM CSN: [id number] [facility] ANES PRE-OPon 10-24-2020 ANES PRE-OP HNO ID: [id number] Author: Colin Archer Service: Anesthesiology Author Type: [...] Surgery/Procedure. SIGNATURE: Colin Archer MD PATIENT NAME: Niac Escamilla DATE: October 24, 2020 TIME: 1:18 PM CSN: [id number] [facility] NURSING PROGon 10-24-2020 NURSING PROG HNO ID: [id number] Author: Sridevi LauRn) DEEPTHI Triana Service: Nursing Author Type: Registered Nurse Type: Nursing Progress Note Filed: 10/24/2020 6:56 PM Note Text: Nursing Progress Note Patient Name: Nica Escamilla Patient Location: [place] [address] [address] Transfer Note: Patient transferred into room/unit PK325 in stable condition. Actions taken: No futher actions taken at this time. at bedside. Will continue to monitor and check with patient. This note was completed by: Sridevi Triana RN [facility] NURSING PROG HNO ID: [id number] Author: Gege LauRn) DEEPTHI Kenney Service: Nursing Author Type: Registered Nurse Type: Nursing Progress Note Filed: 10/24/2020 1:38 PM Note Text: PATIENT EDUCATION TOPIC: PROCEDURE / SURGERY: Pre-op Teaching: Protocols PATIENT NAME: Nica Escamilla PATIENT LOCATION: [place] READINESS TO LEARN COGNITIVE ABILITY: Alert and [...] None Electronically Signed By: Gege Kenney RN [facility] OPERATIVE NOon 10-24-2020 OPERATIVE NO HNO ID: [id number] Author: Ena Murray Service: General Surgery Author Type: Physician Type: Operative Report Filed: 10/26/2020 11:07 AM Note Text: [facility] - Operative Report NICA ESCAMILLA : 1985 AGE: 35. SEX: F PATIENT TYPE: I HOSP SV: [facility] LOCATION: [facility] ATTENDING PHYSICIAN: Ena Murray MD CSN NUMBER: [id number] DATE OF SURGERY/PROCEDURE: 10/24/2020 INCISION/PROCEDURE START TIME: 2:28 PM INCISION CLOSE/PROCEDURE END TIME: 4:31 PM PREOPERATIVE DIAGNOSIS: Morbid obesity, BMI of 42. POSTOPERATIVE DIAGNOSIS: 1. Morbid obesity. 2. Hiatal hernia. SURGEON: Ena Murray MD [employer] ADMINISTRATOR: Presley Torrez MD. SURGERY/PROCEDURE: 1. Laparoscopic repair [...] The posterior cruroplasty was completed using 1 hjzpyl-wc-qsfik stitch using silk to tighten the sharri. [...] Torrez assisted in the absence of qualified hvac technician residential help. He created the pouch and created the jejunojejunostomy. Ena Murray MD TA:[id number] Normal [facility] Confirm Blood Typeon 021 ABO/RH(D) Positive Normal [facility] Comment on above: Performed By: #### C ONABO ####[facility] [place], [place] [phone] HISTORY PHYSICALon HISTORY PHYSICAL HNO ID: [id number] Author: Amanda Shane (Pa) Service: ? Author Type: Physician Plan Coordinator Type: HANDP Filed: 10/17/2020 2:58 PM Note [...] fevers. Neuro: No history of TIA's, stroke, [employer]ODU[employer] tumor, impaired sensorium, hemiplegia, paraplegia or quadraplegia. No neurological symptoms or problems. Respiratory: asthma, uses rescue about once every few weeks; no current resp sx. Had acute bronchitis last Fall, flared asthma for a while but is better now. Has environmental allergies Cardiovascular: No history of HTN requiring medication, no history of angina, CHF, LA, cardiac surgery or stents. Denies rest pain, gangrene or revascularization/amputation for PVD. No history of cardiovascular symptoms or problems. GI: Positive for GERD, no other GI sx. : No history of dysuria, frequency or incontinence,, stones or chronic kidney disease INTAKE MAN: Negative for abnormal vaginal bleeding, abnormal vaginal [...] 2020 TIME: 2:42 PM PAGER/CONTACT #: Normal [facility] Type and SCR (30D)on 021 ABO/RH(D) Positive Normal [facility] Comment on above: Performed By: #### T SCR30 ####[facility] [place], [place] [phone] HOSPon 09-27-2020 [facility] Patient:Nica Escamilla MRN: Height:5' 0 (1.524 m) [...] 44.1 % 10/17/2020 46.0 36.0 Progress Notes ([facility]): Marcella Saldana RN 10/13/2020 2:32 [...] Strength Tylenol. 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 I have also discussed medical [...] on recommendations of the [place] [employer]. Although we will perform appropriate precautions to [...] patient. Ena Murray MD Previous Version Normal [facility] HEPATITIS B SURFACE AB IMMUN ITY, QNon 08-11-2020 HEPATITIS B SURFACE AB IMMUNITY, QN >1000 Normal > OR = 10 [facility] Comment on above: Result Comment: Patient has immunity to hepatitis B virus. For additional information, please refer to http://education.CyberPatrol.Sribu/faq/PZW263 (This link is being provided for informational/ educational purposes only). Performed By: #### 8 475 #### [facility]-[address], [address] [place] [id number] Hotel Controller: Sixto Chandler MD Vital Signs Date Time Vital Sign Value Performing Clinician Facility 10-16-2022 12:53-0500 Diastolic blood pressure 80 mm[Hg] Otis Burch [facility] 10-16-2022 12:53-0500 Heart rate 55 /min Otis Marcin [facility] 10-16-2022 12:53-0500 Mean blood pressure 89 mm[Hg] Otis Marcin [facility] 10-16-2022 12:53-0500 Respiratory rate 18 /min Otis Marcin [facility] 10-16-2022 12:53-0500 Systolic blood pressure 108 mm[Hg] Otis Marcin [facility] 08-28-2022 08:52-0500 Heart rate 70 /min Otis Marcin [facility] 08-28-2022 08:52-0500 SaO2% (BldA) [Mass fraction] 100 % Otis Marcin [facility] 08-28-2022 08:52-0500 Respiratory rate 16 /min Otis Marcin [facility] 08-28-2022 08:52-0500 Diastolic blood pressure 80 mm[Hg] Otis Marcin [facility] 08-28-2022 08:52-0500 Mean blood pressure 93 mm[Hg] Otis Marcin [facility] 08-28-2022 08:52-0500 Systolic blood pressure 121 mm[Hg] Otis Marcin [facility] 08-28-2022 08:46-0500 Heart rate 70 /min Otis Marcin [facility] 08-28-2022 08:46-0500 SaO2% (BldA) [Mass fraction] 100 % Otis Marcin [facility] 08-28-2022 08:46-0500 Body temperature 97.52 [degF] Otis Marcin [facility] 08-28-2022 08:46-0500 Diastolic blood pressure 69 mm[Hg] Otis Marcin [facility] 08-28-2022 08:46-0500 Mean blood pressure 80 mm[Hg] Otis Marcin [facility] 08-28-2022 08:46-0500 Systolic blood pressure 104 mm[Hg] Otis Marcin [facility] 08-28-2022 08:46-0500 Respiratory rate 16 /min Otis Marcin [facility] 08-28-2022 08:41-0500 Diastolic blood pressure 64 mm[Hg] Otis Marcin [facility] 08-28-2022 08:41-0500 Systolic blood pressure 102 mm[Hg] Otis Marcin [facility] 08-28-2022 08:40-0500 Heart rate 71 /min Otis Marcin [facility] 08-28-2022 08:40-0500 Respiratory rate 12 /min Otis Marcin [facility] 08-28-2022 08:40-0500 SaO2% (BldA) [Mass fraction] 100 % Otis Marcin [facility] 08-28-2022 08:35-0500 Respiratory rate 12 /min Otis Marcin [facility] 08-28-2022 08:30-0500 Respiratory rate 12 /min Otis Marcin [facility] 08-28-2022 07:17-0500 Mean blood pressure 78 mm[Hg] Otis Marcin [facility] 08-28-2022 07:17-0500 Respiratory rate 16 /min Otis Marcin [facility] 08-28-2022 07:17-0500 Body temperature 98.24 [degF] Otis Burch [facility] 04-12-2022 14:47-0400 Body height 152.4 cm Lazara Vogel MD Work Phone: [facility] 04-12-2022 14:47-0400 Body temperature 98.91 [degF] Lazara Vogel MD Work Phone: [facility] 04-12-2022 14:47-0400 Body weight 55.52 kg Lazara Vogel MD Work Phone: [facility] 04-12-2022 14:47-0400 Diastolic blood pressure 92 mm[Hg] Lazara Vogel MD Work Phone: [facility] 04-12-2022 14:47-0400 Heart rate 65 /min Lazara Vgoel MD Work Phone: [facility] 04-12-2022 14:47-0400 Systolic blood pressure 140 mm[Hg] Lazara Vogel MD Work Phone: [facility] 03-01-2022 14:59-0400 Diastolic blood pressure 86 mm[Hg] Mixon SALAM [facility] 03-01-2022 14:59-0400 Heart rate 52 /min Mixon SALAM [facility] 03-01-2022 14:59-0400 Systolic blood pressure 130 mm[Hg] Mixon SALAM [facility] Encounters Encounter Date Encounter [...] End: 01-07-2024 [facility] Start: 01-06-2024 End: 01-07-2024 ambulatory Aaliyah Hampton MD Facility: [place] Start: 01-03-2024 ambulatory Zack [facility] Facility:[facility] [place] Start: 12-25-2023 End: 12-25-2023 ambulatory Zack Kaiser Facility:[facility] Start: 12-25-2023 End: 12-26-2023 ambulatory Zack KAISER [facility] Work Phone: Start: 12-25-2023 End: 12-25-2023 Departed Referred MD Zack Kaiser Work Phone: [facility] Start: 12-16-2023 End: 12-17-2023 ambulatory Aaliyah Hampton MD Facility:[facility] [place] Start: 12-09-2023 End: 12-10-2023 ambulatory Aaliyah Hampton MD Facility:[facility] [place] Start: 12-02-2023 End: 12-03-2023 ambulatory Aaliyah Hampton MD Facility:[facility] [place] Start: 11-11-2023 End: 11-12-2023 ambulatory Zack KAISER Facility: [place] Start: 11-11-2023 End: 11-26-2023 Pre-admission assessment Zack K[facility]IS[facility] Start: 11-04-2023 End: 11-05-2023 ambulatory Aaliyah Hampton MD Facility: [place] Start: 10-21-2023 ambulatory Zack [facility]ISER Facility:[facility] Start: 09-30-2023 End: 10-01-2023 [facility]ulatory [facility] Start: 04-29-2023 End: 04-30-2023 ambulatory Andjeromeus Tacoautandrzej Vinsonitis Facility: [place] Start: 04-15-2023 End: 04-16-2023 ambulatory Aaliyah Hampton MD Facility: [place] Start: 04-01-2023 End: 04-02-2023 ambulatory Aaliyah Vinsonitis Facility:[facility] Start: 03-25-2023 End: 03-26-2023 ambulatory [facility] Start: 10-16-2022 End: 10-16-2022 Pain Management Otis Burch [facility] Start: 08-28-2022 End: 08-28-2022 Pain Management Otis Burch [facility] Start: 05-04-2022 End: 05-05-[address] DOCTOR [...] End: 03-01-2022 Patient encounter procedure Oral DIETZ [facility] Start: 11-10-2021 End: 11-11-2021 [...] Comment on above: Performed By: #### [id number] ####[facility] [id number] [place] [phone] Start: 05-09-2020 Adult depression screening assessment Lazara Vogel MD Work Phone: Start: 04-18-2020 Colonoscopy Oral DIETZ Start: 04-18-2020 Esophagogastroduodenoscopy Oral DIETZ section Oral DIETZ section Zack Albarado Cholecystectomy Oral DIETZ Fasciotomy of foot Zack HOFFMAN Trevor-en-Y gastrojejunostomy Zack [facility]ISER Plan of Treatment Date Care Activity Detail Author Start: 05-17-2022 Influenza vaccination INFLUENZA (#1) [facility] Start: 05-09-2021 Adult depression screening assessment DEPRESSION SCREENING [facility] Start: 04-10-2021 COVID-19 VACCINE (3 - Booster for Moderna series) COVID-19 VACCINE (3 - Booster for Moderna series) [facility] Start: 2013 HPV TESTING HPV TESTING [facility] Start: 02-22-2004 PAP TESTING PAP TESTING [facility] Start: 2002 Urine microalbumin profile DTAP,TDAP,TD (1 - Tdap) [facility] Start: 2001 ANNUAL PCP TEAM YEAST CAKE CUTTER 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 VISIT ANNUAL PCP TEAM CHRONIC DISEASE VISIT [facility] Start: 2001 BP CONTROLLED (<130/80) BP CONTROLLE D (<130/80) [facility] Start: 2001 HEPATITIS C SCREENING HEPATITIS C SC REENING [facility] Start: 2001 HIV SCREENING HIV SCREENING [facility] Start: 2001 SPIROMETRY SPIROMETRY [facility] Start: 1989 PNEUMOCOCCAL (1 - PCV) PNEUMOCOCCAL (1 - PCV) [facility] Immunizations Immunization Date Immunization Notes Care Provider Fa victor hugo 11-11-2020 SARS-CoV-2 (COVID-19 ) mRNA-1273 vaccine Zack [facility] Comment on above: Result Comment: 2023: TPV20 09-28-2020 COVID-19 vaccine, fu ll dose (MODERNA) Lazara Vogel MD Work Phone: [facility] Comment on above: Result Comment: 2023: TPV20 07-01-2020 influenza, injectabl e, quadrivalent, preservative free Lazara Vogel MD Work Phone: [facility] 06-17-2020 influenza virus vaccine, unspecified formulation Lazara Vogel MD Work Phone: [facility] NEGATED: Highlighted row has not occurred!11-11-2023 influenza virus vaccine, unspecified formulation Zack [facility] Payers Date Payer Category Payer Self-pay [id number] 2022 Medicaid [id number] 2022 Private Health Insurance 2022 Unknown 2022 Unknown [id number] 2018 Medicaid [facility] MEDICAID [facility] COMMUNITY PLAN MEDICAID [id number] 2018-Present [phone] [address] [place] [address] Medicaid [id number]. [id number] 1983 Unknown [id number] 2.0.1.494887.3.579.2. 593 1983 Unknown [id number] 20.1.260373.3.579.2. 593 1983 Unknown [id number] 11.01.830.1.714722.3.579.2. 593 1983 Unknown [id number] 20.1.806719.3.579.2. 593 1983 Unknown [id number] 2..1.045196.3.579.2. 593 1983 Unknown [id number] 840.1.723125.3.579.2. 593 1983 Unknown [id number] 840.1.820554.3.579.2. 593 1983 Unknown [id number] 840.1.895720.3.579.2. 727 1983 Unknown [id number] 840.1.672633.3.579.2. 727 1983 Unknown [id number] 840.1.084629.3.579.2. 727 1983 Unknown [id number] 2840.1.930479.3.579.2. 1983 Unknown [id number] 2.16.840.1.832831.3.579.2. 1983 Unknown [id number] 2.16.840.1.489867.3.579.2. 1983 Unknown [id number] 2.16.840.1.256444.3.579.2. 1983 Unknown [id number] 2.16840.1.905287.3.579.2. 1983 Unknown [id number] 2.16840.1.496671.3.579.2. 1983 Unknown [id number] 2.16840.1.580749.3.579.2. 1983 Unknown [id number] 2.16840.1.808144.3.579.2. 1983 Unknown [id number] 2.16840.1.766870.3.579.2. 1983 Unknown [id number] 2.16840.1.000062.3.579.2. 1983 Unknown [id number] 2.16840.1.697364.3.579.2. 1983 Unknown [id number] 2.840.1.711655.3.579.2. 1258 1983 Unknown [id number] 2.16840.1.988606.3.579.2. 1258 1983 Unknown [id number] 2.16840.1.537523.3.579.2. 1259 1959 Unknown [id number] Unknown [id number] 2.16840.1.902985.3.579.2. 531 Social History Date Type Detail Facility Start: 03-01-2022 End: 11-11-2023 Tobacco smoking status Never smoked tobacco (finding) [facility] Tobacco smoking status Never Milind [facility] Sex Assigned At Female [facility] Start: 06-27-2017 Tobacco use and exposure Smokeless tobacco non-user [facility] Start: 04-12-2022 Alcohol intake Current drinke r of alcohol (finding) [facility] Start: 04-12-2022 Alcohol intake [facility] Start: 01-05-2020 History SDOH Alcohol Frequency 3 [facility] Start: 01-05-2020 History SDOH Alcohol Std Drinks 1 [facility] Start: 10-17-2020 History SDOH Alcohol Comment once a month, 1 drink [facility] Start: 1985 Sex Assigned At Not on file C [facility] Start: 04-01-2022 End: 04-11-2022 Exposure to SARS-CoV-2 (event) Not sure [facility] Start: 1985 Sex Assigned At Female F [facility] Functional Status Date Assessment Result Facility 10-16-2022 Functional Status N/A [facility] 08-28-2022 Functional Status N/A [facility] Clinical Notes 05-04-2020 to 12-27-2023 Note Date & Type Note Facility 12-27-2023 Hospital Discharge instructions Follow Up Care 12/27/2023 13:04:11 With:ANTONELLA KOENIG, MASTER Martinez Address: [address] [place], [place] [id number]- When: only if needed [facility] [place] 11-11-2023 Note Chief Complaint [...] Brother. Colon ca (more content not included)... [facility] Comment on above: Result Comment: Elec [...] concerns. Patient agrees with plan of care. [facility]07-28-2022 NoteHNO ID: [id number] Author: ST Rick Service: ? Author Type: Network Technical Analyst Type: Progress Notes Filed: 04/12/2022 3:50 PM Note Text: DATE OF PHOTOS: 04/12/2022 Body Part: Breasts, Abdomen, Leg(s) and Arms ST Rick April 12, 2022 3:49 [facility]07-28-2022 History of Present illness Narrative* ST Rick - 04/12/2022 3:49 PM EDT DATE OF PHOTOS: 04/12/2022 Body Part: Breasts, Abdomen, Leg(s) and Arms ST Rick April 12, 2022 3:49 PM [facility] NoteHNO ID: [id number] Author: Lazara Vogel MD Service: ? Author [...] this visit. ALLERGIES A (more content not included)...[facility]07-27-2022 History of Present illness Narrative* Lazara Vogel [...] Past Histories independently gathered by the clinical personal support worker and the remaining scribed note [...] weeks. Lazara Vogel MD [facility] Evaluation + Plan note Diagnostic Tests [...] Level 04/25/21 * Vitamin B12 Level 04/25/21 [facility]02-25-2022 NoteHNO ID: [id number] Author: Ena Murray MD Service: ? Author [...] mcg, Iron 45-60 mg and calcium citrate 5360-1443 mg/day PHYSICAL EXAMINATION: Weight loss: BMI 23.2 [...] ? Doing great ? EGD Ena Murray [facility]09-30-2021 NoteHNO ID: [id number] Author: Ena Murray MD Service: ? Author [...] mcg, Iron 45-60 mg and calcium citrate 5283-0250 mg/day ? COMPLETE REVIEW OF SYSTEMS Constitutional--Negative [...] which included preparing to see the patient, [id number] patient care and completing clinical documentation.[facility]08-10-2021 Evaluation + Plan note Future Scheduled Tests Laboratory* Copper Level 04/25/21 * Zinc Level 04/25/21 * Vitamin A Level 04/25/21 * Vitamin B1 04/25/21 * Vitamin B6 Lvl 04/25/21 * Vitamin D 25 Hydroxy 04/25/21 * Ferritin 04/25/21 * Folate Level 04/25/21 * Iron Level 04/25/21 * Magnesium Level 04/25/21 * Vitamin B12 Level 04/25/21 [facility] [id number] History of Past illness Narrative* Problem Noted Date Resolved Date Morbid obesity 05/04/2020 01/23/2021 documented as of this encounter (statuses as of 04/12/2022) [facility]08-19-2020 History of Past illness Narrative* Problem Noted Date Resolved Date Morbid obesity 05/04/2020 01/23/2021 documented as of this encounter (statuses as of 04/12/2022) [facility] Future Appointments Appointment Date:09/24/2022 10:30:00 AM Scheduled Provider:Sridevi Goetz PA-C Location:[place].[facility] Appointment Type:Pain Management - Follow Up ([facility]) [facility] Diagnosis Hx of bariatric surgery- Primary Bariatric surgery status Excess skin [facility]No assessment information 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 Note HNO ID: [id number] Author: Devonte Zurita Service: Anesthesiology Author Type: Nurse Environmental Engineering Technician Type: Anesthesia Procedure Notes Filed: 10/24/2020 2:26 [...] October 24, 2020 TIME: 2:26 PM CSN: [id number] Note HNO ID: [id number] Author: Douglas Torrez Service: General Surgery Author Type: Physician Type: Brief Op Note Filed: 10/24/2020 4:36 PM Note Text: BRIEF OPERATIVE NOTE [facility] LOG ID: [id number] SURGERY/PROCEDURE DATE: 10/24/2020 INCISION/PROCEDURE START TIME: 2:28 PM INCISION CLOSE/PROCEDURE END TIME: 4:31 PM SURGEON(S) AND LINUX SOLARIS ADMINISTRATOR(S): Surgeon(s) and Role: * Ena Murray - Primary * Jarad Clarke (Res) DO Steven - Resident - Assisting * Presley Torrez - Resident - Assisting No Additional Staff PROCEDURES AND ANESTHESIA: Procedure(s) and Anesthesia Type: * LAPAROSCOPIC GASTRIC RESTRICTIVE SURG W/ BYPASS AND TREVOR-EN-Y Procedure Findings Note HNO ID: [id number] Author: Devonte Zurita Service: Anesthesiology Author Type: Nurse Environmental Engineering Technician Type: Anesthesia Procedure Notes Filed: 10/24/2020 2:25 PM Note Text: ANESTHESIOLOGY PROCEDURE NOTE Airway General Information Procedure Start Time/Medication Administration: 10/24/2020 2:14 PM Patient location during procedure: OR Timeout Performed Pre-procedure: timeout performed 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 Note HNO ID: [id number] Author: Devonte Zurita Service: Anesthesiology Author Type: Nurse Environmental Engineering Technician Type: Anesthesia Procedure Notes Filed: 10/24/2020 2:26 [...] October 24, 2020 TIME: 2:26 PM CSN: [id number] Note HNO ID: [id number] Author: Douglas Torrez Service: General Surgery Author Type: Physician Type: Brief Op Note Filed: 10/24/2020 4:36 PM Note Text: BRIEF OPERATIVE NOTE [facility] LOG ID: [id number] SURGERY/PROCEDURE DATE: 10/24/2020 INCISION/PROCEDURE START TIME: 2:28 PM INCISION CLOSE/PROCEDURE END TIME: 4:31 PM SURGEON(S) AND LINUX SOLARIS ADMINISTRATOR(S): Surgeon(s) and Role: * Ena Murray - [...] DATE CREATED AUTHOR AUTHOR'S ORGANIZ ATION 10/18/2020 [facility] DATE CREATED AUTHOR AUTHOR'S ORGANIZ ATION 12/17/2020 [facility] DATE CREATED AUTHOR AUTHOR'S ORGANIZ ATION 04/16/2022 [facility] DATE CREATED AUTHOR AUTHOR'S ORGANIZ ATION 05/10/2022 [facility] DATE CREATED AUTHOR AUTHOR'S ORGANIZ ATION 12/26/2023 [facility] DATE CREATED AUTHOR AUTHOR'S ORGANIZ ATION 01/09/2024 [facility] DATE CREATED AUTHOR AUTHOR'S ORGANIZ ATION 01/26/2024 [facility] DATE CREATED AUTHOR AUTHOR'S ORGANIZ ATION 06/02/2024 [facility] Care Team (unrecognized sect ion and content) Triple Valve Tester Relationship Specialty Start Date End Date Jose Ram III DO [address] [place] [address] PCP - General Family Practice 10/04/20 Triple Valve Tester Relationship Specialty Start Date End Date Jose Ram III DO [address] [place] [address] PCP - General Family Practice 10/04/20 Team [...] or prosecute any alcohol or drug abuse patient.[facility] the event this information is protected by the Federal Confidentiality of Alcohol and Drug Abuse Patient Records regulations: The Federal rules restrict any use of the information to criminally investigate or prosecute any alcohol or drug abuse patient.[facility] Reason for Visit (unrecogniz ed section [...] BE BASED ON THE PRIMARY CLINICAL RECORDS. [facility]. provides no warranty or guarantee of the accuracy or completeness of information in this document.
[2024-06-29 08:16] VITALS: BP 137/89; PULSE 78; TEMP 36.6; O2SAT 100
[2024-06-29 08:31] LABS: HCG Qualitative NEGATIVE (NEGATIVE); Internal Control Within Normal Limits
[2024-06-29 09:11] VITALS: BP 131/87; BP 137/88; PULSE 69; PULSE 72; O2SAT 94; O2SAT 96
[2024-06-29] MEDS: IOHEXOL 240 MG/ML - 10 ML VIAL 24 MG INJ (09:11)
[2024-06-29] MEDS: BUPIVACAINE HCL 0.25% PF 25 MG/10 ML VIAL 2 ML INJ (09:11)
[2024-06-29] MEDS: LIDOCAINE HCL 2% 400 MG/20 ML MDV INJ (09:12)
[2024-06-29] MEDS: TRIAMCINOLONE ACETONIDE 40 MG/ML VIAL INJ (09:12)
--- NOTE | 2024-06-29 09:14 | W.PM.PROCNOT ---
Date of procedure: 06/29/24 Pre-op diagnosis: Pain due to left sacroiliitis Post-op diagnosis: same as pre-op Procedure: Procedure: Left sacroiliac joint injection Medications: Bupivacaine 0.25% 3cc, kenalog 40mg After informed consent was obtained, the patient was brought to the medical procedure unit and placed in the prone position, when a timeout was completed verifying correct patient, procedure, site, positioning, implant, and/or special equipment.? The skin overlying the area was prepped and draped in standard sterile fashion using alcohol.? A 25-gauge needle was inserted towards the left sacroiliac joint under direct fluoroscopic imaging.? Needle tip was advanced until the joint was encountered.? We instilled a total of 2 mL of solution.? Postoperatively needles were removed.? The patient tolerated the procedure well without complication.? The patient reported reduction in pain symptoms postoperatively. Anesthesia: Local Surgeon: Aaliyah Hampton Pathology: none sent Condition: stable Disposition: no change
== END 2024-06-29 09:17 | disposition home or self-care (01) ==
LOC: SURGOUT 08:03
PROVIDERS: PCP Physician Assistant; Visit Provider Anesthesiology
DX: M46.1 Sacroiliitis, not elsewhere classified (principal)
CPT/HCPCS: 27096; 36415; 84703; J0665; J3301; Q9966

== ENCOUNTER 2024-07-23 07:44 | Outpatient (OUT) | payer OTHER, SELFPAY ==
--- OUTSIDE RECORDS SUMMARY | 2024-07-23 07:49 | XMS_ITS | CCD ---
Author Organization [facility] Care Team Providers Care Salesperson [employer] Tra[employer] Access[employer] Name Role Phone Jose Castano III Primary Care Physician [phone] Eyad ROSAS DO, Rolland R Primary Care [...] Unavailable HORTENCIA, PETEY Consulting Unavailable MD Zack Berman Attending Provider Zack Berman Attending Unavailable Zack Berman Admitting Unavailable Zack BERMAN Attending Unavailable Jose Castano Referring Unavailable Zack BERMAN Attending Unavailable Zack BERMAN Attending Unavailable AUDREY VELA Attending Unavailable JOSE CASTANO Referring Unavailable GODWIN KEYES Attending Unavailable GODWIN KEYES Attending Unavailable Berta KOENIG, Aaliyah Arellano Attending Unavailable Giedraitis , Andrius Arellano Attending Unavailable Giedraitis MD, Andrius Eileen Attending Unavailable Giedraitis MD, Andrius Arellano Attending Unavailable Giedraitis MD, Andrius Eileen Attending Unavailable Giedraitis MD, Andrius Arellano Attending Unavailable Giedraitis MD, Andrius Arellano Attending Unavailable Giedraitis MD, Andrius Arellano Attending Unavailable Allergies Allergy Classification Reported Allergen(s) Allergy Type Date of Onset Reaction(s) Facility (12 sources) Latex; Translations: [latex] Drug allergy 4 Cutaneous eruption (morphologic abnormality), Other: See Comments [facility] (15 sources) SUMAtriptan; Translations: [sumatriptan] Drug Allergy 7 Other: See Comments [facility] (1 source) Amitriptyline Drug Allergy [facility] (1 source) NSAIDs Drug allergy (disorder) [facility] (1 source) Plasmin Drug Allergy [facility] (3 sources) Adhesive bandage; Translations: [Adhesive Bandage] Propensity to adverse reactions to substance [facility] [place] (1 source) SUMAtriptan Drug Allergy [facility] Medications Current Medications Medication Drug [...] Ordered Start: 10-28-2023 take 1 capsule by [facility] once daily in the morning [...] Daily, # 50 tab(s), Refills(s) 1, Pharmacy: [facility], 155, cm, 01/25/21 14:00:00 EDT, Height/Length [...] Pain, # 45 cap(s), Refills(s) 4, Pharmacy: [facility], 155, cm, 03/01/22 15:01:00 EDT, Height/Length [...] Status: Ordered take 1 tablet by [facility] once daily pantoprazole DR (PROTONIX) 40 mg [...] Start: 12-28-2020 take 1 capsule by mo [facility] once daily propranolol ER (INDERAL LA) [...] tablet (2 sources) Serotonin Reuptake Inhibitor Start: 024 take 1 tablet by mouth once daily [...] Comment on above: Take 1 capsule by [facility] three times daily for 14 days. Lactobacillus acidophilus (2 sources) Lactobacillus acidophilus (PROBIOTIC ORAL) Take by mouth. 0 Active Comment on above: Take by mouth. levonorgestrel 0.055942 mg/hr intrauterine system (2 sources) Progestin, Progestin-containing [...] water, # 160 cap(s), Refills(s) 1, Pharmacy: [facility], 155, cm, 04/06/20 13:01:00 EDT, Height/Length [...] on above: Take 1,000 mcg by mo [facility] once daily. Problems Active Problems Problem [...] 10-28-2023 Chronic Other aftercare (1 source) Other jail (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 therapy; Translations: [OTH PENITENTIARY CURRENT DRUG THERAPY] Onset: 2 Episodic Other [...] Summaryon 0 01-07-2024 Ambulatory Visit Summary NICA ESTRADA :1985 Visit Date:01/07/2024 Ambulatory Visit Instructions Your Diagnosis Lipoma of back Your Care Team Attending Physician - Zack BERMAN MD Primary Care Physician - Jose Castano III, DO This Is Your Medications [...] Martinez When: Only if needed Where: [address] [place] [address]- Medications What How Much When [...] choosing us for your care. Normal [facility] General Surgery Office/Clini c Noteon [...] Follow-up With When Contact Information ANTONELLA KOENIG, Zack Gardiner, MASTER Only if needed [address] [place] [address]- Additional Instructions: Problem List/Past Medical [...] (COVID-19) mRNA-1273 vaccine 09/28/2020 Recorded 2023-10-28: TPV20 Normal [facility] Comment on above: Result Comment: Elec tronically Signed By: ANTONELLA KOENIG, Zack Carson\Date and Time Signed: 01/07/24 16:13 EDT Operative Reporton Operative Report [id number]#[id number] Normal [facility] Pathology Noteon 12-27-2023 Pathology Note [id number]#1.00TIFF Normal [facility] Varun 12-25-2023 L Specimen: [id number] eceived: 12/25/23 Status: LAITH Req Num: [id number] Spec Type: Surgical Subm Dr: Zack Berman MD FACS Tissues: A Lipoma (LT BACK) Procedures: HE, Gross/Micro L3 Age/ Patient Sex Location Account Attending Physician Nica Estrada 38/F LABELL [id number] Zack Berman MD FACS SPEC NUM: [id number] RECD: 12/25/23 STATUS: LAITH JUNE NUM: [id number] JAVI: 12/25/[address]: Zack Berman MD FACS ENTERED: 12/25/[address] [facility] [address]: Yuriy Magana SPEC TYPE: Surgical DEPT: [...] no obvious areas of hemorrhage or necrosis. Accounts Payable Manager sections are submitted A1. RG Clinical history: Lipoma, path pending CPT Codes 52302 -------- -------- Specimen: [id number] Received: 12/25/23-135 Status: LAITH June Num: [id number] Spec Type: Surgical Subm Dr: Zack Berman MD FACS Tissues: A Lipoma (LT BACK) Procedures: Eric MAHAJAN/Margy L3 -------- Patient: Nica Estrada [id number] (Continued) -------- Signed (signature on file) Darren Dias MD 12/26/23 1322 Normal [facility] Consent for Procedure/Surger yon 11-12-2023 Consent for Procedure/Surgery [id number]#1.00TIFF Normal [facility] Consent for Procedure/Surgery [id number]#1.00TIFF Normal [facility] Ambulatory Visit Summaryon 0 11-11-2023 Ambulatory Visit Summary NICA ESTRADA :1985 Visit Date:11/11/2023 Ambulatory Visit Instructions Your Care Team Attending Physician - Zack BERMAN MD Primary Care Physician - Jose Castano III, DO Referring Physician - Jose Castano III, DO This Is Your Medications [...] you for choosing us for your care. [facility] Physician Referralon 024 Physician Referral [id number]#[id number] [facility] PREG HCG QUALon 04-20-2022 , QUAL Negative Normal NEGATIVE [facility] Comment on above: Performed By: #### P REG #### [facility] [address] [place] [address] [address] Refugio Apple CNOVon 04-12-2022 CNOV Office Visit (PLASMN ) NICA ESTRADA ([id number]) 1985 F Date Time Provider Department 04/12/22 [...] times d (more content not included)... Normal [facility] PREG HCG QUALon 04-06-2022 , QUAL Negative Normal NEGATIVE [facility] Comment on above: Performed By: #### P REG #### [facility] [address] [address] [address] Refugio Apple CHEMISTRYOrdered By: SYSTEM SYSTEM [...] Folate [Mass/Vol] ng/mL Normal >=6.7ng/mL [facility] Re wen Madrigal 11-10-2021 CNOV Office Visit (GENSSM ) NICA ESTRADA ([id number]) 1985 F Date Time Provider Department 11/10/21 [...] mcg, Iron 45-60 mg and calcium citrate 7273-0935 mg/day PHYSICAL EXAMINATION: Weight loss: BMI 23.2 [...] Ena Mcginnis MD Referring Provider: ENA MCGINNIS [[id number]] Allergies As of Date: 11/10/2021 Noted Allergy [...] JUANITA (a (more content not included)... Normal [facility] MRI CSPINE WO CONon 11-10-19 MRI CSPINE [...] ALONZO Date: 2021-11-10 14:28 Normal [facility] CNOVon 06-15-2021 CNOV Office Visit (YAT846 ) NICA ESTRADA ([id number]) 1985 F Date Time Provider Department 06/15/21 11:30 AM ENA MCGINNIS [id number] During your visit today, we recorded the [...] call directly to schedule upper endoscopy at [phone]. Please leave a message if you receive the voicemail with your name, birthday, and reason for calling. Please expect a call or [employer] message with appointment information and instructions. What [...] is especially important if you have had skyba-ulnfhtbyb-xygge surgery in the past. How is an [...] minutes for (more content not included)... Normal [facility] HISTORY PHYSICALon HISTORY PHYSICAL HNO ID: [id number] Author: Kalpana Otero MD Service: General Surgery [...] DATE: December 16, 2020 TIME: 9:33 AM [facility] NURSING PROGon 12-16-2020 NURSING PROG HNO ID: [id number] Author: Yashira LauRn) DEEPTHI Nova Service: Nursing [...] PT EDon 12-16-2020 PT ED HNO ID: [id number] Author: Manohar LauRn) DEEPTHI Conn Service: Nursing [...] NURSING PROGon 10-25-2020 NURSING PROG HNO ID: [id number] Author: Diego Abad RN Service: ? Author Type: Registered Nurse Type: Nursing Progress Note Filed: 10/25/2020 2:09 AM Note Text: Nursing Progress Note Patient Name: Nica Estrada Patient Location: [place] [address] Daily Note: 2000: Assessment complete see NPR. [...] CAREon 10-25-2020 PLAN OF CARE HNO ID: [id number] Author: Davina Bonlila (WhoJam) Service: Pharmacy Author Type: ? Type: Plan of Care Filed: 10/25/2020 2:56 PM Note Text: Pharmacy Discharge Medication Service: This patient has elected to receive their discharge prescriptions through the [facility] Bedside Prescription Delivery program. The prescriptions are currently being processed. A follow-up note will be entered once the prescriptions have been filled and delivered to the patient. Please contact me with any questions or updates to the patient's discharge medications. Davina Bonilla (WhoJam) DCT Contact Info: [id number] [facility] PLAN OF CARE HNO ID: [id number] Author: Davina Bonilla (WhoJam) Service: Pharmacy Author Type: ? 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 Patient to use [facility] Bedside Delivery - YES Insurance Information as follows: 2. Insurance card on file - YES 3. Credit card for payment - N/A [facility] PLAN OF CARE HNO ID: [id number] Author: Davina Bonilla (WhoJam) Service: Pharmacy Author Type: ? Type: Plan [...] or your Primary Care Provider. Davina Bonilla (WhoJam) PAGER: [phone] October 25, 2020 2:56 PM [facility] PROGRESSon 10-25-2020 PROGRESS HNO ID: [id number] Author: Presley Torrez Service: General Surgery Author [...] October 25, 2020 TIME: 7:02 AM Normal [facility] PROGRESS HNO ID: [id number] Author: Juliet Lilly Service: General Surgery Author [...] care Juliet Lilly MD General Surgery PGY1 [facility] PT EDon 10-25-2020 PT ED HNO ID: [id number] Author: Geoff Hector Service: Nutrition Therapy Author Type: Armhole Sewer Type: Patient Education Filed: 10/25/2020 12:04 PM [...] October 25, 2020 TIME: 12:04 PM PAGER: [phone] [facility] ANES POSTPROC EVALon 021 ANES POSTPROC EVAL HNO ID: [id number] Author: Brandon Stoddard Service: Anesthesiology Author Type: [...] October 24, 2020 TIME: 4:58 PM CSN: [id number] [facility] ANES PRE-OPon 10-24-2020 ANES PRE-OP HNO ID: [id number] Author: Colin Archer Service: Anesthesiology Author Type: [...] October 24, 2020 TIME: 1:18 PM CSN: [id number] [facility] NURSING PROGon 10-24-2020 NURSING PROG HNO ID: [id number] Author: Sridevi LauRn) DEEPTHI Triana Service: Nursing Author Type: Registered Nurse Type: Nursing Progress Note Filed: 10/24/2020 6:56 PM Note Text: Nursing Progress Note Patient Name: Nica Estrada Patient Location: [place] [address] [address] Transfer Note: Patient transferred into room/unit PK325 in stable condition. Actions taken: No futher actions taken at this time. at bedside. Will continue to monitor and check with patient. This note was completed by: Sridevi Triana RN [facility] NURSING PROG HNO ID: [id number] Author: Gege LauRn) DEEPTHI Kenney Service: Nursing Author Type: Registered Nurse Type: Nursing Progress Note Filed: 10/24/2020 1:38 PM Note Text: PATIENT EDUCATION TOPIC: PROCEDURE / SURGERY: Pre-op Teaching: Protocols PATIENT NAME: Nica Estrada PATIENT LOCATION: OR [place]/ OR [place]OL [facility] TO LEARN COGNITIVE ABILITY: [...] OPERATIVE NOon 10-24-2020 OPERATIVE NO HNO ID: [id number] Author: Ena Mcginnis Service: General Surgery Author Type: Physician Type: Operative Report Filed: 10/26/2020 11:07 AM Note Text: [facility] - Operative Report NICA ESTRADA : 1985 AGE: 35. SEX: F PATIENT TYPE: I HOSP SV: GEN LOCATION: [facility] ATTENDING PHYSICIAN: Ena Mcginnis MD CSN NUMBER: [id number] DATE OF SURGERY/PROCEDURE: 10/24/2020 INCISION/PROCEDURE START TIME: 2:28 PM INCISION CLOSE/PROCEDURE END TIME: 4:31 PM PREOPERATIVE DIAGNOSIS: Morbid obesity, BMI of 42. POSTOPERATIVE DIAGNOSIS: 1. Morbid obesity. 2. Hiatal hernia. SURGEON: Ena Mcginnis MD CHUTE TAPPER: Presley Torrez MD. SURGERY/PROCEDURE: 1. Laparoscopic repair [...] performed in the retroesophageal window and a [place] drain was passed. It was used to retract the esophagus. The posterior cruroplasty was completed using 1 tiiien-ai-qenrv stitch using silk to tighten the sharri. [...] assisted in the absence of qualified surgical supply assistant help. He created the pouch and created the jejunojejunostomy. Ena Mcginnis MD TA:[id number] /[id number] [facility] Confirm Blood Typeon 021 ABO/RH(D) Positive Normal [facility] Comment on above: Performed By: #### C ONABO ####[facility] [place], [place] [phone] HISTORY PHYSICALon HISTORY PHYSICAL HNO ID: [id number] Author: Amanda Shane (Pa) Service: ? Author Type: Physician Ship Manager Type: HANDP Filed: 10/17/2020 2:58 PM Note Text: HISTORY AND PHYSICAL EXAMINATION SERVICE DATE: 10/17/2020 SERVICE TIME: 2:42 PM PRIMARY CARE PHYSICIAN: Jose Castano III, DO REASON FOR VISIT: Nica [...] fevers. Neuro: No history of TIA's, stroke, OVEN EQUIPMENT REPAIRER tumor, impaired sensorium, hemiplegia, paraplegia or quadraplegia. No neurological symptoms or problems. Respiratory: asthma, uses rescue about once every few weeks; no current resp sx. Had acute bronchitis last Fall, flared asthma for a while but is better now. Has environmental allergies Cardiovascular: No history of HTN requiring medication, no history of angina, CHF, NC, cardiac surgery or stents. Denies rest pain, gangrene or revascularization/amputation for PVD. No history of cardiovascular symptoms or problems. GI: Positive for GERD, no other GI sx. 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 Marcella Saldana RN Progress Notes ([address]): Ena Mcginnis MD 10/13/2020 5:31 PM Signed SURGERY PREOPERATIVE VISIT NOTE Name: Nica Estrada Medical Record: [id number] Encounter No.: [id number] Nica Estrada is a 35 year old [...] regarding unsatisfactory weight loss as well as jail weight regain. I have also discussed medical [...] on recommendations of the Governor of the [facility]. Although we will perform appropriate [...] patient. Ena Mcginnis MD Previous Version Normal [facility] HEPATITIS B SURFACE AB IMMUN ITY, QNon 08-11-2020 HEPATITIS B SURFACE AB IMMUNITY, QN >1000 Normal > OR = 10 [facility] Comment on above: Result Comment: Patient has immunity to hepatitis B virus. For additional information, please refer to http://education.[employer].ProtoExchange/faq/MEN074 (This link is being provided for informational/ educational purposes only). Performed By: #### 8 475 #### [facility]-[address], [address] [place] [phone] Manager Metal: Sixto Chandler MD Vital Signs Date Time Vital Sign Value Performing Clinician Facility 10-16-2022 12:53-0500 Diastolic blood pressure 80 mm[Hg] [facility] 10-16-2022 12:53-0500 Heart rate 55 /min [facility] 10-16-2022 12:53-0500 Mean blood pressure 89 mm[Hg] [facility] 10-16-2022 12:53-0500 Respiratory rate 18 /min [facility] 10-16-2022 12:53-0500 Systolic blood pressure 108 mm[Hg] [facility] 08-28-2022 08:52-0500 Heart rate 70 /min [facility] 08-28-2022 08:52-0500 SaO2% (BldA) [Mass fraction] 100 % [facility] 08-28-2022 08:52-0500 Respiratory rate 16 /min [facility] 08-28-2022 08:52-0500 Diastolic blood pressure 80 mm[Hg] [facility] 08-28-2022 08:52-0500 Mean blood pressure 93 mm[Hg] [facility] 08-28-2022 08:52-0500 Systolic blood pressure 121 mm[Hg] [facility] 08-28-2022 08:46-0500 Heart rate 70 /min [facility] 08-28-2022 08:46-0500 SaO2% (BldA) [Mass fraction] 100 % [facility] 08-28-2022 08:46-0500 Body temperature 97.52 [degF] [facility] 08-28-2022 08:46-0500 Diastolic blood pressure 69 mm[Hg] [facility] 08-28-2022 08:46-0500 Mean blood pressure 80 mm[Hg] [facility] 08-28-2022 08:46-0500 Systolic blood pressure 104 mm[Hg] [facility] 08-28-2022 08:46-0500 Respiratory rate 16 /min [facility] 08-28-2022 08:41-0500 Diastolic blood pressure 64 mm[Hg] [facility] 08-28-2022 08:41-0500 Systolic blood pressure 102 mm[Hg] [facility] 08-28-2022 08:40-0500 Heart rate 71 /min [facility] 08-28-2022 08:40-0500 Respiratory rate 12 /min [facility] 08-28-2022 08:40-0500 SaO2% (BldA) [Mass fraction] 100 % [facility] 08-28-2022 08:35-0500 Respiratory rate 12 /min [facility] 08-28-2022 08:30-0500 Respiratory rate 12 /min [facility] 08-28-2022 07:17-0500 Mean blood pressure 78 mm[Hg] [facility] 08-28-2022 07:17-0500 Respiratory rate 16 /min [facility] 08-28-2022 07:17-0500 Body temperature 98.24 [degF] [facility] 04-12-2022 14:47-0400 Body height 152.4 cm Lazara Woods MD Work Phone: [facility] 04-12-2022 14:47-0400 Body temperature 98.91 [degF] Lazara Woods MD Work Phone: [facility] 04-12-2022 14:47-0400 Body weight 55.52 kg Lazara Woods MD Work Phone: [facility] 04-12-2022 14:47-0400 Diastolic blood pressure 92 mm[Hg] Lazara Woods MD Work Phone: [facility] 04-12-2022 14:47-0400 Heart rate 65 /min Lazara Woods MD Work Phone: [facility] 04-12-2022 14:47-0400 Systolic blood pressure 140 mm[Hg] Lazara Woods MD Work Phone: [facility] 03-01-2022 14:59-0400 Diastolic blood pressure 86 mm[Hg] Mixon SALAM [facility] 03-01-2022 14:59-0400 Heart rate 52 /min Mixon SALAM [facility] 03-01-2022 14:59-0400 Systolic blood pressure 130 mm[Hg] Mixon SALAM [facility] Encounters Encounter Date Encounter Type Care Provider Facility Start: 06-29-2024 End: 06-29-2024 ambulatory Aaliyah Hampton MD Facility:[facility] Start: 06-01-2024 End: 06-01-2024 ambulatory GODWIN KEYES Not Available Start: 04-06-2024 End: 04-06-2024 ambulatory GODWIN KEYES Not Available Start: 02-17-2024 End: 02-17-2024 ambulatory AUDREY VELA Not Available Start: 01-20-2024 End: 01-20-2024 ambulatory Aaliyah Hampton MD Facility: [facility] Start: 01-07-2024 End: 01-08-2024 ambulatory Zack BERMAN Facility: [facility] Start: 01-07-2024 End: 01-07-2024 Patient encounter procedure Zack BERMAN [facility] Start: 01-06-2024 End: 01-06-2024 ambulatory Aaliyah Hampton MD Facility:[facility] Start: 01-03-2024 ambulatory Zack BERMAN Facility: [facility] Start: 12-25-2023 End: 12-25-2023 ambulatory Zack Berman Facility:[facility] Start: 12-25-2023 End: 12-26-2023 ambulatory Zack BERMAN [facility] Work Phone: Start: 12-25-2023 End: 12-25-2023 Departed Referred MD Zack Berman Work Phone: [facility] Start: 12-16-2023 End: 12-16-2023 ambulatory Aaliyah Hampton MD Facility:[facility] Start: 12-09-2023 End: 12-09-2023 ambulatory Aaliyah Hampton MD Facility:[facility] Start: 12-02-2023 End: 12-02-2023 ambulatory Aaliyah Hampton MD Facility:[facility] Start: 11-11-2023 End: 11-12-2023 ambulatory Zack BERMAN Facility: [facility] Start: 11-11-2023 End: 11-26-2023 Pre-admission assessment Zack BERMAN [facility] Start: 11-04-2023 End: 11-04-2023 ambulatory Aaliyah Hampton MD Facility:[facility] Start: 10-21-2023 ambulatory Zack BERMAN Facility:[facility] Start: 09-30-2023 End: 09-30-2023 ambulatory Aaliyah Hampton MD Facility:[facility] Start: 10-16-2022 End: 10-16-2022 [address] [facility] Start: 08-28-2022 End: 08-28-20[address] [facility] Start: 05-04-2022 End: 05-05-[address] [...] End: 03-01-2022 Patient encounter procedure Oral DIETZ [facility] Start: 11-10-2021 End: 11-11-2021 ambulatory PETEY HORTENCIA Facility:[facility] Start: 05-24-2021 End: 06-28-[address] DOCTOR BEAR Facility:[facility] Procedures Date Procedure Procedure Detail Performing Clinician Start: 12-25-2023 Excision of lipoma of back Zack BERMAN Start: 08-28-2022 Radiofrequency ablation of medial branch of lumbar nerve using fluoroscopic guidance [facility] Comment on above: L4/5 +L5/S1 40-50% relief Start: 10-17-2020 Antibody screen Comment on above: Performed By: #### [id number] ####[facility] [id number] [place], [place] [phone] Start: 05-09-2020 Adult depression screening assessment Lazara Woods MD Work Phone: Start: 04-18-2020 Colonoscopy Oral DIETZ Start: 04-18-2020 Esophagogastroduodenoscopy Oral DIETZ section Oral DIETZ section Zack Albarado Cholecystectomy Oral DIETZ Fasciotomy of foot Zack HOFFMAN Trevor-en-Y gastrojejunostomy Zack BERMAN Plan of Treatment Date Care Activity Detail Author Start: 05-17-2022 Influenza vaccination INFLUENZA (#1) [facility] Start: 05-09-2021 Adult depression screening assessment DEPRESSION SCREENING [facility] Start: 04-10-2021 COVID-19 VACCINE (3 - Booster for Moderna series) COVID-19 VACCINE (3 - Booster for Moderna series) [facility] Start: 2013 HPV TESTING HPV TESTING [facility] Start: 02-22-2004 PAP TESTING PAP TESTING [facility] Start: 2002 Urine microalbumin profile DTAP,TDAP,TD (1 - Tdap) [facility] Start: 2001 ANNUAL PCP TEAM AIR DISPATCHER 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 VISIT ANNUAL PCP TEAM CHRONIC DISEASE VISIT [facility] Start: 2001 BP CONTROLLED (<130/80) BP CONTROLLE D (<130/80) [facility] Start: 2001 HEPATITIS C SCREENING HEPATITIS C SC REENING [facility] Start: 2001 HIV SCREENING HIV SCREENING [facility] Start: 2001 SPIROMETRY SPIROMETRY [facility] Start: 1989 PNEUMOCOCCAL (1 - PCV) PNEUMOCOCCAL (1 - PCV) [facility] Clini c Immunizations Immunization Date Immunization Notes Care Provider Fa cility 11-11-2020 SARS-CoV-2 (COVID-19 ) mRNA-1273 vaccine Zack BERMAN [facility] Comment on above: Result Comment: 2023: TPV20 09-28-2020 COVID-19 vaccine, fu ll dose (MODERNA) Lazara Woods MD Work Phone: [facility] Comment on above: Result Comment: 2023: TPV20 07-01-2020 influenza, injectabl e, quadrivalent, preservative free Lazara Woods MD Work Phone: [facility] 06-17-2020 influenza virus vaccine, unspecified formulation Lazara Woods MD Work Phone: [facility] NEGATED: Highlighted row has not occurred!11-11-2023 influenza virus vaccine, unspecified formulation Zack BERMAN [facility] Payers Date Payer Category Payer Self-pay [id number] 2022 Medicaid [id number] 2022 Private Health Insurance 2022 Unknown 2022 Unknown [id number] 2018 Medicaid [facility] MEDICAID [facility] [employer] MEDICAID [id number] 2018-Present [phone] [address] [place] [address] Medicaid [id number]. [id number] 1983 Unknown [id number] 840.1.455386.3.579.2. 593 1983 Unknown [id number] .840.1.153041.3.579.2. 593 1983 Unknown [id number] 840.1.985247.3.579.2. 593 1983 Unknown [id number] 11.01.830.1.971511.3.579.2. 59 1983 Unknown [id number] .1.172776.3.579.2. 593 1983 Unknown [id number] .1.237353.3.579.2. 593 1983 Unknown [id number] .1.853183.3.579.2. 593 1983 Unknown [id number] .1.315898.3.579.2. 727 1983 Unknown [id number] .1.656112.3.579.2. 727 1983 Unknown [id number] .1.517747.3.579.2. 727 1983 Unknown [id number] .1.787240.3.579.2. 1259 1983 Unknown [id number] 11.01.830.1.167305.3.579.2. 1259 1983 Unknown [id number] .1.935385.3.579.2. 1259 1983 Unknown [id number] 11.01.830.1.080105.3.579.2. 196 1983 Unknown [id number] 840.1.225322.3.579.2. 196 1983 Unknown [id number] 840.1.731896.3.579.2. 196 1983 Unknown [id number] 2.16.840.1.219814.3.579.2. 196 1983 Unknown [id number] 2.16.840.1.936442.3.579.2. 196 1983 Unknown [id number] 2.16.840.1.871862.3.579.2. 196 1983 Unknown [id number] 2.16.840.1.807612.3.579.2. 196 1983 Unknown [id number] 2.16.840.1.835647.3.579.2. 196 1959 Unknown [id number] Unknown [id number] 2.16.840.1.468847.3.579.2. 531 Social History Date Type Detail Facility Start: 03-01-2022 End: 11-11-2023 Tobacco smoking status Never smoked tobacco (finding) [facility] Tobacco smoking status Never [facility] Sex Assigned At Female [facility] Start: 06-27-2017 Tobacco use and exposure Smokeless tobacco non-user [facility] Start: 04-12-2022 Alcohol intake Current drinke r of alcohol (finding) [facility] Start: 04-12-2022 Alcohol intake [facility] Start: 01-05-2020 History SDOH Alcohol Frequency 3 [facility] Start: 01-05-2020 History SDOH Alcohol Std Drinks 1 [facility] Start: 10-17-2020 History SDOH Alcohol Comment once a month, 1 drink [facility] Start: 1983 Sex Assigned At Not on file C [facility] Start: 04-01-2022 End: 04-11-2022 Exposure to SARS-CoV-2 (event) Not sure [facility] Start: 1983 Sex Assigned At Female F [facility] Functional Status Date Assessment Result Facility 10-16-2022 Functional Status N/A [facility] 08-28-2022 Functional Status N/A [facility] Clinical Notes 05-04-2020 to 12-27-2023 Note Date & Type Note Facility 12-27-2023 Hospital Discharge instructions Follow Up Care 12/27/2023 13:04:11 With:ANTONELLA KOENIG, MASTER Martinez Address: [address] [place], [place] [id number]- When: only if needed [facility] General Surgery [place] 11-11-2023 Note Chief [...] Brother. Colon ca (more content not included)... [facility] Comment on above: Result Comment: Elec [...] Patient agrees with plan of care. [facility]07-28-2022 NoteHNO ID: [id number] Author: ST Rick Service: ? Author Type: Labor Crew Supervisor Type: Progress Notes Filed: 04/12/2022 3:50 PM Note Text: DATE OF PHOTOS: 04/12/2022 Body Part: Breasts, Abdomen, Leg(s) and Arms ST Rick April 12, 2022 3:49 [facility]07-28-2022 History of Present illness Narrative* ST Rick - 04/12/2022 3:49 PM EDT DATE OF PHOTOS: 04/12/2022 Body Part: Breasts, Abdomen, Leg(s) and Arms ST Rick April 12, 2022 3:49 PM [facility]22 NoteHNO ID: [id number] Author: Lazara Woods MD Service: ? Author [...] this visit. ALLERGIES A (more content not included)...[facility]07-27-2022 History of Present illness Narrative* Lazara [...] weeks. Lazara Woods MD documented in this encounter[facility] Evaluation + Plan note Diagnostic Tests Pending [...] 04/25/21 * Vitamin B12 Level 04/25/21 [facility]02-25-2022 NoteHNO ID: [id number] Author: Ena Mcginnis MD Service: ? Author [...] mcg, Iron 45-60 mg and calcium citrate 7038-7680 mg/day PHYSICAL EXAMINATION: Weight loss: BMI 23.2 [...] ? Doing great ? EGD Ena Mcginnis [facility]09-30-2021 NoteHNO ID: [id number] Author: Ena Mcginnis MD Service: ? Author [...] mcg, Iron 45-60 mg and calcium citrate 5598-6697 mg/day ? COMPLETE REVIEW OF SYSTEMS Constitutional--Negative [...] which included preparing to see the patient, [id number] patient care and completing clinical documentation.[facility]08-10-2021 Evaluation + Plan note Future Scheduled Tests Laboratory* Copper Level 04/25/21 * Zinc Level 04/25/21 * Vitamin A Level 04/25/21 * Vitamin B1 04/25/21 * Vitamin B6 Lvl 04/25/21 * Vitamin D 25 Hydroxy 04/25/21 * Ferritin 04/25/21 * Folate Level 04/25/21 * Iron Level 04/25/21 * Magnesium Level 04/25/21 * Vitamin B12 Level 04/25/21 [facility] [id number] History of Past illness Narrative* Problem Noted Date Resolved Date Morbid obesity 05/04/2020 01/23/2021 documented as of this encounter (statuses as of 04/12/2022) [facility]08-19-2020 History of Past illness Narrative* Problem Noted Date Resolved Date Morbid obesity 05/04/2020 01/23/2021 documented as of this encounter (statuses as of 04/12/2022) [facility] + Plan note Future Appointments Appointment Date:09/24/2022 10:30:00 AM Scheduled Provider:Sridevi Goetz PA-C Location:[facility] [place] Appointment Type:Pain Management - Follow Up (FT) [facility] note* Diagnosis Hx of bariatric surgery- Primary Bariatric surgery status Excess skin documented in this encounter [facility] noteNo assessment [facility] Work Phone: Hospital course Narrative No data available for this section [facility] Hospital Discharge instructions No data available for this section [facility] Progress note No data available for this section [facility] Summary Purpose Family History No [...] FoundDocuments on File Type Date Recorded Patient 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 Note HNO ID: [id number] Author: Devonte Zurita Service: Anesthesiology Author Type: Nurse Individual Small Group Instructor Type: Anesthesia Procedure Notes Filed: 10/24/2020 2:26 [...] Orientation: Right Location: Hand SIGNATURE: Pallavi Zurita APRN.SHAVON PATIENT NAME: Nica Estrada DATE: October 24, 2020 TIME: 2:26 PM CSN: [id number] Note HNO ID: [id number] Author: Douglas Torrez Service: General Surgery Author Type: Physician Type: Brief Op Note Filed: 10/24/2020 4:36 PM Note Text: BRIEF OPERATIVE NOTE [facility] LOG ID: [id number] SURGERY/PROCEDURE DATE: 10/24/2020 INCISION/PROCEDURE START TIME: 2:28 PM INCISION CLOSE/PROCEDURE END TIME: 4:31 PM SURGEON(S) AND CHUTE TAPPER(S): Surgeon(s) and Role: * Ena Mcginnis - Primary * Jarad Clarke (Res) DO Steven - Resident - Assisting * Presley Torrez - Resident - Assisting No Additional Staff PROCEDURES AND ANESTHESIA: Procedure(s) and Anesthesia Type: * LAPAROSCOPIC GASTRIC RESTRICTIVE SURG W/ BYPASS AND TREVOR-EN-Y Procedure Findings Note HNO ID: [id number] Author: Devonte Zurita Service: Anesthesiology Author Type: Nurse Individual Small Group Instructor Type: Anesthesia Procedure Notes Filed: 10/24/2020 2:25 PM Note Text: ANESTHESIOLOGY PROCEDURE NOTE Airway General Information Procedure Start Time/Medication Administration: 10/24/2020 2:14 PM Patient location during procedure: OR Timeout Performed Pre-procedure: timeout performed Patient identity confirmed: arm band, care tractor driver teamster and patient Staffing Anesthesiologist: Brandon Stoddard LENS GENERATING MACHINE TENDER: Pallavi Zurita Performed by: SHAVON Indications and [...] (more content not included)... Note HNO ID: [id number] Author: Devonte Zurita Service: Anesthesiology Author Type: Nurse Individual Small Group Instructor Type: Anesthesia Procedure Notes Filed: 10/24/2020 2:26 [...] October 24, 2020 TIME: 2:26 PM CSN: [id number] Note HNO ID: [id number] Author: Douglas Torrez Service: General Surgery Author Type: Physician Type: Brief Op Note Filed: 10/24/2020 4:36 PM Note Text: BRIEF OPERATIVE NOTE [facility] LOG ID: [id number] SURGERY/PROCEDURE DATE: 10/24/2020 INCISION/PROCEDURE START TIME: 2:28 PM INCISION CLOSE/PROCEDURE END TIME: 4:31 PM SURGEON(S) AND CHUTE TAPPER(S): Surgeon(s) and Role: * Ena Mcginnis - [...] DATE CREATED AUTHOR AUTHOR'S ORGANIZ ATION 10/18/2020 [facility] DATE CREATED AUTHOR AUTHOR'S ORGANIZ ATION 12/17/2020 [facility] DATE CREATED AUTHOR AUTHOR'S ORGANIZ ATION 04/16/[address] 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 [employer] Relationship Specialty Start Date End Date Jose Castano III, DO [address] [place] [address] PCP - General Family Practice 10/04/20 [employer]person [employer] Relationship Specialty Start Date End Date Jose Castano III, DO [address] [place] [address] PCP - General Family Practice 10/04/20 Team Status: Inactive Member Role Status Dates Zack Berman MD FACS Attending Provider Active Start: December 25, 2023 End: December 25, 2023 Source Comments (unrecognize d section and content) In the event this informatio n is protected by the Federal Confidentiality of Alcohol and Drug Abuse Patient Records regulations: The Federal rules restrict any use of the information to criminally investigate or prosecute any alcohol or drug abuse patient.[facility] the event this information is protected by the Federal Confidentiality of Alcohol and Drug Abuse Patient Records regulations: The Federal rules restrict any use of the information to criminally investigate or prosecute any alcohol or drug abuse patient.[facility] Reason for Visit (unrecogniz ed section and [...] BE BASED ON THE PRIMARY CLINICAL RECORDS. [facility] [employer] [facility]. provides no warranty or guarantee of the accuracy or completeness of information in this document.
--- NOTE | 2024-07-23 08:07 | P.CN_ITS ---
Consult Note: HPI Data of Consult Patient: known to practice within the last 3 years Consult date: 12/16/23 Requesting Physician: Miladys Vivas NP Primary Care Provider: PETEY BURNETT Consult Narrative Reason for consult: low back, bilateral lower extremity pain, neck pain/radiculopathy Narrative: this is a pleasant 39-year-old female who presents for evaluation of chronic neck and low back pain. continuing to report >50% improvement from prior bilateral L4-5 L5-S1 facet joint RFA, and prior TFESIs. patient currently on tizandine 4mg TIDprn, lyrica 100mg TID, and prn Tylenol. cannot take nsaids due to hx of gastric bypass. Patient having intermittent sharp pressure pain to right low back and hip, increased pain with standing walking and weather changes, pain improved with sitting, lying, heat/ice. Pain at times 8/10. has engaged in provider guided HEP greater than 6 weeks without benefit, continues to engage in HEP as tolerated. recent left SIJ injection providing 95% improvement ongoing. cc:: CC: Miladys Vivas NP Review of Systems ROS Status of ROS 10 or more systems reviewed and unremark able except as noted in history and below Musculoskeletal Reports: back pain and neck pain [facility]SH [facility] Medical History (Updated 07/23/24 @ 08:08 by Miladys Vivas NP) Change in bowel habits ?R19.4 - Change in bowel habit (ICD-10) Prediabetes ?R73.03 - Prediabetes (ICD-10) Obesity ?E66.9 - Obesity, unspecified (ICD-10) Obstructive hydronephrosis Migraines ?G43.909 - Migraine, unspecified, not intractable, without status migrainosus (ICD-10) Lipoma of back ?D17.1 - Benign lipomatous neoplasm of skin and subcutaneous tissue of trunk (ICD-10) Abdominal pain ?R10.9 - Unspecified abdominal pain (ICD-10) Dyssynergia ?R27.8 - Other lack of coordination (ICD-10) Depression ?F32.A - Depression, unspecified (ICD-10) Colon polyps ?K63.5 - Polyp of colon (ICD-10) Chronic constipation ?K59.09 - Other constipation (ICD-10) Asthma ?J45.909 - Unspecified asthma, uncomplicated (ICD-10) Hiatal hernia ?K44.9 - Diaphragmatic hernia without obstruction or gangrene (ICD-10) Fibromyalgia ?M79.7 - Fibromyalgia (ICD-10) Osteoarthritis ?M19.90 - Unspecified osteoarthritis, unspecified site (ICD-10) Low back pain ?M54.50 - Low back pain, unspecified (ICD-10) Anxiety ?F41.9 - Anxiety disorder, unspecified (ICD-10) Hypercholesterolemia ?E78.00 - Pure hypercholesterolemia, unspecified (ICD-10) Hypertension ?I10 - Essential (primary) hypertension (ICD-10) Surgical History H/O gastric bypass ?Z98.84 - Bariatric surgery status (ICD-10) S/P foot surgery, right ?Z98.890 - Other specified postprocedural states (ICD-10) S/P cholecystectomy ?Z90.49 - Acquired absence of other specified parts of digestive tract (ICD- 10) S/P ?Z98.891 - History of uterine scar from previous surgery (ICD-10) Family History Other Family history of myocardial infarction Social History Within the past year, how often did you have a drink containing alcohol: 2-4 times a month Smoking status: Never smoker Non-prescribed substance use: denies use 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 Highest level of school completed/degree received: some college, no degree Meds Home Medications and Allergies Home Medications ?Medication ?Instructions ?Recorded ?Confirmed ?Type alprazolam 0.25 mg tablet (Xanax) 0.25 mg PO DAILY PRN anxiety 03/27/23 06/29/24 History baclofen 10 mg tablet 10 mg PO .hs PRN muscle spasm 03/27/23 06/29/24 History duloxetine 30 mg capsule,delayed 90 mg PO QDAY 03/27/23 06/29/24 History release propranolol 120 mg capsule,24 120 mg PO Q24H 03/27/23 06/29/24 History hr,extended release cariprazine 1.5 mg capsule 1.5 mg PO DAILY 08/09/23 06/29/24 History (Vraylar) ondansetron 4 mg disintegrating 4 mg PO DAILY PRN nausea and 08/09/23 06/29/24 History tablet vomiting rimegepant 75 mg disintegrating 75 mg PO DAILY PRN migraine 08/09/23 06/29/24 History tablet (Nurtec ODT) headache trazodone 50 mg tablet 50 mg PO DAILY 08/09/23 06/29/24 History pregabalin 75 mg capsule (Lyrica) 75 mg PO TID #90 caps 11/04/23 06/29/24 Rx Allergies Allergy/AdvReac Type Severity Reaction Status Date / Time latex Allergy Severe Rash Verified 06/29/24 08:23 amitriptyline AdvReac Mild Nausea Verified 06/29/24 08:23 NSAIDS (Non-Steroidal AdvReac Unknown Verified 06/29/24 08:23 Anti-Inflamma Exam Constitutional Documenting provider has reviewed patient's vital signs: yes Common normals: no apparent distress, oriented x3, healthy appearing, alert and well nourished General appearance: cooperative HENMT Common normals: normocephalic, hearing grossly normal bilaterally and moist oral mucous membranes Head and scalp: normocephalic Eye Common normals: PERRL Pupil: PERRL Neck & C-Spine Common normals: full ROM General: normal visual inspection Cervical spine: cervical ROM abnormal, pain with cervical ROM and cervical spine tenderness Other: positive spurlings decreased sensation in RUE strength 4/5 in RUE, 5/5 in LUE Chest Common normals: inspection of chest normal Respiratory Common normals: normal respiratory effort, no retractions and no use of accessory muscles Effort & inspection: able to speak in complete sentences Back & Pelvis Lumbar spine/lower back: lumbar ROM normal, pain with ROM and straight leg raise negative bilaterally Sacroiliac joints: SI joint(s) abnormal Other: right SIJ positive harshal(patricks), gaenslens, thigh thrust, compression test, negative left sided exam Extremity Common normals: normal to inspection and full ROM Neuro Common normals: oriented x3, CN's II-XII intact bilaterally, moves all extremities, no focal motor deficits, no sensory deficits noted and deep tendon reflexes 2+ bilaterally Sensorium/orientation: alert Motor exam: strength 5/5 throughout and no movement abnormalities noted Psych Common normals: mental status grossly normal, thought process normal, cooperative, affect normal, speech normal and activity/motor behavior normal Speech: normal speech Thought process: normal thought process Results Additional Findings Additional findings: If on a controlled substance or opioids, I have checked an [place]AR[place] report on this patient and there are no aberrancies noted in the prescribing history.??If on a controlled substance or opioid a drug screen was completed and reviewed within the last year, and if there has not been a drug screen completed we ordered one today to monitor higher risk, state monitored pain medication use. As part of providing excellent, safe, comprehensive care, the following was completed at our patient's visit: 1. A medication reconciliation and review to ensure accurate knowledge of current/active medications, including asking our patients to inform us about any [id number] medications or herbal remedies/nutritional supplements/alternative remedies. 2. A review to specifically ensure our patients have had annual screening for screening for depression, screening for tobacco use, and screening for unhealthy alcohol use. For concerning screenings had a discussion with the patient, provided patient education, and recommended follow-up with primary care provider when appropriate. If patient noted with a risk of falling, they received education on strength, gait, and balance training to prevent future risk of falling. Assessment and Plan Assessment and Plan (1) Sacroiliitis: (2) Lumbar spondylosis: (3) Myalgia: Plan refill tizanidine 4mg TID PRN pain/spasms refill and continue lyrica 100mg TID continue HEP as tolerated f/u 3 months, sooner if needed
== END 2024-07-23 07:45 | disposition home or self-care (01) ==
PROVIDERS: PCP Physician Assistant; Visit Provider Nurse Practitioner
DX: M46.1 Sacroiliitis, not elsewhere classified (principal); M47.816 Spondylosis without myelopathy or radiculopathy, lumbar region; M79.18 Myalgia, other site
CPT/HCPCS: G0463

== ENCOUNTER 2024-09-23 07:45 | Outpatient (OUT) | payer OTHER, SELFPAY ==
--- NOTE | 2024-09-23 08:10 | P.CN_ITS ---
Consult Note: HPI Data of Consult Patient: known to practice within the last 3 years Consult date: 12/16/23 Requesting Physician: Miladys Vivas NP Primary Care Provider: EPTEY BURNETT Consult Narrative Reason for consult: low back, bilateral lower extremity pain, neck pain/radiculopathy Narrative: this is a pleasant 39-year-old female who presents for evaluation of chronic neck and low back pain. pt currently on tizandine 4mg TIDprn, lyrica 100mg TID, and prn Tylenol. cannot take nsaids due to hx of gastric bypass. Patient having intermittent sharp pressure pain to low back and bilateral legs, increased pain with standing walking and weather changes, pain improved with sitting, lying, heat/ice. Pain at times 8/10, currently 7/10. has engaged in provider guided HEP greater than 6 weeks without benefit, continues to engage in HEP as tolerated. recent left SIJ injection providing 95% improvement ongoing. previous bilateral L4-5 TFESI and bilateral L5-S1 TFESI provided >50% improvement greater than 3 months. REBEL 49%, moderate pain, significant limitation in ability to sit, stand, walk and tolerate travel. cc:: CC: Miladys Vivas NP Review of Systems ROS Status of ROS 10 or more systems reviewed and unremark able except as noted in history and below Musculoskeletal Reports: back pain and neck pain [facility] Medical History (Updated 09/23/24 @ 08:13 by Miladys Vivas NP) Change in bowel habits ?R19.4 - Change in bowel habit (ICD-10) Prediabetes ?R73.03 - Prediabetes (ICD-10) Obesity ?E66.9 - Obesity, unspecified (ICD-10) Obstructive hydronephrosis Migraines ?G43.909 - Migraine, unspecified, not intractable, without status migrainosus (ICD-10) Lipoma of back ?D17.1 - Benign lipomatous neoplasm of skin and subcutaneous tissue of trunk (ICD-10) Abdominal pain ?R10.9 - Unspecified abdominal pain (ICD-10) Dyssynergia ?R27.8 - Other lack of coordination (ICD-10) Depression ?F32.A - Depression, unspecified (ICD-10) Colon polyps ?K63.5 - Polyp of colon (ICD-10) Chronic constipation ?K59.09 - Other constipation (ICD-10) Asthma ?J45.909 - Unspecified asthma, uncomplicated (ICD-10) Hiatal hernia ?K44.9 - Diaphragmatic hernia without obstruction or gangrene (ICD-10) Fibromyalgia ?M79.7 - Fibromyalgia (ICD-10) Osteoarthritis ?M19.90 - Unspecified osteoarthritis, unspecified site (ICD-10) Low back pain ?M54.50 - Low back pain, unspecified (ICD-10) Anxiety ?F41.9 - Anxiety disorder, unspecified (ICD-10) Hypercholesterolemia ?E78.00 - Pure hypercholesterolemia, unspecified (ICD-10) Hypertension ?I10 - Essential (primary) hypertension (ICD-10) Surgical History H/O gastric bypass ?Z98.84 - Bariatric surgery status (ICD-10) S/P foot surgery, right ?Z98.890 - Other specified postprocedural states (ICD-10) S/P cholecystectomy ?Z90.49 - Acquired absence of other specified parts of digestive tract (ICD- 10) S/P ?Z98.891 - History of uterine scar from previous surgery (ICD-10) Family History Other Family history of myocardial infarction Social History Within the past year, how often did you have a drink containing alcohol: 2-4 times a month Smoking status: Never smoker Non-prescribed substance use: denies use 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 Highest level of school completed/degree received: some college, no degree Meds Home Medications and Allergies Home Medications ?Medication ?Instructions ?Recorded ?Confirmed ?Type alprazolam 0.25 mg tablet (Xanax) 0.25 mg PO DAILY PRN anxiety 03/27/23 06/29/24 History baclofen 10 mg tablet 10 mg PO .hs PRN muscle spasm 03/27/23 06/29/24 History duloxetine 30 mg capsule,delayed 90 mg PO QDAY 03/27/23 06/29/24 History release propranolol 120 mg capsule,24 120 mg PO Q24H 03/27/23 06/29/24 History hr,extended release cariprazine 1.5 mg capsule 1.5 mg PO DAILY 08/09/23 06/29/24 History (Vraylar) ondansetron 4 mg disintegrating 4 mg PO DAILY PRN nausea and 08/09/23 06/29/24 History tablet vomiting rimegepant 75 mg disintegrating 75 mg PO DAILY PRN migraine 08/09/23 06/29/24 History tablet (Nurtec ODT) headache trazodone 50 mg tablet 50 mg PO DAILY 08/09/23 06/29/24 History pregabalin 75 mg capsule (Lyrica) 75 mg PO TID #90 caps 11/04/23 06/29/24 Rx pregabalin 100 mg capsule (Lyrica) 100 mg PO TID #90 caps 07/23/24 Rx tizanidine 4 mg tablet 4 mg PO TID PRN muscle spasticity 07/23/24 Rx #90 tabs Allergies Allergy/AdvReac Type Severity Reaction Status Date / Time latex Allergy Severe Rash Verified 06/29/24 08:23 amitriptyline AdvReac Mild Nausea Verified 06/29/24 08:23 NSAIDS (Non-Steroidal AdvReac Unknown Verified 06/29/24 08:23 Anti-Inflamma Exam Constitutional Documenting provider has reviewed patient's vital signs: yes Common normals: no apparent distress, oriented x3, healthy appearing, alert and well nourished General appearance: cooperative HENMT Common normals: normocephalic, hearing grossly normal bilaterally and moist oral mucous membranes Head and scalp: normocephalic Eye Common normals: PERRL Pupil: PERRL Neck & C-Spine Common normals: full ROM General: normal visual inspection Cervical spine: cervical ROM abnormal, pain with cervical ROM and cervical spine tenderness Other: positive spurlings decreased sensation in RUE strength 4/5 in RUE, 5/5 in LUE Chest Common normals: inspection of chest normal Respiratory Common normals: normal respiratory effort, no retractions and no use of accessory muscles Effort & inspection: able to speak in complete sentences Back & Pelvis Lumbar spine/lower back: lumbar ROM normal, pain with ROM, lumbar spinal tenderness, straight leg raise positive right and straight leg raise positive left Sacroiliac joints: SI joints normal Other: decreased sensation bilateral L5/S1 strength 4/5 in BLE increased pain and heaviness with standing/walking, improved with forward flexion and sitting. Extremity Common normals: normal to inspection and full ROM Neuro Common normals: oriented x3, CN's II-XII intact bilaterally, moves all extremities, no focal motor deficits, no sensory deficits noted and deep tendon reflexes 2+ bilaterally Sensorium/orientation: alert Motor exam: strength 5/5 throughout and no movement abnormalities noted Psych Common normals: mental status grossly normal, thought process normal, cooperative, affect normal, speech normal and activity/motor behavior normal Speech: normal speech Thought process: normal thought process Results Additional Findings Additional findings: If on a controlled substance or opioids, I have checked an [place] report on this patient and there are no aberrancies noted in the prescribing history.??If on a controlled substance or opioid a drug screen was completed and reviewed within the last year, and if there has not been a drug screen completed we ordered one today to monitor higher risk, state monitored pain medication use. As part of providing excellent, safe, comprehensive care, the following was completed at our patient's visit: 1. A medication reconciliation and review to ensure accurate knowledge of current/active medications, including asking our patients to inform us about any [id number] medications or herbal remedies/nutritional supplements/alternative remedies. 2. A review to specifically ensure our patients have had annual screening for screening for depression, screening for tobacco use, and screening for unhealthy alcohol use. For concerning screenings had a discussion with the patient, provided patient education, and recommended follow-up with primary care provider when appropriate. If patient noted with a risk of falling, they received education on strength, gait, and balance training to prevent future risk of falling. Assessment and Plan Assessment and Plan (1) Lumbar stenosis with neurogenic claudication: Assessment and Plan: The patient has had over 3 months of moderate to severe bilateral low back and leg pain with functional impairment and inadequate response to conservative care including NSAIDS (unless there are contraindication such as concurrent blood thinners), multiple oral or topical pain medications, and home exercise program/physical therapy.? Patient has completed >6 weeks of guided home exercise program and/or formal physical therapy program without relief of their symptoms.? I have reviewed the imaging of the lumbar spine and no red flags were identified.? The imaging reveals radiographic findings consistent with lumbar stenosis with NC, lumbar spondylosis We discussed the risks and benefits of the procedure with the patient, and we are NOT planning on using sedation as outlined in the guidelines from Medicare unless there is a documented reason that sedation would be strongly recommended.??The procedure will be completed with fluoroscopic guidance.? (2) Sacroiliitis: (3) Lumbar spondylosis: (4) Myalgia: Plan repeat bilateral L5-S1 TFESI under fluoroscopy, risks vs benefits reviewed. previous injection provided >50% improvement greater than 3 months increase tizanidine 4-8mg TID PRN pain/spasms continue pregabalin 100mg TID currently on duloxetine 90mg and trazodone 50mg HS through PCP continue HEP as tolerated f/u 2 weeks after injection
== END 2024-09-23 07:46 | disposition home or self-care (01) ==
LOC: PM 07:52
PROVIDERS: PCP Physician Assistant; Visit Provider Nurse Practitioner
DX: M48.062 Spinal stenosis, lumbar region with neurogenic claudication (principal); M46.1 Sacroiliitis, not elsewhere classified; M47.816 Spondylosis without myelopathy or radiculopathy, lumbar region; M79.18 Myalgia, other site
CPT/HCPCS: G0463

== ENCOUNTER 2024-09-28 06:51 | Day surgery (SDC) | payer OTHER, SELFPAY ==
--- OUTSIDE RECORDS SUMMARY | 2024-09-28 06:54 | XMS_ITS | CCD ---
Author Organization [facility] Care Team Providers Care Skip Hoist Engineer Name Role Phone Jose Castano III Primary Care Physician Eyad ROSAS [...] Berman Attending Unavailable Zack Berman Admitting Unavailable ANTONELLA, Zack Gardiner Attending Unavailable Jose Castano Referring Unavailable Zack BERMAN Attending Unavailable Zack BERMAN Attending Unavailable Berta KOENIG, Aaliyah Arellano Attending Unavailable Berta KOENIG, Aaliyah Arellano Attending Unavailable Berta KOENIG, Aaliyah Arellano Attending Unavailable Gieditis , Andrius Arellano Attending Unavailable Gieditis , Andrius Arellano Attending Unavailable Gieditis , Andrius Arellano Attending Unavailable Berta KOENIG, Andrius Arellano Attending Unavailable Berta KOENIG, Aaliyah Arellano Attending Unavailable Candis Colindres MD Primary Care Provider AUDREY VELA Attending Unavailable JOSE CASTANO Referring Unavailable GODWIN KEYES Attending Unavailable GODWIN KEYES Attending Unavailable GODWIN KEYES Attending Unavailable Allergies Allergy Classification Reported Allergen(s) Allergy Type Date of Onset Reaction(s) Facility (18 sources) Latex; Translations: [latex] Drug allergy 4 Cutaneous eruption (morphologic abnormality), Other: See Comments, Rash [facility] (20 sources) SUMAtriptan; Translations: [sumatriptan] Drug Allergy 7 Other: See Comments, GI intolerance [facility] (1 source) Amitriptyline Drug Allergy [facility] (1 source) NSAIDs Drug allergy (disorder) [facility] (1 source) Plasmin Drug Allergy [facility] (3 sources) Adhesive bandage; Translations: [Adhesive Bandage] Propensity to adverse reactions to substance [facility] [place] (1 source) SUMAtriptan Drug Allergy 8 [facility] Rep[facility] (6 sources) Wound Dressing Adhesive Propensity to adverse reactions 4 [facility] Healthcare Medications Current Medications Medication Drug Class(es) Dates Sig (Normalized) Sig (Original) [id number] 200 actuat albuterol 0.09 mg/actuat metered dose inhaler (6 sources) beta2-Adrenergic Agonist take 2 puff(s) by inhalation every four hours for wheezing albuterol HFA 90 mcg/act inhaler Inhale 2 puffs every 4 (four) hours if needed for wheezing Active amitriptyline hydrochloride 25 mg oral tablet (1 source) Tricyclic Antidepressant Start: 05-06-2018 take 25 mg by mouth once daily at bedtime Amitriptyline Active 25 MG PO Daily at bedtime May 06, 2018 12:00am atomoxetine 40 mg oral capsule (15 sources) Norepinephrine Reuptake Inhibitor Start: 05-19-2024 take 1 capsule by mouth once daily in the morning atomoxetine (Strattera) 40 MG capsule TAKE 1 CAPSULE BY MOUTH EVERY DAY IN THE MORNING FOR 30 DAYS 05/19/2024 Active Start: 11-13-2023 take 1 capsule by mo uth once daily atomoxetine (Strattera) 80 MG capsule Take 80 mg by mouth Daily 11/13/2023 Active Start: 10-28-2023 take 1 capsule by mo uth once daily in the morning Strattera 60 mg Cap 60 mg = 1 cap(s), Oral, qAM, Refills(s) 0 Start Date: 10/28/23 Status: Ordered Start: 10-28-2023 take 1 capsule by mo [facility] once daily in the morning Strattera 40 mg Cap 40 mg = 1 cap(s), Oral, qAM, Refills(s) 0 Start Date: 10/28/23 Status: Ordered baclofen 10 mg oral tablet (10 sources) gamma-Aminobutyric Acid-ergic Agonist Start: 05-20-2024 End: 09-21-2024 take 0.5 tablet by mouth in the morning, then take 0.5 tablet by mouth in the evening, then take 0.5 tablet by mouth at bedtime baclofen (Lioresal) 10 MG tablet Indications: Muscle spasm TAKE 0.5 TABLETS (5 MG) BY MOUTH IN THE MORNING AND 0.5 TABLETS (5 MG) IN THE EVENING AND 0.5 TABLETS (5 MG) BEFORE BEDTIME. 45 tablet 05/20/2024 09/21/2024 Discontinued (Ineffective) Start: 10-28-2023 [facility] as needed for pain [...] tablet (2 sources) Stimulant Laxative Start: 01-26-20 21 take 1 tablet by mouth once daily Dulcolax 5 mg Tab-EC 5 mg = 1 tab(s), Oral, Daily, # 50 tab(s), Refills(s) 1, Pharmacy: [facility], 155, cm, 01/25/21 14:00:00 EDT, Height/Length Dosing, 77.7, kg, 01/25/21 14:00:00 EDT, Weight Dosing Start Date: 01/25/21 Status: Ordered cariprazine 1.5 mg oral capsule (8 sources) Atypical Antipsychotic Start: 10-28-19 take 1 capsule by mouth once daily Vraylar 1.5 MG capsule Take 1 capsule by mouth Daily 12/24/2023 Active dicyclomine hydrochloride 10 mg oral capsule (8 sources) Anticholinergic Start: 03-01-20 take 4 capsules by mouth four times daily as needed for pain Bentyl 10 mg Cap 40 mg, Oral, QID, PRN Pain, # 45 cap(s), Refills(s) 4, Pharmacy: [facility]5, 155, cm, 03/01/22 15:01:00 EDT, Height/Length Dosing, 54, kg, 03/01/22 15:01:00 EDT, Weight Dosing Start Date: 03/01/22 Status: Ordered dicyclomine HCl (BENTYL ORAL) Take by mouth. 0 Active Comment on above: Take by mouth. DULoxetine 30 mg delayed release oral capsule (8 sources) Serotonin and Norepinephrine Reuptake Inhibitor Start: take 1 capsule by mouth once daily DULoxetine (Cymbalta) [address] capsule TAKE 1 CAPSULE BY MOUTH EVERY DAY FOR 30 DAYS 09/13/2024 Active Start: 11-23-2023 take 1 capsule by mo [facility] once daily DULoxetine (Cymbalta) [address] capsule Take 60 mg by mouth Daily 11/23/2023 Active duloxetine 30 mg Cap-DR (2 sources) Start: [...] take 1 tablet by mouth at bedtime Norgestimate-Ethiny l Estradiol (Sprintec (28)) 0.25-35 mg-mcg Tablet Active 1 TAB PO Bedtime May 06, 2018 12:00am fluticasone propionate 0.05 mg/actuat metered dose nasal spray (6 sources) Corticosteroid take 1 spray(s) nasal route once daily fluticasone (Flonase) 50 MCG/ACT nasal spray Administer 1 spray into each nostril Daily Shake gently. Before first use, prime pump. After use, clean tip and replace cap. Active 1.5 ml fremanezumab-vfrm 150 mg/ml auto-injector (6 sources) Start: 04-06-2024 fremanezumab (Ajovy) 225 MG/1.5ML auto-injector Indications: Migraine without status migrainosus, not intractable, unspecified migraine type (CMS/HCC) Inject one 225 mg/1.5mL injection subcutaneously once per month 1.68 mL 11 04/06/2024 Active levonorgestrel 0.667409 mg/hr intrauterine system (8 sources) Progestin, Progestin-containin g Intrauterine Device Start: 10-28-2023 Levonorgestrel (Mirena, 52 MG,) 20 MCG/DAY intrauterine device 52 mg 10/28/2023 Active Start: 10-28-2023 Mirena 52 mg i ntrauteral device 52 mg = 1 EA, IntraUteral, Once, X 1 dose(s), # 1 EA, Refills(s) 0 Start Date: 10/28/23 Status: Ordered Nurtec ODT (6 sources) Start: 01-25-2021 take [...] pantoprazole 20 mg delayed release oral tablet (14 sources) Proton Pump Inhibitor Start: take 1 tablet by mouth before mealtime pantoprazole (ProtoNix) 20 MG EC tablet Take 20 mg by mouth in the morning. Take before meals. 08/13/2023 Active Start: 09-15-2020 Protonix Oral, Daily, Refills(s) 0 Start Date: 09/15/20 Status: Ordered take 1 tablet by antwan th once daily pantoprazole DR (PROTONIX) 40 mg tablet Take 40 mg by mouth once daily. 0 Active Comment on above: Take 40 mg by mouth once daily. phentermine hydrochloride 37.5 mg oral tablet (2 sources) Sympathomimetic Amine Anorectic Start: 07-08-20 24 take 1 tablet by mouth once daily phentermine (Adipex-P) 37.5 MG tablet Take 37.5 mg by mouth Daily 07/08/2024 Active Miralax (2 sources) Osmotic Laxative Start: 01-26-20 take 1 g by mouth once daily MiraLax gm, Oral, Daily, Refill(s) 0 Start Date: 01/25/21 Status: Ordered pregabalin 100 mg oral capsule (10 sources) Start: 01-08-20 24 take 1 capsule by mouth in the morning, then take 1 capsule by mouth in the evening, then take 1 capsule by mouth at bedtime pregabalin (Lyrica) 100 MG capsule Take 100 mg by mouth in the morning and 100 mg in the evening and 100 mg before bedtime. 01/08/2024 Active Start: 03-01-2022 take 1 mg by mouth t hree times daily Lyrica 25 mg Cap mg [...] Take 120 mg by mouth once daily. rimegepant 75 mg disintegrating oral tablet (10 sources) Start: 07-16-2024 Rimegepant Sulfate (Nurtec) 75 MG tablet dispersible Indications: Migraine without status migrainosus, not intractable, unspecified migraine type (CMS/HCC) DISSOLVE 1 TABLET ON THE TONGUE EVERY OTHER DAY 16 tablet 3 07/16/2024 Active Start: 06-01-2024 take 1 tablet by antwan th every other day Rimegepant Sulfate (Nurtec) 75 MG tablet dispersible Indications: Migraine without status migrainosus, not intractable, unspecified migraine type (CMS/HCC) Take 75 mg by mouth every other day for migraine prevention. Allow tablet to completely dissolve.. 15 tablet 6 06/01/2024 Active Start: 06-01-2024 take 1 tablet by antwan th every other day Rimegepant Sulfate (Nurtec) 75 MG tablet dispersible Indications: Migraine without status migrainosus, not intractable, unspecified migraine type (CMS/HCC) Take 75 mg by mouth every other day for migraine prevention. Allow tablet to completely dissolve.. 15 tablet 6 06/01/2024 Active Start: 04-06-2024 End: 06-01-2024 Rimegepant Sulfate (Nurtec) 75 MG tablet dispersible Indications: Migraine without status migrainosus, not intractable, unspecified migraine type (CMS/HCC) Allow one 75 mg ODT tablet completely dissolve at onset of migraine daily as needed. 9 tablet 6 04/06/2024 06/01/2024 Discontinued (Reorder) Start: 01-12-2021 NURTEC ODT 75 mg disintegrating tablet Take 1 tablet by mouth PRN(NO DISPENSE) for Migraine Headache (see administration instructions). 0 01/12/2021 Active Comment on above: Take 1 tablet by antwan th PRN(NO DISPENSE) for Migraine Headache (see administration instructions). tiZANidine 4 mg oral tablet (5 sources) Central alpha-2 Adrenergic Agonist Start: take 1 tablet by mouth three times daily as needed tiZANidine (Zanaflex) 4 MG tablet TAKE ONE TABLET BY MOUTH THREE TIMES A DAY NEEDED FOR MUSCLE SPASTICITY 07/23/2024 Active Start: 04-27-2019 take 1 capsule by mo uth three times daily as needed tizanidine 4 [...] daily. traZODone hydrochloride 50 mg oral tablet (8 sources) Serotonin Reuptake Inhibitor Start: 024 take 1 tablet by mouth at bedtime traZODone (Desyrel) 50 MG tablet Take 50 mg by mouth at bedtime 12/25/2023 Active 24 hr venlafaxine 75 mg extended release [...] tablet (8 sources) Calcium Channel Ron Start: 024 take 1 tablet by mouth [...] Comment on above: Take 1 capsule by [facility] three times daily for 14 [...] 04/06/20 1... Start Date: 04/06/20 Status: Ordered 72 hr scopolamine 0.0139 mg/hr transdermal system [...] Comment on above: Take 1,000 mcg by [facility] once daily. Problems Active Problems Problem Classification Problem Date Documented Da te Episodic/Chronic Abdominal pain (8 sources) Left sided abdominal pain; Translations: [Left lower quadrant pain] Onset: 7 11-07-2020 Episodic Anxiety disorders (8 sources) Anxiety; Translations: [Anxiety disorder] Onset: 4 10-28-2023 Chronic Asthma (10 sources) Asthma; Translations: [Unspecified asthma, uncomplicated] Onset: 4 10-17-2020 Chronic Comment on above: Outside Source Comme nt: Overview: uses inhaler a few times a month Deficiency and other anemia (2 sources) Iron deficiency anemia; Translations: [Iron deficiency anemia, unspecified] 10-17-2020 Episodic Disorders of lipid metabolism (10 sources) Hyperlipidemia; Translations: [Hyperlipidemia, unspecified] Onset: 4 10-17-2020 Chronic Esophageal disorders (10 sources) Gastroesophageal reflux disease; Translations: [Gastro-esophageal reflux disease without esophagitis] Onset: 4 01-05-2020 Chronic Essential hypertension (10 sources) Hypertensive disorder; Translations: [Essential (primary) hypertension] Onset: 4 01-05-2020 Chronic Headache; including migraine (20 sources) Migraine; Translations: [Migraine, unspecified, not intractable, without status migrainosus] Onset: 4 01-05-2020 Chronic Mood disorders (8 sources) Depressive disorder; Translations: [Depression] Onset: 4 10-28-2023 Chronic Osteoarthritis (6 sources) Osteoarthritis; Translations: [Unspecified osteoarthritis, unspecified site] Onset: 4 02-06-2024 Chronic Other aftercare (1 source) 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; Translations: [OTH SAGGER MAKER CURRENT DRUG THERAPY] Onset: 2 Episodic Other and unspecified benign neoplasm (6 sources) Polyp of colon 05-19-2020 Episodic Other and unspecified benign neoplasm (2 sources) Lipoma of back 11-11-2023 Episodic Other and unspecified benign neoplasm (1 source) Lipoma of skin and subcutaneous tissue of trunk; Translations: [Benign lipomatous neoplasm of skin and subcutaneous tissue of trunk] Onset: 4 Episodic Other connective tissue disease (12 sources) Fibromyalgia; Translations: [Fibromyalgia] Onset: 8 07-23-2018 Episodic Other connective tissue disease (10 sources) Muscle pain; Translations: [Myalgia, unspecified site] Onset: 4 02-06-2024 Episodic Other gastrointestinal disorders (7 sources) Chronic [...] and subcutaneous tissue] Episodic Residual codes; unclassified (8 sources) Obstructive sleep apnea syndrome; Translations: [Obstructive sleep apnea (adult) (pediatric)] Onset: 4 10-17-2020 Chronic Residual codes; unclassified (2 sources) Sleep apnea 10-28-2023 Chronic Residual codes; unclassified (1 source) Acquired absence of other specified parts of digestive tract; Translations: [ACQ ABSENCE OTH PART DIGESTV TRACT] Onset: 2 Episodic Spondylosis; intervertebral disc disorders; other back problems (20 sources) Spondylosis without myelopathy or radiculopathy, lumbar region; Translations: [Other intervertebral disc degeneration, lumbar region] Onset: 2 Chronic Spondylosis; intervertebral disc disorders; other back problems (7 sources) Cervicalgia; Translations: [Spinal stenosis, cervical region] [...] [Calculus of ureter] Onset: 06-27-2017 06-27-2017 Episodic Diabetes mellitus without complication (8 sources) Prediabetes; Translations: [Prediabetes] Onset: 02-06-2024 10-28-2023 Episodic Headache; including migraine (8 sources) Headache; Translations: [Headache] Onset: 05-31-2024 05-31-2024 Episodic Immunizations and screening for infectious disease (2 sources) Anti-nuclear factor positive; Translations: [Other specified abnormal immunological findings in serum] Onset: 07-23-2018 07-23-2018 Episodic Nausea and vomiting (2 sources) Postoperative nausea and vomiting; Translations: [Nausea with vomiting, unspecified] Onset: 10-24-2020 10-24-2020 Episodic Other diseases of kidney and ureters (2 sources) Hydronephrosis; Translations: [Hydronephrosis with renal and ureteral calculous obstruction] Onset: 06-27-2017 06-27-2017 Episodic Other nervous system disorders (6 sources) Paresthesia; Translations: [Paresthesia of skin] Onset: 05-31-2024 05-31-2024 Episodic Other non-traumatic joint disorders (4 sources) Pain in right knee; Translations: [PAIN IN RIGHT KNEE] Onset: 05-24-2021 Episodic Other skin disorders (2 sources) Alopecia; Translations: [Nonscarring hair loss, unspecified] Onset: 07-23-2018 07-23-2018 Episodic Other upper respiratory disease (6 sources) Nasal obstruction; Translations: [Other specified disorders of nose and nasal sinuses] Onset: 02-17-2024 02-17-2024 Episodic Results Test Name Value Interpretation Reference [...] Martinez When: Only if needed Where: [address] [place] [address]- Medications What How Much When [...] for choosing us for your care. Normal [facility] General Surgery Office/Clini c Noteon 01-07-2024 [...] KOENIG, MASTER Martinez Only if needed [address] [place] [address]- Additional Instructions: Problem List/Past Medical [...] (COVID-19) mRNA-1273 vaccine 09/28/2020 Recorded 2023-10-28: TPV20 [facility] Comment on above: Result Comment: Elec tronically Signed By: ANTONELLA KOENIG, Zack Gardiner\jenna\Date and Time Signed: 01/07/24 16:13 EDT Operative Reporton Operative Report [id number] [facility] Pathology Noteon 12-27-2023 Pathology Note [id number] [facility] Varun 12-25-2023 L Specimen: [id number] eceived: 12/25/23 Status: LAITH June Num: [id number] Spec Type: Surgical Subm Dr: Zack Berman MD FACS Tissues: A Lipoma (LT BACK) Procedures: HE, Gross/Micro L3 Age/ Patient Sex Location Account Attending Physician Nica Estrada 38/F LABELL [id number] Zack Berman MD FACS SPEC NUM: [id number] RECD: 12/25/23 STATUS: LAITH JUNE NUM: [id number] JAVI: 12/25/[address]: Zack Berman MD FACS ENTERED: 12/25/[address]: Yuriy Gonzalez SPEC TYPE: Surgical DEPT: MJ THAO ORDERED: [...] no obvious areas of hemorrhage or necrosis. Case Liner sections are submitted A1. RG Clinical history: Lipoma, path pending CPT Codes 21271 -------- -------- Specimen: [id number] Received: 12/25/23-2407 Status: LAITH June Num: [id number] Spec Type: Surgical Subm Dr: Zack Berman MD FACS Tissues: A Lipoma (LT BACK) Procedures: HE, Eric/Margy L3 -------- Patient: Nica Estrada [id number] (Continued) -------- Signed (signature on file) Darren Dias MD 12/26/23 1322 Normal [facility] Consent for Procedure/Surger yon 11-12-2023 Consent for Procedure/Surgery [id number] Normal [facility] Consent for Procedure/Surgery [id number] Normal [facility] Ambulatory Visit Summaryon 0 11-11-2023 Ambulatory Visit Summary NICA ESTRADA :1985 Visit Date:11/11/2023 Ambulatory Visit Instructions Your Care Team Attending Physician - ANTONELLA KOENIG, Zack Gardiner Primary Care Physician - Jose Castano III, [...] for choosing us for your care. Normal [facility] Physician Referralon 024 Physician Referral [id number] Normal [facility] PREG HCG QUALon 04-20-2022 , QUAL Negative Normal NEGATIVE [facility] Comment on above: Performed By: #### P REG #### [facility] [address] [place] [address] Dr. Refugio Apple CNOVon 04-12-2022 CNOV Office Visit (PLASMN ) NICA ESTRADA ([id number]) 1985 F Date Time Provider Department 04/12/22 [...] times d (more content not included)... Normal [facility] PREG HCG QUALon 04-06-2022 , QUAL Negative Normal NEGATIVE [facility] Comment on above: Performed By: #### P REG #### [facility] [address] [place] [address] Dr. Refugio Apple CHEMISTRYOrdered By: SYSTEM SYSTEM [...] CNOVon 11-10-2021 CNOV Office Visit (ELMER ) ANDINICA Douglas ([id number]) 1985 F Date Time Provider Department 11/10/21 [...] mcg, Iron 45-60 mg and calcium citrate 8265-9645 mg/day PHYSICAL EXAMINATION: Weight loss: BMI 23.2 [...] Ena Mcginnis MD Referring Provider: ENA MCGINNIS [[id number]] Allergies As of Date: 11/10/2021 Noted Allergy [...] JUANITA (a (more content not included)... [facility]19 MRI [facility] WO CON EXAMINATION: MRI CSP INE WO [...] authenticated by: MANOHAR ALONZO Date: 2021-11-10 14:28 [facility] 06-15-2021 [facility] Office Visit ([id number] ) NICA ESTRADA ([id number]) 1985 F Date Time Provider Department 06/15/21 11:30 AM ENA MCGINNIS [id number] During your visit today, we recorded the [...] call directly to schedule upper endoscopy at [phone]. Please leave a message if you receive the voicemail with your name, birthday, and reason for calling. Please expect a call or Design Clinicalshart message with appointment information and instructions. What [...] is especially important if you have had uprnh-nzlheelrg-vokii surgery in the past. How is an [...] minutes for (more content not included)... Normal [facility] HISTORY PHYSICALon HISTORY PHYSICAL HNO ID: [id number] Author: Kalpana Otero MD Service: General Surgery [...] DATE: December 16, 2020 TIME: 9:33 AM [facility] NURSING PROGon 12-16-2020 NURSING PROG HNO ID: [id number] Author: Yashira LauRn) DEEPTHI Nova Service: Nursing [...] None Electronically Signed By: Yashira Nova RN [facility] PT EDon 12-16-2020 PT ED HNO ID: [id number] Author: Manohar LauRn) DEEPTHI Conn Service: Nursing [...] None Electronically Signed By: Manohar Conn RN [facility] NURSING PROGon 10-25-2020 NURSING PROG HNO ID: [id number] Author: Diego Abad RN Service: ? Author Type: Registered Nurse Type: Nursing Progress Note Filed: 10/25/2020 2:09 AM Note Text: Nursing Progress Note Patient Name: Nica Estrada [facility][id number] Daily Note: 1999: Assessment complete see NPR. Pt present w/ nausea Zofran given. Pain 04/25 PRN pain med given. 99: Nausea concerned by pt. Paged for second like prevention. 0130: Compazine ordered/given. No cough or SOB at this time. Lap sites intact no bruising. No gas passed yet. This note was completed by: Diego Abad [facility] PLAN OF CAREon 10-25-2020 PLAN OF CARE HNO ID: [id number] Author: Davina Bonilla (Dsg.nr) Service: Pharmacy Author Type: ? Type: Plan of Care Filed: 10/25/2020 2:56 PM Note Text: Pharmacy Discharge Medication Service: This patient has elected to receive their discharge prescriptions through the [facility] Bedside Prescription Delivery program. The prescriptions are currently being processed. A follow-up note will be entered once the prescriptions have been filled and delivered to the patient. Please contact me with any questions or updates to the patient's discharge medications. Davina Bonilla (Dsg.nr) DCT Contact Info: [id number] [facility] PLAN OF CARE HNO ID: [id number] Author: Davina Bonilla (Dsg.nr) Service: Pharmacy Author Type: ? Type: Plan of Care Filed: 10/25/2020 2:56 PM Note Text: TELETYPE TECHNICIAN BEDSIDE DELIVERY SURVEY 1. Patient to use [facility] Bedside Delivery - YES Insurance Information as follows: 2. Insurance card on file - YES 3. Credit card for payment - N/A [facility] PLAN OF CARE HNO ID: [id number] Author: Davina Bonilla (Dsg.nr) Service: Pharmacy Author Type: ? Type: Plan [...] or your Primary Care Provider. Davina Bonilla (Blender/Braze Applicator) PAGER: [phone] October 25, 2020 2:56 PM [facility] PROGRESSon 10-25-2020 PROGRESS HNO ID: [id number] Author: Presley Torrez Service: General Surgery Author [...] DATE: October 25, 2020 TIME: 7:02 AM [facility] PROGRESS HNO ID: [id number] Author: Juliet Lilly Service: General Surgery Author [...] care Juliet Lilly MD General Surgery PGY1 [facility] PT EDon 10-25-2020 PT ED HNO ID: [id number] Author: Geoff Hector Service: Nutrition Therapy Author Type: Oil Operator Type: Patient Education Filed: 10/25/2020 12:04 PM [...] October 25, 2020 TIME: 12:04 PM PAGER: [phone] [facility] ANES POSTPROC EVALon 021 ANES POSTPROC EVAL HNO ID: [id number] Author: Brandon Stoddard Service: Anesthesiology Author Type: [...] October 24, 2020 TIME: 4:58 PM CSN: [id number] [facility] ANES PRE-OPon 10-24-2020 ANES PRE-OP HNO ID: [id number] Author: Colin Archer Service: Anesthesiology Author Type: [...] October 24, 2020 TIME: 1:18 PM CSN: [id number] [facility] NURSING PROGon 10-24-2020 NURSING PROG HNO ID: [id number] Author: Sridevi LauRn) DEEPTHI Triana Service: Nursing Author Type: Registered Nurse Type: Nursing Progress Note Filed: 10/24/2020 6:56 PM Note Text: Nursing Progress Note Patient Name: Nica Estrada Patient Location: [id number]/[facility]-[id number] Transfer Note: Patient transferred into room/unit PK325 in stable condition. Actions taken: No futher actions taken at this time. at bedside. Will continue to monitor and check with patient. This note was completed by: Sridevi Triana RN [facility] NURSING PROG HNO ID: [id number] Author: Gege (Rn) DEEPTHI Kenney Service: Nursing Author Type: Registered Nurse Type: Nursing Progress Note Filed: 10/24/2020 1:38 PM Note Text: PATIENT EDUCATION TOPIC: PROCEDURE / SURGERY: Pre-op Teaching: Protocols PATIENT NAME: Nica Estrada PATIENT LOCATION: OR BURNA/FV OR POOL READINESS TO LEARN COGNITIVE ABILITY: [...] None Electronically Signed By: Gege Kenney RN [facility] OPERATIVE NOon 10-24-2020 OPERATIVE NO HNO ID: [id number] Author: Ena Mcginnis Service: General Surgery Author Type: Physician Type: Operative Report Filed: 10/26/2020 11:07 AM Note Text: [facility] - Operative Report NICA ESTRADA : 1985 AGE: 35. SEX: F PATIENT TYPE: I HOSP SVC: GENS LOCATION: [facility] ATTENDING PHYSICIAN: Ena Mcginnis MD CSN NUMBER: [id number] DATE OF SURGERY/PROCEDURE: 10/24/2020 INCISION/PROCEDURE START TIME: 2:28 PM INCISION CLOSE/PROCEDURE END TIME: 4:31 PM PREOPERATIVE DIAGNOSIS: Morbid obesity, BMI of 42. POSTOPERATIVE DIAGNOSIS: 1. Morbid obesity. 2. Hiatal hernia. SURGEON: Ena Mcginnis MD SENIOR ANALYSIS SPECIALIST: Presley Torrez MD. SURGERY/PROCEDURE: 1. Laparoscopic repair [...] performed in the retroesophageal window and a Conklin drain was passed. It was used to retract the esophagus. The posterior cruroplasty was completed using 1 [id number] stitch using silk to tighten the sharri. [...] Torrez assisted in the absence of qualified neurosurgical nurse practitioner help. He created the pouch and created the jejunojejunostomy. Ena Mcginnis MD TA:[id number] /[id number] Normal [facility] Confirm Blood Typeon 021 ABO/RH(D) Positive Normal [facility] Comment on above: Performed By: #### C ONABO ####[facility] [place], [place] [phone] HISTORY PHYSICALon HISTORY PHYSICAL HNO ID: [id number] Author: Amanda Shnae (Pa) Service: ? Author Type: Physician Geodetic Technician Type: HANDP Filed: 10/17/2020 2:58 PM Note [...] fevers. Neuro: No history of TIA's, stroke, TOOLMAN tumor, impaired sensorium, hemiplegia, paraplegia or quadraplegia. No neurological symptoms or problems. Respiratory: asthma, uses rescue about once every few weeks; no current resp sx. Had acute bronchitis last Fall, flared asthma for a while but is better now. Has environmental allergies Cardiovascular: No history of HTN requiring medication, no history of angina, CHF, ND, cardiac surgery or stents. Denies rest pain, gangrene or revascularization/amputation for PVD. No history of cardiovascular symptoms or problems. GI: Positive for GERD, no other GI sx. : No history of dysuria, frequency or incontinence,, stones or chronic kidney disease MANAGER OF DEVELOPMENT: Negative for abnormal vaginal bleeding, abnormal vaginal [...] 2020 TIME: 2:42 PM PAGER/CONTACT #: Normal [facility] Type and SCR (30D)on 021 ABO/RH(D) Positive Normal [facility] Comment on above: Performed By: #### T [id number] ####[facility] [place], [place] [phone] HOSPon 09-27-2020 HOSP Patient:Nica Estrada MRN: Height:5' 0 (1.524 m) [...] 44.1 % 10/17/2020 46.0 36.0 Progress Notes ([facility]): Marcella Saldana RN 10/13/2020 2:32 PM [...] Strength Tylenol. Marcella Saldana RN Progress Notes ([address]): Ena Mcginnis MD 10/13/2020 5:31 PM Signed SURGERY PREOPERATIVE VISIT NOTE Name: Nica Estrada Medical Record: [id number] Encounter No.: [id number] Nica Estrada is a 35 year old [...] regarding unsatisfactory weight loss as well as intermediate weight regain. I have also discussed medical [...] on recommendations of the Governor of the [facility]. Although we will perform appropriate precautions [...] patient. Ena Mcginnis MD Previous Version Normal [facility] HEPATITIS B SURFACE AB IMMUN ITY, QNon 08-11-2020 HEPATITIS B SURFACE AB IMMUNITY, QN >1000 Normal > OR = 10 [facility] Comment on above: Result Comment: Patient has immunity to hepatitis B virus. For additional information, please refer to http://education.Yotpo/faq/OQF991 (This link is being provided for informational/ educational purposes only). Performed By: #### [id number] #### [facility]-[address], [address] [place] [id number] Sales Product Manager: Sixto Chandler MD Vital Signs Date Time Vital Sign Value Performing Clinician Facility 09-21-2024 10:03-0500 Body mass index (BMI) [Ratio] 30.8 kg/m2 Godwin Keyes NP Work Phone: [facility] 09-21-2024 10:03-0500 Body weight 73.94 kg Godwin Keyes NP Work Phone: [facility] 09-21-2024 10:03-0500 Diastolic blood pressure 93 mm[Hg] Godwin Keyes NP Work Phone: [facility] 09-21-2024 10:03-0500 Heart rate 86 /min Godwin Keyes NP Work Phone: [facility] 09-21-2024 10:03-0500 Systolic blood pressure 142 mm[Hg] Godwin Keyes NP Work Phone: [facility] 06-01-2024 09:53-0400 Body height 154.9 cm Godwin Keyes INVENTORY AND PRICING ASSOCIATE Work Phone: [facility] 06-01-2024 09:53-0400 Body mass index (BMI) [Ratio] 29.48 kg/m2 Godwin Keyes INVENTORY AND PRICING ASSOCIATE Work Phone: [facility] 06-01-2024 09:53-0400 Body weight 70.76 kg Godwin Keyes INVENTORY AND PRICING ASSOCIATE Work Phone: [facility] 06-01-2024 09:53-0400 Diastolic blood pressure 108 mm[Hg] Godwin Keyes INVENTORY AND PRICING ASSOCIATE Work Phone: [facility] 06-01-2024 09:53-0400 Heart rate 80 /min Godwin Keyes INVENTORY AND PRICING ASSOCIATE Work Phone: [facility] 06-01-2024 09:53-0400 Systolic blood pressure 146 mm[Hg] Godwin Keyes INVENTORY AND PRICING ASSOCIATE Work Phone: [facility] 10-16-2022 12:53-0500 Diastolic blood pressure 80 mm[Hg] Otis Marcin [facility] 10-16-2022 12:53-0500 Heart rate 55 /min Otis Marcin [facility] 10-16-2022 12:53-0500 Mean blood pressure 89 mm[Hg] Otis Marcin [facility] 10-16-2022 12:53-0500 Respiratory rate 18 /min Otis Marcin [facility] 10-16-2022 12:53-0500 Systolic blood pressure 108 mm[Hg] Otis Marcin [facility] 08-28-2022 08:52-0500 Heart rate 70 /min Otis Marcin [facility] 08-28-2022 08:52-0500 SaO2% (BldA) [Mass fraction] 100 % Otis Marcin [facility] 08-28-2022 08:52-0500 Respiratory rate 16 /min Otis Marcin [facility] 08-28-2022 08:52-0500 Diastolic blood pressure 80 mm[Hg] Otis Marcin [facility] 08-28-2022 08:52-0500 Mean blood pressure 93 mm[Hg] Otis Marcin [facility] 08-28-2022 08:52-0500 Systolic blood pressure 121 mm[Hg] Otis Macrin [facility] 08-28-2022 08:46-0500 Heart rate 70 /min Otis Marcin [facility] 08-28-2022 08:46-0500 SaO2% (BldA) [Mass fraction] 100 % Otis Marcin [facility] 08-28-2022 08:46-0500 Body temperature 97.52 [degF] Otis Marcin [facility] 08-28-2022 08:46-0500 Diastolic blood pressure 69 mm[Hg] Otis Marcin [facility] 08-28-2022 08:46-0500 Mean blood pressure 80 mm[Hg] Otis Marcin [facility] 08-28-2022 08:46-0500 Systolic blood pressure 104 mm[Hg] Otis Marcin [facility] 08-28-2022 08:46-0500 Respiratory rate 16 /min Otis Marcin [facility] 08-28-2022 08:41-0500 Diastolic blood pressure 64 mm[Hg] Otis Marcin [facility] 08-28-2022 08:41-0500 Systolic blood pressure 102 mm[Hg] Otis Marcin [facility] 08-28-2022 08:40-0500 Heart rate 71 /min Otis Marcin [facility] 08-28-2022 08:40-0500 Respiratory rate 12 /min Otis Marcin [facility] 08-28-2022 08:40-0500 SaO2% (BldA) [Mass fraction] 100 % Otis Marcin [facility] 08-28-2022 08:35-0500 Respiratory rate 12 /min Otis Marcin [facility] 08-28-2022 08:30-0500 Respiratory rate 12 /min Otis Marcin [facility] 08-28-2022 07:17-0500 Mean blood pressure 78 mm[Hg] Otis Marcin [facility] 08-28-2022 07:17-0500 Respiratory rate 16 /min Otis Marcin [facility] 08-28-2022 07:17-0500 Body temperature 98.24 [degF] Otis Marcin [facility] 04-12-2022 14:47-0400 Body height 152.4 cm Lazara Woods MD Work Phone: [facility] 04-12-2022 14:47-0400 Body temperature 98.91 [degF] Lazara Woods MD Work Phone: [facility] 04-12-2022 14:47-0400 Body weight 55.52 kg Lazara Woods MD Work Phone: [facility] 04-12-2022 14:47-0400 Diastolic blood pressure 92 mm[Hg] Lazara Woods MD Work Phone: [facility] 04-12-2022 14:47-0400 Heart rate 65 /min Lazara Woods MD Work Phone: [facility] 04-12-2022 14:47-0400 Systolic blood pressure 140 mm[Hg] Lazara Woods MD Work Phone: [facility] 03-01-2022 14:59-0400 Diastolic blood pressure 86 mm[Hg] Mixon SALAM [facility] 03-01-2022 14:59-0400 Heart rate 52 /min Mixon SALAM [facility] 03-01-2022 14:59-0400 Systolic blood pressure 130 mm[Hg] Mixon SALAM [facility] Encounters Encounter Date Encounter Type Care Provider Facility Start: 09-21-2024 End: 09-21-2024 Bamboo flowsheet Godwin Keyes INVENTORY AND PRICING ASSOCIATE Work Phone: [facility] [address] Start: 09-21-2024 End: 09-21-2024 Bamboo flowsheet Godwin Keyes INVENTORY AND PRICING ASSOCIATE Work Phone: [facility] [address] Start: 09-21-2024 End: 09-21-2024 Office outpatient visit 15 minutes Godwin Keyes INVENTORY AND PRICING ASSOCIATE Work Phone: [facility] [employer] [facility] Comment on above: Migraine without sta tus migrainosus, not intractable, unspecified migraine type (CMS/HCC) (Primary Dx); Myalgia; Cervical spondylosis; Fibromyalgia; Degeneration of intervertebral disc of lumbar region, unspecified whether pain present Start: 09-21-2024 End: 09-21-2024 ambulatory GODWIN KEYES Not Available Start: 06-29-2024 End: 06-29-2024 ambulatory Aaliyah Hampton MD Facility: [facility] Start: 06-01-2024 End: 06-01-2024 Bamboo flowsheet Godwin Keyes INVENTORY AND PRICING ASSOCIATE [facility] Start: 06-01-2024 End: 06-01-2024 Bamboo flowsheet Godwin Keyes INVENTORY AND PRICING ASSOCIATE [facility] Start: 06-01-2024 End: 06-01-2024 ambulatory GODWIN KEYES Not Available Start: 06-01-2024 End: 06-01-2024 Office outpatient visit 15 minutes Godwin Keyes INVENTORY AND PRICING ASSOCIATE [facility] Comment on above: Migraine without sta tus migrainosus, not intractable, unspecified migraine type (CMS/HCC) (Primary Dx); Chronic tension-type headache, not intractable; Cervicogenic headache; Occipital neuralgia of right side; Myalgia; Cervical spondylosis; Fibromyalgia; DDD (degenerative disc disease), lumbar Start: 04-06-2024 End: 04-06-2024 ambulatory GODWINJoni KEYES Not Available Start: 02-17-2024 End: 02-17-2024 ambulatory AUDREY VELA Not Available Start: 01-20-2024 End: 01-20-2024 ambulatory Aaliyah Hampton MD Facility:[facility] Start: 01-07-2024 End: 01-08-2024 ambulatory Zack BERMAN Facility:[facility] Start: 01-07-2024 End: 01-07-2024 Patient encounter procedure Zack BERMAN [facility] Start: 01-06-2024 End: 01-06-2024 ambulatory Aaliyah Hampton MD Facility:[facility] Start: 01-03-2024 ambulatory Zack BERMAN Facility:[facility] Start: 12-25-2023 End: 12-25-2023 ambulatory Zack Berman Facility:[facility] Start: 12-25-2023 End: 12-26-2023 ambulatory Zack BERMAN [facility] Work Phone: Start: 12-25-2023 End: 12-25-2023 Departed Referred MD Zack Berman Work Phone: [facility] Start: 12-16-2023 End: 12-16-2023 ambulatory Aaliyah Hampton MD Facility:[facility] Start: 12-09-2023 End: 12-09-2023 ambulatory Aaliyah Hampton MD Facility:[facility] Start: 12-02-2023 End: 12-02-2023 ambulatory Aaliyah Hampton MD Facility:[facility] Start: 11-11-2023 End: 11-12-2023 ambulatory Zack BERMAN Facility: [place] Start: 11-11-2023 End: 11-26-2023 Pre-admission assessment Zack BERMAN [facility] Start: 11-04-2023 End: 11-04-2023 ambulatory Aaliyah Hampton MD Facility: [place] Start: 10-21-2023 ambulatory Zack BERMAN Facility:[facility] Start: 09-30-2023 End: 09-30-2023 ambulatory Aaliyah Hampton MD Facility: [facility] Start: 10-16-2022 End: 10-16-2022 Pain Management Otis Burch [facility] Start: 08-28-2022 End: 08-28-2022 Pain Management Otis Burch [facility] Start: 05-04-2022 End: 05-05-[address] [...] procedure Oral DIETZ [facility] Start: 11-10-2021 End: 11-11-2021 ambulatory [...] Comment on above: Performed By: #### [id number] ####[facility] [address] [place], [place] [phone] Start: 05-09-2020 Adult depression screening assessment Lazara Woods MD Work Phone: Start: 04-18-2020 Colonoscopy Oral DIETZ Start: 04-18-2020 Esophagogastroduodenoscopy Oral DIETZ section Oral DIETZ section Zack Albarado Cholecystectomy Oral DIETZ Fasciotomy of foot Zack HOFFMAN Trevor-en-Y gastrojejunostomy Zack BERMAN Plan of Treatment Date Care Activity Detail Author Start: 01-04-2025 End: 01-04-2025 Patient encounter procedure 01/04/2025 2:40 PM EDT Office Visit [facility] [address] [place] [address] Lazara Wagner, SHELIA [address] [place] [phone] [facility] Start: 09-21-2024 End: 09-21-2024 Patient encounter procedure [facility] Comment on above: Arrived Start: 05-17-2024 Influenza vaccination Influenza Vacc ine (#1) [facility] Start: 2023 Screening for malign ant neoplasm of breast Mammogram [facility] Start: 05-17-2022 Influenza vaccination INFLUENZA (#1) [facility] Start: 05-09-2021 Adult depression screening assessment DEPRESSION SCREENING [facility] Start: 04-10-2021 COVID-19 VACCINE (3 - Booster for Moderna series) COVID-19 VACCINE (3 - Booster for Moderna series) [facility] Start: 2013 HPV TESTING HPV TESTING [facility] Start: 2013 Screening for malign ant neoplasm of cervix [facility] Start: 02-22-2004 PAP TESTING PAP TESTING [facility] Start: 02-22-2004 Screening for malign ant neoplasm of cervix Pap Smear [facility] Start: 2002 Urine microalbumin profile DTAP,TDAP,TD (1 - Tdap) [facility] Start: 2001 ANNUAL PCP TEAM MACHINE OPERATIONS SUPERVISOR 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 VISIT ANNUAL PCP TEAM CHRONIC DISEASE VISIT [facility] Start: 2001 BP CONTROLLED (<130/80) BP CONTROLLE D (<130/80) [facility] Start: 2001 HEPATITIS C SCREENING HEPATITIS C SC RAPHAEL [facility] Start: 2001 HIV SCREENING HIV SCREENING [facility] Start: 2001 SPIROMETRY SPIROMETRY [facility] Start: 1989 PNEUMOCOCCAL (1 - PCV) PNEUMOCOCCAL (1 - PCV) [facility] Immunizations Immunization Date Immunization Notes Care Provider Fa cili 07-14-2024 influenza virus vaccine, unspecified formulation Godwin Keyes INVENTORY AND PRICING ASSOCIATE Work Phone: [facility] 11-11-2020 SARS-CoV-2 (COVID-19 ) mRNA-1273 vaccine Zack BERMAN [facility] Comment on above: Result Comment: 2023: TPV20 09-28-2020 COVID-19 vaccine, full dose (MODERNA) Lazara Woods MD Work Phone: [facility] Comment on above: Result Comment: 2023: TPV20 07-01-2020 influenza, injectable, quadrivalent, preservative free Lazara Woods MD Work Phone: [facility] 07-01-2020 influenza virus vaccine, unspecified formulation Godwin Keyes INVENTORY AND PRICING ASSOCIATE Work Phone: [facility] 06-17-2020 influenza virus vaccine, unspecified formulation Lazara Woods MD Work Phone: [facility] NEGATED: Highlighted row has not occurred!11-11-2023 influenza virus vaccine, unspecified formulation Zakc BERMAN [facility] Payers Date Payer Category Payer Self-pay [id number] 2022 Medicaid [id number] 2022 Private Health Insurance 2022 Unknown 2022 Unknown [id number] 2018 Medicaid [facility] MEDICAID [facility] [employer] MEDICAID [id number] 2018-Present [phone] [address] [place] [address] Medicaid [id number]. [id number] 1985 Unknown [id number] 2.840.1.878161.3.579.2. 593 1985 Unknown [id number] 2.840.1.473563.3.579.2. 593 1985 Unknown [id number] 2.840.1.016651.3.579.2. 593 1985 Unknown [id number] 2.840.1.115047.3.579.2. 59 1985 Unknown [id number] 2.840.1.257068.3.579.2. 59 1985 Unknown [id number] ..1.181325.3.579.2. 59 1985 Unknown [id number] .1.712155.3.579.2. 59 1985 Unknown [id number] .1.156720.3.579.2. 72 1985 Unknown [id number] .1.736774.3.579.2. 727 1985 Unknown [id number] .1.473822.3.579.2. 727 1985 Unknown [id number] 11.01.830.1.524645.3.579.2. 196 1985 Unknown [id number] 11.01.830.1.002462.3.579.2. 1983 Unknown [id number] 11.01.830.1.036724.3.579.2. 196 1985 Unknown [id number] 11.01.830.1.821826.3.579.2. 1983 Unknown [id number] 2840.1.065793.3.579.2. 1983 Unknown [id number] 2840.1.157119.3.579.2. 196 1983 Unknown [id number] 2.16.840.1.352996.3.579.2. 196 1983 Unknown [id number] 2.16.840.1.148027.3.579.2. 196 1983 Unknown [id number] 2.16.840.1.802761.3.579.2. 9 1985 Unknown [id number] 2.16.840.1.301214.3.579.2. 9 1985 Unknown [id number] 2.16.840.1.168665.3.579.2. 1258 1983 Unknown [id number] 2.16.840.1.970768.3.579.2. 1259 1959 Unknown [id number] Unknown [id number] 2.16.840.1.402847.3.579.2. 531 Social History Date Type Detail Facility Start: 03-01-2022 End: 11-11-2023 Tobacco smoking status Never smoked tobacco (finding) [facility] Tobacco smoking status Never [facility] Start: 05-31-2024 End: 09-21-2024 Sex Assigned At Female [facility] Start: 06-27-2017 End: 02-06-2024 Tobacco use and exposure Smokeless tobacco non-user [facility] Start: 04-12-2022 End: 09-21-2024 Alcohol intake Current drinker of alcohol (finding) [facility] Start: 04-12-2022 End: 09-21-2024 Alcohol intake [facility] Start: 01-05-2020 History SDOH Alcohol Frequency 3 [facility] Start: 01-05-2020 History SDOH Alcohol Std Drinks 1 [facility] Start: 10-17-2020 History SDOH Alcohol Comment once a month, 1 drink [facility] Start: 1985 Sex Assigned At Not on file C [facility] Start: 04-01-2022 End: 04-11-2022 Exposure to SARS-CoV-2 (event) Not sure [facility] Start: 1985 Sex Assigned At Female F [facility] Start: 02-06-2024 [facility] History of tobacco use Cigarette Smoker [facility] How often to you hav e a drink containing alcohol? Monthly or less [facility] How many standard drinks containing alcohol do you have on a typical day? 1 or 2 [facility] How often do you hav e 6 or more drinks on 1 occasion? Never [facility] Start: 05-31-2024 Alcohol Comment caffeine: coff ee and pop on occasion [facility] Functional Status Date Assessment Result Facility 10-16-2022 Functional Status N/A [facility] 08-28-2022 Functional Status N/A [facility] Clinical Notes 05-04-2020 to 09-21-2024 Godwin Keyes NP - 09/21/2024 10:00 AM Buddy Keyes NP - 06/01/2024 9:40 AM EDT Note Date & Type Note Facility 09-21-2024 History of Present illness Narrative Images from the original note were not included. Chief Complaint Patient presents with Migraine Back Pain Neck Pain Occipital Neuralgia- R Subjective Nica Estrada, 39 y.o., female Patient is here for follow up to migraines and neck pain. She continues on Nurtec every other day and is doing well with this. She admits about 2 episodes per month lasting 1-2 hours. Admits light/ sound sensitivity and visual disturbance at times. She continues following with pain management for neck and back pain. Denies any weakness or falls. She will use a massage pillow on her shoulders, and uses a heating pad. Muscle relaxers are also helpful. She denies further concern today. Review of Systems Constitutional: Negative for appetite change, fatigue and fever. Respiratory: Negative for cough, shortness of breath and wheezing. Cardiovascular: Negative for chest pain, palpitations and leg swelling. Gastrointestinal: Negative for abdominal pain, constipation, diarrhea and nausea. Musculoskeletal: Positive for arthralgias, back pain, myalgias and neck pain. Negative for gait problem. Neurological: Positive for headaches. Negative for dizziness, tremors and numbness. Past Medical History: Diagnosis Date Acid reflux Anxiety Depression (CMS/HCC) Depression with anxiety Fibromyalgia Hypertension (CMS/HCC) Migraine (CMS/HCC) PTSD (post-traumatic stress disorder) (CMS/HCC) Past Surgical History: Procedure Laterality Date SECTION, LOW TRANSVERSE CHOLECYSTECTOMY 12/1995 EGD & dilation FOOT FASCIOTOMY Right FOOT SURGERY Right 04/2018 for plantar fasciitis GASTRIC BYPASS 10/24/2020 trevor-en-Y, hiatal hernia repair HYSTERECTOMY 2005 KNEE SURGERY 2013 ORTHOPEDIC SURGERY 05/2006 Family History Problem Relation Name Age of Onset Hypertension Father Alcohol abuse Brother Depression Brother Social History Tobacco Use Smoking status: Every Day Types: Cigarettes Smokeless tobacco: Never Substance Use Topics Alcohol use: Yes Comment: caffeine: coffee and pop on occasion Allergies: Imitrex [sumatriptan], Wound dressing adhesive, and Latex Vitals: 09/21/24 1003 BP: (!) 142/93 Pulse: 86 Body mass index is 30.8 kg/m . weight: 163 lb Neurologic exam: Mental status: Well nourished, well developed and in no acute distress. Grossly oriented to person, place and time. Recent and remote memory are intact. Language is fluent without aphasia. Attention and concentration are normal. Fund of knowledge is appropriate for level of education. Cranial nerves: CN II: Visual acuity is normal. Visual burnham full to confrontation. CN III, IV, : pupils equal round and reactive to light. Extraocular movements intact. No ptosis present. CN V: Facial sensation is normal. CN VII: Full and symmetric facial movement. CN VIII: Hearing is intact. CN IX and X: Palate elevates symmetrically. CN XI: Shoulder shrug is normal bilaterally. CN XII: Tongue is midline without atrophy or fasciculation. Motor: RUE Strength deltoid, , biceps , triceps , wrist extensors , wrist flexor , home organizer strength 5/5. LUE Strength deltoid , biceps , triceps , wrist extensors , wrist flexor , home organizer strength 5/5. RLE Strength illopsoas, quadriceps, tibialis anterior, and gastrocnemius strength 5/5. LLE Strength illopsoas, quadriceps, tibialis anterior, and gastrocnemius strength 5/5. Normal tone x4 extremities. Bulk is normal. Lhermitte sign is negative. Neck with full range of motion. Sensory: Sensation is intact to light touch throughout distal extremities. Reflexes: RUE biceps reflex 2+ , brachioradialis reflex 2+. LUE biceps reflex 2+ , brachioradialis reflex 2+. RLE knee reflex 2+. LLE knee reflex 2+. Rodriguez's Sign negative. Coordination: [id number] testing is normal Rapid alternating movements are normal Gait: Normal Review and summary of old records: LABS on 07/02/23: JUANITA negative, CK, Myoglobin, and magnesium level WNL MRI lumbar spine without contrast from 04/21/22: Discogenic changes most significant at L5-S1 where a moderate-sized posterior sub-ligamentous disc herniation is observed with inferior migration. Modic type I inflammatory changes/bone edema inferior end plate of L5 superior endplate of S1. There are multiple levels of facet arthropathy. MRI cervical spine without contrast from 11/10/21: Degenerative discogenic changes, most significant at C6-C7 where moderate left foraminal stenosis is observed. EMG from January 2021: Right median sensory neuropathy. Cervical x-rays from January 2021: Outside office no reported cervical osteophytes. EMG bilateral upper extremities from May 22, 2019 normal. Assessment/Plan Diagnoses and all orders for this visit: Migraine without status migrainosus, not intractable, unspecified migraine type (CMS/HCC) Chronic migraines with aura since high school that initially occurred most days of the week. It sounds like she was experiencing a combination of tension type headaches, cervicogenic headaches, and migraines with associated visual aura. Previously amenable to NSAIDs but since having a gastric bypass surgery in October 2020 she can no longer take these. Nurtec QOD has been very beneficial as a preventative, and currently breakthrough headaches are lasting less than 2 hours. PLAN: - Continue Nurtec 75 mg ODT to as needed. Tolerating without side effects. - May consider Ajovy in the future as indicated should migraine frequency again increase. - Stopped propranolol, verapamil, amitriptyline, and topiramate (ineffective) - Triptans (caused intolerable nausea even low doses) and cannot have NSAIDs due gastric bypass - Failed methocarbamol and cyclobenzaprine - Currently taking tizanidine by another provider. (Stopped Baclofen 5mg TID). - Recommended adequate hydration, sleep hygiene, and regular exercise as tolerated. Chronic tension-type headache, not intractable See above. Cervicogenic headache See above. Occipital neuralgia of right side The patient was previously having symptoms suspicious for an occipital neuralgia on the right. (Posterior head pain the in the distribution of the greater and lesser occipital nerves). Overall improved and not a primary complaint today. PLAN: - Could consider right ONB in the future as indicated. Myalgia The patient does have complaints of myalgia which is worse in the posterior neck and trapezius muscles. Possibly also part of her fibromyalgia though degenerative cervical changes are likely contributing. CK, JUANITA, myoglobin, and MG all WNL. Previous trigger injections have been beneficial. PLAN: - Repeat trigger injections in the trapezius muscles as indicated. - Currently on tizanidine by another provider. Cervical spondylosis Cervical MRI 11/10/2021 with degenerative changes at C5-C6 and C6-C7 with moderate neural foraminal stenosis at C6-C7 on the left. No weakness or reflex changes on clinical exam. PLAN: - Continue follow up with pain mangement (Carlos) - Medications as above Fibromyalgia History of fibromyalgia, with previous evaluation with Rheumatology (though not for several years). This may be causative for her painful paresthesias and fatigue, especially given the sporadic nature and lack of dermatomal distribution. PLAN: - As above DDD (degenerative disc disease), lumbar Painful paresthesias in lower extremities with longer periods of sitting. Also occurring when up and about. PT was previously beneficial. Lumbar MRI with degenerative disc disease and facet arthropathy which could be causing a lot of her isolated back pain. The patient denies any weakness, falls or red flag symptoms. PLAN: - Continue following with pain management ([facility]) Follow up in 3-4 months or sooner if symptoms worsen, fail to improve, or should a new neurological concern arise. Pt has been fully educated on their diagnosis, treatment options, follow up plan, and return instructions documented in this encounter [facility] 06-01-2024 History of Present illness Narrative Images from the original note were not included. Chief Complaint Patient presents with Migraine Neck Pain Back Pain Subjective Nica Estrada, 39 y.o., female Patient is here for follow up to migraines and neck pain. She was started on Ajovy at last visit and reports that she never started this. She continues on Nurtec every other day and is doing okay with this. She states migraines have been well controlled since last seen. She continues following with pain management for neck and back pain, next follow up is in 2 weeks. Denies any weakness or falls. She will use a massage pillow on her shoulders, and uses a heating pad. She denies further concern today. Review of Systems Constitutional: Negative for appetite change, fatigue and fever. Respiratory: Negative for cough, shortness of breath and wheezing. Cardiovascular: Negative for chest pain, palpitations and leg swelling. Gastrointestinal: Negative for abdominal pain, constipation, diarrhea and nausea. Musculoskeletal: Positive for arthralgias, back pain, myalgias and neck pain. Negative for gait problem. Neurological: Positive for headaches. Negative for dizziness, tremors and numbness. Past Medical History: Diagnosis Date Acid reflux Anxiety Depression (CMS/HCC) Depression with anxiety Fibromyalgia Hypertension (CMS/HCC) Migraine (CMS/HCC) PTSD (post-traumatic stress disorder) (CMS/HCC) Past Surgical History: Procedure Laterality Date SECTION, LOW TRANSVERSE CHOLECYSTECTOMY 12/1995 EGD & dilation FOOT FASCIOTOMY Right FOOT SURGERY Right 04/2018 for plantar fasciitis GASTRIC BYPASS 10/24/2020 trevor-en-Y, hiatal hernia repair HYSTERECTOMY 2005 KNEE SURGERY 2013 ORTHOPEDIC SURGERY 05/2006 Family History Problem Relation Name Age of Onset Hypertension Father Alcohol abuse Brother Depression Brother Social History Tobacco Use Smoking status: Every Day Types: Cigarettes Smokeless tobacco: Never Substance Use Topics Alcohol use: Yes Comment: caffeine: coffee and pop on occasion Allergies: Imitrex [sumatriptan], Wound dressing adhesive, and Latex Vitals: 06/01/24 0953 BP: (!) 146/108 Pulse: 80 Body mass index is 29.48 kg/m . weight: 156 lb Neurologic exam: Mental status: Well nourished, well developed and in no acute distress. Grossly oriented to person, place and time. Recent and remote memory are intact. Language is fluent without aphasia. Attention and concentration are normal. Fund of knowledge is appropriate for level of education. Cranial nerves: CN II: Visual acuity is normal. Visual burnham full to confrontation. CN III, IV, : pupils equal round and reactive to light. Extraocular movements intact. No ptosis present. CN V: Facial sensation is normal. CN VII: Full and symmetric facial movement. CN VIII: Hearing is intact. CN IX and X: Palate elevates symmetrically. CN XI: Shoulder shrug is normal bilaterally. CN XII: Tongue is midline without atrophy or fasciculation. Motor: RUE Strength deltoid, , biceps , triceps , wrist extensors , wrist flexor , home organizer strength 5/5. LUE Strength deltoid , biceps , triceps , wrist extensors , wrist flexor , home organizer strength 5/5. RLE Strength illopsoas, quadriceps, tibialis anterior, and gastrocnemius strength 5/5. LLE Strength illopsoas, quadriceps, tibialis anterior, and gastrocnemius strength 5/5. Tone Normal tone x4 extremities. Lhermitte sign is negative. Neck with full range of motion. Sensory: Sensation is intact to light touch throughout distal extremities. Reflexes: RUE biceps reflex 2+ , brachioradialis reflex 2+. LUE biceps reflex 2+ , brachioradialis reflex 2+. RLE knee reflex 2+. LLE knee reflex 2+. Rodriguez's Sign negative. Coordination: Aqbrlj-rl-iers testing is normal Rapid alternating movements are normal Gait: Normal Review and summary of old records: LABS on 07/02/23: JUANITA negative, CK, Myoglobin, and magnesium level WNL MRI lumbar spine without contrast from 04/21/22: Discogenic changes most significant at L5-S1 where a moderate-sized posterior sub-ligamentous disc herniation is observed with inferior migration. Modic type I inflammatory changes/bone edema inferior end plate of L5 superior endplate of S1. There are multiple levels of facet arthropathy. MRI cervical spine without contrast from 11/10/21: Degenerative discogenic changes, most significant at C6-C7 where moderate left foraminal stenosis is observed. EMG from January 2021: Right median sensory neuropathy. Cervical x-rays from January 2021: Outside office no reported cervical osteophytes. EMG bilateral upper extremities from May 22, 2019 normal. Assessment/Plan Diagnoses and all orders for this visit: Migraine without status migrainosus, not intractable, unspecified migraine type (CMS/HCC) Chronic migraines with aura since high school that initially occurred most days of the week. It sounds like she was experiencing a combination of tension type headaches, cervicogenic headaches, and migraines with associated visual aura. Previously amenable to NSAIDs but since having a gastric bypass surgery in October 2020 she can no longer take these. Baclofen, has helped some with the cervicogenic component. Nurtec QOD has been very beneficial as a preventative, though did have an exacerbation more recently. Ajovy was ordered at her last visit though she notes improvement and is again taking Nurtec as a preventative every other day with good control of her symptoms. PLAN: - Continue Nurtec 75 mg ODT to as needed. Tolerating without side effects. - May consider Ajovy in the future as indicated should migraine frequency again increase. - Stopped propranolol, verapamil, amitriptyline, and topiramate (ineffective) - triptans (caused intolerable nausea even low doses) and cannot have NSAIDs due gastric bypass - Failed methocarbamol and tizanidine and cyclobenzaprine - Continue Baclofen 5mg TID, prn; side effects were discussed - Recommended adequate hydration, sleep hygiene, and regular exercise as tolerated. Chronic tension-type headache, not intractable See above. Cervicogenic headache See above. Occipital neuralgia of right side The patient reports symptoms over the last couple of weeks which raise concern for an occipital neuralgia on the right. She reports that she was experiencing posterior head pain the in the distribution of the greater and lesser occipital nerves. Certainly this may be related to her DDD of the cervical spine. Overall improved today per patient. PLAN: - Could consider right ONB in the future as indicated. Myalgia The patient does have complaints of myalgia which is worse in the posterior neck and trapezius muscles. Possibly also part of her fibromyalgia though degenerative cervical changes are likely contributing. She does take baclofen which is somewhat helpful though she does admit to limited use due to fatigue. CK, JUANITA, myoglobin, and MG all WNL. Previous trigger injections have been beneficial. PLAN: - Repeat trigger injections in the trapezius muscles as indicated - Ok to continue as needed use of baclofen Cervical spondylosis Cervical MRI 11/10/2021 with degenerative changes at C5-C6 and C6-C7 with moderate neural foraminal stenosis at C6-C7 on the left. No weakness or reflex changes on clinical exam. PLAN: - Continue follow up with pain mangement (Carlos) - Medications as above Fibromyalgia History of fibromyalgia, with previous evaluation with Rheumatology (though not for several years). This may be causative for her painful paresthesias and fatigue, especially given the sporadic nature and lack of dermatomal distribution. PLAN: - As above DDD (degenerative disc disease), lumbar Painful paresthesias in lower extremities with longer periods of sitting. Also occurring when up and about. PT was previously beneficial. Lumbar MRI with degenerative disc disease and facet arthropathy which could be causing a lot of her isolated back pain. The patient denies any weakness, falls or red flag symptoms. PLAN: - Continue following with pain management ([facility]) Follow up in 3-4 months or sooner if symptoms worsen, fail to improve, or should a new neurological concern arise. Pt has been fully educated on their diagnosis, treatment options, follow up plan, and return instructions documented in this encounter [facility] 12-27-2023 Hospital Discharge instructions Follow Up Care 12/27/2023 13:04:11 With:ANTONELLA KOENIG, MASTER Martinez Address: [address] [place], [place] [id number]- When: only if needed [facility] General Surgery [facility] 11-11-2023 Note Chief Complaint consultation for skin [...] Brother. Colon ca (more content not included)... [facility] Comment on above: Result Comment: [...] concerns. Patient agrees with plan of care. [facility]07-28-2022 NoteHNO ID: [id number] Author: ST Rick Service: ? Author Type: Ground Instructor Advanced Type: Progress Notes Filed: 04/12/2022 3:50 PM Note Text: DATE OF PHOTOS: 04/12/2022 Body Part: Breasts, Abdomen, Leg(s) and Arms ST Rick April 12, 2022 3:49 [facility]07-28-2022 History of Present illness Narrative* ST Rick - 04/12/2022 3:49 PM EDT DATE OF PHOTOS: 04/12/2022 Body Part: Breasts, Abdomen, Leg(s) and Arms ST Rick April 12, 2022 3:49 PM [facility] NoteHNO ID: [id number] Author: Lazara Woods MD Service: ? Author [...] this visit. ALLERGIES A (more content not included)...[facility]07-27-2022 History of Present illness Narrative* Lazara Woods [...] weeks. Lazara Woods MD [facility] Evaluation + Plan note Diagnostic [...] Level 04/25/21 * Vitamin B12 Level 04/25/21 [facility]02-25-2022 NoteHNO ID: [id number] Author: Ena Mcginnis MD Service: ? Author [...] mcg, Iron 45-60 mg and calcium citrate 0285-0519 mg/day PHYSICAL EXAMINATION: Weight loss: BMI 23.2 [...] ? Doing great ? EGD Ena Mcginnis [facility]09-30-2021 NoteHNO ID: [id number] Author: Ena Mcginnis MD Service: ? Author [...] mcg, Iron 45-60 mg and calcium citrate 8836-2607 mg/day ? COMPLETE REVIEW OF SYSTEMS Constitutional--Negative [...] which included preparing to see the patient, [id number] patient care and completing clinical documentation.[facility]08-10-2021 Evaluation + Plan note Future Scheduled Tests Laboratory* Copper Level 04/25/21 * Zinc Level 04/25/21 * Vitamin A Level 04/25/21 * Vitamin B1 04/25/21 * Vitamin B6 Lvl 04/25/21 * Vitamin D 25 Hydroxy 04/25/21 * Ferritin 04/25/21 * Folate Level 04/25/21 * Iron Level 04/25/21 * Magnesium Level 04/25/21 * Vitamin B12 Level 04/25/21 [facility] [id number] History of Past illness Narrative* Problem Noted Date Resolved Date Morbid obesity 05/04/2020 01/23/2021 documented as of this encounter (statuses as of 04/12/2022) [facility]08[facility] History of Past illness Narrative* Problem Noted Date Resolved Date Morbid obesity 05/04/2020 01/23/2021 documented as of this encounter (statuses as of 04/12/2022) [facility] [place] [facility] Plan note Future Appointments Appointment Date:09/24/2022 10:30:00 AM Scheduled Provider:Sridevi Goetz PA-C Location:.[facility] Appointment Type:Pain Management - Follow Up (FT) [facility] Hx of bariatric surgery- Primary Bariatric surgery status Excess skin documented in this encounter [facility] [place] noteNo assessment information availableHolzer [facility] Work Phone: Evaluation note* Diagnosis Migraine without status migrainosus, not intractable, unspecified migraine type (CMS/HCC)- Primary Chronic tension-type headache, not intractable Chronic tension type headache Cervicogenic headache Headache Occipital neuralgia of right side Myalgia Unspecified myalgia and myositis Cervical spondylosis Cervical spondylosis without myelopathy Fibromyalgia Unspecified myalgia and myositis DDD (degenerative disc disease), lumbar Degeneration of lumbar or lumbosacral intervertebral disc documented in this encounter [facility] HealthcareEvaluation note* Diagnosis Migraine without status migrainosus, not intractable, unspecified migraine type (CMS/HCC)- Primary Myalgia Unspecified myalgia and myositis Cervical spondylosis Cervical spondylosis without myelopathy Fibromyalgia Unspecified myalgia and myositis Degeneration of intervertebral disc of lumbar region, unspecified whether pain present documented in this encounter [facility] Narrative No data available for this section [facility] Hospital Discharge instructions No data available for this section [facility] Progress note No data available for this section [facility] Summary Purpose Family History No [...] FoundDocuments on File Type Date Recorded Patient Case Liner Expl anation Advance Directive(s) 12/16/2020 8:43 AM Advance Directive(s) 12/15/2020 1:00 PM Advance Directive(s) 10/24/2020 10:04 AM Advance Directive(s) 10/04/2020 4:19 PM Advance Directive Response Recorded Date/ Time Advance Directives No April 30, 2018 4:07pm Hospital Course Note HNO ID: [id number] Author: Douglas Torrez Service: General Surgery Author [...] (more content not included)... 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 Note HNO ID: [id number] Author: Devonte Zurita Service: Anesthesiology Author Type: Nurse Power Generation Plant Operator Type: Anesthesia Procedure Notes Filed: 10/24/2020 [...] October 24, 2020 TIME: 2:26 PM CSN: [id number] Note HNO ID: [id number] Author: Douglas Torrez Service: General Surgery Author Type: Physician Type: Brief Op Note Filed: 10/24/2020 4:36 PM Note Text: BRIEF OPERATIVE NOTE [facility] LOG ID: [id number] SURGERY/PROCEDURE DATE: 10/24/2020 INCISION/PROCEDURE START TIME: 2:28 PM INCISION CLOSE/PROCEDURE END TIME: 4:31 PM SURGEON(S) AND SENIOR ANALYSIS SPECIALIST(S): Surgeon(s) and Role: * Ena Mcginnis - Primary * Jarad Clarke (Res) DO Steven - Resident - Assisting * Presley Torrez - Resident - Assisting No Additional Staff PROCEDURES AND ANESTHESIA: Procedure(s) and Anesthesia Type: * LAPAROSCOPIC GASTRIC RESTRICTIVE SURG W/ BYPASS AND TREVOR-EN-Y Procedure Findings Note HNO ID: [id number] Author: Devonte Zurita Service: Anesthesiology Author Type: Nurse Power Generation Plant Operator Type: Anesthesia Procedure Notes Filed: 10/24/2020 2:25 PM Note Text: ANESTHESIOLOGY PROCEDURE NOTE Airway General Information Procedure Start Time/Medication Administration: 10/24/2020 2:14 PM Patient location during procedure: OR Timeout Performed Pre-procedure: timeout performed Patient identity confirmed: 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 Note HNO ID: [id number] Author: Devonte Zurita Service: Anesthesiology Author Type: Nurse Power Generation Plant Operator Type: Anesthesia Procedure Notes Filed: 10/24/2020 [...] October 24, 2020 TIME: 2:26 PM CSN: [id number] Note HNO ID: [id number] Author: Douglas Torrez Service: General Surgery Author Type: Physician Type: Brief Op Note Filed: 10/24/2020 4:36 PM Note Text: BRIEF OPERATIVE NOTE [facility] LOG ID: [id number] SURGERY/PROCEDURE DATE: 10/24/2020 INCISION/PROCEDURE START TIME: 2:28 PM INCISION CLOSE/PROCEDURE END TIME: 4:31 PM SURGEON(S) AND SENIOR ANALYSIS SPECIALIST(S): Surgeon(s) and Role: * Ena Mcginnis - [...] DATE CREATED AUTHOR AUTHOR'S ORGANIZ ATION 10/18/2020 [facility] DATE CREATED AUTHOR AUTHOR'S ORGANIZ ATION 12/17/2020 [facility] DATE CREATED AUTHOR AUTHOR'S ORGANIZ ATION 04/16/2022 [facility] DATE CREATED AUTHOR AUTHOR'S ORGANIZ ATION 05/10/2022 [facility] DATE CREATED AUTHOR AUTHOR'S ORGANIZ ATION 12/26/2023 [facility] DATE CREATED AUTHOR AUTHOR'S ORGANIZ ATION 01/09/2024 [facility] DATE CREATED AUTHOR AUTHOR'S ORGANIZ ATION 07/15/2024 [facility] DATE CREATED AUTHOR AUTHOR'S ORGANIZ ATION 09/27/2024 [facility] dical Specialists EPIC Care Team (unrecognized sect ion and content) Skip Hoist Engineer Relationship Specialty Start Date End Date Jose Castano III, DO [address] [place] [address] PCP - General Family Practice 10/04/20 Skip Hoist Engineer Relationship Specialty Start Date End Date Jose Castano III DO [address] [place] [address] PCP - General Family Practice 10/04/20 Team Status: Inactive Member Role Status Dates Zack Berman MD FACS Attending Provider Active Start: December 25, 2023 End: December 25, 2023 Skip Hoist Engineer Relationship Specialty Start Date End Date Candis Colindres MD [address] [place] [phone] PCP - General Family Medicine 01/30/24 Skip Hoist Engineer Relationship Specialty Start Date End Date Candis Colindres MD [address] [place] [phone] PCP - General Family Medicine 01/30/24 Skip Hoist Engineer Relationship Specialty Start Date End Date Candis Colindres MD [address] [place] [phone] PCP - General Family Medicine 01/30/24 Skip Hoist Engineer Relationship Specialty Start Date End Date Candis Colindres MD [address] [place] [phone] PCP - General Family Medicine 01/30/24 Source Comments (unrecognize d section and content) In the event this informatio n is protected by the Federal Confidentiality of Alcohol and Drug Abuse Patient Records regulations: The Federal rules restrict any use of the information to criminally investigate or prosecute any alcohol or drug abuse patient.[facility] HospitalIn the event this information is protected by the Federal Confidentiality of Alcohol and Drug Abuse Patient Records regulations: The Federal rules restrict any use of the information to criminally investigate or prosecute any alcohol or drug abuse patient.[facility] Reason for Visit (unrecogniz ed section and content) Reason Comments PHOTOS TAKEN Reason Comments Consult Reason Comments Migraine Neck Pain Back Pain Reason Comments Migraine Back Pain Neck Pain Occipital Neuralgia- R Goals (unrecognized section and content) Goals may [...] BE BASED ON THE PRIMARY CLINICAL RECORDS. [employer] [facility]. provides no warranty or guarantee of the accuracy or completeness of information in this document.
[2024-09-28 07:00] VITALS: BP 130/93; PULSE 85; TEMP 36.3; O2SAT 100
[2024-09-28 07:41] VITALS: BP 134/88; BP 136/90; PULSE 75; PULSE 77; O2SAT 99
[2024-09-28] MEDS: 0.9 % SODIUM CHLORIDE 10 ML SYRINGE - SALINE FLUSH INJ (07:45)
[2024-09-28] MEDS: LIDOCAINE HCL 2% 400 MG/20 ML MDV 3 ML INJ (07:46)
[2024-09-28] MEDS: IOHEXOL 240 MG/ML - 10 ML VIAL 24 MG INJ (07:46)
[2024-09-28] MEDS: METHYLPREDNISOLONE ACETATE 80 MG/ML VIAL INJ (07:46)
[2024-09-28] MEDS: BUPIVACAINE HCL 0.25% PF 25 MG/10 ML VIAL INJ (07:46)
--- NOTE | 2024-09-28 07:48 | W.PM.PROCNOT ---
Date of procedure: 09/28/24 Pre-op diagnosis: Pain due to lumbar stenosis with neurogenic claudication Post-op diagnosis: same as pre-op Procedure: Procedure: Bilateral L5-S1 transforaminal epidural steroid injection Medications: Bupivacaine 0.25% 2cc, lidocaine 2% 1cc, depomedrol 80mg The patient was seen and examined in the preoperative holding area.? Informed consent was obtained and placed on the chart.? Patient was brought to the medical procedure unit and placed in the prone position where a timeout was completed verifying the correct patient, procedure site, position, and planned special equipment using sterile aseptic technique.? Under direct fluoroscopic visualization a 25-gauge Quincke tipped spinal needle was advanced at level left L5-S1 to the designated neural foramen where contrast dye was injected to show adequate spread.? There was no evidence of vascular or adverse uptake.? Epidural spread was appreciated.? The above-mentioned injectate was then placed in a 1.5 mL aliquot preceded by negative aspiration.? The needle was removed. The same procedure, at the same level, was completed on the opposite side. ? Patient was taken to the postprocedural recovery area and monitored for an appropriate length of time before found suitable for discharge in the accompaniment of a responsible adult. Anesthesia: Local Surgeon: Aaliyah Hampton Pathology: none sent Condition: stable Disposition: no change
== END 2024-09-28 07:54 | disposition home or self-care (01) ==
LOC: SURGOUT 06:52
PROVIDERS: PCP Physician Assistant; Visit Provider Anesthesiology
DX: M48.062 Spinal stenosis, lumbar region with neurogenic claudication (principal)
CPT/HCPCS: 64483; J0665; J1010; Q9966

== ENCOUNTER 2024-10-08 07:45 | Outpatient (OUT) | payer OTHER, SELFPAY ==
--- OUTSIDE RECORDS SUMMARY | 2024-10-08 07:52 | XMS_ITS | CCD ---
Author Organization [facility] Care Team Providers Care Nursery Worker Name Role Phone Jose Castano III Primary [...] BERMAN Attending Unavailable Zack BERMAN Attending Unavailable Candis Colindres MD Primary Care Provider AUDREY VELA Attending Unavailable JOSE CASTANO Referring Unavailable GODWIN KEYES Attending Unavailable GODWIN KEYES Attending Unavailable GODWIN KEYES Attending Unavailable Giedraitis , Andwendy Arellano Attending Unavailable Giedraitis , Andrius Eileen Attending Unavailable Giedraitis , Andrius Eileen Attending Unavailable Giedraitis , Andrius Eileen Attending Unavailable Giedraitis , Andrius Eileen Attending Unavailable Giedraitis , Andrius Eileen Attending Unavailable Giedraitis MD, Andrius Vmil Attending Unavailable Giedraitis MD, Andrius Vytautandrzej Attending Unavailable Allergies Allergy Classification Reported Allergen(s) Allergy Type Date of Onset Reaction(s) Facility (18 sources) Latex; Translations: [latex] Drug allergy 4 Cutaneous eruption (morphologic abnormality), Other: See Comments, Rash [facility] (20 sources) SUMAtriptan; Translations: [sumatriptan] Drug Allergy 7 Other: See Comments, GI intolerance [facility] (1 source) Amitriptyline Drug Allergy [facility] (1 source) NSAIDs Drug allergy (disorder) [facility] (1 source) Plasmin Drug Allergy [facility] (3 sources) Adhesive bandage; Translations: [Adhesive Bandage] Propensity to adverse reactions to substance [facility] [place] (1 source) SUMAtriptan Drug Allergy 8 [facility] (6 sources) Wound Dressing Adhesive Propensity to adverse reactions 4 [facility] Healthcare Medications Current Medications Medication Drug Class(es) Dates Sig (Normalized) Sig (Original) [id number] 200 actuat albuterol 0.09 mg/actuat metered dose [...] (Ineffective) Start: 10-28-2023 take 1 tablet by antwan three times daily as needed for pain [...] Daily, # 50 tab(s), Refills(s) 1, Pharmacy: [facility] 1155, 155, cm, 01/25/21 14:00:00 EDT, [...] Pain, # 45 cap(s), Refills(s) 4, Pharmacy: [facility] 1155, 155, cm, 03/01/22 15:01:00 EDT, [...] Active Start: 11-23-2023 take 1 capsule by [facility] once daily DULoxetine (Cymbalta) [address] [...] month 1.68 mL 11 04/06/2024 Active levonorgestrel 0.684258 mg/hr intrauterine system (8 sources) Progestin, Progestin-containin [...] (2 sources) Sympathomimetic Amine Anorectic Start: 07-08-20 take 1 tablet by mouth once daily [...] on above: Take 1 capsule by [facility] three times daily for 14 days. Lactobacillus [...] Comment on above: Take 1,000 mcg by [facility] once daily. Problems Active Problems [...] 02-06-2024 Chronic Other aftercare (1 source) Other longterm (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 therapy; Translations: [OTH LONGTERM CURRENT DRUG THERAPY] Onset: 2 Episodic Other [...] Martinez When: Only if needed Where: [address] [place] [address]- Medications What How Much When Instructions Unchanged [...] for choosing us for your care. Normal [facility] General Surgery Office/Clini c Noteon 01-07-2024 [...] KOENIG, MASTER Martinez Only if needed [address] [place] [address]- Additional Instructions: Problem List/Past Medical [...] (COVID-19) mRNA-1273 vaccine 09/28/2020 Recorded 2023-10-28: TPV20 [facility] Comment on above: Result Comment: Elec tronically Signed By: ANTONELLA KOENIG, Zack Gardiner\jenna\Date and Time Signed: 01/07/24 16:13 EDT Operative Reporton Operative Report [id number]#1.00TIFF [facility] Pathology Noteon 12-27-2023 Pathology Note [id number]#1.00TIFF [facility] Varun 12-25-2023 L Specimen: [id number] eceived: 12/25/23 Status: LAITH June Num: [id number] Spec Type: Surgical Subm Dr: Zack Berman MD FACS Tissues: A Lipoma (LT BACK) Procedures: HE, Gross/Micro L3 Age/ Patient Sex Location Account Attending Physician Nica Estrada Douglas 38/F [facility] [id number] Zakc Berman MD FACS SPEC NUM: [id number] RECD: 12/25/23 STATUS: LAITH JUNE NUM: [id number] JAVI: 12/25/[address]: Zack Berman MD FACS ENTERED: 12/25/23 [facility] DR: Yuriy Magana SPEC TYPE: Surgical [...] no obvious areas of hemorrhage or necrosis. Presentation Team Member sections are submitted A1. RG Clinical history: Lipoma, path pending CPT Codes 60851 -------- -------- Specimen: [id number] Received: 12/25/23 Status: LAITH June Num: [id number] Spec Type: Surgical Subm Dr: Zack Berman MD FACS Tissues: A Lipoma (LT BACK) Procedures: HE, Gross/Micro L3 -------- Patient: Nica Estrada [id number] (Continued) -------- Signed (signature on file) Darren Dias MD 12/26/23 1322 Normal [facility] Consent for Procedure/Surger yon 11-12-2023 Consent for Procedure/Surgery [id number]#1.00TIFF Normal [facility] Consent for Procedure/Surgery [id number]#1.00TIFF Normal [facility] Ambulatory Visit Summaryon 0 11-11-2023 [...] for choosing us for your care. Normal [facility] Physician Referralon 024 Physician Referral [id number]#1.00TIFF Normal [facility] PREG HCG QUALon 04-20-2022 , QUAL Negative Normal NEGATIVE [facility] Comment on above: Performed By: #### P REG #### [facility] [address] [place] [address] Dr. Refugio Apple CNOVon 04-12-2022 CNOV Office Visit (PLASMN ) NICA ESTRADA ([id number]) 1985 F Date Time Provider Department 04/12/22 [...] times d (more content not included)... Normal [facility] PREG HCG QUALon 04-06-2022 , QUAL Negative Normal NEGATIVE [facility] Comment on above: Performed By: #### P REG #### [facility] [address] [place] [address] Dr. Refugio Apple CHEMISTRYOrdered By: SYSTEM SYSTEM [...] CNOV Office Visit (GENSSM ) NICA ESTRADA ([id number]) 1985 F Date Time Provider Department 11/10/21 [...] mcg, Iron 45-60 mg and calcium citrate 6909-6729 mg/day PHYSICAL EXAMINATION: Weight loss: BMI 23.2 [...] Ena Mcginnis MD Referring Provider: ENA MCGINNIS [[id number]] Allergies As of Date: 11/10/2021 Noted Allergy [...] JUANITA (a (more content not included)... Normal [facility] CONon 11-10-19 MRI [facility] WO CON EXAMINATION: MRI [facility] WO CON HISTORY: Cervical spondylosis without myelopathy [...] ALONZO Date: 2021-11-10 14:28 [facility]21 [facility] Office Visit (AUH682 ) NICA ESTRADA ([id number]) 1985 F Date Time Provider Department 06/15/21 11:30 AM ENA MCGINNIS CAL541 During your visit today, we recorded the [...] call directly to schedule upper endoscopy at [phone]. Please leave a message if you receive the voicemail with your name, birthday, and reason for calling. Please expect a call or [employer]hart message with appointment information and instructions. What [...] is especially important if you have had vkwwt-izsyyilzj-lwpla surgery in the past. How is an [...] minutes for (more content not included)... Normal [facility] HISTORY PHYSICALon HISTORY PHYSICAL HNO ID: [id number] Author: Kalpana Otero MD Service: General Surgery [...] DATE: December 16, 2020 TIME: 9:33 AM [facility] NURSING PROGon 12-16-2020 NURSING PROG HNO ID: [id number] Author: Yashira LauRn) DEEPTHI Nova Service: Nursing [...] None Electronically Signed By: Yashira Nova RN [facility] PT EDon 12-16-2020 PT ED HNO ID: [id number] Author: Manohar LauRn) DEEPTHI Conn Service: Nursing [...] None Electronically Signed By: Manohar Conn RN [facility] NURSING PROGon 10-25-2020 NURSING PROG HNO ID: [id number] Author: Diego Abad RN Service: ? Author Type: Registered Nurse Type: Nursing Progress Note Filed: 10/25/2020 2:09 AM Note Text: Nursing Progress Note Patient Name: Nica Estrada Patient Location: [facility]3C25/-CJ7X-56 Daily Note: 1999: Assessment complete see NPR. Pt present w/ nausea Zofran given. Pain 8/ PRN pain med given. 010: Nausea concerned by pt. Paged for second like prevention. 0130: Compazine ordered/given. No cough or SOB at this time. Lap sites intact no bruising. No gas passed yet. This note was completed by: Diego Abad [facility] PLAN OF CAREon 10-25-2020 PLAN OF CARE HNO ID: [id number] Author: Davina Bonilla (SocialGuide) Service: Pharmacy Author Type: ? Type: Plan of Care Filed: 10/25/2020 2:56 PM Note Text: Pharmacy Discharge Medication Service: This patient has elected to receive their discharge prescriptions through the [facility] Bedside Prescription Delivery program. The prescriptions are currently being processed. A follow-up note will be entered once the prescriptions have been filled and delivered to the patient. Please contact me with any questions or updates to the patient's discharge medications. Davina Bonilla ([employer]) DCT Contact Info: [id number] [facility] PLAN OF CARE HNO ID: [id number] Author: Davina Bonilla ([employer]Guide) Service: Pharmacy Author Type: ? 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 Patient to use [facility] Bedside Delivery - YES Insurance Information as follows: 2. Insurance card on file - YES 3. Credit card for payment - N/A [facility] PLAN OF CARE HNO ID: [id number] Author: Davina Bonilla (SocialGuide) Service: Pharmacy Author Type: ? Type: Plan [...] or your Primary Care Provider. Davina Bonilla (Rehab Liaison) PAGER: [phone] October 25, 2020 2:56 PM [facility] PROGRESSon 10-25-2020 PROGRESS HNO ID: [id number] Author: Presley Torrez Service: General Surgery Author [...] DATE: October 25, 2020 TIME: 7:02 AM [facility] PROGRESS HNO ID: [id number] Author: Juliet Lilly Service: General Surgery Author [...] care Juliet Lilly MD General Surgery PGY1 [facility] PT EDon 10-25-2020 PT ED HNO ID: [id number] Author: Geoff Hector Service: Nutrition Therapy Author Type: Pen Ruler Operator Type: Patient Education Filed: 10/25/2020 12:04 [...] October 25, 2020 TIME: 12:04 PM PAGER: [phone] [facility] ANES POSTPROC EVALon 021 ANES POSTPROC EVAL HNO ID: [id number] Author: Brandon Stoddard Service: Anesthesiology Author Type: [...] October 24, 2020 TIME: 4:58 PM CSN: [id number] [facility] ANES PRE-OPon 10-24-2020 ANES PRE-OP HNO ID: [id number] Author: Colin Archer Service: Anesthesiology Author Type: [...] October 24, 2020 TIME: 1:18 PM CSN: [id number] [facility] NURSING PROGon 10-24-2020 NURSING PROG HNO ID: [id number] Author: Sridevi LauRn) DEEPTHI Triana Service: Nursing Author Type: Registered Nurse Type: Nursing Progress Note Filed: 10/24/2020 6:56 PM Note Text: Nursing Progress Note Patient Name: Nica Esrtada [address] Location: [address]-86 Transfer Note: Patient transferred into room/unit PK325 in stable condition. Actions taken: No futher actions taken at this time. at bedside. Will continue to monitor and check with patient. This note was completed by: Sridevi Triana RN [facility] NURSING PROG HNO ID: [id number] Author: Gege (Rn) DEEPTHI Kenney Service: Nursing Author Type: Registered Nurse Type: Nursing Progress Note Filed: 10/24/2020 1:38 PM Note Text: PATIENT EDUCATION TOPIC: PROCEDURE / SURGERY: Pre-op Teaching: Protocols PATIENT NAME: Nica Estrada PATIENT LOCATION: OR POOL/FV OR POOL READINESS TO LEARN [...] None Electronically Signed By: Gege Kenney RN [facility] OPERATIVE NOon 10-24-2020 OPERATIVE NO HNO ID: [id number] Author: Ena Mcginnis Service: General Surgery Author Type: Physician Type: Operative Report Filed: 10/26/2020 11:07 AM Note Text: [facility] - Operative Report NICA ESTRADA : 1985 AGE: 35. SEX: F PATIENT TYPE: I HOSP SVC: GENS LOCATION: [facility] ATTENDING PHYSICIAN: Ena Mcginnis MD [facility] NUMBER: [id number] DATE OF SURGERY/PROCEDURE: 10/24/2020 INCISION/PROCEDURE START TIME: 2:28 PM INCISION CLOSE/PROCEDURE END TIME: 4:31 PM PREOPERATIVE DIAGNOSIS: Morbid obesity, BMI of 42. POSTOPERATIVE DIAGNOSIS: 1. Morbid obesity. 2. Hiatal hernia. SURGEON: Ena Mcginnis MD MAIL ROOM: Presley Torrez MD. SURGERY/PROCEDURE: 1. Laparoscopic repair [...] performed in the retroesophageal window and a Marmaduke drain was passed. It was used to retract the esophagus. The posterior cruroplasty was completed using 1 ucyzza-qh-uamhv stitch using silk to tighten the sharri. [...] in the absence of qualified neurosurgical nurse help. He created the pouch and created the jejunojejunostomy. Ena Mcginnis MD TA:[id number] /[id number] Normal [facility] Confirm Blood Typeon 021 ABO/RH(D) Positive Normal [facility] Comment on above: Performed By: #### C ONABO ####[facility] [place], [place] [phone] HISTORY PHYSICALon HISTORY PHYSICAL HNO ID: [id number] Author: Amanda hSane (Pa) Service: ? Author Type: Physician Credit Risk Officer Type: HANDP Filed: 10/17/2020 2:58 PM Note [...] Prior to Admission medications as of 10/17/20 5609 Medication Sig Last Dose Taking gabapentin (NEURONTIN) [...] fevers. Neuro: No history of TIA's, stroke, MACHINE SANDER tumor, impaired sensorium, hemiplegia, paraplegia or quadraplegia. No neurological symptoms or problems. Respiratory: asthma, uses rescue about once every few weeks; no current resp sx. Had acute bronchitis last Fall, flared asthma for a while but is better now. Has environmental allergies Cardiovascular: No history of HTN requiring medication, no history of angina, CHF, [place], cardiac surgery or stents. Denies rest pain, gangrene or revascularization/amputation for PVD. No history of cardiovascular symptoms or problems. GI: Positive for GERD, no other GI sx. : No history of dysuria, frequency or incontinence,, stones or chronic kidney disease CABINET FINISHER: Negative for abnormal vaginal bleeding, abnormal vaginal [...] 2020 TIME: 2:42 PM PAGER/CONTACT #: Normal [facility] Type and SCR (30D)on 021 ABO/RH(D) Positive Normal [facility] Comment on above: Performed By: #### T SCR30 ####[facility] [place], [place] [phone] HOSPon 09-27-2020 HOSP Patient:Nica Estrada MRN: Height:5' [...] 44.1 % 10/17/2020 46.0 36.0 Progress Notes ([facility]): Marcella Saldana RN 10/13/2020 2:32 PM [...] Strength Tylenol. Marcella Saldana RN Progress Notes ([address]): Ena Mcginnis MD 10/13/2020 5:31 PM Signed SURGERY PREOPERATIVE VISIT NOTE Name: Nica Estrada Medical Record: [id number] Encounter No.: [id number] Nica Estrada is a 35 year old [...] regarding unsatisfactory weight loss as well as longterm weight regain. I have also discussed medical [...] on recommendations of the Governor of the [facility]. Although we will perform appropriate precautions [...] patient. Ena Mcginnis MD Previous Version Normal [facility] HEPATITIS B SURFACE AB IMMUN ITY, QNon 08-11-2020 HEPATITIS B SURFACE AB IMMUNITY, QN >1000 Normal > OR = 10 [facility] Comment on above: Result Comment: Patient has immunity to hepatitis B virus. For additional information, please refer to http://education.MapMyFitness.ReferStar/faq/VRS067 (This link is being provided for informational/ educational purposes only). Performed By: #### 8 [id number] #### [facility]-[address], [address] [place] [id number] Table Cover Folder: Sixto Chandler MD Vital Signs Date Time Vital Sign Value Performing Clinician Facility 09-21-2024 10:03-0500 Body mass index (BMI) [Ratio] 30.8 kg/m2 Godwin Keyes NP Work Phone: [facility] 09-21-2024 10:03-0500 Body weight 73.94 kg 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 Work Phone: [facility] 09-21-2024 10:03-0500 Diastolic blood pressure 93 mm[Hg] 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 Work Phone: [facility] 09-21-2024 10:03-0500 Heart rate 86 /min 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 Work Phone: [facility] 09-21-2024 10:03-0500 Systolic blood pressure 142 mm[Hg] Godwin Keyes NP Work Phone: [facility] 06-01-2024 09:53-0400 Body height 154.9 cm 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 Work Phone: [facility] 06-01-2024 09:53-0400 Body mass index (BMI) [Ratio] 29.48 kg/m2 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 Work Phone: [facility] 06-01-2024 09:53-0400 Body weight 70.76 kg 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 Work Phone: [facility] 06-01-2024 09:53-0400 Diastolic blood pressure 108 mm[Hg] 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 Work Phone: [facility] 06-01-2024 09:53-0400 Heart rate 80 /min 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 Work Phone: [facility] 06-01-2024 09:53-0400 Systolic blood pressure 146 mm[Hg] 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 Work Phone: [facility] 10-16-2022 12:53-0500 Diastolic blood pressure 80 mm[Hg] Otis Marcin [facility] 10-16-2022 12:53-0500 Heart rate 55 /min Otis Marcin [facility] 10-16-2022 12:53-0500 Mean blood pressure 89 mm[Hg] Otis Marcin [facility] 10-16-2022 12:53-0500 Respiratory rate 18 /min Otis Marcin [facility] 10-16-2022 12:53-0500 Systolic blood pressure 108 mm[Hg] Otis Marcin [facility] 08-28-2022 08:52-0500 Heart rate 70 /min Otis Marcin [facility] 08-28-2022 08:52-0500 SaO2% (BldA) [Mass fraction] 100 % Otis Marcin [facility] 08-28-2022 08:52-0500 Respiratory rate 16 /min Otis Marcin [facility] 08-28-2022 08:52-0500 Diastolic blood pressure 80 mm[Hg] Otis Marcin [facility] 08-28-2022 08:52-0500 Mean blood pressure 93 mm[Hg] Otis Marcin [facility] 08-28-2022 08:52-0500 Systolic blood pressure 121 mm[Hg] Otis Marcin [facility] 08-28-2022 08:46-0500 Heart rate 70 /min Otis Marcin [facility] 08-28-2022 08:46-0500 SaO2% (BldA) [Mass fraction] 100 % Otis Marcin [facility] 08-28-2022 08:46-0500 Body temperature 97.52 [degF] Otis Marcin [facility] 08-28-2022 08:46-0500 Diastolic blood pressure 69 mm[Hg] Otis Marcin [facility] 08-28-2022 08:46-0500 Mean blood pressure 80 mm[Hg] Otis Marcin [facility] 08-28-2022 08:46-0500 Systolic blood pressure 104 mm[Hg] Otis Marcin [facility] 08-28-2022 08:46-0500 Respiratory rate 16 /min Otis Marcin [facility] 08-28-2022 08:41-0500 Diastolic blood pressure 64 mm[Hg] Otis Marcin [facility] 08-28-2022 08:41-0500 Systolic blood pressure 102 mm[Hg] Otis Marcin [facility] 08-28-2022 08:40-0500 Heart rate 71 /min Otis Marcin [facility] 08-28-2022 08:40-0500 Respiratory rate 12 /min Otis Marcin [facility] 08-28-2022 08:40-0500 SaO2% (BldA) [Mass fraction] 100 % Otis Marcin [facility] 08-28-2022 08:35-0500 Respiratory rate 12 /min Otis Marcin [facility] 08-28-2022 08:30-0500 Respiratory rate 12 /min Otis Marcin [facility] 08-28-2022 07:17-0500 Mean blood pressure 78 mm[Hg] Otis Marcin [facility] 08-28-2022 07:17-0500 Respiratory rate 16 /min Otis Marcin [facility] 08-28-2022 07:17-0500 Body temperature 98.24 [degF] Otis Marcin [facility] 04-12-2022 14:47-0400 Body height 152.4 cm Lazara Woods MD Work Phone: [facility] 04-12-2022 14:47-0400 Body temperature 98.91 [degF] Lazara Woods MD Work Phone: [facility] 04-12-2022 14:47-0400 Body weight 55.52 kg Lazara Woods MD Work Phone: [facility] 04-12-2022 14:47-0400 Diastolic blood pressure 92 mm[Hg] Lazara Woods MD Work Phone: [facility] 04-12-2022 14:47-0400 Heart rate 65 /min Lazara Woods MD Work Phone: [facility] 04-12-2022 14:47-0400 Systolic blood pressure 140 mm[Hg] Lazara Woods MD Work Phone: [facility] 03-01-2022 14:59-0400 Diastolic blood pressure 86 mm[Hg] Mixon SALAM [facility] 03-01-2022 14:59-0400 Heart rate 52 /min Mixon SALAM [facility] 03-01-2022 14:59-0400 Systolic blood pressure 130 mm[Hg] Mixon SALAM [facility] Encounters Encounter Date Encounter Type Care Provider Facility Start: 09-28-2024 End: 09-28-2024 ambulatory Aaliyah Hampton MD Facility: [facility] Start: 09-21-2024 End: 09-21-2024 Jared Keyes BORING MACHINE OPERATOR HELPER Work Phone: [facility] Start: 09-21-2024 End: 09-21-2024 Jared Keyes BORING MACHINE OPERATOR HELPER Work Phone: [facility] Start: 09-21-2024 End: 09-21-2024 Office outpatient visit 15 minutes 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 Work Phone: [facility] Comment on above: Migraine without sta tus migrainosus, not intractable, unspecified migraine type (CMS/HCC) (Primary Dx); Myalgia; Cervical spondylosis; Fibromyalgia; Degeneration of intervertebral disc of lumbar region, unspecified whether pain present Start: 09-21-2024 End: 09-21-2024 ambulatory GODWIN KEYES Not Available Start: 06-29-2024 End: 06-29-2024 ambulatory Aaliyah Hampton MD Facility: [facility] Start: 06-01-2024 End: 06-01-2024 Bamboo leanneheet 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 Work Phone: [facility] Start: 06-01-2024 End: 06-01-2024 Bamboo flowsheet 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 Work Phone: [facility] Start: 06-01-2024 End: 06-01-2024 ambulatory GODWIN KEYES Not Available Start: 06-01-2024 End: 06-01-2024 Office outpatient visit 15 minutes 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 Work Phone: [facility] Comment on above: Migraine without sta tus migrainosus, not intractable, unspecified migraine type (CMS/HCC) (Primary Dx); Chronic tension-type headache, not intractable; Cervicogenic headache; Occipital neuralgia of right side; Myalgia; Cervical spondylosis; Fibromyalgia; DDD (degenerative disc disease), lumbar Start: 04-06-2024 End: 04-06-2024 ambulatory GODWIN KEYES Not Available Start: 02-17-2024 End: 02-17-2024 ambulatory AUDREY Bailey MIRIAN Not Available Start: 01-20-2024 End: 01-20-2024 ambulatory Aaliyah Hampton MD Facility: [facility] Start: 01-07-2024 End: 01-08-2024 ambulatory Zack BERMAN Facility: [facility] Start: 01-07-2024 End: 01-07-2024 Patient encounter procedure Zack BERMAN [facility] Start: 01-06-2024 End: 01-06-2024 ambulatory Aaliyah Hampton MD Facility: [facility] Start: 01-03-2024 ambulatory Zack BERMAN Facility:[facility] Start: 12-25-2023 End: 12-25-2023 ambulatory Zack Berman Facility:[facility] Start: 12-25-2023 End: 12-26-[address] [facility] Work Phone: Start: 12-25-2023 End: 12-25-2023 Departed Harsha Berman Work Phone: [facility] Start: 12-16-2023 End: 12-16-2023 ambulatory Aaliyah Hampton MD Facility:[facility] Start: 12-09-2023 End: 12-09-2023 ambulatory Aaliyah Hampton MD Facility:[facility] Start: 12-02-2023 End: 12-02-2023 ambulatory Aaliyah Hampton MD Facility:[facility] Start: 11-11-2023 End: 11-12-2023 ambulatory Zack BERMAN Facility:[facility] Start: 11-11-2023 End: 11-26-2023 Pre-admission assessment Zack BERMAN [facility] Start: 11-04-2023 End: 11-04-2023 ambulatory Aaliyah Hampton MD Facility: [facility] Start: 10-21-2023 ambulatory Zack BERMAN Facility:[facility] Start: 10-16-2022 End: 10-16-2022 Pain Management Otis Burch [facility] Start: 08-28-2022 End: 08-28-2022 Pain Management Otis Burch [facility] Start: 05-04-2022 End: 05-05-[address] [...] End: 03-01-2022 Patient encounter procedure Oral DIETZ [facility] Start: 11-10-2021 End: 11-11-2021 ambulatory PETEY [...] Comment on above: Performed By: #### [id number] ####Eckerman [id number] [place], [place] [phone] Start: 05-09-2020 Adult depression screening assessment Lazara Woods MD Work Phone: Start: 04-18-2020 Colonoscopy Oral DIETZ Start: 04-18-2020 Esophagogastroduodenoscopy Oral DIETZ section Oral DIETZ section Zack Albarado Cholecystectomy Oral DIETZ Fasciotomy of foot Zack HOFFMAN Trevor-en-Y gastrojejunostomy Zack BERMAN Plan of Treatment Date Care Activity Detail Author Start: 01-04-2025 End: 01-04-2025 Patient encounter procedure 01/04/2025 2:40 PM EDT [facility] [address] [place] [address] Lazara Wagner, SHELIA [address] [place] [address] [facility] [address] Start: 09-21-2024 End: 09-21-2024 Patient encounter procedure [facility] Comment on above: Arrived Start: 05-17-2024 Influenza vaccination Influenza Vacc ine (#1) [facility] Start: 2023 Screening for malign ant neoplasm of breast Mammogram [facility] Start: 05-17-2022 Influenza vaccination INFLUENZA (#1) [facility] Start: 05-09-2021 Adult depression screening assessment DEPRESSION SCREENING [facility] Start: 04-10-2021 COVID-19 VACCINE (3 - Booster for Moderna series) COVID-19 VACCINE (3 - Booster for Moderna series) [facility] Start: 2013 HPV TESTING HPV TESTING [facility] Start: 2013 Screening for malign ant neoplasm of cervix [facility] Start: 02-22-2004 PAP TESTING PAP TESTING [facility] Start: 02-22-2004 Screening for malign ant neoplasm of cervix [facility] Start: 2002 Urine microalbumin profile DTAP,TDAP,TD (1 - Tdap) [facility] Start: 2001 ANNUAL PCP TEAM ZOOLOGY TEACHER 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 VISIT ANNUAL PCP TEAM CHRONIC DISEASE VISIT [facility] Start: 2001 BP CONTROLLED (<130/80) BP CONTROLLE D (<130/80) [facility] Start: 2001 HEPATITIS C SCREENING HEPATITIS C SC RAPHAEL [facility] Start: 2001 HIV SCREENING HIV SCREENING [facility] Start: 2001 SPIROMETRY SPIROMETRY [facility] Start: 1989 PNEUMOCOCCAL (1 - PCV) PNEUMOCOCCAL (1 - PCV) [facility] Immunizations Immunization Date Immunization Notes Care Provider Fa cili 07-14-2024 influenza virus vaccine, unspecified formulation 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 Work Phone: [facility] 11-11-2020 SARS-CoV-2 (COVID-19 ) mRNA-1273 vaccine Zack BERMAN [facility] Comment on above: Result Comment: 2023: TPV20 09-28-2020 COVID-19 vaccine, full dose (MODERNA) Lazara Woods MD Work Phone: [facility] Comment on above: Result Comment: 2023: TPV20 07-01-2020 influenza, injectable, quadrivalent, preservative free Lazara Woods MD Work Phone: [facility] 07-01-2020 influenza virus vaccine, unspecified formulation Godwin Keyes NP Work Phone: [facility] 06-17-2020 influenza virus vaccine, unspecified formulation Lazara Woods MD Work Phone: [facility] NEGATED: Highlighted row has not occurred!11-11-2023 influenza virus vaccine, unspecified formulation Zack BERMAN [facility] Payers Date Payer Category Payer Self-pay [id number] 2022 Medicaid [id number] 2022 Private Health Insurance [id number] 2022 Unknown [id number]. 1.13.693.2. [id number] 2022 Unknown [id number] 2018 Medicaid [facility] MEDICAID [facility] PLAN MEDICAID [id number] 2018-Present [phone] [address] [place] [address] Medicaid [id number]. [id number] 1983 Unknown [id number] .840.1.667655.3.579.2. 593 1983 Unknown [id number] .1.511716.3.579.2. 593 1983 Unknown [id number] .1.793699.3.579.2. 593 1983 Unknown [id number] .1.518155.3.579.2. 593 1983 Unknown [id number] .1.955251.3.579.2. 593 1983 Unknown [id number] .1.937925.3.579.2. 593 1983 Unknown [id number] .1.189767.3.579.2. 593 1983 Unknown [id number] .1.644940.3.579.2. 727 1983 Unknown [id number] 11.01.830.1.924031.3.579.2. 727 1983 Unknown [id number] 11.01.830.1.822467.3.579.2. 727 1983 Unknown [id number] .1.853168.3.579.2. 1259 1983 Unknown [id number] 11.01.830.1.180669.3.579.2. 1259 1983 Unknown [id number] 840.1.160544.3.579.2. 1259 1983 Unknown [id number] 840.1.877291.3.579.2. 1259 1983 Unknown [id number] 2.16.840.1.130439.3.579.2. 196 1983 Unknown [id number] 2.16.840.1.820959.3.579.2. 196 1983 Unknown [id number] 2.16.840.1.661410.3.579.2. 1983 Unknown [id number] 2.16.840.1.088637.3.579.2. 196 1983 Unknown [id number] 2.16.840.1.162561.3.579.2. 196 1983 Unknown [id number] 2.16.840.1.211594.3.579.2. 196 1983 Unknown [id number] 2.16.840.1.815344.3.579.2. 1983 Unknown [id number] 2.16.840.1.620539.3.579.2. 196 1959 Unknown [id number] Unknown [id number] 2.16.840.1.906344.3.579.2. 531 Social History Date Type Detail Facility Start: 03-01-2022 End: 11-11-2023 Tobacco smoking status Never smoked tobacco (finding) [facility] Tobacco smoking status Never [facility] Start: 05-31-2024 End: 09-21-2024 Sex Assigned At Female [facility] Start: 06-27-2017 End: 02-06-2024 Tobacco use and exposure Smokeless tobacco non-user [facility] Start: 04-12-2022 End: 09-21-2024 Alcohol intake Current drinker of alcohol (finding) [facility] Start: 04-12-2022 End: 09-21-2024 Alcohol intake [facility] Start: 01-05-2020 History SDOH Alcohol Frequency 3 [facility] Start: 01-05-2020 History SDOH Alcohol Std Drinks 1 [facility] Start: 10-17-2020 History SDOH Alcohol Comment once a month, 1 drink [facility] Start: 1985 Sex Assigned At Not on file [facility] Start: 04-01-2022 End: 04-11-2022 Exposure to SARS-CoV-2 (event) Not sure [facility] Start: 1985 Sex Assigned At Female F [facility] Start: 02-06-2024 [facility] History of [...] Assessment Result Facility 10-16-2022 Functional Status N/A [facility] 08-28-2022 Functional Status N/A [facility] Clinical Notes 05-04-2020 to 09-21-2024 Godwin Keyes NP - 09/21/2024 10:00 AM Buddy Keyes NP - 06/01/2024 9:40 AM EDT Note Date & Type Note Facility 09-21-2024 History of Present illness Narrative Images from the original note were not included. Chief Complaint Patient presents with Migraine Back Pain Neck Pain Occipital Neuralgia- R Subjective Nica Sean, 39 y.o., female Patient is here for [...] , wrist extensors , wrist flexor , special event assistant strength 5/5. LUE Strength deltoid , biceps , triceps , wrist extensors , wrist flexor , special event assistant strength 5/5. RLE Strength illopsoas, quadriceps, tibialis [...] knee reflex 2+. Rodriguez's Sign negative. Coordination: Grdkew-kr-etbu testing is normal Rapid alternating movements are [...] PLAN: - Continue following with pain management (Carlos) Follow up in 3-4 months or sooner if symptoms worsen, fail to improve, or should a new neurological concern arise. Pt has been fully educated on their diagnosis, treatment options, follow up plan, and return instructions documented in this encounter [facility] 06-01-2024 History of Present illness Narrative Images [...] , wrist extensors , wrist flexor , special event assistant strength 5/5. LUE Strength deltoid , biceps , triceps , wrist extensors , wrist flexor , special event assistant strength 5/5. RLE Strength illopsoas, quadriceps, tibialis [...] knee reflex 2+. Rodriguez's Sign negative. Coordination: Mvkxsd-ou-flxo testing is normal Rapid alternating movements are [...] PLAN: - Continue following with pain management (Carlos) Follow up in 3-4 months or sooner if symptoms worsen, fail to improve, or should a new neurological concern arise. Pt has been fully educated on their diagnosis, treatment options, follow up plan, and return instructions documented in this encounter [facility] 12-27-2023 Hospital Discharge instructions Follow Up Care 12/27/2023 13:04:11 With:ANTONELLA KOENIG, MASTER Martinez Address: [address] [place], [place] [address]- When: only if needed [facility] [place] 11-11-2023 Note Chief Complaint consultation for skin [...] Brother. Colon ca (more content not included)... [facility] Comment on above: Result Comment: Elec tronically Signed By: ANTONELLA KOENIG, Zack ArriolaDate and Time Signed: 11/11/23 13:28 EST 10-16-2022 [...] concerns. Patient agrees with plan of care. [facility]07-28-2022 NoteHNO ID: [id number] Author: ST Rick Service: ? Author Type: Advertising Display Rotator Type: Progress Notes Filed: 04/12/2022 3:50 PM Note Text: DATE OF PHOTOS: 04/12/2022 Body Part: Breasts, Abdomen, Leg(s) and Arms ST Rick April 12, 2022 3:49 [facility]07-28-2022 History of Present illness Narrative* ST Rick - 04/12/2022 3:49 PM EDT DATE OF PHOTOS: 04/12/2022 Body Part: Breasts, Abdomen, Leg(s) and Arms ST Rick April 12, 2022 3:49 PM [facility] NoteHNO ID: [id number] Author: Lazara Woods MD Service: ? Author [...] this visit. ALLERGIES A (more content not included)...[facility]07-27-2022 History of Present illness Narrative* Lazara [...] Past Histories independently gathered by the clinical senior office support assistant sosa and the remaining scribed note accurately describes [...] weeks. Lazara Woods MD [facility] Evaluation + Plan note Diagnostic Tests [...] Level 04/25/21 * Vitamin B12 Level 04/25/21 [facility]02-25-2022 NoteHNO ID: [id number] Author: Ena Mcginnis MD Service: ? Author [...] mcg, Iron 45-60 mg and calcium citrate 6743-3529 mg/day PHYSICAL EXAMINATION: Weight loss: BMI 23.2 [...] ? Doing great ? EGD Ena Mcginnis [facility]09-30-2021 NoteHNO ID: [id number] Author: Ena Mcginnis MD Service: ? Author [...] mcg, Iron 45-60 mg and calcium citrate 4496-4871 mg/day ? COMPLETE REVIEW OF SYSTEMS Constitutional--Negative [...] which included preparing to see the patient, [id number] patient care and completing clinical documentation.[facility]08-10-2021 Evaluation + Plan note Future Scheduled Tests Laboratory* Copper Level 04/25/21 * Zinc Level 04/25/21 * Vitamin A Level 04/25/21 * Vitamin B1 04/25/21 * Vitamin B6 Lvl 04/25/21 * Vitamin D 25 Hydroxy 04/25/21 * Ferritin 04/25/21 * Folate Level 04/25/21 * Iron Level 04/25/21 * Magnesium Level 04/25/21 * Vitamin B12 Level 04/25/21 [facility] [id number] History of Past illness Narrative* Problem Noted Date Resolved Date Morbid obesity 05/04/2020 01/23/2021 documented as of this encounter (statuses as of 04/12/2022) [facility]08-19-2020 History of Past illness Narrative* Problem Noted Date Resolved Date Morbid obesity 05/04/2020 01/23/2021 documented as of this encounter (statuses as of 04/12/2022) [facility] Future Appointments Appointment Date:09/24/2022 10:30:00 AM Scheduled Provider:Sridevi Goetz PA-C Location:[facility] Appointment Type:Pain Management - Follow Up ([facility]) [facility] Diagnosis Hx of bariatric surgery- Primary Bariatric surgery status Excess skin [facility] this encounter [facility] noteNo assessment information availableW[facility] Work Phone: Evaluation note* Diagnosis Migraine without [...] lumbosacral intervertebral disc documented in this encounter [facility]* Diagnosis Migraine without status migrainosus, not intractable, unspecified migraine type (CMS/HCC)- Primary Myalgia Unspecified myalgia and myositis Cervical spondylosis Cervical spondylosis without myelopathy Fibromyalgia Unspecified myalgia and myositis Degeneration of intervertebral disc of lumbar region, unspecified whether pain present [facility] N[facility] No data available for this section [facility] Hospital Discharge instructions No data available for this section [facility] Progress note No data available for this section [facility] Summary Purpose Family History [...] FoundDocuments on File Type Date Recorded Patient Presentation Team Member Expl anation Advance Directive(s) 12/16/2020 8:43 AM Advance Directive(s) 12/15/2020 1:00 PM Advance Directive(s) 10/24/2020 10:04 AM Advance Directive(s) 10/04/2020 4:19 PM Advance Directive Response Recorded Date/ Time Advance Directives No April 30, 2018 4:07pm Hospital Course Note HNO ID: [id number] Author: Douglas Torrez Service: General Surgery Author [...] (more content not included)... Note HNO ID: [id number] Author: Devonte Zurita Service: Anesthesiology Author Type: Nurse Desktop Analyst Type: Anesthesia Procedure Notes Filed: 10/24/2020 2:25 PM Note Text: ANESTHESIOLOGY PROCEDURE NOTE Airway General Information Procedure Start Time/Medication Administration: 10/24/2020 2:14 PM Patient location during procedure: OR Timeout Performed Pre-procedure: timeout performed Patient identity confirmed: arm band, care child care team lead and patient Staffing Anesthesiologist: Brandon Stoddard HOT FRAME TENDER: Pallavi Zurita Performed by: SHAVON Indications [...] (more content not included)... Note HNO ID: [id number] Author: Devonte Zurita Service: Anesthesiology Author Type: Nurse Desktop Analyst Type: Anesthesia Procedure Notes Filed: 10/24/2020 2:26 [...] October 24, 2020 TIME: 2:26 PM CSN: [id number] Note HNO ID: [id number] Author: Douglas Torrez Service: General Surgery Author Type: Physician Type: Brief Op Note Filed: 10/24/2020 4:36 PM Note Text: BRIEF OPERATIVE NOTE [facility] LOG ID: [id number] SURGERY/PROCEDURE DATE: 10/24/2020 INCISION/PROCEDURE START TIME: 2:28 PM INCISION CLOSE/PROCEDURE END TIME: 4:31 PM SURGEON(S) AND MAIL ROOM(S): Surgeon(s) and Role: * Ena Mcginnis - Primary * Jarad Clarke (Res) DO Steven - Resident - Assisting * Presley Torrez - Resident - Assisting No Additional Staff PROCEDURES AND ANESTHESIA: Procedure(s) and Anesthesia Type: * LAPAROSCOPIC GASTRIC RESTRICTIVE SURG W/ BYPASS AND TREVOR-EN-Y Procedure Findings Note HNO ID: [id number] Author: Devonte Zurita Service: Anesthesiology Author Type: Nurse Desktop Analyst Type: Anesthesia Procedure Notes Filed: 10/24/2020 2:25 PM Note Text: ANESTHESIOLOGY PROCEDURE NOTE Airway General Information Procedure Start Time/Medication Administration: 10/24/2020 2:14 PM Patient location during procedure: OR Timeout Performed Pre-procedure: timeout performed Patient identity confirmed: arm band, care child care team lead and patient Staffing Anesthesiologist: Brandon Stoddard HOT FRAME TENDER: Pallavi Zurita Performed by: SHAVON Indications [...] (more content not included)... Note HNO ID: [id number] Author: Devonte Zurita Service: Anesthesiology Author Type: Nurse Desktop Analyst Type: Anesthesia Procedure Notes Filed: 10/24/2020 2:26 [...] October 24, 2020 TIME: 2:26 PM CSN: [id number] Note HNO ID: [id number] Author: Douglas Torrez Service: General Surgery Author Type: Physician Type: Brief Op Note Filed: 10/24/2020 4:36 PM Note Text: BRIEF OPERATIVE NOTE [facility] LOG ID: [id number] SURGERY/PROCEDURE DATE: 10/24/2020 INCISION/PROCEDURE START TIME: 2:28 PM INCISION CLOSE/PROCEDURE END TIME: 4:31 PM SURGEON(S) AND MAIL ROOM(S): Surgeon(s) and Role: * Ena Mcginnis - Primary * Jarad Clarke (Res) DO Steven - Resident - Assisting * Presley oTrrez - Resident - Assisting No Additional Staff PROCEDURES AND ANESTHESIA: Procedure(s) and Anesthesia Type: * LAPAROSCOPIC GASTRIC RESTRICTIVE SURG W/ BYPASS AND TREVOR-EN-Y Additional Source Comments INFORMATION SOURCE (unrecogn ized section and content) DATE CREATED AUTHOR 08/11/2020 [facility] DATE CREATED AUTHOR AUTHOR'S ORGANIZ ATION 10/18/2020 [facility] DATE CREATED AUTHOR AUTHOR'S ORGANIZ ATION 12/17/2020 [facility] DATE CREATED AUTHOR AUTHOR'S ORGANIZ ATION 04/16/2022 [facility] DATE CREATED AUTHOR AUTHOR'S ORGANIZ ATION 05/10/2022 [facility] DATE CREATED AUTHOR AUTHOR'S ORGANIZ ATION 12/26/2023 [facility] DATE CREATED AUTHOR AUTHOR'S ORGANIZ ATION 01/09/2024 [facility] DATE CREATED AUTHOR AUTHOR'S ORGANIZ ATION 09/27/2024 [facility] DATE CREATED AUTHOR AUTHOR'S ORGANIZ ATION 10/07/2024 [facility] Care Team (unrecognized sect ion and content) Nursery Worker Relationship Specialty Start Date End Date Jose Castano III, DO [address] [place] [address] PCP - General Family Practice 10/04/20 Nursery Worker Relationship Specialty Start Date End Date Jose Castano III, DO [address] [place] [address] PCP - General Family Practice 10/04/20 Team Status: Inactive Member Role Status Dates Zack Berman MD FACS Attending Provider Active Start: December 25, 2023 End: December 25, 2023 Nursery Worker Relationship Specialty Start Date End Date Candis Colindres MD [address] [place] [phone] PCP - General Family Medicine 01/30/24 Nursery Worker Relationship Specialty Start Date End Date Candis Colindres MD [address] [place] [phone] PCP - General Family Medicine 01/30/24 Nursery Worker Relationship Specialty Start Date End Date Candis Colindres MD [address] [place] [phone] PCP - General Family Medicine 01/30/24 Nursery Worker Relationship Specialty Start Date End Date Candis Colindres MD [address] [place] [phone] PCP - General Family Medicine 01/30/24 Source Comments (unrecognize d section and content) In the event this informatio n is protected by the Federal Confidentiality of Alcohol and Drug Abuse Patient Records regulations: The Federal rules restrict any use of the information to criminally investigate or prosecute any alcohol or drug abuse patient.[facility] the event this information is protected by the Federal Confidentiality of Alcohol and Drug Abuse Patient Records regulations: The Federal rules restrict any use of the information to criminally investigate or prosecute any alcohol or drug abuse patient.[facility] Reason for Visit (unrecogniz ed section [...] BE BASED ON THE PRIMARY CLINICAL RECORDS. [facility]. provides no warranty or guarantee of the accuracy or completeness of information in this document.
--- NOTE | 2024-10-08 08:04 | PM.CN ---
Consult Note: HPI Data of Consult Patient: known to practice within the last 3 years Requesting Physician: Miladys Vivas NP Primary Care Provider: PETEY BURNETT Consult Narrative Reason for consult: f/u Narrative: Nica Estrada a pleasant 39 year old female presents for evaluation and management of chronic low back and neck pain. hx of cervical and lumbar stenosis. has failed to benefit from 6 weeks PT/HEP, heat/ice, tylenol, NSAIDs. currently utilizes duloxetine, lyrica, tizanidine with mild relief. recently underwent repeat bilateral L5/S1 TFESI with 90% improvement ongoing. Pain today 7/10 in bilateral shoulders and neck with numbness and tingling of bilateral upper extremities. previous cervical MANUEL provided >50% improvement for 3 months. Pain increased with standing, walking, bending and sleep, improved with stretching. cc:: CC: Miladys Vivas NP Review of Systems ROS Status of ROS 10 or more systems reviewed and unremarkable except as noted in history and below Musculoskeletal Reports: neck pain PFSH PFSH Medical History (Updated 09/23/24 @ 08:13 by Miladys Vivas NP) Change in bowel habits ?R19.4 - Change in bowel habit (ICD-10) Prediabetes ?R73.03 - Prediabetes (ICD-10) Obesity ?E66.9 - Obesity, unspecified (ICD-10) Obstructive hydronephrosis Migraines ?G43.909 - Migraine, unspecified, not intractable, without status migrainosus (ICD-10) Lipoma of back ?D17.1 - Benign lipomatous neoplasm of skin and subcutaneous tissue of trunk (ICD-10) Abdominal pain ?R10.9 - Unspecified abdominal pain (ICD-10) Dyssynergia ?R27.8 - Other lack of coordination (ICD-10) Depression ?F32.A - Depression, unspecified (ICD-10) Colon polyps ?K63.5 - Polyp of colon (ICD-10) Chronic constipation ?K59.09 - Other constipation (ICD-10) Asthma ?J45.909 - Unspecified asthma, uncomplicated (ICD-10) Hiatal hernia ?K44.9 - Diaphragmatic hernia without obstruction or gangrene (ICD-10) Fibromyalgia ?M79.7 - Fibromyalgia (ICD-10) Osteoarthritis ?M19.90 - Unspecified osteoarthritis, unspecified site (ICD-10) Low back pain ?M54.50 - Low back pain, unspecified (ICD-10) Anxiety ?F41.9 - Anxiety disorder, unspecified (ICD-10) Hypercholesterolemia ?E78.00 - Pure hypercholesterolemia, unspecified (ICD-10) Hypertension ?I10 - Essential (primary) hypertension (ICD-10) Surgical History H/O gastric bypass ?Z98.84 - Bariatric surgery status (ICD-10) S/P foot surgery, right ?Z98.890 - Other specified postprocedural states (ICD-10) S/P cholecystectomy ?Z90.49 - Acquired absence of other specified parts of digestive tract (ICD-10) S/P ?Z98.891 - History of uterine scar from previous surgery (ICD-10) Family History Other Family history of myocardial infarction Social History Within the past year, how often did you have a drink containing alcohol: 2-4 times a month Smoking status: Never smoker Non-prescribed substance use: denies use 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 Highest level of school completed/degree received: some college, no degree Meds Home Medications and Allergies Home Medications ?Medication ?Instructions ?Recorded ?Confirmed ?Type alprazolam 0.25 mg tablet (Xanax) 0.25 mg PO DAILY PRN anxiety 03/27/23 09/28/24 History duloxetine 30 mg capsule,delayed 90 mg PO QDAY 03/27/23 09/28/24 History release cariprazine 1.5 mg capsule 1.5 mg PO DAILY 08/09/23 09/28/24 History (Vraylar) ondansetron 4 mg disintegrating 4 mg PO DAILY PRN nausea and 08/09/23 09/28/24 History tablet vomiting rimegepant 75 mg disintegrating 75 mg PO DAILY PRN migraine 08/09/23 09/28/24 History tablet (Nurtec ODT) headache trazodone 50 mg tablet 50 mg PO DAILY 08/09/23 09/28/24 History pregabalin 100 mg capsule (Lyrica) 100 mg PO TID #90 caps 09/23/24 09/28/24 Rx tizanidine 4 mg capsule See Rx Instructions .Route 09/23/24 09/28/24 Rx .COMPLEX PRN muscle spasticity #180 caps Allergies Allergy/AdvReac Type Severity Reaction Status Date / Time latex Allergy Severe Rash Verified 09/28/24 07:03 amitriptyline AdvReac Mild Nausea Verified 09/28/24 07:03 NSAIDS (Non-Steroidal AdvReac Unknown Verified 09/28/24 07:03 Anti-Inflamma Exam Constitutional Documenting provider has reviewed patient's vital signs: yes Common normals: no apparent distress, oriented x3, healthy appearing, alert and well nourished General appearance: cooperative HENMT Common normals: normocephalic, hearing grossly normal bilaterally and moist oral mucous membranes Head and scalp: normocephalic Eye Common normals: PERRL Pupil: PERRL Neck & C-Spine Common normals: full ROM General: normal visual inspection Cervical spine: cervical ROM normal, pain with cervical ROM, cervical spine tenderness, paracervical muscle tenderness and trapezius muscle tenderness Other: bilateral C5/6 radiculopathy altered sensation strength 4/5 in BUE positive spurlings Chest Common normals: inspection of chest normal Respiratory Common normals: normal respiratory effort, no retractions and no use of accessory muscles Back & Pelvis Lumbar spine/lower back: normal to inspection, lumbar ROM normal and straight leg raise negative bilaterally; no pain with ROM Neuro Common normals: oriented x3, CN's II-XII intact bilaterally, moves all extremities, no focal motor deficits, no sensory deficits noted and deep tendon reflexes 2+ bilaterally Sensorium/orientation: alert Motor exam: strength 5/5 throughout and no movement abnormalities noted Psych Common normals: mental status grossly normal, thought process normal, cooperative, affect normal, speech normal and activity/motor behavior normal Speech: normal speech Thought process: normal thought process Results Additional Findings Additional findings: If on a controlled substance or opioids, I have checked an OARRS report on this patient and there are no aberrancies noted in the prescribing history.??If on a controlled substance or opioid a drug screen was completed and reviewed within the last year, and if there has not been a drug screen completed we ordered one today to monitor higher risk, state monitored pain medication use. As part of providing excellent, safe, comprehensive care, the following was completed at our patient's visit: 1. A medication reconciliation and review to ensure accurate knowledge of current/active medications, including asking our patients to inform us about any yvih-[id number]-[id number] medications or herbal remedies/nutritional supplements/alternative remedies. 2. A review to specifically ensure our patients have had annual screening for screening for depression, screening for tobacco use, and screening for unhealthy alcohol use. For concerning screenings had a discussion with the patient, provided patient education, and recommended follow-up with primary care provider when appropriate. If patient noted with a risk of falling, they received education on strength, gait, and balance training to prevent future risk of falling. Portions of this note may have been carried over from the previous visit and updated as appropriate. Please note this office utilizes paper charting in addition to the electronic medical record. A list of current medications, vitals, and PMH is available there as the clinical staff outside of myself do not have access to [employer] charting during the clinic day operations. As part of providing quality comprehensive care the current medications, vitals, and PMH were reviewed in the paper chart. Assessment and Plan Assessment and Plan (1) Lumbar stenosis with neurogenic claudication: (2) Cervical radiculopathy: (3) Cervical stenosis of spinal canal: (4) Myalgia: Plan bilateral C5-6 TFESI under fluoroscopy for cervical stenosis and cervical radiculopathy, risks vs benefits reviewed. previous injection provided >50% improvement for 3 months continue HEP as tolerated continue current medications f/u 2 weeks after injection
== END 2024-10-08 07:46 | disposition home or self-care (01) ==
LOC: PM 07:46
PROVIDERS: PCP Physician Assistant; Visit Provider Nurse Practitioner
DX: M48.062 Spinal stenosis, lumbar region with neurogenic claudication (principal); M54.12 Radiculopathy, cervical region; M48.02 Spinal stenosis, cervical region; M79.18 Myalgia, other site
CPT/HCPCS: G0463

== ENCOUNTER 2024-10-19 07:38 | Day surgery (SDC) | payer OTHER, SELFPAY ==
[2024-10-19 07:51] VITALS: BP 129/84; PULSE 76; TEMP 36.8; O2SAT 98
[2024-10-19 08:45] VITALS: BP 128/61; PULSE 73; O2SAT 99
[2024-10-19 08:46] VITALS: BP 128/72; PULSE 68; O2SAT 100
--- NOTE | 2024-10-19 08:48 | W.PM.PROCNOT ---
Date of procedure: 10/19/24 Pre-op diagnosis: M54.12 Post-op diagnosis: same as pre-op Procedure: Procedure: Bilateral C5-6 transforaminal epidural steroid injection Medications: Bupivacaine 0.25% 1cc, lidocaine 2% 1cc, dexamethasone 10mg The patient was seen and examined in the preoperative holding area.? Informed consent was obtained and placed on the chart.? Patient was brought to the medical procedure unit and placed in the prone position where a timeout was completed verifying the correct patient, procedure site, position, and planned special equipment using sterile aseptic technique.? Under direct fluoroscopic visualization a 25-gauge Quincke tipped spinal needle was advanced at level left C5-6 to the designated neural foramen where contrast dye was injected to show adequate spread.? There was no evidence of vascular or adverse uptake.? Epidural spread was appreciated.? The above-mentioned injectate was then placed in a 1.5 mL aliquot preceded by negative aspiration.? The needle was removed. The same procedure, at the same level, was completed on the opposite side. ? Patient was taken to the postprocedural recovery area and monitored for an appropriate length of time before found suitable for discharge in the accompaniment of a responsible adult. Anesthesia: Local Surgeon: Aaliyah Hampton Pathology: none sent Condition: stable Disposition: no change
[2024-10-19] MEDS: IOHEXOL 240 MG/ML - 10 ML VIAL 12 MG INJ (08:49)
[2024-10-19] MEDS: BUPIVACAINE HCL 0.25% PF 25 MG/10 ML VIAL INJ (08:49)
[2024-10-19] MEDS: DEXAMETHASONE SOD PHOS 10 MG/ML VIAL INJ (08:49)
[2024-10-19] MEDS: LIDOCAINE HCL 2% 400 MG/20 ML MDV INJ (08:50)
== END 2024-10-19 08:54 | disposition home or self-care (01) ==
LOC: SURGOUT 07:38
PROVIDERS: PCP Physician Assistant; Visit Provider Anesthesiology
DX: M54.12 Radiculopathy, cervical region (principal)
CPT/HCPCS: 64479; J0665; J1100; Q9966

== ENCOUNTER 2024-10-28 07:46 | Outpatient (OUT) | payer OTHER, SELFPAY ==
--- NOTE | 2024-10-28 07:47 | P.CN_ITS ---
Consult Note: HPI Data of Consult Patient: known to practice within the last 3 years Requesting Physician: Miladys Vivas NP Primary Care Provider: PETEY BURNETT Consult Narrative Reason for consult: f/u Narrative: Nica Estrada a pleasant 39 year old female presents for evaluation of chronic neck pain with radiculopathy. Pt has failed >6 weeks of PT/provider guided HEP, heat, ice, tylenol and cannot take NSAIDs due to hx of gastric bypass. Previous cervical MRI consistent with cervical spondylosis and cervical stenosis. continues to utilize tylenol, tizanidine, lyrica, duloxetine, and trazodone without side effects. Recently underwent bilateral C5-6 TFESI with >50% improvement in radicular pain ongoing. Pain in axial neck 4/10 increasing to 7/10 in neck and shoulders, tight aching nagging. Pain increased with standing, walking, PM, lifting, doing dishes. Pain improved with heat and stretching. cc:: CC: Miladys Vivas NP Review of Systems ROS Status of ROS 10 or more systems reviewed and unremark able except as noted in history and below Musculoskeletal Reports: neck pain; Denies: extremity pain PFSH [facility] Medical History (Updated 10/28/24 @ 07:56 by Miladys Vivas NP) Change in bowel habits ?R19.4 - Change in bowel habit (ICD-10) Prediabetes ?R73.03 - Prediabetes (ICD-10) Obesity ?E66.9 - Obesity, unspecified (ICD-10) Obstructive hydronephrosis Migraines ?G43.909 - Migraine, unspecified, not intractable, without status migrainosus (ICD-10) Lipoma of back ?D17.1 - Benign lipomatous neoplasm of skin and subcutaneous tissue of trunk (ICD-10) Abdominal pain ?R10.9 - Unspecified abdominal pain (ICD-10) Dyssynergia ?R27.8 - Other lack of coordination (ICD-10) Depression ?F32.A - Depression, unspecified (ICD-10) Colon polyps ?K63.5 - Polyp of colon (ICD-10) Chronic constipation ?K59.09 - Other constipation (ICD-10) Asthma ?J45.909 - Unspecified asthma, uncomplicated (ICD-10) Hiatal hernia ?K44.9 - Diaphragmatic hernia without obstruction or gangrene (ICD-10) Fibromyalgia ?M79.7 - Fibromyalgia (ICD-10) Osteoarthritis ?M19.90 - Unspecified osteoarthritis, unspecified site (ICD-10) Low back pain ?M54.50 - Low back pain, unspecified (ICD-10) Anxiety ?F41.9 - Anxiety disorder, unspecified (ICD-10) Hypercholesterolemia ?E78.00 - Pure hypercholesterolemia, unspecified (ICD-10) Hypertension ?I10 - Essential (primary) hypertension (ICD-10) Surgical History H/O gastric bypass ?Z98.84 - Bariatric surgery status (ICD-10) S/P foot surgery, right ?Z98.890 - Other specified postprocedural states (ICD-10) S/P cholecystectomy ?Z90.49 - Acquired absence of other specified parts of digestive tract (ICD- 10) S/P ?Z98.891 - History of uterine scar from previous surgery (ICD-10) Family History Other Family history of myocardial infarction Social History Within the past year, how often did you have a drink containing alcohol: 2-4 times a month Smoking status: Never smoker Non-prescribed substance use: denies use 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 Highest level of school completed/degree received: some college, no degree Meds Home Medications and Allergies Home Medications ?Medication ?Instructions ?Recorded ?Confirmed ?Type alprazolam 0.25 mg tablet (Xanax) 0.25 mg PO DAILY PRN anxiety 03/27/23 10/19/24 History duloxetine 30 mg capsule,delayed 90 mg PO QDAY 03/27/23 10/19/24 History release cariprazine 1.5 mg capsule 1.5 mg PO DAILY 08/09/23 10/19/24 History (Vraylar) ondansetron 4 mg disintegrating 4 mg PO DAILY PRN nausea and 08/09/23 10/19/24 History tablet vomiting rimegepant 75 mg disintegrating 75 mg PO DAILY PRN migraine 08/09/23 10/19/24 History tablet (Nurtec ODT) headache trazodone 50 mg tablet 50 mg PO DAILY 08/09/23 10/19/24 History pregabalin 100 mg capsule (Lyrica) 100 mg PO TID #90 caps 09/23/24 10/19/24 Rx tizanidine 4 mg capsule See Rx Instructions .Route 09/23/24 10/19/24 Rx .COMPLEX PRN muscle spasticity #180 caps Allergies Allergy/AdvReac Type Severity Reaction Status Date / Time latex Allergy Severe Rash Verified 10/19/24 07:53 amitriptyline AdvReac Mild Nausea Verified 10/19/24 07:53 NSAIDS (Non-Steroidal AdvReac Unknown Verified 10/19/24 07:53 Anti-Inflamma Exam Constitutional Documenting provider has reviewed patient's vital signs: yes Common normals: no apparent distress, oriented x3, healthy appearing, alert and well nourished General appearance: cooperative HENMT Common normals: normocephalic, hearing grossly normal bilaterally and moist oral mucous membranes Head and scalp: normocephalic Eye Common normals: PERRL Pupil: PERRL Neck & C-Spine Common normals: full ROM General: normal visual inspection Cervical spine: pain with cervical ROM, loss of normal cervical lordosis, cervical spine tenderness, paracervical muscle tenderness, paracervical muscle spasm and trapezius muscle tenderness Other: Positive facet loading, increased pain over C2-5 facets strength in BUE 5/5 sensation intact BUE, negative spurlings Chest Common normals: inspection of chest normal Respiratory Common normals: normal respiratory effort, no retractions and no use of accessory muscles Neuro Common normals: oriented x3, CN's II-XII intact bilaterally, moves all extremities, no focal motor deficits, no sensory deficits noted and deep tendon reflexes 2+ bilaterally Sensorium/orientation: alert Motor exam: strength 5/5 throughout and no movement abnormalities noted Psych Common normals: mental status grossly normal, thought process normal, cooperative, affect normal, speech normal and activity/motor behavior normal Speech: normal speech Thought process: normal thought process Results Additional Findings Additional findings: If on a controlled substance or opioids, I have checked an OARRS report on this patient and there are no aberrancies noted in the prescribing history.??If on a controlled substance or opioid a drug screen was completed and reviewed within the last year, and if there has not been a drug screen completed we ordered one today to monitor higher risk, state monitored pain medication use. As part of providing excellent, safe, comprehensive care, the following was completed at our patient's visit: 1. A medication reconciliation and review to ensure accurate knowledge of current/active medications, including asking our patients to inform us about any tmkb-wyl-bpqlzec medications or herbal remedies/nutritional supplements/alternative remedies. 2. A review to specifically ensure our patients have had annual screening for screening for depression, screening for tobacco use, and screening for unhealthy alcohol use. For concerning screenings had a discussion with the patient, provided patient education, and recommended follow-up with primary care provider when appropriate. If patient noted with a risk of falling, they received education on strength, gait, and balance training to prevent future risk of falling. Portions of this note may have been carried over from the previous visit and updated as appropriate. Please note this office utilizes paper charting in addition to the electronic medical record. A list of current medications, vitals, and PMH is available there as the clinical staff outside of myself do not have access to [employer] charting during the clinic day operations. As part of providing quality comprehensive care the current medications, vitals, and PMH were reviewed in the paper chart. Assessment and Plan Assessment and Plan (1) Cervical radiculopathy: (2) Cervical stenosis of spinal canal: (3) Cervical spondylosis: Assessment and Plan: The patient has had over 3 months of moderate to severe neck pain with functional impairment and inadequate response to conservative care including NSAIDS (unless there are contraindication such as concurrent blood thinners), multiple oral or topical pain medications, and home exercise program/physical therapy.? Patient has completed >6 weeks of guided home exercise program and/or formal physical therapy program without relief of their symptoms.? I have reviewed the imaging of the cervical spine and no red flags were identified.? The Oswestry Disability Index was completed, and the patient scored a 28%.? The patient noted the following:?? mild to moderate pain, pain with ADLs, pain impacting social life and travel ? We discussed the risks and benefits of the procedure with the patient, and we are NOT planning on using sedation as outlined in the guidelines from Medicare unless there is a documented reason that sedation would be strongly recommende d.?? ?The procedure will be completed with fluoroscopic guidance.? Plan bilateral C3-4 C4-5 MBB x2 working towards RFA under fluoroscopy for axial neck pain secondary to cervical spondylosis continue HEP as tolerated continue current medications f/u after each injection, or 3 months
== END 2024-10-28 07:47 | disposition home or self-care (01) ==
LOC: PM 07:46
PROVIDERS: PCP Physician Assistant; Visit Provider Nurse Practitioner
DX: M54.12 Radiculopathy, cervical region (principal); M48.02 Spinal stenosis, cervical region; M47.812 Spondylosis without myelopathy or radiculopathy, cervical region
CPT/HCPCS: G0463

== ENCOUNTER 2025-01-20 07:40 | Outpatient (OUT) | payer OTHER, SELFPAY ==
--- NOTE | 2025-01-20 08:00 | PM.CN ---
Consult Note: HPI Data of Consult Patient: known to practice within the last 3 years Requesting Physician: Miladys Vivas NP Primary Care Provider: PETEY BURNETT Consult Narrative Reason for consult: f/u Narrative: Nica Estrada a pleasant 39 year old female presents for evaluation of chronic low back pain secondary to spondylosis. Pt has failed to benefit from > 6 weeks of provider guided HEP, heat, ice, tylenol, and stretching. Pt cannot take nsaids due to hx of gastric bypass. currently on pregabalin, trazadone, tizanidine, duloxetine, and tylenol without side effects. Pain today 8/10 increasing to 10/10 in low back without numbness tingling or weakness. Pt reports prior bilateral L4-5 L5-S1 facet RFA provided >50% improvement in low back pain greater than 6 months and she feels this is wearing off. cc:: CC: Miladys Vivas NP Review of Systems ROS Status of ROS 10 or more systems reviewed and unremarkable except as noted in history and below Musculoskeletal Reports: back pain and neck pain; Denies: extremity pain [facility] Medical History (Updated 10/28/24 @ 07:56 by Miladys Vivas NP) Change in bowel habits ?R19.4 - Change in bowel habit (ICD-10) Prediabetes ?R73.03 - Prediabetes (ICD-10) Obesity ?E66.9 - Obesity, unspecified (ICD-10) Obstructive hydronephrosis Migraines ?G43.909 - Migraine, unspecified, not intractable, without status migrainosus (ICD-10) Lipoma of back ?D17.1 - Benign lipomatous neoplasm of skin and subcutaneous tissue of trunk (ICD-10) Abdominal pain ?R10.9 - Unspecified abdominal pain (ICD-10) Dyssynergia ?R27.8 - Other lack of coordination (ICD-10) Depression ?F32.A - Depression, unspecified (ICD-10) Colon polyps ?K63.5 - Polyp of colon (ICD-10) Chronic constipation ?K59.09 - Other constipation (ICD-10) Asthma ?J45.909 - Unspecified asthma, uncomplicated (ICD-10) Hiatal hernia ?K44.9 - Diaphragmatic hernia without obstruction or gangrene (ICD-10) Fibromyalgia ?M79.7 - Fibromyalgia (ICD-10) Osteoarthritis ?M19.90 - Unspecified osteoarthritis, unspecified site (ICD-10) Low back pain ?M54.50 - Low back pain, unspecified (ICD-10) Anxiety ?F41.9 - Anxiety disorder, unspecified (ICD-10) Hypercholesterolemia ?E78.00 - Pure hypercholesterolemia, unspecified (ICD-10) Hypertension ?I10 - Essential (primary) hypertension (ICD-10) Surgical History H/O gastric bypass ?Z98.84 - Bariatric surgery status (ICD-10) S/P foot surgery, right ?Z98.890 - Other specified postprocedural states (ICD-10) S/P cholecystectomy ?Z90.49 - Acquired absence of other specified parts of digestive tract (ICD-10) S/P ?Z98.891 - History of uterine scar from previous surgery (ICD-10) Family History Other Family history of myocardial infarction Social History Within the past year, how often did you have a drink containing alcohol: 2-4 times a month Smoking status: Never smoker Non-prescribed substance use: denies use 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 Highest level of school completed/degree received: some college, no degree Meds Home Medications and Allergies Home Medications ?Medication ?Instructions ?Recorded ?Confirmed ?Type alprazolam 0.25 mg tablet (Xanax) 0.25 mg PO DAILY PRN anxiety 03/27/23 10/19/24 History duloxetine 30 mg capsule,delayed 90 mg PO QDAY 03/27/23 10/19/24 History release cariprazine 1.5 mg capsule 1.5 mg PO DAILY 08/09/23 10/19/24 History (Vraylar) ondansetron 4 mg disintegrating 4 mg PO DAILY PRN nausea and 08/09/23 10/19/24 History tablet vomiting rimegepant 75 mg disintegrating 75 mg PO DAILY PRN migraine 08/09/23 10/19/24 History tablet (Nurtec ODT) headache trazodone 50 mg tablet 50 mg PO DAILY 08/09/23 10/19/24 History pregabalin 100 mg capsule (Lyrica) 100 mg PO TID #90 caps 09/23/24 10/19/24 Rx tizanidine 4 mg capsule See Rx Instructions .Route 09/23/24 10/19/24 Rx .COMPLEX PRN muscle spasticity #180 caps Allergies Allergy/AdvReac Type Severity Reaction Status Date / Time latex Allergy Severe Rash Verified 10/19/24 07:53 amitriptyline AdvReac Mild Nausea Verified 10/19/24 07:53 NSAIDS (Non-Steroidal AdvReac Unknown Verified 10/19/24 07:53 Anti-Inflamma Exam Constitutional Documenting provider has reviewed patient's vital signs: yes Common normals: no apparent distress, oriented x3, healthy appearing, alert and well nourished General appearance: cooperative HENMT Common normals: normocephalic, hearing grossly normal bilaterally and moist oral mucous membranes Head and scalp: normocephalic Eye Common normals: PERRL Pupil: PERRL Neck & C-Spine Common normals: full ROM General: normal visual inspection Cervical spine: pain with cervical ROM, loss of normal cervical lordosis, cervical spine tenderness, paracervical muscle tenderness, paracervical muscle spasm and trapezius muscle tenderness Other: Positive facet loading, increased pain over C2-5 facets strength in BUE 5/5 sensation intact BUE, negative spurlings Chest Common normals: inspection of chest normal Respiratory Common normals: normal respiratory effort, no retractions and no use of accessory muscles Back & Pelvis Lumbar spine/lower back: ROM limited, pain with ROM and lumbar spinal tenderness Lumbar spinal tenderness location: L3, L4 and L5; no paraspinal muscle tenderness and no paraspinal muscle spasm Sacroiliac joints: SI joint(s) abnormal Other: positive facet loading strength 5/5 in BLE sensation intact BLE Extremity Common normals: normal to inspection and full ROM Neuro Common normals: oriented x3 Sensorium/orientation: alert Motor exam: strength 5/5 throughout and no movement abnormalities noted Psych Common normals: mental status grossly normal, thought process normal, cooperative, affect normal, speech normal and activity/motor behavior normal Speech: normal speech Thought process: normal thought process Results Additional Findings Additional findings: If on a controlled substance or opioids, I have checked an [place] report on this patient and there are no aberrancies noted in the prescribing history.??If on a controlled substance or opioid a drug screen was completed and reviewed within the last year, and if there has not been a drug screen completed we ordered one today to monitor higher risk, state monitored pain medication use. As part of providing excellent, safe, comprehensive care, the following was completed at our patient's visit: 1. A medication reconciliation and review to ensure accurate knowledge of current/active medications, including asking our patients to inform us about any [id number] medications or herbal remedies/nutritional supplements/alternative remedies. 2. A review to specifically ensure our patients have had annual screening for screening for depression, screening for tobacco use, and screening for unhealthy alcohol use. For concerning screenings had a discussion with the patient, provided patient education, and recommended follow-up with primary care provider when appropriate. If patient noted with a risk of falling, they received education on strength, gait, and balance training to prevent future risk of falling. Portions of this note may have been carried over from the previous visit and updated as appropriate. Please note this office utilizes paper charting in addition to the electronic medical record. A list of current medications, vitals, and PMH is available there as the clinical staff outside of myself do not have access to [employer] charting during the clinic day operations. As part of providing quality comprehensive care the current medications, vitals, and PMH were reviewed in the paper chart. Assessment and Plan Assessment and Plan (1) Lumbar spondylosis: Assessment and Plan: The patient has had over 3 months of moderate to severe axial facet mediated low back pain with functional impairment and inadequate response to conservative care including NSAIDS (unless there are contraindication such as concurrent blood thinners), multiple oral or topical pain medications, and home exercise program/physical therapy.? Patient has completed >6 weeks of guided home exercise program and/or formal physical therapy program without relief of their symptoms.? I have reviewed the imaging of the lumbar spine and no red flags were identified.? The imaging reveals radiographic findings consistent with lumbar spondylosis The Oswestry Disability Index was completed, and the patient scored a 42%.? The patient noted the following:?? moderate to severe pain with ADLs, standing, sitting, walking, social life, and travel We discussed the risks and benefits of the procedure with the patient, and we are NOT planning on using sedation as outlined in the guidelines from Medicare unless there is a documented reason that sedation would be strongly recommended.?? ?The procedure will be completed with fluoroscopic guidance.? (2) Cervical radiculopathy: (3) Cervical stenosis of spinal canal: (4) Cervical spondylosis: Assessment and Plan: .? Plan repeat bilateral L4-5 L5-S1 facet RFA under fluoroscopy with 10mg po valium 30-60mins prior to procedure due to anxiolysis. prior bilateral L4-5 l5-S1 facet RFA provided >50% improvement greater than 6 months in pain and functional ability continue HEP as tolerated continue current medications f/u 1 month after RFA complete
== END 2025-01-20 07:41 | disposition home or self-care (01) ==
LOC: PM 07:41
PROVIDERS: PCP Physician Assistant; Visit Provider Nurse Practitioner
DX: M47.816 Spondylosis without myelopathy or radiculopathy, lumbar region (principal); M54.12 Radiculopathy, cervical region; M48.02 Spinal stenosis, cervical region; M47.812 Spondylosis without myelopathy or radiculopathy, cervical region
CPT/HCPCS: G0463

== ENCOUNTER 2025-02-01 07:12 | Day surgery (SDC) | payer OTHER, SELFPAY ==
--- OUTSIDE RECORDS SUMMARY | 2025-02-01 07:15 | XMS_ITS | CCD ---
Author Organization [facility] Care Team Providers Care Adjunct Art History Instructor Name Role Phone Jose Castano III Primary [...] Unavailable Candis Colindres MD Primary Care Provider Berta KOENIG, Aaliyah Arellano Attending Unavailable Giedraitis , Andrius Eileen Attending Unavailable Giedraitis , Andrius Vytautandrzej Attending Unavailable Giedraitis , Andrius Eileen Attending Unavailable Giedraitis , Andrius Vytautandrzej Attending Unavailable Giedraitis , Andrius Vytautandrzej Attending Unavailable Giedraitis , Andrius Deniseytautandrzej Attending Unavailable Giedraitis , Andrius Deniseytkaycee Attending Unavailable Giedalejandra KOENIG, Andrius Vytkaycee Attending Unavailable Candis Colindres MD Primary Care Provider [phone] ARMINDA HELTON Attending Unavailable ARMINDA HELTON Attending Unavailable AUDREY VELA Attending Unavailable JOSE CASTANO Referring Unavailable GODWIN KEYES Attending Unavailable GODWIN KEYES Attending Unavailable GODWIN KEYES Attending Unavailable Allergies Allergy Classification Reported Allergen(s) Allergy Type Date of Onset Reaction(s) Facility (20 sources) Latex; Translations: [latex] Drug allergy 4 Cutaneous eruption (morphologic abnormality), Other: See Comments, Rash [facility] (20 sources) SUMAtriptan; Translations: [sumatriptan] Drug Allergy 7 Other: See Comments, GI intolerance [facility] (1 source) Amitriptyline Drug Allergy [facility] (1 source) NSAIDs Drug allergy (disorder) [facility] (1 source) Plasmin Drug Allergy [facility] (3 sources) Adhesive bandage; Translations: [Adhesive Bandage] Propensity to adverse reactions to substance [facility] [place] (1 source) SUMAtriptan Drug Allergy 8 [facility] (11 sources) Wound Dressing Adhesive Propensity to adverse reactions 4 [facility] Medications Current Medications Medication Drug Class(es) Dates Sig (Normalized) Sig (Original) [id number] 200 actuat albuterol 0.09 mg/actuat metered dose inhaler (11 sources) beta2-Adrenergic Agonist take 2 puff(s) by [...] 2018 12:00am atomoxetine 40 mg oral capsule (20 sources) Norepinephrine Reuptake Inhibitor Start: 05-19-2024 take 1 capsule by mouth once daily in the morning atomoxetine (Strattera) 40 MG capsule TAKE 1 CAPSULE BY MOUTH EVERY DAY IN THE MORNING FOR 30 DAYS 05/19/2024 Active Start: 11-13-2023 take 1 capsule by [facility] once daily atomoxetine (Strattera) 80 MG capsule Take 80 mg by mouth Daily 11/13/2023 Active Start: 10-28-2023 take 1 capsule by [facility] once daily in the morning Strattera 60 mg Cap 60 mg = 1 cap(s), Oral, qAM, Refills(s) 0 Start Date: 10/28/23 Status: Ordered Start: 10-28-2023 take 1 capsule by [facility] once daily in the morning [...] (Ineffective) Start: 10-28-2023 take 1 tablet by [facility] three times daily as needed for [...] # 50 tab(s), Refills(s) 1, Pharmacy: [facility], 155, cm, 01/25/21 14:00:00 EDT, Height/Length Dosing, 77.7, kg, 01/25/21 14:00:00 EDT, Weight Dosing Start Date: 01/25/21 Status: Ordered cariprazine 1.5 mg oral capsule (13 sources) Atypical Antipsychotic Start: 10-28-19 24 take 1 capsule by mouth once daily Vraylar 1.5 MG capsule Take 1 capsule by mouth Daily 12/24/2023 Active dicyclomine hydrochloride 10 mg oral capsule (8 sources) Anticholinergic Start: 03-01-20 22 take 4 capsules by mouth four times daily as needed for pain Bentyl 10 mg Cap 40 mg, Oral, QID, PRN Pain, # 45 cap(s), Refills(s) 4, Pharmacy: [facility], 155, cm, 03/01/22 15:01:00 EDT, Height/Length Dosing, 54, kg, 03/01/22 15:01:00 EDT, Weight Dosing Start Date: 03/01/22 Status: Ordered dicyclomine HCl (BENTYL ORAL) Take by mouth. 0 Active Comment on above: Take by mouth. DULoxetine 30 mg delayed release oral capsule (18 sources) Serotonin and Norepinephrine Reuptake Inhibitor Start: take 1 capsule by mouth once daily DULoxetine (Cymbalta) [address] capsule TAKE 1 CAPSULE BY MOUTH EVERY DAY FOR 30 DAYS 09/13/2024 Active Start: 11-23-2023 take 1 capsule by [facility] once daily DULoxetine (Cymbalta) 60 MG [...] propionate 0.05 mg/actuat metered dose nasal spray (11 sources) Corticosteroid take 1 spray(s) nasal route once daily fluticasone (Flonase) 50 MCG/ACT nasal spray Administer 1 spray into each nostril Daily Shake gently. Before first use, prime pump. After use, clean tip and replace cap. Active 1.5 ml fremanezumab-vfrm 150 mg/ml auto-injector (11 sources) Start: 04-06-2024 fremanezumab (Ajovy) 225 MG/1.5ML auto-injector Indications: Migraine without status migrainosus, not intractable, unspecified migraine type (CMS/HCC) Inject one 225 mg/1.5mL injection subcutaneously once per month 1.68 mL 11 04/06/2024 Active levonorgestrel 0.711447 mg/hr intrauterine system (13 sources) Progestin, Progestin-containin g Intrauterine Device Start: [...] pantoprazole 20 mg delayed release oral tablet (19 sources) Proton Pump Inhibitor Start: take 1 [...] daily. phentermine hydrochloride 37.5 mg oral tablet (7 sources) Sympathomimetic Amine Anorectic Start: 07-08-20 take 1 tablet by mouth once daily phentermine (Adipex-P) 37.5 MG tablet Take 37.5 mg by mouth Daily 07/08/2024 Active Miralax (2 sources) Osmotic Laxative Start: 01-26-20 take 1 g by mouth once daily MiraLax gm, Oral, Daily, Refill(s) 0 Start Date: 01/25/21 Status: Ordered pregabalin 100 mg oral capsule (15 sources) Start: 01-08-20 take 1 capsule by mouth in the [...] daily. rimegepant 75 mg disintegrating oral tablet (15 sources) Start: 07-16-2024 Rimegepant Sulfate (Nurtec) 75 [...] administration instructions). tiZANidine 4 mg oral tablet (10 sources) Central alpha-2 Adrenergic Agonist Start: take 1 tablet by mouth three times daily as needed tiZANidine (Zanaflex) 4 MG tablet TAKE ONE TABLET BY MOUTH THREE TIMES A DAY NEEDED FOR MUSCLE SPASTICITY 07/23/2024 Active Start: 04-27-2019 take 1 capsule by mo ut three times daily as needed tizanidine 4 [...] daily. traZODone hydrochloride 50 mg oral tablet (13 sources) Serotonin Reuptake Inhibitor Start: take 1 tablet by mouth at bedtime [...] Active Comment on above: Take by mouth. bupivacaine hydrochloride 2.5 mg/ml injectable solution (2 sources) Amide Local Anesthetic Start: 01-21-2025 End: 01-21-2025 bupivacaine (Marcaine) 0.25 % injection 3 mL Start: 01-21-2025 End: 01-21-2025 3 mL, Injection, Once PRN Pr ocedure, Starting on Gala 01/21/25 at 0852, For 1 dose cetirizine hydrochloride 10 mg oral tablet (2 sources) Histamine-1 Receptor Antagonist take 1 tablet by mouth once daily cetirizine (ZYRTEC) 10 mg tablet Take 10 mg by mouth once daily. 0 Active Comment on above: Take 10 mg by mouth once daily. Clotrimazole (2 sources) Azole Antifungal clotrimazole (A LEVAZOL TOPICAL) Apply to affected area. 0 Active [...] oral capsule (2 sources) Anti-epileptic Agent Start: 2020 take 1 capsule by mouth three times daily gabapentin (NEURONTIN) 100 mg capsule Take 1 capsule by mouth three times daily for 14 days. 42 capsule 0 10/13/2020 Active Comment on above: Take 1 capsule by [facility] three times daily for 14 days. Lactobacillus acidophilus (2 sources) Lactobacillus acidophilus (PROBIOTIC ORAL) Take by mouth. 0 Active Comment on above: Take by mouth. methylPREDNISolone 40 mg injection (2 sources) Corticosteroid Start: 2024 End: 2024 methylPREDNISolone Na Suc (PF) reconstituted solution 40 mg Start: 01-21-2025 End: 01-21-2025 40 mg, Injection, Once PRN P rocedure, Starting on Sat01/21/25 at 0852, For 1 dose multivit-min/iron/folic acid/K (BARIATRIC MULTIVITAMINS ORAL) (2 sources) multivit-min/iro n/folic acid/K (BARIATRIC MULTIVITAMINS ORAL) Take by mouth. 0 Active Comment on above: Take by mouth. nystatin 100 unt/mg topical powder (2 sources) Polyene Antifungal Sta rt: 1 nystatin (MYCOSTATIN) powder Indications: S/P gastric bypass , Fungal skin infection Apply to affected skin up to 4 times per day 60 g 2 01/23/2021 Active Comment on above: Apply to affected sk in up to 4 times per day psyllium 525 mg oral capsule (2 sources) Sta rt: 0 take 8 capsules by mouth once daily [...] 0.0139 mg/hr transdermal system (2 sources) Anticholinergic Sta rt: 1 scopolamine (TRANSDERM-SCOP) patch 1.5 mg/72 hr (1 [...] Comment on above: Take 1,000 mcg by [facility] once daily. Problems Active Problems Problem Classification Problem Date Documented Da te Episodic/Chronic Abdominal pain (8 sources) Left sided abdominal pain; Translations: [Left lower quadrant pain] Onset: 7 11-07-2020 Episodic Anxiety disorders (13 sources) Anxiety; Translations: [Anxiety disorder] Onset: 4 10-28-2023 Chronic Asthma (15 sources) Asthma; Translations: [Unspecified asthma, uncomplicated] Onset: 4 10-17-2020 Chronic Comment on above: Outside Source Comme nt: Overview: uses inhaler a few times a month Deficiency and other anemia (2 sources) Iron deficiency anemia; Translations: [Iron deficiency anemia, unspecified] 10-17-2020 Episodic Disorders of lipid metabolism (15 sources) Hyperlipidemia; Translations: [Hyperlipidemia, unspecified] Onset: 4 10-17-2020 Chronic Esophageal disorders (15 sources) Gastroesophageal reflux disease; Translations: [Gastro-esophageal reflux disease without esophagitis] Onset: 4 01-05-2020 Chronic Essential hypertension (15 sources) Hypertensive disorder; Translations: [Essential (primary) hypertension] Onset: 4 01-05-2020 Chronic Headache; including migraine (20 sources) Migraine; Translations: [Migraine, unspecified, not intractable, without status migrainosus] Onset: 4 01-05-2020 Chronic Mood disorders (13 sources) Depressive disorder; Translations: [Depression] Onset: 4 10-28-2023 Chronic Osteoarthritis (11 sources) Osteoarthritis; Translations: [Unspecified osteoarthritis, unspecified site] Onset: 4 02-06-2024 Chronic Other aftercare (1 source) Other director long term care (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 therapy; Translations: [OTH ED SPECIAL EDUCATION TEACHER CURRENT DRUG THERAPY] Onset: 2 Episodic Other and unspecified benign neoplasm (6 sources) Polyp of colon 05-19-2020 Episodic Other and unspecified benign neoplasm (2 sources) Lipoma of back 11-11-2023 Episodic Other and unspecified benign neoplasm (1 source) Lipoma of skin and subcutaneous tissue of trunk; Translations: [Benign lipomatous neoplasm of skin and subcutaneous tissue of trunk] Onset: 4 Episodic Other connective tissue disease (19 sources) Muscle pain; Translations: [Myalgia, unspecified site] Onset: 4 02-06-2024 Episodic Other connective tissue disease (1 source) Myofascial pain syndrome 01-21-2025 Episodic Other gastrointestinal disorders (7 sources) Chronic [...] and subcutaneous tissue] Episodic Residual codes; unclassified (13 sources) Obstructive sleep apnea syndrome; Translations: [Obstructive [...] Spondylosis; intervertebral disc disorders; other back problems (14 sources) Cervicalgia; Translations: [Spinal stenosis, cervical region] [...] 06-27-2017 06-27-2017 Episodic Diabetes mellitus without complication (13 sources) Prediabetes; Translations: [Prediabetes] Onset: 02-06-2024 10-28-2023 Episodic Headache; including migraine (13 sources) Headache; Translations: [Headache] Onset: 05-31-2024 05-31-2024 Episodic Immunizations and screening for infectious disease (2 sources) Anti-nuclear factor positive; Translations: [Other specified abnormal immunological findings in serum] Onset: 07-23-2018 07-23-2018 Episodic Nausea and vomiting (2 sources) Postoperative nausea and vomiting; Translations: [Nausea with vomiting, unspecified] Onset: 10-24-2020 10-24-2020 Episodic Other connective tissue disease (19 sources) Fibromyalgia; Translations: [Fibromyalgia] Onset: 07-23-2018 07-23-2018 Episodic Other diseases of kidney and ureters (2 sources) Hydronephrosis; Translations: [Hydronephrosis with renal and ureteral calculous obstruction] Onset: 06-27-2017 06-27-2017 Episodic Other nervous system disorders (11 sources) Paresthesia; Translations: [Paresthesia of skin] Onset: 05-31-2024 05-31-2024 Episodic Other non-traumatic joint disorders (4 sources) Pain in right knee; Translations: [PAIN IN RIGHT KNEE] Onset: 05-24-2021 Episodic Other skin disorders (2 sources) Alopecia; Translations: [Nonscarring hair loss, unspecified] Onset: 07-23-2018 07-23-2018 Episodic Other upper respiratory disease (11 sources) Nasal obstruction; Translations: [Other specified disorders of nose and nasal sinuses] Onset: 02-17-2024 02-17-2024 Episodic Results Test Name Value Interpretation Reference Range Facility Trigger Point Injection: rig ht cervical paraspinals, left cervical paraspinals, right upper trapezius, left upper trapeziuson 01-21-2025 DEE Rosales 01/22/20 8:54 AM Trigger Point Injection: right cervical paraspinals, left cervical paraspinals, right upper trapezius, left upper trapezius on 01/21/2025 8:52 AM Indications: pain, muscle spasm and myalgia Details: 25 G needle Medications: 40 mg methylPREDNISolone Na Suc (PF) 40 MG; 3 mL bupivacaine 0.25 % Outcome: tolerated well, no immediate complications Procedure, treatment alternatives, risks and benefits explained, specific risks discussed. Consent was given by the patient. [facility] Ambulatory Visit Summaryon 0 01-07-2024 Ambulatory Visit [...] Martinez When: Only if needed Where: [address] [place] [address]- Medications What How Much When [...] choosing us for your care. Normal [facility] General Surgery Office/Clini c Noteon 01-07-2024 [...] KOENIG, MASTER Martinez Only if needed [address] [place] [address]- Additional Instructions: Problem List/Past Medical [...] mRNA-1273 vaccine 09/28/2020 Recorded 2023-10-28: TPV20 Normal [facility] Comment on above: Result Comment: Elec tronically Signed By: ANTONELLA KOENIG, Zack Gardiner\.dea\Date and Time Signed: 01/07/24 16:13 EDT Operative Reporton Operative Report [id number] [facility] Pathology Noteon 12-27-2023 Pathology Note [id number]#[id number] [facility] Varun 12-25-2023 L Specimen: [id number] eceived: 12/25/23 Status: LAITH June Num: [id number] Spec Type: Surgical Subm Dr: Zack Berman MD FACS Tissues: A Lipoma (LT BACK) Procedures: HE, Gross/Micro L3 Age/ Patient Sex Location Account Attending Physician Nica Estrada 38/F LABELL [id number] Zack Berman MD FACS SPEC NUM: [id number] RECD: 12/25/23 STATUS: LAITH JUNE NUM: [id number] JAVI: 12/25/23-[address]: Zack Berman MD FACS ENTERED: 12/25/[address] [facility] DR: Yuriy Gonzalez SPEC TYPE: Surgical DEPT: [...] no obvious areas of hemorrhage or necrosis. Export Coordinator sections are submitted A1. RG Clinical history: Lipoma, path pending CPT Codes 01347 -------- -------- Specimen: [id number] Received: 12/25/23 [facility] Num: [id number] Spec Type: Surgical Subm Dr: Zack Berman MD FACS Tissues: A Lipoma (LT BACK) Procedures: ZAINA, Gross/Micro L3 -------- Patient: SeanNica Douglas [id number] (Continued) -------- Signed (signature on file) Darren Dias MD 12/26/23 1322 Normal [facility] Consent for Procedure/Surger yon 11-12-2023 Consent for Procedure/Surgery [id number]#[id number] Normal [facility] Consent for Procedure/Surgery [id number] Normal [facility] Ambulatory Visit Summaryon 0 11-11-2023 [...] for choosing us for your care. Normal [facility] Physician Referralon 024 Physician Referral [id number]#[id number] Normal [facility] PREG HCG QUALon 04-20-2022 , QUAL Negative Normal NEGATIVE [facility] Comment on above: Performed By: #### P REG #### [facility] [address] [place] [address] Dr. Refugio Apple CNOVon 04-12-2022 CNOV Office Visit (PLASMN ) NICA ESTRADA ([id number]) 1985 F Date Time Provider Department 04/12/22 [...] times d (more content not included)... Normal [facility] PREG HCG QUALon 04-06-2022 , QUAL Negative Normal NEGATIVE [facility] Comment on above: Performed By: #### P REG #### [facility] [address] [place] [address] Dr. Refugio Apple CHEMISTRYOrdered By: SYSTEM SYSTEM [...] CNOV Office Visit (GENSSM ) NICA ESTRADA ([id number]) 1985 F Date Time Provider Department 11/10/21 [...] mcg, Iron 45-60 mg and calcium citrate 8307-8074 mg/day PHYSICAL EXAMINATION: Weight loss: BMI 23.2 [...] Ena Mcginnis MD Referring Provider: ENA MCGINNIS [[id number]] Allergies As of Date: 11/10/2021 Noted Allergy [...] JUANITA (a (more content not included)... Normal [facility] MRI CSPINE WO CONon 11-10-19 MRI [facility] [...] ALONZO Date: 2021-11-10 14:28 [facility] (MGI847 ) NICA ESTRADA ([id number]) 1985 F Date Time Provider Department 06/15/21 11:30 AM ENA MCGINNIS [id number] During your visit today, we recorded the following information about you: Temperature Blood pressure Weight Height 97.4 degrees 133/89 61.2 kg 1.524 m Emilysalena Gallagher Fran 06/15/2021 11:41 AM Signed What [...] call directly to schedule upper endoscopy at [phone]. Please leave a message if you receive [...] is especially important if you have had edgga-uyreacvng-kffhe surgery in the past. How is an [...] minutes for (more content not included)... Normal [facility] HISTORY PHYSICALon HISTORY PHYSICAL HNO ID: [id number] Author: Kalpana Otero MD Service: General Surgery [...] NURSING PROGon 12-16-2020 NURSING PROG HNO ID: [id number] Author: Yashira LauRn) DEEPTHI [place] Service: Nursing [...] PT EDon 12-16-2020 PT ED HNO ID: [id number] Author: Manohar (Rn) DEEPTHI Conn Service: Nursing Author Type: Registered Nurse Type: Patient Education Filed: 12/16/2020 11:03 AM Note Text: PATIENT EDUCATION TOPIC: PROCEDURE / SURGERY: Post Procedure Teaching: PATIENT NAME: Nica Estrada PATIENT LOCATION: ENDO POOL/FV ENDO POOL READINESS TO LEARN [...] NURSING PROGon 10-25-2020 NURSING PROG HNO ID: [id number] Author: Diego Abad RN Service: ? Author Type: Registered Nurse Type: Nursing Progress Note Filed: 10/25/2020 2:09 AM Note Text: Nursing Progress Note Patient Name: Nica Estrada Patient Location: [facility]/ Daily Note: 1999: Assessment complete see NPR. [...] CAREon 10-25-2020 PLAN OF CARE HNO ID: [id number] Author: Davina Bonilla ([employer]) Service: Pharmacy Author Type: ? Type: Plan [...] to the patient's discharge medications. Davina Bonilla ([employer]) DCT Contact Info: [id number] [facility] PLAN OF CARE HNO ID: [id number] Author: Davina Bonilla ([employer]) Service: Pharmacy Author Type: ? 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 Patient to use [facility] Bedside Delivery - YES Insurance Information as follows: 2. Insurance card on file - YES 3. Credit card for payment - N/A [facility] PLAN OF CARE HNO ID: [id number] Author: Davina Bonilla ([employer]) Service: Pharmacy Author Type: ? Type: Plan [...] or your Primary Care Provider. Davina Bonilla (Tare Weigher) PAGER: [phone] October 25, 2020 2:56 PM [facility] PROGRESSon 10-25-2020 PROGRESS HNO ID: [id number] Author: Presley Torrez Service: General Surgery Author [...] 7:02 AM [facility] PROGRESS HNO ID: [id number] Author: Juliet Lilly Service: General Surgery Author [...] PT EDon 10-25-2020 PT ED HNO ID: [id number] Author: Geoff Hector Service: Nutrition Therapy Author Type: Medical Staffing Coordinator Type: Patient Education Filed: 10/25/2020 12:04 PM [...] October 25, 2020 TIME: 12:04 PM PAGER: [phone] [facility] ANES POSTPROC EVALon 021 ANES POSTPROC EVAL HNO ID: [id number] Author: Brandon Stoddard Service: Anesthesiology Author Type: Anesthesiologist Type: Anesthesia Postprocedure Evaluation Filed: 10/24/2020 4:58 PM Note Text: POST ANESTHESIA EVALUATION NOTE : 1985 Procedure Summary Date: 10/24/20 Room / Location: OR05 / [facility] OR Anesthesia Start: 1402 Anesthesia Stop: 1642 Procedure: LAPAROSCOPIC GASTRIC RESTRICTIVE SURG W/ BYPASS AND TREVOR-EN-Y Morbid obesity (HCC) (Morbid obesity (HCC) [E66.01]) Surgeons: nEa Mcginnis Responsible Provider: Brandon Stoddard Anesthesia Type: [...] October 24, 2020 TIME: 4:58 PM CSN: [id number] [facility] ANES PRE-OPon 10-24-2020 ANES PRE-OP HNO ID: [id number] Author: Colin Archer Service: Anesthesiology Author Type: [...] obtained within 48 hours of Surgery/Procedure. SIGNATURE: Colni Archer MD PATIENT NAME: Nica Estrada DATE: October 24, 2020 TIME: 1:18 PM CSN: [id number] [facility] NURSING PROGon 10-24-2020 NURSING PROG HNO ID: [id number] Author: Sridevi LauRn) DEEPTHI [place] Service: Nursing Author Type: Registered Nurse Type: Nursing Progress Note Filed: 10/24/2020 6:56 PM Note Text: Nursing Progress Note Patient Name: Nica Estrada Patient Location: [place] [id number] Transfer Note: Patient transferred into room/unit PK325 in stable condition. Actions taken: No futher actions taken at this time. at bedside. Will continue to monitor and check with patient. This note was completed by: Sridevi Triana RN [facility] NURSING PROG HNO ID: [id number] Author: Gege (Rn) DEEPTHI Kenney Service: Nursing Author Type: Registered Nurse Type: Nursing Progress Note Filed: 10/24/2020 1:38 PM Note Text: PATIENT EDUCATION TOPIC: PROCEDURE / SURGERY: Pre-op Teaching: Protocols PATIENT NAME: Nica Estrada PATIENT LOCATION: [facility] OR POOL/[facility] OR POOL [...] OPERATIVE NOon 10-24-2020 OPERATIVE NO HNO ID: [id number] Author: Ena Mcginnis Service: General Surgery Author Type: Physician Type: Operative Report Filed: 10/26/2020 11:07 AM Note Text: [facility] - Operative Report NICA ESTRADA : 1985 AGE: 35. SEX: F PATIENT TYPE: I HOSP SVC: GENS LOCATION: [facility] ATTENDING PHYSICIAN: Ena Mcginnis MD CSN NUMBER: [id number] DATE OF SURGERY/PROCEDURE: 10/24/2020 INCISION/PROCEDURE START TIME: 2:28 PM INCISION CLOSE/PROCEDURE END TIME: 4:31 PM PREOPERATIVE DIAGNOSIS: Morbid obesity, BMI of 42. POSTOPERATIVE DIAGNOSIS: 1. Morbid obesity. 2. Hiatal hernia. SURGEON: Ena Mcginnis MD HOUSE CALLS NURSE: Presley Torrez MD. SURGERY/PROCEDURE: 1. Laparoscopic repair [...] performed in the retroesophageal window and a [place] drain was passed. It was used to retract the esophagus. The posterior cruroplasty was completed using 1 cyfwbs-sb-sxgdx stitch using silk to tighten the sharri. [...] assisted in the absence of qualified surgical dental assistant help. He created the pouch and created the jejunojejunostomy. Ena Mcginnis MD TA:[id number] /[id number] Normal [facility] Confirm Blood Typeon 021 ABO/RH(D) Positive Normal [facility] Comment on above: Performed By: #### C ONABO ####[facility] [place] [id number] HISTORY PHYSICALon HISTORY PHYSICAL HNO ID: [id number] Author: Amanda Shane (Pa) Service: ? Author Type: Physician Boat Engines Installer Type: HANDP Filed: 10/17/2020 2:58 PM Note Text: HISTORY AND PHYSICAL EXAMINATION SERVICE DATE: 10/17/2020 SERVICE TIME: 2:42 PM PRIMARY CARE PHYSICIAN: Jose Castano III, REASON FOR VISIT: iNca Estrada is a 35 year old female [...] fevers. Neuro: No history of TIA's, stroke, TRAFFIC WAREHOUSE SUPERVISOR tumor, impaired sensorium, hemiplegia, paraplegia or quadraplegia. No neurological symptoms or problems. Respiratory: asthma, uses rescue about once every few weeks; no current resp sx. Had acute bronchitis last Fall, flared asthma for a while but is better now. Has environmental allergies Cardiovascular: No history of HTN requiring medication, no history of angina, CHF, MO, cardiac surgery or stents. Denies rest pain, gangrene or revascularization/amputation for PVD. No history of cardiovascular symptoms or problems. GI: Positive for GERD, no other GI sx. : No history of dysuria, frequency or incontinence,, stones or chronic kidney disease REGISTERED DENTAL ASSISTANT: Negative for abnormal vaginal bleeding, abnormal vaginal [...] 2020 TIME: 2:42 PM PAGER/CONTACT #: Normal [facility] Type and SCR (30D)on 021 ABO/RH(D) Positive Normal [facility] Comment on above: Performed By: #### T [id number] ####[facility] [place], [place] [phone] HOSPon 09-27-2020 [facility] Patient:Nica Estrada MRN: Height:5' 0 (1.524 m) [...] 44.1 % 10/17/2020 46.0 36.0 Progress Notes ([facility]): Marcella Saldana RN 10/13/2020 2:32 PM [...] Strength Tylenol. Marcella Saldana RN Progress Notes ([facility]): Ena Mcginnis MD 10/13/2020 5:31 PM Signed SURGERY PREOPERATIVE VISIT NOTE Name: Nica Estrada Medical Record: [id number] Encounter No.: [id number] Nica Estrada is a 35 year old [...] on recommendations of the Governor of the [facility]. Although we will perform appropriate precautions [...] patient. Ena Mcginnis MD Previous Version Normal [facility] HEPATITIS B SURFACE AB IMMUN ITYAna 08-11-2020 HEPATITIS B SURFACE AB IMMUNITY, QN >1000 Normal > OR = 10 [facility] Comment on above: Result Comment: Patient has immunity to hepatitis B virus. For additional information, please refer to http://education.SCHAD/faq/FZL677 (This link is being provided for informational/ educational purposes only). Performed By: #### [id number] #### [employer] [facility]-[address], [address] [place] [id number] Dental Laboratory Technician: Sixto Chandler MD Vital Signs Date Time Vital Sign Value Performing Clinician Facility 01-21-2025 08:26-0400 Body height 154.9 cm Arminda PRICE Work Phone: [facility] 01-21-2025 08:26-0400 Body mass index (BMI) [Ratio] 32.69 kg/m2 Arminda PRICE Work Phone: [facility] 01-21-2025 08:26-0400 Body weight 78.47 kg Arminda PRICE Work Phone: [facility] 01-21-2025 08:26-0400 Diastolic blood pressure 82 mm[Hg] Arminda PRICE Work Phone: [facility] 01-21-2025 08:26-0400 Heart rate 75 /min Arminda PRICE Work Phone: [facility] 01-21-2025 08:26-0400 Respiratory rate 16 /min Arminda PRICE Work Phone: [facility] 01-21-2025 08:26-0400 SaO2% (BldA) [Mass fraction] 97 % Arminda PRICE Work Phone: [facility] 01-21-2025 08:26-0400 Systolic blood pressure 122 mm[Hg] Arminda PRICE Work Phone: [facility] 01-04-2025 14:48-0400 Body height 157.5 cm Arminda Helton PA Work Phone: [facility] 01-04-2025 14:48-0400 Body mass index (BMI) [Ratio] 30.36 kg/m2 Armindajesus Helton PA Work Phone: [facility] 01-04-2025 14:48-0400 Body weight 75.3 kg Armindajesus Helton PA Work Phone: [facility] 01-04-2025 14:48-0400 Diastolic blood pressure 88 mm[Hg] Arminda Helton PA Work Phone: [facility] 01-04-2025 14:48-0400 Heart rate 84 /min Armindajesus Helton PA Work Phone: [facility] 01-04-2025 14:48-0400 Respiratory rate 16 /min Arminda Helton PA Work Phone: [facility] 01-04-2025 14:48-0400 SaO2% (BldA) [Mass fraction] 99 % Arminda Helton PA Work Phone: [facility] 01-04-2025 14:48-0400 Systolic blood pressure 140 mm[Hg] Armindajesus Helton PA Work Phone: [facility] 09-21-2024 10:03-0500 Body mass index (BMI) [Ratio] 30.8 kg/m2 Godwin Keyes [employer] Work Phone: [facility] 09-21-2024 10:03-0500 Body weight 73.94 kg Godwin Keyes [employer] Work Phone: [facility] 09-21-2024 10:03-0500 Diastolic blood pressure 93 mm[Hg] Godwin Keyes [employer] Work Phone: [facility] 09-21-2024 10:03-0500 Heart rate 86 /min Godwin Keyes [employer] Work Phone: [facility] 09-21-2024 10:03-0500 Systolic blood pressure 142 mm[Hg] Godwin Keyes [employer] Work Phone: [facility] 06-01-2024 09:53-0400 Body height 154.9 cm Godwin Keyes [employer] Work Phone: [facility] 06-01-2024 09:53-0400 Body mass index (BMI) [Ratio] 29.48 kg/m2 Godwin Keyes [employer] Work Phone: [facility] 06-01-2024 09:53-0400 Body weight 70.76 kg Godwin Keyes [employer] Work Phone: [facility] 06-01-2024 09:53-0400 Diastolic blood pressure 108 mm[Hg] Godwin Keyes [employer] Work Phone: [facility] 06-01-2024 09:53-0400 Heart rate 80 /min Godwin Keyes [employer] Work Phone: [facility] 06-01-2024 09:53-0400 Systolic blood pressure 146 mm[Hg] Godwin Keyes [employer] Work Phone: [facility] 10-16-2022 12:53-0500 Diastolic blood pressure 80 mm[Hg] Otis Marcin [facility] 10-16-2022 12:53-0500 Heart rate 55 /min Otis Marcin [facility] 10-16-2022 12:53-0500 Mean blood pressure 89 mm[Hg] Otis Marcin [facility] 10-16-2022 12:53-0500 Respiratory rate 18 /min Otis Marcin [facility] 10-16-2022 12:53-0500 Systolic blood pressure 108 mm[Hg] Otis Marcin [facility] 08-28-2022 08:52-0500 Heart rate 70 /min Otis Maricn [facility] 08-28-2022 08:52-0500 SaO2% (BldA) [Mass fraction] 100 % Otis Marcin [facility] 08-28-2022 08:52-0500 Respiratory rate 16 /min Otis Marcin [facility] 08-28-2022 08:52-0500 Diastolic blood pressure 80 mm[Hg] Otis Marcin [facility] 08-28-2022 08:52-0500 Mean blood pressure 93 mm[Hg] Otis Marcin [facility] 08-28-2022 08:52-0500 Systolic blood pressure 121 mm[Hg] Otis Marcin [facility] 08-28-2022 08:46-0500 Heart rate 70 /min Otis Marcin [facility] 08-28-2022 08:46-0500 SaO2% (BldA) [Mass fraction] 100 % Otis Marcin [facility] 08-28-2022 08:46-0500 Body temperature 97.52 [degF] Otis Marcin [facility] 08-28-2022 08:46-0500 Diastolic blood pressure 69 mm[Hg] Otis Marcin [facility] 08-28-2022 08:46-0500 Mean blood pressure 80 mm[Hg] Otis Marcin [facility] 08-28-2022 08:46-0500 Systolic blood pressure 104 mm[Hg] Otis Marcin [facility] 08-28-2022 08:46-0500 Respiratory rate 16 /min Otis Marcin [facility] 08-28-2022 08:41-0500 Diastolic blood pressure 64 mm[Hg] Otis Marcin [facility] 08-28-2022 08:41-0500 Systolic blood pressure 102 mm[Hg] Otis Marcin [facility] 08-28-2022 08:40-0500 Heart rate 71 /min Otis Marcin [facility] 08-28-2022 08:40-0500 Respiratory rate 12 /min Otis Marcin [facility] 08-28-2022 08:40-0500 SaO2% (BldA) [Mass fraction] 100 % Otis Marcin [facility] 08-28-2022 08:35-0500 Respiratory rate 12 /min Otis Marcin [facility] 08-28-2022 08:30-0500 Respiratory rate 12 /min Otis Marcin [facility] 08-28-2022 07:17-0500 Mean blood pressure 78 mm[Hg] Otis Marcin [facility] 08-28-2022 07:17-0500 Respiratory rate 16 /min Otis Marcin [facility] 08-28-2022 07:17-0500 Body temperature 98.24 [degF] Otis Marcin [facility] 04-12-2022 14:47-0400 Body height 152.4 cm Lazara [...] Diastolic blood pressure 86 mm[Hg] Mixon SALAM [facility] 03-01-2022 14:59-0400 Heart rate 52 /min Mixon SALAM [facility] 03-01-2022 14:59-0400 Systolic blood pressure 130 mm[Hg] Mixon SALAM [facility] Encounters Encounter Date Encounter Type Care Provider Facility Start: 01-21-2025 End: 01-21-2025 Bamboo flowsheet Arminda PRICE Work Phone: [facility] Start: 01-21-2025 End: 01-21-2025 Bamboo flowsheet Arminda PRICE Work Phone: [facility] Start: 01-21-2025 End: 01-21-2025 Clinical Support Arminda PRICE Work Phone: [facility] Comment on above: Myalgia (Primary Dx) ; Neck pain; Cervical spondylosis; Trigger point of neck Start: 01-04-2025 End: 01-04-2025 ambulatory ARMINDA HELTON Not Available Start: 01-04-2025 End: 01-04-2025 Office outpatient visit 25 minutes Arminda PRICE Work Phone: [facility] Comment on above: Migraine without sta tus migrainosus, not intractable, unspecified migraine type (CMS/HCC) (Primary Dx); Myalgia; Cervical spondylosis; Fibromyalgia; Degeneration of intervertebral disc of lumbar region, unspecified whether pain present; Trigger point of neck; Neck pain Start: 01-04-2025 End: 01-04-2025 Bamboo flowsheet Arminda Helton PA Work Phone: [facility] [place] Start: 01-04-2025 End: 01-04-2025 Bamboo flowsheet Arminda Helton PA Work Phone: [facility] [place] Start: 10-19-2024 End: 10-19-2024 ambulatory Aaliyah Hampton MD Facility: [place] Start: 09-28-2024 End: 09-28-2024 ambulatory Aaliyah Hampton MD Facility: [place] Start: 09-21-2024 End: 09-21-2024 Bamboo nathanael Keyes [employer] [facility] [address] Start: 09-21-2024 End: 09-21-2024 Bamboo nathanael eKyes [employer] Work Phone[facility] [address] Start: 09-21-2024 End: 09-21-2024 Office outpatient visit 15 minutes Godwin Keyes [employer] [facility] [address] Comment on above: Migraine without sta tus migrainosus, not intractable, unspecified migraine type (CMS/HCC) (Primary Dx); Myalgia; Cervical spondylosis; Fibromyalgia; Degeneration of intervertebral disc of lumbar region, unspecified whether pain present Start: 09-21-2024 End: 09-21-2024 ambulatory GODWIN KEYES Not Available Start: 06-29-2024 End: 06-29-2024 ambulatory Aaliyah Hampton MD Facility: [place] Start: 06-01-2024 End: 06-01-2024 Jared Keyes [employer] [facility] Phone[facility] [place] [address] Start: 06-01-2024 End: 06-01-2024 Marcelleo nathanael Keyes [employer] Work Phone: [facility] [address] Start: 06-01-2024 End: 06-01-2024 ambulatory GODWIN KEYES Not Available Start: 06-01-2024 End: 06-01-2024 Office outpatient visit 15 minutes Godwin Keyes [employer] Work Phone: [facility] [address] Comment on above: Migraine without sta [...] End: 01-07-2024 Patient encounter procedure Zack BERMAN [facility] [place] Start: 01-06-2024 End: 01-06-2024 ambulatory Aaliyah Hampton MD Facility: [place] Start: 01-03-2024 ambulatory Zack BERMAN Facility:[facility] Start: 12-25-2023 End: 12-25-2023 ambulatory Zack Berman Facility:[facility] Start: 12-25-2023 End: 12-26-2023 ambulatory Zack BERMAN [facility] Work Phone: Start: 12-25-2023 End: 12-25-2023 Dean Berman Work Phone: [facility] [place] [facility] Start: 12-16-2023 End: 12-16-2023 ambulatory Aaliyah Hampton MD Facility: [place] Start: 12-09-2023 End: 12-09-2023 ambulatory Aaliyah Hampton MD Facility:[facility] [place] Start: 12-02-2023 End: 12-02-2023 ambulatory Aaliyah Hampton MD Facility:[facility] [place] Start: 11-11-2023 End: 11-12-2023 ambulatory Zack BERMAN Facility: [facility] Start: 11-11-2023 End: 11-26-2023 Pre-admission assessment Zack BERMAN [facility] Start: 11-04-2023 End: 11-04-2023 ambulatory Aaliyah Hampton MD Facility:[facility] [place] Start: 10-21-2023 ambulatory Zack BERMAN Facility: [facility] Start: 10-16-2022 End: 10-16-2022 Pain Management Otis Burch [facility] Start: 08-28-2022 End: 08-28-2022 Pain Management Otis Burch [facility] Start: 05-04-2022 End: 05-05-[address] DOCTOR [...] End: 03-01-2022 Patient encounter procedure Oral DIETZ [facility] Start: 11-10-2021 End: 11-11-2021 ambulatory PETEYFILI BURNETT Facility:[facility] Start: 05-24-2021 End: 06-28-[address] DOCTOR BARNETT Facility:[facility] Procedures Date Procedure Procedure Detail Performing Clinician Start: 01-21-2025 Injection single/ug designer trigger point 3/> muscles Arminda PRCIE Work Phone: Start: 12-25-2023 Excision of lipoma of back Zack BERMAN Start: 08-28-2022 Radiofrequency ablation of medial branch of lumbar nerve using fluoroscopic guidance Otis Burch Comment on above: L4/5 +L5/S1 40-50% relief Start: 10-17-2020 Antibody screen Comment on above: Performed By: #### [id number] ####[place] [id number] [place], [place] [phone] Start: 05-09-2020 Adult depression screening assessment Lazara Woods MD Work Phone: Start: 04-18-2020 Colonoscopy Oral DIETZ Start: 04-18-2020 Esophagogastroduodenoscopy Oral DIETZ section Oral DIETZ section Zack Albarado Cholecystectomy Oral DIETZ Fasciotomy of foot Zack HOFFMAN Trevor-en-Y gastrojejunostomy Zack BERMAN Plan of Treatment Date Care Activity Detail Author Start: 04-12-2025 End: 04-12-2025 Patient encounter procedure 04/12/2025 9:40 AM EDT Office Visit [facility] [address] [place] [phone] Arminda Helton PA [address] [place] [address] [facility] Start: 03-25-2025 End: 03-25-2025 Patient encounter procedure 03/25/2025 9:00 AM EDT Office Visit [facility] [address] [place] [phone] Christianne Jiang NP [address] [place], [place] [facility] Start: 01-21-2025 End: 01-21-2025 Clinical Support 01/21/2025 8:20 AM EDT Clinical Support [facility] [address] [place] [phone] Arminda Helton PA [address] [place] [address] [facility] Start: 01-04-2025 End: 01-04-2025 Patient encounter procedure 01/04/2025 2:40 PM EDT Office Visit [facility] [address] [place] [phone] Lazara Wagner NP [address] [place] [id number] [facility] [place] [address] Start: 01-04-2025 End: 01-04-2026 Inject Trigger Point, 1 or 2 Inject Trigger Point, 1 or 2 Procedures Routine Myalgia Trigger point of neck Neck pain Expected: 01/04/2025 (Approximate), Expires: 01/04/2026 [facility] Work Phone: Comment on above: Expected: 01/04/2025 (Approximate), Expires: 01/04/2026 Start: 09-21-2024 End: 09-21-2024 Patient encounter procedure [facility] [place] [address] Comment on above: Arrived Start: 05-17-2024 Influenza vaccination Influenza Vacc ine (#1) [facility] Start: 2023 Screening for malign ant neoplasm of breast Mammogram [facility] Start: 05-17-2022 Influenza vaccination INFLUENZA (#1) [facility] Start: 2013 Screening for malign ant neoplasm of cervix [facility] Start: 02-22-2004 PAP TESTING PAP TESTING [facility] Start: 02-22-2004 Screening for malign ant neoplasm of cervix Pap Smear [facility] Start: 2002 Urine microalbumin profile DTAP,TDAP,TD (1 - Tdap) [facility] Start: 2001 ANNUAL PCP TEAM THERMAL INTELLIGENCE ANALYST 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 VISIT ANNUAL PCP TEAM CHRONIC DISEASE VISIT [facility] Start: 2001 BP CONTROLLED (<130/80) BP CONTROLLE D (<130/80) [facility] Start: 2001 HEPATITIS C SCREENING HEPATITIS C SC REENING [facility] Start: 2001 HIV SCREENING [facility]CRE[facility] Start: 2001 SPIROMETRY SPIROMETRY [facility] Start: 1989 PNEUMOCOCCAL (1 - PCV) PNEUMOCOCCAL (1 - PCV) [facility] Immunizations Immunization Date Immunization Notes Care Provider Fa [facility] 07-14-2024 influenza virus vaccine, unspecified formulation Godwin Keyes NP Work Phone: [facility] 11-11-2020 SARS-CoV-2 (COVID-19 ) mRNA-1273 vaccine Zack BERMAN [facility] [place] Comment on above: Result Comment: 2023: TPV20 09-28-2020 COVID-19 vaccine, full dose (MODERNA) Lazara Woods MD Work Phone: [facility] Comment on above: Result Comment: 2023: TPV20 07-01-2020 influenza, injectable, quadrivalent, preservative free Lazara Woods MD Work Phone: [facility] 07-01-2020 influenza virus vaccine, unspecified formulation Godwin Keyes NP Work Phone: [facility] 06-17-2020 influenza virus vaccine, unspecified formulation Lazara Woods MD Work Phone: [facility] NEGATED: Highlighted row has not occurred!11-11-2023 influenza virus vaccine, unspecified formulation Zack ANTONELLA [facility] [place] Payers Date Payer Category Payer Self-pay [id number] 2022 Medicaid [id number] 2022 Private Health Insurance [id number] 2022 Unknown [id number]. [id number]. [id number] 2022 Unknown [id number] 2018 Medicaid UHC MEDICAID UHC COMMUNITY PLAN MEDICAID [id number] 2018-Present [phone] [address] [place] [address] Medicaid [id number]. [id number] 1983 Unknown [id number] 2.16.840.1.198050.3.579.2. 593 1983 Unknown [id number] 2.16.840.1.993916.3.579.2. 593 1983 Unknown [id number] 2.16.840.1.977347.3.579.2. 593 1983 Unknown [id number] 2.16.840.1.432861.3.579.2. 593 1983 Unknown [id number] 2.840.1.322215.3.579.2. 593 1983 Unknown [id number] 2.840.1.351472.3.579.2. 593 1983 Unknown [id number] 2.840.1.837565.3.579.2. 59 1983 Unknown [id number] 2.840.1.624918.3.579.2. 72 1983 Unknown [id number] 2.840.1.151361.3.579.2. 72 1983 Unknown [id number] 2.0.1.914526.3.579.2. 1983 Unknown [id number] 2.0.1.584340.3.579.2. 1983 Unknown [id number] 2.0.1.574816.3.579.2. 1983 Unknown [id number] 2.0.1.458470.3.579.2. 1983 Unknown [id number] 2..1.970433.3.579.2. 1983 Unknown [id number] 20.1.042719.3.579.2. 1983 Unknown [id number] 2.0.1.622292.3.579.2. 1983 Unknown [id number] 2.0.1.203000.3.579.2. 1983 Unknown [id number] 2.0.1.802586.3.579.2. 1983 Unknown [id number] 2.840.1.414536.3.579.2. 1983 Unknown [id number] 2.840.1.670454.3.579.2. 1259 1983 Unknown [id number] 2.16.840.1.275645.3.579.2. 9 1983 Unknown [id number] 2.16.840.1.181564.3.579.2. 1258 1983 Unknown [id number] 2.16.840.1.928474.3.579.2. 1258 1983 Unknown [id number] 2.16.840.1.055443.3.579.2. 1258 1983 Unknown [id number] 2.16.840.1.094712.3.579.2. 1259 1959 Unknown [id number] Unknown [id number] 2.16.840.1.234904.3.579.2. 531 Social History Date Type Detail Facility Start: 03-01-2022 End: 11-11-2023 Tobacco smoking status Never smoked tobacco (finding) [facility] Tobacco smoking status Never [facility] Start: 05-31-2024 End: 01-21-2025 Sex Assigned At Female [facility] Start: 06-27-2017 End: 02-06-2024 Tobacco use and exposure Smokeless tobacco non-user [facility] Start: 04-12-2022 End: 01-21-2025 Alcohol intake Current drinker of alcohol (finding) [facility] Start: 04-12-2022 End: 01-21-2025 Alcohol intake [facility] Start: 01-05-2020 History SDOH Alcohol Frequency 3 [facility] Start: 01-05-2020 History SDOH Alcohol Std Drinks 1 [facility] Start: 10-17-2020 History SDOH Alcohol Comment once a month, 1 drink [facility] Start: 1985 Sex Assigned At Not on file [facility] Start: 04-01-2022 End: 04-11-2022 Exposure to SARS-CoV-2 (event) Not sure [facility] Start: 1985 Sex Assigned At Female F [facility] Start: 02-06-2024 Tobacco smoking stat NHIS Smokes tobacco daily [facility] History of [...] Assessment Result Facility 10-16-2022 Functional Status N/A [facility] 08-28-2022 Functional Status N/A [facility] Clinical Notes 05-04-2020 to 01-21-2025 DEE Rosales - 01/21/2025 8:20 AM DEE Juarez - 01/04/2025 2:40 PM Reuben Keyes NP - 09/21/2024 10:00 AM Buddy Keyes NP - 06/01/2024 9:40 AM EDT Note Date & Type Note Facility 01-21-2025 History of Present illness Narrative Associated Order(s): Trigger Point Injection: right cervical paraspinals, left cervical paraspinals, right upper trapezius, left upper trapezius Post-Procedure Diagnose(s): Myalgia; Neck pain; Cervical spondylosis; Trigger point of neck Images from the original note were not included. Patient ID: Nica Estrada is a 39 y.o. female. Trigger Point Injection: right cervical paraspinals, left cervical paraspinals, right upper trapezius, left upper trapezius on 01/21/2025 8:52 AM Indications: pain, muscle spasm and myalgia Details: 25 G needle Medications: 40 mg methylPREDNISolone Na Suc (PF) 40 MG; 3 mL bupivacaine 0.25 % Outcome: tolerated well, no immediate complications Procedure, treatment alternatives, risks and benefits explained, specific risks discussed. Consent was given by the patient. BP 122/82 Heart Rate 75 Weight 173 lb Height 5' 1 Resp 16 SpO2 97 % Patient is here today for trigger injection. She has had injections in the past and had benefit. Her pain is located in neck and radiates in to shoulders. She reports her right side at this time is a little worse than the left. Pain today is 7/10 During consent for the procedure, the patient denies cow milk allergy. The anesthetic used during the trigger injection was surface anesthesia. During the trigger point injection the patient was placed in a sitting position. Patient has consented after being explained the risks, complications, and benefits; including pneumothorax for the trigger point in the upper quarters and in the interscapular region. This was done using sterile technique and surface anesthetic. The patient tolerated the procedure well. Arminda Helton PA-C documented in this encounter [facility] 01-04-2025 History of Present illness Narrative Images from the original note were not included. No chief complaint on file. 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 Respiratory: Negative for cough, shortness of breath and wheezing. Cardiovascular: Negative for chest pain, palpitations and leg swelling. Gastrointestinal: Negative for abdominal pain, constipation, diarrhea and nausea. Musculoskeletal: Positive for arthralgias, back pain, myalgias and neck pain. Negative for gait problem. Neurological: Positive for headaches. Negative for dizziness, tremors and numbness. Psychiatric/Behavioral: The patient is nervous/anxious. Past Medical History: Diagnosis Date Acid reflux [...] Imitrex [sumatriptan], Wound dressing adhesive, and Latex There were no vitals filed for this visit. There is no height or weight on file to calculate BMI. Neurologic exam: Mental status: Well nourished, well [...] , wrist extensors , wrist flexor , industrial order clerk strength 5/5. LUE Strength deltoid , biceps , triceps , wrist extensors , wrist flexor , industrial order clerk strength 5/5. RLE Strength illopsoas, quadriceps, tibialis [...] LLE knee reflex 2+. Rodriguez's Sign negative. Gait: Normal Heart: Regular rate and rhythm Neck: TTP of cervical paraspinal muscles and trapezius muscles Review and summary of old records: LABS [...] headaches are lasting less than 2 hours. She has had some increase in headaches due to increased neck pain and anxiety. PLAN: - Continue Nurtec 75 mg ODT to as needed. Tolerating without side effects. - Will repeat trigger injections - May consider Ajovy in the future [...] of the greater and lesser occipital nerves). Stable. PLAN: - Could consider right ONB in the future as indicated. Myalgia The patient does have complaints of myalgia which is worse in the posterior neck and trapezius muscles. Possibly also part of her fibromyalgia though degenerative cervical changes are likely contributing. CK, JUANITA, myoglobin, and MG all WNL. Previous trigger injections have been beneficial. As she has had an increase in neck pain and headaches, will repeat trigger injections PLAN: - As patient has had increase in neck pain and myalgias despite conservative treatments, will repeat trigger injections. She has had greater than 50% improvement in symptoms in the past with trigger injections. This will consist of about 4-6 injections in the cervical paraspinal muscles and trapezius bilaterally with solumedrol and marcaine. - Currently on tizanidine by another provider. Cervical spondylosis Cervical MRI 11/10/2021 with degenerative changes at C5-C6 and C6-C7 with moderate neural foraminal stenosis at C6-C7 on the left. No weakness or reflex changes on clinical exam. She has had some increase in neck pain. PLAN: - Continue follow up with pain [...] with pain management (Carlos) Follow up in 2-3 months or sooner if symptoms worsen, fail to improve, or should a new neurological concern arise. Pt has been fully educated on their diagnosis, treatment options, follow up plan, and return instructions documented in this encounter [facility] 09-21-2024 History of Present illness Narrative Images [...] Depression (CMS/HCC) Depression with anxiety Fibromyalgia Hypertension ([facility]/HCC) Migraine (CMS/HCC) PTSD (post-traumatic stress disorder) (CMS/HCC) [...] , wrist extensors , wrist flexor , industrial order clerk strength 5/5. LUE Strength deltoid , biceps , triceps , wrist extensors , wrist flexor , industrial order clerk strength 5/5. RLE Strength illopsoas, quadriceps, tibialis [...] knee reflex 2+. Rodriguez's Sign negative. Coordination: Wjqadu-vz-plzw testing is normal Rapid alternating movements are [...] - Continue follow up with pain mangement ([facility]) - Medications as above Fibromyalgia History of [...] PLAN: - Continue following with pain management ([facility]) Follow up in 3-4 months or sooner if symptoms worsen, fail to improve, or should a new neurological concern arise. Pt has been fully educated on their diagnosis, treatment options, follow up plan, and return instructions documented in this encounter [facility] 06-01-2024 History of Present illness Narrative Images from the original note were not included. Chief Complaint Patient presents with Migraine Neck Pain Back Pain Subjective Nicasavana Estrada, 39 y.o., female Patient is here [...] hiatal hernia repair HYSTERECTOMY 2005 KNEE SURGERY 2012 ORTHOPEDIC SURGERY 05/2006 Family History Problem Relation [...] , wrist extensors , wrist flexor , industrial order clerk strength 5/5. LUE Strength deltoid , biceps , triceps , wrist extensors , wrist flexor , industrial order clerk strength 5/5. RLE Strength illopsoas, quadriceps, tibialis [...] knee reflex 2+. Rodriguez's Sign negative. Coordination: Fwooon-xr-jhai testing is normal Rapid alternating movements are [...] PLAN: - Continue following with pain management ([facility]) Follow up in 3-4 months or sooner if symptoms worsen, fail to improve, or should a new neurological concern arise. Pt has been fully educated on their diagnosis, treatment options, follow up plan, and return instructions documented in this encounter [facility] 12-27-2023 Hospital Discharge instructions Follow Up Care 12/27/2023 13:04:11 With:ANTONELLA KOENIG, Zack Gardiner, MASTER Address: [address] [place] [phone]- When: only if needed [facility] 11-11-2023 Note Chief Complaint consultation for skin [...] Brother. Colon ca (more content not included)... [facility] Comment on above: Result Comment: [...] concerns. Patient agrees with plan of care. [facility]07-28-2022 NoteHNO ID: [id number] Author: ST Rick Service: ? Author Type: Patient'S Librarian Type: Progress Notes Filed: 04/12/2022 3:50 PM Note Text: DATE OF PHOTOS: 04/12/2022 Body Part: Breasts, Abdomen, Leg(s) and Arms ST Rick April 12, 2022 3:49 [facility]07-28-2022 History of Present illness Narrative* ST Rick - 04/12/2022 3:49 PM EDT DATE OF PHOTOS: 04/12/2022 Body Part: Breasts, Abdomen, Leg(s) and Arms TomekaST Alice April 12, 2022 3:49 PM [facility] NoteHNO ID: [id number] Author: Lazara Woods MD Service: ? Author [...] this visit. ALLERGIES A (more content not included)...[facility]07-27[facility]2022 History of Present illness Narrative* Lazara Woods [...] Past Histories independently gathered by the clinical product support technician and the remaining scribed note [...] Level 04/25/21 * Vitamin B12 Level 04/25/21 [facility]02-25-2022 NoteHNO ID: [id number] Author: Ena Mcginnis MD Service: ? Author [...] mcg, Iron 45-60 mg and calcium citrate 3046-6207 mg/day PHYSICAL EXAMINATION: Weight loss: BMI 23.2 [...] ? Doing great ? EGD Ena Mcginnis [facility]09-30-2021 NoteHNO ID: [id number] Author: Ena Mcginnis MD Service: ? Author [...] mcg, Iron 45-60 mg and calcium citrate 8626-0034 mg/day ? COMPLETE REVIEW OF SYSTEMS Constitutional--Negative [...] which included preparing to see the patient, xzym-nr-ngny patient care and completing clinical documentation.[facility]08-10-2021 Evaluation + Plan note Future Scheduled Tests Laboratory* Copper Level 04/25/21 * Zinc Level 04/25/21 * Vitamin A Level 04/25/21 * Vitamin B1 04/25/21 * Vitamin B6 Lvl 04/25/21 * Vitamin D 25 Hydroxy 04/25/21 * Ferritin 04/25/21 * Folate Level 04/25/21 * Iron Level 04/25/21 * Magnesium Level 04/25/21 * Vitamin B12 Level 04/25/21 [facility] [id number] History of Past illness Narrative* Problem Noted Date Resolved Date Morbid obesity 05/04/2020 01/23/2021 documented as of this encounter (statuses as of 04/12/2022) [facility] History of Past illness Narrative* Problem Noted Date Resolved Date Morbid obesity 05/04/2020 01/23/2021 documented as of this encounter (statuses as of 04/12/2022) [facility] Future Appointments Appointment Date:09/24/2022 10:30:00 AM Scheduled Provider:Sridevi Goetz PA-C Location:[facility] Appointment Type:[facility] - [facility]* Diagnosis Hx of bariatric surgery- Primary Bariatric surgery status Excess skin documented in this encounter [facility] noteNo assessment information availableMercy [facility] Work Phone: Evaluation note* Diagnosis Migraine [...] lumbosacral intervertebral disc [facility] Diagnosis Migraine without status migrainosus, not intractable, unspecified migraine type (CMS/HCC)- Primary Myalgia Unspecified myalgia and myositis Cervical spondylosis Cervical spondylosis without myelopathy Fibromyalgia Unspecified myalgia and myositis Degeneration of intervertebral disc of lumbar region, unspecified whether pain present [facility] Diagnosis Migraine without status migrainosus, not intractable, unspecified migraine type (CMS/HCC)- Primary Myalgia Unspecified myalgia and myositis Cervical spondylosis Cervical spondylosis without myelopathy Fibromyalgia Unspecified myalgia and myositis Degeneration of intervertebral disc of lumbar region, unspecified whether pain present Trigger point of neck Neck pain Cervicalgia [facility]* Diagnosis Myalgia- Primary Unspecified myalgia and myositis Neck pain Cervicalgia Cervical spondylosis Cervical spondylosis without myelopathy Trigger point of neck documented in this encounter [facility] Narrative No data available for this section [facility] Hospital Discharge instructions No data available for this section [facility] Progress note No data available for this section [facility] Summary Purpose Family [...] FoundDocuments on File Type Date Recorded Patient Export Coordinator Expl anation Advance Directive(s) 12/16/2020 8:43 AM Advance Directive(s) 12/15/2020 1:00 PM Advance Directive(s) 10/24/2020 10:04 AM Advance Directive(s) 10/04/2020 4:19 PM Advance Directive Response Recorded Date/ Time Advance Directives No April 30, 2018 4:07pm Hospital Course Note HNO ID: [id number] Author: Douglas Torrez Service: General Surgery Author [...] (more content not included)... Note HNO ID: [id number] Author: Devonte Zurita Service: Anesthesiology Author Type: Nurse Certified Maintenance Welder Type: Anesthesia Procedure Notes Filed: 10/24/2020 2:25 PM Note Text: ANESTHESIOLOGY PROCEDURE NOTE Airway General Information Procedure Start Time/Medication Administration: 10/24/2020 2:14 PM Patient location during procedure: OR Timeout Performed Pre-procedure: timeout performed Patient identity confirmed: arm band, care presentation team member and patient Staffing Anesthesiologist: Brandon Stoddard PICKED EDGE SEWING MACHINE OPERATOR: Pallavi Zurita Performed by: PICKED EDGE SEWING MACHINE OPERATOR Indications and Patient Condition Preoxygenated: yes Patient position: sniffing Manual In-Line Stabilization: No Difficult Mask: No Indications for airway management: anesthesia anesthesia circuit Method: asleep Cricoid Pressure: No Final Airway Details Final airway type: endotracheal airway Final Endotracheal Airway: ETT Cuffed: yes Successful intubation technique: direct laryngoscopy Endotracheal tube insertion site: oral Blade: Xiomara Blade size (more content not included)... Note HNO ID: [id number] Author: Devonte Zurita Service: Anesthesiology Author Type: Nurse Certified Maintenance Welder Type: Anesthesia Procedure Notes Filed: 10/24/2020 2:26 [...] October 24, 2020 TIME: 2:26 PM CSN: [id number] Note HNO ID: [id number] Author: Douglas Torrez Service: General Surgery Author Type: Physician Type: Brief Op Note Filed: 10/24/2020 4:36 PM Note Text: BRIEF OPERATIVE NOTE [facility] LOG ID: [id number] SURGERY/PROCEDURE DATE: 10/24/2020 INCISION/PROCEDURE START TIME: 2:28 PM INCISION CLOSE/PROCEDURE END TIME: 4:31 PM SURGEON(S) AND HOUSE CALLS NURSE(S): Surgeon(s) and Role: * Ena Mcginnis - Primary * Jarad Clarke (Res) DO Steven - Resident - Assisting * Presley Torrez - Resident - Assisting No Additional Staff PROCEDURES AND ANESTHESIA: Procedure(s) and Anesthesia Type: * LAPAROSCOPIC GASTRIC RESTRICTIVE SURG W/ BYPASS AND TREVOR-EN-Y Procedure Findings Note HNO ID: [id number] Author: Devonte Zurita Service: Anesthesiology Author Type: Nurse Certified Maintenance Welder Type: Anesthesia Procedure Notes Filed: 10/24/2020 2:25 PM Note Text: ANESTHESIOLOGY PROCEDURE NOTE Airway General Information Procedure Start Time/Medication Administration: 10/24/2020 2:14 PM Patient location during procedure: OR Timeout Performed Pre-procedure: timeout performed Patient identity confirmed: arm band, care presentation team member and patient Staffing Anesthesiologist: Brandon Stoddard PICKED EDGE SEWING MACHINE OPERATOR: Pallavi Zurita Performed by: SHAVON [...] (more content not included)... Note HNO ID: [id number] Author: Devonte Zurita Service: Anesthesiology Author Type: Nurse Certified Maintenance Welder Type: Anesthesia Procedure Notes Filed: 10/24/2020 2:26 [...] October 24, 2020 TIME: 2:26 PM CSN: [id number] Note HNO ID: [id number] Author: Douglas Torrez Service: General Surgery Author Type: Physician Type: Brief Op Note Filed: 10/24/2020 4:36 PM Note Text: BRIEF OPERATIVE NOTE [facility] LOG ID: [id number] SURGERY/PROCEDURE DATE: 10/24/2020 INCISION/PROCEDURE START TIME: 2:28 PM INCISION CLOSE/PROCEDURE END TIME: 4:31 PM SURGEON(S) AND HOUSE CALLS NURSE(S): Surgeon(s) and Role: * Ena Mcginnis - [...] DATE CREATED AUTHOR AUTHOR'S ORGANIZ ATION 10/18/2020 [facility] DATE CREATED AUTHOR AUTHOR'S ORGANIZ ATION 12/17/2020 [facility] DATE CREATED AUTHOR AUTHOR'S ORGANIZ ATION 04/16/2022 [facility] DATE CREATED AUTHOR AUTHOR'S ORGANIZ ATION 05/10/2022 [facility] DATE CREATED AUTHOR AUTHOR'S ORGANIZ ATION 12/26/2023 [facility] DATE CREATED AUTHOR AUTHOR'S ORGANIZ ATION 01/09/2024 [facility] DATE CREATED AUTHOR AUTHOR'S ORGANIZ ATION 10/23/2024 [facility] DATE CREATED AUTHOR AUTHOR'S ORGANIZ ATION 01/23/2025 [facility] Care Team (unrecognized sect ion and content) Adjunct Art History Instructor Relationship Specialty Start Date End Date Jose Castano III, DO [address] [facility] [address] [place] [address] PCP - General Family Practice 10/04/20 Adjunct Art History Instructor Relationship Specialty Start Date End Date Jose Castano III DO [address] [facility] [address] [place] [address] PCP - General Family Practice 10/04/20 Team Status: Inactive Member Role Status Dates Zack Berman MD FACS Attending Provider Active Start: December 25, 2023 End: December 25, 2023 Adjunct Art History Instructor Relationship Specialty Start Date End Date Candis Colindres MD [address] [place] [place] [address] PCP - General Family Medicine 01/30/24 Adjunct Art History Instructor Relationship Specialty Start Date End Date Candis Colindres MD [address] [place] [phone] PCP - General Family Medicine 01/30/24 Adjunct Art History Instructor Relationship Specialty Start Date End Date Candis Colindres MD [address] [place] [phone] PCP - General Family Medicine 01/30/24 Adjunct Art History Instructor Relationship Specialty Start Date End Date Candis Colindres MD [address] [place] [address] PCP - General Family Medicine 01/30/24 Adjunct Art History Instructor Relationship Specialty Start Date End Date Candis Colindres MD [address] [place] [address] PCP - General Family Medicine 01/21/25 Adjunct Art History Instructor Relationship Specialty Start Date End Date Candis Colindres MD [address] [place] [address] PCP - General Family Medicine 01/21/25 Source Comments (unrecognize d section and content) [...] Back Pain Neck Pain Occipital Neuralgia- R Reason Comments Migraine Reason Comments Trigger Point Injections Goals (unrecognized section and content) Goals may [...] BE BASED ON THE PRIMARY CLINICAL RECORDS. [employer] provides no warranty or guarantee of the accuracy or completeness of information in this document.
[2025-02-01 07:22] VITALS: BP 142/94; PULSE 80; TEMP 36.2; O2SAT 100
[2025-02-01 08:31] VITALS: BP 136/80; PULSE 80; O2SAT 98
[2025-02-01 08:32] VITALS: BP 138/86; PULSE 78; O2SAT 98
--- NOTE | 2025-02-01 08:49 | P.ON_ITS ---
Date of procedure: 02/01/25 Pre-op diagnosis: Pain due to lumbar spondylosis without myelopathy Post-op diagnosis: same as pre-op Procedure: Procedure: Bilateral L4-5, L5-S1 radiofrequency ablation Medications: Bupivacaine 0.25% 6cc, lidocaine 2% 6cc, depomedrol 40mg The patient was seen and examined in the preoperative holding area.? The site was marked.? Written informed consent was obtained and placed on the chart.? The patient was brought to the medical procedure unit and placed in the prone position.? A timeout was completed verifying correct patient, procedure, positioning, and special requirements.? The skin overlying the target points, the designated medial branch, were prepped and draped in the usual sterile fashion.? The target point was achieved with a 20-gauge 15 cm with a 10 mm curved active tip radiofrequency cannula under direct fluoroscopic visualizati on.? The needle was inserted at level L4 on the right side. Needle tip position was confirmed with lateral fluoroscopic position.? Motor stimulation was carried out at 2 Hz up to 5 volts with the absence of extremity activity.? This was repeated at level L5, S1 on right side.?? Sensory stimulation was carried out.? Concordant pain was realized at the above- mentioned sites.? Then radiofrequency lesioning was carried out times 90 seconds at 80 degrees times 2 lesions at each level.? The radiofrequency probe was removed prior to cannula removal.? The above-mentioned injectate was placed in 1 mL increments.? The needle was removed. The same procedure, with the same steps, was then completed on the left side at the same levels. Insertion sites were covered.? The patient was taken to the postoperative recovery area and monitored for an appropriate length of time before being found suitable for discharge in the company of a responsible adult. Anesthesia: Local Surgeon: Aaliyah Hampton Pathology: none sent Condition: stable Disposition: no change
[2025-02-01] MEDS: LIDOCAINE HCL 2% 400 MG/20 ML MDV 16 ML INJ (08:50)
[2025-02-01] MEDS: BUPIVACAINE HCL 0.25% PF 25 MG/10 ML VIAL 4 ML INJ (08:50)
[2025-02-01] MEDS: METHYLPREDNISOLONE ACETATE 40 MG/ML VIAL 80 MG INJ (08:50)
== END 2025-02-01 08:53 | disposition home or self-care (01) ==
LOC: SURGOUT 07:12
PROVIDERS: PCP Physician Assistant; Visit Provider Anesthesiology
DX: M47.816 Spondylosis without myelopathy or radiculopathy, lumbar region (principal); M54.50 Low back pain, unspecified
CPT/HCPCS: 64635; 64636; J0665; J1010

== ENCOUNTER 2025-03-04 08:30 | Outpatient (OUT) | payer OTHER, SELFPAY ==
--- OUTSIDE RECORDS SUMMARY | 2024-11-19 04:15 | XMS_ITS ---
Author Organization [facility] Servic [facility] Address [address] [place] [address] Care Team Providers Care Back Strip Machine Operator Name Role Phone Jennifer York Primary Care Provider [phone] REASON FOR VISIT 3 month f/u Encounters Encounter Location Date Provider Diagnosis [facility] [address] [place] [address] 11/19/2024 Jennifer York Plan Of Treatment Next Appt Details Provider Name:Jennifer York, 0 05/10/2025 09:30:00 AM, [address] [place], [address], Progress Notes * NORAH ESCAMILLA ADOB:1985 (40 yo F)Acc No.[id number]:11/19/2024 Behavioral Health Patient: NORAH CRUMP Appointment Provider: Mel York :1985 A ge:39 Y S ex:Female Date:11/19/2024 Address:[address] [place], [place] [id number] Subjective: * Chief Complaints: * 1 . 3 month f/u. * Medical History: Objective: * Vitals: Assessment: Plan: * Treatment: * Images: * Electronic signature of BEBA OliveiraHNVince on 03/04/2025 at 01:33 PM EDT Sign off status: Pending * Appointment Provider: Mel York Date: 0 11/19/2024 Generated for Katelin rogers/Li/Keaton on: 0 03/04/2025 01:33 PM EDT
--- OUTSIDE RECORDS SUMMARY | 2025-03-04 13:34 | XMS_ITS | Encounter Summary ---
Author Organization [facility] Address [address] [place] [address] Care Team Providers Care Burrer Hand Name Role Phone Eyad ROSAS DO Vernon Gardiner Primary Care Provider Source Comments In the event this information is protected by the Federal Confidentiality of Alcohol and Drug AbusePatient Records regulations: The Federal rules restrict any use of the information to criminally investigate or prosecute any alcohol or drug abuse patient.[facility] Encounter Details Date Type Department Care Team (Late st Contact Info) Description 04/11/2022 Patient Msg Dermatology and Plastics [facility] [address] [place] [phone] Provider, [facility] appointment Social History Tobacco Use Types Packs/Day Years Used Date Smoking Tobacco: Never Smokeless Tobacco: Never Alcohol Use Standard Drinks/Week Comments Yes 1 (1 standard drink = 0.6 oz pur e alcohol) once a month, 1 drink AUDIT-C Answer Date Recorded Q1: How often do you have a drink containing alc ohol? 2-4 times a month 01/05/2020 Q2: How many drinks containi ng alcohol do you have on a typical day when you are drinking? 1 or 2 01/05/2020 Frequency of Binge Drinking Not on file 12/16 PHQ-2 Answer Date Recorded PHQ-2 score 1 05/09/2020 Area Deprivation Index Answer Date Yamil rded National Score (1-100), lower number is lower ri sk 74 04/12/2022 State Score (1-10), lower number is lower risk N ot on file 04/12/2022 Data from: https://www.neighborhoodatlas.medicine.[facility]/. Last address used for calculation [address] [facility] 04/12/2022 Comments No Sex and Gender Information Value Date Recorded Sex Assigned at Not on file Legal Sex Female 12:59 PM EDT Gender Identity Not on file Sexual Orientation Straight 10/11/2020 11 :58 AM EST COVID-19 Exposure Response Date Recorded In the last 10 days, have yo u been in contact with someone who was confirmed or suspected to have Coronavirus/COVID-19? No / Unsure 04/11/2022 1:49 PM EDT documented as of this encounter Functional Status * Are you deaf or do you have serious difficulty hearing? Answer Date of Assessment Author No 10/25/2020 12:29 PM Christianne Jaramillo * Are you blind or do you have serious difficulty seeing, even when wearing glasses? Answer Date of Assessment Author No 10/25/2020 12:29 PM Christianne Jaramillo * Do you have serious difficulty walking or climbing stairs? Answer Date of Assessment Author No 10/25/2020 12:29 PM Christianne Jaramillo * Do you have difficulty dressing or bathing? Answer Date of Assessment Author No 10/25/2020 12:29 PM Christianne Jaramillo * Because of a physical, mental, or emotional condition, do you have difficulty doing errands alone such as visiting a doctor's office or shopping? Answer Date of Assessment Author No 10/25/2020 12:29 PM Christianne Jaramillo documented as of this encounter Mental Status * Because of a physical, mental, or emotional condition, do you have serious difficulty concentrating, remembering, or making decisions? Answer Entry Date Author No 10/25/2020 12:29 PM Christianne Jaramillo documented in this encounter Plan of Treatment Not on file documented as of this encounter Visit Diagnoses Not on filedocumented in this encounter Care Teams Burrer Hand Relationship Specialty Start Date End Date Vernon Castano III, DO [address] [place] [address] PCP - General Family Medicine 10/04/20 documented as of this encounter
--- OUTSIDE RECORDS SUMMARY | 2025-03-04 13:34 | XMS_ITS | Encounter Summary ---
Author Organization [facility] Address [address] [place] [address] Care Team Providers Care Hand Weaver Name Role Phone BernadineCandis Lilia WILLIAMSON Primary Care Provider + Eyad ROSAS DO, Rolland R Primary Care Provider Source Comments In the event this information is protected by the Federal Confidentiality of Alcohol and Drug AbusePatient Records regulations: The Federal rules restrict any use of the information to criminally investigate or prosecute any alcohol or drug abuse patient.[facility] Encounter Details Date Type Department Care Team (Late st Contact Info) Description 08/04/2020 Patient Msg General Surgery [id number] [place] [address] Provider, [facility] Surgery Scheduling Postponed Social History Tobacco Use Types Packs/Day Years Used Date Smoking Tobacco: Never Smokeless Tobacco: Never Alcohol Use Standard Drinks/Week Comments Yes 0 (1 standard drink = 0.6 oz pur e alcohol) AUDIT-C Answer Date Recorded Q1: How often do you have a drink containing alc ohol? 2-4 times a month 01/05/2020 Q2: How many drinks containi ng alcohol do you have on a typical day when you are drinking? 1 or 2 01/05/2020 Frequency of Binge Drinking Not on file 12/16 PHQ-2 Answer Date Recorded PHQ-2 score 1 05/09/2020 Comments No Sex and Gender Information Value Date Recorded Sex Assigned at Not on file Legal Sex Female 12:59 PM EDT Gender Identity Not on file Sexual Orientation Straight 10/11/2020 11 :58 AM EST documented as of this encounter Plan of Treatment Not on file documented as of this encounter Visit Diagnoses Not on filedocumented in this encounter Additional Health Concerns Infection Onset Date Last Indicated Resolved Time COVID-19 Rule-Out 12/09/2020 12/14/2020 12/15/2020 1:45 PM EDT COVID-19 Rule-Out 12/17/2020 12/16/2020 01/06/2021 8:52 PM EDT documented as of this encounter Care Teams Hand Weaver Relationship Specialty Start Date End Date Candis Colindres DO [address] [place] [address] PCP - General Family Medicine 06/27/17 10/03/20 Vernon Castano III, DO [address] [address] PCP - General Family Medicine 10/04/20 documented as of this encounter
--- OUTSIDE RECORDS SUMMARY | 2025-03-04 13:34 | XMS_ITS | Encounter Summary ---
Author Organization [facility] Address [address] [place] [address] Care Team Providers Care Bricklayer'S Assistant Name Role Phone Eyad ROSAS DO Vernon Zuleyka Primary Care Provider Source Comments In the event this information is protected by the Federal Confidentiality of Alcohol and Drug AbusePatient Records regulations: The Federal rules restrict any use of the information to criminally investigate or prosecute any alcohol or drug abuse patient.[facility] Encounter Details Date Type Department Care Team (Late st Contact Info) Description 08/16/2021 Patient Msg General Surgery [address] [place] [phone] Provider, Ccf EGD Social History Tobacco Use Types Packs/Day Years [...] (1-100), lower number is lower ri sk Not on file 08/23/2020 State Score (1-10), lower number is lower risk N ot on file 08/23/2020 Data from: https://www.neighborhoodatlas.medicine.[facility]/. Last address used for calculation Not on file 08/23/2020 Comments No Sex and Gender Information Value Date Recorded Sex Assigned at Not on file Legal Sex Female 12:59 PM EDT Gender Identity Not on file Sexual Orientation Straight 10/11/2020 11 :58 AM EST documented as of this encounter Functional Status * Are you deaf or do you have serious difficulty hearing? Answer Date of Assessment Author No 10/25/2020 12:29 PM EST Christianne Quintana * Are you blind or do you have serious difficulty seeing, even when wearing glasses? Answer Date of Assessment Author No 10/25/2020 12:29 PM EST Christianne Quintana * Do you have serious difficulty walking or climbing stairs? Answer Date of Assessment Author No 10/25/2020 12:29 PM EST Christianne Quintana * Do you have difficulty dressing or bathing? Answer Date of Assessment Author No 10/25/2020 12:29 PM EST Christianne Quintana * Because of a physical, mental, or emotional condition, do you have difficulty doing errands alone such as visiting a doctor's office or shopping? Answer Date of Assessment Author No 10/25/2020 12:29 PM EST Christianne Quintana documented as of this encounter Mental Status * Because of a physical, mental, or emotional condition, do you have serious difficulty concentrating, remembering, or making decisions? Answer Entry Date Author No 10/25/2020 12:29 PM EST Christianne Quintana documented in this encounter Plan of Treatment Not on file documented as of this encounter Visit Diagnoses Not on filedocumented in this encounter Care Teams Bricklayer'S Assistant Relationship Specialty Start Date End Date Vernon Castano III, DO [address] [facility] [address] [place] [address] PCP - General Family Medicine 10/04/20 documented as of this encounter
--- OUTSIDE RECORDS SUMMARY | 2025-03-04 13:34 | XMS_ITS | Encounter Summary ---
Author Organization [facility] Address [address] [place] [address] Care Team Providers Care Singer Songwriter Name Role Phone BernadineCandis sommers Lilia WILLIAMSON Primary Care Provider + Eyad ROSAS DO, Rolland R Primary Care Provider Source Comments In the event this information is protected by the Federal Confidentiality of Alcohol and Drug AbusePatient Records regulations: The Federal rules restrict any use of the information to criminally investigate or prosecute any alcohol or drug abuse patient.[facility] Encounter Details Date Type Department Care Team (Late st Contact Info) Description 04/21/2020 Get Medical Advice General Surgery [address] [place], [place] [id number] Kaye Godwin, DISTRICT COURT BAILIFF.[facility] [address] [place] [address] RE: Visit Follow Up Question Social History Tobacco Use Types Packs/Day Years [...] of Binge Drinking Not on file 12/16 Comments No Sex and Gender Information Value Date Recorded Sex Assigned at Not on file Legal Sex Female 12:59 PM EDT Gender Identity Not on file Sexual Orientation Straight 10/11/2020 11 :58 AM EST COVID-19 Exposure Response Date Recorded In the last month, have you been in contact with someone who was confirmed or suspected to have Coronavirus / COVID-19? No / Unsure 04/07/2020 3:13 PM EDT documented as of this encounter Plan of Treatment Not on file documented as of this encounter Visit Diagnoses Not on filedocumented in this encounter Additional Health Concerns Infection Onset Date Last Indicated Resolved Time COVID-19 Rule-Out 12/09/2020 12/14/2020 12/15/2020 1:45 PM EDT COVID-19 Rule-Out 12/17/2020 12/16/2020 01/06/2021 8:52 PM EDT documented as of this encounter Care Teams Singer Songwriter Relationship Specialty Start Date End Date Candis Colindres DO [address] [place] [address] PCP - General Family Medicine 06/27/17 10/03/20 Vernon Castano III, DO [address] [place] [address] PCP - General Family Medicine 10/04/20 documented as of this encounter
--- OUTSIDE RECORDS SUMMARY | 2025-03-04 13:34 | XMS_ITS | Encounter Summary ---
Author Organization [facility] Address [address] [place] [address] Care Team Providers Care Automatic Machines Supervisor Name Role Phone Eyad ROSAS DO, Rolland Zuleyka Primary Care Provider Source Comments In the event this information is protected by the Federal Confidentiality of Alcohol and Drug AbusePatient Records regulations: The Federal rules restrict any use of the information to criminally investigate or prosecute any alcohol or drug abuse patient.[facility] Encounter Details Date Type Department Care Team (Late st Contact Info) Description 12/08/2020 Patient Msg General Surgery [address] [place] [phone] Provider, Ccf Follow Up After Visit with Dr. Ritesh Mcginnis Social History Tobacco Use Types Packs/Day Years [...] N ot on file 08/23/2020 Data from: https://www.neighborhoodatlas.medicine.[facility]/. Last address used for calculation [...] have Coronavirus / COVID-19? No / Unsure 12/09/2020 10:08 AM EDT documented as of this encounter Functional [...] documented as of this encounter Care Teams Automatic Machines Supervisor Relationship Specialty Start Date End Date Vernon Castano III, DO [address] [place] [address] PCP - General Family Medicine 10/04/20 documented as of this encounter
--- OUTSIDE RECORDS SUMMARY | 2025-03-04 13:34 | XMS_ITS | Clinical Summary ---
Author Organization [facility] Address [address] [place] [address] Care Team Providers Care Telephoner Name Role Phone Eyad RALPHDO Vernon Zuleyka Primary Care Provider Allergies Active Allergy Reactions Criticality Noted Date Comments Sumatriptan Other: See Comments Medium 06/27/2017 nausea Latex Other: See Comments Medium 06/27/[address] (PROTONIX) 40 mg tablet Take 40 mg by mouth once daily. Active gabapentin (NEURONTIN) 100 mg capsule Take 1 capsule by mouth three times daily for 14 days. 42 capsule Active scopolamine (TRANSDERM-SCOP) patch 1.5 mg/72 hr (1 mg over 3 days) Apply 1 Patch as directed every 72 hours. Apply one patch behind the ear every 3 days 5 Patch 1 Active ondansetron orally disintegrating (ZOFRAN ODT) 4 mg disintegrating tablet Take 1 tablet by mouth every 8 hours as needed for Nausea/Vomiting. 30 tablet 1 Active topiramate (TOPAMAX) 50 mg tablet Take 50 mg by mouth twice daily. Active FLUoxetine (PROZAC) 10 mg capsule Take 10 mg by mouth once daily. Active cetirizine (ZYRTEC) 10 mg tablet Take 10 mg by mouth once daily. Active propranolol ER (INDERAL LA) 120 mg 24 hr capsule Take 120 mg by mouth once daily. Active verapamil SR (CALAN SR, ISOPTIN SR) 120 mg CR tablet Take 1 tablet by mouth once daily. Active NURTEC ODT 75 mg disintegrating tablet Take 1 tablet by mouth PRN(NO DISPENSE) for Migraine Headache (see administration instructions). Active nystatin (MYCOSTATIN) powderIndications :S/P gastric bypass,Fungal skin infection Apply to affected skin up to 4 times per day 60 g 2 Active baclofen (LIORESAL) 10 mg tablet Take 10 mg by mouth as directed. Active fexofenadine (RODY ALLERGY) 180 mg tablet Take 180 mg by mouth once daily. Active biotin 5,000 mcg ODT Take by mouth. Activ e cyanocobalamin (VITAMIN B-12) 1,000 mcg tab Take 1,000 mcg by mouth once daily. Active Lactobacillus acidophilus (PROBIOTIC ORAL) Take by mouth. Active multivit-min/iron /folic acid/K (BARIATRIC MULTIVITAMINS ORAL) Take by mouth. Activ e clotrimazole (ALEVAZOL TOPICAL) Apply to affected area. Active dicyclomine HCl (BENTYL ORAL) Take by mouth. A ctive alprazolam (XANAX ORAL) Take by mouth. Activ e omeprazole (PRILOSEC) 20 mg capsule Take 20 mg by mouth once daily. 2020 Discontinued Active Problems Problem Noted Date Diagnosed Date PONV (postoperative nausea and vomiting) Alopecia 07/23/2018 Positive JUANITA (antinuclear antibody) 07/23/2018 Fibromyalgia 07/23/2018 Left ureteral stone 06/27/2017 Left lower quadrant pain 06/27/2017 Ureteral stone with hydronephrosis 06/27/2017 Hypertension Migraine GERD (gastroesophageal reflux disease) Iron deficiency anemia MELISA (obstructive sleep apnea) Hyperlipemia Asthma Overview (10/17/2020): uses inhaler a few times a month Resolved Problems Problem Noted Date Diagnosed Date Resolved Date Morbid obesity 05/04/2020 01/23/2021 Immunizations Immunization Administration Dates Next Due COVID-19 original vaccine, f ull dose, monovalent (MODERNA) 09/28/2020 influenza (IIV4) vaccine, ag e 6 mo - 64 yr, quadrivalent, PF (AFLURIA, FLUARIX, FLULAVAL, FLUZONE) 07/01/2020 influenza vaccine, unspecified formulation 06/17 Family History Medical History Relation Comments Obesity Brother No Known Problems Father Heart Maternal Aunt unknown Cancer Maternal Grandfather Cancer Maternal Grandmother Hyperlipidemia Maternal Grandmother Hypertension Maternal Grandmother Accidental Mother Cancer Paternal Grandmother Relation Status Comments Brother Father Alive Maternal Aunt Maternal Grandfather Maternal Grandmother Mother Paternal Grandfather Paternal Grandmother Social History Tobacco Use Types Packs/Day Years [...] lower number is lower ri sk 74 10/14/2022 State Score (1-10), lower number is lower risk N ot on file 10/14/2022 Data from: https://www.neighborhoodatlas.medicine.[facility].edu/. Last address used for calculation [address] [place] [address] 10/14/2022 Comments No Sex and Gender Information Value Date Recorded Sex Assigned at Not on file Legal Sex Female 12:59 PM EDT Gender Identity Not on file Sexual Orientation Straight 10/11/2020 11 :58 AM EST Last Filed Vital Signs Vital Sign Reading Time Taken Comments Blood Pressure 140/92 04/12/2022 2:47 PM EDT Pulse 65 04/12/2022 2:47 PM EDT Temperature 37.2 C (98.9 F) 04/12/2022 2:47 PM EDT Respiratory Rate 16 11/10/2021 11:08 AM EST Oxygen Saturation 100% 11/10/2021 11:08 AM EST Inhaled Oxygen Concentration - - Weight 55.5 kg (122 lb 6.4 oz) 04/12/2022 2:47 P M EDT Height 152.4 cm (5') 04/12/2022 2:47 PM EDT Body Mass Index 23.9 04/12/2022 2:47 PM EDT Plan of Treatment Health Maintenance Due Date Last Done Comments Annual PCP Team Chronic Dise ase Visit 2001 Anxiety Screening 2001 Depression Screening 2001 HIV Screening 2001 Hepatitis C Screening 2001 DTaP,Tdap,Td Vaccine (1 - Tdap) 2002 Hepatitis B Vaccine (1 of 3 - 19+ 3-dose series) 2002 Cervical Cancer Screening 02/22/2004 Mammogram Screening 2023 Covid-19 Vaccine (2023-2 5 season) 2024 11/11/2020, 09/28/2020 Influenza Vaccine (Season Ended) 2025 07/01/2020, 06/17/2020, 06/30/2018 Medical Devices Implanted Type Area Case Assembler Device Identifier Shelf Expiration Date Model / Serial / Lot Implant Implant Uterus Description:Mirena IUD Insurance [employer] MEDICAID [facility] Care Teams Telephoner Relationship Specialty Start Date End Date Vernon Castano III, DO [address] [place] [address] PCP - General Family Medicine 10/04/20
--- OUTSIDE RECORDS SUMMARY | 2025-03-04 13:34 | XMS_ITS | Encounter Summary ---
Author Organization [facility] Address [address] [place] [address] Care Team Providers Care Plc Technician Name Role Phone Eyad ROSAS DO Vernon Zuleyka Primary Care Provider Source Comments In the event this information is protected by the Federal Confidentiality of Alcohol and Drug AbusePatient Records regulations: The Federal rules restrict any use of the information to criminally investigate or prosecute any alcohol or drug abuse patient.[facility] Encounter Details Date Type Department Care Team (Late st Contact Info) Description 06/20/2021 Patient Msg General Surgery [address] [place] [phone] Provider, Ccf EGD Social History Tobacco Use [...] N ot on file 08/23/2020 Data from: https://www.neighborhoodatlas.medicine.[facility]/. Last address used for calculation Not on [...] have Coronavirus / COVID-19? No / Unsure 06/15/2021 11:22 AM EDT documented as of this encounter [...] on filedocumented in this encounter Care Teams Plc Technician Relationship Specialty Start Date End Date Vernon Castano III, DO [address] [place] [address] PCP - General Family Medicine 10/04/20 documented as of this encounter
--- OUTSIDE RECORDS SUMMARY | 2025-03-04 13:34 | XMS_ITS | Clinical Summary ---
Author Organization [facility] Address [address] [place] [address] Care Team Providers Care Service Delivery Consultant Name Role Phone Candis Colindres MD Primary Care Provider [phone] Allergies Active Allergy Reactions Criticality Noted Date Comments Sumatriptan GI intolerance 02/06/2024 Latex Rash Low 02/06/2024 Wound Dressing Adhesive 02/06/2024 Medications atomoxetine (Strattera) 80 MG capsule Take 80 mg by mouth Daily 11/13/19 24 Active DULoxetine (Cymbalta) [address] capsule Take 60 mg by mouth Daily 11/23/19 24 Active traZODone (Desyrel) 50 MG tablet Take 50 mg by mouth at bedtime 12/25/19 24 Active Vraylar 1.5 MG capsule Take 1 capsule by mouth Daily 12/24/19 24 Active pantoprazole (ProtoNix) 20 MG EC tablet Take 20 mg by mouth in the morning. Take before meals. 08/13/20 23 Active albuterol HFA 90 mcg/act inhaler Inhale 2 puffs every 4 (four) hours if needed for wheezing Active fluticasone (Flonase) 50 MCG/ACT nasal spray Administer 1 spray into each nostril Daily Shake gently. Before first use, prime pump. After use, clean tip and replace cap. Active Levonorgestrel (Mirena, 52 MG,) 20 MCG/DAY intrauterine device 52 mg 10/28/19 24 Active pregabalin (Lyrica) 100 MG capsule Take 100 mg by mouth in the morning and 100 mg in the evening and 100 mg before bedtime. 01/08/20 24 Active fremanezumab (Ajovy) 225 MG/1.5ML auto-injectorInd ications:Migrain e without status migrainosus, not intractable, unspecified migraine type Inject one 225 mg/1.5mL injection subcutaneously once per month 1.68 mL 11 04/06/20 24 Active Additional Information Patient not taking.Reported on 09/21/2024 atomoxetine (Strattera) 40 MG capsule TAKE 1 CAPSULE BY MOUTH EVERY DAY IN THE MORNING FOR 30 DAYS 05/19/20 Active Rimegepant Sulfate (Nurtec) 75 MG tablet dispersibleIndic ations:Migraine without status migrainosus, not intractable, unspecified migraine type DISSOLVE 1 TABLET ON THE TONGUE EVERY OTHER DAY 16 tablet 3 07/16/20 24 Active phentermine (Adipex-P) 37.5 MG tablet Take 37.5 mg by mouth Daily 07/08/20 24 Active tiZANidine (Zanaflex) 4 MG tablet TAKE ONE TABLET BY MOUTH THREE TIMES A DAY NEEDED FOR MUSCLE SPASTICITY 07/23/20 Active DULoxetine (Cymbalta) [address] capsule TAKE 1 CAPSULE BY MOUTH EVERY DAY FOR 30 DAYS 09/13/20 Active Active Problems Problem Noted Date Diagnosed Date Chronic migraine without aur a with status migrainosus, not intractable 05/31/2024 Facet arthropathy 05/31/2024 Paresthesias 05/31/2024 Overview (05/31/2024): See above. DDD (degenerative disc disease), lumbar 05/31/20 Overview (05/31/2024): Painful paresthesias in lower extremities with longer periods of sitting. Also occurring when up and about. PT was previously beneficial. Lumbar MRI with degenerative disc disease and facet arthropathy which could be causing a lot of her isolated back pain. She did have significant relief in her pain after the facet injection but not significant improvement in the paresthesias; these are overall better with Lyrica and duloxetine. PLAN - Continue following with pain management (Carlos) - Continue Lyrica 50 mg 3 times a day. - Continue duloxetine 90 mg daily (ordered by PCP) Facet arthropathy, lumbar 05/31/2024 Cervical spondylosis 05/31/2024 Overview (05/31/2024): Patient previously reported worsening right arm numbness and tingling, even with improvement of her neck pain. Cervical MRI 11/10/2021 with degenerative changes at C5-C6 and C6-C7 with moderate neural foraminal stenosis at C6-C7 on the left. She does admit that recent trigger injections helped with her muscle pain but neck pain seems to be her primary complaint today. PLAN - Referral to PT - Continue follow up with pain mangement (Carlos) - Medications as above Fibromyalgia 05/31/2024 Overview (05/31/2024): History of fibromyalgia, with previous evaluation with Rheumatology (though not for several years). This may be causative for her painful paresthesias and fatigue, especially given the sporadic nature and lack of dermatomal distribution. PLAN - As above GERD (gastroesophageal reflux disease) Headache 05/31/2024 Episodic tension-type headache, not intractable 05/31/2024 Overview (05/31/2024): See above. Chronic migraine with aura 05/31/2024 Overview (05/31/2024): Chronic migraines with aura since high school that initially occurred most days of the week. It sounds like she was experiencing a combination of tension type headaches, cervicogenic headaches, and migraines with associated visual aura. Previously amenable to NSAIDs but since having a gastric bypass surgery in October 2020 she can no longer take these. Nurtec QOD has been very beneficial as a preventative and she has not had a severe migraine several months. Baclofen, has helped some with the cervicogenic component PLAN - Continue Nurtec 75 mg ODT every other day for preventative. Tolerating without side effects. - Continue propranolol 120mg ER daily (migraines, blood pressure) - Stopped verapamil (ineffective), topiramate (ineffective) - triptans (caused intolerable nausea even low doses) and cannot have NSAIDs due gastric bypass - Failed methocarbamol and tizanidine and cyclobenzaprine - Continue Baclofen 5mg TID, prn; side effects were discussed Nasal obstruction 02/17/2024 Anxiety disorder 02/06/2024 Hypertension 02/06/2024 Depression 02/06/2024 Migraines 02/06/2024 Myalgia 02/06/2024 MELISA (obstructive sleep apnea) 02/06/2024 Asthma 02/06/2024 Hypercholesterolemia 02/06/2024 Prediabetes 02/06/2024 Osteoarthritis 02/06/2024 Encounters Date Type Department Care Team Description 01/21/2025 8:20 AM EDT Clinical Support JUANITA GONZALEZ [facility] [phone] Arminda Helton PA Myalgia (Primary Dx); Neck pain; Cervical spondylosis; Trigger point of neck 01/21/2025 Bamboo flowsheet [place] [id number] [address] [phone] Arminda Helton PA 01/04/2025 2:40 PM EDT Office Visit [place] [id number] [phone] Arminda Helton PA Migraine without status migrainosus, not intractable, unspecified migraine type (Primary Dx); Myalgia; Cervical spondylosis; Fibromyalgia; Degeneration of intervertebral disc of lumbar region, unspecified whether pain present; Trigger point of neck; Neck pain 01/04/2025 Telephone [place] [id number] [address] [phone] Arminda Helton PA triggers 01/04/2025 Bamboo flowsheet [facility] [address] [phone] Arminda Helton PA from Last 3 Months Family History Medical History Relation Name Comments Alcohol abuse Brother Depression Brother Hypertension Father Relation Name Status Comments Brother Father Alive Mother Social History Tobacco Use Types Packs/Day Years Used Date Smoking Tobacco: Every Day Cigarettes Smokeless Tobacco: Never Alcohol Use Standard Drinks/Week Comments Yes 0 (1 standard drink = 0.6 oz pure alcohol) caffeine: coffee and pop on occasion AUDIT-C Answer Date Recorded Q1: How often do you have a drink containing alc ohol? Monthly or less 05/31/2024 Q2: How many drinks containi ng alcohol do you have on a typical day when you are drinking? 1 or 2 05/31/2024 Q3: How often do you have si x or more drinks on one occasion? Never 05/31/2024 Comments Unknown Sex and Gender Information Value Date Recorded Sex Assigned at Not on file Legal Sex Female 9:44 PM EDT Gender Identity Not on file Sexual Orientation Not on file Last Filed Vital Signs Vital Sign Reading Time Taken Comments Blood Pressure 122/82 01/21/2025 8:26 AM EDT Pulse 75 01/21/2025 8:26 AM EDT Temperature - - Respiratory Rate 16 01/21/2025 8:26 AM EDT Oxygen Saturation 97% 01/21/2025 8:26 AM EDT Inhaled Oxygen Concentration - - Weight 78.5 kg (173 lb) 01/21/2025 8:26 AM EDT Height 154.9 cm (5' 1 ) 01/21/2025 8:26 AM EDT Body Mass Index 32.69 01/21/2025 8:26 AM EDT Plan of Treatment Health Maintenance Due Date Last Done Comments Pap Smear 02/22/2004 Cervical Cancer Screening 2013 HPV/Cotest 2013 Mammogram 2023 Influenza Vaccine Completed 07/14/2024, , 06/17/2020, Additional history exists Procedures Procedure Name Priority Date/Time Associated Diagnosis Comments NH INJECTION SINGLE/ARMORER TECHNICIAN TRIGGER POINT 3/> MUSCLES Routine 01/21/2025 8:52 AM EDT Myalgia Neck pain Cervical spondylosis Trigger point of neck from Last 3 Months Results * NH INJECTION SINGLE/ARMORER TECHNICIAN TRIGGER POINT 3/> MUSCLES (01/21/2025 8:52 AM EDT) Arminda Triana PA - 01/21/2025 8:52 AM EDT DEE Rosales 01/21/2025 8:54 AM Trigger Point Injection: right cervical [...] discussed. Consent was given by the patient. us Arminda PRICE IN CLINIC/BEDSIDE ORDERABLES Fin star Result from Last 3 Months Insurance [employer] Care Teams Service Delivery Consultant Relationship Specialty Start Date End Date Candis Colindres MD [address] [place] [phone] PCP - General Family Medicine 01/21/25
--- OUTSIDE RECORDS SUMMARY | 2025-03-04 13:34 | XMS_ITS | Encounter Summary ---
Author Organization [facility] Address [address] [place] [address] Care Team Providers Care Risk Management Internship Name Role Phone Eyad ROSAS DO, Rolland R Primary Care Provider Source Comments In the event this information is protected by the Federal Confidentiality of Alcohol and Drug AbusePatient Records regulations: The Federal rules restrict any use of the information to criminally investigate or prosecute any alcohol or drug abuse patient.[facility] Encounter Details Date Type Department Care Team (Late st Contact Info) Description 06/12/2021 Abstract General Surgery [address] [facility] [address] [place] [address] [place] [address] [place] [address] Social History Tobacco Use Types Packs/Day Years [...] N ot on file 08/23/2020 Data from: https://www.neighborhoodatlas.medicine.[facility]/. Last address used for calculation Not on [...] on filedocumented in this encounter Care Teams Risk Management Internship Relationship Specialty Start Date End Date Vernon Castano III, DO [address] [place] [address] PCP - General Family Medicine 10/04/20 documented as of this encounter
--- OUTSIDE RECORDS SUMMARY | 2025-03-04 13:34 | XMS_ITS | Encounter Summary ---
Author Organization [facility] Address [address] [place] [address] Care Team Providers Care Non Destructive Testing Supervisor Name Role Phone Eyad ROSAS DO, Rolland R Primary Care Provider Source Comments In the event this information is protected by the Federal Confidentiality of Alcohol and Drug AbusePatient Records regulations: The Federal rules restrict any use of the information to criminally investigate or prosecute any alcohol or drug abuse patient.[facility] Encounter Details Date Type Department Care Team (Late st Contact Info) Description 03/21/2023 Patient Msg General Surgery [address] [facility] [address] [place] [address] [place] [address] [facility] [address] [place] [address] Appointment Request Social History Tobacco Use Types Packs/Day Years [...] N ot on file 10/14/2022 Data from: https://www.neighborhoodatlas.[facility]/. Last address used for calculation [address] [facility] 10/14/2022 Comments No Sex and Gender Information [...] on filedocumented in this encounter Care Teams Non Destructive Testing Supervisor Relationship Specialty Start Date End Date Vernon Castano III, DO [address] [place] [address] PCP - General Family Medicine 10/04/20 documented as of this encounter
--- OUTSIDE RECORDS SUMMARY | 2025-03-04 13:34 | XMS_ITS | Encounter Summary ---
Author Organization [facility] Address [address] [place] [address] Care Team Providers Care Shift Leader Name Role Phone Eyad ROSAS DO Vernon Gardiner Primary Care Provider Source Comments In the event this information is protected by the Federal Confidentiality of Alcohol and Drug AbusePatient Records regulations: The Federal rules restrict any use of the information to criminally investigate or prosecute any alcohol or drug abuse patient.[facility] Encounter Details Date Type Department Care Team (Late st Contact Info) Description 01/17/2021 Patient Msg General Surgery [address] [place] [address] Provider, [facility] Nutrition Summary Social History Tobacco Use Types Packs/Day Years [...] N ot on file 08/23/2020 Data from: https://www.neighborhoodatlas.medicine.[facility]/. Last address used for calculation Not [...] Author No 10/25/2020 12:29 PM EST Christianne Quitnana * Do you have serious difficulty walking or climbing stairs? Answer Date of Assessment Author No 10/25/2020 12:29 PM EST Christianne Quintana * Do you have difficulty dressing or bathing? Answer Date of Assessment Author No 10/25/2020 12:29 PM EST Christianne Quintana B * Because of a physical, mental, or [...] on filedocumented in this encounter Care Teams Shift Leader Relationship Specialty Start Date End Date Vernon Castano III, DO [address] [place] [address] PCP - General Family Medicine 10/04/20 documented as of this encounter
--- OUTSIDE RECORDS SUMMARY | 2025-03-04 13:34 | XMS_ITS | Encounter Summary ---
Author Organization [facility] Address [address] [place] [address] Care Team Providers Care Quality Control Auditor Name Role Phone BernadineCandis Lilia WILLIAMSON Primary Care Provider + Eyad ROSAS DO, Rolland R Primary Care Provider Source Comments In the event this information is protected by the Federal Confidentiality of Alcohol and Drug AbusePatient Records regulations: The Federal rules restrict any use of the information to criminally investigate or prosecute any alcohol or drug abuse patient.[facility] Encounter Details Date Type Department Care Team (Late st Contact Info) Description 09/27/2020 Patient Msg General Surgery [address] [place] [id number] Provider, [facility]cf Bariatric Surgery Pre Op Instructions Social History Tobacco Use Types Packs/Day Years [...] N ot on file 08/23/2020 Data from: https://www.neighborhoodatlas.medicine.[facility]/. Last address used for calculation Not [...] or suspected to have Coronavirus / COVID-19? Unable to assess 09/27/2020 3:44 PM EST documented as of this encounter Plan of Treatment Not on file documented as of this encounter Visit Diagnoses Not on filedocumented in this encounter Additional Health Concerns Infection Onset Date Last Indicated Resolved Time COVID-19 Rule-Out 12/09/2020 12/14/2020 12/15/2020 1:45 PM EDT COVID-19 Rule-Out 12/17/2020 12/16/2020 01/06/2021 8:52 PM EDT documented as of this encounter Care Teams Quality Control Auditor Relationship Specialty Start Date End Date Candis Colindres DO [address] [place] [address] PCP - General Family Medicine 06/27/17 10/03/20 Vernon Castano III, DO [address] [address] PCP - General Family Medicine 10/04/20 documented as of this encounter
--- OUTSIDE RECORDS SUMMARY | 2025-03-04 13:34 | XMS_ITS | Encounter Summary ---
Author Organization [facility] Address [address] [place] [address] Care Team Providers Care Locker Room Manager Name Role Phone Eyad ROSAS DO Vernon Zuleyka Primary Care Provider Source Comments In the event this information is protected by the Federal Confidentiality of Alcohol and Drug AbusePatient Records regulations: The Federal rules restrict any use of the information to criminally investigate or prosecute any alcohol or drug abuse patient.[facility] Reason for Visit * Reason Comments Refill Request Encounter Details Date Type Department Care Team (Late st Contact Info) Description 03/26/2024 Refill Internal Medicine [address] [place], [place] [phone] [place] [address] [place], [place] [phone] Refill Request Social History Tobacco Use Types Packs/Day [...] N ot on file 10/14/2022 Data from: https://www.neighborhoodatlas.medicine.[facility]/. Last address used for calculation [address] [facility] 10/14/2022 Comments No Sex and Gender Information [...] PM Christianne Jaramillo documented in this encounter Miscellaneous Notes * Telephone Encounter - Mahi Adam MA - 03/26/2024 11:11 AM EDT Requesting refills as follows: Requested Prescriptions Pending Prescriptions Disp Refills amitriptyline (ELAVIL) 25 mg tablet [Pharmacy Med Name: amitriptyline 25 mg tablet] 30 tablet 3 Sig: take one (1) tablet by mouth once daily Last visit Visit date not found Next scheduled Visit date not found documented in this encounter Plan of Treatment Not on file documented as of this encounter Visit Diagnoses Not on filedocumented in this encounter Care Teams Locker Room Manager Relationship Specialty Start Date End Date Vernon Castano III, DO [address] [facility] [address] [place] [address] PCP - General Family Medicine 10/04/20 documented as of this encounter
--- OUTSIDE RECORDS SUMMARY | 2025-03-04 13:34 | XMS_ITS | Referral Summary ---
Author Organization [facility] Address [address] [place] [address] Care Team Providers Care Phlebotomist Associate Name Role Phone Unavailable Primary Care Provider Unavailabl e Social History Tobacco Use Types Packs/Day Years Used Date Smoking Tobacco: Never Assessed Comments Unknown Sex and Gender Information Value Date Recorded Sex Assigned at Not on file Legal Sex Female 12:30 AM EDT Gender Identity Not on file Sexual Orientation Not on file Plan of Treatment Not on file
--- OUTSIDE RECORDS SUMMARY | 2025-03-04 13:34 | XMS_ITS | Patient Health Record ---
Author Organization [facility] Address [address] [place] [address] Care Team Providers Care Lead Caster Name Role Phone Jennifer York Primary Care Provider [phone] Allergies Allergen (clinical drug ingredient) Drug/Non Drug Allergy documented on EMR Reaction Allergy Type Onset Date Status sumatriptan Imitrex nausea Drug Allergy Activ e Adhesive Unknown Allergy Active Latex Latex rash Allergy Active Reason For Referral No Information Medications Medication SIG (Take, Route, Frequency, Duration) Notes Start Date End Date Status Ondansetron HCl 4 MG 1 tablet Orally Onc e a day Active Pantoprazole Sodium 20 MG 1 tablet Orall y Once a day Not-Taking Baclofen 10 MG 1 tablet Orally daily Active Propranolol HCl ER 120 MG 1 capsule Oral ly as directed Not-Taking DULoxetine HCl 60 MG 1 capsule Orally On ce a day Active Lyrica 50 MG 1 capsule Orally thr ee times a day (tid) Active traZODone HCl 50 MG 1 tablet at bedtime as needed Orally Once a day Active Ventolin HFA 108 (90 Base) MCG/ACT 1 puff as needed Inhalation every 4 hrs Active Verapamil HCl ER 180 MG 1 tablet Orally Once a day Not-Taking Nurtec 75 MG 1 tablet on the tong ue and allow to dissolve Orally daily Active hydrOXYzine Pamoate 50 MG 1 capsule Orally every 6 hours for 30 days As needed 01/04/2025 Active Mirena Active Topiramate 50 MG 1 tablet Orally Twic e a day Active DULoxetine HCl 30 MG 1 capsule Orally On ce a day for 30 days Active Atomoxetine HCl 40 MG 1 capsule in the morning Orally twice daily 08/27/2023 Active Vraylar 1.5 mg one capsule orally daily Active Social History Tobacco Use: Social History Observation Description Date Details (start date - stop date) Never Smoker NA - NA Tobacco Screen: Question Answer Notes Are you a: never smoker Alcohol Screening: Question Answer Notes Did you have a drink contain ing alcohol in the past year? Yes How often did you have a dri nk containing alcohol in the past year? Monthly or less (1 point) How many drinks did you have on a typical day when you were drinking in the past year? 1 or 2 (0 points) How often did you have six o r more drinks on one occasion in the past year? Never (0 points) Points 1 Interpretation Negative Depression Screening (PHQ-9): Question Answer Notes Little interest or pleasure in doing things Dixie ral days Feeling down, depressed, or hopeless Several day s Trouble falling or staying asleep, or sleeping t oo much More than half the days Feeling tired or having little energy More than half the days Poor appetite or overeating Not at all Feeling bad about yourself-o r that you are a failure or have let yourself or your family down Not at all Trouble concentrating on thi ngs, such as reading the newspaper or watching television Nearly every day Moving or speaking so slowly that other people could have noticed. Or the opposite being so fidgety or restless that you have been moving around a lot more than usual Several days Thoughts that you would be b daren off , or of hurting yourself in some way Not at all Total Score 10 Intepretation Moderate Depression Problems Problem Type SNOMED Code ICD Code Onset Dates Problem Status W/U Status Risk Notes Problem Body mass index 30+ - obesity (934425940) BMI 30.0-30.9,adul t (Z68.30) Active confirmed Problem Posttraumatic stress disorder (03934887) Post traumatic stress disorder (F43.10) Active confirmed Problem Recurrent major depression (15356402) Major depressive disorder, recurrent episode with anxious distress (F33.9) Active confirmed Vital Signs Heart Rate 94 /min 08/19/2024 Oximetry 98 % 02/15/2025 Blood pressure diastolic 78 mm Hg 08/19/2024 Height 62 in 02/15/2025 Blood pressure systolic 118 mm Hg 08/19/2024 Weight 168.0 lbs 02/15/2025 BMI 30.72 kg/m2 02/15/2025 Encounters Encounter Location Date Provider Diagnosis [facility] [address] [place] [address] 04/06/2024 [facility] [address] [place] [address] 04/15/2024 Jennifer York Major depressive disorder, recurrent episode with anxious distress F33.9 [facility] [address] [place] [address] 07/17/2024 [facility] [address] [place] [address] 11/12/2024 Jennifer York Major depressive disorder, recurrent episode with anxious distress F33.9 [facility] [address] [place] [address] 01/04/2025 [facility] [place] [address] [place] [address] 05/19/2024 Jennifer York Major depressive disorder, recurrent episode with anxious distress F33.9 [facility] [address] [place] [address] 08/19/2024 Jennifer York Major depressive disorder, recurrent episode with anxious distress F33.9 and Post traumatic stress disorder F43.10 [facility] [address] [place] [address] 11/16/2024 Jennifer York Major depressive disorder, recurrent episode with anxious distress F33.9 and Post traumatic stress disorder F43.10 [facility] [address] [place] [address] 02/15/2025 Jennifer York Major depressive disorder, recurrent episode with anxious distress F33.9 and Post traumatic stress disorder F43.10 Assessments Encounter Date Diagnosis (ICD Code) Assessment Notes Treatment Notes Treatment Clinical Notes Section Notes 05/19/2024 Major depressive disorder, recurrent episode with anxious distress (ICD-10 - F33.9) Recommended treatment is: _ FDA approved medication for this age group include Selective Serotonin Reuptake Inhibitors (SSRI) and Selective Norepinephrine Reuptake Inhibitors (SNRI). . Selective serotonin reuptake inhibitors can cause nausea, headache, upset stomach, diarrhea, constipation, anxiety, irritability, and sexual dysfunction. . Please monitor for worsening of symptoms, especially suicidal ideations or morbid thoughts, and call office and or go to the emergency department immediately. Pt does not endorse exhibiting symptoms aligning with renard. . The patient verbalizes understanding with all questions answered thoroughly and is in agreement with treatment plan. . Continue current treatment plan Patient/Guardian will call sooner if symptoms worsen. Patient understands to go to ER if needed if symptoms become severe. Crisis Intervention plan was discussed and agreed upon. Patient/Guardian will call 911 in case of emergency. Emergency contact information was provided to the patient/guardian. 08/19/2024 Major depressive disorder, recurrent episode with anxious distress (ICD-10 - F33.9) Recommended treatment is: _ FDA approved medication for this age group include Selective Serotonin Reuptake Inhibitors (SSRI) and Selective Norepinephrine Reuptake Inhibitors (SNRI). . Selective serotonin reuptake inhibitors can cause nausea, headache, upset stomach, diarrhea, constipation, anxiety, irritability, and sexual dysfunction. . Please monitor for worsening of symptoms, especially suicidal ideations or morbid thoughts, and call office and or go to the emergency department immediately. Pt does not endorse exhibiting symptoms aligning with renard. . The patient verbalizes understanding with all questions answered thoroughly and is in agreement with treatment plan. . Continue current treatment plan Patient/Guardian will call sooner if symptoms worsen. Patient understands to go to ER if needed if symptoms become severe. Crisis Intervention plan was discussed and agreed upon. Patient/Guardian will call 911 in case of emergency. Emergency contact information was provided to the patient/guardian. 11/16/2024 Major depressive disorder, recurrent episode with anxious distress (ICD-10 - F33.9) Recommended treatment is: _ FDA approved medication for this age group include Selective Serotonin Reuptake Inhibitors (SSRI) and Selective Norepinephrine Reuptake Inhibitors (SNRI). . Selective serotonin reuptake inhibitors can cause nausea, headache, upset stomach, diarrhea, constipation, anxiety, irritability, and sexual dysfunction. . Please monitor for worsening of symptoms, especially suicidal ideations or morbid thoughts, and call office and or go to the emergency department immediately. Pt does not endorse exhibiting symptoms aligning with renard. . The patient verbalizes understanding with all questions answered thoroughly and is in agreement with treatment plan. . Continue current treatment plan Patient/Guardian will call sooner if symptoms worsen. Patient understands to go to ER if needed if symptoms become severe. Crisis Intervention plan was discussed and agreed upon. Patient/Guardian will call 911 in case of emergency. Emergency contact information was provided to the patient/guardian. 02/15/2025 Major depressive disorder, recurrent episode with anxious distress (ICD-10 - F33.9) Recommended treatment is: _ FDA approved medication for this age group include Selective Serotonin Reuptake Inhibitors (SSRI) and Selective Norepinephrine Reuptake Inhibitors (SNRI). . Selective serotonin reuptake inhibitors can cause nausea, headache, upset stomach, diarrhea, constipation, anxiety, irritability, and sexual dysfunction. . Please monitor for worsening of symptoms, especially suicidal ideations or morbid thoughts, and call office and or go to the emergency department immediately. Pt does not endorse exhibiting symptoms aligning with renard. . The patient verbalizes understanding with all questions answered thoroughly and is in agreement with treatment plan. . Continue current treatment plan Patient/Guardian will call sooner if symptoms worsen. Patient understands to go to ER if needed if symptoms become severe. Crisis Intervention plan was discussed and agreed upon. Patient/Guardian will call 911 in case of emergency. Emergency contact information was provided to the patient/guardian. 02/15/2025 Post traumatic stress disorder (ICD-10 - F43.10) 11/12/2024 Major depressive disorder, recurrent episode with anxious distress (ICD-10 - F33.9) 11/16/2024 Post traumatic stress disorder (ICD-10 - F43.10) 08/19/2024 Post traumatic stress disorder (ICD-10 - F43.10) 04/15/2024 Major depressive disorder, recurrent episode with anxious distress (ICD-10 - F33.9) Plan Of Treatment Next Appt Details Provider Name:Toro Burciaga 05/10/2025 09:30:00 AM, [address] [place], [address], Insurance Providers Payer Name Payer Address Payer Phone Subscriber Number Group Number Insured Name Patient Relationship to Insured Coverage Start Date Coverage End Date [employer] [address] [place] [phone] [id number] NORAH ESCAMILLA Self - patient is the insured 3 BH [employer] [place] Medicaid [address] [place] [address] [id number] NORAH ESCAMILLA Self - patient is the insured 3 4 Wrap [facility] [address] [place] [address] [id number] NORAH ESCAMILLA Self - patient is the insured 3 4 Medical (General) History Medical History History ICD Code generalized anxiety plantar fasciitis essential hypertension GERD major depressive disorder, single episod e, unspecified Myalgia Myositis Sleep apnea hypercholesterolemia asthma osteoarthritis seasonal allergies Surgical History Surgery Date(Month/Year) Orthopedic, foot surgery, right for plan tar fasiciitis 04/2018 procedure of knee 2013 Gastric Bypass, w/hiatal hernia repair Cholecystectomy 12/1995 hysterectomy 2004 orthopedic surgery 2006 pain management, nerve block injection 2 023 Hospitalization History Reason Date(Month/Year) see surgery hx.
--- OUTSIDE RECORDS SUMMARY | 2025-03-04 13:34 | XMS_ITS | Encounter Summary ---
Author Organization [facility] Address [address] [place] [address] Care Team Providers Care Can Washer Name Role Phone BernadineCandis Lilia WILLIAMSON Primary Care Provider + Eyad ROSAS DO, Rolland R Primary Care Provider Source Comments In the event this information is protected by the Federal Confidentiality of Alcohol and Drug AbusePatient Records regulations: The Federal rules restrict any use of the information to criminally investigate or prosecute any alcohol or drug abuse patient.[facility] Encounter Details Date Type Department Care Team (Late st Contact Info) Description 07/26/2020 Patient Msg General Surgery [address] [place] [address] Provider, [facility] Bariatric Surgery Approval Social History Tobacco Use Types Packs/Day Years [...] documented as of this encounter Care Teams Can Washer Relationship Specialty Start Date End Date Candis Colindres DO [address] [place] [address] PCP - General Family Medicine 06/27/17 10/03/20 Vernon Castano III, DO [address] [address] PCP - General Family Medicine 10/04/20 documented as of this encounter
--- OUTSIDE RECORDS SUMMARY | 2025-03-04 13:34 | XMS_ITS | Clinical Summary ---
Author Organization [facility] Address [address] [place] [address] Care Team Providers Care Client Support Consultant Name Role Phone Unavailable Primary Care Provider [...]
--- OUTSIDE RECORDS SUMMARY | 2025-03-04 13:34 | XMS_ITS | Encounter Summary ---
Author Organization [facility] Address [address] [place] [address] Care Team Providers Care Maintenance Repairer Name Role Phone BernadineCandis sommers Lilia WILLIAMSON Primary Care Provider + Eyad ROSAS DO, Rolland R Primary Care Provider Source Comments In the event this information is protected by the Federal Confidentiality of Alcohol and Drug AbusePatient Records regulations: The Federal rules restrict any use of the information to criminally investigate or prosecute any alcohol or drug abuse patient.[facility] Encounter Details Date Type Department Care Team (Late st Contact Info) Description 05/16/2020 Get Medical Advice General Surgery [address] [place], [place] [phone] Kaye Godwin, LEGAL DIRECTOR.[facility] [address] [place] [address] RE: Test Result Question Social History Tobacco Use Types Packs/Day [...] documented as of this encounter Care Teams Maintenance Repairer Relationship Specialty Start Date End Date Candis Colindres DO [address] [place] [address] PCP - General Family Medicine 06/27/17 10/03/20 Vernon Castano III, DO [address] [address] PCP - General Family Medicine 10/04/20 documented as of this encounter
--- OUTSIDE RECORDS SUMMARY | 2025-03-04 13:34 | XMS_ITS | Encounter Summary ---
Author Organization [facility] Address [address] [place] [address] Care Team Providers Care Commercial Relief Driver Name Role Phone Eyad ROSAS DO, Rolland R Primary Care Provider Source Comments In the event this information is protected by the Federal Confidentiality of Alcohol and Drug AbusePatient Records regulations: The Federal rules restrict any use of the information to criminally investigate or prosecute any alcohol or drug abuse patient.[facility] Encounter Details Date Type Department Care Team (Late st Contact Info) Description 02/09/2021 Patient Msg General Surgery [address] [facility] [address] [place] [address] [place] [address] [facility] [address] [place] [phone] RE: Appointment Request Social History Tobacco Use Types [...] N ot on file 08/23/2020 Data from: https://www.neighborhoodatlas.[facility]/. Last address used for calculation Not [...] have Coronavirus / COVID-19? No / Unsure 02/06/2021 8:33 AM EDT documented as of this encounter [...] on filedocumented in this encounter Care Teams Commercial Relief Driver Relationship Specialty Start Date End Date Vernon Castano III, DO [address] [place] [address] PCP - General Family Medicine 10/04/20 documented as of this encounter
--- OUTSIDE RECORDS SUMMARY | 2025-03-04 13:34 | XMS_ITS | Encounter Summary ---
Author Organization [facility] Address [address] [place] [id number] Care Team Providers Care Lead Refinery Supervisor Name Role Phone BernadineCandis Lilia WILLIAMSON Primary Care Provider + Eyad ROSAS DO, Rolland R Primary Care Provider Source Comments In the event this information is protected by the Federal Confidentiality of Alcohol and Drug AbusePatient Records regulations: The Federal rules restrict any use of the information to criminally investigate or prosecute any alcohol or drug abuse patient.[facility] Encounter Details Date Type Department Care Team (Late st Contact Info) Description 08/17/2020 Patient Msg General Surgery [id number] [place] [address] Provider, [facility] Schedule Bariatric Surgery Social History Tobacco Use Types Packs/Day Years [...] documented as of this encounter Care Teams Lead Refinery Supervisor Relationship Specialty Start Date End Date Candis Colindres DO [address] [place] [address] PCP - General Family Medicine 06/27/17 10/03/20 Vernon Castano III, DO [address] [address] PCP - General Family Medicine 10/04/20 documented as of this encounter
--- OUTSIDE RECORDS SUMMARY | 2025-03-04 13:34 | XMS_ITS | Encounter Summary ---
Author Organization [facility] Address [address] [place] [id number] Care Team Providers Care Ios Programmer Name Role Phone BernadineCandis Lilia WILLIAMSON Primary Care Provider + Eyad ROSAS DO, Rolland R Primary Care Provider Source Comments In the event this information is protected by the Federal Confidentiality of Alcohol and Drug AbusePatient Records regulations: The Federal rules restrict any use of the information to criminally investigate or prosecute any alcohol or drug abuse patient.[facility] Encounter Details Date Type Department Care Team (Late st Contact Info) Description 08/18/2020 Patient Msg General Surgery [id number] [place] [address] Provider, Ccf Postponement of Non Essential Surgery Social History Tobacco Use Types Packs/Day [...] documented as of this encounter Care Teams Ios Programmer Relationship Specialty Start Date End Date Candis Colindres DO [address] [place] [address] PCP - General Family Medicine 06/27/17 10/03/20 Vernon Castano III, DO [address] [address] PCP - General Family Medicine 10/04/20 documented as of this encounter
--- OUTSIDE RECORDS SUMMARY | 2025-03-04 13:37 | XMS_ITS | CCD ---
Author Organization [facility] CliniSywi Care Team Providers Care Plastic Press Molder Name Role Phone Jose Castano III Primary [...] Berman Attending Unavailable Zack Berman Admitting Unavailable NILPer, Zack Gardiner Attending Unavailable Jose Castano Referring Unavailable Zack BERMAN Attending Unavailable Zack BERMAN Attending Unavailable Candis Colindres MD Primary Care Provider Candis Colindres MD Primary Care Provider ARMINDA HELTON Attending Unavailable ARMINDA HELTON Attending Unavailable AUDREY VELA Attending Unavailable JOSE CASTANO Referring Unavailable GODWIN KEYES Attending Unavailable GODWIN KEYES Attending Unavailable GODWIN KEYES Attending Unavailable Berta KOENIG, Aaliyah Arellano Attending Unavailable Berta KOENIG, Aaliyah Arellano Attending Unavailable Gicourtney KOENIG, Aaliyah Arellano Attending Unavailable Giedlaejandra KOENIG, Aaliyah Arellano Attending Unavailable Allergies Allergy Classification Reported Allergen(s) Allergy Type Date of Onset Reaction(s) Facility (20 sources) Latex; Translations: [latex] Drug allergy 4 Cutaneous eruption (morphologic abnormality), Other: See Comments, Rash [facility] (20 sources) SUMAtriptan; Translations: [sumatriptan] Drug Allergy 7 Other: See Comments, GI intolerance [facility] (1 source) Amitriptyline Drug Allergy [facility] (1 source) NSAIDs Drug allergy (disorder) [facility] (1 source) Plasmin Drug Allergy [facility] (3 sources) Adhesive bandage; Translations: [Adhesive Bandage] Propensity to adverse reactions to substance [facility] [place] (1 source) SUMAtriptan Drug Allergy 8 [facility] Repository (11 sources) Wound Dressing Adhesive Propensity to adverse reactions 4 [facility] Medications Current Medications Medication Drug Class(es) Dates Sig (Normalized) Sig (Original) [id number] 200 actuat albuterol 0.09 mg/actuat metered dose [...] Active Start: 11-13-2023 take 1 capsule by [facility] once daily atomoxetine (Strattera) 80 MG capsule Take 80 mg by mouth Daily 11/13/2023 Active Start: 10-28-2023 take 1 capsule by [facility] once daily in the morning Strattera 60 mg Cap 60 mg = 1 cap(s), Oral, qAM, Refills(s) 0 Start Date: 10/28/23 Status: Ordered Start: 10-28-2023 take 1 capsule by [facility] once daily in the morning Strattera [...] (Ineffective) Start: 10-28-2023 take 1 tablet by [facility] three times daily as needed [...] # 50 tab(s), Refills(s) 1, Pharmacy: [facility], 155, cm, 01/25/21 14:00:00 EDT, Height/Length Dosing, 77.7, kg, 01/25/21 14:00:00 EDT, Weight Dosing Start Date: 01/25/21 Status: Ordered cariprazine 1.5 mg oral capsule (13 sources) Atypical Antipsychotic Start: 10-28-19 take 1 capsule by mouth once daily Vraylar 1.5 MG capsule Take 1 capsule by mouth Daily 12/24/2023 Active dicyclomine hydrochloride 10 mg oral capsule (8 sources) Anticholinergic Start: 03-01-20 take 4 capsules by mouth four times daily as needed for pain Bentyl 10 mg Cap 40 mg, Oral, QID, PRN Pain, # 45 cap(s), Refills(s) 4, Pharmacy: [facility], 155, cm, 03/01/22 15:01:00 EDT, Height/Length [...] Active Start: 11-23-2023 take 1 capsule by [facility] once daily DULoxetine (Cymbalta) 60 MG [...] month 1.68 mL 11 04/06/2024 Active levonorgestrel 0.206574 mg/hr intrauterine system (13 sources) Progestin, Progestin-containin [...] mg oral capsule (15 sources) Start: 01-08-20 24 take 1 capsule [...] Active Start: 06-01-2024 take 1 tablet by antwna th every other day Rimegepant Sulfate (Nurtec) [...] tablet (13 sources) Serotonin Reuptake Inhibitor Start: 024 take [...] Injection, Once PRN Pr ocedure, Starting on Sat01/21/25 at 0852, For 1 dose cetirizine hydrochloride [...] Comment on above: Take 1 capsule by [facility] three times daily for 14 days. [...] on above: Take 1,000 mcg by [facility] once daily. Problems Active Problems [...] 02-06-2024 Chronic Other aftercare (1 source) Other halfway (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 therapy; Translations: [OTH [facility] CURRENT DRUG THERAPY] Onset: 2 Episodic Other [...] discussed. Consent was given by the patient. [facility] Ambulatory Visit Summaryon 0 01-07-2024 Ambulatory Visit [...] Following Appointments Follow Up with ANTONELLA KOENIG, Zack Gardiner, MASTER When: Only if needed Where: [address] [place] [address]- Medications What How Much When Instructions Unchanged [...] choosing us for your care. Ailyn Sanchez [facility] General Surgery Office/Clini c Noteon [...] With When Contact Information ANTONELLA KOENIG, Zack R, MASTER Only if needed [address] [place] [address]- Additional Instructions: Problem List/Past Medical History Ongoing [...] mRNA-1273 vaccine 09/28/2020 Recorded 2023-10-28: TPV20 Normal [facility] Comment on above: Result Comment: Elec tronically Signed By: ANTONELLA KOENIG, Zack Carson\Date and Time Signed: 01/07/24 16:13 EDT Operative Reporton Operative Report [id number] [facility] Pathology Noteon 12-27-2023 Pathology Note [id number] [facility] Varun 12-25-2023 L Specimen: [id number] eceived: 12/25/23 Status: SOUMario Req Num: [id number] Spec Type: Surgical Subm Dr: Zack Berman MD FACS Tissues: A Lipoma (LT BACK) Procedures: HE, Gross/Micro L3 Age/ Patient Sex Location Account Attending Physician Nica Estrada 38/F LABELL [id number] aZck Berman MD FACS SPEC NUM: [id number] RECD: 12/25/23 STATUS: SOUT REQ NUM: [id number] JAVI: 12/25/23-[address]: Zack Berman MD FACS ENTERED: 12/25/[address]: Carlos,Lab SPEC TYPE: Surgical DEPT: MJ THAO ORDERED: [...] no obvious areas of hemorrhage or necrosis. Fire Prevention Inspector sections are submitted A1. RG Clinical history: Lipoma, path pending CPT Codes 76296 -------- -------- Specimen: [id number] Received: 12/25/23 Status: LAITH Mejia Num: [id number] Spec Type: Surgical Subm Dr: Zack Berman MD [facility] Tissues: A Lipoma (LT BACK) Procedures: Eric MAHAJAN/Micro L3 -------- Patient: Nica Estrada [id number] (Continued) -------- Signed (signature on file) Darren Dias MD 12/26/23 1322 Normal [facility] Consent for Procedure/Surger yon 11-12-2023 Consent for Procedure/Surgery [id number] Normal [facility] Consent for Procedure/Surgery [id number] Normal [facility] Ambulatory Visit Summaryon 0 11-11-2023 Ambulatory [...] for choosing us for your care. Normal [facility] Physician Referralon 024 Physician Referral [id number] Normal [facility] PREG HCG QUALon 04-20-2022 , QUAL Negative Normal NEGATIVE [facility] Comment on above: Performed By: #### P REG #### [facility] [address] [place] [address] Dr. Refugio Apple CNOVon 04-12-2022 CNOV Office Visit (PLASMN ) NICA ESTRADA ([id number]) 1985 F Date Time Provider Department 04/12/22 [...] times d (more content not included)... Normal [facility] PREG HCG QUALon 04-06-2022 , QUAL Negative Normal NEGATIVE [facility] Comment on above: Performed By: #### P REG #### [facility] [address] [place] [address] Dr. Refugio Apple CHEMISTRYOrdered By: SYSTEM SYSTEM [...] 11-10-2021 CNOV Office Visit (ELMER ) NICA ESTRADA ([id number]) 1985 F Date Time Provider Department 11/10/21 [...] mcg, Iron 45-60 mg and calcium citrate 9629-2490 mg/day PHYSICAL EXAMINATION: Weight loss: BMI 23.2 [...] ? EGD Ena Mcginnis MD Referring Provider: NEA MCGINNIS [[id number]] Allergies As of Date: 11/10/2021 Noted Allergy [...] JUANITA (a (more content not included)... Normal [facility] MRI CSPINE WO CONon 11-10-19 22 MRI [facility] WO CON EXAMINATION: MRI CSP INE WO [...] by: MANOHAR ALONZO Date: 2021-11-10 14:28 Normal [facility] CNOVon 06-15-2021 CNOV Office Visit (HVN342 ) NICA ESTRADA ([id number]) 1985 F Date Time Provider Department 06/15/21 11:30 AM ENA MCGINNIS [id number] During your visit today, we recorded the [...] call directly to schedule upper endoscopy at [phone]. Please leave a message if you receive the voicemail with your name, birthday, and reason for calling. Please expect a call or Streetcarhart message with appointment information and instructions. What [...] is especially important if you have had fncbe-vdnitvsxz-cxzir surgery in the past. How is an [...] minutes for (more content not included)... Normal [facility] HISTORY PHYSICALon HISTORY PHYSICAL HNO ID: [id number] Author: Kalpana Otero MD Service: General Surgery [...] December 16, 2020 TIME: 9:33 AM Normal [facility] NURSING PROGon 12-16-2020 NURSING PROG HNO ID: [id number] Author: Yashira (Rn) DEEPTHI Nova Service: Nursing [...] None Electronically Signed By: Yashira Nova RN [facility] PT EDon 12-16-2020 PT ED HNO ID: [id number] Author: Manohar (Rn) DEEPTHI Conn Service: Nursing Author Type: Registered Nurse Type: Patient Education Filed: 12/16/2020 11:03 AM Note Text: PATIENT EDUCATION TOPIC: PROCEDURE / SURGERY: Post Procedure Teaching: PATIENT NAME: Nica Estrada PATIENT LOCATION: ENDO POOL/ ENDO POOL READINESS [...] None Electronically Signed By: Manohar Conn RN [facility] NURSING PROGon 10-25-2020 NURSING PROG HNO ID: [id number] Author: Diego Abad RN Service: ? Author Type: Registered Nurse Type: Nursing Progress Note Filed: 10/25/2020 2:09 AM Note Text: Nursing Progress Note Patient Name: Nica Estrada [facility] Daily Note: 2000: Assessment complete see NPR. Pt present w/ nausea Zofran given. Pain 8/10 PRN pain med given. 0100: Nausea concerned by pt. Paged for second like prevention. 0130: Compazine ordered/given. No cough or SOB at this time. Lap sites intact no bruising. No gas passed yet. This note was completed by: Diego Abad [facility] PLAN OF CAREon 10-25-2020 PLAN OF CARE HNO ID: [id number] Author: Davina Bonilla ([employer]) Service: Pharmacy Author Type: ? Type: Plan of Care Filed: 10/25/2020 2:56 PM Note Text: Pharmacy Discharge Medication Service: This patient has elected to receive their discharge prescriptions through the [facility] Bedside Prescription Delivery program. The prescriptions are currently being processed. A follow-up note will be entered once the prescriptions have been filled and delivered to the patient. Please contact me with any questions or updates to the patient's discharge medications. Davina Bonilla ([employer]) DCT Contact Info: [id number] [facility] PLAN OF CARE HNO ID: [id number] Author: Davina Bonilla ([employer]) Service: Pharmacy Author Type: ? Type: Plan of Care Filed: 10/25/2020 2:56 PM Note Text: NEWS LIBRARY DIRECTOR BEDSIDE DELIVERY SURVEY 1. Patient to use [facility] Bedside Delivery - YES Insurance Information as follows: 2. Insurance card on file - YES 3. Credit card for payment - N/A [facility] PLAN CARE HNO ID: [id number] Author: Davina Bonilla ([employer]) Service: Pharmacy Author Type: ? Type: Plan [...] or your Primary Care Provider. Davina Bonilla ([employer]) PAGER: [phone] October 25, 2020 2:56 PM [facility] PROGRESSon 10-25-2020 PROGRESS HNO ID: [id number] Author: Presley Torrez Service: General Surgery Author [...] October 25, 2020 TIME: 7:02 AM Normal [facility] PROGRESS HNO ID: [id number] Author: Juliet Lilly Service: General Surgery Author [...] care Juliet Lilly MD General Surgery PGY1 [facility] PT EDon 10-25-2020 PT ED HNO ID: [id number] Author: Geoff Hector Service: Nutrition Therapy Author Type: Client Relations Associate Type: Patient Education Filed: 10/25/2020 12:04 PM [...] October 25, 2020 TIME: 12:04 PM PAGER: [phone] [facility] ANES POSTPROC EVALon 021 ANES POSTPROC EVAL HNO ID: [id number] Author: Brandon Stoddard Service: Anesthesiology Author Type: Anesthesiologist Type: Anesthesia Postprocedure Evaluation Filed: 10/24/2020 4:58 PM Note Text: POST ANESTHESIA EVALUATION NOTE : 1985 Procedure Summary Date: 10/24/20 Room / Location: [place] [address] / OR Anesthesia Start: 1402 Anesthesia Stop: [...] October 24, 2020 TIME: 4:58 PM CSN: [id number] [facility] ANES PRE-OPon 10-24-2020 ANES PRE-OP HNO ID: [id number] Author: Colin Archer Service: Anesthesiology Author Type: [...] October 24, 2020 TIME: 1:18 PM CSN: [id number] [facility] NURSING PROGon 10-24-2020 NURSING PROG HNO ID: [id number] Author: Sridevi LauRn) DEEPTHI Triana Service: Nursing Author Type: Registered Nurse Type: Nursing Progress Note Filed: 10/24/2020 6:56 PM Note Text: Nursing Progress Note Patient Name: Nica Estrada Patient Location: [place] [address] [address] Transfer Note: Patient transferred into room/unit PK325 in stable condition. Actions taken: No futher actions taken at this time. at bedside. Will continue to monitor and check with patient. This note was completed by: Sridevi Triana RN [facility] NURSING PROG HNO ID: [id number] Author: Gege LauRnYenni Kenney RN Service: Nursing [...] None Electronically Signed By: Gege Kenney RN [facility] OPERATIVE NOon 10-24-2020 OPERATIVE NO HNO ID: [id number] Author: Ena Mcginnis Service: General Surgery Author Type: Physician Type: Operative Report Filed: 10/26/2020 11:07 AM Note Text: [facility] - Operative Report NICA ESTRADA : 1985 AGE: 35. SEX: F PATIENT TYPE: I HOSP SVC: GENS LOCATION: [facility] ATTENDING PHYSICIAN: Ena Mcginnis MD CSN NUMBER: [id number] DATE OF SURGERY/PROCEDURE: 10/24/2020 INCISION/PROCEDURE START TIME: 2:28 PM INCISION CLOSE/PROCEDURE END TIME: 4:31 PM PREOPERATIVE DIAGNOSIS: Morbid obesity, BMI of 42. POSTOPERATIVE DIAGNOSIS: 1. Morbid obesity. 2. Hiatal hernia. SURGEON: Ena Mcginnis MD BOTTLE WASHER: Presley Torrez MD. SURGERY/PROCEDURE: 1. Laparoscopic repair [...] The posterior cruroplasty was completed using 1 jaxuzc-ha-tseqk stitch using silk to tighten the sharri. [...] and created the jejunojejunostomy. Ena Mcginnis MD TA:[id number] Normal [facility] Confirm Blood Typeon 021 ABO/RH(D) Positive Normal [facility] Comment on above: Performed By: #### C ONABO ####[facility] [place] [id number] HISTORY PHYSICALon HISTORY PHYSICAL HNO ID: [id number] Author: Amanda Shane ([place]) Service: ? Author Type: Physician Chief Port Director Type: HANDP Filed: 10/17/2020 2:58 PM Note [...] fevers. 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 No neurological symptoms or problems. Respiratory: asthma, uses rescue about once every few weeks; no current resp sx. Had acute bronchitis last Fall, flared asthma for a while but is better now. Has environmental allergies Cardiovascular: No history of HTN requiring medication, no history of angina, CHF, MA, cardiac surgery or stents. Denies rest pain, gangrene or revascularization/amputation for PVD. No history of cardiovascular symptoms or problems. GI: Positive for GERD, no other GI sx. : No history of dysuria, frequency or incontinence,, stones or chronic kidney disease DIGITAL TECHNICIAN: Negative for abnormal vaginal bleeding, abnormal [...] 2020 TIME: 2:42 PM PAGER/CONTACT #: Normal [facility] Type and SCR (30D)on 021 ABO/RH(D) Positive [facility] Comment on above: Performed By: #### T SCR30 ####[facility] [place], [place] [id number] HOSPon 09-27-2020 [facility] Patient:Nica Estrada MRN: Height:5' 0 (1.524 [...] 44.1 % 10/17/2020 46.0 36.0 Progress Notes ([facility]): Marcella Saldana RN 10/13/2020 2:32 PM [...] Tylenol. 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 I have also discussed medical [...] on recommendations of the Governor of the [facility]. Although we will perform appropriate precautions [...] patient. Ena Mcginnis MD Previous Version Normal [facility] HEPATITIS B SURFACE AB IMMUN ITY, QNon 08-11-2020 HEPATITIS B SURFACE AB IMMUNITY, QN >1000 Normal > OR = 10 [facility] Comment on above: Result Comment: Patient has immunity to hepatitis B virus. For additional information, please refer to http://education.[employer]/faq/QEM087 (This link is being provided for informational/ educational purposes only). Performed By: #### 8 475 #### [facility] [address] [place] [address], [address] [place] [address] Boiler Shop Supervisor: Sixto Chandler MD Vital Signs Date Time Vital Sign Value Performing Clinician Facility 01-21-2025 08:26-0400 Body height 154.9 cm Arminda PRICE Work Phone: [facility] 01-21-2025 08:26-0400 Body mass index (BMI) [Ratio] 32.69 kg/m2 Arminda Helton PA Work Phone: [facility] 01-21-2025 08:26-0400 Body weight 78.47 kg Arminda PRICE Work Phone: [facility] 01-21-2025 08:26-0400 Diastolic blood pressure 82 mm[Hg] Arminda Helton PA Work Phone: [facility] 01-21-2025 08:26-0400 Heart rate 75 /min Arminda Helton PA Work Phone: [facility] 01-21-2025 08:26-0400 Respiratory rate 16 /min Arminda Helton PA Work Phone: [facility] 01-21-2025 08:26-0400 SaO2% (BldA) [Mass fraction] 97 % Arminda Helton PA Work Phone: [facility] 01-21-2025 08:26-0400 Systolic blood pressure 122 mm[Hg] Arminda Helton PA Work Phone: [facility] 01-04-2025 14:48-0400 Body height 157.5 cm Arminda Helton PA Work Phone: [facility] 01-04-2025 14:48-0400 Body mass index (BMI) [Ratio] 30.36 kg/m2 Arminda Helton PA Work Phone: [facility] 01-04-2025 14:48-0400 Body weight 75.3 kg Arminda Helton PA Work Phone: [facility] 01-04-2025 14:48-0400 Diastolic blood pressure 88 mm[Hg] Arminda Helton PA Work Phone: [facility] 01-04-2025 14:48-0400 Heart rate 84 /min Arminda Helton PA Work Phone: [facility] 01-04-2025 14:48-0400 Respiratory rate 16 /min Armindajesus Helton PA Work Phone: [facility] 01-04-2025 14:48-0400 SaO2% (BldA) [Mass fraction] 99 % Arminda Helton PA Work Phone: [facility] 01-04-2025 14:48-0400 Systolic blood pressure 140 mm[Hg] Arminda Helton PA Work Phone: [facility] 09-21-2024 10:03-0500 Body mass index (BMI) [Ratio] 30.8 kg/m2 Godwin Keyes AUTOMOTIVE REFINISHER Work Phone: [facility] 09-21-2024 10:03-0500 Body weight 73.94 kg Godwin Keyes AUTOMOTIVE REFINISHER Work Phone: [facility] 09-21-2024 10:03-0500 Diastolic blood pressure 93 mm[Hg] Godwin Keyes AUTOMOTIVE REFINISHER Work Phone: [facility] 09-21-2024 10:03-0500 Heart rate 86 /min Godwin Keyes AUTOMOTIVE REFINISHER Work Phone: [facility] 09-21-2024 10:03-0500 Systolic blood pressure 142 mm[Hg] Godwin Keyes AUTOMOTIVE REFINISHER Work Phone: [facility] 06-01-2024 09:53-0400 Body height 154.9 cm Godwin Keyes AUTOMOTIVE REFINISHER Work Phone: [facility] 06-01-2024 09:53-0400 Body mass index (BMI) [Ratio] 29.48 kg/m2 Godwin Keyes AUTOMOTIVE REFINISHER Work Phone: [facility] 06-01-2024 09:53-0400 Body weight 70.76 kg Godwin Keyes AUTOMOTIVE REFINISHER Work Phone: [facility] 06-01-2024 09:53-0400 Diastolic blood pressure 108 mm[Hg] Godiwn Keyes AUTOMOTIVE REFINISHER Work Phone: [facility] 06-01-2024 09:53-0400 Heart rate 80 /min Godwin Keyes AUTOMOTIVE REFINISHER Work Phone: [facility] 06-01-2024 09:53-0400 Systolic blood pressure 146 mm[Hg] Godwin Keyes AUTOMOTIVE REFINISHER Work Phone: [facility] 10-16-2022 12:53-0500 Diastolic blood pressure 80 mm[Hg] Otis Marcin [facility] 10-16-2022 12:53-0500 Heart rate 55 /min Otis Marcin [facility] 10-16-2022 12:53-0500 Mean blood pressure 89 mm[Hg] Tois Marcin [facility] 10-16-2022 12:53-0500 Respiratory rate 18 /min Otis Macrin [facility] 10-16-2022 12:53-0500 Systolic blood pressure 108 mm[Hg] Otis Marcin [facility] 08-28-2022 08:52-0500 Heart rate 70 /min Otis Marcin [facility] 08-28-2022 08:52-0500 SaO2% (BldA) [Mass fraction] 100 % Otis Marcin [facility] 08-28-2022 08:52-0500 Respiratory rate 16 /min Otis Marcin [facility] 08-28-2022 08:52-0500 Diastolic blood pressure 80 mm[Hg] Otis Marcin [facility] 08-28-2022 08:52-0500 Mean blood pressure 93 mm[Hg] Otis Marcin [facility] 08-28-2022 08:52-0500 Systolic blood pressure 121 mm[Hg] Otis Marcin [facility] 08-28-2022 08:46-0500 Heart rate 70 /min Otis Marcin [facility] 08-28-2022 08:46-0500 SaO2% (BldA) [Mass fraction] 100 % Otsi Marcin [facility] 08-28-2022 08:46-0500 Body temperature 97.52 [degF] Otis Marcin [facility] 08-28-2022 08:46-0500 Diastolic blood pressure 69 mm[Hg] Otis Marcin [facility] 08-28-2022 08:46-0500 Mean blood pressure 80 mm[Hg] Otis Marcin [facility] 08-28-2022 08:46-0500 Systolic blood pressure 104 mm[Hg] Otis Marcin [facility] 08-28-2022 08:46-0500 Respiratory rate 16 /min Otis Marcin [facility] 08-28-2022 08:41-0500 Diastolic blood pressure 64 mm[Hg] Otis Marcin [facility] 08-28-2022 08:41-0500 Systolic blood pressure 102 mm[Hg] Otis Marcin [facility] 08-28-2022 08:40-0500 Heart rate 71 /min Otis Marcin [facility] 08-28-2022 08:40-0500 Respiratory rate 12 /min Otis Burch [facility] 08-28-2022 08:40-0500 SaO2% (BldA) [Mass fraction] 100 % Otis Marcin [facility] 08-28-2022 08:35-0500 Respiratory rate 12 /min Otis Marcin [facility] 08-28-2022 08:30-0500 Respiratory rate 12 /min Otis Marcin [facility] 08-28-2022 07:17-0500 Mean blood pressure 78 mm[Hg] Otis Marcin [facility] 08-28-2022 07:17-0500 Respiratory rate 16 /min Otis Burch [facility] 08-28-2022 07:17-0500 Body temperature 98.24 [degF] Otis Burch [facility] 04-12-2022 14:47-0400 Body height 152.4 cm Lazara Woods MD Work Phone: [facility] 04-12-2022 14:47-0400 Body temperature 98.91 [degF] Lazara Woods MD Work Phone: [facility] 04-12-2022 14:47-0400 Body weight 55.52 kg Lazara Woods MD Work Phone: [facility] 04-12-2022 14:47-0400 Diastolic blood pressure 92 mm[Hg] Lazara Woods MD Work Phone: [facility] 04-12-2022 14:47-0400 Heart rate 65 /min Lazara Woods MD Work Phone: [facility] 04-12-2022 14:47-0400 Systolic blood pressure 140 mm[Hg] Lazara Woods MD Work Phone: [facility] 03-01-2022 14:59-0400 Diastolic blood pressure 86 mm[Hg] Oral DIETZ [facility] 03-01-2022 14:59-0400 Heart rate 52 /min Oral REINOSOAM [facility] 03-01-2022 14:59-0400 Systolic blood pressure 130 mm[Hg] Oral REINOSOAM [facility] Encounters Encounter Date Encounter Type Care Provider Facility Start: 02-01-2025 End: 02-01-2025 ambulatory Aaliyah Hampton MD Facility: [place] Start: 01-21-2025 End: 01-21-2025 Bamboo flowsheet Arminda PRICE Work Phone: [facility] Start: 01-21-2025 End: 01-21-2025 Bamboo flowsheet Arminda PRICE Work Phone: [facility] Start: 01-21-2025 End: 01-21-2025 Clinical Support Arminda [...] Start: 01-04-2025 End: 01-04-2025 Bamboo flowsheet Arminda Hill PA Work Phone: [facility] [place] Start: 01-04-2025 End: 01-04-2025 Bamboo flowsheet Arminda Helton PA Work Phone: [facility] [place] Start: 10-19-2024 End: 10-19-2024 ambulatory Aaliyah Hampton MD Facility: [place] Start: 09-28-2024 End: 09-28-2024 ambulatory Aaliyah [place] MD Facility:[facility] [place] Start: 09-21-2024 End: 09-21-2024 Bamboo flowsheet Godwin Keyes AUTOMOTIVE REFINISHER Work Phone: [facility] [address] [facility] Start: 09-21-2024 End: 09-21-2024 Bamboo flowsheet Godwin Keyes AUTOMOTIVE REFINISHER Work Phone: [facility] [address] [facility] Start: 09-21-2024 End: 09-21-2024 Office outpatient visit 15 minutes Godwin Keyes AUTOMOTIVE REFINISHER Work Phone: [facility] [place] [address] Comment on above: Migraine without sta tus migrainosus, not intractable, unspecified migraine type (CMS/HCC) (Primary Dx); Myalgia; Cervical spondylosis; Fibromyalgia; Degeneration of intervertebral disc of lumbar region, unspecified whether pain present Start: 09-21-2024 End: 09-21-2024 ambulatory GODWIN KEYES Not Available Start: 06-29-2024 End: 06-29-2024 ambulatory Aaliyah Hampton MD Facility: [place] Start: 06-01-2024 End: 06-01-2024 Bamboo flowsraj Keyes AUTOMOTIVE REFINISHER Work Phone: [facility] Start: 06-01-2024 End: 06-01-2024 Bamboo leanneheet Godwin Keyes AUTOMOTIVE REFINISHER Work Phone: [facility] Start: 06-01-2024 End: 06-01-2024 ambulatory GODWIN KEYES Not Available Start: 06-01-2024 End: 06-01-2024 Office outpatient visit 15 minutes Godwin Keyes AUTOMOTIVE REFINISHER Work Phone: [facility] [address] Comment on above: Migraine without sta tus migrainosus, not intractable, unspecified migraine type (CMS/HCC) (Primary Dx); Chronic tension-type headache, not intractable; Cervicogenic headache; Occipital neuralgia of right side; Myalgia; Cervical spondylosis; Fibromyalgia; DDD (degenerative disc disease), lumbar Start: 04-06-2024 End: 04-06-2024 ambulatory GODWIN KEYES Not Available Start: 02-17-2024 End: 02-17-2024 ambulatory AUDREY VELA Not Available Start: 01-07-2024 End: 01-08-2024 ambulatory Zack BERMAN Facility: [place] Start: 01-07-2024 End: 01-07-2024 Patient encounter procedure Zack BERMAN [facility] Start: 01-03-2024 ambulatory Zack BERMAN Facility:[facility] Start: 12-25-2023 End: 12-25-2023 ambulatory Zack Berman Facility:[facility] Start: 12-25-2023 End: 12-26-2023 ambulatory Zack BERMAN [facility] Work Phone: Start: 12-25-2023 End: 12-25-2023 Departed Referred MD Zack Berman Work Phone: [facility] [place] [facility] Start: 11-11-2023 End: 11-12-2023 ambulatory Zack BERMAN Facility: [facility] Start: 11-11-2023 End: 11-26-2023 Pre-admission assessment Zcak BERMAN [facility] Start: 10-21-2023 ambulatory Zack BERMAN Facility:[facility] Start: 10-16-2022 End: 10-16-2022 Pain Management Otis Burch [facility] Start: 08-28-2022 End: 08-28-2022 Pain Management Otis Burch [facility] Start: 05-04-2022 End: 05-05-[address] [...] Start: 03-01-2022 End: 03-01-2022 Patient encounter procedure Orla DIETZ [facility] Start: 11-10-2021 End: 11-11-2021 ambulatory PETEY HORTENCIA Facility:[facility] Start: 05-24-2021 End: 06-28-[address] DOCTOR BEAR Facility:[facility] Procedures Date Procedure Procedure Detail Performing Clinician Start: 01-21-2025 Injection single/signals officer trigger point 3/> muscles Arminda PRICE Work Phone: Start: 12-25-2023 Excision of lipoma of back Zack BERMAN Start: 08-28-2022 Radiofrequency ablation of medial branch of lumbar nerve using fluoroscopic guidance Otis Burch Comment on above: L4/5 +L5/S1 40-50% relief Start: 10-17-2020 Antibody screen Comment on above: Performed By: #### [id number] ####[place] [id number] [place], [place] [phone] Start: 05-09-2020 Adult depression screening assessment Lazara Woods MD Work Phone: Start: 04-18-2020 Colonoscopy Oral DIETZ Start: 04-18-2020 Esophagogastroduodenoscopy Oral DIETZ section Oral DIETZ section Zack GARVIN Per Cholecystectomy Oral DIETZ Fasciotomy of foot Zack Elidia HOFFMAN Trevor-en-Y gastrojejunostomy Zack BERMAN Plan of Treatment Date Care Activity Detail Author Start: 04-12-2025 End: 04-12-2025 Patient encounter procedure 04/12/2025 9:40 AM EDT Office Visit [facility] [place] [address] [place] [address] Arminda Helton PA [address] [place] [address] [facility] Start: 03-25-2025 End: 03-25-2025 Patient encounter procedure 03/25/2025 9:00 AM EDT Office Visit [facility] [place] [address] [place] [address] Christianne Jiang NP [address] [place], [place] [facility] Start: 01-21-2025 End: 01-21-2025 Clinical Support 01/21/2025 8:20 AM EDT Clinical Support [facility] [place] [address] [place] [address] Arminda Helton PA [address] [place] [address] [facility] Start: 01-04-2025 End: 01-04-2025 Patient encounter procedure 01/04/2025 2:40 PM EDT Office Visit [facility] [address] [place] [address] Lazara Wagner, AUTOMOTIVE REFINISHER [address] [place] [address] [facility] [address] [facility] Start: 01-04-2025 End: 01-04-2026 Inject Trigger Point, 1 or 2 Inject Trigger Point, 1 or 2 Procedures Routine Myalgia Trigger point of neck Neck pain Expected: 01/04/2025 (Approximate), Expires: 01/04/2026 [facility] Work Phone: Comment on above: Expected: 01/04/2025 (Approximate), Expires: 01/04/2026 Start: 09-21-2024 End: 09-21-2024 Patient encounter procedure [facility] [address] [facility] Comment on above: Arrived Start: 05-17-2024 Influenza vaccination Influenza Vacc ine (#1) [facility] Start: 2023 Screening for malign ant neoplasm of breast Mammogram [facility] Start: 05-17-2022 Influenza vaccination INFLUENZA (#1) [facility] Start: 05-09-2021 Adult depression screening assessment DEPRESSION SCREENING [facility] Start: 04-10-2021 COVID-19 VACCINE (3 - Booster for Moderna series) COVID-19 VACCINE (3 - Booster for Moderna series) [facility] Start: 2013 HPV TESTING HPV TESTING [facility] Start: 2013 Screening for malign ant neoplasm of cervix [facility] Start: 02-22-2004 PAP TESTING PAP TESTING [facility] Start: 02-22-2004 Screening for malign ant neoplasm of cervix Pap Smear [facility] Start: 2002 Urine microalbumin profile DTAP,TDAP,TD (1 - Tdap) [facility] Start: 2001 ANNUAL PCP TEAM TRUST OFFICER 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 VISIT ANNUAL PCP TEAM CHRONIC DISEASE VISIT [facility] Start: 2001 BP CONTROLLED (<130/80) BP CONTROLLE D (<130/80) [facility] Start: 2001 HEPATITIS C SCREENING HEPATITIS C SC REENING [facility] Start: 2001 HIV SCREENING HIV SCREENING [facility] Start: 2001 SPIROMETRY SPIROMETRY [facility] Start: 1989 PNEUMOCOCCAL (1 - PCV) PNEUMOCOCCAL (1 - PCV) [facility] Immunizations Immunization Date Immunization Notes Care Provider Fa [facility] 07-14-2024 influenza virus vaccine, unspecified formulation Godwin Keyes NP Work Phone: [facility] 11-11-2020 SARS-CoV-2 (COVID-19 ) mRNA-1273 vaccine Zack BERMAN [facility] Comment on above: Result Comment: 2023: TPV20 09-28-2020 COVID-19 vaccine, full dose (MODERNA) Lazara Woods MD Work Phone: [facility] Comment on above: Result Comment: 2023: TPV20 07-01-2020 influenza, injectable, quadrivalent, preservative free Lazara Woods MD Work Phone: [facility] 07-01-2020 influenza virus vaccine, unspecified formulation Godwin Keyes NP Work Phone: [facility] 06-17-2020 influenza virus vaccine, unspecified formulation Lazara Woods MD Work Phone: [facility] NEGATED: Highlighted row has not occurred!11-11-2023 influenza virus vaccine, unspecified formulation Zack BERMAN [facility] Payers Date Payer Category Payer Self-pay [id number] 2022 Medicaid [id number] 2022 Private Health Insurance [id number] 2022 Unknown [id number] [id number]. [id number] 2022 Unknown [id number] 2018 Medicaid [facility] MEDICAID [facility] PLAN MEDICAID [id number] 2018-Present [phone] [address] [place] [address] Medicaid [id number] 1983 Unknown [id number] 20.1.804339.3.579.2. 593 1983 Unknown [id number] .1.806227.3.579.2. 593 1983 Unknown [id number] .[id number]. 593 1983 Unknown [id number] .1.744904.3.579.2. 593 1983 Unknown [id number] .1.988046.3.579.2. 593 1983 Unknown [id number] .1.736740.3.579.2. 593 1983 Unknown [id number] 11.01.830.1.073787.3.579.2. 593 1983 Unknown [id number] 11.01.830.1.642487.3.579.2. 727 1983 Unknown [id number] 840.1.587660.3.579.2. 727 1983 Unknown [id number] 840.1.362390.3.579.2. 727 1983 Unknown [id number] 840.1.979930.3.579.2. 1259 1983 Unknown [id number] 840.1.864684.3.579.2. 1259 1983 Unknown [id number] 2.16.840.1.874846.3.579.2. 1258 1983 Unknown [id number] 2.16.840.1.842200.3.579.2. 9 1983 Unknown [id number] 2.16.840.1.784073.3.579.2. 1258 1983 Unknown [id number] 2.16.840.1.498752.3.579.2. 9 1983 Unknown [id number] 2.16.840.1.839274.3.579.2. 1983 Unknown [id number] 2.16.840.1.592513.3.579.2. 196 1983 Unknown [id number] 2.16.840.1.549260.3.579.2. 1983 Unknown [id number] 2.16.840.1.460076.3.579.2. 196 1959 Unknown [id number] Unknown [id number] 2.16.840.1.603286.3.579.2. 531 Social History Date Type Detail Facility Start: 03-01-2022 End: 11-11-2023 Tobacco smoking status Never smoked tobacco (finding) [facility] Tobacco smoking status Never [facility] Start: 05-31-2024 End: 01-21-2025 Sex Assigned At Female [facility] Start: 06-27-2017 End: 02-06-2024 Tobacco use and exposure Smokeless tobacco non-user [facility] Start: 04-12-2022 End: 01-21-2025 Alcohol intake Current drinker of alcohol (finding) [facility] Start: 04-12-2022 End: 01-21-2025 Alcohol intake [facility] Start: 01-05-2020 History SDOH Alcohol Frequency 3 [facility] Start: 01-05-2020 History SDOH Alcohol Std Drinks 1 [facility] Start: 10-17-2020 History SDOH Alcohol Comment once a month, 1 drink [facility] Start: 1985 Sex Assigned At Not on file C [facility] Start: 04-01-2022 End: 04-11-2022 Exposure to SARS-CoV-2 (event) Not sure [facility] Start: 1985 Sex Assigned At Female F [facility] Start: 02-06-2024 [facility] History of [...] Assessment Result Facility 10-16-2022 Functional Status N/A [facility] 08-28-2022 Functional Status N/A [facility] Clinical Notes 05-04-2020 to 01-21-2025 DEE Rosales [...] Arminda Helton PA-C documented in this encounter [facility] 01-04-2025 History of Present illness Narrative Images [...] well -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 LUE Strength deltoid , biceps , triceps , wrist extensors , wrist flexor , route 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 RLE Strength illopsoas, quadriceps, tibialis [...] encounter [facility] 09-21-2024 History of Present illness Narrative Images [...] , wrist extensors , wrist flexor , route 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 LUE Strength deltoid , biceps , triceps , wrist extensors , wrist flexor , route 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 RLE Strength illopsoas, quadriceps, tibialis [...] knee reflex 2+. Rodriguez's Sign negative. Coordination: Egrrke-lo-ihio testing is normal Rapid alternating movements are [...] - Continue follow up with pain mangement ([place]) - Medications as above Fibromyalgia History of [...] PLAN: - Continue following with pain management ([place]) Follow up in 3-4 months or sooner [...] , wrist extensors , wrist flexor , route 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 LUE Strength deltoid , biceps , triceps , wrist extensors , wrist flexor , route 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 RLE Strength illopsoas, quadriceps, tibialis [...] knee reflex 2+. Rodriguez's Sign negative. Coordination: Uyopbr-pf-yecb testing is normal Rapid alternating movements are [...] 12/27/2023 13:04:11 With:ANTONELLA KOENIG, MASTER [facility] Address: [address] [place] [address]- When: only if needed [facility] [address] 11-11-2023 Note Chief Complaint consultation for skin [...] Brother. Colon ca (more content not included)... [facility] Comment on above: Result Comment: Elec [...] concerns. Patient agrees with plan of care. [facility]07-28-2022 NoteHNO ID: [id number] Author: ST Rick Service: ? Author Type: Development System Efficiency Manager Type: Progress Notes Filed: 04/12/2022 3:50 PM Note Text: DATE OF PHOTOS: 04/12/2022 Body Part: Breasts, Abdomen, Leg(s) and Arms [facility] 12[facility] 2022 [facility] History of Present illness Narrative* ST Rick - 04/12/2022 3:49 PM EDT DATE OF PHOTOS: 04/12/2022 Body Part: Breasts, Abdomen, Leg(s) and Arms ST Rick April 12, 2022 3:49 PM [facility] NoteHNO ID: [id number] Author: Lazara Woods MD Service: ? Author [...] this visit. ALLERGIES A (more content not included)...[facility]07-27-2022 History of Present illness Narrative* Lazara [...] Past Histories independently gathered by the clinical network diagnostic support specialist and the remaining scribed note [...] weeks. Lazara Woods MD [facility] Evaluation + Plan note Diagnostic [...] Level 04/25/21 * Vitamin B12 Level 04/25/21 [facility]02-25-2022 NoteHNO ID: [id number] Author: Ena Mcginnis MD Service: ? Author [...] mcg, Iron 45-60 mg and calcium citrate 9163-0129 mg/day PHYSICAL EXAMINATION: Weight loss: BMI 23.2 [...] ? Doing great ? EGD Ena Mcginnis [facility]09-30-2021 NoteHNO ID: [id number] Author: Ena Mcginnis MD Service: ? Author [...] mcg, Iron 45-60 mg and calcium citrate 7335-2589 mg/day ? COMPLETE REVIEW OF SYSTEMS Constitutional--Negative [...] which included preparing to see the patient, [id number] patient care and completing clinical documentation.[facility]08-10-2021 Evaluation + Plan note Future Scheduled Tests Laboratory* Copper Level 04/25/21 * Zinc Level 04/25/21 * Vitamin A Level 04/25/21 * Vitamin B1 04/25/21 * Vitamin B6 Lvl 04/25/21 * Vitamin D 25 Hydroxy 04/25/21 * Ferritin 04/25/21 * Folate Level 04/25/21 * Iron Level 04/25/21 * Magnesium Level 04/25/21 * Vitamin B12 Level 04/25/21 [facility] [id number] History of Past illness Narrative* Problem Noted Date Resolved Date Morbid obesity 05/04/2020 01/23/2021 documented as of this encounter (statuses as of 04/12/2022) [facility]08-19-2020 History of Past illness Narrative* Problem Noted Date Resolved Date Morbid obesity 05/04/2020 01/23/2021 documented as of this encounter (statuses as of 04/12/2022) [facility] Future Appointments Appointment Date:09/24/2022 10:30:00 AM Scheduled Provider:Sridevi Goetz PA-C Location:[facility] Appointment Type:[facility] - [facility]FT[facility] Diagnosis Hx of bariatric surgery- Primary Bariatric surgery status Excess skin documented [facility] this encounter [facility] noteNo assessment information availableUniversity [facility]als St[facility] Work Phone: Evaluation note* Diagnosis [...] lumbosacral intervertebral disc documented in this encounter [facility]* Diagnosis Migraine without status migrainosus, not intractable, unspecified migraine type (CMS/HCC)- Primary Myalgia Unspecified myalgia and myositis Cervical spondylosis Cervical spondylosis without myelopathy Fibromyalgia Unspecified myalgia and myositis Degeneration of intervertebral disc of lumbar region, unspecified whether pain present documented in this encounter [facility]* Diagnosis Migraine without status migrainosus, not intractable, unspecified migraine type (CMS/HCC)- Primary Myalgia Unspecified myalgia and myositis Cervical spondylosis Cervical spondylosis without myelopathy Fibromyalgia Unspecified myalgia and myositis Degeneration of intervertebral disc of lumbar region, unspecified whether pain present Trigger point of neck Neck pain Cervicalgia documented in this encounter [facility]* Diagnosis Myalgia- Primary Unspecified myalgia and myositis Neck pain Cervicalgia Cervical spondylosis Cervical spondylosis without myelopathy Trigger point of neck documented in this encounter [facility] Narrative No data available for this section [facility] Hospital Discharge instructions No data available for this section [facility] Progress note No data available for this section [facility] Summary Purpose Family History [...] FoundDocuments on File Type Date Recorded 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 Note HNO ID: [id number] Author: Devonte Zurita Service: Anesthesiology Author Type: Nurse Dexigraph Operator Type: Anesthesia Procedure Notes Filed: 10/24/2020 2:25 PM Note Text: ANESTHESIOLOGY PROCEDURE NOTE Airway General Information Procedure Start Time/Medication Administration: 10/24/2020 2:14 PM Patient location during procedure: OR Timeout Performed Pre-procedure: timeout performed Patient identity confirmed: arm band, care produce production team member and patient Staffing Anesthesiologist: Brandon Stoddard CONFIGURATION MANAGEMENT MANAGER: Pallavi Zurita Performed by: SHAVON Indications [...] (more content not included)... Note HNO ID: [id number] Author: Devonte Zurita Service: Anesthesiology Author Type: Nurse Dexigraph Operator Type: Anesthesia Procedure Notes Filed: 10/24/2020 [...] October 24, 2020 TIME: 2:26 PM CSN: [id number] Note HNO ID: [id number] Author: Douglas Torrez Service: General Surgery Author Type: Physician Type: Brief Op Note Filed: 10/24/2020 4:36 PM Note Text: BRIEF OPERATIVE NOTE [facility] LOG ID: [id number] SURGERY/PROCEDURE DATE: 10/24/2020 INCISION/PROCEDURE START TIME: 2:28 PM INCISION CLOSE/PROCEDURE END TIME: 4:31 PM SURGEON(S) AND BOTTLE WASHER(S): Surgeon(s) and Role: * Ena Mcginnis - Primary * Jarad Clarke (Res) DO Steven - Resident - Assisting * Presley Torrez - Resident - Assisting No Additional Staff PROCEDURES AND ANESTHESIA: Procedure(s) and Anesthesia Type: * LAPAROSCOPIC GASTRIC RESTRICTIVE SURG W/ BYPASS AND TREVOR-EN-Y Procedure Findings Note HNO ID: [id number] Author: Devonte Zurita Service: Anesthesiology Author Type: Nurse Dexigraph Operator Type: Anesthesia Procedure Notes Filed: 10/24/2020 2:25 PM Note Text: ANESTHESIOLOGY PROCEDURE NOTE Airway General Information Procedure Start Time/Medication Administration: 10/24/2020 2:14 PM Patient location during procedure: OR Timeout Performed Pre-procedure: timeout performed Patient identity confirmed: arm band, care produce production team member and patient Staffing Anesthesiologist: Brandon Stoddard CONFIGURATION MANAGEMENT MANAGER: Pallavi Zurita Performed by: SHAVON Indications [...] (more content not included)... Note HNO ID: [id number] Author: Devonte Zurita Service: Anesthesiology Author Type: Nurse Dexigraph Operator Type: Anesthesia Procedure Notes Filed: 10/24/2020 [...] October 24, 2020 TIME: 2:26 PM CSN: [id number] Note HNO ID: [id number] Author: Douglas Torrez Service: General Surgery Author Type: Physician Type: Brief Op Note Filed: 10/24/2020 4:36 PM Note Text: BRIEF OPERATIVE NOTE [facility] LOG ID: [id number] SURGERY/PROCEDURE DATE: 10/24/2020 INCISION/PROCEDURE START TIME: 2:28 PM INCISION CLOSE/PROCEDURE END TIME: 4:31 PM SURGEON(S) AND BOTTLE WASHER(S): Surgeon(s) and Role: * Ena Mcginnis - Primary * Jarad Clarke (ResYenni Harris DO - Resident - Assisting * Presley Torrez - Resident - Assisting No Additional Staff PROCEDURES AND ANESTHESIA: Procedure(s) and Anesthesia Type: * LAPAROSCOPIC GASTRIC RESTRICTIVE SURG W/ BYPASS AND TREVOR-EN-Y Additional Source Comments INFORMATION SOURCE (unrecogn ized section and content) DATE CREATED AUTHOR 08/11/2020 [facility] DATE CREATED AUTHOR AUTHOR'S ORGANIZ ATION 10/18/2020 [facility] DATE CREATED AUTHOR AUTHOR'S ORGANIZ ATION 12/17/2020 [facility] DATE CREATED AUTHOR AUTHOR'S ORGANIZ ATION 04/16/2022 [facility] DATE CREATED AUTHOR AUTHOR'S ORGANIZ ATION 05/10/2022 [facility] DATE CREATED AUTHOR AUTHOR'S ORGANIZ ATION 12/26/2023 [facility] DATE CREATED AUTHOR AUTHOR'S ORGANIZ ATION 01/09/2024 [facility] DATE CREATED AUTHOR AUTHOR'S ORGANIZ ATION 01/23/2025 [facility] EPIC DATE CREATED AUTHOR AUTHOR'S ORGANIZ ATION 02/12/2025 [facility] Care Team (unrecognized sect ion and content) Plastic Press Molder Relationship Specialty Start Date End Date Jose Castano III, DO [address] [place] [address] [place] [id number] PCP - General Family Practice 10/04/20 Plastic Press Molder Relationship Specialty Start Date End Date Jose Castano III, DO [address] [address] PCP - General Family Practice 10/04/20 Team Status: Inactive Member Role Status Dates Zack Berman MD [facility] Attending Provider Active Start: December 25, 2023 End: December 25, 2023 Plastic Press Molder Relationship Specialty Start Date End Date Candis Colindres MD [address] [place] [place] [address] PCP - General Family Medicine 01/30/24 Plastic Press Molder Relationship Specialty Start Date End Date Candis Colindres MD [address] [facility] [place] [address] PCP - General Family Medicine 01/30/24 Plastic Press Molder Relationship Specialty Start Date End Date Candis Colindres MD [address] [place] [phone] PCP - General Family Medicine 01/30/24 Plastic Press Molder Relationship Specialty Start Date End Date Candis Colindres MD [address] [place] [phone] PCP - General Family Medicine 01/30/24 Plastic Press Molder Relationship Specialty Start Date End Date Candis Colindres MD [address] [place] [address] PCP - General Family Medicine 01/21/25 Plastic Press Molder Relationship Specialty Start Date End Date Candis Colindres MD [address] [place] [phone] PCP - General Family Medicine 01/21/25 Source Comments (unrecognize d section and content) In the event this informatio n is protected by the Federal Confidentiality of Alcohol and Drug Abuse Patient Records regulations: The Federal rules restrict any use of the information to criminally investigate or prosecute any alcohol or drug abuse patient.[facility] the event this information is protected by the Federal Confidentiality of Alcohol and Drug Abuse Patient Records regulations: The Federal rules restrict any use of the information to criminally investigate or prosecute any alcohol or drug abuse patient.[facility] Reason for Visit (unrecogniz ed [...] BE BASED ON THE PRIMARY CLINICAL RECORDS. [employer] [facility]. provides no warranty or guarantee of the accuracy or completeness of information in this document.
--- NOTE | 2025-03-04 14:03 | PM.CN ---
Consult Note: HPI Data of Consult Patient: known to practice within the last 3 years Requesting Physician: Miladys Vivas NP Primary Care Provider: PETEY BURNETT Consult Narrative Reason for consult: f/u Narrative: Nica Estrada a pleasant 40 year old female presents for evaluation of chronic low back pain secondary to spondylosis. Pt has failed to benefit from > 6 weeks of provider guided HEP, heat, ice, tylenol, and stretching. Pt cannot take nsaids due to hx of gastric bypass. currently on pregabalin, trazadone, tizanidine, duloxetine, and tylenol without side effects. notes worsening bilateral SIJ pain, Pain today 4/10 increasing to 6/10 in low back without numbness tingling or weakness. recently underwent repeat bilateral L4-5 L5-S1 facet RFA with 70% improvement ongoing in facet mediated low back pain. cc:: CC: Miladys Vivas NP Review of Systems ROS Status of ROS 10 or more systems reviewed and unremarkable except as noted in history and below [facility] Medical History (Updated 10/28/24 @ 07:56 by Miladys Vivas NP) Change in bowel habits ?R19.4 - Change in bowel habit (ICD-10) Prediabetes ?R73.03 - Prediabetes (ICD-10) Obesity ?E66.9 - Obesity, unspecified (ICD-10) Obstructive hydronephrosis Migraines ?G43.909 - Migraine, unspecified, not intractable, without status migrainosus (ICD-10) Lipoma of back ?D17.1 - Benign lipomatous neoplasm of skin and subcutaneous tissue of trunk (ICD-10) Abdominal pain ?R10.9 - Unspecified abdominal pain (ICD-10) Dyssynergia ?R27.8 - Other lack of coordination (ICD-10) Depression ?F32.A - Depression, unspecified (ICD-10) Colon polyps ?K63.5 - Polyp of colon (ICD-10) Chronic constipation ?K59.09 - Other constipation (ICD-10) Asthma ?J45.909 - Unspecified asthma, uncomplicated (ICD-10) Hiatal hernia ?K44.9 - Diaphragmatic hernia without obstruction or gangrene (ICD-10) Fibromyalgia ?M79.7 - Fibromyalgia (ICD-10) Osteoarthritis ?M19.90 - Unspecified osteoarthritis, unspecified site (ICD-10) Low back pain ?M54.50 - Low back pain, unspecified (ICD-10) Anxiety ?F41.9 - Anxiety disorder, unspecified (ICD-10) Hypercholesterolemia ?E78.00 - Pure hypercholesterolemia, unspecified (ICD-10) Hypertension ?I10 - Essential (primary) hypertension (ICD-10) Surgical History H/O gastric bypass ?Z98.84 - Bariatric surgery status (ICD-10) S/P foot surgery, right ?Z98.890 - Other specified postprocedural states (ICD-10) S/P cholecystectomy ?Z90.49 - Acquired absence of other specified parts of digestive tract (ICD-10) S/P ?Z98.891 - History of uterine scar from previous surgery (ICD-10) Family History Other Family history of myocardial infarction Social History Within the past year, how often did you have a drink containing alcohol: 2-4 times a month Smoking status: Never smoker Non-prescribed substance use: denies use 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 Highest level of school completed/degree received: some college, no degree Meds Home Medications and Allergies Home Medications ?Medication ?Instructions ?Recorded ?Confirmed ?Type alprazolam 0.25 mg tablet (Xanax) 0.25 mg PO DAILY PRN anxiety 03/27/23 02/01/25 History duloxetine 30 mg capsule,delayed 90 mg PO QDAY 03/27/23 02/01/25 History release cariprazine 1.5 mg capsule 1.5 mg PO DAILY 08/09/23 02/01/25 History (Vraylar) ondansetron 4 mg disintegrating 4 mg PO DAILY PRN nausea and 08/09/23 02/01/25 History tablet vomiting rimegepant 75 mg disintegrating 75 mg PO DAILY PRN migraine 08/09/23 02/01/25 History tablet (Nurtec ODT) headache trazodone 50 mg tablet 50 mg PO DAILY 08/09/23 02/01/25 History pregabalin 100 mg capsule (Lyrica) 100 mg PO TID #90 caps 09/23/24 02/01/25 Rx tizanidine 4 mg capsule See Rx Instructions .Route 09/23/24 02/01/25 Rx .COMPLEX PRN muscle spasticity #180 caps hydroxyzine pamoate 50 mg capsule mg 02/01/25 History Allergies Allergy/AdvReac Type Severity Reaction Status Date / Time latex Allergy Severe Rash Verified 02/01/25 07:26 amitriptyline AdvReac Mild Nausea Verified 02/01/25 07:26 NSAIDS (Non-Steroidal AdvReac Unknown Verified 02/01/25 07:26 Anti-Inflamma Exam Constitutional Documenting provider has reviewed patient's vital signs: yes Common normals: no apparent distress, oriented x3, healthy appearing, alert and well nourished General appearance: cooperative HENMT Common normals: normocephalic, hearing grossly normal bilaterally and moist oral mucous membranes Head and scalp: normocephalic Eye Common normals: PERRL Pupil: PERRL Neck & C-Spine Common normals: full ROM General: normal visual inspection Chest Common normals: inspection of chest normal Respiratory Common normals: normal respiratory effort, no retractions and no use of accessory muscles Back & Pelvis Lumbar spine/lower back: ROM limited, pain with ROM and straight leg raise negative bilaterally; no lumbar spinal tenderness Sacroiliac joints: SI joint(s) abnormal Other: bilateral sij positive harshal(patricks), gaenslens, thigh thrust, compression test strength 5/5 in BLE sensation intact BLE Neuro Common normals: oriented x3 Sensorium/orientation: alert Psych Common normals: mental status grossly normal, thought process normal, cooperative, affect normal, speech normal and activity/motor behavior normal Speech: normal speech Thought process: normal thought process Results Additional Findings Additional findings: If on a controlled substance or opioids, I have checked an [place]AR[place] report on this patient and there are no aberrancies noted in the prescribing history.??If on a controlled substance or opioid a drug screen was completed and reviewed within the last year, and if there has not been a drug screen completed we ordered one today to monitor higher risk, state monitored pain medication use. As part of providing excellent, safe, comprehensive care, the following was completed at our patient's visit: 1. A medication reconciliation and review to ensure accurate knowledge of current/active medications, including asking our patients to inform us about any atev-kdm-shqsjme medications or herbal remedies/nutritional supplements/alternative remedies. 2. A review to specifically ensure our patients have had annual screening for screening for depression, screening for tobacco use, and screening for unhealthy alcohol use. For concerning screenings had a discussion with the patient, provided patient education, and recommended follow-up with primary care provider when appropriate. If patient noted with a risk of falling, they received education on strength, gait, and balance training to prevent future risk of falling. Portions of this note may have been carried over from the previous visit and updated as appropriate. Please note this office utilizes paper charting in addition to the electronic medical record. A list of current medications, vitals, and PMH is available there as the clinical staff outside of myself do not have access to [employer] charting during the clinic day operations. As part of providing quality comprehensive care the current medications, vitals, and PMH were reviewed in the paper chart. Assessment and Plan Assessment and Plan (1) Sacroiliitis: Assessment and Plan: The patient has had over 3 months of moderate to severe bilateral low back and SIJ pain with functional impairment and inadequate response to conservative care including NSAIDS (unless there are contraindication such as concurrent blood thinners), multiple oral or topical pain medications, and home exercise program/physical therapy.? Patient has completed >6 weeks of guided home exercise program and/or formal physical therapy program without relief of their symptoms.? The Oswestry Disability Index was completed, and the patient scored a 30%.? The patient noted the following:?? moderate to severe pain impacting ADLs, sitting, standing, walking, sleeping, social life, travel? We discussed the risks and benefits of the procedure with the patient, and we are NOT planning on using sedation as outlined in the guidelines from Medicare unless there is a documented reason that sedation would be strongly recommended.?? ?The procedure will be completed with fluoroscopic guidance.? (2) Lumbar spondylosis: Assessment and Plan: 02-01-25 bilateral L4-5 L5-S1 facet RFA >50% improvement ongoing Plan proceed with bilateral SIJ injection, previously found benefit to SIJ injection with >50% improvement for at least 3 months continue current medications continue HEP as tolerated f/u 2 weeks after injection
== END 2025-03-04 08:31 | disposition home or self-care (01) ==
LOC: PM 13:32
PROVIDERS: PCP Physician Assistant; Visit Provider Nurse Practitioner
DX: M46.1 Sacroiliitis, not elsewhere classified (principal); M47.816 Spondylosis without myelopathy or radiculopathy, lumbar region
CPT/HCPCS: G0463

== ENCOUNTER 2025-03-15 10:17 | Day surgery (SDC) | payer OTHER, SELFPAY ==
--- OUTSIDE RECORDS SUMMARY | 2024-11-19 04:15 | XMS_ITS ---
Author Organization [facility] Servic es Address [address] [place] [address] Care Team Providers Care Boring Machine Operator Double End Name Role Phone Jennifer Yokr Primary Care Provider [phone] REASON FOR VISIT 3 month f/u Encounters Encounter Location Date Provider Diagnosis [facility] [address] [place] [address] 11/19/2024 Jennifer York Plan Of Treatment Next Appt Details Provider Name:Jennifer York, 0 05/10/2025 09:30:00 AM, [address] [place], [address], Progress Notes * NORAH ESCAMILLA ADOB:1985 (40 yo F)Acc No.[id number]:11/19/2024 Behavioral Health Patient: NORAH CRUMP Appointment Provider: Mel York :1985 A ge:39 Y S ex:Female Date:11/19/2024 Address:[address] [place], [place] [id number] Subjective: * Chief Complaints: * 1 . 3 month f/u. * Medical History: Objective: * Vitals: Assessment: Plan: * Treatment: * Images: * Electronic signature of CYNTHIA Oliveira on 03/15/2025 at 10:19 AM EDT Sign off status: Pending * Appointment Provider: Mel York Date: 0 11/19/2024 Generated for Katelin rogers/Li/Keaton on: 0 03/15/2025 10:19 AM EDT
--- OUTSIDE RECORDS SUMMARY | 2025-03-15 10:19 | XMS_ITS | Encounter Summary ---
Author Organization [facility] Address [address] [place] [address] Care Team Providers Care Tattoo Identifier Name Role Phone Eyad ROSAS DO Vernon Zuleyka Primary Care Provider Source Comments In the event this information is protected by the Federal Confidentiality of Alcohol and Drug AbusePatient Records regulations: The Federal rules restrict any use of the information to criminally investigate or prosecute any alcohol or drug abuse patient.[facility] Reason for Visit * Reason Comments Refill Request Encounter Details Date Type Department Care Team (Late st Contact Info) Description 03/26/2024 Refill Internal Medicine [address] [place], [place] [phone] [place] [address] [place], [place] [phone] Refill Request Social History Tobacco Use Types [...] N ot on file 10/14/2022 Data from: https://www.neighborhoodatlas.medicine.[facility]/. Last address used for calculation [address] [facility] 10/14/2022 Comments No Sex and Gender [...] on filedocumented in this encounter Care Teams Tattoo Identifier Relationship Specialty Start Date End Date Vernon Castano III, DO [address] [facility] [address] [place] [address] PCP - General Family Medicine 10/04/20 documented as of this encounter
--- OUTSIDE RECORDS SUMMARY | 2025-03-15 10:19 | XMS_ITS | Encounter Summary ---
Author Organization [facility] Address [address] [place] [address] Care Team Providers Care Animal Impersonator Name Role Phone Eyad ROSAS DO, Rolland R Primary Care Provider Source Comments In the event this information is protected by the Federal Confidentiality of Alcohol and Drug AbusePatient Records regulations: The Federal rules restrict any use of the information to criminally investigate or prosecute any alcohol or drug abuse patient.[facility] Encounter Details Date Type Department Care Team (Late st Contact Info) Description 03/21/2023 Patient Msg General Surgery [address] [facility] [address] [place] [address] [place] [address] [address] [facility] [address] [place] [address] Appointment Request Social History Tobacco Use Types [...] N ot on file 10/14/2022 Data from: https://www.neighborhoodatlas.[facility]/. Last address used for calculation [address] [facility] 10/14/2022 Comments No Sex and Gender [...] on filedocumented in this encounter Care Teams Animal Impersonator Relationship Specialty Start Date End Date Vernon Castano III, DO [address] [place] [address] PCP - General Family Medicine 10/04/20 documented as of this encounter
--- OUTSIDE RECORDS SUMMARY | 2025-03-15 10:19 | XMS_ITS | Clinical Summary ---
Author Organization [facility] Address [address] [place] [address] Care Team Providers Care Senior Software Analyst Name Role Phone Candis Colindres MD Primary Care Provider [phone] Allergies Active Allergy Reactions Criticality Noted Date [...] 8:20 AM EDT Clinical Support JUANITA GONZALEZ [facility] [address] [address] Arminda Helton PA Myalgia (Primary Dx); Neck pain; Cervical spondylosis; Trigger point of neck 01/21/2025 Bamboo flowsheet [place] [address]493 [address] [address] Arminda Helton PA 01/04/2025 2:40 PM EDT Office Visit [place] 258303 [address] [address] Arminda Helton PA Migraine without status migrainosus, not intractable, unspecified migraine type (Primary Dx); Myalgia; Cervical spondylosis; Fibromyalgia; Degeneration of intervertebral disc of lumbar region, unspecified whether pain present; Trigger point of neck; Neck pain 01/04/2025 Telephone [place] 8[address]233 [address] [address] Arminda Helton PA triggers 01/04/2025 Bamboo flowsheet [facility] [address] [address] Arminda Helton PA from Last 3 Months [...] Procedure Name Priority Date/Time Associated Diagnosis Comments ND INJECTION SINGLE/BLEACH MACHINE OPERATOR TRIGGER POINT 3/> MUSCLES Routine 01/21/2025 8:52 AM EDT Myalgia Neck pain Cervical spondylosis Trigger point of neck from Last 3 Months Results * ND INJECTION SINGLE/BLEACH MACHINE OPERATOR TRIGGER POINT 3/> MUSCLES (01/21/2025 8:52 AM [...] 3 Months Insurance [employer] Care Teams Senior Software Analyst Relationship Specialty Start Date End Date Candis Colindres MD [address] [place] [phone] PCP - General Family Medicine 01/21/25
--- OUTSIDE RECORDS SUMMARY | 2025-03-15 10:20 | XMS_ITS | Encounter Summary ---
Author Organization [facility] Address [address] [place] [address] Care Team Providers Care Serger Name Role Phone Eyad ROSAS DO, Rolland R Primary Care Provider Source Comments In the event this information is protected by the Federal Confidentiality of Alcohol and Drug AbusePatient Records regulations: The Federal rules restrict any use of the information to criminally investigate or prosecute any alcohol or drug abuse patient.[facility] Encounter Details Date Type Department Care Team (Late st Contact Info) Description 02/09/2021 Patient Msg General Surgery [address] [address] [facility] [address] [place] [address] [place] [address] [address] [facility] [address] [place] [phone] RE: Appointment Request Social History Tobacco Use [...] N ot on file 08/23/2020 Data from: https://www.neighborhoodatlas.[facility]/. Last address used for [...] on filedocumented in this encounter Care Teams Serger Relationship Specialty Start Date End Date Vernon Castano III, DO [address] [place] [address] PCP - General Family Medicine 10/04/20 documented as of this encounter
--- OUTSIDE RECORDS SUMMARY | 2025-03-15 10:20 | XMS_ITS | Encounter Summary ---
Author Organization [facility] Address [address] [place] [address] Care Team Providers Care Postal Delivery Officer Name Role Phone Eyad ROSAS DO, Rolland Zuleyka Primary Care Provider Source Comments In the event this information is protected by the Federal Confidentiality of Alcohol and Drug AbusePatient Records regulations: The Federal rules restrict any use of the information to criminally investigate or prosecute any alcohol or drug abuse patient.[facility] Encounter Details Date Type Department Care Team (Late st Contact Info) Description 12/08/2020 Patient Msg General Surgery [address] [place] [phone] Provider, Ccf Follow Up After Visit with [...] N ot on file 08/23/2020 Data from: https://www.neighborhoodatlas.medicine.[facility]/. Last address used for calculation [...] documented as of this encounter Care Teams Postal Delivery Officer Relationship Specialty Start Date End Date Vernon Castano III, DO [address] [place] [address] PCP - General Family Medicine 10/04/20 documented as of this encounter
--- OUTSIDE RECORDS SUMMARY | 2025-03-15 10:20 | XMS_ITS | Encounter Summary ---
Author Organization [facility] Address [address] [place] [address] Care Team Providers Care Spotter Driver Name Role Phone Eyad ROSAS DO Vernon Gardiner Primary Care Provider Source Comments In the event this information is protected by the Federal Confidentiality of Alcohol and Drug AbusePatient Records regulations: The Federal rules restrict any use of the information to criminally investigate or prosecute any alcohol or drug abuse patient.[facility] Encounter Details Date Type Department Care Team (Late st Contact Info) Description 01/17/2021 Patient Msg General Surgery [address] [place] [address] Provider, Ccf Nutrition Summary Social [...] on file 08/23/2020 Data from: https://www.neighborhoodatlas.medicine.[facility]/. Last address used for calculation Not [...] on filedocumented in this encounter Care Teams Spotter Driver Relationship Specialty Start Date End Date Vernon Castano III, DO [address] [place] [address] PCP - General Family Medicine 10/04/20 documented as of this encounter
--- OUTSIDE RECORDS SUMMARY | 2025-03-15 10:20 | XMS_ITS | Encounter Summary ---
Author Organization [facility] Address [address] [place] [address] Care Team Providers Care Inspector Watch Parts Name Role Phone BernadineCandis Lilia WILLIAMSON Primary Care Provider + Eyad ROSAS DO, Rolland R Primary Care Provider Source Comments In the event this information is protected by the Federal Confidentiality of Alcohol and Drug AbusePatient Records regulations: The Federal rules restrict any use of the information to criminally investigate or prosecute any alcohol or drug abuse patient.[facility] Encounter Details Date Type Department Care Team (Late st Contact Info) Description 08/18/2020 Patient Msg General Surgery [address] [place] [address] Provider, Ccf Postponement of Non Essential Surgery [...] documented as of this encounter Care Teams Inspector Watch Parts Relationship Specialty Start Date End Date Candis Colindres DO [address] [place] [address] PCP - General Family Medicine 06/27/17 10/03/20 Vernon Castano III, DO [address] [address] PCP - General Family Medicine 10/04/20 documented as of this encounter
--- OUTSIDE RECORDS SUMMARY | 2025-03-15 10:20 | XMS_ITS | Encounter Summary ---
Author Organization [facility] Address [address] [place] [address] Care Team Providers Care Credit Product Analyst Name Role Phone BernadineCandis sommers Lilia WILLIAMSON Primary Care Provider + Eyad ROSAS DO, Rolland R Primary Care Provider Source Comments In the event this information is protected by the Federal Confidentiality of Alcohol and Drug AbusePatient Records regulations: The Federal rules restrict any use of the information to criminally investigate or prosecute any alcohol or drug abuse patient.[facility] Encounter Details Date Type Department Care Team (Late st Contact Info) Description 04/21/2020 Get Medical Advice General Surgery [address] [place], [place] [phone] Kaye Godwin, MASH PREPARATORY OPERATOR.[facility] [address] [place] [address] RE: Visit Follow Up Question [...] documented as of this encounter Care Teams Credit Product Analyst Relationship Specialty Start Date End Date Candis Colindres DO [address] [place] [address] PCP - General Family Medicine 06/27/17 10/03/20 Vernon Castano III, DO [address] [place] [address] PCP - General Family Medicine 10/04/20 documented as of this encounter
--- OUTSIDE RECORDS SUMMARY | 2025-03-15 10:20 | XMS_ITS | Encounter Summary ---
Author Organization [facility] Address [address] [place] [address] Care Team Providers Care Machine Repairer Maintenance Name Role Phone Eyad ROSAS DO Vernon Gardiner Primary Care Provider Source Comments In the event this information is protected by the Federal Confidentiality of Alcohol and Drug AbusePatient Records regulations: The Federal rules restrict any use of the information to criminally investigate or prosecute any alcohol or drug abuse patient.[facility] Encounter Details Date Type Department Care Team (Late st Contact Info) Description 04/11/2022 Patient Msg Dermatology and Plastics [place] [address] [place] [address] Provider, Ccf appointment Social History Tobacco Use [...] N ot on file 04/12/2022 Data from: https://www.neighborhoodatlas.medicine.[facility]/. Last address used for calculation [address] [facility] 04/12/2022 Comments No Sex and Gender [...] on filedocumented in this encounter Care Teams Machine Repairer Maintenance Relationship Specialty Start Date End Date Vernon Castano III, DO [address] [place] [address] PCP - General Family Medicine 10/04/20 documented as of this encounter
--- OUTSIDE RECORDS SUMMARY | 2025-03-15 10:20 | XMS_ITS | Encounter Summary ---
Author Organization [facility] Address [address] [place] [address] Care Team Providers Care Yarn Twister Name Role Phone BernadineCandis Lilia WILLIAMSON Primary Care Provider + Eyad ROSAS DO, Rolland R Primary Care Provider Source Comments In the event this information is protected by the Federal Confidentiality of Alcohol and Drug AbusePatient Records regulations: The Federal rules restrict any use of the information to criminally investigate or prosecute any alcohol or drug abuse patient.[facility] Encounter Details Date Type Department Care Team (Late st Contact Info) Description 07/26/2020 Patient Msg General Surgery [address] [place] [address] Provider, Ccf Bariatric Surgery Approval Social History [...] documented as of this encounter Care Teams Yarn Twister Relationship Specialty Start Date End Date Candis Colindres DO [address] [place] [address] PCP - General Family Medicine 06/27/17 10/03/20 Vernon Castano III, DO [address] [address] PCP - General Family Medicine 10/04/20 documented as of this encounter
--- OUTSIDE RECORDS SUMMARY | 2025-03-15 10:20 | XMS_ITS | Encounter Summary ---
Author Organization [facility] Address [address] [place] [address] Care Team Providers Care Etiology Teacher Name Role Phone Eyad ROSAS DO Vernon Zuleyka Primary Care Provider Source Comments In the event this information is protected by the Federal Confidentiality of Alcohol and Drug AbusePatient Records regulations: The Federal rules restrict any use of the information to criminally investigate or prosecute any alcohol or drug abuse patient.[facility] Encounter Details Date Type Department Care Team (Late st Contact Info) Description 06/20/2021 Patient Msg General Surgery [address] [place] [phone] Provider, Ccf EGD Social History Tobacco Use [...] N ot on file 08/23/2020 Data from: https://www.neighborhoodatlas.medicine.[facility]/. Last address used for calculation [...] on filedocumented in this encounter Care Teams Etiology Teacher Relationship Specialty Start Date End Date Vernon Castano III, DO [address] [place] [address] PCP - General Family Medicine 10/04/20 documented as of this encounter
--- OUTSIDE RECORDS SUMMARY | 2025-03-15 10:20 | XMS_ITS | Encounter Summary ---
Author Organization [facility] Address [address] [place] [address] Care Team Providers Care Safety Relief Valve Technician Name Role Phone BernadineCandis Lilia WILLIAMSON Primary Care Provider + Eyad ROSAS DO, Rolland R Primary Care Provider Source Comments In the event this information is protected by the Federal Confidentiality of Alcohol and Drug AbusePatient Records regulations: The Federal rules restrict any use of the information to criminally investigate or prosecute any alcohol or drug abuse patient.[facility] Encounter Details Date Type Department Care Team (Late st Contact Info) Description 08/17/2020 Patient Msg General Surgery [address] [place] [address] Provider, Ccf Schedule Bariatric Surgery Social History [...] documented as of this encounter Care Teams Safety Relief Valve Technician Relationship Specialty Start Date End Date Candis Colindres DO [address] [place] [address] PCP - General Family Medicine 06/27/17 10/03/20 Vernon Castano III, DO [address] [address] PCP - General Family Medicine 10/04/20 documented as of this encounter
--- OUTSIDE RECORDS SUMMARY | 2025-03-15 10:20 | XMS_ITS | Clinical Summary ---
Author Organization [facility] Address [address] [place] [address] Care Team Providers Care Intellectual Property Counsel Name Role Phone Eyad RALPHDO Vernon Zuleyka [...] N ot on file 10/14/2022 Data from: https://www.neighborhoodatlas.medicine.[facility].edu/. Last address used for calculation [address] [place] [address] 10/14/2022 Comments No Sex and Gender Information [...] 06/17/2020, 06/30/2018 Medical Devices Implanted Type Area Flanging Operator Device Identifier Shelf Expiration Date Model / Serial / Lot Implant Implant Uterus Description:Mirena IUD Insurance [employer] MEDICAID [facility] Care Teams Intellectual Property Counsel Relationship Specialty Start Date End Date Vernon Castano III, DO [address] [place] [address] PCP - General Family Medicine 10/04/20
--- OUTSIDE RECORDS SUMMARY | 2025-03-15 10:20 | XMS_ITS | Encounter Summary ---
Author Organization [facility] Address [address] [place] [address] Care Team Providers Care Helper Steel Fabrication Name Role Phone Eyad ROSAS DO Vernon Zuleyka Primary Care Provider Source Comments In the event this information is protected by the Federal Confidentiality of Alcohol and Drug AbusePatient Records regulations: The Federal rules restrict any use of the information to criminally investigate or prosecute any alcohol or drug abuse patient.[facility] Encounter Details Date Type Department Care Team (Late st Contact Info) Description 08/16/2021 Patient Msg General Surgery [address] [place] [phone] Provider, Ccf EGD Social History Tobacco Use [...] N ot on file 08/23/2020 Data from: https://www.neighborhoodatlas.medicine.[facility]/. Last address used for calculation Not [...] on filedocumented in this encounter Care Teams Helper Steel Fabrication Relationship Specialty Start Date End Date Vernon Castano III, DO [address] [facility] [address] [place] [address] PCP - General Family Medicine 10/04/20 documented as of this encounter
--- OUTSIDE RECORDS SUMMARY | 2025-03-15 10:20 | XMS_ITS | Encounter Summary ---
Author Organization [facility] Address [address] [place] [address] Care Team Providers Care Photography Sales Associate Name Role Phone Eyad ROSAS DO, Rolland R Primary Care Provider Source Comments In the event this information is protected by the Federal Confidentiality of Alcohol and Drug AbusePatient Records regulations: The Federal rules restrict any use of the information to criminally investigate or prosecute any alcohol or drug abuse patient.[facility] Encounter Details Date Type Department Care Team (Late st Contact Info) Description 06/12/2021 Abstract General Surgery [address] [facility] [address] [place] [address] [place] [address] [place] [address] Social History Tobacco Use Types Packs/Day Years [...] ot on file 08/23/2020 Data from: https://www.neighborhoodatlas.medicine.[facility]/. Last address used for calculation Not [...] on filedocumented in this encounter Care Teams Photography Sales Associate Relationship Specialty Start Date End Date Vernon Castano III, DO [address] [place] [address] PCP - General Family Medicine 10/04/20 documented as of this encounter
--- OUTSIDE RECORDS SUMMARY | 2025-03-15 10:20 | XMS_ITS | Encounter Summary ---
Author Organization [facility] Address [address] [place] [address] Care Team Providers Care Chief Controller Station Name Role Phone BernadineCandis Lilia WILLIAMSON Primary Care Provider + Eyad ROSAS DO, Rolland R Primary Care Provider Source Comments In the event this information is protected by the Federal Confidentiality of Alcohol and Drug AbusePatient Records regulations: The Federal rules restrict any use of the information to criminally investigate or prosecute any alcohol or drug abuse patient.[facility] Encounter Details Date Type Department Care Team (Late st Contact Info) Description 08/04/2020 Patient Msg General Surgery [address] [place] [address] Provider, Ccf Surgery Scheduling Postponed Social History [...] documented as of this encounter Care Teams Chief Controller Station Relationship Specialty Start Date End Date Candis Colindres DO [address] [place] [address] PCP - General Family Medicine 06/27/17 10/03/20 Vernon Castano III, DO [address] [address] PCP - General Family Medicine 10/04/20 documented as of this encounter
--- OUTSIDE RECORDS SUMMARY | 2025-03-15 10:21 | XMS_ITS | Encounter Summary ---
Author Organization [facility] Address [address] [place] [address] Care Team Providers Care Computerized Mill Mill Recorder Name Role Phone BernadineCandis Lilia WILLIAMSON Primary Care Provider + Eyad ROSAS DO, Rolland R Primary Care Provider Source Comments In the event this information is protected by the Federal Confidentiality of Alcohol and Drug AbusePatient Records regulations: The Federal rules restrict any use of the information to criminally investigate or prosecute any alcohol or drug abuse patient.[facility] Encounter Details Date Type Department Care Team (Late st Contact Info) Description 09/27/2020 Patient Msg General Surgery [address] [place] [phone] Provider, Ccf Bariatric Surgery Pre Op Instructions [...] N ot on file 08/23/2020 Data from: https://www.neighborhoodatlas.medicine.[facility]/. Last address used for calculation Not [...] documented as of this encounter Care Teams Computerized Mill Mill Recorder Relationship Specialty Start Date End Date Candis Colindres DO [address] [place] [address] PCP - General Family Medicine 06/27/17 10/03/20 Vernon Castano III, DO [address] [address] PCP - General Family Medicine 10/04/20 documented as of this encounter
--- OUTSIDE RECORDS SUMMARY | 2025-03-15 10:21 | XMS_ITS | Patient Health Record ---
Author Organization [facility] Address [address] [place] [address] Care Team Providers Care Teacher Music Name Role Phone Jennifer York Primary Care Provider Allergies Allergen (clinical drug ingredient) Drug/Non Drug Allergy documented on EMR Reaction Allergy Type Onset Date Status Imitrex nausea Drug Allergy Active Adhesive Unknown Allergy Active Latex Latex rash [...] 50 MG 1 capsule Orally every 6 hours; Duration: 30 days As needed 01/04/2025 Active Mirena Active Topiramate 50 MG 1 tablet Orally Twic e a day Active DULoxetine HCl 30 MG 1 capsule Orally On ce a day; Duration: 30 days Active Atomoxetine HCl 40 MG [...] Problem Body mass index 30+ - obesity (842036354) BMI 30.0-30.9,adul t (Z68.30) Active confirmed Problem Posttraumatic stress disorder (29184873) Post traumatic stress disorder (F43.10) Active confirmed Problem Recurrent major depression (05660693) Major depressive disorder, recurrent episode with anxious distress (F33.9) Active confirmed Vital Signs Heart Rate 94 /min 08/19/2024 Oximetry 98 % 02/15/2025 Blood pressure diastolic 78 mm Hg 08/19/2024 Height 62 in 02/15/2025 Blood pressure systolic 118 mm Hg 08/19/2024 Weight 168.0 lbs 02/15/2025 BMI 30.72 kg/m2 02/15/2025 Encounters Encounter Location Date Provider Diagnosis [facility] [address] [place] [address] 04/06/2024 [facility] [address] [place] [address] 04/15/2024 Jennifer York Major depressive disorder, recurrent episode with anxious distress F33.9 [facility] [address] [place] [address] 07/17/2024 [place] [address] [place] [address] 11/12/2024 Jennifer York Major depressive disorder, recurrent episode with anxious distress F33.9 [facility] [address] [place] [address] 01/04/2025 [place] [address] [place] [address] 05/19/2024 Jennifer York Major depressive disorder, recurrent episode with anxious distress F33.9 [facility] [address] [place] [address] 08/19/2024 Jennifer York Major depressive disorder, recurrent episode with anxious distress F33.9 and Post traumatic stress disorder F43.10 [facility] [address] [place] [address] 11/16/2024 Jenniefr York Major depressive disorder, recurrent episode with anxious distress F33.9 and Post traumatic stress disorder F43.10 [facility] [address] [place] [address] 02/15/2025 Jennifer York Major depressive disorder, recurrent [...] Treatment Next Appt Details Provider Name:Jennifer York, Toro 05/10/2025 09:30:00 AM, [address] [place], [address], Insurance Providers Payer Name Payer Address Payer Phone Subscriber Number Group Number Insured Name Patient Relationship to Insured Coverage Start Date Coverage End Date [facility] [address] [place] [address] [id number] NORAH ESCAMILLA Self - patient is the insured 3 BH [employer] [place] Medicaid [address] [place] [address] [id number] NORAH ESCAMILLA Self - patient is the insured 3 4 [employer] [facility] [address] [place] [address] [id number] NORAH ESCAMILLA Self - patient is the [...]
--- OUTSIDE RECORDS SUMMARY | 2025-03-15 10:21 | XMS_ITS | Clinical Summary ---
Author Organization [facility] Address [address] [place] [address] Care Team Providers Care Plasma Processing Technician Name Role Phone Unavailable Primary Care Provider [...]
--- OUTSIDE RECORDS SUMMARY | 2025-03-15 10:21 | XMS_ITS | Encounter Summary ---
Author Organization [facility] Address [address] [place] [address] Care Team Providers Care Hand Tier Name Role Phone BernadineCandis sommers Lilia WILLIAMSON Primary Care Provider + Eyad ROSAS DO, Rolland R Primary Care Provider Source Comments In the event this information is protected by the Federal Confidentiality of Alcohol and Drug AbusePatient Records regulations: The Federal rules restrict any use of the information to criminally investigate or prosecute any alcohol or drug abuse patient.[facility] Encounter Details Date Type Department Care Team (Late st Contact Info) Description 05/16/2020 Get Medical Advice General Surgery [address] [place], [place] [phone] Kaye Godwin, WEB SERVICES ARCHITECT.[facility] [address] [place] [address] RE: Test Result Question Social [...] as of this encounter Care Teams Hand Tier Relationship Specialty Start Date End Date Candis Colindres DO [address] [place] [address] PCP - General Family Medicine 06/27/17 10/03/20 Vernon Castano III, DO [address] [address] PCP - General Family Medicine 10/04/20 documented as of this encounter
[2025-03-15 10:49] VITALS: BP 135/94; PULSE 85; TEMP 36.4; O2SAT 100
[2025-03-15] MEDS: BUPIVACAINE HCL 0.25% PF 25 MG/10 ML VIAL 4 ML INJ (11:39)
[2025-03-15] MEDS: IOHEXOL 240 MG/ML - 10 ML VIAL INJ (11:40)
[2025-03-15] MEDS: METHYLPREDNISOLONE ACETATE 40 MG/ML VIAL 80 MG INJ (11:40)
[2025-03-15] MEDS: LIDOCAINE HCL 2% 400 MG/20 ML MDV INJ (11:40)
[2025-03-15 11:41] VITALS: BP 138/83; BP 143/76; PULSE 74; PULSE 76; O2SAT 100
--- NOTE | 2025-03-15 11:44 | W.PM.PROCNOT ---
Date of procedure: 03/15/25 Pre-op diagnosis: Pain due to bilateral sacroiliitis Post-op diagnosis: same as pre-op Procedure: Procedure: Bilateral sacroiliac joint injection Medications: Bupivacaine 0.25% 3cc, depomedrol 40mg x2 After informed consent was obtained, the patient was brought to the medical procedure unit and placed in the prone position, when a timeout was completed verifying correct patient, procedure, site, positioning, implant, and/or special equipment.? The skin overlying the area was prepped and draped in standard sterile fashion using alcohol.? A 25-gauge needle was inserted towards the left sacroiliac joint under direct fluoroscopic imaging.? Needle tip was advanced until the joint was encountered.? We instilled a total of 2 mL of solution.? The same procedure was then completed on the right side.? Postoperatively needles were removed.? The patient tolerated the procedure well without complication.? The patient reported reduction in pain symptoms postoperatively. Anesthesia: Local Surgeon: Aaliyah [place] Pathology: none sent Condition: stable Disposition: no change
== END 2025-03-15 11:45 | disposition home or self-care (01) ==
PROVIDERS: PCP Physician Assistant; Visit Provider Anesthesiology
DX: M46.1 Sacroiliitis, not elsewhere classified (principal)
CPT/HCPCS: 27096; J0665; J1010; Q9966

== ENCOUNTER 2025-03-22 14:21 | Outpatient (OUT) | payer OTHER, SELFPAY ==
--- OUTSIDE RECORDS SUMMARY | 2025-02-01 | XMS_ITS ---
Author Name Auto Generated Organization OHIP Care Team Providers Care Filer Repairer Name Role Phone JOVON MACDONALD Attending Unavailable JOVON MACDONALD Attending Unavailable GODWIN KEYES Attending Unavailable GODWIN KEYES Attending Unavailable GODWIN KEYES Attending Unavailable Berta KOENIG, Aaliyah Arellano Attending Unavailable Berta KOENIG, Andrius Eileen Attending Unavailable Berta KOENIG, Andrius Eileen Attending Unavailable Berta KOENIG, Andrius Eileen Attending Unavailable PROBLEMS No Problem Records Found PROCEDURES No Procedure Records Found RESULTS No Result Records Found ALLERGIES No Allergies Records Found ENCOUNTERS ADMIT/DISCHARGE ACCOUNT NUMBER ADMITTING ENCOUNTER CLASS LOCATION SOURCE 02/01/2025/ 5 [id number] [place] [facility] 01/21/2025/ 5 [id number] Ambulatory Building:[facility] 01/04/2025/ 5 [id number] Ambulatory Building:[facility] 10/19/2024/ 5 [id number] Ambulatory PM [place] [facility] 09/28/2024/ 5 [id number] Ambulatory PM [place] [facility] 09/21/2024/ 5 [id number] Ambulatory Building:[facility] 06/29/2024/ 4 [id number] Ambulatory PM [place] [facility] 06/01/2024/ 4 [id number] Ambulatory Building:[facility] 04/06/2024/ 4 [id number] Ambulatory Building:[facility] PAYERS ENCOUNTER GUARANTOR PAYER SUBSCRIBER SOURCE 02/01/2025 Nica FeldmanenDOB: [place] [address] Primary Insurance:Medical MutualPolicy Number: Effective Date:7022-78-75Xkly Name:JON Nixon [address], [place] [address]NL: Nica Douglas BowenDOB: [id number] [place] [address] [facility] 01/21/2025 NICA BOWENDOB: [place] [address]Eyb: () Primary Insurance:MEDICAL MUTUALPolicy Number: [id number] Date:2022-09-16 NICA BOWENDOB: [id number] [place] [address] [facility] 01/04/2025 NICA BOWENDOB: [place] [phone]: (HP) Primary Insurance:MEDICAL MUTUALPolicy Number: [id number] Date:2022-09-16 NICA BOWENDOB: [id number] [place] [phone] [facility] 10/19/2024 Nica A BowenDOB: [place] [address] Primary Insurance:Medical MutualPolicy Number: Effective Date:4961-01-78Yhtk Name:JON Nixon [address] [place] [phone]: Nica Cole BowenDOB: [id number] [place] [address] [facility] 09/28/2024 Nica A BowenDOB: [place] [address] Primary Insurance:Medical MutualPolicy Number: Effective Date:[id number] Name:JON Nixon [address] [place] [phone]: Nica Cole BowenDOB: [id number] [place] [address] [facility] 09/28/2024 Secondary Insurance[facility]: Effective Date:0269-44-83Gejt Name:JON Nixon [address] [place] [phone]: Nica Cole BowenDOB: [id number] [place] [phone] [facility] 09/21/2024 NICA BOWENDOB: [place] [address]Vlr: (HP) Primary Insurance:MEDICAL MUTUALPolicy Number: [id number] Date:2022-09-16 NICA BOWENDOB: [id number] [place] [address] [facility] 06/29/2024 Nica Cole BowenDOB: [place] [address] Primary Insurance:Medical MutualPolicy Number: Effective Date:[id number] Name:JON O Hussain [address], [place] [address]FI: Nica Cole BowenDOB: [id number] [place] [address] [facility] 06/29/2024 Secondary Insurance:[facility] [place]Policy Number: Effective Date:3807-37-47Exes Name:JON O Hussain [address] [place] [phone]: Nica Cole BowenDOB: [id number] [place] [address] [facility] 06/01/2024 NICA BOWENDOB: [place] [address]Aie: (HP) Primary Insurance:MEDICAL MUTUALPolicy Number: [id number] Date:2022-09-16 NICA BOWENDOB: [id number] [place] [address] [facility] 04/06/2024 NICA BOWENDOB: [place] [address]Dkm: (HP) Primary Insurance:MEDICAL MUTUALPolicy Number: [id number] Date:2022-09-16 NICA BOWENDOB: [id number] [place] [address] [facility]
--- NOTE | 2025-03-22 15:28 | P.CN_ITS ---
Consult Note: HPI Data of Consult Patient: known to practice within the last 3 years Consult date: 03/22/25 Requesting Physician: Aaliyah [place] MD Primary Care Provider: PETEY BURNETT Consult Narrative Reason for consult: low back, leg pain Narrative: 40yof who presents for assessment. states was doing well after recent sij injection and then felt severe pain come on without etiology, but has had worsening low back and leg pain in past several days/weeks. previous lumbar mri showed multilevel stenosis and spondylosis. has attempted a provider directed home exercise course, but has had difficulty completing due to pain. uses lyrica and tylenol. denies adverse med side effects. cc:: CC: Aaliyah [place] MD Review of Systems ROS Status of ROS 10 or more systems reviewed and unremark able except as noted in history and below [facility] Medical History Change in bowel habits �R19.4 - Change in bowel habit (ICD-10) Prediabetes �R73.03 - Prediabetes (ICD-10) Obesity �E66.9 - Obesity, unspecified (ICD-10) Obstructive hydronephrosis Migraines �G43.909 - Migraine, unspecified, not intractable, without status migrainosus (ICD-10) Lipoma of back �D17.1 - Benign lipomatous neoplasm of skin and subcutaneous tissue of trunk (ICD-10) Abdominal pain �R10.9 - Unspecified abdominal pain (ICD-10) Dyssynergia �R27.8 - Other lack of coordination (ICD-10) Depression �F32.A - Depression, unspecified (ICD-10) Colon polyps �K63.5 - Polyp of colon (ICD-10) Chronic constipation �K59.09 - Other constipation (ICD-10) Asthma �J45.909 - Unspecified asthma, uncomplicated (ICD-10) Hiatal hernia �K44.9 - Diaphragmatic hernia without obstruction or gangrene (ICD-10) Fibromyalgia �M79.7 - Fibromyalgia (ICD-10) Osteoarthritis �M19.90 - Unspecified osteoarthritis, unspecified site (ICD-10) Low back pain �M54.50 - Low back pain, unspecified (ICD-10) Anxiety �F41.9 - Anxiety disorder, unspecified (ICD-10) Hypercholesterolemia �E78.00 - Pure hypercholesterolemia, unspecified (ICD-10) Hypertension �I10 - Essential (primary) hypertension (ICD-10) Surgical History H/O gastric bypass �Z98.84 - Bariatric surgery status (ICD-10) S/P foot surgery, right �Z98.890 - Other specified postprocedural states (ICD-10) S/P cholecystectomy �Z90.49 - Acquired absence of other specified parts of digestive tract (ICD- 10) S/P �Z98.891 - History of uterine scar from previous surgery (ICD-10) Family History Other Family history of myocardial infarction Social History Within the past year, how often did you have a drink containing alcohol: 2-4 times a month Smoking status: Never smoker Non-prescribed substance use: denies use 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 Highest level of school completed/degree received: some college, no degree Meds Home Medications and Allergies Home Medications �Medication �Instructions �Recorded �Confirmed �Type alprazolam 0.25 mg tablet (Xanax) 0.25 mg PO DAILY PRN anxiety 03/27/23 03/15/25 History duloxetine 30 mg capsule,delayed 90 mg PO QDAY 3 03/15/25 History release cariprazine 1.5 mg capsule 1.5 mg PO DAILY 08/09/23 History (Vraylar) ondansetron 4 mg disintegrating 4 mg PO DAILY PRN naus ea and 08/09/23 03/15/25 History tablet vomiting rimegepant 75 mg disintegrating 75 mg PO DAILY PRN slick mahi 08/09/23 03/15/25 History tablet (Nurtec ODT) headache trazodone 50 mg tablet 50 mg PO DAILY 08/09/2302/16 History pregabalin 100 mg capsule (Lyrica) 100 mg PO TID #90 c aps 09/23/24 03/15/25 Rx tizanidine 4 mg capsule See Rx Instructions .Route 0 09/23/24 03/15/25 Rx .COMPLEX PRN muscle spasticity #180 caps hydroxyzine pamoate 50 mg capsule mg 02/01/25 History Allergies Allergy/AdvReac Type Severity Reaction Status Date / Time latex Allergy Severe Rash Verified 03/15/25 10:47 amitriptyline AdvReac Mild Nausea Verified 03/15/25 10:47 NSAIDS (Non-Steroidal AdvReac Unknown Verified 03/15/25 10:47 Anti-Inflamma Exam Narrative Exam Narrative: Psych-alert and oriented x 3. Attentive and appropriate, constitutionally normal, displays normal mood and affect per situation. There are no obvious deficits in memory, reasoning, or intellect.� Skin-no obvious rashes, bruising, erythema noted to the patient's area of pain.� Extremities- extremities are warm with minimal edema and palpable pulses. Lumbar-tenderness to palpation noted in the lumbar spine and paraspinal musculature. Pain is elicited with flexion, extension, and lateral rotation of the lumbar spine. Range of motion is diminished with these motions. Facet loading maneuvers are positive.� Strength-noted to be unremarkable with the exception of decreased strength rated at 4 out of 5 in bilateral quadriceps femoris, anterior tibialis. Sensory-no notable sensory deficits in the bilateral lower extremities to touch or pinprick in all dermatomal distributions with the exception to decreased sensation to the bilateral L4, 5 dermatomal distribution Coordination remains intact.� Gait remains non-antalgic. Assessment and Plan Assessment and Plan (1) Lumbar stenosis with neurogenic claudication: Plan 40yof who presents for assessment. failed conservative measures, as noted. given worsening symptoms and leg weakness, will have her undergo lumbar mri without contrast. she is in agreement. meds reviewed. will have her trial celebrex 200mg bid prn. follow up after imaging.
== END 2025-03-22 14:22 | disposition home or self-care (01) ==
LOC: PM 14:22
PROVIDERS: PCP Physician Assistant; Visit Provider Anesthesiology
DX: M48.062 Spinal stenosis, lumbar region with neurogenic claudication (principal)
CPT/HCPCS: G0463

== ENCOUNTER 2025-04-08 12:19 | Outpatient (OUT) | payer OTHER, SELFPAY ==
--- NOTE | 2025-04-08 12:28 | MR_ITS ---
The [address] [address] Patient Name: NORAH ESCAMILLA MRN: [id number] date: 1985 Sex: F Assigned Patient Location: MRI Current Patient Location: MRI Accession/Order Number: [id number] Exam Date: 04/08/2025 15:34 Report Date: 04/08/2025 15:40 At the request of: ANGEL DE LA O MD Procedure: MR lumbar spine wo con MRI lumbar spine performed without contrast INDICATION: Lumbar stenosis, lumbar spine pain radiating into both legs for past 4-5 years COMPARISON: 11/25/2023 In keeping with the prior dictation, there is partial lumbarization of S1 with rudimentary disc at S1-S2. Lumbar vertebral heights and alignment maintained. Mild intervertebral space narrowing L3-L5 and moderate intervertebral space narrowing at L5-S1. Conus medullaris terminates normally at L1-L2. Nerve roots of the cauda equina are unremarkable. Paraspinal soft tissues are unremarkable. T12-L3: No significant disc disease, central canal or neural foraminal narrowing identified. L3-4: Minor broad-based bulge with mild facet arthropathy. There is a dorsal subchondral cysts versus synovial cyst involving the left facet joint. No significant canal or neural from narrowing identified. L4-5: Circumferential disc bulge with broad-based central bulge. Mild canal narrowing. Mild right mild to moderate left neural from narrowing. Nmea-xm-[id number] facet arthropathy. L5-S1: Circumferential disc bulge with left central/subarticular zone extrusion dorsally displacing the traversing left S1 nerve root. There is moderate facet arthropathy. Lstt-xn-ehnntjvg right neural foraminal narrowing and moderate left neural foraminal narrowing identified. MR/MR lumbar spine wo con IMPRESSION: Stable degenerative changes lower spine greatest L5-S1, correlate with possible left S1 radiculopathy. Impression dictated by: Shukri Dumont M.D. 04/08/2025 3:40 PM Dictation Location: [place] [address] Electronically authenticated by: [id number] Y Date: 04/08/2025 15:40
== END 2025-04-08 12:20 | disposition home or self-care (01) ==
LOC: MRI 12:20
PROVIDERS: PCP Physician Assistant; Visit Provider Anesthesiology
DX: M48.062 Spinal stenosis, lumbar region with neurogenic claudication (principal); M51.369 Other intervertebral disc degeneration, lumbar region without mention of lumbar back pain or lower extremity pain
CPT/HCPCS: 72148

== ENCOUNTER 2025-04-21 09:43 | Outpatient (OUT) | payer OTHER, SELFPAY ==
--- OUTSIDE RECORDS SUMMARY | 2024-11-19 04:15 | XMS_ITS ---
Author Organization [facility] Servic es Address [address] [place] [address] Care Team Providers Care Clearance Representative Name Role Phone Jennifer York Primary Care Provider REASON FOR VISIT 3 month f/u Encounters Encounter Location Date Provider Diagnosis [facility] [address] [place] [address] 11/19/2024 Jennifer York Plan Of Treatment Next Appt Details Provider Name:Jennifer York, 0 05/10/2025 09:30:00 AM, [address] [place], [address], Progress Notes * NORAH ESCAMILLA ADOB:1985 (40 yo F)Acc No.[id number]:11/19/2024 Behavioral Health Patient: NORAH CRUMP Appointment Provider: Mel York :1985 A ge:39 Y S ex:Female Date:11/19/2024 Address:[address] [place], [place] [id number] Subjective: * Chief Complaints: * 1 . 3 month f/u. * Medical History: Objective: * Vitals: Assessment: Plan: * Treatment: * Images: * Electronic signature of CYNTHIA Oliveira on 04/21/2025 at 09:45 AM EDT Sign off status: Pending * Appointment Provider: Mel York Date: 0 11/19/2024 Generated for Katelin rogers/Li/Keaton on: 0 04/21/2025 09:45 AM EDT
--- OUTSIDE RECORDS SUMMARY | 2025-04-21 09:45 | XMS_ITS | Encounter Summary ---
Author Organization [facility] Address [address] [place] [address] Care Team Providers Care Oceanography Professor Name Role Phone Eyad ROSAS DO Vernon Zuleyka Primary Care Provider Source Comments In the event this information is protected by the Federal Confidentiality of Alcohol and Drug AbusePatient Records regulations: The Federal rules restrict any use of the information to criminally investigate or prosecute any alcohol or drug abuse patient.[facility] Encounter Details Date Type Department Care Team (Late st Contact Info) Description 06/20/2021 Patient Msg General Surgery [address] [place] [phone] Provider, Ccf EGD Social History Tobacco Use [...] N ot on file 08/23/2020 Data from: https://www.neighborhoodatlas.medicine.[facility]/. Last address used for calculation [...] on filedocumented in this encounter Care Teams Oceanography Professor Relationship Specialty Start Date End Date Vernon Castano III, DO [address] [place] [address] PCP - General Family Medicine 10/04/20 documented as of this encounter
--- OUTSIDE RECORDS SUMMARY | 2025-04-21 09:45 | XMS_ITS | Encounter Summary ---
Author Organization [facility] Address [address] [place] [address] Care Team Providers Care It Desktop Support Specialist Name Role Phone Eyad ROSAS DO Vernon Zuleyka Primary Care Provider Source Comments In the event this information is protected by the Federal Confidentiality of Alcohol and Drug AbusePatient Records regulations: The Federal rules restrict any use of the information to criminally investigate or prosecute any alcohol or drug abuse patient.[facility] Encounter Details Date Type Department Care Team (Late st Contact Info) Description 08/16/2021 Patient Msg General Surgery [address] [place] [phone] Provider, Ccf EGD Social History Tobacco Use [...] N ot on file 08/23/2020 Data from: https://www.neighborhoodatlas.medicine.[facility]/. Last address used for calculation Not on [...] on filedocumented in this encounter Care Teams It Desktop Support Specialist Relationship Specialty Start Date End Date Vernon Castano III, DO [address] [facility] [address] [place] [address] PCP - General Family Medicine 10/04/20 documented as of this encounter
--- OUTSIDE RECORDS SUMMARY | 2025-04-21 09:45 | XMS_ITS | Encounter Summary ---
Author Organization [facility] Address [address] [place] [address] Care Team Providers Care Call Center Rn Name Role Phone Eyad ROSAS DO Vernon Gardiner Primary Care Provider Source Comments In the event this information is protected by the Federal Confidentiality of Alcohol and Drug AbusePatient Records regulations: The Federal rules restrict any use of the information to criminally investigate or prosecute any alcohol or drug abuse patient.[facility] Encounter Details Date Type Department Care Team (Late st Contact Info) Description 01/17/2021 Patient Msg General Surgery [address] [place] [address] Provider, Ccf Nutrition Summary Social [...] ot on file 08/23/2020 Data from: https://www.neighborhoodatlas.medicine.[facility]/. Last address used for calculation Not on [...] on filedocumented in this encounter Care Teams Call Center Rn Relationship Specialty Start Date End Date Vernon Castano III, DO [address] [place] [address] PCP - General Family Medicine 10/04/20 documented as of this encounter
--- OUTSIDE RECORDS SUMMARY | 2025-04-21 09:45 | XMS_ITS | Clinical Summary ---
Author Organization [facility] Address [address] [place] [address] Care Team Providers Care Chief Of Police Name Role Phone Candis Colindres MD Primary Care Provider Allergies Active Allergy Reactions [...] PLAN - Continue following with pain management ([place]) - Continue Lyrica 50 mg 3 times [...] Clinical Support JUANITA GONZALEZ [address] [place] [phone] Arminda Helton PA Myalgia (Primary Dx); Neck pain; Cervical spondylosis; Trigger point of neck 01/21/2025 Bamboo flowsheet JUANITA BARKEREVUE [address] [place] [phone] Arminda Helton PA from Last 3 Months [...] 2013 HPV/Cotest 2013 Mammogram 2023 Influenza Vaccine (#1) 2025 4, 07/01/2020, 06/17/2020, Additional history exists Procedures Procedure Name Priority Date/Time Associated Diagnosis Comments AL INJECTION SINGLE/MEDICAL RESIDENT TRIGGER POINT 3/> MUSCLES Routine 01/21/2025 8:52 AM EDT Myalgia Neck pain Cervical spondylosis Trigger point of neck from Last 3 Months Results * AL INJECTION SINGLE/MEDICAL RESIDENT TRIGGER POINT 3/> MUSCLES (01/21/2025 8:52 AM [...] discussed. Consent was given by the patient. Arminda PRICE IN CLINIC/BEDSIDE ORDERABLES Fin al Result from Last 3 Months Insurance [employer] Care Teams Chief Of Police Relationship Specialty Start Date End Date Candis Colindres MD [address] [place] [phone] PCP - General Family Medicine 01/21/25
--- OUTSIDE RECORDS SUMMARY | 2025-04-21 09:46 | XMS_ITS | Encounter Summary ---
Author Organization [facility] Address [address] [place] [address] Care Team Providers Care Product Managent Intern Name Role Phone Eyad ROSAS DO, Rolland R Primary Care Provider Source Comments In the event this information is protected by the Federal Confidentiality of Alcohol and Drug AbusePatient Records regulations: The Federal rules restrict any use of the information to criminally investigate or prosecute any alcohol or drug abuse patient.[facility] Encounter Details Date Type Department Care Team (Late st Contact Info) Description 12/08/2020 Patient Msg General Surgery [address] [place] [phone] Provider, Ccf Follow Up After Visit with [...] N ot on file 08/23/2020 Data from: https://www.neighborhoodatlas.medicine.[facility]/. Last address used for calculation [...] documented as of this encounter Care Teams Product Managent Intern Relationship Specialty Start Date End Date Vernon Castano III, DO [address] [place] [address] PCP - General Family Medicine 10/04/20 documented as of this encounter
--- OUTSIDE RECORDS SUMMARY | 2025-04-21 09:46 | XMS_ITS | Encounter Summary ---
Author Organization [facility] Address [address] [place] [address] Care Team Providers Care Hotel Desk Clerk Name Role Phone BernadineCandis Lilia WILLIAMSON Primary Care Provider + Eyad ROSAS DO, Rolland R Primary Care Provider Source Comments In the event this information is protected by the Federal Confidentiality of Alcohol and Drug AbusePatient Records regulations: The Federal rules restrict any use of the information to criminally investigate or prosecute any alcohol or drug abuse patient.[facility] Encounter Details Date Type Department Care Team (Late st Contact Info) Description 08/17/2020 Patient Msg General Surgery [address] [place] [address] Provider, Ccf Schedule Bariatric Surgery Social History [...] documented as of this encounter Care Teams Hotel Desk Clerk Relationship Specialty Start Date End Date Candis Colindres DO [address] [place] [address] PCP - General Family Medicine 06/27/17 10/03/20 Vernon Castano III, DO [address] [address] PCP - General Family Medicine 10/04/20 documented as of this encounter
--- OUTSIDE RECORDS SUMMARY | 2025-04-21 09:46 | XMS_ITS | Encounter Summary ---
Author Organization [facility] Address [address] [place] [address] Care Team Providers Care Division Service Manager Name Role Phone BernadineCandis Lilia WILLIAMSON Primary Care Provider + Eyad ROSAS DO, Rolland R Primary Care Provider Source Comments In the event this information is protected by the Federal Confidentiality of Alcohol and Drug AbusePatient Records regulations: The Federal rules restrict any use of the information to criminally investigate or prosecute any alcohol or drug abuse patient.[facility] Encounter Details Date Type Department Care Team (Late st Contact Info) Description 08/04/2020 Patient Msg General Surgery [address] [place] [address] Provider, Ccf Surgery Scheduling Postponed Social History [...] documented as of this encounter Care Teams Division Service Manager Relationship Specialty Start Date End Date Candis Colinders DO [address] [place] [address] PCP - General Family Medicine 06/27/17 10/03/20 Vernon Castano III, DO [address] [address] PCP - General Family Medicine 10/04/20 documented as of this encounter
--- OUTSIDE RECORDS SUMMARY | 2025-04-21 09:46 | XMS_ITS | Patient Health Record ---
Author Organization [facility] Address [address] [place] [address] Care Team Providers Care Claim Examiner Name Role Phone Jennifer York Primary [...] Problem Body mass index 30+ - obesity (095560938) BMI 30.0-30.9,adul t (Z68.30) Active confirmed Problem Posttraumatic stress disorder (93377408) Post traumatic stress disorder (F43.10) Active confirmed Problem Recurrent major depression (99658218) Major depressive disorder, recurrent episode with anxious distress (F33.9) Active confirmed Vital Signs Heart Rate 94 /min 08/19/2024 Oximetry 98 % 02/15/2025 Blood pressure diastolic 78 mm Hg 08/19/2024 Height 62 in 02/15/2025 Blood pressure systolic 118 mm Hg 08/19/2024 Weight 168.0 lbs 02/15/2025 BMI 30.72 kg/m2 02/15/2025 Encounters Encounter Location Date Provider Diagnosis [facility] [address] [place] [address] 07/17/[address] [facility] [address] [place] [address] 11/12/2024 Jennifer York Major depressive disorder, recurrent episode with anxious distress F33.9 [facility] [address] [place] [address] 01/04/2025 Jennifer [place] [address] [place] [address] 05/19/2024 Jennifer York Major depressive disorder, recurrent episode with anxious distress F33.9 [facility] [address] [place] [address] 08/19/2024 Jennifer York Major depressive disorder, recurrent episode with anxious distress F33.9 and Post traumatic stress disorder F43.10 [facility] [address] [place] [address] 11/16/2024 Jennifer York Major depressive disorder, recurrent episode with anxious distress F33.9 and Post traumatic stress disorder F43.10 [facility] [address] [place] [address] 02/15/2025 Jennifer York Major depressive disorder, recurrent [...] Post traumatic stress disorder (ICD-10 - F43.10) Plan Of Treatment Next Appt Details Provider Name:Toro Burciaga 05/10/2025 09:30:00 AM, [address] [place], [address], Insurance Providers Payer Name Payer Address Payer Phone Subscriber Number Group Number Insured Name Patient Relationship to Insured Coverage Start Date Coverage End Date [facility] [address] [place] [phone] [id number] NORAH ESCAMILLA Self - patient is the insured 3 [employer] [place] [employer] [address] [place] [address] [id number] NORAH ESCAMILLA Self - patient is the insured 3 4 [employer] [facility] [address] [place] [address] [id number] NORAH ESCAMILLA Self - patient is the [...]
--- OUTSIDE RECORDS SUMMARY | 2025-04-21 09:46 | XMS_ITS | Encounter Summary ---
Author Organization [facility] Address [address] [place] [address] Care Team Providers Care Leading Firefighter Name Role Phone Eyad ROSAS DO Vernon Gardiner Primary Care Provider Source Comments In the event this information is protected by the Federal Confidentiality of Alcohol and Drug AbusePatient Records regulations: The Federal rules restrict any use of the information to criminally investigate or prosecute any alcohol or drug abuse patient.[facility] Encounter Details Date Type Department Care Team (Late st Contact Info) Description 04/11/2022 Patient Msg Dermatology and [facility] [place] [address] [place] [address] Provider, Ccf appointment Social History Tobacco Use [...] N ot on file 04/12/2022 Data from: https://www.neighborhoodatlas.medicine.[facility]/. Last address used for calculation [address] [facility] 04/12/2022 Comments No Sex and Gender [...] on filedocumented in this encounter Care Teams Leading Firefighter Relationship Specialty Start Date End Date Vernon Castano III, DO [address] [place] [address] PCP - General Family Medicine 10/04/20 documented as of this encounter
--- OUTSIDE RECORDS SUMMARY | 2025-04-21 09:46 | XMS_ITS | Encounter Summary ---
Author Organization [facility] Address [address] [place] [address] Care Team Providers Care Journeyman Tool And Die Maker Name Role Phone Eyad ROSAS DO, Rolland R Primary Care Provider Source Comments In the event this information is protected by the Federal Confidentiality of Alcohol and Drug AbusePatient Records regulations: The Federal rules restrict any use of the information to criminally investigate or prosecute any alcohol or drug abuse patient.[facility] Encounter Details Date Type Department Care Team (Late st Contact Info) Description 02/09/2021 Patient Msg General Surgery [address] [facility] [address] [place] [phone] [place] [address] [address] [facility] [address] [place] [phone] RE: Appointment Request Social History Tobacco Use [...] N ot on file 08/23/2020 Data from: https://www.neighborhoodatlas.[facility]/. Last address used for calculation Not [...] on filedocumented in this encounter Care Teams Journeyman Tool And Die Maker Relationship Specialty Start Date End Date Vernon Castano III, DO [address] [place] [address] PCP - General Family Medicine 10/04/20 documented as of this encounter
--- OUTSIDE RECORDS SUMMARY | 2025-04-21 09:46 | XMS_ITS | Encounter Summary ---
Author Organization [facility] Address [address] [place] [address] Care Team Providers Care Manager Floor Name Role Phone Eyad ROSAS DO, Rolland R Primary Care Provider Source Comments In the event this information is protected by the Federal Confidentiality of Alcohol and Drug AbusePatient Records regulations: The Federal rules restrict any use of the information to criminally investigate or prosecute any alcohol or drug abuse patient.[facility] Encounter Details Date Type Department Care Team (Late st Contact Info) Description 06/12/2021 Abstract General Surgery [address] [facility] [address] [place] [address] [place] [address] [address] [place] [address] Social History Tobacco Use Types Packs/Day Years [...] on file 08/23/2020 Data from: https://www.neighborhoodatlas.medicine.[facility]/. Last address used for calculation Not [...] on filedocumented in this encounter Care Teams Manager Floor Relationship Specialty Start Date End Date Vernon Castano III, DO [address] [place] [address] PCP - General Family Medicine 10/04/20 documented as of this encounter
--- OUTSIDE RECORDS SUMMARY | 2025-04-21 09:46 | XMS_ITS | Encounter Summary ---
Author Organization [facility] Address [address] [place] [address] Care Team Providers Care Fire Equipment Operator Name Role Phone BernadineCandis Lilia WILLIAMSON Primary Care Provider + Eyad ROSAS DO, Rolland R Primary Care Provider Source Comments In the event this information is protected by the Federal Confidentiality of Alcohol and Drug AbusePatient Records regulations: The Federal rules restrict any use of the information to criminally investigate or prosecute any alcohol or drug abuse patient.[facility] Encounter Details Date Type Department Care Team (Late st Contact Info) Description 09/27/2020 Patient Msg General Surgery [address] [place] [phone] Provider, Ccf Bariatric Surgery Pre Op Instructions [...] N ot on file 08/23/2020 Data from: https://www.neighborhoodatlas.medicine.[facility]/. Last address used for calculation [...] documented as of this encounter Care Teams Fire Equipment Operator Relationship Specialty Start Date End Date Candis Colindres DO [address] [place] [address] PCP - General Family Medicine 06/27/17 10/03/20 Vernon Castano III, DO [address] [address] PCP - General Family Medicine 10/04/20 documented as of this encounter
--- OUTSIDE RECORDS SUMMARY | 2025-04-21 09:46 | XMS_ITS | Clinical Summary ---
Author Organization [facility] Address [address] [place] [address] Care Team Providers Care Bilingual Case Manager Name Role Phone Eyad RALPHDO Vernon Zuleyka [...] N ot on file 10/14/2022 Data from: https://www.neighborhoodatlas.medicine.[facility].edu/. Last address used for calculation [address] [place] [address] 10/14/2022 Comments No Sex and Gender Information [...] Health Maintenance Due Date Last Done Comments Anxiety Screening 2001 Depression Screening 2001 HIV Screening 2001 Hepatitis C Screening 2001 DTaP,Tdap,Td Vaccine (1 - Tdap) 2002 Hepatitis B Vaccine (1 of 3 - 19+ 3-dose series) 2002 Cervical Cancer Screening 02/22/2004 Mammogram Screening 2023 Influenza Vaccine (#1) 2025 , 06/17/2020, 06/30/2018 Medical Devices Implanted Type Area Med Spec Device Identifier Shelf Expiration Date Model / Serial / Lot Implant Implant Uterus Description:Mirena IUD Insurance [employer] [place] Care Teams Bilingual Case Manager Relationship Specialty Start Date End Date Vernon Castano III, DO [address] [place] [address] PCP - General Family Medicine 10/04/20
--- OUTSIDE RECORDS SUMMARY | 2025-04-21 09:46 | XMS_ITS | Encounter Summary ---
Author Organization [facility] Address [address] [place] [address] Care Team Providers Care Vp Cardiovascular Service Line Name Role Phone BernadineCandis sommers Lilia WILLIAMSON Primary Care Provider + Eyad ROSAS DO, Rolland R Primary Care Provider Source Comments In the event this information is protected by the Federal Confidentiality of Alcohol and Drug AbusePatient Records regulations: The Federal rules restrict any use of the information to criminally investigate or prosecute any alcohol or drug abuse patient.[facility] Encounter Details Date Type Department Care Team (Late st Contact Info) Description 05/16/2020 Get Medical Advice General Surgery [address] [place], [place] [phone] Kaye Godwin, DIRECTOR SUPPLIER QUALITY.[facility] [address] [place] [address] RE: Test Result Question Social [...] documented as of this encounter Care Teams Vp Cardiovascular Service Line Relationship Specialty Start Date End Date Candis Colindres DO [address] [place] [address] PCP - General Family Medicine 06/27/17 10/03/20 Vernon Castano III, DO [address] [address] PCP - General Family Medicine 10/04/20 documented as of this encounter
--- OUTSIDE RECORDS SUMMARY | 2025-04-21 09:46 | XMS_ITS | Clinical Summary ---
Author Organization [facility] Address [address] [place] [address] Care Team Providers Care Firearms Inspector Name Role Phone Unavailable Primary Care Provider [...]
--- OUTSIDE RECORDS SUMMARY | 2025-04-21 09:46 | XMS_ITS | Encounter Summary ---
Author Organization [facility] Address [address] [place] [address] Care Team Providers Care Regulatory Scientist Name Role Phone BernadineCandis Lilia WILLIAMSON Primary Care Provider + Eyad ROSAS DO, Rolland R Primary Care Provider Source Comments In the event this information is protected by the Federal Confidentiality of Alcohol and Drug AbusePatient Records regulations: The Federal rules restrict any use of the information to criminally investigate or prosecute any alcohol or drug abuse patient.[facility] Encounter Details Date Type Department Care Team (Late st Contact Info) Description 08/18/2020 Patient Msg General Surgery [address] [place] [address] Provider, Ccf Postponement of Non Essential Surgery [...] documented as of this encounter Care Teams Regulatory Scientist Relationship Specialty Start Date End Date Candis Colindres DO [address] [place] [address] PCP - General Family Medicine 06/27/17 10/03/20 Vernon Castano III, DO [address] [address] PCP - General Family Medicine 10/04/20 documented as of this encounter
--- OUTSIDE RECORDS SUMMARY | 2025-04-21 09:46 | XMS_ITS | Encounter Summary ---
Author Organization [facility] Address [address] [place] [address] Care Team Providers Care Alcoholic Counselor Name Role Phone BernadineCandis sommers Lilia WILLIAMSON [...] 04/21/2020 Get Medical Advice General Surgery [address] [place], [place] [phone] Kaye Godwin, MINER OPERATOR.[facility] [address] [place] [address] RE: Visit Follow Up Question [...] documented as of this encounter Care Teams Alcoholic Counselor Relationship Specialty Start Date End Date Candis Colindres DO [address] [place] [address] PCP - General Family Medicine 06/27/17 10/03/20 Vernon Castano III, DO [address] [place] [address] PCP - General Family Medicine 10/04/20 documented as of this encounter
--- OUTSIDE RECORDS SUMMARY | 2025-04-21 09:46 | XMS_ITS | Encounter Summary ---
Author Organization [facility] Address [address] [place] [address] Care Team Providers Care Supervisor Car Installations Name Role Phone BernadineCandis Lilia WILLIAMSON Primary Care Provider + Eyad ROSAS DO, Rolland R Primary Care Provider Source Comments In the event this information is protected by the Federal Confidentiality of Alcohol and Drug AbusePatient Records regulations: The Federal rules restrict any use of the information to criminally investigate or prosecute any alcohol or drug abuse patient.[facility] Encounter Details Date Type Department Care Team (Late st Contact Info) Description 07/26/2020 Patient Msg General Surgery [address] [place] [address] Provider, Ccf Bariatric Surgery Approval Social History [...] documented as of this encounter Care Teams Supervisor Car Installations Relationship Specialty Start Date End Date Candis Colindres DO [address] [place] [address] PCP - General Family Medicine 06/27/17 10/03/20 Vernon Castano III, DO [address] [address] PCP - General Family Medicine 10/04/20 documented as of this encounter
--- NOTE | 2025-04-21 10:02 | PM.CN ---
Consult Note: HPI Data of Consult Patient: known to practice within the last 3 years Consult date: 04/21/25 Requesting Physician: Miladys Vivas NP Primary Care Provider: PETEY BURNETT Consult Narrative Reason for consult: low back pain Narrative: Nica Estrada a pleasant 40 year old female with chronic low back pain >12 months secondary to lumbar ddd, lumbar stenosis, and lumbar spondylosis presents for evaluation. pt noting low back pain aching 4/10 increasing to 10/10 with standing, walking, pushing, pulling, standing, walking, bending, activity. pain improved with reclining, stretching, heat, and sleep. utilizing tylenol prn, lyrica 100mg TID, robaxin 500mg TID, zonegran 100mg BID, and duloxetine 90mg TID without side effects. recently underwent updated lumbar MRI with results below, similar from prior. cc:: CC: Miladys Vivas NP Review of Systems ROS Musculoskeletal Reports: back pain and joint pain PFSH PFSH Medical History Change in bowel habits ?R19.4 - Change in bowel habit (ICD-10) Prediabetes ?R73.03 - Prediabetes (ICD-10) Obesity ?E66.9 - Obesity, unspecified (ICD-10) Obstructive hydronephrosis Migraines ?G43.909 - Migraine, unspecified, not intractable, without status migrainosus (ICD-10) Lipoma of back ?D17.1 - Benign lipomatous neoplasm of skin and subcutaneous tissue of trunk (ICD-10) Abdominal pain ?R10.9 - Unspecified abdominal pain (ICD-10) Dyssynergia ?R27.8 - Other lack of coordination (ICD-10) Depression ?F32.A - Depression, unspecified (ICD-10) Colon polyps ?K63.5 - Polyp of colon (ICD-10) Chronic constipation ?K59.09 - Other constipation (ICD-10) Asthma ?J45.909 - Unspecified asthma, uncomplicated (ICD-10) Hiatal hernia ?K44.9 - Diaphragmatic hernia without obstruction or gangrene (ICD-10) Fibromyalgia ?M79.7 - Fibromyalgia (ICD-10) Osteoarthritis ?M19.90 - Unspecified osteoarthritis, unspecified site (ICD-10) Low back pain ?M54.50 - Low back pain, unspecified (ICD-10) Anxiety ?F41.9 - Anxiety disorder, unspecified (ICD-10) Hypercholesterolemia ?E78.00 - Pure hypercholesterolemia, unspecified (ICD-10) Hypertension ?I10 - Essential (primary) hypertension (ICD-10) Surgical History H/O gastric bypass ?Z98.84 - Bariatric surgery status (ICD-10) S/P foot surgery, right ?Z98.890 - Other specified postprocedural states (ICD-10) S/P cholecystectomy ?Z90.49 - Acquired absence of other specified parts of digestive tract (ICD-10) S/P ?Z98.891 - History of uterine scar from previous surgery (ICD-10) Family History Other Family history of myocardial infarction Social History Within the past year, how often did you have a drink containing alcohol: 2-4 times a month Smoking status: Never smoker Non-prescribed substance use: denies use Previous occupational history: [employer] Highest level of school completed/degree received: some college, no degree Meds Home Medications and Allergies Home Medications ?Medication ?Instructions ?Recorded ?Confirmed ?Type alprazolam 0.25 mg tablet (Xanax) 0.25 mg PO DAILY PRN anxiety 03/27/23 03/15/25 History duloxetine 30 mg capsule,delayed 90 mg PO QDAY 03/27/23 03/15/25 History release cariprazine 1.5 mg capsule 1.5 mg PO DAILY 08/09/23 03/15/25 History (Vraylar) ondansetron 4 mg disintegrating 4 mg PO DAILY PRN nausea and 08/09/23 03/15/25 History tablet vomiting rimegepant 75 mg disintegrating 75 mg PO DAILY PRN migraine 08/09/23 03/15/25 History tablet (Nurtec ODT) headache trazodone 50 mg tablet 50 mg PO DAILY 08/09/23 03/15/25 History pregabalin 100 mg capsule (Lyrica) 100 mg PO TID #90 caps 09/23/24 03/15/25 Rx tizanidine 4 mg capsule See Rx Instructions .Route 09/23/24 03/15/25 Rx .COMPLEX PRN muscle spasticity #180 caps hydroxyzine pamoate 50 mg capsule mg 02/01/25 History Allergies Allergy/AdvReac Type Severity Reaction Status Date / Time latex Allergy Severe Rash Verified 03/15/25 10:47 amitriptyline AdvReac Mild Nausea Verified 03/15/25 10:47 NSAIDS (Non-Steroidal AdvReac Unknown Verified 03/15/25 10:47 Anti-Inflamma Exam Constitutional Documenting provider has reviewed patient's vital signs: yes Common normals: no apparent distress, oriented x3, healthy appearing, alert and well nourished General appearance: cooperative HENMT Common normals: normocephalic, hearing grossly normal bilaterally and moist oral mucous membranes Head and scalp: normocephalic Eye Common normals: PERRL Pupil: PERRL Neck & C-Spine Common normals: full ROM General: normal visual inspection Chest Common normals: inspection of chest normal Respiratory Common normals: normal respiratory effort, no retractions and no use of accessory muscles Back & Pelvis Lumbar spine/lower back: ROM limited, pain with ROM, lumbar spinal tenderness, straight leg raise positive right and straight leg raise positive left Other: decreased sensation bilateral L5/S1 strength 4/5 in BLE Neuro Common normals: oriented x3 Sensorium/orientation: alert Psych Common normals: mental status grossly normal, thought process normal, cooperative, affect normal, speech normal and activity/motor behavior normal Speech: normal speech Thought process: normal thought process Results Imaging lumbar mri: Attestation: I have reviewed the pertinent imaging results. Radiologist's impression: In keeping with the prior dictation, there is partial lumbarization of S1 with rudimentary disc at S1-S2. Lumbar vertebral heights and alignment maintained. Mild intervertebral space narrowing L3-L5 and moderate intervertebral space narrowing at L5-S1. Conus medullaris terminates normally at L1-L2. Nerve roots of the cauda equina are unremarkable. Paraspinal soft tissues are unremarkable. T12-L3: No significant disc disease, central canal or neural foraminal narrowing identified. L3-4: Minor broad-based bulge with mild facet arthropathy. There is a dorsal subchondral cysts versus synovial cyst involving the left facet joint. No significant canal or neural from narrowing identified. L4-5: Circumferential disc bulge with broad-based central bulge. Mild canal narrowing. Mild right mild to moderate left neural from narrowing. [id number] facet arthropathy. L5-S1: Circumferential disc bulge with left central/subarticular zone extrusion dorsally displacing the traversing left S1 nerve root. There is moderate facet arthropathy. Bubv-[id number] right neural foraminal narrowing and moderate left neural foraminal narrowing identified. Additional Findings Additional findings: If on a controlled substance or opioids, I have checked an [place] report on this patient and there are no aberrancies noted in the prescribing history.??If on a controlled substance or opioid a drug screen was completed and reviewed within the last year, and if there has not been a drug screen completed we ordered one today to monitor higher risk, state monitored pain medication use. As part of providing excellent, safe, comprehensive care, the following was completed at our patient's visit: 1. A medication reconciliation and review to ensure accurate knowledge of current/active medications, including asking our patients to inform us about any faee-bgs-rhjslar medications or herbal remedies/nutritional supplements/alternative remedies. 2. A review to specifically ensure our patients have had annual screening for screening for depression, screening for tobacco use, and screening for unhealthy alcohol use. For concerning screenings had a discussion with the patient, provided patient education, and recommended follow-up with primary care provider when appropriate. If patient noted with a risk of falling, they received education on strength, gait, and balance training to prevent future risk of falling. Portions of this note may have been carried over from the previous visit and updated as appropriate. Please note this office utilizes paper charting in addition to the electronic medical record. A list of current medications, vitals, and PMH is available there as the clinical staff outside of myself do not have access to [employer] charting during the clinic day operations. As part of providing quality comprehensive care the current medications, vitals, and PMH were reviewed in the paper chart. Assessment and Plan Assessment and Plan (1) Lumbar stenosis with neurogenic claudication: Assessment and Plan: The patient has had over 3 months of moderate to severe low back pain with functional impairment and inadequate response to conservative care including NSAIDS (unless there are contraindication such as concurrent blood thinners), multiple oral or topical pain medications, and home exercise program/physical therapy.? Patient has completed >6 weeks of guided home exercise program and/or formal physical therapy program without relief of their symptoms.? The Oswestry Disability Index was completed, and the patient scored a 30%.? The patient noted the following:?? moderate to severe pain impacting ADLs, sitting, standing, walking, social life, travel (2) Myalgia: (3) Sacroiliitis: (4) Lumbar spondylosis: Plan repeat bilateral L5-S1 TFESI under fluoroscopy, prior injection provided at least 50% improvement for 3 months continue current medications, goal to decrease zonegran with improvement in symptoms continue HEP as tolerated f/u 2 weeks after injection
== END 2025-04-21 09:44 | disposition home or self-care (01) ==
LOC: PM 09:44
PROVIDERS: PCP Physician Assistant; Visit Provider Nurse Practitioner
DX: M48.062 Spinal stenosis, lumbar region with neurogenic claudication (principal); M79.18 Myalgia, other site; M46.1 Sacroiliitis, not elsewhere classified; M47.816 Spondylosis without myelopathy or radiculopathy, lumbar region
CPT/HCPCS: G0463

== ENCOUNTER 2025-05-13 11:22 | Outpatient (OUT) | payer OTHER, SELFPAY ==
--- OUTSIDE RECORDS SUMMARY | 2024-11-19 04:15 | XMS_ITS ---
Author Organization [facility] Servic es Address [address] [place] [address] Care Team Providers Care Film Touch Up Inspector Name Role Phone Jennifer York Primary Care Provider [phone] REASON FOR VISIT 3 month f/u Encounters Encounter Location Date Provider Diagnosis [facility] [address] [place] [address] 11/19/2024 Jennifer York Plan Of Treatment No Information Progress Notes * NORAH ESCAMILLA ADOB:1985 (40 yo F)Acc No.[id number]:11/19/2024 Behavioral Health Patient: Curtis NORAH YOST Appointment Provider: Mel York :1985 A ge:39 Y S ex:Female Date:11/19/2024 Address:[address] [place], [place] [id number] Subjective: * Chief Complaints: * 1 . 3 month f/u. * Medical History: Objective: * Vitals: Assessment: Plan: * Treatment: * Images: * Electronic signature of CYNTHIA Oliveira on 05/13/2025 at 11:24 AM EDT Sign off status: Pending * Appointment Provider: Mel York Date: 11/19/2024 Generated for Sydneyi ng/Faxing/eTransmitting on: 0 05/13/2025 11:24 AM EDT
--- OUTSIDE RECORDS SUMMARY | 2025-05-10 05:30 | XMS_ITS ---
Author Organization [facility] Serv es Address [address] [place] [address] Care Team Providers Care Fact Checker Name Role Phone Jennifer York Primary Care Provider REASON FOR VISIT 3 month f/u Medications Medication SIG (Take, Route, Frequency, Duration) Notes Start Date End Date Status DULoxetine HCl 60 MG 1 capsule Orally On ce a day; Duration: 30 days Active traZODone HCl 50 MG 1 tablet at bedtime as needed Orally Once a day; Duration: 30 days Active hydrOXYzine Pamoate 50 MG 1 capsule Orally every 6 hours As needed 01/04/2025 Active Verapamil HCl ER 180 MG 1 tablet Orally Once a day Not-Taking Pantoprazole Sodium 20 MG 1 tablet Orally Once a day Not-Taking Lyrica 50 MG 1 capsule Orally thr ee times a day (tid) Active Ventolin HFA 108 (90 Base) MCG/ACT 1 puff as needed Inhalation every 4 hrs Active Propranolol HCl ER 120 MG 1 capsule Orally as directed Not-Taking Ondansetron HCl 4 MG 1 tablet Orally Onc e a day Active Baclofen 10 MG 1 tablet Orally daily Active Atomoxetine HCl 40 MG 1 capsule Orally t wi a day; Duration: 30 days 08/27/2023 11/05/2025 Active Vraylar 1.5 mg one capsule orally daily; Duration: 30 days Active Nurtec 75 MG 1 tablet on the ue and allow to dissolve Orally daily Active Topiramate 50 MG 1 tablet Orally Twic e a day; Duration: 30 days Active Mirena Active DULoxetine HCl 30 MG 1 capsule Orally On ce a day; Duration: 30 days Active Vital Signs Height 62 in 05/10/2025 Blood pressure systolic 127 mm Hg 05/10/20 Blood pressure diastolic 84 mm Hg 025 Oximetry 99 % 05/10/2025 Heart Rate 106 /min 05/10/2025 Encounters Encounter Location Date Provider Diagnosis [facility] [address] [place] [address] 05/10/2025 Jennifer York Major depressive disorder, recurrent episode with anxious distress F33.9 and Post traumatic stress disorder F43.10 Assessments Encounter Date Diagnosis (ICD Code) Assessment Notes Treatment Notes Treatment Clinical Notes Section Notes 05/10/2025 Major depressive disorder, recurrent episode with anxious [...] contact information was provided to the patient/guardian. 05/10/2025 Post traumatic stress disorder (ICD-10 - F43.10) Plan Of Treatment Medication Medication Name Sig Start Date Stop Date Notes DULoxetine HCl 60 MG 1 capsule Orally On ce a day; Duration: 30 days traZODone HCl 50 MG 1 tablet at bedtime as needed Orally Once a day; Duration: 30 days hydrOXYzine Pamoate 50 MG 1 capsule Orally every 6 hours 0 01/04/2025 Atomoxetine HCl 40 MG 1 capsule Orally t wice a day; Duration: 30 days 08/27/2023 11/05/2025 Vraylar 1.5 mg one capsule orally d aily; Duration: 30 days Topiramate 50 MG 1 tablet Orally Twic e a day; Duration: 30 days DULoxetine HCl 30 MG 1 capsule Orally On ce a day; Duration: 30 days Treatment Notes Assessment Notes Major depressive disorder, r ecurrent episode with anxious distress Recommended treatment is: _ FDA approved medication [...] contact information was provided to the patient/guardian. Next Appt Details Follow Up: 6 Months, Reason: Progress Notes * NORAH ESCAMILLA ADOB:1985 (40 yo F)Acc No.[id number]:05/10/2025 Behavioral Health Patient: NORAH CRUMP A Appointment Provider: Mel York :1985 Douglas ge:40 Y S ex:Female Date:05/10/2025 Address:[address] [place], [place] [id number] Subjective: * Chief Complaints: * 3 month f/u * HPI: C onstitutional: Patient here for follow up visit. Patient states she is doing well on current medication regimen. She denies any side effects from medications. refills sent? Depressive symptoms that have significantly improved include: 1. having more interest in daily activites and interests 2. stabilized diet 3. better sleep hygiene 4. more energy during the day 5. able to focus on tasks, less inattention 6. less feelings of worthlessness and inappropriate guilt 7. decreased thoughts of suicidal ideations. . . Denies suicidal or homicidal ideation or plan. No morbid thoughts. Interpersonal issues discussed. . Support provided. . * ROS: C ONSTITUTIONAL: No fever, chills, sweats, weakness SKIN: No jaundice, rash, lesions, petechiae GASTROINTESTINAL: No nausea, vomiting, diarrhea, or GI bleeding MUSCULOSKELETAL: No muscle pain or weakness NEUROLOGIC: No headache, dizziness, numbness, or weakness . * Medical History: * Surgical History: * Hospitalization/Major Diagno stic Procedure: * Medications: T akingMirena Nurtec 75 MG Tablet Disintegrating 1 tablet on the tongue and allow to dissolve Orally daily Baclofen 10 MG Tablet 1 tablet Orally daily Ondansetron HCl 4 MG Tablet 1 tablet Orally Once a day Ventolin HFA 108 (90 Base) MCG/ACT Aerosol Solution 1 puff as needed Inhalation every 4 hrs Lyrica 50 MG Capsule 1 capsule Orally three times a day (tid) hydrOXYzine Pamoate 50 MG Capsule 1 capsule Orally every 6 hours As neededtraZODone HCl 50 MG Tablet 1 tablet at bedtime as needed Orally Once a day DULoxetine HCl 60 MG Capsule Delayed Release Particles 1 capsule Orally Once a day DULoxetine HCl 30 MG Capsule Delayed Release Particles 1 capsule Orally Once a day Vraylar 1.5 mg Capsule one capsule orally daily Atomoxetine HCl 40 MG Capsule 1 capsule in the morning Orally twice daily Topiramate 50 MG Tablet 1 tablet Orally Twice a day Taking Mirena Taking Nurtec 75 MG Tablet Disintegrating 1 tablet on the tongue and allow to dissolve Orally daily Taking Baclofen 10 MG Tablet 1 tablet Orally daily Taking Ondansetron HCl 4 MG Tablet 1 tablet Orally Once a day Taking Ventolin HFA 108 (90 Base) MCG/ACT Aerosol Solution 1 puff as needed Inhalation every 4 hrs Taking Lyrica 50 MG Capsule 1 capsule Orally three times a day (tid) Taking hydrOXYzine Pamoate 50 MG Capsule 1 capsule Orally every 6 hours As neededTaking traZODone HCl 50 MG Tablet 1 tablet at bedtime as needed Orally Once a day Taking DULoxetine HCl 60 MG Capsule Delayed Release Particles 1 capsule Orally Once a day Taking DULoxetine HCl 30 MG Capsule Delayed Release Particles 1 capsule Orally Once a day Taking Vraylar 1.5 mg Capsule one capsule orally daily Taking Atomoxetine HCl 40 MG Capsule 1 capsule in the morning Orally twice daily Taking Topiramate 50 MG Tablet 1 tablet Orally Twice a day Not-Taking/PRNPropranolol HCl ER 120 MG Capsule Extended Release 24 Hour 1 capsule Orally as directed Pantoprazole Sodium 20 MG Tablet Delayed Release 1 tablet Orally Once a day Verapamil HCl ER 180 MG Tablet Extended Release 1 tablet Orally Once a day Not-Taking/PRN Propranolol HCl ER 120 MG Capsule Extended Release 24 Hour 1 capsule Orally as directed Not-Taking/PRN Pantoprazole Sodium 20 MG Tablet Delayed Release 1 tablet Orally Once a day Not-Taking/PRN Verapamil HCl ER 180 MG Tablet Extended Release 1 tablet Orally Once a day Objective: * Vitals: H t: 62 in, BP: 127/84 mm Hg, SaO2:99%, HR: 106 /min. * Examination: G eneral Examination: . MENTAL STATUS EXAM: . Appearance: Appropriately dressed and groomed, good eye contact, cooperative, pleasant Behavior/Motor Activity: Normal Gait/Station: Within normal limits BH Speech: Normal Mood: Good Affect: Full Thought processes/Associations: Logical and goal directed Thought Content: Non-psychotic Cognition/Attention/Memory/Concentration: Alert and oriented x 4; grossly intact attention; memory-recent/remote judged adequate by interviewer Insight: Good Judgement: Good BH language: Within normal limits Fund of Knowledge: Adequate . . . AIMS EXAM: . AIMS Muscles of Facial Expression: None AIMS Lips and Perioral Area: None AIMS Jaw Area Involuntary Movements: None AIMS Tongue Involuntary Movements: None AIMS Upper Arms, Wrists, Hands, Fingers: None AIMS Lower Legs, Knees, Ankles, Toes: None AIMS Overall Abnormal Movement Severity: None AIMS Incapacitation Abnormal Movement: None AIMS Self Awareness of Abnormal Movement: Aware, None noted AIMS Current Teeth, Denture Problems: No AIMS Movements Disappear in Sleep: No . . Assessment: * Assessment: 1. M ajor depressive disorder, recurrent episode with anxious distress - F33.9 (Primary) ? 2 . P ost traumatic stress disorder - F43.10 Plan: * Treatment: * Procedure Codes: 3 079F DIAST BP 80-89 MM [id number] SYST BP LT 130 MM HG * Follow Up: 6 Months * Images: * Sign off status: Completed true * Appointment Provider: Mel York Date: 05/10/2025 Generated for Katelin rogers/Li/Keaton on: 05/13/2025 11:24 AM EDT History and Physical Notes * Examination Category Sub-Category Detail Notes Category Not es General Examination . MENTAL STATUS EXAM: . Appearance: Appropriately dressed and groomed, good eye contact, cooperative, pleasant Behavior/Motor Activity: Normal Gait/Station: Within normal limits BH Speech: Normal Mood: Good Affect: Full Thought processes/Associations: Logical and goal directed Thought Content: Non-psychotic Cognition/Attention/Memory/Con centration: Alert and oriented x 4; grossly intact attention; memory-recent/remote judged adequate by interviewer Insight: Good Judgement: Good BH language: Within normal limits Fund of Knowledge: Adequate . . . AIMS EXAM: . AIMS Muscles of Facial Expression: None AIMS Lips and Perioral Area: None AIMS Jaw Area Involuntary Movements: None AIMS Tongue Involuntary Movements: None AIMS Upper Arms, Wrists, Hands, Fingers: None AIMS Lower Legs, Knees, Ankles, Toes: None AIMS Overall Abnormal Movement Severity: None AIMS Incapacitation Abnormal Movement: None AIMS Self Awareness of Abnormal Movement: Aware, None noted AIMS Current Teeth, Denture Problems: No AIMS Movements Disappear in Sleep: No .
--- OUTSIDE RECORDS SUMMARY | 2025-05-13 11:25 | XMS_ITS | Clinical Summary ---
Author Organization [facility] Address [address] [place] [address] Care Team Providers Care Pricing Actuary Name Role Phone Candis Colindres MD Primary Care Provider [phone] Allergies Active Allergy Reactions Criticality Noted Date [...] PLAN - Continue following with pain management ([place]) - Continue Lyrica 50 mg 3 times [...] - Continue follow up with pain mangement ([place]) - Medications as above Fibromyalgia 05/31/2024 Overview [...] 02/06/2024 Hypercholesterolemia 02/06/2024 Prediabetes 02/06/2024 Osteoarthritis 02/06/2024 Family History Medical History Relation Name Comments [...] 2013 Mammogram 2023 Influenza Vaccine (#1) 2025 , 07/01/2020, 06/17/2020, Additional history exists Insurance [employer] Care Teams Pricing Actuary Relationship Specialty Start Date End Date Candis Colindres MD [address] [id number] PCP - General Family Medicine 01/21/25
--- OUTSIDE RECORDS SUMMARY | 2025-05-13 11:25 | XMS_ITS | Patient Health Record ---
Author Organization [facility] es Address [address] [place] [address] Care Team Providers Care Painter Drum Name Role Phone Jennifer York Primary Care Provider [phone] Allergies Allergen (clinical drug ingredient) Drug/Non Drug [...] every 6 hours As needed 01/04/2025 Active Atomoxetine HCl 40 MG 1 capsule Orally t wice a day; Duration: 30 days 08/27/2023 11/05/2025 Active Verapamil HCl ER 180 MG 1 tablet Orally Once a day Not-Taking Vraylar 1.5 mg one capsule orally daily; Duration: 30 days Active Pantoprazole Sodium 20 MG 1 tablet Orally Once a day Not-Taking DULoxetine HCl 30 MG 1 capsule Orally On ce a day; Duration: 30 days Active Propranolol HCl ER 120 MG 1 capsule Orally as directed Not-Taking Ondansetron HCl 4 MG 1 tablet Orally Onc e a day Active Baclofen 10 MG 1 tablet Orally daily Active Nurtec 75 MG 1 tablet on the tong ue and allow to dissolve Orally daily Active Topiramate 50 MG 1 tablet Orally Twic e a day; Duration: 30 days Active Mirena Active Lyrica 50 MG 1 capsule Orally thr ee times a day (tid) Active Ventolin HFA 108 (90 Base) MCG/ACT 1 puff as needed Inhalation every 4 hrs Active Social History Tobacco Use: Social History [...] Problem Body mass index 30+ - obesity (955564524) BMI 30.0-30.9,adul t (Z68.30) Active confirmed Problem Posttraumatic stress disorder (50442950) Post traumatic stress disorder (F43.10) Active confirmed Problem Recurrent major depression (47828816) Major depressive disorder, recurrent episode with anxious distress (F33.9) Active confirmed Vital Signs Heart Rate 106 /min 05/10/2025 Oximetry 99 % 05/10/2025 Blood pressure diastolic 84 mm Hg 05/10/2025 Height 62 in 05/10/2025 Blood pressure systolic 127 mm Hg 05/10/2025 Weight 168.0 lbs 02/15/2025 BMI 30.72 kg/m2 02/15/2025 Encounters Encounter Location Date Provider Diagnosis [facility] [address] [place] [address] 07/17/2024 Jennifer York [facility] [address] [place] [address] 11/12/2024 Jennifer York Major depressive disorder, recurrent episode with anxious distress F33.9 [facility] [address] [place] [address] 01/04/2025 Jennifer York [place] [address] [place] [address] 05/19/2024 Jennifer York Major depressive disorder, recurrent episode with anxious distress F33.9 [facility] [address] [place] [address] 08/19/2024 Jennifer York Major depressive disorder, recurrent episode with anxious distress F33.9 and Post traumatic stress disorder F43.10 [facility] [address] [place] [address] 11/16/2024 Jennifer York Major depressive disorder, recurrent episode with anxious distress F33.9 and Post traumatic stress disorder F43.10 [facility] [address] [place] [address] 02/15/2025 Jennifer York Major depressive disorder, recurrent episode with anxious distress F33.9 and Post traumatic stress disorder F43.10 [facility] [address] [place] [address] 05/10/2025 Jennifer York Major depressive disorder, recurrent [...] information was provided to the patient/guardian. 05/10/2025 Major depressive disorder, recurrent episode with [...] Post traumatic stress disorder (ICD-10 - F43.10) 02/15/2025 Post traumatic stress disorder (ICD-10 - F43.10) 11/12/2024 Major depressive disorder, recurrent episode with anxious distress (ICD-10 - F33.9) 11/16/2024 Post traumatic stress disorder (ICD-10 - F43.10) 08/19/2024 Post traumatic stress disorder (ICD-10 - F43.10) Plan Of Treatment No Information Insurance Providers Payer Name Payer Address Payer Phone Subscriber Number Group Number Insured Name Patient Relationship to Insured Coverage Start Date Coverage End Date [facility] [address] [place] [address] [id number] NORAH ESCAMILLA Self - patient is the insured 3 [employer] [place] [employer] [address] [place] [address] [id number] NORAH ESCAMILLA Self - patient is the insured 3 [employer] [facility] [address] [place] [address] [id number] NORAH ESCAMILLA Self - patient is the [...] Bypass, w/hiatal hernia repair Cholecystectomy 12/1995 hysterectomy 2005 orthopedic surgery 2006 pain management, nerve block injection 2 023 Hospitalization History Reason Date(Month/Year) see surgery hx.
--- OUTSIDE RECORDS SUMMARY | 2025-05-13 11:32 | XMS_ITS | CCD ---
Author Organization [facility] CliniSydc Care Team Providers Care Poultry Raiser Name Role Phone Jose Castano III Primary [...] Primary Care Unavailable KENTON, ANGELA Attending Unavailable STANELY, DR HERMES Park Consulting Unavailable KENTON, ANGELA Consulting Unavailable KENTON, ANGELA Admitting Unavailable MISC, DR CHO Primary Care Unavailable KENTON, ANGELA Attending Unavailable KENTON, ANGELA Consulting Unavailable HORTENCIA, PETEY Admitting Unavailable WEST, DR MANOHAR Walker Consulting Unavailable HORTENCIA, PETEY Attending Unavailable MISC, DR CHO Primary Care Unavailable HORTENCIA, PETEY Consulting Unavailable MD Zack Berman Attending Provider [phone] Zack Berman Attending Unavailable Zack Berman Admitting Unavailable NILPer, Zack Gardiner Attending Unavailable Jose Castano Referring Unavailable Zack BERMAN Attending Unavailable Zack BERMAN Attending Unavailable Bernadine KOENIG, Candis Primary Care Provider [phone] Candis Colindres MD Primary Care Provider ARMINDA HELTON Attending Unavailable ARMINDA HELTON Attending Unavailable AUDREY VELA Attending Unavailable JOSE CASTANO Referring Unavailable GODWIN KEYES Attending Unavailable GODWIN KEYES Attending Unavailable GODWIN KEYES Attending Unavailable Christianne Jiang APRN Attending Provider Candis Colindres DO Primary Care Provider Giedraitis MD, Andrius Vytautas Attending Unavailable Giedraitis MD, Andrius Vytautas Attending Unavailable Giedraitis MD, Andrius Vytautas Attending Unavailable Giedraitis MD, Andrius Vytautas Attending Unavailable Giedraitis MD, Andrius Vytautas Attending Unavailable Giedraitis MD, Andrius Vytautas Attending Unavailable Allergies Allergy Classification Reported Allergen(s) Allergy Type Date of Onset Reaction(s) Facility (20 sources) Latex; Translations: [latex] Drug allergy 4 Cutaneous eruption (morphologic abnormality), Other: See Comments, Rash [facility] (20 sources) SUMAtriptan; Translations: [sumatriptan] Drug Allergy 7 Other: See Comments, GI intolerance [facility] (1 source) Amitriptyline Drug Allergy [facility] (1 source) NSAIDs Drug allergy (disorder) [facility] (1 source) Plasmin Drug Allergy [facility] (3 sources) Adhesive bandage; Translations: [Adhesive Bandage] Propensity to adverse reactions to substance [facility] [place] (1 source) SUMAtriptan Drug Allergy 8 [facility] (11 sources) Wound Dressing Adhesive Propensity to adverse reactions 4 [facility] (1 source) NSAIDS (Non-Steroidal Anti-Inflamma Propensity to adverse reactions 5 upset stomach [facility] 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 Medications Current Medications Medication Drug Class(es) Dates Sig (Normalized) Sig (Original) [id number] 200 actuat albuterol 0.09 mg/actuat metered dose inhaler (11 sources) beta2-Adrenergic Agonist take 2 puff(s) by inhalation every four hours for wheezing albuterol HFA 90 mcg/act inhaler Inhale 2 puffs every 4 (four) hours if needed for wheezing Active atomoxetine 40 mg oral capsule (20 sources) Norepinephrine Reuptake Inhibitor Start: 03-25-2025 take 1 capsule by mouth once daily Atomoxetine 40 mg capsule Active 40 MG PO Daily March 25, 2025 12:00am Complies with drug therapy Start: 03-25-2025 take 1 capsule by mo uth once daily Atomoxetine 80 mg capsule Active 80 MG PO Daily March 25, 2025 12:00am Complies with drug therapy Start: 05-19-2024 take 1 capsule by mo ut once daily in the morning atomoxetine (Strattera) 40 MG capsule TAKE 1 CAPSULE BY MOUTH EVERY DAY IN THE MORNING FOR 30 DAYS 05/19/2024 Active Start: 11-13-2023 take 1 capsule by mo [facility] once daily atomoxetine (Strattera) 80 MG capsule Take 80 mg by mouth Daily 11/13/2023 Active Start: 10-28-2023 take 1 capsule by mo [facility] once daily in the morning Strattera 60 mg Cap 60 mg = 1 cap(s), Oral, qAM, Refills(s) 0 Start Date: 10/28/23 Status: Ordered Start: 10-28-2023 take 1 capsule by mo [facility] once daily in the morning Strattera [...] (Ineffective) Start: 10-28-2023 [facility] daily as needed for pain [...] oral tablet (2 sources) Stimulant Laxative Start: 1 take 1 tablet by mouth once daily Dulcolax 5 mg Tab-EC 5 mg = 1 tab(s), Oral, Daily, # 50 tab(s), Refills(s) 1, Pharmacy: [facility], 155, cm, 01/25/21 14:00:00 EDT, Height/Length Dosing, 77.7, kg, 01/25/21 14:00:00 EDT, Weight Dosing Start Date: 01/25/21 Status: Ordered cariprazine 1.5 mg oral capsule (14 sources) Atypical Antipsychotic Start: 5 take 1 capsule by mouth once daily Cariprazine (Vraylar) 1.5 mg capsule Active 1.5 MG PO Daily March 25, 2025 12:00am Complies with drug therapy Start: 10-28-2023 take 1 capsule by [facility] once daily Vraylar 1.5 MG capsule Take 1 capsule by mouth Daily 12/24/2023 Active dicyclomine hydrochloride 10 mg oral capsule (8 sources) Anticholinergic Start: 03-01-2022 take 4 capsules by mouth four times daily as needed for pain Bentyl 10 mg Cap 40 mg, Oral, QID, PRN Pain, # 45 cap(s), Refills(s) 4, Pharmacy: [facility], 155, cm, 03/01/22 15:01:00 EDT, Height/Length Dosing, 54, kg, 03/01/22 15:01:00 EDT, Weight Dosing Start Date: 03/01/22 Status: Ordered dicyclomine HCl (BENTYL ORAL) Take by mouth. 0 Active Comment on above: Take by mouth. DULoxetine 30 mg delayed release oral capsule (20 sources) Serotonin and Norepinephrine Reuptake Inhibitor Start: 5 take 1 capsule by mouth once daily Duloxetine 30 mg capsule,delayed release(DR/EC) Active 30 MG PO Daily March 25, 2025 12:00am Complies with drug therapy Start: 03-25-2025 take 1 capsule by mo ut once daily Duloxetine 60 mg capsule,delayed release(DR/EC) Active 60 MG PO Daily March 25, 2025 12:00am Complies with drug therapy Start: 09-13-2024 take 1 capsule by mo uth once daily DULoxetine (Cymbalta) [address] capsule TAKE 1 CAPSULE BY MOUTH EVERY DAY FOR 30 DAYS 09/13/2024 Active Start: 11-23-2023 take 1 capsule by mo uth once daily DULoxetine (Cymbalta) [address] [...] Refills(s) 0 Start Date: 10/28/23 Status: Ordered fluticasone propionate 0.05 mg/actuat metered dose nasal spray (12 sources) Corticosteroid Start: 03-25-2025 take 1 spray(s) nasal route once daily Fluticasone Propionate 50 mcg/actuation spray,suspension Active 1 SPRAY INTRANASAL Daily March 25, 2025 12:00am administer into each nostril Complies with drug therapy take 1 spray(s) nasal route once daily fluticasone (Flonase) 50 MCG/ACT nasal spray Administer 1 spray into each nostril Daily Shake gently. Before first use, prime pump. After use, clean tip and replace cap. Active hydrOXYzine pamoate 50 mg oral capsule (1 source) Antihistamine Start: 03-25-2025 Hydroxyzine Pa moate 50 mg capsule Active 50 MG PO as needed March 25, 2025 12:00am Complies with drug therapy levonorgestrel 0.502734 mg/hr intrauterine system (14 sources) Progestin, Progestin-containing Intrauterine Device Start: 03-25-2025 Levonorgestrel (Mirena) 21 mcg/24hr (up to 8 yrs) 52 mg intrauterine device Active INTRAUTERI March 25, 2025 12:00am Complies with drug therapy Start: 10-28-2023 Levonorgestrel (Mirena, 52 MG,) 20 [...] Ordered ondansetron 4 mg disintegrating oral tablet (4 [...] pantoprazole 20 mg delayed release oral tablet (20 sources) Proton Pump Inhibitor Start: 03-25-20 take 1 tablet by mouth once daily Pantoprazole 20 mg tablet,delayed release (DR/EC) Active 20 MG PO Daily March 25, 2025 12:00am Complies with drug therapy Start: 09-15-2020 take 1 tablet by antwan th before mealtime pantoprazole (ProtoNix) 20 MG EC [...] Status: Ordered pregabalin 100 mg oral capsule (16 sources) Start: 03-25-2025 take 1 capsule by mouth twice daily Pregabalin 100 mg capsule Active 100 MG PO Twice daily March 25, 2025 12:00am Complies with drug therapy Start: 01-08-2024 take 1 capsule by mo uth in the morning, then take 1 capsule [...] Status: Ordered propranolol 120 mg oral tablet (10 sources) beta-Adrenergic Ron Start: 01-25-2021 take 120 [...] once daily. 0 12/28/2020 Active Start: 05-06-2018 End: 03-25-2025 take 1 tablet by mouth twice daily Propranolol 20 mg Tablet Discontinued 20 MG PO Twice daily May 06, 2018 12:00am March 25, 2025 8:38am Comment on above: Take 120 mg by mouth once daily. rimegepant 75 mg disintegrating oral tablet (16 sources) Start: 03-25-2025 Rimegepant (Nurtec Odt) 75 mg tablet,disintegrating Active 75 MG PO Every 48 hours March 25, 2025 12:00am Complies with drug therapy Start: 07-16-2024 Rimegepant Sul fate (Nurtec) 75 MG tablet dispersible Indications: Migraine [...] administration instructions). tiZANidine 4 mg oral tablet (12 sources) Central alpha-2 Adrenergic Agonist Start: take 1 tablet by mouth three times daily Tizanidine 4 mg tablet Active 4 MG PO Three times daily March 25, 2025 8:37am Complies with drug therapy Start: 04-27-2019 take 1 capsule by mo uth three times daily as needed tizanidine 4 mg oral capsule 4 mg = 1 cap(s), Oral, TID, PRN Prophylaxis, Refills(s) 0 Start Date: 04/27/19 Status: Ordered Start: 05-06-2018 End: 03-25-2025 take 1 tablet by mouth three times daily as needed tiZANidine (Zanaflex) 4 MG tablet TAKE ONE TABLET BY MOUTH THREE TIMES A DAY NEEDED FOR MUSCLE SPASTICITY 07/23/2024 Active topiramate 100 mg oral tablet (8 sources) Start: 04-27-2019 take 1 tablet by mouth twice daily topiramate 100 mg Tab 100 mg = 1 tab(s), Oral, BID, Refills(s) 0, Migraine headache Start Date: 04/27/19 Status: Ordered Start: 05-06-2018 End: 03-25-2025 take 1 tablet by mouth at bedtime Topiramate 50 mg Tablet Discontinued 50 MG PO Bedtime May 06, 2018 12:00am March 25, 2025 8:37am Comment on above: Take 50 mg by mouth twice daily. traZODone hydrochloride 50 mg oral tablet (14 sources) Serotonin Reuptake Inhibitor Start: take 1 tablet by mouth once daily at bedtime Trazodone 50 mg tablet Active 50 MG PO Daily at bedtime March 25, 2025 12:00am Complies with drug therapy Start: 10-28-2023 take 1 tablet by antwan at bedtime traZODone (Desyrel) 50 MG tablet Take 50 mg by mouth at bedtime 12/25/2023 Active Ventolin HFA 90 mcg/inh Aerosol (6 sources) Start: 04-27-2019 take 2 puff(s) by inhalation four times daily Ventolin HFA 90 mcg/inh Aerosol 2 puff(s), Inhalation, QID Wheezing, Refill(s) 0 Start Date: 04/27/19 Status: Ordered verapamil hydrochloride 180 mg extended release oral tablet (8 sources) Calcium Channel Ron Start: 10-28-2023 take 1 tablet by mouth once daily [...] Active Comment on above: Take by mouth. amitriptyline hydrochloride 25 mg oral tablet (2 sources) Tricyclic Antidepressant Start: 05-06-2018 End: 03-25-2025 take 1 tablet by mouth once daily at bedtime Amitriptyline 25 mg Tablet Discontinued 25 MG PO Daily at bedtime May 06, 2018 12:00am March 25, 2025 8:38am amLODIPine 2.5 mg oral tablet (2 sources) Dihydropyridine Calcium Channel Ron Start: 05-06-2018 End: 05-06-2018 Amlodipine 2.5 mg Tablet Discontinued PO Bedtime May 06, 2018 12:00am May 06, 2018 2:40pm Start: 05-06-2018 End: 05-06-2018 Amlodipine Discontinued PO B edtime May 06, 2018 12:00am May 06, 2018 [...] on above: Apply to affected ar ea. Norgestimate-Ethinyl Estradiol (2 sources) Progestin, Estrogen Start: 05-06-20 End: 03-25-20 take 1 tablet by mouth at bedtime Norgestimate-Ethinyl Estradiol (Sprintec (28)) 0.25-35 mg-mcg Tablet Discontinued 1 TAB PO Bedtime May 06, 2018 12:00am March 25, 2025 8:42am Start: 05-06-2018 take 1 tablet by antwan th at bedtime Norgestimate-Ethinyl Estradiol (Sprintec (28)) 0.25-35 mg-mcg Tablet Active 1 TAB PO Bedtime May 06, 2018 12:00am fexofenadine hydrochloride 180 mg oral tablet (2 [...] Take 10 mg by mouth once daily. 1.5 ml fremanezumab-vfrm 150 mg/ml prefilled syringe (12 sources) Start: 03-25-20 End: 03-25-20 Fremanezumab-Vfrm 225 mg/1.5 mL auto-injector Discontinued 225 MG SUBCUT every month March 25, 2025 12:00am March 25, 2025 8:56am Start: 04-06-2024 fremanezumab ( Ajovy) 225 MG/1.5ML auto-injector Indications: Migraine without status migrainosus, not intractable, unspecified migraine type (CMS/HCC) Inject one 225 mg/1.5mL injection subcutaneously once per month 1.68 mL 11 04/06/2024 Active gabapentin 100 mg oral capsule (2 sources) Anti-epileptic Agent Start: 10-13-2020 take 1 capsule by mouth three times daily gabapentin (NEURONTIN) 100 mg capsule Take 1 capsule by mouth three times daily for 14 days. 42 capsule 0 10/13/2020 Active Comment on above: Take 1 capsule by [facility] three times daily for 14 days. Lactobacillus acidophilus (2 sources) Lactobacillus acidophilus (PROBIOTIC ORAL) Take by mouth. 0 Active Comment on above: Take by mouth. methylPREDNISolone 40 mg injection (2 sources) Corticosteroid Start: 01-21-2025 End: 01-21-2025 methylPREDNISolone Na Suc (PF) reconstituted solution 40 [...] in up to 4 times per day omeprazole 20 mg delayed release oral capsule (2 sources) Proton Pump Inhibitor Sta rt: 8 End : 5 take 1 capsule by mouth at bedtime Omeprazole 20 mg Capsule,Delayed Release(Dr/Ec) Discontinued 20 MG PO Bedtime May 06, 2018 12:00am March 25, 2025 8:38am phentermine hydrochloride 37.5 mg oral tablet (8 sources) Sympathomimetic Amine Anorectic Sta rt: 5 End : 5 take 1 tablet by mouth once daily 30 minutes after breakfast Phentermine (Adipex-P) 37.5 mg tablet Discontinued 37.5 MG PO Daily March 25, 2025 12:00am March 25, 2025 8:56am must administer 30 minutes before or 1-2 hours after breakfast Start: 07-08-2024 take 1 tablet by antwan once daily phentermine (Adipex-P) 37.5 MG tablet Take 37.5 mg by mouth Daily 07/08/2024 Active psyllium 525 mg oral capsule (2 sources) [...] patch behind the ear every 3 days 24 hr venlafaxine 75 mg extended release oral capsule (2 sources) Serotonin and Norepinephrine Reuptake Inhibitor Start: 05-06-2018 End: 03-25-2025 take 1 capsule by mouth once daily at bedtime Venlafaxine 75 mg Capsule,Extended Release 24hr Discontinued 75 MG PO Daily at bedtime May 06, 2018 12:00am March 25, 2025 8:37am vitamin b12 1 mg oral tablet (2 sources) Vitamin B12 take 1 tablet by mouth once daily cyanocobalamin (VITAMIN B-12) 1,000 mcg tab Take 1,000 mcg by mouth once daily. 0 Active Comment on above: Take 1,000 mcg by mo [facility] once daily. Problems Active Problems Problem [...] unspecified site] Onset: 4 02-06-2024 Chronic Other acquired deformities (3 sources) Spondylolysis of cervical spine; Translations: [Spondylolysis, cervical region] Episodic Other aftercare (1 source) Other nursing home (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 therapy; Translations: [OTH [facility] CURRENT [...] (6 sources) Muscular incoordination 11-07-2020 Episodic Other nervous system disorders (12 sources) Paresthesia; Translations: [Paresthesia of skin] Onset: 4 05-31-2024 Episodic Other nutritional; endocrine; and metabolic disorders [...] (2 sources) Obstructive hydronephrosis Onset: 7 10-28-2023 Unclassified (1 source) M43.02 - Spondylolysis, cervical region Past or Other Problems Problem Classification Problem [...] discussed. Consent was given by the patient. [facility] Ambulatory Visit Summaryon 0 01-07-2024 Ambulatory Visit [...] Martinez When: Only if needed Where: [address] [facility] [place] [address]- Medications What How Much When Instructions Unchanged [...] Martinez Only if needed [address] [place] [address]- Additional Instructions: Problem List/Past Medical [...] mRNA-1273 vaccine 09/28/2020 Recorded 2023-10-28: TPV20 Normal [facility] Comment on above: Result Comment: Elec tronically Signed By: ANTONELLA KOENIG, Zack Gardiner\.br\Date and Time Signed: 01/07/24 16:13 EDT Operative Reporton Operative Report [id number] [facility] Pathology Noteon 12-27-2023 Pathology Note [id number]#[id number] [facility] Varun 12-25-2023 L Specimen: [id number] eceived: 12/25/23-1355 Status: SOUT Req Num: [id number] Spec Type: Surgical Subm Dr: Zack Berman MD FACS Tissues: A Lipoma (LT BACK) Procedures: HE, Gross/Micro L3 Age/ Patient Sex Location Account Attending Physician Nica Estrada 38/F LABELL [id number] Zack Berman MD FACS SPEC NUM: [id number] RECD: 12/25/23 STATUS: LAITH JUNE NUM: [id number] JAVI: 12/25/[address] [facility] [address]: Zack Berman MD FACS ENTERED: 12/25/[address] [facility] DR: Carlos,Lab SPEC TYPE: Surgical DEPT: MJ [...] no obvious areas of hemorrhage or necrosis. Implementation Architect sections are submitted A1. RG Clinical history: Lipoma, path pending CPT Codes 45345 -------- -------- Specimen: [id number] Received: 12/25/23 Status: LAITH Vieirascott Num: [id number] Spec Type: Surgical Subm Dr: Zack Berman MD FACS Tissues: A Lipoma (LT BACK) Procedures: HE, Gross/Micro L3 -------- Patient: Nica Estrada [id number] (Continued) -------- Signed (signature on file) Darren Dias MD 12/26/23 1322 Normal [facility] Consent for Procedure/Surger yon 11-12-2023 Consent for Procedure/Surgery [id number]#[id number] Normal [facility] Consent for Procedure/Surgery [id number]#1.00TIFF [facility] Ambulatory Visit Summaryon 0 11-11-2023 Ambulatory [...] for choosing us for your care. Normal [facility] Physician Referralon 024 Physician Referral [id number]#[id number] Normal [facility] PREG HCG QUALon 04-20-2022 , QUAL Negative Normal NEGATIVE [facility] Comment on above: Performed By: #### P REG #### [facility] [address] [place] [address] Dr. Refugio Apple CNOVon 04-12-2022 CNOV Office Visit (PLASMN ) NICA ESTRADA ([id number]) 1985 F Date Time Provider Department 04/12/22 [...] times d (more content not included)... Normal [facility] PREG HCG QUALon 04-06-2022 , QUAL Negative Normal NEGATIVE [facility] Comment on above: Performed By: #### P REG #### [facility] [address] [place] [address] Dr. Refugio Apple CHEMISTRYOrdered By: SYSTEM SYSTEM [...] Re misol CNOVon 11-10-2021 CNOV Office Visit (GENSS ) NICA ESTRADA ([id number]) 1985 F Date Time Provider Department 11/10/21 [...] mcg, Iron 45-60 mg and calcium citrate 6792-8751 mg/day PHYSICAL EXAMINATION: Weight loss: BMI 23.2 [...] Ena Mcginnis MD Referring Provider: ENA MCGINNIS [[id number]] Allergies As of Date: 11/10/2021 Noted Allergy [...] JUANITA (a (more content not included)... Normal [facility] MRI [facility] CONon 11-10-19 MRI [facility] CON EXAMINATION: MRI [facility] CON HISTORY: Cervical spondylosis without myelopathy [...] Date: 2021-11-10 14:28 Normal [facility] CNOVon 06-15-2021 CNOV Office Visit ([id number] ) NICA ESTRADA ([id number]) 1985 F Date Time Provider Department 06/15/21 11:30 AM ENA MCGINNIS [id number] During your visit today, we recorded the [...] call directly to schedule upper endoscopy at [phone]. Please leave a message if you receive [...] is especially important if you have had ikjga-btjycyozm-llrlr surgery in the past. How is an [...] minutes for (more content not included)... Normal [facility] HISTORY PHYSICALon HISTORY PHYSICAL HNO ID: [id number] Author: Kalpana Otero MD Service: General Surgery [...] December 16, 2020 TIME: 9:33 AM Normal [facility] NURSING PROGon 12-16-2020 NURSING PROG HNO ID: [id number] Author: Yashira LauRn) DEEPTHI Nova Service: Nursing [...] PT EDon 12-16-2020 PT ED HNO ID: [id number] Author: Manohar (Rn) Senia RN Service: Nursing Author Type: Registered Nurse [...] NURSING PROGon 10-25-2020 NURSING PROG HNO ID: [id number] Author: Diego Abad RN Service: ? Author Type: Registered Nurse Type: Nursing Progress Note Filed: 10/25/2020 2:09 AM Note Text: Nursing Progress Note Patient Name: Nica Estrada Patient Location: [address] Daily Note: 2000: Assessment complete see [...] CAREon 10-25-2020 PLAN OF CARE HNO ID: [id number] Author: Davina Bonilla (HackPad) Service: Pharmacy Author Type: ? Type: Plan of Care Filed: 10/25/2020 2:56 PM Note Text: Pharmacy Discharge Medication Service: This patient has elected to receive their discharge prescriptions through the [facility] Bedside Prescription Delivery program. The prescriptions are currently being processed. A follow-up note will be entered once the prescriptions have been filled and delivered to the patient. Please contact me with any questions or updates to the patient's discharge medications. Davina Bonilla ([employer]ackPad) DCT Contact Info: [id number] [facility] PLAN OF CARE HNO ID: [id number] Author: Davina Bonilla (H[employer]) Service: Pharmacy Author Type: ? Type: Plan of Care Filed: 10/25/2020 2:56 PM Note Text: [employer] BEDSIDE DELIVERY SURVEY 1. Patient to use [facility] Bedside Delivery - YES Insurance Information as follows: 2. Insurance card on file - YES 3. Credit card for payment - N/A [facility] PLAN OF CARE HNO ID: [id number] Author: Davina Bonilla ([employer]) Service: Pharmacy Author Type: ? Type: Plan [...] or your Primary Care Provider. Davina Bonilla (Spinning Frame Tender) PAGER: [phone] October 25, 2020 2:56 PM [facility] PROGRESSon 10-25-2020 PROGRESS HNO ID: [id number] Author: Presley Torrez Service: General Surgery Author [...] DATE: October 25, 2020 TIME: 7:02 AM [facility] PROGRESS HNO ID: [id number] Author: Juliet Lilly Service: General Surgery Author [...] PT EDon 10-25-2020 PT ED HNO ID: [id number] Author: Geoff Sheets) Krunal Service: Nutrition Therapy Author Type: Warehouse Picker Type: Patient Education Filed: 10/25/2020 12:04 PM [...] SIGNATURE: GEOFF SIMON DTR PATIENT NAME: Nica Estrada DATE: October 25, 2020 TIME: 12:04 PM PAGER: [phone] [facility] ANES POSTPROC EVALon 021 ANES POSTPROC EVAL HNO ID: [id number] Author: Brandon Stoddard Service: Anesthesiology Author Type: [...] October 24, 2020 TIME: 4:58 PM CSN: [id number] [facility] ANES PRE-OPon 10-24-2020 ANES PRE-OP HNO ID: [id number] Author: Colin Archer Service: Anesthesiology Author Type: [...] October 24, 2020 TIME: 1:18 PM CSN: [id number] [facility] NURSING PROGon 10-24-2020 NURSING PROG HNO ID: [id number] Author: Sridevi LauRn) DEEPTHI Triana Service: Nursing Author Type: Registered Nurse Type: Nursing Progress Note Filed: 10/24/2020 6:56 PM Note Text: Nursing Progress Note Patient Name: Nica Estrada [address] Transfer Note: Patient transferred into room/unit PK325 in stable condition. Actions taken: No futher actions taken at this time. at bedside. Will continue to monitor and check with patient. This note was completed by: Sridevi Triana RN [facility] NURSING PROG HNO ID: [id number] Author: Gege (Rn) DEEPTHI Kenney Service: Nursing [...] OPERATIVE NOon 10-24-2020 OPERATIVE NO HNO ID: [id number] Author: Ena Mcginnis Service: General Surgery Author Type: Physician Type: Operative Report Filed: 10/26/2020 11:07 AM Note Text: [facility] - Operative Report NICA ESTRADA : 1985 AGE: 35. SEX: F PATIENT TYPE: I HOSP SVC: GENS LOCATION: [id number] ATTENDING PHYSICIAN: Ena Mcginnis MD CSN NUMBER: [id number] DATE OF SURGERY/PROCEDURE: 10/24/2020 INCISION/PROCEDURE START TIME: 2:28 PM INCISION CLOSE/PROCEDURE END TIME: 4:31 PM PREOPERATIVE DIAGNOSIS: Morbid obesity, BMI of 42. POSTOPERATIVE DIAGNOSIS: 1. Morbid obesity. 2. Hiatal hernia. SURGEON: Ena Mcginnis MD STAFF PHARMACIST HOSPITAL: Presley Torrez MD. SURGERY/PROCEDURE: 1. Laparoscopic repair [...] The posterior cruroplasty was completed using 1 zzyqbz-[id number]-nfmuk stitch using silk to tighten the sharri. [...] assisted in the absence of qualified surgical coder help. He created the pouch and created the jejunojejunostomy. Ena Mcginnis MD TA:[id number] /[id number] Normal [facility] Confirm Blood Typeon 021 ABO/RH(D) Positive Normal [facility] Comment on above: Performed By: #### C ONABO ####[facility] [place], [place] [phone] HISTORY PHYSICALon HISTORY PHYSICAL HNO ID: [id number] Author: Amanda Shane (Pa) Service: ? Author Type: Physician Cellulose Insulation Helper Type: HANDP Filed: 10/17/2020 2:58 PM Note Text: HISTORY AND PHYSICAL EXAMINATION SERVICE DATE: 10/17/2020 SERVICE TIME: 2:42 PM PRIMARY CARE PHYSICIAN: Jose Castano III, REASON FOR VISIT: Nica Estrada is a [...] Disease) Morbid Obesity (Hcc) Iron Deficiency Anemia Emlisa (Obstructive Sleep Apnea) Hyperlipemia Asthma Subjective CHIEF [...] fevers. Neuro: No history of TIA's, stroke, CAMERA ENGINEER tumor, impaired sensorium, hemiplegia, paraplegia or quadraplegia. No neurological symptoms or problems. Respiratory: asthma, uses rescue about once every few weeks; no current resp sx. Had acute bronchitis last Fall, flared asthma for a while but is better now. Has environmental allergies Cardiovascular: No history of HTN requiring medication, no history of angina, CHF, IN, cardiac surgery or stents. Denies rest pain, gangrene or revascularization/amputation for PVD. No history of cardiovascular symptoms or problems. GI: Positive for GERD, no other GI sx. 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 Marcella Saldana RN Progress Notes ([address]): Ena Mcginnis MD 10/13/2020 5:31 PM Signed SURGERY PREOPERATIVE VISIT NOTE Name: Nica Estrada Medical Record: [id number] Encounter No.: [id number] Nica Estrada is a 35 year old [...] patient. Ena Mcginnis MD Previous Version Normal [facility] HEPATITIS B SURFACE AB IMMUN ITY, QNon 08-11-2020 HEPATITIS B SURFACE AB IMMUNITY, QN >1000 Normal > OR = 10 [facility] Comment on above: Result Comment: Patient has immunity to hepatitis B virus. For additional information, please refer to http://education.[employer]/faq/BNQ523 (This link is being provided for informational/ educational purposes only). Performed By: #### [id number] #### [employer], [address] [place] [id number] Dietary Clerk: Sixto Chandler MD Vital Signs Date Time Vital Sign Value Performing Clinician Facility 03-25-2025 08:53-0400 Body height 157.48 cm Candis Bernadine DO Work Phone: [facility] 03-25-2025 08:53-0400 Body mass index (BMI) [Ratio] 31.8 kg/m2 Candis Bernadine DO Work Phone: [facility] 03-25-2025 08:53-0400 Body weight 78.92 kg Candis Bernadine DO Work Phone: [facility] 03-25-2025 08:53-0400 Diastolic blood pressure 80 mm[Hg] Candis Bernadine DO Work Phone: [facility] 03-25-2025 08:53-0400 Heart rate 80 /min Candis Bernadine DO Work Phone: [facility] 03-25-2025 08:53-0400 Respiratory rate 18 /min Candis Bernadine DO Work Phone: [facility] 03-25-2025 08:53-0400 SaO2% (BldA) [Mass fraction] 98 % Candis Bernadine DO Work Phone: [facility] 03-25-2025 08:53-0400 Systolic blood pressure 140 mm[Hg] Candis Colindres DO Work Phone: [facility] 01-21-2025 08:26-0400 Body height 154.9 cm Arminda Helton PA Work Phone: [facility] 01-21-2025 08:26-0400 Body mass index (BMI) [Ratio] 32.69 kg/m2 Arminda Helton PA Work Phone: [facility] 01-21-2025 08:26-0400 Body weight 78.47 kg Arminda Helton PA Work Phone: [facility] 01-21-2025 08:26-0400 Diastolic blood pressure 82 mm[Hg] Arminda Helton PA Work Phone: [facility] 01-21-2025 08:26-0400 Heart rate 75 /min Arminda Helton PA Work Phone: [facility] 01-21-2025 08:26-0400 Respiratory rate 16 /min Arminda Helton PA Work Phone: [facility] 01-21-2025 08:26-0400 SaO2% (BldA) [Mass fraction] 97 % Arminda Helton PA Work Phone: [facility] 01-21-2025 08:26-0400 Systolic blood pressure 122 mm[Hg] Arminda Helton PA Work Phone: [facility] 01-04-2025 14:48-0400 Body height 157.5 cm Arminda Helton PA Work Phone: [facility] 01-04-2025 14:48-0400 Body mass index (BMI) [Ratio] 30.36 kg/m2 Arminda Helton PA Work Phone: [facility] 01-04-2025 14:48-0400 Body weight 75.3 kg Arminda Helton PA Work Phone: [facility] 01-04-2025 14:48-0400 Diastolic blood pressure 88 mm[Hg] Arminda Helton PA Work Phone: [facility] 01-04-2025 14:48-0400 Heart rate 84 /min Arminda Helton PA Work Phone: [facility] 01-04-2025 14:48-0400 Respiratory rate 16 /min Arminda Danie PA Work Phone: [facility] 01-04-2025 14:48-0400 SaO2% (BldA) [Mass fraction] 99 % Arminda Helton PA Work Phone: [facility] 01-04-2025 14:48-0400 Systolic blood pressure 140 mm[Hg] Arminda Helton PA Work Phone: [facility] 09-21-2024 10:03-0500 Body mass index (BMI) [Ratio] 30.8 kg/m2 Godwin Keyes MEDICAID ELIGIBILITY SPECIALIST Work Phone: [facility] 09-21-2024 10:03-0500 Body weight 73.94 kg Godwin Keyes MEDICAID ELIGIBILITY SPECIALIST Work Phone: [facility] 09-21-2024 10:03-0500 Diastolic blood pressure 93 mm[Hg] Godwin Keyes MEDICAID ELIGIBILITY SPECIALIST Work Phone: [facility] 09-21-2024 10:03-0500 Heart rate 86 /min Godwin Keyes MEDICAID ELIGIBILITY SPECIALIST Work Phone: [facility] 09-21-2024 10:03-0500 Systolic blood pressure 142 mm[Hg] Godwin Keyes MEDICAID ELIGIBILITY SPECIALIST Work Phone: [facility] 06-01-2024 09:53-0400 Body height 154.9 cm Godwin Keyes MEDICAID ELIGIBILITY SPECIALIST Work Phone: [facility] 06-01-2024 09:53-0400 Body mass index (BMI) [Ratio] 29.48 kg/m2 Godwin Keyes MEDICAID ELIGIBILITY SPECIALIST Work Phone: [facility] 06-01-2024 09:53-0400 Body weight 70.76 kg Godwin Keyes MEDICAID ELIGIBILITY SPECIALIST Work Phone: [facility] 06-01-2024 09:53-0400 Diastolic blood pressure 108 mm[Hg] Godwin Keyes MEDICAID ELIGIBILITY SPECIALIST Work Phone: [facility] 06-01-2024 09:53-0400 Heart rate 80 /min Godwin Keyes MEDICAID ELIGIBILITY SPECIALIST Work Phone: [facility] 06-01-2024 09:53-0400 Systolic blood pressure 146 mm[Hg] Godwin Keyes MEDICAID ELIGIBILITY SPECIALIST Work Phone: [facility] 10-16-2022 12:53-0500 Diastolic blood pressure 80 mm[Hg] Otis Marcin [facility] 10-16-2022 12:53-0500 Heart rate 55 /min Otis Marcin [facility] 10-16-2022 12:53-0500 Mean blood pressure 89 mm[Hg] Otis Marcin [facility] 10-16-2022 12:53-0500 Respiratory rate 18 /min Otis Marcin [facility] 10-16-2022 12:53-0500 Systolic blood pressure 108 mm[Hg] Otis Marcin [facility] 08-28-2022 08:52-0500 Heart rate 70 /min Otis Marcin [facility] 08-28-2022 08:52-0500 SaO2% (BldA) [Mass fraction] 100 % Otis Marcin [facility] 08-28-2022 08:52-0500 Respiratory rate 16 /min Otis Marcin [facility] 08-28-2022 08:52-0500 Diastolic blood pressure 80 mm[Hg] Otis Marcin [facility] 08-28-2022 08:52-0500 Mean blood pressure 93 mm[Hg] Otis Marcin [facility] 08-28-2022 08:52-0500 Systolic blood pressure 121 mm[Hg] Otis Marcin [facility] 08-28-2022 08:46-0500 Heart rate 70 /min Otis Marcin [facility] 08-28-2022 08:46-0500 SaO2% (BldA) [Mass fraction] 100 % Otis Marcin [facility] 08-28-2022 08:46-0500 Body temperature 97.52 [degF] Otis Marcin [facility] 08-28-2022 08:46-0500 Diastolic blood pressure 69 mm[Hg] Otis Marcin [facility] 08-28-2022 08:46-0500 Mean blood pressure 80 mm[Hg] Otis Marcin [facility] 08-28-2022 08:46-0500 Systolic blood pressure 104 mm[Hg] Otis Marcin [facility] 08-28-2022 08:46-0500 Respiratory rate 16 /min Otis Marcin [facility] 08-28-2022 08:41-0500 Diastolic blood pressure 64 mm[Hg] Otis Marcin [facility] 08-28-2022 08:41-0500 Systolic blood pressure 102 mm[Hg] Otis Marcin [facility] 08-28-2022 08:40-0500 Heart rate 71 /min Otis Marcin [facility] 08-28-2022 08:40-0500 Respiratory rate 12 /min Otis Marcni [facility] 08-28-2022 08:40-0500 SaO2% (BldA) [Mass fraction] 100 % Otis Marcin [facility] 08-28-2022 08:35-0500 Respiratory rate 12 /min Otis Burch [facility] 08-28-2022 08:30-0500 Respiratory rate 12 /min Otis Burch [facility] 08-28-2022 07:17-0500 Mean blood pressure 78 mm[Hg] Otis Burch [facility] 08-28-2022 07:17-0500 Respiratory rate 16 /min Otis Burch [facility] 08-28-2022 07:17-0500 Body temperature 98.24 [degF] Otis Burch [facility] 04-12-2022 14:47-0400 Body height 152.4 cm Lazara Woods MD Work Phone: [facility] 04-12-2022 14:47-0400 Body temperature 98.91 [degF] Lazara Woods MD Work Phone: [facility] 04-12-2022 14:47-0400 Body weight 55.52 kg Lazara Woods MD Work Phone: [facility] 04-12-2022 14:47-0400 Diastolic blood pressure 92 mm[Hg] Lazara Woods MD Work Phone: [facility] 04-12-2022 14:47-0400 Heart rate 65 /min Lazara Woods MD Work Phone: [facility] 04-12-2022 14:47-0400 Systolic blood pressure 140 mm[Hg] Lazara Woods MD Work Phone: [facility] 03-01-2022 14:59-0400 Diastolic blood pressure 86 mm[Hg] Oral DIETZ [facility] 03-01-2022 14:59-0400 Heart rate 52 /min Oral DIETZ [facility] 03-01-2022 14:59-0400 Systolic blood pressure 130 mm[Hg] Oral DIETZ [facility] Encounters Encounter Date Encounter Type Care Provider Facility Start: 03-25-2025 End: 03-25-2025 ambulatory Candis Colindres DO Work Phone: [facility] Work Phone: Start: 03-25-2025 End: 03-25-2025 Patient encounter procedure Christianne Romero CHIEF PAYROLL CLERK [facility] [place] Work Phone: Start: 03-22-2025 End: 03-22-2025 ambulatory Andrius Vytautas Giedraitis Facility: [place] Start: 03-15-2025 End: 03-15-2025 ambulatory Andrius Vytautas Gifletcheritis Facility: [place] Start: 02-01-2025 End: 02-01-2025 ambulatory Andrius Vytautas Gifletcheritis Facility: [place] Start: 01-21-2025 End: 01-21-2025 Bamboo [...] 25 minutes Arminda PRICE Work Phone: [facility] [place] Comment on above: Migraine without sta tus migrainosus, not intractable, unspecified migraine type (CMS/HCC) (Primary Dx); Myalgia; Cervical spondylosis; Fibromyalgia; Degeneration of intervertebral disc of lumbar region, unspecified whether pain present; Trigger point of neck; Neck pain Start: 01-04-2025 End: 01-04-2025 Bamboo flowsheet Arminda PRICE Work Phone: [facility] [place] Start: 01-04-2025 End: 01-04-2025 Bamboo flowsheet Arminda Helton PA Work Phone: [facility] [place] Start: 10-19-2024 End: 10-19-2024 ambulatory Aaliyah Hampton MD Facility: [place] Start: 09-28-2024 End: 09-28-2024 ambulatory Aaliyah Hampton MD Facility: [place] Start: 09-21-2024 End: 09-21-2024 Bamboo flowsraj Keyes MEDICAID ELIGIBILITY SPECIALIST Work Phone: [facility] [address] Start: 09-21-2024 End: 09-21-2024 Bamboo flowsheet Godwin Keyes MEDICAID ELIGIBILITY SPECIALIST Work Phone: [facility] [address] Start: 09-21-2024 End: 09-21-2024 Office outpatient visit 15 minutes Godwin Keyes MEDICAID ELIGIBILITY SPECIALIST Work Phone: [facility] [address] Comment on above: Migraine without sta tus migrainosus, not intractable, unspecified migraine type (CMS/HCC) (Primary Dx); Myalgia; Cervical spondylosis; Fibromyalgia; Degeneration of intervertebral disc of lumbar region, unspecified whether pain present Start: 09-21-2024 End: 09-21-2024 ambulatory GODWIN KEYES Not Available Start: 06-29-2024 End: 06-29-2024 ambulatory Aaliyah Hampton MD Facility: [place] Start: 06-01-2024 End: 06-01-2024 Bamboo flowsheet Godwin Keyes MEDICAID ELIGIBILITY SPECIALIST Work Phone: [facility] Start: 06-01-2024 End: 06-01-2024 Bamboo flowsheet Godwin Keyes MEDICAID ELIGIBILITY SPECIALIST Work Phone: [facility] Start: 06-01-2024 End: 06-01-2024 ambulatory GODWIN KEYES Not Available Start: 06-01-2024 End: 06-01-2024 Office outpatient visit 15 minutes Godwin Keyes MEDICAID ELIGIBILITY SPECIALIST Work Phone: [facility] Comment on above: Migraine without sta [...] End: 01-07-2024 Patient encounter procedure Zack BERMAN [facility] [place] Start: 01-03-2024 ambulatory Zack BERMAN Facility:[facility] Start: 12-25-2023 End: 12-25-2023 ambulatory Zack Berman Facility:[facility] Start: 12-25-2023 End: 12-26-2023 ambulatory Zack BERMAN [facility] Work Phone: Start: 12-25-2023 End: 12-25-2023 Departed Referred MD Zack Berman Work Phone: [facility] [place] [facility] Start: 11-11-2023 End: 11-12-2023 ambulatory Zack BERMAN Facility: [facility] Start: 11-11-2023 End: 11-26-2023 Pre-admission assessment Zack BERMAN [facility] Start: 10-21-2023 ambulatory Zack BERMAN Facility:[facility] Start: 10-16-2022 End: 10-16-2022 Pain Management Otis Burch [facility] Start: 08-28-2022 End: 08-28-2022 Pain Management Otis Burch [facility] Start: 05-04-2022 End: 05-05-[address] DOCTOR BEAR Facility:[facility] Start: 04-20-2022 End: 04-20-2022 ambulatory ANGELA FUNG Facility:[facility] Start: 04-12-2022 End: 04-12-2022 Patient encounter procedure aLzara Woods MD Work Phone: Plastic Surgery Comment [...] End: 03-01-2022 Patient encounter procedure Oral DIETZ [facility] Start: 11-10-2021 End: 11-11-2021 ambulatory PETEY HORTENCIA Facility:[facility] Start: 05-24-2021 End: 06-28-[address] DOCTOR BEAR Facility:[facility] Procedures Date Procedure Procedure Detail Performing Clinician Start: 01-21-2025 Injection single/recreation facilities supervisor trigger point 3/> muscles Arminda PRICE Work Phone: Start: 12-25-2023 Excision of lipoma of back Zack BERMAN Start: 08-28-2022 Radiofrequency ablation of medial branch of lumbar nerve using fluoroscopic guidance Otis Burch Comment on above: L4/5 +L5/S1 40-50% relief Start: 10-17-2020 Antibody screen Comment on above: Performed By: #### [id number] ####[place] [id number] [place], [place] [phone] Start: 05-09-2020 Adult depression screening assessment Lazara Woods MD Work Phone: Start: 04-18-2020 Colonoscopy Oral DIETZ Start: 04-18-2020 Esophagogastroduodenoscopy Oral DIETZ section Oral DIETZ section Zack BHARATHI Albarado Cholecystectomy Oral DIETZ Fasciotomy of foot Zack HOFFMAN Trevor-en-Y gastrojejunostomy Zack BERMAN Plan of Treatment Date Care Activity Detail Author Start: 04-12-2025 End: 04-12-2025 Patient encounter procedure 04/12/2025 9:40 AM EDT Office Visit [facility] [address] [place] [address] Arminda Helton PA [address] [place], [place] [id number] [facility] Start: 03-25-2025 Patient referral [facility] Work Phone: Start: 03-25-2025 End: 03-25-2025 Patient encounter procedure 03/25/2025 9:00 AM EDT Office Visit [facility] [address] [place] [phone] Christianne Jiang NP [address] [place] [facility] Start: 01-21-2025 End: 01-21-2025 Clinical Support 01/21/2025 8:20 AM EDT Clinical Support [facility] [address] [place] [address] Arminda Helton PA [address] [place], [place] [id number] [facility] Start: 01-04-2025 End: 01-04-2025 Patient encounter procedure 01/04/2025 2:40 PM EDT Office Visit [facility] [address] [place] [address] Lazara Wagner NP [address] [place] [phone] [facility] [place] [address] Start: 01-04-2025 End: 01-04-2026 Inject Trigger Point, 1 or 2 Inject Trigger Point, 1 or 2 Procedures Routine Myalgia Trigger point of neck Neck pain Expected: 01/04/2025 (Approximate), Expires: 01/04/2026 [facility] Work Phone: Comment on above: Expected: 01/04/2025 (Approximate), Expires: 01/04/2026 Start: 09-21-2024 End: 09-21-2024 Patient encounter procedure [facility] [address] Comment on above: Arrived Start: 05-17-2024 Influenza vaccination Influenza Vacc ine (#1) [facility] Start: 2023 Screening for malign ant neoplasm of breast Mammogram [facility] Start: 05-17-2022 Influenza vaccination INFLUENZA (#1) [facility] Start: 05-09-2021 Adult depression screening assessment DEPRESSION SCREENING [facility] Start: 04-10-2021 COVID-19 VACCINE (3 - Booster for Moderna series) COVID-19 VACCINE (3 - Booster for Moderna series) [facility] Start: 2013 HPV TESTING HPV TESTING [facility] Start: 2013 Screening for malign ant neoplasm of cervix [facility] Start: 02-22-2004 PAP TESTING PAP TESTING [facility] Start: 02-22-2004 Screening for malign ant neoplasm of cervix Pap Smear [facility] Start: 2002 Urine microalbumin profile DTAP,TDAP,TD (1 - Tdap) [facility] Start: 2001 ANNUAL PCP TEAM PAEDIATRIC THORACIC PHYSICIAN 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 VISIT ANNUAL PCP TEAM CHRONIC DISEASE VISIT [facility] Start: 2001 BP CONTROLLED (<130/80) BP CONTROLLE D (<130/80) [facility] Start: 2001 HEPATITIS C SCREENING HEPATITIS C SC REENING [facility] Start: 2001 HIV SCREENING HIV SCREENING [facility] Start: 2001 SPIROMETRY SPIROMETRY [facility] Start: 1989 PNEUMOCOCCAL (1 - PCV) PNEUMOCOCCAL (1 - PCV) [facility] Patient referral [facility] Work Phone: [facility] Immunizations Immunization Date Immunization Notes Care Provider Fa [facility] 07-14-2024 influenza virus vaccine, unspecified formulation Godwin Keyes MEDICAID ELIGIBILITY SPECIALIST Work Phone: [facility] 11-11-2020 SARS-CoV-2 (COVID-19 ) mRNA-1273 vaccine Zack BERMAN [facility] [place] Comment on above: Result Comment: 2023: TPV20 09-28-2020 COVID-19 vaccine, full dose (MODERNA) Lazara Woods MD Work Phone: [facility] Comment on above: Result Comment: 2023: TPV20 07-01-2020 influenza, injectable, quadrivalent, preservative free Lazara Woods MD Work Phone: [facility] 07-01-2020 influenza virus vaccine, unspecified formulation Godwin Keyes MEDICAID ELIGIBILITY SPECIALIST Work Phone: [facility] 06-17-2020 influenza virus vaccine, unspecified formulation Lazara Woods MD Work Phone: [facility] NEGATED: Highlighted row has not occurred!11-11-2023 influenza virus vaccine, unspecified formulation Zack GARVINPer [facility] [place] Payers Date Payer Category Payer Self-pay [id number] 2022 Medicaid [id number] 2022 Private Health Insurance [id number] 2022 Unknown [id number] [id number]. [id number] 2022 Unknown [id number] 2018 Medicaid UHC MEDICAID UHC COMMUNITY PLAN MEDICAID [id number] 2018-Present [phone] [address] [place] [address] Medicaid [id number]. [id number] 1983 Unknown [id number] 2.840.1.548638.3.579.2. 593 1983 Unknown [id number] 2.840.1.539483.3.579.2. 593 1983 Unknown [id number] 2.840.1.731370.3.579.2. 593 1983 Unknown [id number] 2.16840.1.489932.3.579.2. 593 1983 Unknown [id number] 2.16840.1.914340.3.579.2. 593 1983 Unknown [id number] 2.16840.1.919489.3.579.2. 593 1983 Unknown [id number] 2.16840.1.984159.3.579.2. 593 1983 Unknown [id number] 2.16840.1.560996.3.579.2. 72 1983 Unknown [id number] 2.840.1.624382.3.579.2. 1983 Unknown [id number] 2.840.1.030038.3.579.2. 1983 Unknown [id number] 2.840.1.064015.3.579.2. 1258 1983 Unknown [id number] 2.840.1.866480.3.579.2. 1258 1983 Unknown [id number] 2.840.1.893835.3.579.2. 1258 1983 Unknown [id number] 2.0.1.456599.3.579.2. 1258 1983 Unknown [id number] 2.840.1.264690.3.579.2. 1258 1983 Unknown [id number] 2.840.1.091086.3.579.2. 1258 1983 Unknown [id number] 2.840.1.142933.3.579.2. 1983 Unknown [id number] 2840.1.460011.3.579.2. 1983 Unknown [id number] 2.840.1.124627.3.579.2. 1983 Unknown [id number] 2.840.1.271340.3.579.2. 1983 Unknown [id number] 2.840.1.785411.3.579.2. 1983 Unknown [id number] 2.840.1.939067.3.579.2. 196 1959 Unknown [id number] Unknown [id number] 2.840.1.556294.3.579.2. 531 Social History Date Type Detail Facility Start: 03-01-2022 End: 03-25-2025 Tobacco smoking status Never smoked tobacco (finding) [facility] Tobacco smoking status Never Milind [facility] Start: 05-31-2024 End: 01-21-2025 Sex Assigned At Female [facility] Start: 06-27-2017 End: 02-06-2024 Tobacco use and exposure Smokeless tobacco non-user [facility] Start: 04-12-2022 End: 01-21-2025 Alcohol intake Current drinker of alcohol (finding) [facility] Start: 04-12-2022 End: 01-21-2025 Alcohol intake [facility] Start: 01-05-2020 History SDOH Alcohol Frequency 3 [facility] Start: 01-05-2020 History SDOH Alcohol Std Drinks 1 [facility] Start: 10-17-2020 History SDOH Alcohol Comment once a month, 1 drink [facility] Start: 1985 Sex Assigned At Not on file [facility] [place] Start: 04-01-2022 End: 04-11-2022 Exposure to SARS-CoV-2 (event) Not sure [facility] Start: 1985 Sex Assigned At Female F [facility] Start: 02-06-2024 [facility] History [...] ee and pop on occasion [facility] Sex Female (finding) [facility] Functional Status Date Assessment Result Facility 10-16-2022 Functional Status N/A [facility] 08-28-2022 Functional Status N/A [facility] Clinical Notes 05-04-2020 to 01-21-2025 DEE Rosales [...] Arminda Helton PA-C documented in this encounter [facility] 01-04-2025 History of Present illness Narrative Images [...] well -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 LUE Strength deltoid , biceps , triceps , wrist extensors , wrist flexor , life science taxonomist strength 5/5. RLE Strength illopsoas, quadriceps, tibialis [...] PLAN: - Continue following with pain management ([place]) Follow up in 2-3 months or sooner if symptoms worsen, fail to improve, or should a new neurological concern arise. Pt has been fully educated on their diagnosis, treatment options, follow up plan, and return instructions documented in this encounter [facility] 09-21-2024 History of Present illness Narrative Images [...] , wrist extensors , wrist flexor , life science taxonomist strength 5/5. LUE Strength deltoid , biceps , triceps , wrist extensors , wrist flexor , life science taxonomist strength 5/5. RLE Strength illopsoas, quadriceps, tibialis [...] knee reflex 2+. Rodriguez's Sign negative. Coordination: Hrupvo-oj-eiie testing is normal Rapid alternating movements are [...] and return instructions documented in this encounter [facility] 06-01-2024 History of Present illness Narrative [...] History: Diagnosis Date Acid reflux Anxiety Depression ([facility]/HCC) Depression with anxiety Fibromyalgia Hypertension ([facility]) Migraine ([facility]/HCC) PTSD (post-traumatic stress disorder) ([facility]) Past Surgical History: Procedure Laterality Date SECTION, [...] , wrist extensors , wrist flexor , life science taxonomist strength 5/5. LUE Strength deltoid , biceps , triceps , wrist extensors , wrist flexor , life science taxonomist strength 5/5. RLE Strength illopsoas, quadriceps, tibialis [...] knee reflex 2+. Rodriguez's Sign negative. Coordination: Mpoatm-mu-onwy testing is normal Rapid alternating movements are [...] and return instructions documented in this encounter [facility] 12-27-2023 Hospital Discharge instructions Follow Up Care 12/27/2023 13:04:11 With:ANTONELLA KOENIG, MASTER Martinez Address: [address] [place] [address]- When: only if needed [facility] [place] 11-11-2023 Note Chief Complaint consultation for skin [...] Brother. Colon ca (more content not included)... [facility] Comment on above: Result Comment: [...] concerns. Patient agrees with plan of care. [facility]07-28-2022 NoteHNO ID: [id number] Author: ST Rick Service: ? Author Type: Pasteurizer Helper Type: Progress Notes Filed: 04/12/2022 3:50 PM Note Text: DATE OF PHOTOS: 04/12/2022 Body Part: Breasts, Abdomen, Leg(s) and Arms ST Rick April 12, 2022 3:49 [facility]07-28-2022 History of Present illness Narrative* ST Rick - 04/12/2022 3:49 PM EDT DATE OF PHOTOS: 04/12/2022 Body Part: Breasts, Abdomen, Leg(s) and Arms ST Rick April 12, 2022 3:49 PM [facility] NoteHNO ID: [id number] Author: Lazara Woods MD Service: ? Author [...] this visit. ALLERGIES A (more content not included)...[facility]07-27-2022 History of Present illness Narrative* Lazara Woods [...] Past Histories independently gathered by the clinical business support assistant and the remaining scribed note [...] weeks. Lazara Woods MD [facility] Evaluation + Plan note Diagnostic Tests [...] Level 04/25/21 * Vitamin B12 Level 04/25/21 [facility]02-25-2022 NoteHNO ID: [id number] Author: Ena Mcginnis MD Service: ? Author [...] mcg, Iron 45-60 mg and calcium citrate 7010-3622 mg/day PHYSICAL EXAMINATION: Weight loss: BMI 23.2 [...] Plan: ? Doing great ? EGD Ena Mcginnis, [facility]09-30-2021 NoteHNO ID: [id number] Author: Ena Mcginnis MD Service: ? Author [...] mcg, Iron 45-60 mg and calcium citrate 3392-6185 mg/day ? COMPLETE REVIEW OF SYSTEMS Constitutional--Negative [...] which included preparing to see the patient, nqec-oe-wybe patient care and completing clinical documentation.[facility]08-10-2021 Evaluation + Plan note Future Scheduled Tests Laboratory* Copper Level 04/25/21 * Zinc Level 04/25/21 * Vitamin A Level 04/25/21 * Vitamin B1 04/25/21 * Vitamin B6 Lvl 04/25/21 * Vitamin D 25 Hydroxy 04/25/21 * Ferritin 04/25/21 * Folate Level 04/25/21 * Iron Level 04/25/21 * Magnesium Level 04/25/21 * Vitamin B12 Level 04/25/21 [facility] [id number] History of Past illness Narrative* Problem Noted Date Resolved Date Morbid obesity 05/04/2020 01/23/2021 documented as of this encounter (statuses as of 04/12/2022) [facility] History of Past illness Narrative* Problem Noted Date Resolved Date Morbid obesity 05/04/2020 01/23/2021 documented as of this encounter (statuses as of 04/12/2022) [facility] Future Appointments Appointment Date:09/24/2022 10:30:00 AM Scheduled Provider:Sridevi Goetz PA-C Location[facility] Appointment Type:Pain Management - Follow Up (FT) [facility] Hx of bariatric surgery- Primary Bariatric surgery status Excess skin documented [facility] this encounter [facility] noteNo assessment information availableRegency Hospital [facility] Work Phone: Evaluation note* Diagnosis Migraine without [...] lumbosacral intervertebral disc documented in this encounter [facility] Healthcare[facility]* Diagnosis Migraine without status migrainosus, not intractable, unspecified migraine type (CMS/HCC)- Primary Myalgia Unspecified myalgia and myositis Cervical spondylosis Cervical spondylosis without myelopathy Fibromyalgia Unspecified myalgia and myositis Degeneration of intervertebral disc of lumbar region, unspecified whether pain present documented in this encounter [facility] HealthcareEvaluation note* Diagnosis Migraine without status [...] point of neck documented in this encounter [facility]* Diagnosis Onset Date Resolution Status Admit Date Cervical spondylolysis acute Ju 2024 8:49am Migraine noneactive March 25 8:49am [facility] Work Phone: Hospital course Narrative No data available for this section [facility] Hospital Discharge instructions No data available for this section [facility] Progress note No data available for this section [facility] Summary Purpose Family History [...] FoundDocuments on File Type Date Recorded Patient Implementation Architect Expl anation Advance Directive(s) 12/16/2020 8:43 AM Advance Directive(s) 12/15/2020 1:00 PM Advance Directive(s) 10/24/2020 10:04 AM Advance Directive(s) 10/04/2020 4:19 PM Advance Directive Response Recorded Date/ Time Advance Directives No April 30, 2018 4:07pm Hospital Course Note HNO ID: [id number] Author: Douglas Torrez Service: General Surgery Author [...] (more content not included)... Note HNO ID: [id number] Author: Devonte Zurita Service: Anesthesiology Author Type: Nurse Roll Tender Type: Anesthesia Procedure Notes Filed: 10/24/2020 2:25 PM Note Text: ANESTHESIOLOGY PROCEDURE NOTE Airway General Information Procedure Start Time/Medication Administration: 10/24/2020 2:14 PM Patient location during procedure: OR Timeout Performed Pre-procedure: timeout performed Patient identity confirmed: arm band, care team foreman and patient Staffing Anesthesiologist: Brandon Stoddard DRILLING FIELD PROFESSIONAL: Pallavi Zurita Performed by: SHAVON Indications and [...] (more content not included)... Note HNO ID: [id number] Author: Devonte Zurita Service: Anesthesiology Author Type: Nurse Roll Tender Type: Anesthesia Procedure Notes Filed: 10/24/2020 2:26 [...] October 24, 2020 TIME: 2:26 PM CSN: [id number] Note HNO ID: [id number] Author: Douglas Torrez Service: General Surgery Author Type: Physician Type: Brief Op Note Filed: 10/24/2020 4:36 PM Note Text: BRIEF OPERATIVE NOTE [facility] LOG ID: [id number] SURGERY/PROCEDURE DATE: 10/24/2020 INCISION/PROCEDURE START TIME: 2:28 PM INCISION CLOSE/PROCEDURE END TIME: 4:31 PM SURGEON(S) AND STAFF PHARMACIST HOSPITAL(S): Surgeon(s) and Role: * Ena Mcginnis - Primary * Jarad Clarke (Res) DO Steven - Resident - Assisting * Presley Torrez - Resident - Assisting No Additional Staff PROCEDURES AND ANESTHESIA: Procedure(s) and Anesthesia Type: * LAPAROSCOPIC GASTRIC RESTRICTIVE SURG W/ BYPASS AND TREVOR-EN-Y Procedure Findings Note HNO ID: [id number] Author: Devonte Zurita Service: Anesthesiology Author Type: Nurse Roll Tender Type: Anesthesia Procedure Notes Filed: 10/24/2020 2:25 PM Note Text: ANESTHESIOLOGY PROCEDURE NOTE Airway General Information Procedure Start Time/Medication Administration: 10/24/2020 2:14 PM Patient location during procedure: OR Timeout Performed Pre-procedure: timeout performed Patient identity confirmed: arm band, care team foreman and patient Staffing Anesthesiologist: Brandon Stoddard DRILLING FIELD PROFESSIONAL: Pallavi Zurita Performed by: SHAVON Indications and [...] (more content not included)... Note HNO ID: [id number] Author: Devonte Zurita Service: Anesthesiology Author Type: Nurse Roll Tender Type: Anesthesia Procedure Notes Filed: 10/24/2020 2:26 [...] October 24, 2020 TIME: 2:26 PM CSN: [id number] Note HNO ID: [id number] Author: Douglas Torrez Service: General Surgery Author Type: Physician Type: Brief Op Note Filed: 10/24/2020 4:36 PM Note Text: BRIEF OPERATIVE NOTE [facility] LOG ID: [id number] SURGERY/PROCEDURE DATE: 10/24/2020 INCISION/PROCEDURE START TIME: 2:28 PM INCISION CLOSE/PROCEDURE END TIME: 4:31 PM SURGEON(S) AND STAFF PHARMACIST HOSPITAL(S): Surgeon(s) and Role: * Ena Mcginnis - Primary * Jarad Clarke (Res) DO Steven - Resident - Assisting * Presley Torrez - Resident - Assisting No Additional Staff PROCEDURES AND ANESTHESIA: Procedure(s) and Anesthesia Type: * LAPAROSCOPIC GASTRIC RESTRICTIVE SURG W/ BYPASS AND TREVOR-EN-Y Chief Complaint and Reason for Visit Chief Complaint Admit Date 3 month follow up March 25, 2025 8:49 am Reason for Visit Admit Date Cervical spondylolysis March 25, 2025 8 :49am Migraine March 25, 2025 8:49 am Additional Source Comments INFORMATION SOURCE (unrecogn ized section and content) DATE CREATED AUTHOR 08/11/2020 [facility] DATE CREATED AUTHOR AUTHOR'S ORGANIZ ATION 10/18/2020 [facility] DATE CREATED AUTHOR AUTHOR'S ORGANIZ ATION 12/17/2020 [facility] DATE CREATED AUTHOR AUTHOR'S ORGANIZ ATION 04/16/2022 [facility] DATE CREATED AUTHOR AUTHOR'S ORGANIZ ATION 05/10/[address] [facility] DATE CREATED AUTHOR AUTHOR'S ORGANIZ ATION 12/26/2023 [facility] DATE CREATED AUTHOR AUTHOR'S ORGANIZ ATION 01/09/2024 [facility] DATE CREATED AUTHOR AUTHOR'S ORGANIZ ATION 01/23/2025 [facility] EPIC DATE CREATED AUTHOR AUTHOR'S ORGANIZ ATION 04/02/2025 [facility] Care Team (unrecognized sect ion and content) Poultry Raiser Relationship Specialty Start Date End Date CastanoJose III, DO [address] [place] [address] PCP - General Family Practice 10/04/20 Poultry Raiser Relationship Specialty Start Date End Date Jose Castano III, DO [address] [place] [address] PCP - General Family Practice 10/04/20 Team Status: Inactive Member Role Status Dates Zack Berman MD FACS Attending Provider Active Start: December 25, 2023 End: December 25, 2023 Poultry Raiser Relationship Specialty Start Date End Date Candis Colindres MD [address] [place] [phone] PCP - General Family Medicine 01/30/24 Poultry Raiser Relationship Specialty Start Date End Date Candis Colindres MD [address] [place] [address] PCP - General Family Medicine 01/30/24 Poultry Raiser Relationship Specialty Start Date End Date Candis Colindres MD [address] [place] [phone] PCP - General Family Medicine 01/30/24 Poultry Raiser Relationship Specialty Start Date End Date Candis Colindres MD [address] [place] [phone] PCP - General Family Medicine 01/30/24 Poultry Raiser Relationship Specialty Start Date End Date Candis Colindres MD [address] [place] [address] PCP - General Family Medicine 01/21/25 Poultry Raiser Relationship Specialty Start Date End Date Candis Colindres MD [address] [place] [address] PCP - General Family Medicine 01/21/25 Team Status: Active Member Role Status Dates Candis Colindres DO Primary Care Provider Active Team Status: Inactive Member Role Status Dates Christianne Jiang APRN Attending Provider Active Start: March 25, 2025 End: March 25, 2025 Candis Colindres DO Primary Care Provider Active Start: March 25, 2025 End: March 25, 2025 Source Comments (unrecognize d section and content) In the event this informatio n is protected by the Federal Confidentiality of Alcohol and Drug Abuse Patient Records regulations: The Federal rules restrict any use of the information to criminally investigate or prosecute any alcohol or drug abuse patient.[facility] the event this information is protected by the Federal Confidentiality of Alcohol and Drug Abuse Patient Records regulations: The Federal rules restrict any use of the information to criminally investigate or prosecute any alcohol or drug abuse patient.[facility] Reason for Visit (unrecogniz ed section [...] BE BASED ON THE PRIMARY CLINICAL RECORDS. [facility]. provides no warranty or guarantee of the accuracy or completeness of information in this document.
--- NOTE | 2025-05-13 11:40 | PM.CN ---
Consult Note: HPI Data of Consult Patient: known to practice within the last 3 years Consult date: 04/21/25 Requesting Physician: Miladys Vivas NP Primary Care Provider: PETEY BURNETT Consult Narrative Reason for consult: low back pain Narrative: Nica Estrada a pleasant 40 year old female with chronic low back pain >12 months secondary to lumbar ddd, lumbar stenosis, and lumbar spondylosis presents for evaluation. pt noting low back pain aching 5/10 increasing to 10/10 with standing, walking, pushing, pulling, standing, walking, bending, activity. pain improved with reclining, stretching, heat, and sleep. utilizing tylenol prn, robaxin 500mg TID, zonegran 100mg BID, and duloxetine 90mg TID without side effects. recently underwent updated lumbar MRI with results below, similar from prior. since last visit has had increased pain radiating down left>right leg with worsening cramping, numbness and tingling to BLE. cc:: CC: Miladys Vivas NP Review of Systems ROS Musculoskeletal Reports: back pain and joint pain PFSH PFSH Medical History Change in bowel habits ?R19.4 - Change in bowel habit (ICD-10) Prediabetes ?R73.03 - Prediabetes (ICD-10) Obesity ?E66.9 - Obesity, unspecified (ICD-10) Obstructive hydronephrosis Migraines ?G43.909 - Migraine, unspecified, not intractable, without status migrainosus (ICD-10) Lipoma of back ?D17.1 - Benign lipomatous neoplasm of skin and subcutaneous tissue of trunk (ICD-10) Abdominal pain ?R10.9 - Unspecified abdominal pain (ICD-10) Dyssynergia ?R27.8 - Other lack of coordination (ICD-10) Depression ?F32.A - Depression, unspecified (ICD-10) Colon polyps ?K63.5 - Polyp of colon (ICD-10) Chronic constipation ?K59.09 - Other constipation (ICD-10) Asthma ?J45.909 - Unspecified asthma, uncomplicated (ICD-10) Hiatal hernia ?K44.9 - Diaphragmatic hernia without obstruction or gangrene (ICD-10) Fibromyalgia ?M79.7 - Fibromyalgia (ICD-10) Osteoarthritis ?M19.90 - Unspecified osteoarthritis, unspecified site (ICD-10) Low back pain ?M54.50 - Low back pain, unspecified (ICD-10) Anxiety ?F41.9 - Anxiety disorder, unspecified (ICD-10) Hypercholesterolemia ?E78.00 - Pure hypercholesterolemia, unspecified (ICD-10) Hypertension ?I10 - Essential (primary) hypertension (ICD-10) Surgical History H/O gastric bypass ?Z98.84 - Bariatric surgery status (ICD-10) S/P foot surgery, right ?Z98.890 - Other specified postprocedural states (ICD-10) S/P cholecystectomy ?Z90.49 - Acquired absence of other specified parts of digestive tract (ICD-10) S/P ?Z98.891 - History of uterine scar from previous surgery (ICD-10) Family History Other Family history of myocardial infarction Social History Within the past year, how often did you have a drink containing alcohol: 2-4 times a month Smoking status: Never smoker Non-prescribed substance use: denies use 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 Highest level of school completed/degree received: some college, no degree Meds Home Medications and Allergies Home Medications ?Medication ?Instructions ?Recorded ?Confirmed ?Type alprazolam 0.25 mg tablet (Xanax) 0.25 mg PO DAILY PRN anxiety 03/27/23 03/15/25 History duloxetine 30 mg capsule,delayed 90 mg PO QDAY 03/27/23 03/15/25 History release cariprazine 1.5 mg capsule 1.5 mg PO DAILY 08/09/23 03/15/25 History (Vraylar) ondansetron 4 mg disintegrating 4 mg PO DAILY PRN nausea and 08/09/23 03/15/25 History tablet vomiting rimegepant 75 mg disintegrating 75 mg PO DAILY PRN migraine 08/09/23 03/15/25 History tablet (Nurtec ODT) headache trazodone 50 mg tablet 50 mg PO DAILY 08/09/23 03/15/25 History pregabalin 100 mg capsule (Lyrica) 100 mg PO TID #90 caps 09/23/24 03/15/25 Rx tizanidine 4 mg capsule See Rx Instructions .Route 09/23/24 03/15/25 Rx .COMPLEX PRN muscle spasticity #180 caps hydroxyzine pamoate 50 mg capsule mg 02/01/25 History Allergies Allergy/AdvReac Type Severity Reaction Status Date / Time latex Allergy Severe Rash Verified 03/15/25 10:47 amitriptyline AdvReac Mild Nausea Verified 03/15/25 10:47 NSAIDS (Non-Steroidal AdvReac Unknown Verified 03/15/25 10:47 Anti-Inflamma Exam Constitutional Documenting provider has reviewed patient's vital signs: yes Common normals: no apparent distress, oriented x3, healthy appearing, alert and well nourished General appearance: cooperative HENMT Common normals: normocephalic, hearing grossly normal bilaterally and moist oral mucous membranes Head and scalp: normocephalic Eye Common normals: PERRL Pupil: PERRL Neck & C-Spine Common normals: full ROM General: normal visual inspection Chest Common normals: inspection of chest normal Respiratory Common normals: normal respiratory effort, no retractions and no use of accessory muscles Back & Pelvis Lumbar spine/lower back: ROM limited, pain with ROM, lumbar spinal tenderness, straight leg raise positive right and straight leg raise positive left Other: decreased sensation bilateral L5/S1 strength 4/5 in BLE Neuro Common normals: oriented x3 Sensorium/orientation: alert Psych Common normals: mental status grossly normal, thought process normal, cooperative, affect normal, speech normal and activity/motor behavior normal Speech: normal speech Thought process: normal thought process Results Imaging lumbar mri: Attestation: I have reviewed the pertinent imaging results. Radiologist's impression: In keeping with the prior dictation, there is partial lumbarization of S1 with rudimentary disc at S1-S2. Lumbar vertebral heights and alignment maintained. Mild intervertebral space narrowing L3-L5 and moderate intervertebral space narrowing at L5-S1. Conus medullaris terminates normally at L1-L2. Nerve roots of the cauda equina are unremarkable. Paraspinal soft tissues are unremarkable. T12-L3: No significant disc disease, central canal or neural foraminal narrowing identified. L3-4: Minor broad-based bulge with mild facet arthropathy. There is a dorsal subchondral cysts versus synovial cyst involving the left facet joint. No significant canal or neural from narrowing identified. L4-5: Circumferential disc bulge with broad-based central bulge. Mild canal narrowing. Mild right mild to moderate left neural from narrowing. Wtvk-iu-mguevvqd facet arthropathy. L5-S1: Circumferential disc bulge with left central/subarticular zone extrusion dorsally displacing the traversing left S1 nerve root. There is moderate facet arthropathy. Jkio-qm-squnppyi right neural foraminal narrowing and moderate left neural foraminal narrowing identified. Additional Findings Additional findings: If on a controlled substance or opioids, I have checked an [place] report on this patient and there are no aberrancies noted in the prescribing history.??If on a controlled substance or opioid a drug screen was completed and reviewed within the last year, and if there has not been a drug screen completed we ordered one today to monitor higher risk, state monitored pain medication use. As part of providing excellent, safe, comprehensive care, the following was completed at our patient's visit: 1. A medication reconciliation and review to ensure accurate knowledge of current/active medications, including asking our patients to inform us about any brmg-ihe-ybsxoqh medications or herbal remedies/nutritional supplements/alternative remedies. 2. A review to specifically ensure our patients have had annual screening for screening for depression, screening for tobacco use, and screening for unhealthy alcohol use. For concerning screenings had a discussion with the patient, provided patient education, and recommended follow-up with primary care provider when appropriate. If patient noted with a risk of falling, they received education on strength, gait, and balance training to prevent future risk of falling. Portions of this note may have been carried over from the previous visit and updated as appropriate. Please note this office utilizes paper charting in addition to the electronic medical record. A list of current medications, vitals, and PMH is available there as the clinical staff outside of myself do not have access to [employer] charting during the clinic day operations. As part of providing quality comprehensive care the current medications, vitals, and PMH were reviewed in the paper chart. Assessment and Plan Assessment and Plan (1) Lumbar stenosis with neurogenic claudication: Assessment and Plan: The patient has had over 3 months of moderate to severe low back pain with functional impairment and inadequate response to conservative care including NSAIDS (unless there are contraindication such as concurrent blood thinners), multiple oral or topical pain medications, and home exercise program/physical therapy.? Patient has completed >6 weeks of guided home exercise program and/or formal physical therapy program without relief of their symptoms.? The Oswestry Disability Index was completed, and the patient scored a 47%.?worsening from prior The patient noted the following:?? moderate to severe pain impacting ADLs, sitting, standing, walking, social life, travel (2) Lumbar disc displacement without myelopathy: (3) Myalgia: (4) Sacroiliitis: (5) Lumbar spondylosis: Plan repeat bilateral L5-S1 TFESI under fluoroscopy for lumbar stenosis with NC and lx disc bulg, prior injection provided at least 50% improvement for 3 months dc lyrica, continue zonegran 100mg BID increase robaxin 500-1000mg TID PRN pain/spasms continue HEP as tolerated f/u 2 weeks after injection
== END 2025-05-13 11:23 | disposition home or self-care (01) ==
LOC: PM 11:22
PROVIDERS: PCP Physician Assistant; Visit Provider Nurse Practitioner
DX: M48.062 Spinal stenosis, lumbar region with neurogenic claudication (principal); M51.26 Other intervertebral disc displacement, lumbar region; M79.18 Myalgia, other site; M46.1 Sacroiliitis, not elsewhere classified; M47.816 Spondylosis without myelopathy or radiculopathy, lumbar region
CPT/HCPCS: G0463

== ENCOUNTER 2025-06-21 07:49 | Day surgery (SDC) | payer OTHER, SELFPAY ==
--- OUTSIDE RECORDS SUMMARY | 2025-06-21 07:53 | XMS_ITS | CCD ---
Author Organization [facility] CliniSynj Care Team Providers Care Head Control Clerk Name Role Phone Jose Castano III Primary Care Physician Eyad RSOAS DO, Rolland R Primary Care Provider MISC, [...] Consulting Unavailable MD Zack Berman Attending Provider [phone] Zack Berman Attending Unavailable Zack Berman Admitting Unavailable NILPer, Zack Gardiner Attending Unavailable Jose Castano Referring Unavailable Zack BERMAN Attending Unavailable Zack BERMAN Attending Unavailable Bernadine KOENIG, Candis Primary Care Provider Candis Colindres MD Primary Care Provider [phone] ARMINDA HELTON Attending Unavailable ARMINDA HELTON Attending Unavailable AUDREY VELA Attending Unavailable JOSE CASTANO Referring Unavailable GODWIN KEYES Attending Unavailable GODWIN KEYES Attending Unavailable GODWIN KEYES Attending Unavailable Christianne Jiang APRN Attending Provider Candis Colindres DO Primary Care Provider [phone] Giedraitis MD, Andrius Vytautas Attending Unavailable Giedraitis [...] eruption (morphologic abnormality), Other: See Comments, Rash [facility] (20 sources) SUMAtriptan; Translations: [sumatriptan] Drug Allergy 7 Other: See Comments, GI intolerance [facility] (1 source) Amitriptyline Drug Allergy [facility] (1 source) NSAIDs Drug allergy (disorder) [facility] (1 source) Plasmin Drug Allergy [facility] (3 sources) Adhesive bandage; Translations: [Adhesive Bandage] Propensity to adverse reactions to substance [facility] [place] (1 source) SUMAtriptan Drug Allergy 8 [facility] Rep[facility] (11 sources) Wound Dressing Adhesive Propensity to adverse reactions 4 [facility] (1 source) NSAIDS (Non-Steroidal Anti-Inflamma Propensity to adverse reactions 5 upset stomach [facility] 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 Medications Current Medications Medication Drug Class(es) Dates Sig (Normalized) Sig (Original) [id number] 200 actuat albuterol 0.09 mg/actuat metered dose [...] Start: 11-13-2023 take 1 capsule by mo [facility] once daily atomoxetine (Strattera) 80 MG capsule Take 80 mg by mouth Daily 11/13/2023 Active Start: 10-28-2023 take 1 capsule by mo [facility] once daily in the morning Strattera 60 mg Cap 60 mg = 1 cap(s), Oral, qAM, Refills(s) 0 Start Date: 10/28/23 Status: Ordered Start: 10-28-2023 take 1 capsule by mo [facility] once daily in the morning Strattera 40 [...] (Ineffective) Start: 10-28-2023 [facility] as needed for [...] Daily, # 50 tab(s), Refills(s) 1, Pharmacy: [facility], 155, cm, 01/25/21 14:00:00 EDT, Height/Length Dosing, 77.7, kg, 01/25/21 14:00:00 EDT, Weight Dosing Start Date: 01/25/21 Status: Ordered cariprazine 1.5 mg oral capsule (14 sources) Atypical Antipsychotic Start: 5 take 1 capsule by mouth once daily Cariprazine (Vraylar) 1.5 mg capsule Active 1.5 MG PO Daily March 25, 2025 12:00am Complies with drug therapy Start: 10-28-2023 take 1 capsule by [facility] once daily Vraylar 1.5 MG capsule Take 1 capsule by mouth Daily 12/24/2023 Active dicyclomine hydrochloride 10 mg oral capsule (8 sources) Anticholinergic Start: 03-01-2022 take 4 capsules by mouth four times daily as needed for pain Bentyl 10 mg Cap 40 mg, Oral, QID, PRN Pain, # 45 cap(s), Refills(s) 4, Pharmacy: [facility], 155, cm, 03/01/22 15:01:00 EDT, Height/Length [...] 2025 12:00am Complies with drug therapy levonorgestrel 0.156308 mg/hr intrauterine system (14 sources) Progestin, Progestin-containing [...] Comment on above: Take 1 capsule by [facility] three times daily for 14 [...] on above: Take 1,000 mcg by mo [facility] once daily. Problems Active Problems Problem Classification [...] region] Episodic Other aftercare (1 source) Other prison (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 therapy; Translations: [OTH CARE HOME CURRENT DRUG THERAPY] Onset: 2 Episodic Other [...] discussed. Consent was given by the patient. [facility] Ambulatory Visit Summaryon 0 01-07-2024 Ambulatory Visit [...] Martinez When: Only if needed Where: [address] [facility] [place] [address]- Medications What How Much When Instructions Unchanged [...] choosing us for your care. Normal [facility] General Surgery Office/Clini c Noteon 01-07-2024 [...] Martinez Only if needed [address] [place] [address]- Additional Instructions: Problem List/Past Medical [...] 09/28/2020 Recorded 2023-10-28: TPV20 Normal [facility] Comment on above: Result Comment: Elec tronically Signed By: ANTONELLA KOENIG, Zack Gardiner\.br\Date and Time Signed: 01/07/24 16:13 EDT Operative Reporton Operative Report [id number] [facility] Pathology Noteon 12-27-2023 Pathology Note [id number]#[id number] [facility] Varun 12-25-2023 L Specimen: [id number] eceived: 12/25/23-1355 Status: SOUT Req Num: [id number] Spec Type: Surgical Subm Dr: Zack Berman MD FACS Tissues: A Lipoma (LT BACK) Procedures: HE, Gross/Micro L3 Age/ Patient Sex Location Account Attending Physician Nica Estrada 38/F LABELL [id number] Zack Berman MD FACS SPEC NUM: [id number] RECD: 12/25/23 STATUS: LAITH JUNE NUM: [id number] JAVI: 12/25/23 [facility] DR: Zack Berman MD FACS ENTERED: 12/25/23 [facility] DR: Carlos,Lab SPEC TYPE: Surgical DEPT: MJ [...] no obvious areas of hemorrhage or necrosis. [employer] Technician sections are submitted A1. RG Clinical history: Lipoma, path pending CPT Codes 89432 -------- -------- Specimen: [id number] Received: 12/25/23 Status: LAITH Vieirascott Num: [id number] Spec Type: Surgical Subm Dr: Zack Berman MD FACS Tissues: A Lipoma (LT BACK) Procedures: HE, Gross/Micro L3 -------- Patient: Nica Estrada [id number] (Continued) -------- Signed (signature on file) Darren Dias MD 12/26/23 1322 Normal [facility] Consent for Procedure/Surger yon 11-12-2023 Consent for Procedure/Surgery [id number] Normal [facility] Consent for Procedure/Surgery [id number]#1.00TIFF [facility] Ambulatory Visit Summaryon 0 11-11-2023 Ambulatory Visit [...] us for your care. Normal [facility] Physician Referralon 024 Physician Referral [id number]#[id number] Normal [facility] PREG HCG QUALon 04-20-2022 , QUAL Negative Normal NEGATIVE [facility] Comment on above: Performed By: #### P REG #### [facility] [address] [place] [address] Dr. Refugio Apple CNOVon 04-12-2022 CNOV Office Visit (PLASMN ) NICA ESTRADA ([id number]) 1985 F Date Time Provider Department 04/12/22 [...] times d (more content not included)... Normal [facility] PREG HCG QUALon 04-06-2022 , QUAL Negative Normal NEGATIVE [facility] Comment on above: Performed By: #### P REG #### [facility] [address] [place] [address] Dr. Refugio Apple CHEMISTRYOrdered By: SYSTEM SYSTEM [...] CNOV Office Visit (GENSS ) NICA ESTRADA ([id number]) 1985 F Date Time Provider Department 11/10/21 [...] mcg, Iron 45-60 mg and calcium citrate 2442-0723 mg/day PHYSICAL EXAMINATION: Weight loss: BMI 23.2 [...] Ena Mcginnis MD Referring Provider: ENA MCGINNIS [[id number]] Allergies As of Date: 11/10/2021 Noted Allergy [...] JUANITA (a (more content not included)... Normal [facility] CONon 11-10-[address] [facility] CON EXAMINATION: MRI [facility] CON HISTORY: Cervical spondylosis without myelopathy COMPARISON: [...] by: MANOHAR ALONZO Date: 2021-11-10 14:28 Normal [facility] CNOVon 06-15-2021 CNOV Office Visit (GEO210 ) NICA ESTRADA ([id number]) 1985 F Date Time Provider Department 06/15/21 11:30 AM ENA MCGINNIS [id number] During your visit today, we recorded the [...] call directly to schedule upper endoscopy at [phone]. Please leave a message if you receive [...] is especially important if you have had nfeiy-ewwfesfxs-wqpqg surgery in the past. How is an [...] minutes for (more content not included)... Normal [facility] HISTORY PHYSICALon HISTORY PHYSICAL HNO ID: [id number] Author: Kalpana Otero MD Service: General Surgery [...] December 16, 2020 TIME: 9:33 AM Normal [facility] NURSING PROGon 12-16-2020 NURSING PROG HNO ID: [id number] Author: Yashira LauRn) DEEPTHI Nova Service: Nursing [...] None Electronically Signed By: Yashira Nova RN [facility] PT EDon 12-16-2020 PT ED HNO ID: [id number] Author: Manohar (Rn) Senia RN Service: Nursing [...] None Electronically Signed By: Manohar Conn RN [facility] NURSING PROGon 10-25-2020 NURSING PROG HNO ID: [id number] Author: Diego Abad RN Service: ? Author Type: Registered Nurse Type: Nursing Progress Note Filed: 10/25/2020 2:09 AM Note Text: Nursing Progress Note Patient Name: Nica Estrada Patient Location: [address] Daily Note: 2000: Assessment complete see NPR. Pt present w/ nausea Zofran given. Pain 8/10 PRN pain med given. 0100: Nausea concerned by pt. Paged for second like prevention. 0130: Compazine ordered/given. No cough or SOB at this time. Lap sites intact no bruising. No gas passed yet. This note was completed by: Diego Abad [facility] PLAN OF CAREon 10-25-2020 PLAN OF CARE HNO ID: [id number] Author: Davina Bonilla (Digital Assent) Service: Pharmacy Author Type: ? Type: Plan of Care Filed: 10/25/2020 2:56 PM Note Text: Pharmacy Discharge Medication Service: This patient has elected to receive their discharge prescriptions through the [facility] Bedside Prescription Delivery program. The prescriptions are currently being processed. A follow-up note will be entered once the prescriptions have been filled and delivered to the patient. Please contact me with any questions or updates to the patient's discharge medications. Davina Bonilla (Digital Assent) DCT Contact Info: [id number] [facility] PLAN OF CARE HNO ID: [id number] Author: Davina Bonilla (Digital Assent) Service: Pharmacy Author Type: ? Type: Plan of Care Filed: 10/25/2020 2:56 PM Note Text: [employer] BEDSIDE DELIVERY SURVEY 1. Patient to use [facility] Bedside Delivery - YES Insurance Information as follows: 2. Insurance card on file - YES 3. Credit card for payment - N/A [facility] PLAN OF CARE HNO ID: [id number] Author: Davina Bonilla (Digital Assent) Service: Pharmacy Author Type: ? Type: Plan [...] or your Primary Care Provider. Davina Bonilla (Sales And Service Agent) PAGER: [phone] October 25, 2020 2:56 PM [facility] PROGRESSon 10-25-2020 PROGRESS HNO ID: [id number] Author: Presley Torrez Service: General Surgery Author [...] DATE: October 25, 2020 TIME: 7:02 AM [facility] PROGRESS HNO ID: [id number] Author: Juliet Lilly Service: General Surgery Author [...] care Juliet Lilly MD General Surgery PGY1 [facility] PT EDon 10-25-2020 PT ED HNO ID: [id number] Author: Geoff Sheets) Krunal Service: Nutrition Therapy Author Type: Nurse Wound Type: Patient Education Filed: 10/25/2020 12:04 PM [...] October 25, 2020 TIME: 12:04 PM PAGER: [phone] [facility] ANES POSTPROC EVALon 021 ANES POSTPROC EVAL HNO ID: [id number] Author: Brandon Stoddard Service: Anesthesiology Author Type: [...] October 24, 2020 TIME: 4:58 PM CSN: [id number] [facility] ANES PRE-OPon 10-24-2020 ANES PRE-OP HNO ID: [id number] Author: Colin Archer Service: Anesthesiology Author Type: [...] within 48 hours of Surgery/Procedure. SIGNATURE: Colin Arcehr MD PATIENT NAME: Nica Estrada DATE: October 24, 2020 TIME: 1:18 PM CSN: [id number] [facility] NURSING PROGon 10-24-2020 NURSING PROG HNO ID: [id number] Author: Sridevi LauRn) DEEPTHI Triana Service: Nursing Author Type: Registered Nurse Type: Nursing Progress Note Filed: 10/24/2020 6:56 PM Note Text: Nursing Progress Note Patient Name: Nica Estrada [address] Location[id number] Transfer Note: Patient transferred into room/unit PK325 in stable condition. Actions taken: No futher actions taken at this time. at bedside. Will continue to monitor and check with patient. This note was completed by: Sridevi Triana RN [facility] NURSING PROG HNO ID: [id number] Author: Gege (Rn) DEEPTHI Kenney Service: Nursing [...] None Electronically Signed By: Gege Kenney RN [facility] OPERATIVE NOon 10-24-2020 OPERATIVE NO HNO ID: [id number] Author: Ena Mcginnis Service: General Surgery Author Type: Physician Type: Operative Report Filed: 10/26/2020 11:07 AM Note Text: [facility] - Operative Report NICA ESTRADA : 1985 AGE: 35. SEX: F PATIENT TYPE: I HOSP SVC: GENS LOCATION: [id number] ATTENDING PHYSICIAN: Ena Mcginnis MD CSN NUMBER: [id number] DATE OF SURGERY/PROCEDURE: 10/24/2020 INCISION/PROCEDURE START TIME: 2:28 PM INCISION CLOSE/PROCEDURE END TIME: 4:31 PM PREOPERATIVE DIAGNOSIS: Morbid obesity, BMI of 42. POSTOPERATIVE DIAGNOSIS: 1. Morbid obesity. 2. Hiatal hernia. SURGEON: Ena Mcginnis MD TRACER BULLET SECTION SUPERVISOR: Presley Torrez MD. SURGERY/PROCEDURE: 1. Laparoscopic repair [...] The posterior cruroplasty was completed using 1 gkwwob-ok-lminj stitch using silk to tighten the sharri. [...] assisted in the absence of qualified surgical oncologist help. He created the pouch and created the jejunojejunostomy. Ena Mcginnis MD TA:[id number] Normal [facility] Confirm Blood Typeon 021 ABO/RH(D) Positive Normal [facility] Comment on above: Performed By: #### C ONABO ####[facility] [place], [place] [phone] HISTORY PHYSICALon HISTORY PHYSICAL HNO ID: [id number] Author: Amanda Shane (Pa) Service: ? Author Type: Physician Building Maintenance Mechanic Type: HANDP Filed: 10/17/2020 2:58 PM Note [...] fevers. Neuro: No history of TIA's, stroke, DEPUTY HEAD tumor, impaired sensorium, hemiplegia, paraplegia or quadraplegia. No neurological symptoms or problems. Respiratory: asthma, uses rescue about once every few weeks; no current resp sx. Had acute bronchitis last Fall, flared asthma for a while but is better now. Has environmental allergies Cardiovascular: No history of HTN requiring medication, no history of angina, CHF, ME, cardiac surgery or stents. Denies rest pain, gangrene or revascularization/amputation for PVD. No history of cardiovascular symptoms or problems. GI: Positive for GERD, no other GI sx. : No history of dysuria, frequency or incontinence,, stones or chronic kidney disease TALENT SCOUT: Negative for abnormal vaginal bleeding, abnormal vaginal [...] 2020 TIME: 2:42 PM PAGER/CONTACT #: Normal [facility] Type and SCR (30D)on 021 ABO/RH(D) Positive Normal [facility] Comment on above: Performed By: #### T SCR30 ####[facility] [place], [place] [phone] HOSPon 09-27-2020 HOSP Patient:Nica Estrada MRN: Height:5' [...] 44.1 % 10/17/2020 46.0 36.0 Progress Notes ([facility]): Marcella Saldana RN 10/13/2020 2:32 PM [...] Strength Tylenol. 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 I have also discussed medical [...] on recommendations of the Governor of the [facility]. Although we will perform appropriate precautions [...] patient. Ena Mcginnis MD Previous Version Normal [facility] HEPATITIS B SURFACE AB IMMUN ITY, QNon 08-11-2020 HEPATITIS B SURFACE AB IMMUNITY, QN >1000 Normal > OR = 10 [facility] Comment on above: Result Comment: Patient has immunity to hepatitis B virus. For additional information, please refer to http://education.TrustID.NantWorks/faq/HAL806 (This link is being provided for informational/ educational purposes only). Performed By: #### 8 475 #### [facility], [address] [place] [phone] [employer] Dedicated Truck Driver: Sixto Chandler MD Vital Signs Date Time Vital Sign Value Performing Clinician Facility 03-25-2025 08:53-0400 Body height 157.48 cm Candis Bernadine DO Work Phone: [facility] 03-25-2025 08:53-0400 Body mass index (BMI) [Ratio] 31.8 kg/m2 Candis Bernadine DO Work Phone: [facility] 03-25-2025 08:53-0400 Body weight 78.92 kg Candis Bernadine DO Work Phone: [facility] 03-25-2025 08:53-0400 Diastolic blood pressure 80 mm[Hg] Candis Bernadine DO Work Phone: [facility] 03-25-2025 08:53-0400 Heart rate 80 /min Candis Bernadine DO Work Phone: [facility] 03-25-2025 08:53-0400 Respiratory rate 18 /min Candis Bernadine DO Work Phone: [facility] 03-25-2025 08:53-0400 SaO2% (BldA) [Mass fraction] 98 % Candis Bernadine DO Work Phone: [facility] 03-25-2025 08:53-0400 Systolic blood pressure 140 mm[Hg] Candis Colindres DO Work Phone: [facility] 01-21-2025 08:26-0400 Body height 154.9 cm Arminda Helton PA Work Phone: [facility] 01-21-2025 08:26-0400 Body mass index (BMI) [Ratio] 32.69 kg/m2 Arminda Helton PA Work Phone: [facility] 01-21-2025 08:26-0400 Body weight 78.47 kg Arminda Helton PA Work Phone: [facility] 01-21-2025 08:26-0400 Diastolic blood pressure 82 mm[Hg] Arminda Helton PA Work Phone: [facility] 01-21-2025 08:26-0400 Heart rate 75 /min Arminda Helton PA Work Phone: [facility] 01-21-2025 08:26-0400 Respiratory rate 16 /min Arminda Helton PA Work Phone: [facility] 01-21-2025 08:26-0400 SaO2% (BldA) [Mass fraction] 97 % Arminda Helton PA Work Phone: [facility] 01-21-2025 08:26-0400 Systolic blood pressure 122 mm[Hg] Arminda Helton PA Work Phone: [facility] 01-04-2025 14:48-0400 Body height 157.5 cm Arminda Helton PA Work Phone: [facility] 01-04-2025 14:48-0400 Body mass index (BMI) [Ratio] 30.36 kg/m2 Arminda Helton PA Work Phone: [facility] 01-04-2025 14:48-0400 Body weight 75.3 kg Arminda Helton PA Work Phone: [facility] 01-04-2025 14:48-0400 Diastolic blood pressure 88 mm[Hg] Arminda Helton PA Work Phone: [facility] 01-04-2025 14:48-0400 Heart rate 84 /min Arminda Helton PA Work Phone: [facility] 01-04-2025 14:48-0400 Respiratory rate 16 /min Arminda Danie PA Work Phone: [facility] 01-04-2025 14:48-0400 SaO2% (BldA) [Mass fraction] 99 % Arminda Helton PA Work Phone: [facility] 01-04-2025 14:48-0400 Systolic blood pressure 140 mm[Hg] Arminda Helton PA Work Phone: [facility] 09-21-2024 10:03-0500 Body mass index (BMI) [Ratio] 30.8 kg/m2 Godwin Keyes COURIER DRIVER Work Phone: [facility] 09-21-2024 10:03-0500 Body weight 73.94 kg Godwin Keyes COURIER DRIVER Work Phone: [facility] 09-21-2024 10:03-0500 Diastolic blood pressure 93 mm[Hg] Godwin Keyes COURIER DRIVER Work Phone: [facility] 09-21-2024 10:03-0500 Heart rate 86 /min Godwin Keyes COURIER DRIVER Work Phone: [facility] 09-21-2024 10:03-0500 Systolic blood pressure 142 mm[Hg] Godwin Keyes COURIER DRIVER Work Phone: [facility] 06-01-2024 09:53-0400 Body height 154.9 cm Godwin Keyes COURIER DRIVER Work Phone: [facility] 06-01-2024 09:53-0400 Body mass index (BMI) [Ratio] 29.48 kg/m2 Godwin Keyes COURIER DRIVER Work Phone: [facility] 06-01-2024 09:53-0400 Body weight 70.76 kg Godwin Keyes COURIER DRIVER Work Phone: [facility] 06-01-2024 09:53-0400 Diastolic blood pressure 108 mm[Hg] Godwin Keyes COURIER DRIVER Work Phone: [facility] 06-01-2024 09:53-0400 Heart rate 80 /min Godwin Keyes COURIER DRIVER Work Phone: [facility] 06-01-2024 09:53-0400 Systolic blood pressure 146 mm[Hg] Godwin Keyes COURIER DRIVER Work Phone: [facility] 10-16-2022 12:53-0500 Diastolic blood pressure 80 mm[Hg] Otis Marcin [facility] 10-16-2022 12:53-0500 Heart rate 55 /min Otis Marcin [facility] 10-16-2022 12:53-0500 Mean blood pressure 89 mm[Hg] Otis Marcin [facility] 10-16-2022 12:53-0500 Respiratory rate 18 /min Otis Marcin [facility] 10-16-2022 12:53-0500 Systolic blood pressure 108 mm[Hg] Otis Marcin [facility] 08-28-2022 08:52-0500 Heart rate 70 /min Otis Marcin [facility] 08-28-2022 08:52-0500 SaO2% (BldA) [Mass fraction] 100 % Otis Marcin [facility] 08-28-2022 08:52-0500 Respiratory rate 16 /min Otis Marcin [facility] 08-28-2022 08:52-0500 Diastolic blood pressure 80 mm[Hg] Otis Marcin [facility] 08-28-2022 08:52-0500 Mean blood pressure 93 mm[Hg] Otis Marcin [facility] 08-28-2022 08:52-0500 Systolic blood pressure 121 mm[Hg] Otis Marcin [facility] 08-28-2022 08:46-0500 Heart rate 70 /min Otis Marcin [facility] 08-28-2022 08:46-0500 SaO2% (BldA) [Mass fraction] 100 % Otis Marcin [facility] 08-28-2022 08:46-0500 Body temperature 97.52 [degF] Otis Marcin [facility] 08-28-2022 08:46-0500 Diastolic blood pressure 69 mm[Hg] Otis Marcin [facility] 08-28-2022 08:46-0500 Mean blood pressure 80 mm[Hg] Otis Marcin [facility] 08-28-2022 08:46-0500 Systolic blood pressure 104 mm[Hg] Otis Marcin [facility] 08-28-2022 08:46-0500 Respiratory rate 16 /min Otis Marcin [facility] 08-28-2022 08:41-0500 Diastolic blood pressure 64 mm[Hg] Otis Marcin [facility] 08-28-2022 08:41-0500 Systolic blood pressure 102 mm[Hg] Otis Marcin [facility] 08-28-2022 08:40-0500 Heart rate 71 /min Otis Marcin [facility] 08-28-2022 08:40-0500 Respiratory rate 12 /min Otis Marcin [facility] 08-28-2022 08:40-0500 SaO2% (BldA) [Mass fraction] 100 % Otis Marcin [facility] 08-28-2022 08:35-0500 Respiratory rate 12 /min tOis Burch [facility] 08-28-2022 08:30-0500 Respiratory rate 12 /min Otis Burch [facility] 08-28-2022 07:17-0500 Mean blood pressure 78 mm[Hg] Otis Burch [facility] 08-28-2022 07:17-0500 Respiratory rate 16 /min Otis Burch [facility] 08-28-2022 07:17-0500 Body temperature 98.24 [degF] Otis Burch [facility] 04-12-2022 14:47-0400 Body height 152.4 cm Lazara Woods MD Work Phone: [facility] 04-12-2022 14:47-0400 Body temperature 98.91 [degF] Lazara Woods MD Work Phone: [facility] 04-12-2022 14:47-0400 Body weight 55.52 kg Lazara Woods MD Work Phone: [facility] 04-12-2022 14:47-0400 Diastolic blood pressure 92 mm[Hg] Lazara Woods MD Work Phone: [facility] 04-12-2022 14:47-0400 Heart rate 65 /min Lazara Woods MD Work Phone: [facility] 04-12-2022 14:47-0400 Systolic blood pressure 140 mm[Hg] Lazara Woods MD Work Phone: [facility] 03-01-2022 14:59-0400 Diastolic blood pressure 86 mm[Hg] Oral DIETZ [facility] 03-01-2022 14:59-0400 Heart rate 52 /min Oral DIETZ [facility] 03-01-2022 14:59-0400 Systolic blood pressure 130 mm[Hg] Oral DIETZ [facility] Encounters Encounter Date Encounter Type Care Provider Facility Start: 03-25-2025 End: 03-25-2025 ambulatory Candis Colindres DO Work Phone: [facility] Work Phone: Start: 03-25-2025 End: 03-25-2025 Patient encounter procedure Christianne Romero PRESS HAND SUPERVISOR -[facility] [employer] Work Phone: Start: 03-22-2025 End: 03-22-2025 ambulatory Andrius Vytautas Giedraitis Facility: [facility] Start: 03-15-2025 End: 03-15-2025 ambulatory Andrius Vytautas Gifletcheritis Facility: [employer] Start: 02-01-2025 End: 02-01-2025 ambulatory Andrius Vytautas [...] Start: 09-21-2024 End: 09-21-2024 Bamboo flowsraj Keyes COURIER DRIVER Work Phone: [facility] [address] Start: 09-21-2024 End: 09-21-2024 Bamboo flowsheet Godwin Keyes COURIER DRIVER Work Phone: [facility] [address] Start: 09-21-2024 End: 09-21-2024 Office outpatient visit 15 minutes Godwin Keyes COURIER DRIVER Work Phone: [facility] [address] Comment [...] 06-01-2024 End: 06-01-2024 Bamboo flowsheet Godwin Keyes COURIER DRIVER Work Phone: [facility] Start: 06-01-2024 End: 06-01-2024 Bamboo flowsheet Godwin Keyes COURIER DRIVER Work Phone: [facility] Start: 06-01-2024 End: 06-01-2024 ambulatory GODWIN KEYES Not Available Start: 06-01-2024 End: 06-01-2024 Office outpatient visit 15 minutes Godwin Keyes COURIER DRIVER Work Phone: [facility] Comment on above: Migraine without [...] procedure Zack BERMAN [facility] [employer] Start: 01-03-2024 ambulatory Zack BERMAN Facility:[facility] Start: 12-25-2023 End: 12-25-2023 ambulatory Zack Berman Facility:[facility] Start: 12-25-2023 End: 12-26-2023 ambulatory Zack BERMAN [facility] Work Phone: Start: 12-25-2023 End: 12-25-2023 Departed Referred MD Zack Berman Work Phone: [facility] Start: 11-11-2023 End: 11-12-2023 ambulatory Zack BERMAN Facility: [facility] Start: 11-11-2023 End: 11-26-2023 Pre-admission assessment Zack BERMAN [facility] Start: 10-21-2023 ambulatory Zack BERMAN Facility:[facility] Start: 10-16-2022 End: 10-16-2022 Pain Management Otis Burch [facility] Start: 08-28-2022 End: 08-28-2022 Pain Management Otis Burch [facility] Start: 05-04-2022 End: 05-05-[address] DOCTOR [...] End: 03-01-2022 Patient encounter procedure Oral DIETZ [facility] Start: 11-10-2021 End: 11-11-2021 ambulatory PETEY HORTENCIA Facility:[facility] Start: 05-24-2021 End: 06-28-[address] DOCTOR BEAR Facility:[facility] Procedures Date Procedure Procedure Detail Performing Clinician Start: 01-21-2025 Injection single/porcelain buildup assistant trigger point 3/> muscles Arminda PRICE Work Phone: Start: 12-25-2023 Excision of lipoma of back Zack BERMAN Start: 08-28-2022 Radiofrequency ablation of medial branch of lumbar nerve using fluoroscopic guidance Otis Burch Comment on above: L4/5 +L5/S1 40-50% relief Start: 10-17-2020 Antibody screen Comment on above: Performed By: #### [id number] ####[place] [id number] [place], [place] [phone] Start: 05-09-2020 Adult depression screening assessment Lazara [...] JUANITA GONZALEZ [address] [place] [address] Arminda Helton PA [address] [place], [place] [id number] JUANITA GONZALEZ Start: 03-25-2025 Patient referral [facility] Work Phone: Start: 03-25-2025 End: 03-25-2025 Patient encounter procedure 03/25/2025 9:00 AM EDT Office Visit JUANITA GONZALEZ [address] [place] [phone] Christianne Jiang NP [address] [place] JUANITA GONZALEZ Start: 01-21-2025 End: 01-21-2025 Clinical Support 01/21/2025 8:20 AM EDT Clinical Support JUANITA GONZALEZ [address] [place] [address] Arminda Helton PA [address] [place], [place] [id number] JUANITA GONZALEZ Start: 01-04-2025 End: 01-04-2025 Patient encounter procedure 01/04/2025 2:40 PM EDT Office Visit [facility] [address] [place] [address] Lazara Wagner NP [address] [place] [phone] [facility] [place] [address] Start: 01-04-2025 End: 01-04-2026 Inject Trigger Point, 1 or 2 Inject Trigger Point, 1 or 2 Procedures Routine Myalgia Trigger point of neck Neck pain Expected: 01/04/2025 (Approximate), Expires: 01/04/2026 [facility] Work Phone: Comment on above: Expected: 01/04/2025 (Approximate), Expires: 01/04/2026 Start: 09-21-2024 End: 09-21-2024 Patient encounter procedure [facility] [address] Comment on above: Arrived Start: 05-17-2024 Influenza vaccination Influenza Vacc ine (#1) [facility] Start: 2023 Screening for malign ant neoplasm of breast Mammogram [facility] Start: 05-17-2022 Influenza vaccination INFLUENZA (#1) [facility] Start: 05-09-2021 Adult depression screening assessment DEPRESSION SCREENING [facility] Start: 04-10-2021 COVID-19 VACCINE (3 - Booster for Moderna series) COVID-19 VACCINE (3 - Booster for Moderna series) [facility] Start: 2013 HPV TESTING HPV TESTING [facility] Start: 2013 Screening for malign ant neoplasm of cervix [facility] Start: 02-22-2004 PAP TESTING PAP TESTING [facility] Start: 02-22-2004 Screening for malign ant neoplasm of cervix Pap Smear [facility] Start: 2002 Urine microalbumin profile DTAP,TDAP,TD (1 - Tdap) [facility] Start: 2001 ANNUAL PCP TEAM LEAD ATG DEVELOPER 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 VISIT ANNUAL PCP TEAM CHRONIC DISEASE VISIT [facility] Start: 2001 BP CONTROLLED (<130/80) BP CONTROLLE D (<130/80) [facility] Start: 2001 HEPATITIS C SCREENING HEPATITIS C SC REENING [facility] Start: 2001 HIV SCREENING HIV SCREENING [facility] Start: 2001 SPIROMETRY SPIROMETRY [facility] Start: 1989 PNEUMOCOCCAL (1 - PCV) PNEUMOCOCCAL (1 - PCV) [facility] Patient referral [facility] Work Phone: [facility] Immunizations Immunization Date Immunization Notes Care Provider Fa [facility] 07-14-2024 influenza virus vaccine, unspecified formulation Godwin Keyes COURIER DRIVER Work Phone: [facility] 11-11-2020 SARS-CoV-2 (COVID-19 ) mRNA-1273 vaccine Zcak BERMAN [facility] [place] Comment on above: Result Comment: 2023: TPV20 09-28-2020 COVID-19 vaccine, full dose (MODERNA) Lazara Woods MD Work Phone: [facility] Comment on above: Result Comment: 2023: TPV20 07-01-2020 influenza, injectable, quadrivalent, preservative free Lazara Woods MD Work Phone: [facility] 07-01-2020 influenza virus vaccine, unspecified formulation Godwin Keyes COURIER DRIVER Work Phone: [facility] 06-17-2020 influenza virus vaccine, unspecified formulation Lazara Woods MD Work Phone: [facility] NEGATED: Highlighted row has not occurred!11-11-2023 influenza virus vaccine, unspecified formulation Zack GARVINPer [facility] [place] Payers Date Payer Category Payer Self-pay [id number] 2022 Medicaid [id number] 2022 Private Health Insurance [id number] 2022 Unknown [id number] [id number]. [id number] 2022 Unknown [id number] 2018 Medicaid UHC MEDICAID UHC COMMUNITY PLAN MEDICAID [id number] 2018-Present [phone] [address] [place] [address] Medicaid [id number]. [id number] 1983 Unknown [id number] 2.840.1.101245.3.579.2. 593 1983 Unknown [id number] 2.840.1.237391.3.579.2. 593 1983 Unknown [id number] 2.840.1.198726.3.579.2. 593 1983 Unknown [id number] 2.16840.1.943204.3.579.2. 593 1983 Unknown [id number] 2.16840.1.298177.3.579.2. 593 1983 Unknown [id number] 2.16840.1.530353.3.579.2. 593 1983 Unknown [id number] 2.16840.1.099875.3.579.2. 593 1983 Unknown [id number] 2.16840.1.199788.3.579.2. 72 1983 Unknown [id number] 2.840.1.187274.3.579.2. 1983 Unknown [id number] 2.840.1.198736.3.579.2. 1983 Unknown [id number] 2.840.1.297519.3.579.2. 1258 1983 Unknown [id number] 2.840.1.959067.3.579.2. 1258 1983 Unknown [id number] 2.840.1.048356.3.579.2. 1258 1983 Unknown [id number] 2.0.1.248493.3.579.2. 1258 1983 Unknown [id number] 2.840.1.916413.3.579.2. 1258 1983 Unknown [id number] 2.840.1.932887.3.579.2. 1258 1983 Unknown [id number] 2.840.1.633283.3.579.2. 1983 Unknown [id number] 2840.1.878881.3.579.2. 1983 Unknown [id number] 2.840.1.688173.3.579.2. 1983 Unknown [id number] 2.840.1.224111.3.579.2. 1983 Unknown [id number] 2.840.1.904229.3.579.2. 1983 Unknown [id number] 2.840.1.933168.3.579.2. 196 1959 Unknown [id number] Unknown [id number] 2.840.1.655001.3.579.2. 531 Social History Date Type Detail Facility Start: 03-01-2022 End: 03-25-2025 Tobacco smoking status Never smoked tobacco (finding) [facility] Tobacco smoking status Never [facility] Start: 05-31-2024 End: 01-21-2025 Sex Assigned At Female [facility] Start: 06-27-2017 End: 02-06-2024 Tobacco use and exposure Smokeless tobacco non-user [facility] Start: 04-12-2022 End: 01-21-2025 Alcohol intake Current drinker of alcohol (finding) [facility] Start: 04-12-2022 End: 01-21-2025 Alcohol intake [facility] Start: 01-05-2020 History SDOH Alcohol Frequency 3 [facility] Start: 01-05-2020 History SDOH Alcohol Std Drinks 1 [facility] Start: 10-17-2020 History SDOH Alcohol Comment once a month, 1 drink [facility] Start: 1985 Sex Assigned At Not on file C [facility] Start: 04-01-2022 End: 04-11-2022 Exposure to SARS-CoV-2 (event) Not sure [facility] Start: 1985 Sex Assigned At Female F [facility] Start: 02-06-2024 [facility] [...] on occasion [facility] Sex Female (finding) [facility] Functional Status Date Assessment Result Facility 10-16-2022 Functional Status N/A [facility] 08-28-2022 Functional Status N/A [facility] Clinical Notes 05-04-2020 to 01-21-2025 DEE [...] Arminda Helton PA-C documented in this encounter [facility] 01-04-2025 History of Present illness Narrative Images from the original note were not included. No chief complaint on file. 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 LUE Strength deltoid , biceps , triceps , wrist extensors , wrist flexor , sports management internship strength 5/5. RLE Strength illopsoas, quadriceps, tibialis [...] PLAN: - Continue following with pain management ([employer]) Follow up in 2-3 months or sooner if symptoms worsen, fail to improve, or should a new neurological concern arise. Pt has been fully educated on their diagnosis, treatment options, follow up plan, and return instructions documented in this encounter [facility] 09-21-2024 History of Present illness Narrative Images [...] , wrist extensors , wrist flexor , sports management internship strength 5/5. LUE Strength deltoid , biceps , triceps , wrist extensors , wrist flexor , sports management internship strength 5/5. RLE Strength illopsoas, quadriceps, tibialis [...] knee reflex 2+. Rodriguez's Sign negative. Coordination: [id number]-[id number] testing is normal Rapid alternating movements are [...] and return instructions documented in this encounter [facility] 06-01-2024 History of Present illness Narrative Images [...] History: Diagnosis Date Acid reflux Anxiety Depression ([facility]/HCC) Depression with anxiety Fibromyalgia Hypertension ([facility]) Migraine ([facility]/HCC) PTSD (post-traumatic stress disorder) ([facility]) Past Surgical History: Procedure Laterality Date SECTION, [...] , wrist extensors , wrist flexor , sports management internship strength 5/5. LUE Strength deltoid , biceps , triceps , wrist extensors , wrist flexor , sports management internship strength 5/5. RLE Strength illopsoas, quadriceps, tibialis [...] knee reflex 2+. Rodriguez's Sign negative. Coordination: Svydgg-ch-[id number] testing is normal Rapid alternating movements are [...] and return instructions documented in this encounter [facility] 12-27-2023 Hospital Discharge instructions Follow Up Care 12/27/2023 13:04:11 With:ANTONELLA KOENIG, MASTER Martinez Address: [address] [place] [address]- When: only if needed [facility] [employer] 11-11-2023 Note Chief Complaint consultation for skin [...] concerns. Patient agrees with plan of care. [facility]07-28-2022 NoteHNO ID: [id number] Author: ST Rick Service: ? Author Type: Data Input Clerk Type: Progress Notes Filed: 04/12/2022 3:50 PM Note Text: DATE OF PHOTOS: 04/12/2022 Body Part: Breasts, Abdomen, Leg(s) and Arms ST Rick April 12, 2022 3:49 [facility]07-28-2022 History of Present illness Narrative* ST Rick - 04/12/2022 3:49 PM EDT DATE OF PHOTOS: 04/12/2022 Body Part: Breasts, Abdomen, Leg(s) and Arms ST Rick April 12, 2022 3:49 PM [facility] NoteHNO ID: [id number] Author: Lazara Woods MD Service: ? Author [...] this visit. ALLERGIES A (more content not included)...[facility]07-27-2022 History of Present illness Narrative* [...] thigh laxity and striae. 4.5cm excess A/P: iNca is a 37 year old female w/ [...] Past Histories independently gathered by the clinical it support technician and the remaining scribed note [...] weeks. Lazara Woods MD [facility] Evaluation + Plan note Diagnostic Tests Pending [...] Level 04/25/21 * Vitamin B12 Level 04/25/21 [facility]02-25-2022 NoteHNO ID: [id number] Author: Ena Mcginnis MD Service: ? Author [...] mcg, Iron 45-60 mg and calcium citrate 7216-9645 mg/day PHYSICAL EXAMINATION: Weight loss: BMI 23.2 [...] ? Doing great ? EGD Ena Mcginnis, [facility]09-30-2021 NoteHNO ID: [id number] Author: Ena Mcginnis MD Service: ? Author [...] mcg, Iron 45-60 mg and calcium citrate 2345-3665 mg/day ? COMPLETE REVIEW OF SYSTEMS Constitutional--Negative [...] which included preparing to see the patient, [id number] patient care and completing clinical documentation.[facility]08-10-2021 Evaluation + Plan note Future Scheduled Tests Laboratory* Copper Level 04/25/21 * Zinc Level 04/25/21 * Vitamin A Level 04/25/21 * Vitamin B1 04/25/21 * Vitamin B6 Lvl 04/25/21 * Vitamin D 25 Hydroxy 04/25/21 * Ferritin 04/25/21 * Folate Level 04/25/21 * Iron Level 04/25/21 * Magnesium Level 04/25/21 * Vitamin B12 Level 04/25/21 [facility] [id number] History of Past illness Narrative* Problem Noted Date Resolved Date Morbid obesity 05/04/2020 01/23/2021 documented as of this encounter (statuses as of 04/12/2022) [facility]08-19-2020 History of Past illness Narrative* Problem Noted Date Resolved Date Morbid obesity 05/04/2020 01/23/2021 documented as of this encounter (statuses as of 04/12/2022) [facility] Appointments Appointment Date:09/24/2022 10:30:00 AM Scheduled Provider:Sridevi Goetz PA-C Location[facility] Appointment Type:Pain Management - Follow Up (FT) [facility] Diagnosis Hx of bariatric surgery- Primary Bariatric surgery status Excess skin [facility] this encounter [facility]No assessment [facility] Work Phone: Evaluation note* Diagnosis Migraine [...] lumbosacral intervertebral disc documented in this encounter [facility]* Diagnosis Migraine without status migrainosus, not intractable, unspecified migraine type (CMS/HCC)- Primary Myalgia Unspecified myalgia and myositis Cervical spondylosis Cervical spondylosis without myelopathy Fibromyalgia Unspecified myalgia and myositis Degeneration of intervertebral disc of lumbar region, unspecified whether pain present documented in this encounter [facility]* Diagnosis Migraine without status migrainosus, [...] 2024 8:49am Migraine noneactive March 25 8:49am [facility] Work Phone: Hospital course Narrative No data available for this section [facility] Hospital Discharge instructions No data available for this section [facility] Progress note No data available for this section [facility] Summary Purpose Family History [...] FoundDocuments on File Type Date Recorded Patient Land Mobile Radio 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 Note HNO ID: [id number] Author: Devonte Zurita Service: Anesthesiology Author Type: Nurse Professor Of Education Type: Anesthesia Procedure Notes Filed: 10/24/2020 2:25 PM Note Text: ANESTHESIOLOGY PROCEDURE NOTE Airway General Information Procedure Start Time/Medication Administration: 10/24/2020 2:14 PM Patient location during procedure: OR Timeout Performed Pre-procedure: timeout performed Patient identity confirmed: arm band, care pressure steamer tender and patient Staffing Anesthesiologist: Brandon Stoddard DOUGHNUT GLAZIER: Pallavi Zurita Performed by: SHAVON Indications and [...] (more content not included)... Note HNO ID: [id number] Author: Devonte Zurita Service: Anesthesiology Author Type: Nurse Professor Of Education Type: Anesthesia Procedure Notes Filed: 10/24/2020 2:26 [...] October 24, 2020 TIME: 2:26 PM CSN: [id number] Note HNO ID: [id number] Author: Douglas Torrez Service: General Surgery Author Type: Physician Type: Brief Op Note Filed: 10/24/2020 4:36 PM Note Text: BRIEF OPERATIVE NOTE [facility] LOG ID: [id number] SURGERY/PROCEDURE DATE: 10/24/2020 INCISION/PROCEDURE START TIME: 2:28 PM INCISION CLOSE/PROCEDURE END TIME: 4:31 PM SURGEON(S) AND TRACER BULLET SECTION SUPERVISOR(S): Surgeon(s) and Role: * Ena Mcginnis - Primary * Jarad Clarke (Res) DO Steven - Resident - Assisting * Presley Torrez - Resident - Assisting No Additional Staff PROCEDURES AND ANESTHESIA: Procedure(s) and Anesthesia Type: * LAPAROSCOPIC GASTRIC RESTRICTIVE SURG W/ BYPASS AND TREVOR-EN-Y Procedure Findings Note HNO ID: [id number] Author: Devonte Zurita Service: Anesthesiology Author Type: Nurse Professor Of Education Type: Anesthesia Procedure Notes Filed: 10/24/2020 2:25 PM Note Text: ANESTHESIOLOGY PROCEDURE NOTE Airway General Information Procedure Start Time/Medication Administration: 10/24/2020 2:14 PM Patient location during procedure: OR Timeout Performed Pre-procedure: timeout performed Patient identity confirmed: arm band, care pressure steamer tender and patient Staffing Anesthesiologist: Brandon Stoddard DOUGHNUT GLAZIER: Pallavi Zurita Performed by: SHAVON Indications and [...] (more content not included)... Note HNO ID: [id number] Author: Devonte Zurita Service: Anesthesiology Author Type: Nurse Professor Of Education Type: Anesthesia Procedure Notes Filed: 10/24/2020 2:26 PM Note Text: ANESTHESIOLOGY PROCEDURE NOTE PIV General Information Procedure Start Time/Medication Administration: 10/24/2020 2:15 PM Patient Location: OR Staffing Anesthesiologist: Brandon Stoddard Performed by: anesthesiologist Preparation Sterility Preparation: hand hygiene performed prior to procedure Site Prep: Chloraprep Procedure Details Indication: need for IV access Needle Size/Type: 18 gauge angiocath Orientation: Right Location: Hand SIGNATURE: Palalvi Zurita APRN.CRNA PATIENT NAME: Nica Estrada DATE: October 24, 2020 TIME: 2:26 PM CSN: [id number] Note HNO ID: [id number] Author: Douglas Torrez Service: General Surgery Author Type: Physician Type: Brief Op Note Filed: 10/24/2020 4:36 PM Note Text: BRIEF OPERATIVE NOTE [facility] LOG ID: [id number] SURGERY/PROCEDURE DATE: 10/24/2020 INCISION/PROCEDURE START TIME: 2:28 PM INCISION CLOSE/PROCEDURE END TIME: 4:31 PM SURGEON(S) AND TRACER BULLET SECTION SUPERVISOR(S): Surgeon(s) and Role: * Ena Mcginnis - [...] DATE CREATED AUTHOR AUTHOR'S ORGANIZ ATION 10/18/2020 [facility] DATE CREATED AUTHOR AUTHOR'S ORGANIZ ATION 12/17/2020 [facility] DATE CREATED AUTHOR AUTHOR'S ORGANIZ ATION 04/16/2022 [facility] DATE CREATED AUTHOR AUTHOR'S ORGANIZ ATION 05/10/2022 [facility] pital DATE CREATED AUTHOR AUTHOR'S ORGANIZ ATION 12/26/2023 [facility] DATE CREATED AUTHOR AUTHOR'S ORGANIZ ATION 01/09/2024 [facility] DATE CREATED AUTHOR AUTHOR'S ORGANIZ ATION 01/23/2025 [facility] EPIC DATE CREATED AUTHOR AUTHOR'S ORGANIZ ATION 04/02/2025 [facility] Care Team (unrecognized sect ion and content) Head Control Clerk Relationship Specialty Start Date End Date CastanoJose III, DO [address] [place] [address] PCP - General Family Practice 10/04/20 Head Control Clerk Relationship Specialty Start Date End Date Jose Castano III, DO [address] [place] [address] PCP - General Family Practice 10/04/20 Team Status: Inactive Member Role Status Dates Zack Berman MD FACS Attending Provider Active Start: December 25, 2023 End: December 25, 2023 Head Control Clerk Relationship Specialty Start Date End Date Candis Colindres MD [address] [place] [phone] PCP - General Family Medicine 01/30/24 Head Control Clerk Relationship Specialty Start Date End Date Candis Colindres MD [address] [place] [address] PCP - General Family Medicine 01/30/24 Head Control Clerk Relationship Specialty Start Date End Date Candis Colindres MD [address] [place] [phone] PCP - General Family Medicine 01/30/24 Head Control Clerk Relationship Specialty Start Date End Date Candis Colindres MD [address] [place] [phone] PCP - General Family Medicine 01/30/24 Head Control Clerk Relationship Specialty Start Date End Date Candis Colindres MD [address] [place] [address] PCP - General Family Medicine 01/21/25 Head Control Clerk Relationship Specialty Start Date End Date Candis Colindres MD [address] [place] [address] PCP - General Family Medicine 01/21/25 [...] prosecute any alcohol or drug abuse patient.[facility] HealthcareIn the event this information is protected by the Federal Confidentiality of Alcohol and Drug Abuse Patient Records regulations: The Federal rules restrict any use of the information to criminally investigate or prosecute any alcohol or drug abuse patient.[facility] Reason for Visit (unrecogniz ed section and [...] BE BASED ON THE PRIMARY CLINICAL RECORDS. [facility] [employer] [facility]. provides no warranty or guarantee of the accuracy or completeness of information in this document.
[2025-06-21 07:55] VITALS: BP 132/89; PULSE 95; TEMP 36.5; O2SAT 100
[2025-06-21 08:25] VITALS: BP 127/63; PULSE 79; O2SAT 98
[2025-06-21 08:26] VITALS: BP 128/75; PULSE 82; O2SAT 98
[2025-06-21] MEDS: BUPIVACAINE HCL 0.25% PF 25 MG/10 ML VIAL INJ (08:28)
[2025-06-21] MEDS: 0.9 % SODIUM CHLORIDE 10 ML SYRINGE - SALINE FLUSH INJ (08:28)
[2025-06-21] MEDS: IOHEXOL 240 MG/ML - 10 ML VIAL INJ (08:29)
[2025-06-21] MEDS: METHYLPREDNISOLONE ACETATE 80 MG/ML VIAL INJ (08:29)
[2025-06-21] MEDS: LIDOCAINE HCL 2% 400 MG/20 ML MDV 3 ML INJ (08:29)
--- NOTE | 2025-06-21 08:32 | W.PM.PROCNOT ---
Date of procedure: 06/21/25 Pre-op diagnosis: Pain due to lumbar stenosis with neurogenic claudication Post-op diagnosis: same as pre-op Procedure: Procedure: Bilateral L5-S1 transforaminal epidural steroid injection Medications: Bupivacaine 0.25% 2cc, lidocaine 2% 1cc, depomedrol 80mg The patient was seen and examined in the preoperative holding area.? Informed consent was obtained and placed on the chart.? Patient was brought to the medical procedure unit and placed in the prone position where a timeout was completed verifying the correct patient, procedure site, position, and planned special equipment using sterile aseptic technique.? Under direct fluoroscopic visualization a 25-gauge Quincke tipped spinal needle was advanced at level left L5-S1 to the designated neural foramen where contrast dye was injected to show adequate spread.? There was no evidence of vascular or adverse uptake.? Epidural spread was appreciated.? The above-mentioned injectate was then placed in a 1.5 mL aliquot preceded by negative aspiration.? The needle was removed. The same procedure, at the same level, was completed on the opposite side. ? Patient was taken to the postprocedural recovery area and monitored for an appropriate length of time before found suitable for discharge in the accompaniment of a responsible adult. Anesthesia: Local Surgeon: Aaliyah Hampton Pathology: none sent Condition: stable Disposition: no change
== END 2025-06-21 08:34 | disposition home or self-care (01) ==
PROVIDERS: PCP Physician Assistant; Visit Provider Anesthesiology
DX: M48.062 Spinal stenosis, lumbar region with neurogenic claudication (principal); M54.50 Low back pain, unspecified
CPT/HCPCS: 64483; J0665; J1010; Q9966

== ENCOUNTER 2025-06-30 09:42 | Outpatient (OUT) | payer OTHER, SELFPAY ==
--- OUTSIDE RECORDS SUMMARY | 2025-06-30 09:47 | XMS_ITS | CCD ---
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 Name Role Phone Jose Castano III Primary Care Physician [phone] Eyad ROSAS DO, Rolland R Primary Care [...] Consulting Unavailable MD Zack Berman Attending Provider [phone] Zack Berman Attending Unavailable Zack Berman Admitting [...] Provider Candis Colindres DO Primary Care Provider [phone] Argentina Rowland DO Attending Provider Giedraitis MD, Andrius Vytautas Attending Unavailable [...] eruption (morphologic abnormality), Other: See Comments, Rash [facility] (20 sources) SUMAtriptan; Translations: [sumatriptan] Drug Allergy 7 Other: See Comments, GI intolerance [facility] (1 source) Amitriptyline Drug Allergy [facility] (1 source) NSAIDs Drug allergy (disorder) [facility] (1 source) Plasmin Drug Allergy [facility] (3 sources) Adhesive bandage; Translations: [Adhesive Bandage] Propensity to adverse reactions to substance [facility] [place] (1 source) SUMAtriptan Drug Allergy 8 [facility] (11 sources) Wound Dressing Adhesive Propensity to adverse reactions 4 [facility] (2 sources) NSAIDS (Non-Steroidal Anti-Inflamma Propensity to adverse reactions 5 upset stomach [facility] 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 Medications Current Medications Medication Drug Class(es) Dates Sig (Normalized) Sig (Original) [id number] 200 actuat albuterol 0.09 mg/actuat metered dose inhaler (11 sources) beta2-Adrenergic Agonist take 2 puff(s) by inhalation every four hours for wheezing albuterol HFA 90 mcg/act inhaler Inhale 2 puffs every 4 (four) hours if needed for wheezing Active atomoxetine 40 mg oral capsule (20 sources) Norepinephrine Reuptake Inhibitor Start: 03-25-2025 take 1 capsule by mouth once daily Start: 03-25-2025 take 1 capsule by mo uth once daily Start: 05-19-2024 take 1 capsule by mo uth once daily in the morning atomoxetine (Strattera) [...] oral tablet (2 sources) Stimulant Laxative Start: take 1 tablet by mouth once daily Dulcolax 5 mg Tab-EC 5 mg = 1 tab(s), Oral, Daily, # 50 tab(s), Refills(s) 1, Pharmacy: [facility] 1155, 155, cm, 01/25/21 14:00:00 EDT, Height/Length Dosing, 77.7, kg, 01/25/21 14:00:00 EDT, Weight Dosing Start Date: 01/25/21 Status: Ordered cariprazine 1.5 mg oral capsule (15 sources) Atypical Antipsychotic Start: take 1 capsule by mouth once daily Start: 10-28-2023 take 1 capsule by mo uth once daily Vraylar 1.5 MG capsule Take 1 capsule by mouth Daily 12/24/2023 Active dicyclomine hydrochloride 10 mg oral capsule (8 sources) Anticholinergic Start: 03-01-2022 take 4 capsules by mouth four times daily as needed for pain Bentyl 10 mg Cap 40 mg, Oral, QID, PRN Pain, # 45 cap(s), Refills(s) 4, Pharmacy: [facility] 1155, 155, cm, 03/01/22 15:01:00 EDT, Height/Length Dosing, 54, kg, 03/01/22 15:01:00 EDT, Weight Dosing Start Date: 03/01/22 Status: Ordered dicyclomine HCl (BENTYL ORAL) Take by mouth. 0 Active Comment on above: Take by mouth. DULoxetine 30 mg delayed release oral capsule (20 sources) Serotonin and Norepinephrine Reuptake Inhibitor Start: 03-25-2025 take 1 capsule by mouth once daily Start: 03-25-2025 take 1 capsule by mo uth once daily Start: 09-13-2024 take 1 capsule by mo uth once daily DULoxetine (Cymbalta) [address] capsule TAKE 1 CAPSULE BY MOUTH EVERY DAY FOR 30 DAYS 09/13/2024 Active Start: 11-23-2023 take 1 capsule by [facility] once daily DULoxetine (Cymbalta) 60 [...] propionate 0.05 mg/actuat metered dose nasal spray (13 sources) Corticosteroid Start: 03-25-2025 take 1 spray(s) nasal route once daily take 1 spray(s) nasal route once daily fluticasone (Flonase) 50 MCG/ACT nasal spray Administer 1 spray into each nostril Daily Shake gently. Before first use, prime pump. After use, clean tip and replace cap. Active 1.5 ml fremanezumab-vfrm 150 mg/ml prefilled syringe (14 sources) Start: 03-25-2025 End: 03-25-2025 Start: 04-06-2024 fremanezumab ( Ajovy) 225 MG/1.5ML auto-injector Indications: Migraine without status migrainosus, not intractable, unspecified migraine type (CMS/HCC) Inject one 225 mg/1.5mL injection subcutaneously once per month 1.68 mL 11 04/06/2024 Active hydrOXYzine pamoate 50 mg or al capsule (2 sources) Antihistamine Start: 03-25-2025 levonorgestrel 0.820227 mg/h r intrauterine system (15 sources) Progestin, Progestin-containing Intrauterine Device Start: 03-25-2025 Start: 10-28-2023 Levonorgestrel (Mirena, 52 MG,) 20 [...] tablet (20 sources) Proton Pump Inhibitor Start: 03-25-2025 take 1 tablet by mouth once daily Start: 09-15-2020 take 1 tablet by antwan [...] Status: Ordered pregabalin 100 mg oral capsule (17 sources) Start: 03-25-2025 take 1 capsule by mouth twice daily Start: 01-08-2024 take 1 capsule by mo [...] Status: Ordered propranolol 120 mg oral tablet (11 sources) beta-Adrenergic Ron Start: 01-25-2021 take 120 [...] by mouth once daily. rimegepant 75 mg disintegrat ing oral tablet (17 sources) Start: 03-25-2025 Start: 07-16-2024 Rimegepant Sul fate (Nurtec) 75 MG tablet dispersible Indications: Migraine without status migrainosus, not intractable, unspecified migraine type (CMS/HCC) DISSOLVE 1 TABLET ON THE TONGUE EVERY OTHER DAY 16 tablet 3 07/16/2024 Active Start: 06-01-2024 take 1 tablet by antwan every other day Rimegepant Sulfate (Nurtec) 75 [...] administration instructions). tiZANidine 4 mg oral tablet (14 sources) Central alpha-2 Adrenergic Agonist Start: take 1 capsule by mouth three times daily as needed tizanidine 4 mg oral capsule 4 mg = 1 cap(s), Oral, TID, PRN Prophylaxis, Refills(s) 0 Start Date: 04/27/19 Status: Ordered Start: 05-06-2018 End: 03-25-2025 take 1 tablet by mouth three times daily topiramate 100 mg oral tablet (9 sources) Start: 04-27-2019 take 1 tablet by [...] daily. traZODone hydrochloride 50 mg oral tablet (15 sources) Serotonin Reuptake Inhibitor Start: 03-25-2025 take 1 tablet by mouth once daily at bedtime Start: 10-28-2023 take 1 tablet by antwan th at bedtime traZODone (Desyrel) 50 MG tablet [...] mouth. amitriptyline hydrochloride 25 mg oral tablet (3 sources) Tricyclic Antidepressant Start: 05-06-2018 End: 03-25-2025 take 1 tablet by mouth once daily at bedtime Amitriptyline 25 mg Tablet Discontinued 25 MG PO Daily at bedtime May 06, 2018 12:00am March 25, 2025 8:38am amLODIPine 2.5 mg oral tablet (3 sources) Dihydropyridine Calcium Channel Ron Start: 05-06-2018 [...] Apply to affected ar ea. Norgestimate-Ethinyl Estradiol (3 sources) Progestin, Estrogen Start: 05-06-20 End: 03-25-20 [...] Comment on above: Take 1 capsule by [facility] three times daily for 14 [...] omeprazole 20 mg delayed release oral capsule (3 sources) Proton Pump Inhibitor Sta rt: 8 End : 5 take 1 capsule by mouth at bedtime Omeprazole 20 mg Capsule,Delayed Release(Dr/Ec) Discontinued 20 MG PO Bedtime May 06, 2018 12:00am March 25, 2025 8:38am phentermine hydrochloride 37.5 mg oral tablet (9 sources) Sympathomimetic Amine Anorectic Sta rt: 5 [...] venlafaxine 75 mg extended release oral capsule (3 sources) Serotonin and Norepinephrine Reuptake Inhibitor Start: [...] on above: Take 1,000 mcg by mo [facility] once daily. Problems Active Problems Problem [...] without status migrainosus] Onset: 4 01-05-2020 Chronic Headache; including migraine (15 sources) Headache; Translations: [Headache] Onset: 4 05-31-2024 Episodic Mood disorders (13 sources) Depressive disorder; Translations: [Depression] Onset: 4 10-28-2023 Chronic Osteoarthritis (11 sources) Osteoarthritis; Translations: [Unspecified osteoarthritis, unspecified site] Onset: 4 02-06-2024 Chronic Other acquired deformities (6 sources) Spondylolysis of cervical spine; Translations: [Spondylolysis, cervical region] Episodic Other aftercare (1 source) Other longterm (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 therapy; Translations: [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 Consent was given by the patient. [facility] Ambulatory Visit Summaryon 0 01-07-2024 Ambulatory Visit [...] Martinez When: Only if needed Where: [address] [place] [address]- Medications What How Much When Instructions Unchanged [...] for choosing us for your care. [facility] General Surgery Office/Clini c Noteon 01-07-2024 [...] KOENIG, MASTER Martinez Only if needed [address] [place] [address]- Additional Instructions: Problem List/Past Medical [...] mRNA-1273 vaccine 09/28/2020 Recorded 2023-10-28: TPV20 Normal [facility] Comment on above: Result Comment: Elec tronically Signed By: ANTONELLA KOENIG, Zack Gardiner\.dea\Date and Time Signed: 01/07/24 16:13 EDT Operative Reporton Operative Report [id number] [facility] Pathology Noteon 12-27-2023 Pathology Note [id number]#[id number] [facility] Varun 12-25-2023 L Specimen: [id number] eceived: 12/25/23-1355 Status: JEFFMario Jackie Num: [id number] Spec Type: Surgical Subm Dr: Zack Berman MD FACS Tissues: A Lipoma (LT BACK) Procedures: HE, Gross/Micro L3 Age/ Patient Sex Location Account Attending Physician Nica Estrada 38/F LABELL [id number] Zack Berman MD FACS SPEC NUM: [id number] RECD: 12/25/23 STATUS: LAITH JUNE NUM: [id number] JAVI: 12/25/[address]: Zack Berman MD FACS ENTERED: 12/25/[address] [facility] [address]: Yuriy Gonzalez SPEC TYPE: Surgical DEPT: [...] no obvious areas of hemorrhage or necrosis. Biometrics Instructor sections are submitted A1. RG Clinical history: Lipoma, path pending CPT Codes 07395 -------- -------- Specimen: [id number] Received: 12/25/23 Status: LAITH Vieirascott Num: [id number] Spec Type: Surgical Subm Dr: Zack Berman MD FACS Tissues: A Lipoma (LT BACK) Procedures: HE, Gross/Micro L3 -------- Patient: Nica Estrada [id number] (Continued) -------- Signed (signature on file) Darren Dias MD 12/26/23 1322 Normal [facility] Consent for Procedure/Surger yon 11-12-2023 Consent for Procedure/Surgery [id number] Normal [facility] Consent for Procedure/Surgery [id number]#1.00TIFF Normal [facility] Ambulatory Visit Summaryon 0 11-11-2023 Ambulatory Visit Summary NICA ESTRADA :1985 Visit Date:11/11/2023 Ambulatory Visit Instructions Your Care Team Attending Physician - aZck BERMAN MD Primary Care Physician - Jose [...] for choosing us for your care. Normal [facility] Physician Referralon 024 Physician Referral [id number] Normal [facility] PREG HCG QUALon 04-20-2022 , QUAL Negative Normal NEGATIVE [facility] Comment on above: Performed By: #### P REG #### [facility] [address] [place] [address] Dr. Refugio Apple CNOVon 04-12-2022 CNOV Office Visit (PLASMN ) ESTRADA,NICA A ([id number]) 1985 F Date Time Provider Department 04/12/22 [...] included)... Normal [facility] PREG HCG QUALon 04-06-2022 , QUAL Negative Normal NEGATIVE [facility] Comment on above: Performed By: #### P REG #### [facility] [address] [place] [address] Dr. Refugio Apple CHEMISTRYOrdered By: SYSTEM SYSTEM [...] CNOVon 11-10-2021 CNOV Office Visit (GENSS ) KEMAR ESTRADADERRICK Cole ([id number]) 1985 F Date Time Provider Department 11/10/21 [...] mcg, Iron 45-60 mg and calcium citrate 3821-1114 mg/day PHYSICAL EXAMINATION: Weight loss: BMI 23.2 [...] Ena Mcginnis MD Referring Provider: ENA MCGINNIS [[id number]] Allergies As of Date: 11/10/2021 Noted Allergy [...] included)... Normal [facility] MRI [facility] CONon 11-10- 22 MRI [facility] CON EXAMINATION: MRI [facility] CON HISTORY: Cervical spondylosis without myelopathy COMPARISON: [...] by: MANOHAR ALONZO Date: 2021-11-10 14:28 Normal [facility] CNOVon 06-15-2021 CNOV Office Visit (ITC491 ) NICA ESTRADA ([id number]) 1985 F Date Time Provider Department 06/15/21 11:30 AM ENA MCGINNIS [id number] During your visit today, we recorded the [...] call directly to schedule upper endoscopy at [phone]. Please leave a message if you receive the voicemail with your name, birthday, and reason for calling. Please expect a call or [email or web address] message with appointment information and instructions. What [...] is especially important if you have had rdezv-vtpdvmbpz-vdbza surgery in the past. How is an [...] included)... Normal [facility] HISTORY PHYSICALon HISTORY PHYSICAL HNO ID: [id number] Author: Kalpana Otero MD Service: General Surgery [...] December 16, 2020 TIME: 9:33 AM Normal [facility] NURSING PROGon 12-16-2020 NURSING PROG HNO ID: [id number] Author: Yashira Chapa) DEEPTHI Nova Service: Nursing [...] None Electronically Signed By: Yashira Nova RN [facility] PT EDon 12-16-2020 PT ED HNO ID: [id number] Author: Manohar (Rn) DEEPTHI Conn Service: Nursing [...] None Electronically Signed By: Manohar Conn RN [facility] NURSING PROGon 10-25-2020 NURSING PROG HNO ID: [id number] Author: Diego Abad RN Service: ? Author Type: Registered Nurse Type: Nursing Progress Note Filed: 10/25/2020 2:09 AM Note Text: Nursing Progress Note Patient Name: Nica Estrada [facility]3C25/FV-[id number]-77 Daily Note: 2000: Assessment complete see NPR. Pt present w/ nausea Zofran given. Pain 8/10 PRN pain med given. 0100: Nausea concerned by pt. Paged for second like prevention. 0130: Compazine ordered/given. No cough or SOB at this time. Lap sites intact no bruising. No gas passed yet. This note was completed by: Diego Abad [facility] PLAN OF CAREon 10-25-2020 PLAN OF CARE HNO ID: [id number] Author: Davina Bonilla (MovableInk) Service: Pharmacy Author Type: ? Type: Plan of Care Filed: 10/25/2020 2:56 PM Note Text: Pharmacy Discharge Medication Service: This patient has elected to receive their discharge prescriptions through the [facility] Bedside Prescription Delivery program. The prescriptions are currently being processed. A follow-up note will be entered once the prescriptions have been filled and delivered to the patient. Please contact me with any questions or updates to the patient's discharge medications. Davina Bonilla ([employer]) DCT Contact Info: [phone] [facility] PLAN CARE HNO ID: [id number] Author: Davina Bonilla (Mov[employer]) Service: Pharmacy Author Type: ? Type: Plan of Care Filed: 10/25/2020 2:56 PM Note Text: [facility] [employer] BEDSIDE DELIVERY SURVEY 1. Patient to use [facility] Bedside Delivery - YES Insurance Information as follows: 2. Insurance card on file - YES 3. Credit card for payment - N/A [facility] PLAN CARE HNO ID: [id number] Author: Davina Bonilla ([employer]) Service: Pharmacy Author Type: ? Type: Plan [...] or your Primary Care Provider. Davina Bonilla (Hearing Aid Technician) PAGER: [phone] October 25, 2020 2:56 PM [facility] PROGRESSon 10-25-2020 PROGRESS HNO ID: [id number] Author: Presley Torrez Service: General Surgery Author [...] DATE: October 25, 2020 TIME: 7:02 AM [facility] PROGRESS HNO ID: [id number] Author: Juliet Lilly Service: General Surgery Author [...] care Juliet Lilly MD General Surgery PGY1 [facility] PT EDon 10-25-2020 PT ED HNO ID: [id number] Author: Geoff Sheets) Krunal Service: Nutrition Therapy Author Type: Office Chair Assembler Type: Patient Education Filed: 10/25/2020 12:04 PM [...] October 25, 2020 TIME: 12:04 PM PAGER: [phone] [facility] ANES POSTPROC EVALon 021 ANES POSTPROC EVAL HNO ID: [id number] Author: Brandon Stoddard Service: Anesthesiology Author Type: [...] October 24, 2020 TIME: 4:58 PM CSN: [id number] [facility] ANES PRE-OPon 10-24-2020 ANES PRE-OP HNO ID: [id number] Author: Colin Archer Service: Anesthesiology Author Type: [...] October 24, 2020 TIME: 1:18 PM CSN: [id number] [facility] NURSING PROGon 10-24-2020 NURSING PROG HNO ID: [id number] Author: Sridevi (Rn) DEEPTHI Triana Service: Nursing Author Type: Registered Nurse Type: Nursing Progress Note Filed: 10/24/2020 6:56 PM Note Text: Nursing Progress Note Patient Name: Nica Estrada Patient [facility]: [facility]3C25/OO6O-95 Transfer Note: Patient transferred into room/unit PK325 in stable condition. Actions taken: No futher actions taken at this time. at bedside. Will continue to monitor and check with patient. This note was completed by: Sridevi Triana RN [facility] NURSING PROG HNO ID: [id number] Author: Gege (Rn) DEEPTHI Kenney Service: Nursing [...] None Electronically Signed By: Gege Kenney RN [facility] OPERATIVE NOon 10-24-2020 OPERATIVE NO HNO ID: [id number] Author: Ena Mcginnis Service: General Surgery Author Type: Physician Type: Operative Report Filed: 10/26/2020 11:07 AM Note Text: [facility] - Operative Report NICA ESTRADA : 1985 AGE: 35. SEX: F PATIENT TYPE: I HOSP SVC: GENS LOCATION: [facility] ATTENDING PHYSICIAN: Ena Mcginnis MD CSN NUMBER: [id number] DATE OF SURGERY/PROCEDURE: 10/24/2020 INCISION/PROCEDURE START TIME: 2:28 PM INCISION CLOSE/PROCEDURE END TIME: 4:31 PM PREOPERATIVE DIAGNOSIS: Morbid obesity, BMI of 42. POSTOPERATIVE DIAGNOSIS: 1. Morbid obesity. 2. Hiatal hernia. SURGEON: Ena Mcginnis MD RESTAURANT LINE COOK: Presley Torrez MD. SURGERY/PROCEDURE: 1. Laparoscopic repair [...] The posterior cruroplasty was completed using 1 fbxjhe-ce-vojsj stitch using silk to tighten the sharri. [...] assisted in the absence of qualified surgical services manager help. He created the pouch and created the jejunojejunostomy. Ena Mcginnis MD TA:[id number] Normal [facility] Confirm Blood Typeon 021 ABO/RH(D) Positive Normal [facility] Comment on above: Performed By: #### C ONABO ####[facility] [place], [place] [phone] HISTORY PHYSICALon HISTORY PHYSICAL HNO ID: [id number] Author: Amanda Shane (Pa) Service: ? Author Type: Physician Desktop Administrator Type: HANDP Filed: 10/17/2020 2:58 PM Note [...] fevers. Neuro: No history of TIA's, stroke, SENIOR OCCUPATIONAL THERAPIST tumor, impaired sensorium, hemiplegia, paraplegia or quadraplegia. No neurological symptoms or problems. Respiratory: asthma, uses rescue about once every few weeks; no current resp sx. Had acute bronchitis last Fall, flared asthma for a while but is better now. Has environmental allergies Cardiovascular: No history of HTN requiring medication, no history of angina, CHF, UT, cardiac surgery or stents. Denies rest pain, gangrene or revascularization/amputation for PVD. No history of cardiovascular symptoms or problems. GI: Positive for GERD, no other GI sx. : No history of dysuria, frequency or incontinence,, stones or chronic kidney disease MEAT STRINGER: Negative for abnormal vaginal bleeding, abnormal vaginal [...] 2020 TIME: 2:42 PM PAGER/CONTACT #: Normal [facility] Type and SCR (30D)on 021 ABO/RH(D) Positive Normal [facility] Comment on above: Performed By: #### T [id number] ####[facility] [place], [place] [phone] HOSPon 09-27-2020 HOSP Patient:Nica Estrada MRN: Height:5' [...] 44.1 % 10/17/2020 46.0 36.0 Progress Notes ([facility]): Marcella Saldana RN 10/13/2020 2:32 PM Signed [...] Strength Tylenol. 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 I have also discussed medical [...] on recommendations of the Governor of the [facility]. Although we will perform appropriate precautions [...] patient. Ena Mcginnis MD Previous Version Normal [facility] HEPATITIS B SURFACE AB IMMUN ITY, QNon 08-11-2020 HEPATITIS B SURFACE AB IMMUNITY, QN >1000 Normal > OR = 10 [facility] Comment on above: Result Comment: Patient has immunity to hepatitis B virus. For additional information, please refer to http://education.[employer] INVESTMENTS/faq/WGC375 (This link is being provided for informational/ educational purposes only). Performed By: #### 8 475 #### [facility]-[address], [address] [place] [id number] Commercial Credit Reviewer: Sixto Chandler MD Vital Signs Date Time Vital Sign Value Performing Clinician Facility 03-25-2025 08:53-0400 Body height 157.48 cm Candis Bernadine DO Work Phone: [facility] 03-25-2025 08:53-0400 Body mass index (BMI) [Ratio] 31.8 kg/m2 Candis Bernadine DO Work Phone: [facility] 03-25-2025 08:53-0400 Body weight 78.92 kg Candis Bernadine DO Work Phone: [facility] 03-25-2025 08:53-0400 Diastolic blood pressure 80 mm[Hg] Candis Bernadine DO Work Phone: [facility] 03-25-2025 08:53-0400 Heart rate 80 /min Candis Bernadine DO Work Phone: [facility] 03-25-2025 08:53-0400 Respiratory rate 18 /min Candis Bernadine DO Work Phone: [facility] 03-25-2025 08:53-0400 SaO2% (BldA) [Mass fraction] 98 % Candis Hearnker DO Work Phone: [facility] 03-25-2025 08:53-0400 Systolic blood pressure 140 mm[Hg] Candis Hearnker DO Work Phone: [facility] 01-21-2025 08:26-0400 Body height 154.9 cm Arminda Helton PA Work Phone: [facility] 01-21-2025 08:26-0400 Body mass index (BMI) [Ratio] 32.69 kg/m2 Arminda Helton PA Work Phone: [facility] 01-21-2025 08:26-0400 Body weight 78.47 kg Arminda Helton PA Work Phone: [facility] 01-21-2025 08:26-0400 Diastolic blood pressure 82 mm[Hg] Arminda Helton PA Work Phone: [facility] 01-21-2025 08:26-0400 Heart rate 75 /min Arminda Helton PA Work Phone: [facility] 01-21-2025 08:26-0400 Respiratory rate 16 /min Arminda Helton PA Work Phone: [facility] 01-21-2025 08:26-0400 SaO2% (BldA) [Mass fraction] 97 % Arminda Helton PA Work Phone: [facility] 01-21-2025 08:26-0400 Systolic blood pressure 122 mm[Hg] Arminda Helton PA Work Phone: [facility] 01-04-2025 14:48-0400 Body height 157.5 cm Arminda Helton PA Work Phone: [facility] 01-04-2025 14:48-0400 Body mass index (BMI) [Ratio] 30.36 kg/m2 Arminda Helton PA Work Phone: [facility] 01-04-2025 14:48-0400 Body weight 75.3 kg Arminda Helton PA Work Phone: [facility] 01-04-2025 14:48-0400 Diastolic blood pressure 88 mm[Hg] Arminda Helton PA Work Phone: [facility] 01-04-2025 14:48-0400 Heart rate 84 /min Arminda Helton PA Work Phone: [facility] 01-04-2025 14:48-0400 Respiratory rate 16 /min Arminda Helton PA Work Phone: [facility] 01-04-2025 14:48-0400 SaO2% (BldA) [Mass fraction] 99 % Arminda Helton PA Work Phone: [facility] 01-04-2025 14:48-0400 Systolic blood pressure 140 mm[Hg] Arminda Helton PA Work Phone: [facility] 09-21-2024 10:03-0500 Body mass index (BMI) [Ratio] 30.8 kg/m2 Godwin Keyes LAN ANALYST Work Phone: [facility] 09-21-2024 10:03-0500 Body weight 73.94 kg Godwin Keyes LAN ANALYST Work Phone: [facility] 09-21-2024 10:03-0500 Diastolic blood pressure 93 mm[Hg] Godwin Keyes LAN ANALYST Work Phone: [facility] 09-21-2024 10:03-0500 Heart rate 86 /min Godwin Keyes LAN ANALYST Work Phone: [facility] 09-21-2024 10:03-0500 Systolic blood pressure 142 mm[Hg] Godwin Keyes LAN ANALYST Work Phone: [facility] 06-01-2024 09:53-0400 Body height 154.9 cm Godwin Keyes LAN ANALYST Work Phone: [facility] 06-01-2024 09:53-0400 Body mass index (BMI) [Ratio] 29.48 kg/m2 Godwin Keyes LAN ANALYST Work Phone: [facility] 06-01-2024 09:53-0400 Body weight 70.76 kg Godwin Keyes LAN ANALYST Work Phone: [facility] 06-01-2024 09:53-0400 Diastolic blood pressure 108 mm[Hg] Godwin Keyes LAN ANALYST Work Phone: [facility] 06-01-2024 09:53-0400 Heart rate 80 /min Godwin Keyes LAN ANALYST Work Phone: [facility] 06-01-2024 09:53-0400 Systolic blood pressure 146 mm[Hg] Godwin Keyes LAN ANALYST Work Phone: [facility] 10-16-2022 12:53-0500 Diastolic blood pressure 80 mm[Hg] [facility] 10-16-2022 12:53-0500 Heart rate 55 /min [facility] 10-16-2022 12:53-0500 Mean blood pressure 89 mm[Hg] [facility] 10-16-2022 12:53-0500 Respiratory rate 18 /min [facility] 10-16-2022 12:53-0500 Systolic blood pressure 108 mm[Hg] [facility] 08-28-2022 08:52-0500 Heart rate 70 /min [facility] 08-28-2022 08:52-0500 SaO2% (BldA) [Mass fraction] 100 % [facility] 08-28-2022 08:52-0500 Respiratory rate 16 /min [facility] 08-28-2022 08:52-0500 Diastolic blood pressure 80 mm[Hg] [facility] 08-28-2022 08:52-0500 Mean blood pressure 93 mm[Hg] [facility] 08-28-2022 08:52-0500 Systolic blood pressure 121 mm[Hg] [facility] 08-28-2022 08:46-0500 Heart rate 70 /min [facility] 08-28-2022 08:46-0500 SaO2% (BldA) [Mass fraction] 100 % [facility] 08-28-2022 08:46-0500 Body temperature 97.52 [degF] [facility] 08-28-2022 08:46-0500 Diastolic blood pressure 69 mm[Hg] [facility] 08-28-2022 08:46-0500 Mean blood pressure 80 mm[Hg] [facility] 08-28-2022 08:46-0500 Systolic blood pressure 104 mm[Hg] [facility] 08-28-2022 08:46-0500 Respiratory rate 16 /min [facility] 08-28-2022 08:41-0500 Diastolic blood pressure 64 mm[Hg] [facility] 08-28-2022 08:41-0500 Systolic blood pressure 102 mm[Hg] [facility] 08-28-2022 08:40-0500 Heart rate 71 /min [facility] 08-28-2022 08:40-0500 Respiratory rate 12 /min [facility] 08-28-2022 08:40-0500 SaO2% (BldA) [Mass fraction] 100 % Ot[facility] 08-28-2022 08:35-0500 Respiratory rate 12 /min [facility] 08-28-2022 08:30-0500 Respiratory rate 12 /min [facility] 08-28-2022 07:17-0500 Mean blood pressure 78 mm[Hg] [facility] 08-28-2022 07:17-0500 Respiratory rate 16 /min [facility] 08-28-2022 07:17-0500 Body temperature 98.24 [degF] [facility] 04-12-2022 14:47-0400 Body height 152.4 cm Lazara Woods MD Work Phone: [facility] 04-12-2022 14:47-0400 Body temperature 98.91 [degF] Lazara Woods MD Work Phone: [facility] 04-12-2022 14:47-0400 Body weight 55.52 kg Lazara Woods MD Work Phone: [facility] 04-12-2022 14:47-0400 Diastolic blood pressure 92 mm[Hg] Lazara Woods MD Work Phone: [facility] 04-12-2022 14:47-0400 Heart rate 65 /min Lazara Woods MD Work Phone: [facility] 04-12-2022 14:47-0400 Systolic blood pressure 140 mm[Hg] Lazara Woods MD Work Phone: [facility] 03-01-2022 14:59-0400 Diastolic blood pressure 86 mm[Hg] Oral DIETZ [facility] 03-01-2022 14:59-0400 Heart rate 52 /min Oral REINOSOAM [facility] 03-01-2022 14:59-0400 Systolic blood pressure 130 mm[Hg] Oral DIETZ [facility] Encounters Encounter Date Encounter Type Care Provider Facility Start: 06-23-2025 End: 06-23-2025 ambulatory Candis Colindres DO Work Phone: [facility] Work Phone: Start: 06-23-2025 End: 06-23-2025 Patient encounter procedure Argentina [facility]land [facility] Work Phone: Start: 06-21-2025 End: 06-21-2025 ambulatory Aaliyah Hampton MD Facility: [place] Start: 03-25-2025 End: 03-25-2025 ambulatory Candis Colindres DO Work Phone: [facility] Work Phone: Start: 03-25-2025 End: 03-25-2025 Patient encounter procedure Christianne Romero APRN [facility] [place] Work Phone: Start: 03-22-2025 End: 03-22-2025 ambulatory Aaliyah Hampton MD Facility: [place] Start: 03-15-2025 End: 03-15-2025 ambulatory Aaliyah Hampton MD Facility:[facility] [place] Start: 02-01-2025 End: 02-01-2025 ambulatory Aaliyah Hampton MD Facility: [place] Start: 01-21-2025 End: 01-21-2025 Jared [place] PA Work Phone: [facility] [place] Start: 01-21-2025 End: 01-21-2025 Bamboo flowsheet Arminda PRICE Work Phone: [facility] [place] Start: 01-21-2025 End: 01-21-2025 Clinical Support Arminda PRICE Work Phone: [facility] [place] Comment on above: Myalgia (Primary Dx) ; Neck pain; Cervical spondylosis; Trigger point of neck Start: 01-04-2025 End: 01-04-2025 ambulatory ARMINDA HELTON Not Available Start: 01-04-2025 End: 01-04-2025 Office outpatient visit 25 minutes Arminda PRICE Work Phone: [facility] Comment on above: Migraine without sta tus migrainosus, not intractable, unspecified migraine type (CMS/HCC) (Primary Dx); Myalgia; Cervical spondylosis; Fibromyalgia; Degeneration of intervertebral disc of lumbar region, unspecified whether pain present; Trigger point of neck; Neck pain Start: 01-04-2025 End: 01-04-2025 Bamboo flowsheet Arminda PRICE Work Phone: [facility] [place] Start: 01-04-2025 End: 01-04-2025 Bamboo flowsheet Arminda PRICE Work Phone: [facility] [place] Start: 10-19-2024 End: 10-19-2024 ambulatory Aaliyah Hampton MD Facility:[facility] [place] Start: 09-28-2024 End: 09-28-2024 ambulatory Aaliyah Hampton MD Facility:[facility] [place] Start: 09-21-2024 End: 09-21-2024 Bamboo flowsheet Godwin Keyes LAN ANALYST Work Phone: [facility] [place] [facility] Start: 09-21-2024 End: 09-21-2024 Bamboo flowsraj Keyes LAN ANALYST Work Phone: [facility] [place] [facility] Start: 09-21-2024 End: 09-21-2024 Office outpatient visit 15 minutes Godwin Keyes LAN ANALYST Work Phone: [facility] Comment on above: Migraine without sta tus migrainosus, not intractable, unspecified migraine type (CMS/HCC) (Primary Dx); Myalgia; Cervical spondylosis; Fibromyalgia; Degeneration of intervertebral disc of lumbar region, unspecified whether pain present Start: 09-21-2024 End: 09-21-2024 ambulatory GODWIN KEYES Not Available Start: 06-29-2024 End: 06-29-2024 ambulatory Aaliyah Hampton MD Facility: [place] Start: 06-01-2024 End: 06-01-2024 Bamboo flowsheet Godwin Keyes LAN ANALYST Work Phone: [facility] Start: 06-01-2024 End: 06-01-2024 Bamboo flowsheet Godwin Keyes LAN ANALYST Work Phone: [facility] Start: 06-01-2024 End: 06-01-2024 ambulatory GODWIN KEYES Not Available Start: 06-01-2024 End: 06-01-2024 Office outpatient visit 15 minutes Godwin Keyes LAN ANALYST Work Phone: [facility] Comment on above: Migraine without sta tus migrainosus, not intractable, unspecified migraine type (CMS/HCC) (Primary Dx); Chronic tension-type headache, not intractable; Cervicogenic headache; Occipital neuralgia of right side; Myalgia; Cervical spondylosis; Fibromyalgia; DDD (degenerative disc disease), lumbar Start: 04-06-2024 End: 04-06-2024 ambulatory GODWIN KEYES Not Available Start: 02-17-2024 End: 02-17-2024 ambulatory AUDREY Leo MIRIAN Not Available Start: 01-07-2024 End: 01-08-2024 ambulatory Zack BERAMN Facility: [place] Start: 01-07-2024 End: 01-07-2024 [facility] Start: 01-03-2024 ambulatory Zack BERMAN Facility:[facility] Start: 12-25-2023 End: 12-25-2023 ambulatory Zack Berman Facility:[facility] Start: 12-25-2023 End: 12-26-2023 ambulatory Zack R BHARATHIL [facility] Work Phone: Start: 12-25-2023 End: 12-25-2023 Departed Referred MD Zack Berman Work Phone: [facility] [place] [facility] Start: 11-11-2023 End: 11-12-2023 ambulatory Zack BERMAN Facility:[facility] Start: 11-11-2023 End: 11-26-2023 Pre-admission assessment Zack Zuleyka [facility] Start: 10-21-2023 ambulatory Zack BERMAN Facility:[facility] Start: 10-16-2022 End: 10-16-2022 Pain Management [facility] Start: 08-28-2022 End: 08-28-2022 Pain Management [facility] Start: 05-04-2022 End: 05-05-[address] [...] DR SHALOM WAGNER Facility:[facility] Start: 04-06-2022 End: 07-22-2022 ambulatory ANGELA FUNG Facility:[facility] Start: 03-23-2022 End: 03-24-2022 ambulatory ANGELA KENTON Facility:[facility] Start: 03-01-2022 End: 03-01-2022 Patient encounter procedure Oral DIETZ [facility] Start: 11-10-2021 End: 11-11-2021 ambulatory PETEY HORTENCIA Facility:[facility] Start: 05-24-2021 End: 06-28-[address] [facility] [place] Procedures Date Procedure Procedure Detail Performing Clinician Start: 01-21-2025 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/licensing 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 trigger point 3/> muscles Arminda PRICE Work Phone: Start: 12-25-2023 Excision of lipoma of back Zack BERMAN Start: 08-28-2022 Radiofrequency ablation of medial branch of lumbar nerve using fluoroscopic guidance [facility] Comment on above: L4/5 +L5/S1 40-50% relief Start: 10-17-2020 Antibody screen Comment on above: Performed By: #### [id number] ####[facility] [id number] [place], [place] [id number] Start: 05-09-2020 Adult depression screening assessment Lazara [...] GONZALEZ [address] [place] [address] Arminda Helton PA [address] [place] [address] [facility] Start: 03-25-2025 Patient referral [facility] Work Phone: Start: 03-25-2025 End: 03-25-2025 Patient encounter procedure 03/25/2025 9:00 AM EDT Office Visit [facility] GON[facility] [address] [place] [phone] Christianne Jiang NP [address] [place], [place] [facility] Start: 01-21-2025 End: 01-21-2025 Clinical Support 01/21/2025 8:20 AM EDT Clinical Support [facility] GONZALE[facility] [address] [place] [address] Arminda Helton PA [address] [place] [address] [facility] Start: 01-04-2025 End: 01-04-2025 Patient encounter procedure 01/04/2025 2:40 PM EDT Office Visit [facility] [address] [place] [address] Lazara Wagner NP [address] [place] [id number] [facility] [place] [facility] Start: 01-04-2025 End: 01-04-2026 Inject Trigger Point, 1 or 2 Inject Trigger Point, 1 or 2 Procedures Routine Myalgia Trigger point of neck Neck pain Expected: 01/04/2025 (Approximate), Expires: 01/04/2026 [facility] Work Phone: Comment on above: Expected: 01/04/2025 (Approximate), Expires: 01/04/2026 Start: 09-21-2024 End: 09-21-2024 Patient encounter procedure [facility] [place] [address] [facility] Comment on above: Arrived Start: 05-17-2024 Influenza vaccination Influenza Vacc ine (#1) [facility] Start: 2023 Screening for malign ant neoplasm of breast Mammogram [facility] Start: 05-17-2022 Influenza vaccination INFLUENZA (#1) [facility] Start: 05-09-2021 Adult depression screening assessment DEPRESSION SCREENING [facility] Start: 04-10-2021 COVID-19 VACCINE (3 - Booster for Moderna series) COVID-19 VACCINE (3 - Booster for Moderna series) [facility] Start: 2013 HPV TESTING HPV TESTING [facility] Start: 2013 Screening for malign ant neoplasm of cervix [facility] Start: 02-22-2004 PAP TESTING PAP TESTING [facility] Start: 02-22-2004 Screening for malign ant neoplasm of cervix Pap Smear [facility] Start: 2002 Urine microalbumin profile DTAP,TDAP,TD (1 - Tdap) [facility] Start: 2001 ANNUAL PCP TEAM BUSINESS INTELLIGENCE ETL DEVELOPER 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 VISIT ANNUAL PCP TEAM CHRONIC DISEASE VISIT [facility] Start: 2001 BP CONTROLLED (<130/80) BP CONTROLLE D (<130/80) [facility] Start: 2001 HEPATITIS C SCREENING HEPATITIS C SC REENING [facility] Start: 2001 HIV SCREENING HIV SCREENING [facility] Start: 2001 SPIROMETRY SPIROMETRY [facility] Start: 1989 PNEUMOCOCCAL (1 - PCV) PNEUMOCOCCAL (1 - PCV) [facility] Immunization Date Immunization Notes Care Provider Fa chavez 07-14-2024 influenza virus vaccine, unspecified formulation Godwin Keyes NP Work Phone: [facility] 11-11-2020 SARS-CoV-2 (COVID-19 ) mRNA-1273 vaccine Zack BERMAN [facility] [place] Comment on above: Result Comment: 2023: TPV20 09-28-2020 COVID-19 vaccine, full dose (MODERNA) Lazara Woods MD Work Phone: [facility] Comment on above: Result Comment: 2023: TPV20 07-01-2020 influenza, injectable, quadrivalent, preservative free Lazara Woods MD Work Phone: [facility] 07-01-2020 influenza virus vaccine, unspecified formulation Godwin Keyes LAN ANALYST Work Phone: [facility] 06-17-2020 influenza virus vaccine, unspecified formulation Lazara Woods MD Work Phone: [facility] NEGATED: Highlighted row has not occurred!11-11-2023 influenza virus vaccine, unspecified formulation Zack BERMAN [facility] [place] Payers Date Payer Category Payer Self-pay [id number] 2022 Medicaid [id number] 2022 Private Health Insurance [id number] 2022 Unknown [id number] [id number]. [id number] 2022 Unknown [id number] 2018 Medicaid UHC MEDICAID UHC COMMUNITY PLAN MEDICAID [id number] 2018-Present [phone] [address] [place] [address] Medicaid [id number]. [id number] 1983 Unknown [id number] 2.16.840.1.909338.3.579.2. 593 1983 Unknown [id number] 2.16.840.1.259167.3.579.2. 593 1983 Unknown [id number] 2.840.1.067462.3.579.2. 593 1983 Unknown [id number] 2.840.1.804717.3.579.2. 593 1983 Unknown [id number] 2.840.1.306427.3.579.2. 593 1983 Unknown [id number] 2.0.1.272148.3.579.2. 59 1983 Unknown [id number] 2..1.830189.3.579.2. 59 1983 Unknown [id number] 2..1.332563.3.579.2. 72 1983 Unknown [id number] .1.596288.3.579.2. 727 1983 Unknown [id number] 2.1.100518.3.579.2. 72 1983 Unknown [id number] .1.445451.3.579.2. 1258 1983 Unknown [id number] .1.449717.3.579.2. 9 1983 Unknown [id number] .1.390190.3.579.2. 1258 1983 Unknown [id number] .1.363248.3.579.2. 125 1983 Unknown [id number] .1.526927.3.579.2. 1258 1983 Unknown [id number] .0.1.896412.3.579.2. 1258 1983 Unknown [id number] 2840.1.121404.3.579.2. 196 1983 Unknown [id number] 840.1.548432.3.579.2. 196 1983 Unknown [id number] 2.16.840.1.222288.3.579.2. 196 1983 Unknown [id number] 2.16.840.1.003314.3.579.2. 196 1983 Unknown [id number] 2.16.840.1.420606.3.579.2. 196 1983 Unknown [id number] 2.16.840.1.347794.3.579.2. 196 1983 Unknown [id number] 2.16.840.1.085667.3.579.2. 196 1959 Unknown [id number] Unknown [id number] 2.16.840.1.941743.3.579.2. 531 Social History Date Type Detail Facility Start: 03-01-2022 End: 03-25-2025 Tobacco smoking status Never smoked tobacco (finding) [facility] Tobacco smoking status Never [facility] Start: 05-31-2024 End: 01-21-2025 Sex Assigned At Female [facility] Start: 06-27-2017 End: 02-06-2024 Tobacco use and exposure Smokeless tobacco non-user [facility] Start: 04-12-2022 End: 01-21-2025 Alcohol intake Current drinker of alcohol (finding) [facility] Start: 04-12-2022 End: 01-21-2025 Alcohol intake [facility] Start: 01-05-2020 History SDOH Alcohol Frequency 3 [facility] Start: 01-05-2020 History SDOH Alcohol Std Drinks 1 [facility] Start: 10-17-2020 History SDOH Alcohol Comment once a month, 1 drink [facility] Start: 1985 Sex Assigned At Not on file C [facility] Start: 04-01-2022 End: 04-11-2022 Exposure to SARS-CoV-2 (event) Not sure [facility] Start: 1985 Sex Assigned At Female F [facility] Start: 02-06-2024 Tobacco smoking stat us NHIS Smokes tobacco daily [facility] History [...] on occasion [facility] Sex Female (finding) [facility] Functional Status Date Assessment Result Facility 10-16-2022 Functional Status N/A [facility] 08-28-2022 Functional Status N/A [facility] Clinical Notes 05-04-2020 to 03-25-2025 Note Date & Type Note Facility 03-25-2025 Evaluation note Diagnosis Onset Date Resolution Cervical spondylolysis acute 2024 8:49am Cervicogenic headache acute Mar 8:49am Neck pain acute March 25 8:49am Occipital neuralgia of right side acute March 25, 2025 8:49am Migraine noneactive March 25 8:49am Cervical spondylolysis acute Oc 2024 2:42pm Neck pain acute June 23, 025 2:42pm Occipital neuralgia of right side acute June 23 2:42pm [facility] Work Phone: 1(552) 292-916405-08-2025 History of Present illness Narrative* DEE Rosales - 01/21/2025 8:20 AM EDTAssociated Order(s): Trigger Point Injection: right cervical paraspinals, [...] her right side at this time is alittle worse than the left. Pain today is [...] well. 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 LUE Strength deltoid , biceps , triceps , wrist extensors , wrist flexor , supervisor [employer] strength 5/5. RLE Strength illopsoas, quadriceps, tibialis [...] Discogenic changes most significant at L5-S1 where amoderate-sized posterior sub-ligamentous disc herniation is observed with inferior migration. Modictype I inflammatory changes/bone edema inferior end plate of L5 superior endplate of S1. There are m ultiple levels of facet arthropathy. MRI cervical spine without contrast from 11/10/21: Degenerative discogenic changes, most significantat C6-C7 where moderate left foraminal stenosis is [...] evaluation with Rheumatology (though not for several years).This may be causative for her painful paresthesias [...] pain. The patient denies any weakness, falls orred flag symptoms. PLAN: - Continue following with pain management ([place]) Follow up in 2-3 months or sooner if symptoms worsen, fail to improve, or should a new neurologicalconcern arise. Pt has been fully educated on their diagnosis, treatment options, follow up plan, and return instructions documented in this encounterParkland Health [id number] History of Present illness Narrative* Godwin Keyes NP - 09/21/2024 10:00 AM EST Images from the original note were not [...] use a massage pillow on her shoulders, anduses a heating pad. Muscle relaxers are also [...] , wrist extensors , wrist flexor , supervisor [employer] strength 5/5. LUE Strength deltoid , biceps , triceps , wrist extensors , wrist flexor , supervisor [employer] strength 5/5. RLE Strength illopsoas, quadriceps, tibialis [...] knee reflex 2+. Rodriguez's Sign negative. Coordination: Jkjpuz-rb-[id number] testing is normal Rapid alternating movements are normal Gait: Normal Review and summary of old records: LABS on 07/02/23: JUANITA negative, CK, Myoglobin, and magnesium level WNL MRI lumbar spine without contrast from 04/21/22: Discogenic changes most significant at L5-S1 where amoderate-sized posterior sub-ligamentous disc herniation is observed with inferior migration. Modictype I inflammatory changes/bone edema inferior end plate of L5 superior endplate of S1. There are m ultiple levels of facet arthropathy. MRI cervical spine without contrast from 11/10/21: Degenerative discogenic changes, most significantat C6-C7 where moderate left foraminal stenosis is [...] - Continue follow up with pain mangement ([place]) - Medications as above Fibromyalgia History of fibromyalgia, with previous evaluation with Rheumatology (though not for several years).This may be causative for her painful paresthesias [...] pain. The patient denies any weakness, falls orred flag symptoms. PLAN: - Continue following with pain management ([place]) Follow up in 3-4 months or sooner if symptoms worsen, fail to improve, or should a new neurologicalconcern arise. Pt has been fully educated on their diagnosis, treatment options, follow up plan, and return instructions documented in this encounterParkland Health [id number] History of Present illness Narrative* Godwin Keyes NP - 06/01/2024 9:40 AM EDT Images from the original note were not [...] controlled since last seen. She continues following withpain management for neck and back pain, next follow up is in 2 weeks. Denies any weakness or falls.She will use a massage pillow on her [...] , wrist extensors , wrist flexor , supervisor [employer] strength 5/5. LUE Strength deltoid , biceps , triceps , wrist extensors , wrist flexor , supervisor [employer] strength 5/5. RLE Strength illopsoas, quadriceps, tibialis [...] knee reflex 2+. Rodriguez's Sign negative. Coordination: Rryezn-qw-puof testing is normal Rapid alternating movements are normal Gait: Normal Review and summary of old records: LABS on 07/02/23: JUANITA negative, CK, Myoglobin, and magnesium level WNL MRI lumbar spine without contrast from 04/21/22: Discogenic changes most significant at L5-S1 where amoderate-sized posterior sub-ligamentous disc herniation is observed with inferior migration. Modictype I inflammatory changes/bone edema inferior end plate of L5 superior endplate of S1. There are m ultiple levels of facet arthropathy. MRI cervical spine without contrast from 11/10/21: Degenerative discogenic changes, most significantat C6-C7 where moderate left foraminal stenosis is [...] evaluation with Rheumatology (though not for several years).This may be causative for her painful paresthesias [...] pain. The patient denies any weakness, falls orred flag symptoms. PLAN: - Continue following with pain management ([place]) Follow up in 3-4 months or sooner if symptoms worsen, fail to improve, or should a new neurologicalconcern arise. Pt has been fully educated on their diagnosis, treatment options, follow up plan, and return instructions documented in this encounterParkland Health [id number] Hospital Discharge instructions Follow Up Care 12/27/2023 13:04:11 With:ANTONELLA KOENIG, MASTER Martinez Address: [address] [place] [phone]- When: only if needed [facility] [email or web address] 02-26-2024 NoteChief Complaint consultation for skin mass HPI Staff 38 year old female presents on consultation from Dr. Castano for left back mass. Reports noting massapproximately 1 month ago. Denies change in size [...] swallowing difficulties, no hearing loss, no ear infection(s),no nose bleeds. Cardiovascular: normal blood pressure, no [...] Alcoholism: Brother. Colon ca (more content not included)...[facility] HospitalComment [facility] above:Result Comment: Electronically Signed By: ANTONELLA KOENIG, Zack Carson\Date and Time Signed: 11/11/23 13:28 [id number] Evaluation + Plan noteExtracted from: Title:FUV Author:Otis Burch MD Date :10/16/22 [...] concerns. Patient agrees with plan of care. [facility]07-28-2022 NoteHNO ID: [id number] Author: ST Rick Service: ? 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 Author [...] ALLERGIES A (more content not included)...[facility]07-27-2022 History of Present illness Narrative* Lazara Woods [...] Past Histories independently gathered by the clinical child support case officer and the remaining scribed note accurately describes [...] weeks. Lazara Woods MD documented in this encounterUniversity Hospitals Ahu[facility]06-16-2022 Evaluation + Plan note Diagnostic [...] Level 04/25/21 * Vitamin B12 Level 04/25/21 [facility]02-25-2022 NoteHNO ID: [id number] Author: Ena Mcginnis MD Service: ? Author [...] mcg, Iron 45-60 mg and calcium citrate 7915-3516 mg/day PHYSICAL EXAMINATION: Weight loss: BMI 23.2 [...] bypass Plan: ? Doing great ? EGD [facility]androPro[facility] Hospital09-30-2021 NoteHNO ID: [id number] Author: nEa Mcginnis MD Service: ? Author Type: Physician [...] mcg, Iron 45-60 mg and calcium citrate 4924-8300 mg/day ? COMPLETE REVIEW OF SYSTEMS Constitutional--Negative [...] which included preparing to see the patient, egve-vb-[id number] patient care and completing clinical documentation.[facility]08-10-2021 Evaluation + Plan note Future Scheduled Tests Laboratory* Copper Level 04/25/21 * Zinc Level 04/25/21 * Vitamin A Level 04/25/21 * Vitamin B1 04/25/21 * Vitamin B6 Lvl 04/25/21 * Vitamin D 25 Hydroxy 04/25/21 * Ferritin 04/25/21 * Folate Level 04/25/21 * Iron Level 04/25/21 * Magnesium Level 04/25/21 * Vitamin B12 Level 04/25/21 [facility] [id number] History of Past illness Narrative* Problem Noted Date Resolved Date Morbid obesity 05/04/2020 01/23/2021 documented as of this encounter (statuses as of 04/12/2022) [facility] History of Past illness Narrative* Problem Noted Date Resolved Date Morbid obesity 05/04/2020 01/23/2021 documented as of this encounter (statuses as of 04/12/2022) [facility] CenterEvaluation + Plan note Future Appointments Appointment Date:09/24/2022 10:30:00 AM Scheduled Provider:Sridevi Goetz PA-C Location[facility] Appointment Type:Pain Management - Follow [facility] (FT) [facility] Diagnosis Hx of bariatric surgery- Primary Bariatric surgery status Excess skin documented in this encounter [facility] CenterEvaluation noteNo assessment information availableOhiohealth Grove City [facility] Work Phone: Evaluation note* Diagnosis Migraine [...] lumbosacral intervertebral disc documented in this encounter [facility]* Diagnosis Migraine without [...] 2024 8:49am Migraine noneactive March 25 8:49am [facility] Work Phone: Hospital course Narrative No data available for this section [facility] Hospital Discharge instructions No data available for this section [facility] [employer] Progress note No data available for this section [facility] Reason for referral (narrative)No reason for referral information availableJoint Township District [facility] Work Phone: Summary Purpose Family History No Family History [...] FoundDocuments on File Type Date Recorded Patient Biometrics Instructor Expl anation Advance Directive(s) 12/16/2020 8:43 AM Advance Directive(s) 12/15/2020 1:00 PM Advance Directive(s) 10/24/2020 10:04 AM Advance Directive(s) 10/04/2020 4:19 PM Advance Directive Response Recorded Date/ Time Advance Directives No April 30, 2018 4:07pm Hospital Course Note HNO ID: [id number] Author: Douglas Torrez Service: General Surgery Author [...] (more content not included)... Note HNO ID: [id number] Author: Devonte Zurita Service: Anesthesiology Author Type: Nurse Precision Lens Generator Type: Anesthesia Procedure Notes Filed: 10/24/2020 2:25 PM Note Text: ANESTHESIOLOGY PROCEDURE NOTE Airway General Information Procedure Start Time/Medication Administration: 10/24/2020 2:14 PM Patient location during procedure: OR Timeout Performed Pre-procedure: timeout performed Patient identity confirmed: arm band, care steam engineer and patient Staffing Anesthesiologist: Brandon Stoddard RETAIL SALES ADVISOR: Pallavi Zurita Performed by: SHAVON Indications and [...] (more content not included)... Note HNO ID: [id number] Author: Devonte Zurita Service: Anesthesiology Author Type: Nurse Precision Lens Generator Type: Anesthesia Procedure Notes Filed: 10/24/2020 2:26 [...] October 24, 2020 TIME: 2:26 PM CSN: [id number] Note HNO ID: [id number] Author: Douglas Torrez Service: General Surgery Author Type: Physician Type: Brief Op Note Filed: 10/24/2020 4:36 PM Note Text: BRIEF OPERATIVE NOTE [facility] LOG ID: [id number] SURGERY/PROCEDURE DATE: 10/24/2020 INCISION/PROCEDURE START TIME: 2:28 PM INCISION CLOSE/PROCEDURE END TIME: 4:31 PM SURGEON(S) AND RESTAURANT LINE COOK(S): Surgeon(s) and Role: * Ena Mcginnis - Primary * Jarad Clarke (Res) DO Steven - Resident - Assisting * Presley Torrez - Resident - Assisting No Additional Staff PROCEDURES AND ANESTHESIA: Procedure(s) and Anesthesia Type: * LAPAROSCOPIC GASTRIC RESTRICTIVE SURG W/ BYPASS AND TREVOR-EN-Y Procedure Findings Note HNO ID: [id number] Author: Devonte Zurita Service: Anesthesiology Author Type: Nurse Precision Lens Generator Type: Anesthesia Procedure Notes Filed: 10/24/2020 2:25 PM Note Text: ANESTHESIOLOGY PROCEDURE NOTE Airway General Information Procedure Start Time/Medication Administration: 10/24/2020 2:14 PM Patient location during procedure: OR Timeout Performed Pre-procedure: timeout performed Patient identity confirmed: arm band, care steam engineer and patient Staffing Anesthesiologist: Brandon Stoddard RETAIL SALES ADVISOR: Pallavi Zurita Performed by: SHAVON Indications and [...] (more content not included)... Note HNO ID: [id number] Author: Devonte Zurita Service: Anesthesiology Author Type: Nurse Precision Lens Generator Type: Anesthesia Procedure Notes Filed: 10/24/2020 2:26 [...] October 24, 2020 TIME: 2:26 PM CSN: [id number] Note HNO ID: [id number] Author: Douglas Torrez Service: General Surgery Author Type: Physician Type: Brief Op Note Filed: 10/24/2020 4:36 PM Note Text: BRIEF OPERATIVE NOTE [facility] LOG ID: [id number] SURGERY/PROCEDURE DATE: 10/24/2020 INCISION/PROCEDURE START TIME: 2:28 PM INCISION CLOSE/PROCEDURE END TIME: 4:31 PM SURGEON(S) AND RESTAURANT LINE COOK(S): Surgeon(s) and Role: * Ena Mcginnis - Primary * Jarad Clarke (Res) DO Steven - Resident - Assisting * Presley Torrez - Resident - Assisting No Additional Staff PROCEDURES AND ANESTHESIA: Procedure(s) and Anesthesia Type: * LAPAROSCOPIC GASTRIC RESTRICTIVE SURG W/ BYPASS AND TREVOR-EN-Y Chief Complaint and Reason for Visit Chief Complaint Admit Date 3 month follow up March 25, 2025 8:49 am ONB injection-- NPCR; 06/02/25aas June 23, 2025 2:42pm Reason for Visit Admit Date Cervical spondylolysis March 25, 2025 8 :49am Cervicogenic headache March 25, 2025 8: 49am Neck pain March 25, 2025 8:49 am Occipital neuralgia of right side March 162024 8:49am Migraine March 25, 2025 8:49 am Cervical spondylolysis June 23, 2025 2:42pm Neck pain June 23, 2025 2: 42pm Occipital neuralgia of right side Octobe r 2024 2:42pm Chief Complaint Admit Date 3 month follow up March 25, 2025 8:49 am Reason for Visit Admit Date Cervical spondylolysis March 25, 2025 8 :49am Migraine March 25, 2025 8:49 am Additional Source Comments INFORMATION SOURCE (unrecogn ized section and content) DATE CREATED AUTHOR 08/11/2020 [facility] DATE CREATED AUTHOR AUTHOR'S ORGANIZ ATION 10/18/2020 [facility] DATE CREATED AUTHOR AUTHOR'S ORGANIZ ATION 12/17/2020 [facility] DATE CREATED AUTHOR AUTHOR'S ORGANIZ ATION 04/16/2022 [facility] DATE CREATED AUTHOR AUTHOR'S ORGANIZ ATION 05/10/2022 [facility] DATE CREATED AUTHOR AUTHOR'S ORGANIZ ATION 12/26/2023 [facility] DATE CREATED AUTHOR AUTHOR'S ORGANIZ ATION 01/09/2024 [facility] DATE CREATED AUTHOR AUTHOR'S ORGANIZ ATION 01/23/2025 [facility] DATE CREATED AUTHOR AUTHOR'S ORGANIZ ATION 06/26/2025 [facility] Care Team (unrecognized sect ion and content) Assistant Boys Track Coach Relationship Specialty Start Date End Date Jose Castano III, DO [address] [place] [address] PCP - General Family Practice 10/04/20 Assistant Boys Track Coach Relationship Specialty Start Date End Date Jose Castano III, DO [address] [facility] [address] [place] [address] PCP - General Family Practice 10/04/20 Team Status: Inactive Member Role Status Dates Zack Berman MD FACS Attending Provider Active Start: December 25, 2023 End: December 25, 2023 Assistant Boys Track Coach Relationship Specialty Start Date End Date Candis Colindres MD [address] [place] [phone] PCP - General Family Medicine 01/30/24 Assistant Boys Track Coach Relationship Specialty Start Date End Date Candis Colindres MD [address] [place] [phone] PCP - General Family Medicine 01/30/24 Assistant Boys Track Coach Relationship Specialty Start Date End Date Candis Colindres MD [address] [place] [phone] PCP - General Family Medicine 01/30/24 Assistant Boys Track Coach Relationship Specialty Start Date End Date Candis Colindres MD [address] [place] [phone] PCP - General Family Medicine 01/30/24 Assistant Boys Track Coach Relationship Specialty Start Date End Date Candis Colindres MD [address] [place] [phone] PCP - General Family Medicine 01/21/25 Assistant Boys Track Coach Relationship Specialty Start Date End Date Candis Colindres MD [address] [place] [phone] PCP - General Family Medicine 01/21/25 Team Status: Active Member Role Status Dates Candis Colindres DO Primary Care Provider Active Team Status: Inactive Member Role Status Dates Christianne Jiang , OFFICE SERVICES CLERK Attending Provider Active Start: March 25, 2025 End: March 25, 2025 Candis Colindres DO Primary Care Provider Active Start: March 25, 2025 End: March 25, 2025 Team Status: Inactive Member Role Status Dates Candis Colindres DO Primary Care Provider Active Start: June 23, 2025 End: June 23, 2025 Argentina Rowland DO Attending Provider Active Sta rt: June 23, 2025 End: June 23, 2025 Source Comments (unrecognize d section and content) In the event this informatio n is protected by the Federal Confidentiality of Alcohol and Drug Abuse Patient Records regulations: The Federal rules restrict any use of the information to criminally investigate or prosecute any alcohol or drug abuse patient.[facility] CenterIn the event this information is protected by the Federal Confidentiality of Alcohol and Drug Abuse Patient Records regulations: The Federal rules restrict any use of the information to criminally investigate or prosecute any alcohol or drug abuse patient.[facility] Reason for Visit (unrecogniz ed [...] BE BASED ON THE PRIMARY CLINICAL RECORDS. [employer] provides no warranty or guarantee of the accuracy or completeness of information in this document.
--- NOTE | 2025-06-30 10:07 | P.CN_ITS ---
Consult Note: HPI Data of Consult Patient: known to practice within the last 3 years Consult date: 06/30/25 Requesting Physician: Miladys Vivas NP Primary Care Provider: PETEY BURNETT Consult Narrative Reason for consult: low back pain Narrative: Nica Estrada a pleasant 40 year old female with chronic low back pain >12 months secondary to lumbar ddd, lumbar stenosis, and lumbar spondylosis presents for evaluation. pt noting low back pain aching 4-5/10 increasing with standing, walking, pushing, pulling, standing, walking, bending, activity. pain improved with reclining, stretching, heat, and sleep. utilizing tylenol prn, robaxin 500mg TID, zonegran 100mg BID, and duloxetine 90mg TID without side effects. recently underwent updated lumbar MRI with results below, similar from prior. since last visit has had increased pain radiating down left>right leg with worsening cramping, numbness and tingling to BLE. pt underwent bilateral l5-s1 TFESI on 06/21/25 with 50% improvement ongoing cc:: CC: Miladys Vivas NP Review of Systems ROS Musculoskeletal Reports: back pain and joint pain PFSH PFSH Medical History Change in bowel habits ?R19.4 - Change in bowel habit (ICD-10) Prediabetes ?R73.03 - Prediabetes (ICD-10) Obesity ?E66.9 - Obesity, unspecified (ICD-10) Obstructive hydronephrosis Migraines ?G43.909 - Migraine, unspecified, not intractable, without status migrainosus (ICD-10) Lipoma of back ?D17.1 - Benign lipomatous neoplasm of skin and subcutaneous tissue of trunk (ICD-10) Abdominal pain ?R10.9 - Unspecified abdominal pain (ICD-10) Dyssynergia ?R27.8 - Other lack of coordination (ICD-10) Depression ?F32.A - Depression, unspecified (ICD-10) Colon polyps ?K63.5 - Polyp of colon (ICD-10) Chronic constipation ?K59.09 - Other constipation (ICD-10) Asthma ?J45.909 - Unspecified asthma, uncomplicated (ICD-10) Hiatal hernia ?K44.9 - Diaphragmatic hernia without obstruction or gangrene (ICD-10) Fibromyalgia ?M79.7 - Fibromyalgia (ICD-10) Osteoarthritis ?M19.90 - Unspecified osteoarthritis, unspecified site (ICD-10) Low back pain ?M54.50 - Low back pain, unspecified (ICD-10) Anxiety ?F41.9 - Anxiety disorder, unspecified (ICD-10) Hypercholesterolemia ?E78.00 - Pure hypercholesterolemia, unspecified (ICD-10) Hypertension ?I10 - Essential (primary) hypertension (ICD-10) Surgical History H/O gastric bypass ?Z98.84 - Bariatric surgery status (ICD-10) S/P foot surgery, right ?Z98.890 - Other specified postprocedural states (ICD-10) S/P cholecystectomy ?Z90.49 - Acquired absence of other specified parts of digestive tract (ICD- 10) S/P ?Z98.891 - History of uterine scar from previous surgery (ICD-10) Family History Other Family history of myocardial infarction Social History Within the past year, how often did you have a drink containing alcohol: 2-4 times a month Smoking status: Never smoker Non-prescribed substance use: denies use 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 Highest level of school completed/degree received: some college, no degree Meds Home Medications and Allergies Home Medications ?Medication ?Instructions ?Recorded ?Confirmed ?Type alprazolam 0.25 mg tablet (Xanax) 0.25 mg PO DAILY PRN anxiety 03/27/23 06/21/25 History duloxetine 30 mg capsule,delayed 90 mg PO QDAY 3 06/21/25 History release cariprazine 1.5 mg capsule 1.5 mg PO DAILY 08/09/23 History (Vraylar) ondansetron 4 mg disintegrating 4 mg PO DAILY PRN naus ea and 08/09/23 06/21/25 History tablet vomiting rimegepant 75 mg disintegrating 75 mg PO DAILY PRN slick mahi 08/09/23 06/21/25 History tablet (Nurtec ODT) headache trazodone 50 mg tablet 50 mg PO DAILY 08/09/23 10/0 03/10 History tizanidine 4 mg capsule See Rx Instructions .Route 0 09/23/24 06/21/25 Rx .COMPLEX PRN muscle spasticity #180 caps hydroxyzine pamoate 50 mg capsule mg 02/01/25 History methocarbamol 500 mg tablet 1,000 mg PO TID 05/13/25 1 History Allergies Allergy/AdvReac Type Severity Reaction Status Date / Time latex Allergy Severe Rash Verified 03/15/25 10:47 amitriptyline AdvReac Mild Nausea Verified 03/15/25 10:47 NSAIDS (Non-Steroidal AdvReac Unknown Verified 03/15/25 10:47 Anti-Inflamma Exam Constitutional Documenting provider has reviewed patient's vital signs: yes Common normals: no apparent distress, oriented x3, healthy appearing, alert and well nourished General appearance: cooperative HENMT Common normals: normocephalic, hearing grossly normal bilaterally and moist oral mucous membranes Head and scalp: normocephalic Eye Common normals: PERRL Pupil: PERRL Neck & C-Spine Common normals: full ROM General: normal visual inspection Chest Common normals: inspection of chest normal Respiratory Common normals: normal respiratory effort, no retractions and no use of accessory muscles Back & Pelvis Lumbar spine/lower back: ROM limited, pain with ROM and lumbar spinal tenderness Other: sensation intact BLE strength 5/5 in BLE Neuro Common normals: oriented x3 Sensorium/orientation: alert Psych Common normals: mental status grossly normal, thought process normal, cooperative, affect normal, speech normal and activity/motor behavior normal Speech: normal speech Thought process: normal thought process Results Imaging lumbar mri: Attestation: I have reviewed the pertinent imaging results. Radiologist's impression: In keeping with the prior dictation, there is partial lumbarization of S1 with rudimentary disc at S1-S2. Lumbar vertebral heights and alignment maintained. Mild intervertebral space narrowing L3-L5 and moderate intervertebral space narrowing at L5-S1. Conus medullaris terminates normally at L1-L2. Nerve roots of the cauda equina are unremarkable. Paraspinal soft tissues are unremarkable. T12-L3: No significant disc disease, central canal or neural foraminal narrowing identified. L3-4: Minor broad-based bulge with mild facet arthropathy. There is a dorsal subchondral cysts versus synovial cyst involving the left facet joint. No significant canal or neural from narrowing identified. L4-5: Circumferential disc bulge with broad-based central bulge. Mild canal narrowing. Mild right mild to moderate left neural from narrowing. Sirn-zd-opfzidqa facet arthropathy. L5-S1: Circumferential disc bulge with left central/subarticular zone extrusion dorsally displacing the traversing left S1 nerve root. There is moderate facet arthropathy. Pmtu-fz-dtxwpjgn right neural foraminal narrowing and moderate left neural foraminal narrowing identified. Additional Findings Additional findings: If on a controlled substance or opioids, I have checked an [place] report on this patient and there are no aberrancies noted in the prescribing history.??If on a controlled substance or opioid a drug screen was completed and reviewed within the last year, and if there has not been a drug screen completed we ordered one today to monitor higher risk, state monitored pain medication use. As part of providing excellent, safe, comprehensive care, the following was completed at our patient's visit: 1. A medication reconciliation and review to ensure accurate knowledge of current/active medications, including asking our patients to inform us about any yhfz-jjn-zcjwjpq medications or herbal remedies/nutritional supplements/alternative remedies. 2. A review to specifically ensure our patients have had annual screening for screening for depression, screening for tobacco use, and screening for unhealthy alcohol use. For concerning screenings had a discussion with the patient, provided patient education, and recommended follow-up with primary care provider when appropriate. If patient noted with a risk of falling, they received education on strength, gait, and balance training to prevent future risk of falling. Portions of this note may have been carried over from the previous visit and updated as appropriate. Please note this office utilizes paper charting in addition to the electronic medical record. A list of current medications, vitals, and PMH is available there as the clinical staff outside of myself do not have access to [employer] charting during the clinic day operations. As part of providing quality comprehensive care the current medications, vitals, and PMH were reviewed in the paper chart. Assessment and Plan Assessment and Plan (1) Lumbar stenosis with neurogenic claudication: Assessment and Plan: The patient has had over 3 months of moderate to severe low back pain with functional impairment and inadequate response to conservative care including NSAIDS (unless there are contraindication such as concurrent blood thinners), multiple oral or topical pain medications, and home exercise program/physical t herapy.? Patient has completed >6 weeks of guided home exercise program and/or formal physical therapy program without relief of their symptoms.? (2) Lumbar disc displacement without myelopathy: (3) Myalgia: (4) Sacroiliitis: (5) Lumbar spondylosis: Plan continue zonegran 100mg BID continue robaxin 500-1000mg TID PRN pain/spasms continue HEP as tolerated f/u 2 months, sooner if needed
== END 2025-06-30 09:43 | disposition home or self-care (01) ==
LOC: PM 09:42
PROVIDERS: PCP Physician Assistant; Visit Provider Nurse Practitioner
DX: M48.062 Spinal stenosis, lumbar region with neurogenic claudication (principal); M51.26 Other intervertebral disc displacement, lumbar region; M79.10 Myalgia, unspecified site; M46.1 Sacroiliitis, not elsewhere classified; M47.816 Spondylosis without myelopathy or radiculopathy, lumbar region
CPT/HCPCS: G0463

== ENCOUNTER 2025-09-01 09:42 | Outpatient (OUT) | payer OTHER, SELFPAY ==
--- OUTSIDE RECORDS SUMMARY | 2024-11-19 03:15 | XMS_ITS ---
Author Organization [facility] Servic es Address [facility] [address] [place] [address] Care Team Providers Care Senior Examiner Name Role Phone Jennifer York Primary Care Provider REASON FOR VISIT 3 month f/u Encounters Encounter Location Date Provider Diagnosis [facility] [address] [place] [address] 11/19/2024 Jennifer York Plan Of Treatment Next Appt Details Provider Name:Kiara sadler, 10/07/2025 11:00:00 AM, [address] [place], [address], Progress Notes * NORAH ESCAMILLA ADOB:1985 (40 yo F)Acc No.[id number]:11/19/2024 Behavioral Health Patient: NORAH CRUMP :?Jennifer YorkDOB:1985???Age:39 Y???Sex:Female Date:11/19/2024Phone:[phone]:[address] [place], [place]-[address] Subjective: * Chief Complaints: * 3 month f/u * Electronic signature of CYNTHIA Burciaga on 09/01/2025 at 09:44 AM ESTSign off status: Pending * Provider: Mel York Date: 0 11/19/2024 Generated for Printing/Faxing/eTransmitting on:?09/01/2025 09:44 AM EST
--- OUTSIDE RECORDS SUMMARY | 2025-07-29 04:30 | XMS_ITS ---
Author Organization [facility] Address [facility] [address] [address] Care Team Providers Care Associate Web Developer Name Role Phone Jennifer York Primary Care Provider Maria Luisa Restrepo Unavailable [phone] REASON FOR VISIT 2 month f/u Encounters Encounter Location Date Provider Diagnosis [facility] [address] [place] [address] 07/29/2025 Maria Luisa Restrepo Plan Of Treatment Next Appt Details Provider Name:Kiara sadler, 10/07/2025 11:00:00 AM, [address] [place] [address], [phone], Progress Notes * NORAH ESCAMILLA ADOB:1985 (40 yo F)Acc No.[id number]:07/29/2025 Behavioral Health Patient: NORAH CRUMP :?Maria Luisa RestrepoDOB:1985???Age:40 Y???Sex: FemaleDate:07/29/2025Phone:[phone]:2 [facility]Pcp:Jennifer York Subjective: * Chief Complaints: * 2 month f/u Billing Information: * Procedure Codes: * Electronic signature of CYNTHIA Storm on 09/01/2025 at 09:44 AM EST Sign off status: Pending * Provider: Per Restrepo Date: 1 09/28/2024 Generated for Printing/Faxing/eTransmitting on:?09/01/2025 09:44 AM EST
--- OUTSIDE RECORDS SUMMARY | 2025-08-26 09:15 | XMS_ITS ---
Author Organization [facility] Serv[facility] es Address [address] [place] [address] Care Team Providers Care Aircraft Maintenance Director Name Role Phone Jennifer York Primary Care Provider Maria Luisa Restrepo [phone] REASON FOR VISIT Pt is a 40 year old female here today for a 3 month f/u Medications Medication SIG (Take, Route, Frequency, Duration) Notes Start Date End Date Status hydrOXYzine Pamoate 50 MG Capsule 1 capsule Orally every 6 hours As needed 5ActiveAtomoxetine HCl 40 MG Capsule1 capsule Orally twice a day; Duration: 30 days312/5ActiveVraylar 1.5 mg Capsuleone capsule orally dailyActiveDULoxetine HCl 30 MG Capsule Delayed Release Particles1 capsule Orally Once a dayActiveDULoxetine HCl 60 MG Capsule Delayed Release Particles1 capsule Orally Once a dayActivePantoprazole Sodium 20 MG Tablet Delayed Release1 tablet Orally Once a dayNot-Taking/PRNPropranolol HCl ER 120 MG Capsule Extended Release 24 Hour1 capsule Orally as directedNot-Taking/PRN Topiramate 50 MG Tablet1 tablet Orally Twice a day; Duration: 30 days Not-Taking/PRNtraZODone HCl 100 MG Tablet1 tablet at bedtime as needed Orally Once a day; Duration: 30 daysincrease dosage. please disregard the 50mg refills ActiveVerapamil HCl ER 180 MG Tablet Extended Release1 tablet Orally Once a day Not-Taking/PRNBaclofen 10 MG Tablet1 tablet Orally dailyNot-Taking/PRNZonisamide 100 MG CapsuleOral; Duration: 30 DaysActiveLyrica 50 MG Capsule1 capsule Orally three times a day (tid)ActiveVentolin HFA 108 (90 Base) MCG/ACT Aerosol Solution 1 puff as needed Inhalation every 4 hrsActiveOndansetron HCl 4 MG Tablet1 tablet Orally Once a dayActiveNurtec 75 MG Tablet Disintegrating1 tablet on the tongue and allow to dissolve Orally dailyActiveMirenaActive Encounters Encounter Location Date Provider Diagnosis [facility] [place] [address] 08/26/2025 Maria Luisa Restrepo Plan Of Treatment Next Appt Details Provider Name:Kiara Salazar doroteo, 10/07/2025 11:00:00 AM, [address] [facility] [place], [address], Progress Notes * NORAH ESCAMILLA ADOB:1985 (40 yo F)Acc No.[id number]:08/26/2025 Behavioral Health Patient: NORAH CRUMP :?Maria Luisa LauroDOB:1985???Age:40 Y???Sex: FemaleDate:08/26/2025Phone:[phone]:[address] [place] [id number]:Jennifer York Subjective: * Chief Complaints: * P t is a 40 year old female here today for a 3 month f/u * Medications: T akingMirena Nurtec 75 MG Tablet Disintegrating 1 tablet on the tongue and allow to dissolve Orally daily Ondansetron HCl 4 MG Tablet 1 tablet Orally Once a day Ventolin HFA 108 (90 Base) MCG/ACT Aerosol Solution 1 puff as needed Inhalation every 4 hrs Lyrica 50 MG Capsule 1 capsule Orally three times a day (tid) Zonisamide 100 MG Capsule Oral traZODone HCl 100 MG Tablet 1 tablet at bedtime as needed Orally Once a day , Notes to Pharmacist: increase dosage. please disregard the 50mg refillshydrOXYzine Pamoate 50 MG Capsule 1 capsule Orally every 6 hours As neededDULoxetine HCl 60 MG Capsule Delayed Release Particles 1 capsule Orally Once a day DULoxetine HCl 30 MG Capsule Delayed Release Particles 1 capsule Orally Once a day Vraylar 1.5 mg Capsule one capsule orally daily Atomoxetine HCl 40 MG Capsule 1 capsule Orally twice a day , stop date 09/05/2025Taking Mirena Taking Nurtec 75 MG Tablet Disintegrating 1 tablet on the tongue and allow to dissolve Orally daily Taking Ondansetron HCl 4 MG Tablet 1 tablet Orally Once a day Taking Ventolin HFA 108 (90 Base) MCG/ACT Aerosol Solution 1 puff as needed Inhalation every 4 hrs Taking Lyrica 50 MG Capsule 1 capsule Orally three times a day (tid) Taking Zonisamide 100 MG Capsule Oral Taking traZODone HCl 100 MG Tablet 1 tablet at bedtime as needed Orally Once a day , Notes to Pharmacist: increase dosage. please disregard the 50mg refillsTaking hydrOXYzine Pamoate 50 MG Capsule 1 capsule Orally every 6 hours As neededTaking DULoxetine HCl 60 MG Capsule Delayed Release Particles 1 capsule Orally Once a day Taking DULoxetine HCl 30 MG Capsule Delayed Release Particles 1 capsule Orally Once a day Taking Vraylar 1.5 mg Capsule one capsule orally daily Taking Atomoxetine HCl 40 MG Capsule 1 capsule Orally twice a day , stop date 09/05/2025Not-Taking/PRNBaclofen 10 MG Tablet 1 tablet Orally daily Topiramate 50 MG Tablet 1 tablet Orally Twice a day Propranolol HCl ER 120 MG Capsule Extended Release 24 Hour 1 capsule Orally as directed Pantoprazole Sodium 20 MG Tablet Delayed Release 1 tablet Orally Once a day Verapamil HCl ER 180 MG Tablet Extended Release 1 tablet Orally Once a day Not-Taking/PRN Baclofen 10 MG Tablet 1 tablet Orally daily Not-Taking/PRN Topiramate 50 MG Tablet 1 tablet Orally Twice a day Not- Taking/PRN Propranolol HCl ER 120 MG Capsule Extended Release 24 Hour 1 capsule Orally as directed Not-Taking/PRN Pantoprazole Sodium 20 MG Tablet Delayed Release 1 tablet Orally Once a day Not-Taking/PRN Verapamil HCl ER 180 MG Tablet Extended Release 1 tablet Orally Once a day Billing Information: * Procedure Codes: * Electronic signature of BEBA StormHNVince on 09/01/2025 at 09:44 AM EST Sign off status: Pending * Provider: Per Restrepo Date: 1 10/27/2024 Generated for Printing/Faxing/eTransmitting on:?09/01/2025 09:44 AM EST
--- OUTSIDE RECORDS SUMMARY | 2025-09-01 09:44 | XMS_ITS | Clinical Summary ---
Author Organization [facility] Address [address] [place], [place] [address] Care Team Providers Care Improvement Director Name Role Phone Eyad RALPHDO Vernon Zuleyka Primary Care Provider Allergies Active AllergyReactionsCriticalityNoted DateCommentsSumatriptanOther: See EpshqfirBjumzd93/12/2017 nausea LatexOther: See OeioilxbVxevcz43/12/2017 Blisters Medications MedicationSigDispense QuantityRefillsLast FilledStart DateEnd DateStatus pantoprazole DR (PROTONIX) 40 mg tablet Take 40 mg by mouth once daily.Active gabapentin (NEURONTIN) 100 mg capsule Take 1 capsule by mouth three times daily for 14 days. 42 capsule 10/13/2020ctive scopolamine (TRANSDERM-SCOP) patch 1.5 mg/72 hr (1 mg over 3 days) Apply 1 Patch as directed every 72 hours. Apply one patch behind the ear every 3 days 5 Patch ctive ondansetron orally disintegrating (ZOFRAN ODT) 4 mg disintegrating tablet Take 1 tablet by mouth every 8 hours as needed for Nausea/Vomiting. 30 tablet ctive topiramate (TOPAMAX) 50 mg tablet Take 50 mg by mouth twice daily.Active FLUoxetine (PROZAC) 10 mg capsule Take 10 mg by mouth once daily. Active cetirizine (ZYRTEC) 10 mg tablet Take 10 mg by mouth once daily.Active propranolol ER (INDERAL LA) 120 mg 24 hr capsule Take 120 mg by mouth once daily.12/28/2020ctive verapamil SR (CALAN SR, ISOPTIN SR) 120 mg CR tablet Take 1 tablet by mouth once daily.12/28/2020ctive NURTEC ODT 75 mg disintegrating tablet Take 1 tablet by mouth PRN(NO DISPENSE) for Migraine Headache (see administration instructions).01/12/2021ctive nystatin (MYCOSTATIN) powder Indications:S/P gastric bypass,Fungal skin infectionApply to affected skin up to 4 times per day 60 g ctive baclofen (LIORESAL) 10 mg tablet Take 10 mg by mouth as directed.Active fexofenadine (RODY ALLERGY) 180 mg tablet Take 180 mg by mouth once daily.Active biotin 5,000 mcg ODT Take by mouth.Active cyanocobalamin (VITAMIN B-12) 1,000 mcg tab Take 1,000 mcg by mouth once daily.Active Lactobacillus acidophilus (PROBIOTIC ORAL) Take by mouth.Active multivit-min/iron/folic acid/K (BARIATRIC MULTIVITAMINS ORAL) Take by mouth.Active clotrimazole (ALEVAZOL TOPICAL) Apply to affected area.Active dicyclomine HCl (BENTYL ORAL) Take by mouth.Active alprazolam (XANAX ORAL) Take by mouth.Active omeprazole (PRILOSEC) 20 mg capsule Take 20 mg by mouth once daily.10/13/2020iscontinued Active Problems ProblemNoted DateDiagnosed DatePONV (postoperative nausea and vomiting) 10/24/20201218Kodahrrv22/07/2018Positive JUANITA (antinuclear antibody)07/23/2018 Bhzmgbzfrmuk76/07/2018Left ureteral stone06/27/2017Left lower quadrant pain 06/27/2017Ureteral stone with wnxtslwkeyfodn54/12/2017HypertensionMigraineGERD (gastroesophageal reflux disease)Iron deficiency anemiaOSA (obstructive sleep apnea)HyperlipemiaAsthma Overview (10/17/2020): uses inhaler a few times a month Resolved Problems ProblemNoted DateDiagnosed DateResolved DateMorbid hyvzpen34 Immunizations ImmunizationAdministration DatesNext DueCOVID-19 original vaccine, full dose, monovalent (MODERNA)09/28/2020influenza (IIV4) vaccine, age 6 mo - 64 yr, quadrivalent, PF (AFLURIA, FLUARIX, FLULAVAL, FLUZONE)07/01/2020influenza vaccine, unspecified laeahnkxsnb94/02/2020 Family History Medical HistoryRelationCommentsObesityBrotherNo Known ProblemsFatherHeart Maternal AuntunknownCancerMaternal GrandfatherCancerMaternal Grandmother HyperlipidemiaMaternal GrandmotherHypertensionMaternal GrandmotherAccidental DeathMotherCancerPaternal GrandmotherRelationStatusCommentsBrotherFatherAlive Maternal AuntMaternal GrandfatherDeceasedMaternal GrandmotherDeceasedMother DeceasedPaternal GrandfatherDeceasedPaternal GrandmotherDeceased Social History Tobacco UseTypesPacks/DayYears UsedDateSmoking Tobacco: NeverSmokeless Tobacco: NeverAlcohol UseStandard Drinks/WeekCommentsYes1 (1 standard drink = 0.6 oz pure alcohol)once a month, 1 drinkAUDIT-CAnswerDate RecordedQ1: How often do you have a drink containing alcohol?2-4 times a month01/05/2020Q2: How many drinks containing alcohol do you have on a typical day when you are drinking?1 or 2 01/05/2020Frequency of Binge DrinkingNot on file01/05/2020PHQ-2AnswerDate RecordedPHQ-2 kljqe116Area Deprivation IndexAnswerDate RecordedNational Score (1-100), lower number is lower xaes786110/14/2022State Score (1-10), lower number is lower riskNot on file3Data from: https://www.neighborhoodatlas.medicine.[facility] [place].edu/. Last address [facility]3CommentsNoSex and Gender InformationValueDate RecordedSex Assigned at BirthNot on fileLegal SexFemale 06/27/2017 12:59 PM EDTGender IdentityNot on fileSexual OrientationStraight 10/11/2020 11:58 AM EST Last Filed Vital Signs Vital SignReadingTime TakenCommentsBlood Ubeaenne155/9207/ 2:47 PM EDT Kisia4594 2:47 PM XCWVgesqrckgzs77.2 ??C (98.9 ??F)04/12/2022 2:47 PM EDTRespiratory Vspz966011/10/2021 11:08 AM ESTOxygen Qburgaiqrc820%11/10/2021 11:08 AM ESTInhaled Oxygen Concentration--Mpugmw44.5 kg (122 lb 6.4 oz) 04/12/2022 2:47 PM EVFMgvrip467.4 cm (5')04/12/2022 2:47 PM EDTBody Mass Index 23.907 2:47 PM EDT Plan of Treatment Health MaintenanceDue DateLast DoneCommentsAnxiety Kdvxpjhkn95/08/2001Depression Suukylcsg63/08/2001HIV Xpzuudann49/08/2001Hepatitis C Kzudnstin27/08/2001 DTaP,Tdap,Td Vaccine (1 - Tdap)2002Hepatitis B Vaccine (1 of 3 - 19+ 3- dose series)2002Cervical Cancer Oqtrfmlky03/08/2004HPV Vaccine (1 - 3-dose SCDM series)2010Mammogram Qdsuefict26/08/2023Covid-19 Vaccine ( - 2024- season)502/, 09/28/2020Influenza Vaccine (#1)2025 07/01/2020, 06/17/2020, 06/30/2018 Medical Devices ImplantedTypeAreaManufacturerDevice IdentifierShelf Expiration DateModel / Serial / LotImplantImplantUterusDescription:Mirena IUD Insurance Care Teams Team MemberRelationshipSpecialtyStart DateEnd Date Vernon Castano III, [address] [place] [address] PCP - GeneralFamily Medicine10/04/20
--- OUTSIDE RECORDS SUMMARY | 2025-09-01 09:45 | XMS_ITS | Clinical Summary ---
Author Organization [facility] Address [address] [place] [address] Care Team Providers Care Special Agent Secret Service Name Role Phone Unavailable Primary Care Provider Unavailabl e Social History Tobacco UseTypesPacks/DayYears UsedDateSmoking Tobacco: Never Assessed CommentsUnknownSex and Gender InformationValueDate RecordedSex Assigned at Not on fileLegal QkxCbajzq65/30/2022 12:30 AM EDTGender IdentityNot on file Sexual OrientationNot on file Plan of Treatment Not on file
--- OUTSIDE RECORDS SUMMARY | 2025-09-01 09:45 | XMS_ITS | Clinical Summary ---
Author Organization [facility] Address [address] [place] [address] Care Team Providers Care Clerk Rating Name Role Phone Candis Colindres MD Primary Care Provider [phone] Allergies Active AllergyReactionsCriticalityNoted DateCommentsSumatriptanGI intolerance 02/06/20243393RopuuXdazYws37/23/2024Wound Dressing Vebxqcco82/23/2024 Medications MedicationSigDispense QuantityRefillsLast FilledStart DateEnd DateStatus atomoxetine (Strattera) 80 MG capsule Take 80 mg by mouth Daily11/13/2023ctive DULoxetine (Cymbalta) [address] capsule Take 60 mg by mouth Daily11/23/2023ctive traZODone (Desyrel) 50 MG tablet Take 50 mg by mouth at msjpbnu4112/25/2023ctive Vraylar 1.5 MG capsule Take 1 capsule by mouth Daily12/24/2023ctive pantoprazole (ProtoNix) 20 MG EC tablet Take 20 mg by mouth in the morning. Take before meals.08/13/2023ctive albuterol HFA 90 mcg/act inhaler Inhale 2 puffs every 4 (four) hours if needed for wheezingActive fluticasone (Flonase) 50 MCG/ACT nasal spray Administer 1 spray into each nostril Daily Shake gently. Before first use, prime pump. After use, clean tip and replace cap.Active Levonorgestrel (Mirena, 52 MG,) 20 MCG/DAY intrauterine device 52 mg10/28/2023ctive pregabalin (Lyrica) 100 MG capsule Take 100 mg by mouth in the morning and 100 mg in the evening and 100 mg before bedtime.01/08/2024ctive fremanezumab (Ajovy) 225 MG/1.5ML auto-injector Indications:Migraine without status migrainosus, not intractable, unspecified migraine typeInject one 225 mg/1.5mL injection subcutaneously once per month 1.68 mL 11004/06/2024ctive Additional Information Patient not taking.Reported on 09/21/2024 atomoxetine (Strattera) 40 MG capsule TAKE 1 CAPSULE BY MOUTH EVERY DAY IN THE MORNING FOR 30 DAYS05/19/2024ctive Rimegepant Sulfate (Nurtec) 75 MG tablet dispersible Indications:Migraine without status migrainosus, not intractable, unspecified migraine typeDISSOLVE 1 TABLET ON THE TONGUE EVERY OTHER DAY 16 tablet ctive phentermine (Adipex-P) 37.5 MG tablet Take 37.5 mg by mouth Daily07/08/2024ctive tiZANidine (Zanaflex) 4 MG tablet TAKE ONE TABLET BY MOUTH THREE TIMES A DAY NEEDED FOR MUSCLE SPASTICITY 07/23/2024ctive DULoxetine (Cymbalta) [address] capsule TAKE 1 CAPSULE BY MOUTH EVERY DAY FOR 30 DAYS09/13/2024ctive Active Problems ProblemNoted DateDiagnosed DateChronic migraine without aura with status migrainosus, not bazxxfmriiy76/15/2024Facet vgizfydnktd24/15/2024aresthesias 05/31/2024 Overview (05/31/2024): See above. DDD (degenerative disc disease), fwmfao4705/31/2024 Overview (05/31/2024): Painful paresthesias in lower extremities [...] PLAN - Continue following with pain management ([place]) - Continue Lyrica 50 mg 3 times a day. - Continue duloxetine 90 mg daily (ordered by PCP) Facet arthropathy, xskrcb9505/31/2024ervical txpwiydnzlx17/15/2024 Overview (05/31/2024): Patient previously reported worsening right arm numbness and tingling, even with improvement of herneck pain. Cervical MRI 11/10/2021 with degenerative changes at C5-C6 and C6-C7 with moderate neuralforaminal stenosis at C6-C7 on the left. She does admit that recent trigger injections helped with her muscle pain but neck pain seems to be her primary complaint today. PLAN - Referral to PT - Continue follow up with pain mangement ([place]) - Medications as above Yhdljdtwablw38/15/2024 Overview (05/31/2024): History of fibromyalgia, with previous evaluation with Rheumatology (though not for several years).This may be causative for her painful paresthesias and fatigue, especially given the sporadic nature and lack of dermatomal distribution. PLAN - As above GERD (gastroesophageal reflux disease)05/31/20245134Mzndzfty21/15/2024Episodic tension-type headache, not qphxhahnhsp91/15/2024 Overview (05/31/2024): See above. Chronic migraine with aura05/31/2024 Overview (05/31/2024): Chronic migraines with aura since [...] TID, prn; side effects were discussed Nasal rdyutlvajhl64/03/2024nxiety cytyevde57/23/2368Raxjokhifowj49/23/2024 Updltqkold16/23/0073Wdnmapyrz30/23/0028Hvfhkxg53/23/2024OSA (obstructive sleep apnea)02/06/20244359Xlglgs92/23/4644Hxfsbzbkiumuqqjyqykf78/23/2024rediabetes 02/06/20246658Wqbxsfpqosjheh17/23/2024 Family History Medical HistoryRelationNameCommentsAlcohol abuseBrotherDepressionBrother HypertensionFatherRelationNameStatusCommentsBrotherFatherAliveMotherDeceased Social History Tobacco UseTypesPacks/DayYears UsedDateSmoking Tobacco: Every DayCigarettes Smokeless Tobacco: NeverAlcohol UseStandard Drinks/WeekCommentsYes0 (1 standard drink = 0.6 oz pure alcohol)caffeine: coffee and pop on occasionAUDIT-CAnswer Date RecordedQ1: How often do you have a drink containing alcohol?Monthly or less05/31/2024Q2: How many drinks containing alcohol do you have on a typical day when you are drinking?1 or Q3: How often do you have six or more drinks on one occasion?Never05/31/2024CommentsUnknownSex and Gender InformationValueDate RecordedSex Assigned at BirthNot on fileLegal SexFemale 11/28/2022 9:44 PM EDTGender IdentityNot on fileSexual OrientationNot on file Last Filed Vital Signs Vital SignReadingTime TakenCommentsBlood Thupfxie152/8205 8:26 AM EDT Mdudj227301/21/2025 8:26 AM EDTTemperature--Respiratory Qhlb563401/21/2025 8:26 AM EDTOxygen Iftnoedlhu79%01/21/2025 8:26 AM EDTInhaled Oxygen Concentration-- Ujbujx43.5 kg (173 lb)01/21/2025 8:26 AM VYBMsislj961.9 cm (5' 1 )01/21/2025 8:26 AM EDTBody Mass Index32.69001/21/2025 8:26 AM EDT Plan of Treatment DateTypeDepartmentCare Team (Latest Contact Info)Xkxwurjqitq78/05/2026 10:00 AM ESTOffice Visit [facility] [address] [facility] [address] [place] [address] Gisele Harvey DO [address] [facility] [address] [place] [address] Health MaintenanceDue DateLast DoneCommentsPap Smear02/22/2004Cervical Cancer Lkmhfcazb70/08/2013HPV/Grylrd8702/21/20132035Chtovattz93/08/2023COVID-19 Vaccine ( season)5011/11/2020, 09/28/2020Influenza VaccineCompleted 06/24/2025, 07/14/2024, 07/01/2020, Additional history existsPneumococcal Vaccine: Pediatrics (0 to 5 Years) and At-Risk Patients (6 to 64 Years)Aged Out No longer eligible based on patient's age to complete this topic Insurance Care Teams Team MemberRelationshipSpecialtyStart DateEnd Candis Colindres MD [address] [place] [address] PCP - GeneralFamily Medicine01/21/25
--- OUTSIDE RECORDS SUMMARY | 2025-09-01 09:45 | XMS_ITS | Patient Health Record ---
Author Organization [facility] Address [address] [place] [address] Care Team Providers Care Plumbing Mechanic Name Role Phone Jennifer York Primary Care Provider [phone] Soila Balderrama Unavailable [phone] Maria Luisa Restrepo Unavailable [phone] Allergies Allergen (clinical drug ingredient) Drug/Non Drug Allergy documented on EMR Reaction Allergy Type Onset Date Status sumatriptan Imitrex nausea Drug Allergy ActiveAdhesiveUnknownAllergyActiveLatexLatexrashAllergyActive Reason For Referral No Information Medications Medication SIG (Take, Route, Frequency, Duration) Notes Start Date End Date Status Nurtec 75 MG Tablet Disintegrating 1 tab let on the tongue and allow to dissolve Orally daily ActivehydrOXYzine Pamoate 50 MG Capsule 1 capsule Orally every 6 hours As needed 5ActiveMirenaActiveAtomoxetine HCl 40 MG Capsule1 capsule Orally twice a day; Duration: 30 days312/5ActiveZonisamide 100 MG CapsuleOral; Duration: 30 DaysActiveLyrica 50 MG Capsule1 capsule Orally three times a day (tid)ActiveVraylar 1.5 mg Capsuleone capsule orally dailyActiveVentolin HFA 108 (90 Base) MCG/ACT Aerosol Solution1 puff as needed Inhalation every 4 hrsActive DULoxetine HCl 30 MG Capsule Delayed Release Particles1 capsule Orally Once a dayActiveOndansetron HCl 4 MG Tablet1 tablet Orally Once a dayActiveDULoxetine HCl 60 MG Capsule Delayed Release Particles1 capsule Orally Once a dayActive Pantoprazole Sodium 20 MG Tablet Delayed Release1 tablet Orally Once a day Not-Taking/PRNPropranolol HCl ER 120 MG Capsule Extended Release 24 Hour1 capsule Orally as directedNot-Taking/PRNTopiramate 50 MG Tablet1 tablet Orally Twice a day; Duration: 30 daysNot-Taking/PRNBaclofen 10 MG Tablet1 tablet Orally dailyNot-Taking/PRNtraZODone HCl 100 MG Tablet1 tablet at bedtime as needed Orally Once a day; Duration: 30 daysincrease dosage. please disregard the 50mg refillsActiveVerapamil HCl ER 180 MG Tablet Extended Release1 tablet Orally Once a dayNot-Taking/PRN Social History Tobacco Use: Social History Observation Description Date Details (start date - stop date) Never Smoker NA - NA Social History GeneralSocial InfoQuestionAnswerNotesDepression Screening (PHQ-9):Little interest or pleasure in doing thingsSeveral daysFeeling down, depressed, or hopelessSeveral daysTrouble falling or staying asleep, or sleeping too muchMore than half the daysFeeling tired or having little energyMore than half the days Poor appetite or overeatingNot at allFeeling bad about yourself-or that you are a failure or have let yourself or your family downNot at allTrouble concentrating on things, such as reading the newspaper or watching television Nearly every dayMoving or speaking so slowly that other people could have noticed. Or the opposite being so fidgetyor restless that you have been moving around a lot more than usualSeveral daysThoughts that you would be better off , or of hurting yourself in some wayNot at allTotal Mvcwb65Xpqqxiepmjgjq Moderate DepressionTobacco Screen:Are you a:never smokerAlcohol Screening:Did you have a drink containing alcohol in the past year?Yes? How often did you have a drink containing alcohol in the past year?Monthly or less (1 point)? How many drinks did you have on a typical day when you were drinking in the past year?1 or 2 (0 points)? How often did you have six or more drinks on one occasion in the past year?Never (0 points)Lyzynx9RwtmwiklhazclwZrjmryjm Problems Problem Type SNOMED Code ICD Code Onset Dates Problem Status W/U Status Risk Notes Problem Body mass index 30+ - obesity (756660402) BMI 30.0-30.9,adult (Z68.30) ActiveconfirmedProblemPost traumatic stress disorder (02774226)Post traumatic stress disorder (F43.10)ActiveconfirmedProblemRecurrent major depression (68997297)Major depressive disorder, recurrent episode with anxious distress (F33.9)Activeconfirmed Vital Signs Heart Rate 121 /min 06/04/2025 Blood pressure kjmmetszo471 mm Hg06/04/20251139Ovqlrnfw46 %06/04/20257002Msisox81 in 06/04/2025lood pressure ratcersh189 mm Hg06/04/20253051Itrbem293.0 lbs06/04/2025MI 31.09 kg/m206/04/2025 Encounters Encounter Location Date Provider Diagnosis [facility] [address] [place] [address] 11/16/2024 Jennifer York Major depressive disorder, recurrent episode with anxious distress F33.9 and Post traumatic stress disorder F43.10 [facility] [address] [place] [address] 02/15/2025 Jennifer York Major depressive disorder, recurrent episode with anxious distress F33.9 and Post traumatic stress disorder F43.10 [facility] [address] [place] [address] 05/10/2025 Jennifer York Major depressive disorder, recurrent episode with anxious distress F33.9 and Post traumatic stress disorder F43.10 [facility] [address] [place] [address] 06/04/2025 Maria Luisa Restrepo Major depressive disorder, recurrent episode with anxious distress F33.9 and Post traumatic stress disorder F43.10 [facility] [address] [place] [address] 11/12/2024 Jennifer York Major depressive disorder, recurrent episode with anxious distress F33.9 [facility] [address] [place] [address] 01/04/[address] [facility] [place] [address]/15/2025 Jennifer CoxMajor depressive disorder, recurrent episode with anxious distress F33.9[facility] [place] [address] [place] [address] 06/08/2025Soila BalderramaMajor depressive disorder, recurrent episode with anxious distress F33.9 Assessments Encounter Date Diagnosis (ICD Code) Assessment Notes Treatment Notes Treatment Clinical Notes Section Notes 11/16/2024 Major depressive dis order, recurrent episode with anxious distress (ICD-10 - [...] contact information was provided to the patient/guardian. 02/15/2025Major depressive disorder, recurrent episode with anxious distress [...] contact information was provided to the patient/guardian. 05/10/2025Major depressive disorder, recurrent episode with anxious distress [...] contact information was provided to the patient/guardian. 05/31/2025Major depressive disorder, recurrent episode with anxious distress (ICD-10 - F33.9)05/10/2025Post traumatic stress disorder (ICD-10 - F43.10) 06/04/2025Major depressive disorder, recurrent episode with anxious distress (ICD-10 - F33.9) Recommended treatment is: _ FDA approved medication for this age group include Selective Serotonin Reuptake Inhibitors (SSRI) and Selective Norepinephrine Reuptake Inhibitors (SNRI). . Selective serotonin reuptake inhibitors? can cause nausea, headache, upset stomach, diarrhea, [...] contact information was provided to the patient/guardian. 06/08/2025Major depressive disorder, recurrent episode with anxious distress (ICD-10 - F33.9)02/15/2025Post traumatic stress disorder (ICD-10 - F43.10) 11/12/2024Major depressive disorder, recurrent episode with anxious distress (ICD-10 - F33.9)11/16/2024Post traumatic stress disorder (ICD-10 - F43.10) 06/04/2025Post traumatic stress disorder (ICD-10 - F43.10) Plan Of Treatment Next Appt Details Provider Name:Kiara sadler, 10/07/2025 11:00:00 AM, [address] [facility] [place], [address], Insurance Providers Payer Name Payer Address Payer Phone Subscriber Number Group Number Insured Name Patient Relationship to Insured Coverage Start Date Coverage End Date [facility] [facility] [address] [place] [address] [id number] NORAH ESCAMILLA Self - patient is the insured 3 [employer] [place] MedicaidPO [address] [place] [phone] [id number], SALLYSelf - patient is the [id number] Wrap [facility] [address] [place] [id number], SALLYSelf - patient is the [id number] Medical (General) History Medical History History ICD Code generalized anxiety plantar fasciitisessential hypertensionGERDmajor depressive disorder, single episode, unspecifiedMyalgiaMyositisSleep apneahypercholesterolemiaasthma osteoarthritisseasonal allergiesSurgical History Surgery Date(Month/Year) Orthopedic, foot surgery, right for plan tar fasiciitis 04/2018 procedure of knee 2013 Gastric Bypass, w/hiatal hernia repair10/24/20202256Vkdkcetrvacfuja9/1996hysterectomy 2005orthopedic [id number] management, nerve block [id number] Hospitalization History Reason Date(Month/Year) see surgery hx.
--- NOTE | 2025-09-01 09:58 | P.CN_ITS ---
Consult Note: HPI Data of Consult Patient: known to practice within the last 3 years Consult date: 06/30/25 Requesting Physician: Miladys Vivas NP Primary Care Provider: PETEY BURNETT Consult Narrative Reason for consult: low back pain Narrative: Nica Estrada a pleasant 40 year old female with chronic low back pain >12 months secondary to lumbar ddd, lumbar stenosis, and lumbar spondylosis presents for evaluation. pt noting low back pain aching 4-5/10 increasing with standing, lifting, bending, activity. notes improvement in her pain with sitting and massage chair. utilizing tylenol prn, robaxin 500-1000mg TID, zonegran 100mg BID, and duloxetine 90mg daily without side effects. recently underwent updated lumbar MRI with results below, similar from prior. since last visit has had increased pain radiating down left>right leg with worsening cramping, numbness and tingling to BLE. pt underwent bilateral l5-s1 TFESI on 06/21/25 with 50% improvement ongoing cc:: CC: Miladys Vivas NP Review of Systems ROS Musculoskeletal Reports: back pain PFSH PFSH Medical History Change in bowel habits ?R19.4 - Change in bowel habit (ICD-10) Prediabetes ?R73.03 - Prediabetes (ICD-10) Obesity ?E66.9 - Obesity, unspecified (ICD-10) Obstructive hydronephrosis Migraines ?G43.909 - Migraine, unspecified, not intractable, without status migrainosus (ICD-10) Lipoma of back ?D17.1 - Benign lipomatous neoplasm of skin and subcutaneous tissue of trunk (ICD-10) Abdominal pain ?R10.9 - Unspecified abdominal pain (ICD-10) Dyssynergia ?R27.8 - Other lack of coordination (ICD-10) Depression ?F32.A - Depression, unspecified (ICD-10) Colon polyps ?K63.5 - Polyp of colon (ICD-10) Chronic constipation ?K59.09 - Other constipation (ICD-10) Asthma ?J45.909 - Unspecified asthma, uncomplicated (ICD-10) Hiatal hernia ?K44.9 - Diaphragmatic hernia without obstruction or gangrene (ICD-10) Fibromyalgia ?M79.7 - Fibromyalgia (ICD-10) Osteoarthritis ?M19.90 - Unspecified osteoarthritis, unspecified site (ICD-10) Low back pain ?M54.50 - Low back pain, unspecified (ICD-10) Anxiety ?F41.9 - Anxiety disorder, unspecified (ICD-10) Hypercholesterolemia ?E78.00 - Pure hypercholesterolemia, unspecified (ICD-10) Hypertension ?I10 - Essential (primary) hypertension (ICD-10) Surgical History H/O gastric bypass ?Z98.84 - Bariatric surgery status (ICD-10) S/P foot surgery, right ?Z98.890 - Other specified postprocedural states (ICD-10) S/P cholecystectomy ?Z90.49 - Acquired absence of other specified parts of digestive tract (ICD- 10) S/P ?Z98.891 - History of uterine scar from previous surgery (ICD-10) Family History Other Family history of myocardial infarction Social History Within the past year, how often did you have a drink containing alcohol: 2-4 times a month Smoking status: Never smoker Non-prescribed substance use: denies use 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 Highest level of school completed/degree received: some college, no degree Meds Home Medications and Allergies Home Medications ?Medication ?Instructions ?Recorded ?Confirmed ?Type duloxetine 30 mg capsule,delayed 90 mg PO QDAY 3 06/21/25 History release cariprazine 1.5 mg capsule 1.5 mg PO DAILY 08/09/23 History (Vraylar) rimegepant 75 mg disintegrating 75 mg PO DAILY PRN slick mahi 08/09/23 06/21/25 History tablet (Nurtec ODT) headache trazodone 50 mg tablet 50 mg PO DAILY 08/09/2303/10 History hydroxyzine pamoate 50 mg capsule mg 02/01/25 History methocarbamol 500 mg tablet 1,000 mg PO TID 05/13/25 1 History atomoxetine 40 mg capsule 40 mg PO DAILY 06/30/2506/16 History cetirizine 10 mg tablet (24Hour 10 mg PO DAILY PRN all ergy symptoms 06/30/25 06/30/25 History Allergy) ferrous sulfate 325 mg (65 mg 325 mg PO DAILY 06/30/25 06/30/25 History iron) tablet (Feosol) zonisamide 100 mg capsule 100 mg PO BID 06/30/2506/30 History (Zonegran) Allergies Allergy/AdvReac Type Severity Reaction Status Date / Time latex Allergy Severe Rash Verified 03/15/25 10:47 amitriptyline AdvReac Mild Nausea Verified 03/15/25 10:47 NSAIDS (Non-Steroidal AdvReac Unknown Verified 03/15/25 10:47 Anti-Inflamma Exam Constitutional Documenting provider has reviewed patient's vital signs: yes Common normals: no apparent distress, oriented x3 and alert General appearance: cooperative [facility] Common normals: normocephalic, hearing grossly normal bilaterally and moist oral mucous membranes Head and scalp: normocephalic Eye Common normals: PERRL Pupil: PERRL Neck & C-Spine Common normals: full ROM General: normal visual inspection Chest Common normals: inspection of chest normal Respiratory Common normals: normal respiratory effort, no retractions and no use of accessory muscles Back & Pelvis Lumbar spine/lower back: ROM limited, pain with ROM and lumbar spinal tenderness Other: sensation intact BLE strength 5/5 in BLE increased low back pain with forward flexion and facet loading Neuro Common normals: oriented x3 Sensorium/orientation: alert Psych Common normals: mental status grossly normal, thought process normal, cooperative, affect normal, speech normal and activity/motor behavior normal Speech: normal speech Thought process: normal thought process Results Imaging lumbar mri: Attestation: I have reviewed the pertinent imaging results. Radiologist's impression: In keeping with the prior dictation, there is partial lumbarization of S1 with rudimentary disc at S1-S2. Lumbar vertebral heights and alignment maintained. Mild intervertebral space narrowing L3-L5 and moderate intervertebral space narrowing at L5-S1. Conus medullaris terminates normally at L1-L2. Nerve roots of the cauda equina are unremarkable. Paraspinal soft tissues are unremarkable. T12-L3: No significant disc disease, central canal or neural foraminal narrowing identified. L3-4: Minor broad-based bulge with mild facet arthropathy. There is a dorsal subchondral cysts versus synovial cyst involving the left facet joint. No significant canal or neural from narrowing identified. L4-5: Circumferential disc bulge with broad-based central bulge. Mild canal narrowing. Mild right mild to moderate left neural from narrowing. Cgxj-bn-qqrsinvd facet arthropathy. L5-S1: Circumferential disc bulge with left central/subarticular zone extrusion dorsally displacing the traversing left S1 nerve root. There is moderate facet arthropathy. Syla-vp-zohcxxtz right neural foraminal narrowing and moderate left neural foraminal narrowing identified. Additional Findings Additional findings: If on a controlled substance or opioids, I have checked an [place] report on this patient and there are no aberrancies noted in the prescribing history.??If on a controlled substance or opioid a drug screen was completed and reviewed within the last year, and if there has not been a drug screen completed we ordered one today to monitor higher risk, state monitored pain medication use. As part of providing excellent, safe, comprehensive care, the following was completed at our patient's visit: 1. A medication reconciliation and review to ensure accurate knowledge of current/active medications, including asking our patients to inform us about any yqed-trl-huaklsk medications or herbal remedies/nutritional supplements/alternative remedies. 2. A review to specifically ensure our patients have had annual screening for screening for depression, screening for tobacco use, and screening for unhealthy alcohol use. For concerning screenings had a discussion with the patient, provided patient education, and recommended follow-up with primary care provider when appropriate. If patient noted with a risk of falling, they received education on strength, gait, and balance training to prevent future risk of falling. Portions of this note may have been carried over from the previous visit and updated as appropriate. Please note this office utilizes paper charting in addition to the electronic medical record. A list of current medications, vitals, and PMH is available there as the clinical staff outside of myself do not have access to [employer] charting during the clinic day operations. As part of providing quality comprehe nsive care the current medications, vitals, and PMH were reviewed in the paper chart. Assessment and Plan Assessment and Plan (1) Lumbar stenosis with neurogenic claudication: Assessment and Plan: The patient has had over 3 months of moderate to severe low back pain with functional impairment and inadequate response to conservative care including NSAIDS (unless there are contraindication such as concurrent blood thinners), multiple oral or topical pain medications, and home exercise program/physical therapy.? Patient has completed >6 weeks of guided home exercise program and/or formal physical therapy program without relief of their symptoms.? (2) Lumbar disc displacement without myelopathy: (3) Myalgia: (4) Sacroiliitis: (5) Lumbar spondylosis: Plan overall noting at least 50% improvement post bilateral L5-S1 TFESI. may repeat in the future if needed. pt to call if pain significantly worsens. will have a nurse f/u with pt after 09/21/25 continue zonegran 100mg BID continue robaxin 500-1000mg TID PRN pain/spasms continue HEP as tolerated
== END 2025-09-01 09:43 | disposition home or self-care (01) ==
LOC: PM 09:42
PROVIDERS: PCP Physician Assistant; Visit Provider Nurse Practitioner
DX: M48.062 Spinal stenosis, lumbar region with neurogenic claudication (principal); M51.26 Other intervertebral disc displacement, lumbar region; M79.18 Myalgia, other site; M46.1 Sacroiliitis, not elsewhere classified; M47.816 Spondylosis without myelopathy or radiculopathy, lumbar region
CPT/HCPCS: G0463